=== PATIENT | female | born 1945 | race Caucasian/White ===

== ENCOUNTER 2017-06-04 11:23 | Emergency (ER) | payer MEDICARE ==
--- NOTE | 2017-06-04 11:55 | ER Document Report ---
ED Medical Screen (RME) - General Mode of Arrival: Wheelchair Information source: Patient TRAVEL OUTSIDE OF THE [place] IN LAST 30 DAYS: No - HPI Patient complains to provider of: L foot pain Onset: Other - Pt. with several day h/o L foot pain -- denies h/o trauma. Also on home 02 but ran out of 02 in tank yesterday and has some wheezing. Pt. continues to smoke. - General Chief Complaint: Foot Pain Stated Complaint: LEFT FOOT PAIN Time Seen by Provider: 06/04/17 11:52 - Related Data Allergies/Adverse Reactions: ibuprofen [From Motrin] Allergy (Intermediate, Verified 11/07/16 12:05) norepinephrine bitartrate [From Levophed Bitartrate] Adverse Reaction ( Intermediate, Verified 11/07/16 12:05) Bradycardia Past Medical History - Social History Frequency of alcohol use: None Drug Abuse: None - Past Medical History Cardiac Medical History: Reports: Hx Congestive Heart Failure, Hx Coronary Artery Disease, Hx DVT, Hx Hypertension Denies: Hx Heart Murmur Pulmonary Medical History: Reports: Hx Asthma, Hx COPD Denies: Hx Respiratory Failure, Hx Sleep Apnea, Hx Tuberculosis Endocrine Medical History: Reports: Hx Diabetes Mellitus Type 2 Renal/ Medical History: Reports: Hx Renal Insufficiency. Denies: Hx Peritoneal Dialysis GI Medical History: Reports: Hx Diverticulitis, Hx Gastroesophageal Reflux Disease, Hx Hiatal Hernia, Hx Ulcer Musculoskeltal Medical History: Reports Hx Arthritis Psychiatric Medical History: Denies: Hx Depression Traumatic Medical History: Reports: Hx Fractures - several broken ribs Past Surgical History: Reports: Hx Appendectomy, Hx Cholecystectomy, Hx Herniorrhaphy, Hx Hysterectomy, Hx Orthopedic Surgery - rotator cuff - Immunizations Immunizations up to date: Yes Hx Diphtheria, Pertussis, Tetanus Vaccination: No Doctor's Discharge - Discharge Clinical Impression: Plantar fasciitis of left foot Condition: Stable Disposition: HOME, SELF-CARE Instructions: Plantar Fasciitis or Heel Spur ([facility]), Ice & Elevation ([facility]), Warm Packs ([facility]) Additional Instructions: Rest, Ice, Compression, Elevation Tylenol/ibuprofen as needed Light stretches daily-- as shown Strength exercises as able Moist heat and massage may help Epsom salt soaks may help F/u with your PCP in 2-3 days for a recheck Consider consult(s) with Orthopedics/podiatry for ongoing/worsening symptoms Return to the ED with any worsening pain, swelling, numbness/tingling, muscle weakness, development of fever, redness, red tracking/streaks, abscess, purulent discharge, or any other worsening/concerning symptoms otherwise. Forms: Elevated Blood Pressure, Smoking Cessation Education Referrals: [facility] ([facility]) [Provider Group] - Follow up in 1 week
--- NOTE | 2017-06-04 12:16 | RADIOLOGY REPORT (SQ) ---
EXAM DESCRIPTION: FOOT LEFT COMPLETE COMPLETED DATE/TIME: 06/04/2017 12:07 pm REASON FOR STUDY: L foot pain COMPARISON: None. NUMBER OF VIEWS: Three views. TECHNIQUE: AP, lateral and oblique without weight bearing radiographic images acquired of the left f oot. LIMITATIONS: None. FINDINGS: MINERALIZATION: Normal. BONES: No acute fracture or dislocation. No worrisome bone lesions. No significant osteophytes. JOINTS: No erosions. No clovis-articular osteopenia. No chondrocalcinosis. SOFT TISSUES: No swelling. No calcifications. OTHER: No other significant finding. IMPRESSION: NEGATIVE STUDY OF THE LEFT FOOT. NO EXPLANATION FOR PAIN. TECHNICAL DOCUMENTATION: JOB ID: [id number] [employer]- All Rights Reserved
[2017-06-04] MEDS ORDERED: METHYLPREDNISOLONE INJ 125 MG/2 ML SDV IM ONE (12:22)
--- NOTE | 2017-06-04 12:34 | ER Document Report ---
HPI - HPI Pain Level: 5 Notes: Patient is a 71-year-old female presents the ED complaining of left foot pain 6 months with an increased pain the last couple days. Patient states that she has pain with ambulation and with her first morning steps. Patient states the pain is sharp and achy. The pain does not radiate. Patient states she still is move her foot around in her toes without any difficulties. She still has sensation in her toes without any numbness/tingling. She has not noticed any redness, abscess, discharge. Patient has a history of COPD, CHF, hypertension, diabetes, and GERD. She has chronic issues with wheezing and shortness of breath. She denies any acute respiratory changes or distress. Patient states that she is not here for her breathing, only her foot. Denies any fever, headache, URI, sore throat, chest pain, palpitations, abdominal pain, nausea/ vomiting/diarrhea, dysuria, muscle paralysis/weakness, or rash. Patient does smoke but does not do any other illicit drugs. Patient is allergic to NSAIDs as that causes a rash. No other recent illness, travel, sick contacts. - ROS Notes: REVIEW OF SYSTEMS: CONSTITUTIONAL : Denies fever, chills, or sweats. Denies recent illness. EENT: Denies eye, ear, throat, or mouth pain or symptoms. Denies nasal or sinus congestion or discharge. Denies throat, tongue, or mouth swelling or difficulty swallowing. CARDIOVASCULAR: Denies chest pain. Denies palpitations or racing or irregular heart beat. Denies ankle edema. RESPIRATORY: See HPI. Chronic without acute changes per patient. GASTROINTESTINAL: Denies abdominal pain or distention. Denies nausea, vomiting , or diarrhea. Denies blood in vomitus, stools, or per rectum. Denies black, tarry stools. Denies constipation. GENITOURINARY: Denies difficulty urinating, painful urination, burning, frequency, blood in urine, or discharge. MUSCULOSKELETAL: see hpi SKIN: Denies rash, lesions or sores. NEUROLOGICAL: Denies confusion or altered mental status. Denies passing out or loss of consciousness. Denies dizziness or lightheadedness. Denies headache. Denies weakness or paralysis or loss of use of either side. Denies problems with gait or speech. Denies sensory loss, numbness, or tingling. ALL OTHER SYSTEMS REVIEWED AND NEGATIVE. Dictation was performed using [employer] voice recognition software - CARDIOVASCULAR Cardiovascular: DENIES: Chest pain - REPRODUCTIVE Reproductive: DENIES: : - DERM Skin Color: [place] Past Medical History - General Information source: Patient - Social History Smoking Status: Current Every Day Smoker Chew tobacco use (# tins/day): No Frequency of alcohol use: None Drug Abuse: None Family History: Hypertension Patient has suicidal ideation: No Patient has homicidal ideation: No - Past Medical History Cardiac Medical History: Reports: Hx Congestive Heart Failure, Hx Coronary Artery Disease, Hx DVT, Hx Hypertension Denies: Hx Heart Murmur Pulmonary Medical History: Reports: Hx Asthma, Hx COPD Denies: Hx Respiratory Failure, Hx Sleep Apnea, Hx Tuberculosis Endocrine Medical History: Reports: Hx Diabetes Mellitus Type 2 Renal/ Medical History: Reports: Hx Renal Insufficiency. Denies: Hx Peritoneal Dialysis GI Medical History: Reports: Hx Diverticulitis, Hx Gastroesophageal Reflux Disease, Hx Hiatal Hernia, Hx Ulcer Musculoskeltal Medical History: Reports Hx Arthritis Psychiatric Medical History: Denies: Hx Depression Traumatic Medical History: Reports: Hx Fractures - several broken ribs Past Surgical History: Reports: Hx Appendectomy, Hx Cholecystectomy, Hx Herniorrhaphy, Hx Hysterectomy, Hx Orthopedic Surgery - rotator cuff - Immunizations Immunizations up to date: Yes Hx Diphtheria, Pertussis, Tetanus Vaccination: No Hx Pneumococcal Vaccination: 08/30/14 Vertical Provider Document - CONSTITUTIONAL Agree With Documented VS: Yes Notes: PHYSICAL EXAMINATION: GENERAL: Well-appearing, well-nourished and in no acute distress. obese and O2 via NC LUNGS: Prolonged expiration, decreased air movement, mild expiratory wheezes, no crackles. HEART: Regular rate and rhythm without murmurs, rubs, gallops. Musculoskeletal: Lt foot: FROM to passive/active. Strength 5+/5. + tenderness to plantar fascia without any erythema, swelling, abscess, streaks, or prox lymphadenopathy. Pulses 2+. Sensation intact. Extremities: No cyanosis, clubbing, or edema b/l. Peripheral pulses 2+. Capillary refill less than 3 seconds. NEUROLOGICAL: Normal sensory, motor exams PSYCH: Normal mood, normal affect. SKIN: Warm, Dry, normal turgor, no rashes or lesions noted. - INFECTION CONTROL TRAVEL OUTSIDE OF THE [place] IN LAST 30 DAYS: No - RESPIRATORY O2 Sat by Pulse Oximetry: 94 Course - Re-evaluation Re-evalutation: 06/04/17 13:10 Patient is an afebrile, well-hydrated, 31-year-old female presents the ED with left foot pain, suspect plantar fasciitis based on H&P today. Vitals are stable. PE otherwise unremarkable. X-ray unremarkable for any acute pathology. Solu-Medrol 125 mg given IM today. Patient is advised that while on steroids she needs to monitor sugars very closely. Sugars have been averaging between 136-140. conservative measures for symptoms otherwise as reviewed in discharge. Stretches as reviewed with patient. Recheck with her PCM this week. Call orthopedic for an appointment/consult for possible further evaluation and consideration of an injection into the foot. Return to the ED with any worsening/concerning symptoms as reviewed in discharge. Patient is in agreement. - Vital Signs Vital signs: Temp Pulse Resp BP Pulse Ox 98.1 F 74 20 146/71 H 94 06/04/17 11:35 06/04/17 11:35 06/04/17 12:12 06/04/17 11:35 06/04/17 11:35 Discharge - Discharge Clinical Impression: Plantar fasciitis of left foot Condition: Stable Disposition: HOME, SELF-CARE Instructions: Ice & Elevation ([facility]), Plantar Fasciitis or Heel Spur ([facility]), Warm Packs ([facility]) Additional Instructions: Rest, Ice, Compression, Elevation Tylenol/ibuprofen as needed Light stretches daily-- as shown Strength exercises as able Moist heat and massage may help Epsom salt soaks may help F/u with your PCP in 2-3 days for a recheck Consider consult(s) with Orthopedics/podiatry for ongoing/worsening symptoms Return to the ED with any worsening pain, swelling, numbness/tingling, muscle weakness, development of fever, redness, red tracking/streaks, abscess, purulent discharge, or any other worsening/concerning symptoms otherwise. Forms: Elevated Blood Pressure, Smoking Cessation Education Referrals: [facility] ([facility]) [Provider Group] - Follow up in 1 week
[2017-06-04 13:02] VITALS: BP 141/70
== END 2017-06-04 13:02 | disposition home or self-care (01) ==
LOC: ER 11:23
DX: M72.2 Plantar fascial fibromatosis (principal); M79.672 Pain in left foot; J44.9 Chronic obstructive pulmonary disease, unspecified; I50.9 Heart failure, unspecified; I11.0 Hypertensive heart disease with heart failure; E11.9 Type 2 diabetes mellitus without complications; K21.9 Gastro-esophageal reflux disease without esophagitis; F17.200 Nicotine dependence, unspecified, uncomplicated; Z86.718 Personal history of other venous thrombosis and embolism; Z90.49 Acquired absence of other specified parts of digestive tract; Z90.710 Acquired absence of both cervix and uterus
CPT/HCPCS: 99283; 96372; 73630; J2930

== ENCOUNTER → 2017-08-31 | Outpatient (CLI) | payer MEDICARE ==
--- NOTE | 2017-08-31 16:49 | WOMENS IMAGING REPORT ---
EXAM DESCRIPTION: BILAT SCREENING MAMMO W/CAD COMPLETED DATE/TIME: 08/31/2017 11:01 am REASON FOR STUDY: ROUTINE SCREENING; Z12.31 Z12.31 ENCNTR SCREEN MAMMOGRAM FOR MALIGNANT NEOPLASM O F SERINA COMPARISON: 2015 TECHNIQUE: Standard craniocaudal and mediolateral oblique views of each breast recorded using digita l acquisition. LIMITATIONS: None. FINDINGS: No masses, calcifications or architectural distortion. No areas of suspicion. Read with the assistance of CAD. .[facility] - R2 Cenova Version 1.3 .[facility] - R2 Cenova Version 1.3 .[facility] - R2 Cenova Version 2.4 .[facility] [place] - R2 Cenova Version 2.4 .[facility] - R2 [employer] Version 9.2 IMPRESSION: NORMAL MAMMOGRAM. BIRADS 1. BREAST DENSITY: b. There are scattered areas of fibroglandular density. BIRAD: 1 NEGATIVE RECOMMENDATION: ROUTINE SCREENING COMMENT: The patient has been notified of the results by letter per SA requirements. Additional no tification policies are in place for contacting patient with suspicious or incomplete findings. Quality ID #[id number]: The [employer] recommends an annual screening mammogram for women aged 40 years or over. This facility utilizes a reminder system to ensure that all patients receive reminder letters, and/or direct phone calls for appointments. This includes reminders for routine scr eening mammograms, diagnostic mammograms, or other Breast Imaging Interventions when appropriate. Th is patient will be placed in the appropriate reminder system. The [employer] (ACR) has developed recommendations for screening MRI of the breast s in certain patient populations, to be used in conjunction with mammography. Breast MRI surveillanc e may be appropriate for women with more than 20% lifetime risk of developing breast cancer as deter mined by genetic testing, significant family history of the disease, or history of mantle radiation f or Hodgkins Disease. ACR Practice Guidelines 2008. TECHNICAL DOCUMENTATION: FINDING NUMBER: (1) ASSESSMENT: (1) JOB ID: [id number] [employer]- All Rights Reserved
== END ==
LOC: WI 10:50
PROVIDERS: ATTEND Family Medicine
DX: Z12.31 Encounter for screening mammogram for malignant neoplasm of breast (principal)
CPT/HCPCS: 77067; G0202

== ENCOUNTER 2017-09-14 08:28 | Day surgery (SDC) | payer MEDICARE ==
[~2017-09-14 08:28] MED LIST: BUPIVACAINE HCL 0.75% INJ/PF (7.5 MG/1 ML) 10 ML SDV OS PRN; KETOROLAC TROMETHAMINE 0.45% 4 DROP/0.4 ML DROPERETTE OS PRN; LIDOCAINE 4% INJ/PF (40 MG/ML) 5 ML AMPUL OS PRN
[2017-09-14] MEDS: TETRACAINE HCL 0.5% OPH SOLN 0.6 ML DROPERETTE OS PRN ×2 (09:18→09:45)
[2017-09-14] MEDS: TROPICAMIDE 1% OPH SOLN 3 ML OS PRN ×3 (09:19→09:44)
[2017-09-14] MEDS: CYCLOPENTOLATE 0.2%/PHENYLEPHRINE 1% OPH SOLN 2 ML OS PRN ×3 (09:19→09:45)
[2017-09-14] MEDS: BESIFLOXACIN HCL 0.6% OPH SUSP 5 ML BOTTLE OS PRN ×4 (09:20→10:27)
[2017-09-14] MEDS ORDERED: ALBUTEROL SULFATE 0.083% NEB 2.5 MG/3 ML AMPUL NEB ONE (09:30)
[2017-09-14] MEDS ORDERED: FENTANYL CITRATE INJ/PF 100 MCG/2 ML AMPUL ONE (09:39)
[2017-09-14] MEDS ORDERED: MIDAZOLAM 2 MG/2 ML INJ ONE (09:39)
[2017-09-14] MEDS: CHONDR SU A NA/HYALUR INTRAOC KIT (SURGICARE) ONE ×2 (10:15)
[2017-09-14] MEDS: EPINEPHRINE INJ/PF 1 MG/1 ML AMPULE ONE ×2 (10:15)
--- NOTE | 2017-09-14 10:47 | [facility] DISCHARGE SUMMARY E ---
[facility] Discharge Summary NAME: GAVI PEDRO AGE: 71Y ADMITTED: 09/14/2017 DISCHARGED: 09/14/2017 HOSPITAL COURSE: The patient is a 71-year-old lady who underwent uneventful cataract extraction with intraocular lens implant, left eye, on 09/14/2017. She will be discharged to home. She is instructed to resume preoperative medications, to take Tylenol as needed for discomfort, keep her eye shielded, to use Besivance, Durezol, and Ilevro at 3 p.m. and 8 p.m., and to follow up in my office in 1 day. DICTATING PHYSICIAN: FORD GARCIA M.D. [id number] PHY#: [id number] ID: [id number] JOB#: [id number] ACCT: [id number] cc:FORD GARCIA M.D. >
--- NOTE | 2017-09-14 10:48 | [facility] OPERATIVE REPORT E ---
[facility] Operative Report NAME: GAVI PEDRO AGE: 71Y DATE OF SURGERY: 09/14/2017 ROOM: PREOPERATIVE DIAGNOSIS: Cataract, left eye. POSTOPERATIVE DIAGNOSIS: Cataract, left eye. OPERATION: Phacoemulsification with posterior chamber intraocular lens, left eye. SURGEON: FORD GARCIA M.D. ANESTHESIA: Topical with MAC. INDICATIONS FOR SURGERY: Difficulty reading words on TV and glare at night. Best corrected visual acuity 20/50. DESCRIPTION OF PROCEDURE: The patient was brought to the Operating Room and placed on the operative table. Following tetracaine drops, topical anesthesia was administered. This consisted of instrument wipe pledgets soaked in a solution of 4% Xylocaine mixed with 0.75% Marcaine in a 1:2 ratio. A 2 x 1 cm pledget was placed in the superior fornix. A 1 x 1 cm pledget was placed in the inferior fornix. The eye was patched shut for 5 minutes. The patch was removed. The eye was sterilely prepped and draped in the usual manner. Lid speculum was placed in the eye. The pledgets were removed. 4-0 black silk sutures were placed around the superior and the inferior rectus muscles to be used as traction. A conjunctival peritomy was made at the 10 o'clock position. Hemostasis was obtained with bipolar cautery. A posterior limbal groove was created using a crescent knife and dissected anteriorly towards the cornea. A sharp point blade was used to create a paracentesis site at the 2 o'clock position. A 2.4 mm keratome was used to enter the anterior chamber through the groove. Viscoelastic was injected into the anterior chamber. An anterior capsulotomy was performed using Utrata forceps in a capsulorrhexis fashion. Hydrodissection and hydrodelineation were performed. Phacoemulsification was performed in dkjlou-uqz-zepqvju technique. A total of 5.83 CDE phaco time was used. Following this, the I/A unit was used to remove residual cortex. Viscoelastic was injected into the capsular bag. Intraocular lens model [id number], 22.0 diopters, serial number [id number] was placed in the capsular bag. The I/A unit was used to remove residual viscoelastic. The wound was seen to be watertight under high and low pressure, and no sutures were placed. The intraocular lens was well centered. The pressure was adjusted in the eye to normal pressure. The 4-0 black silk sutures and lid speculum were removed. The eye was shielded after Besivance drops were placed. The patient tolerated the procedure well and was sent to the Recovery Room in good condition. DICTATING PHYSICIAN: FORD GARCIA M.D. [id number] PHY#: [id number] ID: [id number] JOB#: [id number] ACCT: [id number] cc:FORD GARCIA M.D. >
== END 2017-09-14 11:15 | disposition home or self-care (01) ==
LOC: SC 08:28
PROVIDERS: ATTEND Ophthalmology
PROC: 08RK3JZ Replacement of Left Lens with Synthetic Substitute, Percutaneous Approach (ICD-10-PCS; principal; 2017-09-14 10:00)
DX: H25.813 Combined forms of age-related cataract, bilateral (principal); H53.453 Other localized visual field defect, bilateral; H04.123 Dry eye syndrome of bilateral lacrimal glands; M19.90 Unspecified osteoarthritis, unspecified site; E11.9 Type 2 diabetes mellitus without complications; E78.00 Pure hypercholesterolemia, unspecified; G47.30 Sleep apnea, unspecified; F17.210 Nicotine dependence, cigarettes, uncomplicated; J44.9 Chronic obstructive pulmonary disease, unspecified; Z79.82 Long term (current) use of aspirin; Z79.899 Other long term (current) drug therapy; Z79.84 Long term (current) use of oral hypoglycemic drugs; Z79.51 Long term (current) use of inhaled steroids; Z99.81 Dependence on supplemental oxygen; Z86.73 Personal history of transient ischemic attack (TIA), and cerebral infarction without residual deficits
CPT/HCPCS: 66984; 82962; V2632; J2250; J3490 ×3; A9270 ×2; J0171; J3010; 142

== ENCOUNTER 2017-10-12 09:12 | Day surgery (SDC) | payer MEDICARE ==
[~2017-10-12 09:12] MED LIST changes: +BUPIVACAINE HCL 0.75% INJ/PF (7.5 MG/1 ML) 10 ML SDV OD PRN; -BUPIVACAINE HCL 0.75% INJ/PF (7.5 MG/1 ML) 10 ML SDV OS PRN; +CHONDR SU A NA/HYALUR INTRAOC KIT (SURGICARE) ONE; +EPINEPHRINE INJ/PF 1 MG/1 ML AMPULE ONE; +KETOROLAC TROMETHAMINE 0.45% 4 DROP/0.4 ML DROPERETTE OD PRN; -KETOROLAC TROMETHAMINE 0.45% 4 DROP/0.4 ML DROPERETTE OS PRN; +LIDOCAINE 4% INJ/PF (40 MG/ML) 5 ML AMPUL OD PRN; -LIDOCAINE 4% INJ/PF (40 MG/ML) 5 ML AMPUL OS PRN; +MIDAZOLAM 2 MG/2 ML INJ ONE
[2017-10-12] MEDS: BESIFLOXACIN HCL 0.6% OPH SUSP 5 ML BOTTLE OD PRN ×3 (09:39→10:33)
[2017-10-12] MEDS: CYCLOPENTOLATE 0.2%/PHENYLEPHRINE 1% OPH SOLN 2 ML OD PRN ×3 (09:39→09:59)
[2017-10-12] MEDS: TETRACAINE HCL 0.5% OPH SOLN 0.6 ML DROPERETTE OD PRN ×2 (09:39→09:59)
[2017-10-12] MEDS: TROPICAMIDE 1% OPH SOLN 3 ML OD PRN ×3 (09:39→09:59)
[2017-10-12] MEDS ORDERED: ALBUTEROL SULFATE 0.083% NEB 2.5 MG/3 ML AMPUL NEB ONE (09:40)
--- NOTE | 2017-10-12 10:43 | [facility] OPERATIVE REPORT E ---
[facility] Operative Report NAME: GAVI PEDRO AGE: 71Y DATE OF SURGERY: 10/12/2017 ROOM: PREOPERATIVE DIAGNOSIS: Cataract, right eye. POSTOPERATIVE DIAGNOSIS: Cataract, right eye. PROCEDURE PERFORMED: Phacoemulsification with posterior chamber intraocular lens, right eye. SURGEON: Adrienne Garcia MD ANESTHESIA: Topical with MAC. INDICATIONS FOR SURGERY: Difficulty with driving at night and words on TV. Best corrected visual acuity 20/50. PROCEDURE: The patient was brought to the operating room and placed on the operative table. Following tetracaine drops, topical anesthesia was administered. This consisted of instrument wipe pledgets soaked in a solution of 4% Xylocaine mixed with 0.75% Marcaine in a 1:2 ratio. A 2 x 1 cm pledget was placed in the superior fornix. A 1 x 1 cm pledget was placed in the inferior fornix. The eye was patched shut for 5 minutes. The patch was removed. The eye was sterilely prepped and draped in the usual manner. Lid speculum was placed in the eye. The pledgets were removed. 4-0 black silk sutures were placed around the superior and the inferior rectus muscles to be used as traction. A conjunctival peritomy was made at the 10 o'clock position. Hemostasis was obtained with bipolar cautery. A posterior limbal groove was created using a crescent knife and dissected anteriorly towards the cornea. A sharp point blade was used to create a paracentesis site at the 2 o'clock position. A 2.4 mm keratome was used to enter the anterior chamber through the groove. Viscoelastic was injected into the anterior chamber. An anterior capsulotomy was performed using Utrata forceps in a capsulorrhexis fashion. Hydrodissection and hydrodelineation were performed. Phacoemulsification was performed in catfyr-igy-rajlmfp technique. A total of 42 seconds phaco time was used. Following this, the I/A unit was used to remove residual cortex. Viscoelastic was injected into the capsular bag. Intraocular lens model [id number], 22.0 diopters, serial number [id number] was placed in the capsular bag. The I/A unit was used to remove residual viscoelastic. The wound was seen to be watertight under high and low pressure, and no sutures were placed. The intraocular lens was well centered. The pressure was adjusted in the eye to normal pressure. The 4-0 black silk sutures and lid speculum were removed. The eye was shielded after Besivance drops were placed. The patient tolerated the procedure well and was sent to the recovery room in good condition. DICTATING PHYSICIAN: ADRIENNE GARCIA M.D. [id number] PHY#: [id number] ID: [id number] JOB#: [id number] ACCT: [id number] cc:ADRIENNE GARCIA M.D. >
--- NOTE | 2017-10-12 10:48 | [facility] DISCHARGE SUMMARY E ---
[facility] Discharge Summary NAME: GAVI PEDRO AGE: 71Y ADMITTED: 10/12/2017 DISCHARGED: 10/12/2017 PREOPERATIVE DIAGNOSIS: Cataract, right eye. POSTOPERATIVE DIAGNOSIS: Cataract, right eye. HOSPITAL COURSE: The patient is a 71-year-old lady who underwent uneventful cataract extraction with intraocular lens implant, right eye, on 10/12/2017. She will be discharged to home. She was instructed to resume preoperative medications, take Tylenol as needed for discomfort, to keep her eye shielded, to use Besivance, Durezol, and Ilevro at 3 p.m. and 8 p.m., and to followup in my office in 1 day. DICTATING PHYSICIAN: FORD GARCIA M.D. [id number] PHY#: [id number] ID: [id number] JOB#: [id number] ACCT: [id number] cc:FORD GARCIA M.D. >
== END 2017-10-12 11:13 | disposition home or self-care (01) ==
LOC: SC 09:12
PROVIDERS: ATTEND Ophthalmology
PROC: 08RJ3JZ Replacement of Right Lens with Synthetic Substitute, Percutaneous Approach (ICD-10-PCS; principal; 2017-10-12 10:30)
DX: H25.811 Combined forms of age-related cataract, right eye (principal); Z96.1 Presence of intraocular lens; J44.9 Chronic obstructive pulmonary disease, unspecified; I10 Essential (primary) hypertension; M19.90 Unspecified osteoarthritis, unspecified site; E11.9 Type 2 diabetes mellitus without complications; D64.9 Anemia, unspecified; Z79.51 Long term (current) use of inhaled steroids; Z79.4 Long term (current) use of insulin; Z79.82 Long term (current) use of aspirin; Z99.81 Dependence on supplemental oxygen
CPT/HCPCS: 66984; 82962; V2632; J2250; J3490 ×3; A9270 ×2; J0171; 142

== ENCOUNTER 2018-02-20 20:24 | Inpatient (IN) | payer MEDICARE ==
[2018-02-20] MEDS ORDERED: NORMAL SALINE 1000 ML 1,000 ML IV ONE (21:03)
[2018-02-20] MEDS ORDERED: ALBUTEROL SULFATE 0.083% NEB 2.5 MG/3 ML AMPUL NEB ONE (21:03)
--- NOTE | 2018-02-20 21:05 | ER Document Report ---
ED Fever - General Stated Complaint: DIFFICULTY BREATHING Time Seen by Provider: 02/20/18 20:59 Notes: Patient is a 72-year-old female with a past medical history of COPD with chronic 3 L by nasal cannula oxygen dependence at baseline who presents with several hours of worsening shortness of breath. Patient states that her symptoms started relatively abruptly 2-3 hours ago and have been worsening since that time. She describes a sensation of tightness with her breathing but denies any chest pain or discomfort. Nothing worsens her symptoms. She states this feels very similar to prior COPD exacerbations that she has had in the past. She has not seen her primary doctor regarding today's concerns, EMS was contacted and transported her to the hospital. She notes that her symptoms have improved after receiving multiple [id number] nebulizers and steroids in route to the hospital. She has required hospitalization for her COPD in the past but never intubation or ICU admission. She notes compliance with all medications. TRAVEL OUTSIDE OF THE [place] IN LAST 30 DAYS: No - Related Data Allergies/Adverse Reactions: ibuprofen [From Motrin] Allergy (Intermediate, Verified 10/12/17 10:13) RASH/UTICARTIA Past Medical History - General Information source: Patient - Social History Smoking Status: Former Smoker Frequency of alcohol use: None Drug Abuse: None Lives with: Spouse/Significant other Family History: Hypertension - Past Medical History Cardiac Medical History: Reports: Hx Congestive Heart Failure, Hx Coronary Artery Disease, Hx DVT, Hx Hypertension - SOMETIMES Denies: Hx Heart Attack, Hx Heart Murmur Pulmonary Medical History: Reports: Hx Asthma - LITTLE, Hx COPD Denies: Hx Respiratory Failure, Hx Sleep Apnea, Hx Tuberculosis Neurological Medical History: Denies: Hx Cerebrovascular Accident, Hx Seizures Endocrine Medical History: Reports: Hx Diabetes Mellitus Type 2 Renal/ Medical History: Reports: Hx Renal Insufficiency. Denies: Hx Peritoneal Dialysis GI Medical History: Reports: Hx Diverticulitis, Hx Gastroesophageal Reflux Disease. Denies: Hx Hepatitis, Hx Hiatal Hernia, Hx Pancreatitis, Hx Ulcer - ? Musculoskeltal Medical History: Reports Hx Arthritis Psychiatric Medical History: Denies: Hx Depression Traumatic Medical History: Reports: Hx Fractures - several broken ribs Infectious Medical History: Denies: Hx Hepatitis Past Surgical History: Reports: Hx Appendectomy, Hx Cholecystectomy, Hx Herniorrhaphy, Hx Hysterectomy, Hx Orthopedic Surgery - rotator cuff. Denies: Hx Mastectomy, Hx Open Heart Surgery, Hx Pacemaker - Immunizations Immunizations up to date: Yes Hx Diphtheria, Pertussis, Tetanus Vaccination: No Hx Pneumococcal Vaccination: 08/30/14 Review of Systems - Review of Systems Notes: Constitutional: Negative for fever. HENT: Negative for sore throat. Eyes: Negative for visual changes. Cardiovascular: Negative for chest pain. Respiratory: Positive for shortness of breath. Gastrointestinal: Negative for abdominal pain, vomiting or diarrhea. Genitourinary: Negative for dysuria. Musculoskeletal: Negative for back pain. Skin: Negative for rash. Neurological: Negative for headaches, weakness or numbness. 10 point ROS negative except as marked above and in HPI. Physical Exam - Vital signs Vitals: Resp Pulse Ox 12 89 L 02/20/18 20:56 02/20/18 20:56 Interpretation: Hypoxic Notes: PHYSICAL EXAMINATION: GENERAL: Appears moderately uncomfortable but no acute distress HEAD: Atraumatic, normocephalic. EYES: Pupils equal round and reactive to light, extraocular movements intact, sclera anicteric, conjunctiva are normal. ENT: nares patent, oropharynx clear without exudates. Moderately dry mucous membranes. NECK: Normal range of motion, supple without lymphadenopathy LUNGS: Breath sounds diminished at the right base. Scant expiratory wheezing all lung blackmon. Mild tachypnea HEART: Regular tachycardia without murmurs ABDOMEN: Soft, nontender, normoactive bowel sounds. No guarding, no rebound. No masses appreciated. EXTREMITIES: Normal range of motion, no pitting or edema. No cyanosis. NEUROLOGICAL: No focal neurological deficits. Moves all extremities spontaneously and on command. PSYCH: Normal mood, normal affect. SKIN: Warm, Dry, normal turgor, no rashes or lesions noted. Course - Re-evaluation Re-evalutation: 02/20/18 21:04 Patient presents with mild wheezing, tachypnea, borderline hypoxemia on her baseline 3 L by nasal cannula. Overall mildly ill in appearance, slightly diminished at the right base worrisome for possible pneumonia. Will obtain chest x-ray, labs, provide nebs, patient has received Solu-Medrol prior to coming to the hospital by EMS as well as for nebulizers. 02/20/18 22:23 Labs show mild leukocytosis of 13.1. Otherwise unremarkable. Chest x-ray shows no acute infiltrate the patient continues to be diminished at the right base and despite not having any active wheezing at this time continues to be tachypneic and saturating 88% on 4 L by nasal cannula. I do therefore clinically suspect that she has an acute pneumonia will start her on IV levofloxacin. Given her ongoing elevated work of breathing I do not believe she is appropriate for discharge at this time point. The patient and her are in agreement. I discussed this case with Dr. Bartlett and he has accepted the patient for admission - Vital Signs Vital signs: Temp Pulse Resp BP Pulse Ox 21 H 171/88 H 93 02/21/18 02:01 02/21/18 02:01 02/21/18 02:01 - Laboratory Result Diagrams: 02/20/18 19:44 02/20/18 19:44 Laboratory results interpreted by me: 02/20/18 02/20/18 19:44 19:44 WBC 13.1 H Hgb 11.8 L Hct 35.8 L Absolute Neutrophils 8.8 H Carbon Dioxide 33 H BUN 24 H Est GFR (Non-Af Amer) 50 L - Diagnostic Test Radiology reviewed: Image reviewed, Reports reviewed Radiology results interpreted by me: 02/20/18 22:24 Chest x-ray: No acute infiltrate - EKG Interpretation by Me Additional EKG results interpreted by me: 02/21/18 03:27 Sinus rhythm. Rate 83. Left bundle branch block. QTC 513 Discharge - Discharge Clinical Impression: COPD exacerbation Pneumonia Qualifiers: Pneumonia type: due to unspecified organism Laterality: unspecified laterality Lung location: unspecified part of lung Qualified Code(s): J18.9 - Pneumonia, unspecified organism Condition: Fair Disposition: ADMITTED OBSERVATION Admitting Provider: Gema Bartlett Unit Admitted: Telemetry
[2018-02-20 21:14] LABS: ABSOLUTE EOSINOPHILS # (AUTO) 0.2 10^3/uL (0.0-0.6); ABSOLUTE LYMPHOCYTES (AUTO) 3.1 10^3/uL (0.5-4.7); ABSOLUTE MONOCYTES (AUTO) 0.9 10^3/uL (0.1-1.4); ABSOLUTE NEUT (AUTO) 8.8 10^3/uL (1.7-8.2); BASOPHILS % (AUTO) 0.3 % (0-2); EOSINOPHILS % (AUTO) 1.9 % (0-6); HEMATOCRIT 35.8 % (36.0-47.0); HEMOGLOBIN 11.8 g/dL (12.0-15.5); LYMPHOCYTES % (AUTO) 23.9 % (13-45); MEAN CORPUSCULAR HEMOGLOBIN 30.3 pg (27.0-33.4); MEAN CORPUSCULAR VOLUME 92 fl (80-97); PLATELET COUNT 229 10^3/uL (150-450); RED BLOOD COUNT 3.91 10^6/uL (3.72-5.28); SEGMENTED NEUTROPHILS % (AUTO) 66.9 % (42-78); TOTAL CELLS COUNTED % (AUTO) 100 %; WHITE BLOOD COUNT 13.1 10^3/uL (4.0-10.5)
[2018-02-20 21:22] LABS: ANION GAP 6 (5-19); BLOOD UREA NITROGEN 24 mg/dL (7-20); CALCIUM 9.1 mg/dL (8.4-10.2); CARBON DIOXIDE 33 mmol/L (22-30); CHLORIDE 101 mmol/L (98-107); GLUCOSE 98 mg/dL (75-110); POTASSIUM 4.5 mmol/L (3.6-5.0); SODIUM 140.2 mmol/L (137-145)
--- NOTE | 2018-02-20 21:46 | RADIOLOGY REPORT (SQ) ---
EXAM DESCRIPTION: CHEST SINGLE VIEW COMPLETED DATE/TIME: 02/20/2018 9:32 pm REASON FOR STUDY: STROKE ALERT COMPARISON: 11/07/2016. EXAM PARAMETERS: NUMBER OF VIEWS: One view. TECHNIQUE: Single frontal radiographic view of the chest acquired. RADIATION DOSE: NA LIMITATIONS: None. FINDINGS: LUNGS AND PLEURA: No opacities, masses or pneumothorax. No pleural effusion. MEDIASTINUM AND HILAR STRUCTURES: No masses. Contour normal. HEART AND VASCULAR STRUCTURES: Heart upper limits of normal in size. Normal vasculature. BONES: No acute findings. Old rib fractures. HARDWARE: None in the chest. OTHER: No other significant finding. IMPRESSION: NO ACUTE RADIOGRAPHIC FINDING IN THE CHEST. TECHNICAL DOCUMENTATION: JOB ID: [id number] [employer]- All Rights Reserved Reading location - IP/workstation name: [email or web address]
[2018-02-20] MEDS ORDERED: LEVOFLOXACIN 750 MG/D5W RTU 750 MG/150 ML RTUPB IV ONE (22:16)
[2018-02-20] MEDS ORDERED: LACTULOSE SYRUP 20 GM/30 ML UDCUP PO ONE (22:20)
[2018-02-20] MEDS ORDERED: HYDRALAZINE HCL INJ/PF 20 MG/1 ML SDV IV PRN (22:20)
[2018-02-20] MEDS ORDERED: GUAIFENESIN SYRP 200 MG/10 ML UDC PO PRN (22:21)
[2018-02-20] MEDS ORDERED: IPRATROPIUM/ALBUTEROL 0.5-2.5 MG/3 ML AMPUL NEB PRN (22:21)
[2018-02-20] MEDS ORDERED: DEXTROSE 50%-WATER 25 GM/50 ML DISP.SYRIN IV PRN ×2 (22:24)
[2018-02-20] MEDS ORDERED: GLUCAGON,HUMAN RECOMB 1 MG INJ IM PRN (22:24)
[2018-02-20] MEDS ORDERED: DEXTROSE 40% GEL 15 GM TUBE PO PRN ×2 (22:24)
[2018-02-20] MEDS ORDERED: CHLORPHENIRAMINE MALEATE 4 MG TABLET PO SCH (22:30)
[2018-02-20] MEDS ORDERED: FLUTICASONE NASAL SPRAY 50 MCG/SPRY 120 SPRAY/16 GM NASL ONE (22:45)
--- NOTE | 2018-02-20 23:58 | EKG REPORT ---
SEVERITY:- ABNORMAL ECG - SINUS RHYTHM LEFT BUNDLE BRANCH BLOCK : Confirmed by: Paras Alvarado MD 20-Feb-2018 23:58:21
[2018-02-21] MEDS: ACETAMINOPHEN 325 MG TABLET PO PRN (02:30)
[2018-02-21] MEDS ORDERED: CHLORPHENIRAMINE MALEATE 4 MG TABLET ONE (03:28)
[2018-02-21] MEDS: INSULIN LISPRO 100 UNIT/ML 3 ML VIAL SUBCUT PRN ×2 (03:39→08:13)
[2018-02-21] MEDS ORDERED: LACTULOSE SYRUP 20 GM/30 ML UDCUP ONE (03:39)
[2018-02-21] MEDS ORDERED: LEVOFLOXACIN 750 MG/D5W RTU 750 MG/150 ML RTUPB IV ONE (04:00)
[2018-02-21] MEDS: IPRATROPIUM/ALBUTEROL 0.5-2.5 MG/3 ML AMPUL NEB SCH ×4 (04:22→19:58)
[2018-02-21 04:48] LABS: ABSOLUTE LYMPHOCYTES (AUTO) 0.7 10^3/uL (0.5-4.7); ABSOLUTE MONOCYTES (AUTO) 0.1 10^3/uL (0.1-1.4); ABSOLUTE NEUT (AUTO) 9.9 10^3/uL (1.7-8.2); BASOPHILS % (AUTO) 0.1 % (0-2); HEMATOCRIT 33.7 % (36.0-47.0); HEMOGLOBIN 11.3 g/dL (12.0-15.5); LYMPHOCYTES % (AUTO) 6.9 % (13-45); MEAN CORPUSCULAR HEMOGLOBIN 30.4 pg (27.0-33.4); MEAN CORPUSCULAR HGB CONC 33.4 g/dL (32.0-36.0); MEAN CORPUSCULAR VOLUME 91 fl (80-97); MONOCYTES % (AUTO) 0.7 % (3-13); PLATELET COUNT 203 10^3/uL (150-450); RED CELL DISTRIBUTION WIDTH 13.8 % (11.5-14.0); SEGMENTED NEUTROPHILS % (AUTO) 92.3 % (42-78); TOTAL CELLS COUNTED % (AUTO) 100 %; WHITE BLOOD COUNT 10.7 10^3/uL (4.0-10.5)
[2018-02-21] MEDS ORDERED: FLUTICASONE NASAL SPRAY 50 MCG/SPRY 120 SPRAY/16 GM ONE (04:52)
[2018-02-21 05:07] LABS: ANION GAP 13 (5-19); BLOOD UREA NITROGEN 22 mg/dL (7-20); CALCIUM 9.4 mg/dL (8.4-10.2); CARBON DIOXIDE 26 mmol/L (22-30); CHLORIDE 100 mmol/L (98-107); GLUCOSE 239 mg/dL (75-110); POTASSIUM 4.8 mmol/L (3.6-5.0); SODIUM 138.5 mmol/L (137-145)
[2018-02-21] MEDS ORDERED: HEPARIN SOD (PORCINE) 5,000 UNIT/ML 1 ML SYRINGE SUBCUT SCH (06:00)
--- NOTE | 2018-02-21 06:45 | PDOC H&P ---
History of Present Illness Admission Date/PCP: 02/20/18 22:34 KYLE NIETO MD Patient complains of: Shortness of breath History of Present Illness: GAVI PEDRO is a 72 year old female with a past medical history of home oxygen dependent COPD, allergic sinusitis, GERD, osteoarthritis and sleep apnea. Patient presents with approximately a 5 day complaint of rhinorrhea, postnasal drip with abrupt worsening approximately 5 hours prior to presentation. She admits minimal productive cough of yellow sputum, no chest pain or palpitations. In the emergency room she is found to have an unremarkable workup with exception to oxygen saturations of 80% on 2 L. She receives Solu- Medrol and multiple nebulizer treatments with partial improvement and referred to the hospitalist for admission. Patient admits noncompliance with CPAP. Denies recent change in medications. Past Medical History Cardiac Medical History: Reports: Congestive Heart Failure, Coronary Artery Disease, DVT, Hypertension - SOMETIMES Denies: Myocardial Infarction, Heart Murmur Pulmonary Medical History: Reports: Asthma - LITTLE, Chronic Obstructive Pulmonary Disease (COPD) Denies: Respiratory Failure, Sleep Apnea, Tuberculosis Neurological Medical History: Denies: Seizures Endocrine Medical History: Reports: Diabetes Mellitus Type 2 GI Medical History: Reports: Diverticulitis, Gastroesophageal Reflux Disease Denies: Hepatitis, Hiatal Hernia Musculoskeltal Medical History: Reports: Arthritis Psychiatric Medical History: Denies: Depression Hematology: Reports: Anemia - TAKE IRON SOMETIMES Denies: Hemophilia, Sickle Cell Disease Past Surgical History Past Surgical History: Reports: Appendectomy, Cholecystectomy, Herniorrhaphy, Hysterectomy, Orthopedic Surgery - rotator cuff Denies: Amputation, Mastectomy, Pacemaker Social History Information Source: Patient, [facility] Records Lives with: Spouse/Significant other Smoking Status: Former Smoker Frequency of Alcohol Use: None Hx Recreational Drug Use: No Drugs: None Hx Prescription Drug Abuse: No - Advance Directive Resuscitation Status: Full Code Family History Family History: Hypertension Parental Family History Reviewed: Yes Children Family History Reviewed: Yes Sibling(s) Family History Reviewed.: Yes Medication/Allergy Home Medications: Metformin HCl [Glucophage 500 mg Tablet] 500 mg PO PCSUPPER 07/09/13 Fluticasone/Salmeterol [Advair 250-50 Diskus 14 Dose/Diskus] 1 inh IH Q12H #1 inhaler 11/15/ Tiotropium [place] [Spiriva Handihaler 18 mcg/dose (30 Dose)] 1 cap IH DAILY # 30 cap.w.dev 11/15/15 Gabapentin [Neurontin 300 mg Capsule] 300 mg PO DAILY 03/28/16 Potassium Chloride 10 meq PO DAILY 10/03/16 Sucralfate 1 gm PO QID 10/03/16 Aspirin [Aspirin EC] 81 mg PO DAILY 11/07/16 Lisinopril 5 mg PO DAILY 11/07/16 Albuterol Sulfate [Proair HFA] 1 - 2 puff IH Q4 PRN 09/10/17 Besifloxacin HCl [Besivance Drops] 1 drop OP .3PM AND 8PM TODAY 09/10/17 Difluprednate [Durezol] 1 drop OP .3PM AND 8PM TODAY 09/10/17 Hydrocodone/Acetaminophen [Hydrocodon-Acetaminophen 5-325] 1 each PO ASDIR PRN 09/10/17 Leg Cramps 3 tab PO QHS 09/10/17 Nepafenac [Ilevro] 1 drop OP .3PM AND 8PM TODAY 09/10/17 Allergies/Adverse Reactions: ibuprofen [From Motrin] Allergy (Intermediate, Verified 10/12/17 10:13) RASH/UTICARTIA Review of Systems Constitutional: ABSENT: chills, fever(s), headache(s), weight gain, weight loss Eyes: ABSENT: visual disturbances Ears: ABSENT: hearing changes Cardiovascular: ABSENT: chest pain, dyspnea on exertion, edema, orthropnea, palpitations Respiratory: ABSENT: cough, hemoptysis Gastrointestinal: ABSENT: abdominal pain, constipation, diarrhea, hematemesis, hematochezia, nausea, vomiting Genitourinary: ABSENT: dysuria, hematuria Musculoskeletal: ABSENT: joint swelling Integumentary: ABSENT: rash, wounds Neurological: ABSENT: abnormal gait, abnormal speech, confusion, dizziness, focal weakness, syncope Psychiatric: ABSENT: anxiety, depression, homidical ideation, suicidal ideation Endocrine: ABSENT: cold intolerance, heat intolerance, polydipsia, polyuria Hematologic/Lymphatic: ABSENT: easy bleeding, easy bruising Physical Exam Vital Signs: Temp Pulse Resp BP Pulse Ox 16 151/73 H 98 02/21/18 06:01 02/21/18 06:01 02/21/18 06:01 Intake & Output 03/31/18 04/01/18 04/02/18 11:59 11:59 11:59 Weight 83.915 kg General appearance: PRESENT: cooperative, mild distress, obese Head exam: PRESENT: atraumatic, normocephalic Eye exam: PRESENT: conjunctiva pink, EOMI, PERRLA. ABSENT: scleral icterus Ear exam: PRESENT: normal external ear exam Mouth exam: PRESENT: moist, tongue midline Neck exam: ABSENT: carotid bruit, JVD, lymphadenopathy, thyromegaly Respiratory exam: PRESENT: accessory muscle use, clear to auscultation chago, crackles, prolonged expiratory phas, rales, retraction, tachypnea. ABSENT: rhonchi, wheezes Cardiovascular exam: PRESENT: RRR. ABSENT: diastolic murmur, rubs, systolic murmur Pulses: PRESENT: normal dorsalis pedis pul Vascular exam: PRESENT: normal capillary refill GI/Abdominal exam: PRESENT: normal bowel sounds, soft. ABSENT: distended, guarding, mass, organolmegaly, rebound, tenderness Rectal exam: PRESENT: deferred Extremities exam: PRESENT: full ROM. ABSENT: calf tenderness, clubbing, pedal edema Neurological exam: PRESENT: alert, awake, oriented to person, oriented to place , oriented to time, oriented to situation, CN II-XII grossly intact. ABSENT: motor sensory deficit Psychiatric exam: PRESENT: appropriate affect, normal mood. ABSENT: homicidal ideation, suicidal ideation Skin exam: PRESENT: dry, intact, warm. ABSENT: cyanosis, rash Results Laboratory Results: 02/21/18 04:35 02/21/18 04:35 02/21/18 02/21/18 04:35 04:35 WBC 10.7 H RBC 3.70 L Hgb 11.3 L Hct 33.7 L MCV 91 MCH 30.4 MCHC 33.4 RDW 13.8 Plt Count 203 Seg Neutrophils % 92.3 H Lymphocytes % 6.9 L Monocytes % 0.7 L Eosinophils % 0.0 Basophils % 0.1 Absolute Neutrophils 9.9 H Absolute Lymphocytes 0.7 Absolute Monocytes 0.1 Absolute Eosinophils 0.0 Absolute Basophils 0.0 Sodium 138.5 Potassium 4.8 Chloride 100 Carbon Dioxide 26 Anion Gap 13 BUN 22 H Creatinine 0.90 Est GFR ( Amer) > 60 Est GFR (Non-Af Amer) > 60 Glucose 239 H Calcium 9.4 Impressions: Chest X-Ray 02/20/18 21:03 IMPRESSION: NO ACUTE RADIOGRAPHIC FINDING IN THE CHEST. Assessment & Plan - Diagnosis (1) COPD exacerbation Is this a current diagnosis for this admission?: Yes Plan: Telemetry bed, supplemental oxygen, flutter valve, incentive spirometry, albuterol and Atrovent. (2) Acute exacerbation of chronic bronchitis Is this a current diagnosis for this admission?: Yes Plan: Empiric antibiotics (3) Allergic sinusitis Is this a current diagnosis for this admission?: Yes Plan: Chlorpheniramine, Flonase (4) JENNIE (obstructive sleep apnea) Is this a current diagnosis for this admission?: Yes Plan: BiPAP - Time Time Spent: 30 to 50 Minutes - Inpatient Certification Medical Necessity: Significant Comorbidiites Make Outpatient Treatment Too Risky , Need Close Monitoring Due to Risk of Patient Decompensation
[2018-02-21] MEDS: HEPARIN SOD (PORCINE) 5,000 UNIT/ML 1 ML SYRINGE SUBCUT SCH ×3 (08:14→21:14)
[2018-02-21] MEDS: CHLORPHENIRAMINE MALEATE 4 MG TABLET PO SCH ×2 (10:47→17:51)
[2018-02-21] MEDS: TIOTROPIUM BROMIDE DPI 5 CAP/KIT (18 MCG/CAP) IH SCH (10:47)
[2018-02-21] MEDS: ASPIRIN 81 MG TABLET, ENT COATED PO SCH (10:48)
[2018-02-21] MEDS: GABAPENTIN 300 MG CAPSULE PO SCH (10:48)
[2018-02-21] MEDS: LISINOPRIL 5 MG TABLET PO SCH (10:48)
[2018-02-21] MEDS: FLUTICASONE NASAL SPRAY 50 MCG/SPRY 120 SPRAY/16 GM NASL SCH ×2 (10:51→21:14)
--- NOTE | 2018-02-21 11:25 | Physician Advisory Note ---
Physician Advisor ProgressNote .: Pursuant to the [facility], I have reviewed the medical record for this patient. Physician Advisor Statement: Please consider documenting, if you agree: 1. "Acute on Chronic Hypoxemic Respiratory Failure, evidenced by O2 sat as low a 88% on 4L (baseline need is 3L), with distress, accessory muscle use, & retractions" 2. ? "Possible RLL pneumonia, clinical dx so far, evidenced by SOB, cough w/ sputum, rales, tachypnea, worsened hypoxemia, tachycardia, WBC 13.1, decreased BS Rt base in ED (which can be evidence of consolidation) - suspect CXR negative initially due to intravascular volume depletion (or ...)" (BUN>>Cr, ...) - Any chills/fever? pleuritic CP? 3. Medical necessity: "Pt continues to have recurrent tachypnea as high as 32 today, needing Bipap even when not sleeping (10:24 AM), ..." - please document all reasons pt continues to need hospitalization, & appropriate to change to Inpatient status. THanks! CK Addendum: Needs temps monitoring documented by nursing.
[2018-02-21] MEDS: HYDROCODONE/ACETAMINOPHEN 5-325 MG TABLET PO PRN ×2 (14:11→23:12)
--- NOTE | 2018-02-21 14:25 | PDOC PROGRESS REPORT ---
Subjective Progress Note for:: 02/21/18 Subjective:: The patient is a 72-year-old female with a past medical history of home oxygen dependent COPD, allergic sinusitis, GERD, osteoarthritis, and obstructive sleep apnea who was admitted on 02/20/18 for acute on chronic respiratory failure with hypoxia secondary to a COPD exacerbation and possible right lower lobe pneumonia. The patient is seen on morning rounds while still in the emergency department. She is currently lying in bed on BiPAP and noted to have a resting respiratory rate of 18-24. She does speak in full sentences. She confirms a continued sensation of dyspnea while at rest, wheezing, productive cough. She is fully conversational without pauses for breaths. She states that she is feeling slightly better as from when she arrived to the emergency department. Her primary complaint at this time is her chronic pain and the discomfort of the BiPAP mask. She has no new questions or concerns. Reason For Visit: COPD EXACERBATION,ACUTE ON CHRONIC BRONCHITIS Physical Exam Vital Signs: Temp Pulse Resp BP Pulse Ox 97.8 F 80 21 H 170/80 H 95 02/21/18 12:47 02/21/18 12:47 02/21/18 12:47 02/21/18 12:47 02/21/18 12:47 Intake & Output 02/20/18 02/21/18 02/22/18 06:59 06:59 06:59 Weight 83.915 kg 78.9 kg General appearance: PRESENT: no acute distress, disheveled, obese, well- developed, well-nourished Head exam: PRESENT: atraumatic, normocephalic Eye exam: PRESENT: conjunctiva pink, EOMI, PERRLA. ABSENT: scleral icterus Ear exam: PRESENT: normal external ear exam Mouth exam: PRESENT: moist, tongue midline Neck exam: ABSENT: carotid bruit, JVD, lymphadenopathy, thyromegaly Respiratory exam: PRESENT: decreased breath sounds - Bibasilar, R>L, prolonged expiratory phas, rhonchi, symmetrical, tachypnea - 16 at rest, mid 20s-30s with activity, other - BiPAP. ABSENT: rales Cardiovascular exam: PRESENT: RRR, +S1, +S2. ABSENT: diastolic murmur, rubs, systolic murmur, tachycardia Pulses: PRESENT: normal dorsalis pedis pul Vascular exam: PRESENT: normal capillary refill GI/Abdominal exam: PRESENT: normal bowel sounds, soft. ABSENT: distended, guarding, mass, organolmegaly, rebound, tenderness Rectal exam: PRESENT: deferred Extremities exam: PRESENT: full ROM. ABSENT: calf tenderness, clubbing, pedal edema Neurological exam: PRESENT: alert, awake, oriented to person, oriented to place , oriented to time, oriented to situation, CN II-XII grossly intact. ABSENT: motor sensory deficit Psychiatric exam: PRESENT: anxious, appropriate affect, normal mood. ABSENT: homicidal ideation, suicidal ideation Skin exam: PRESENT: dry, intact, warm. ABSENT: cyanosis, rash Results Laboratory Results: 02/21/18 04:35 02/21/18 04:35 02/21/18 02/21/18 04:35 04:35 WBC 10.7 H RBC 3.70 L Hgb 11.3 L Hct 33.7 L MCV 91 MCH 30.4 MCHC 33.4 RDW 13.8 Plt Count 203 Seg Neutrophils % 92.3 H Lymphocytes % 6.9 L Monocytes % 0.7 L Eosinophils % 0.0 Basophils % 0.1 Absolute Neutrophils 9.9 H Absolute Lymphocytes 0.7 Absolute Monocytes 0.1 Absolute Eosinophils 0.0 Absolute Basophils 0.0 Sodium 138.5 Potassium 4.8 Chloride 100 Carbon Dioxide 26 Anion Gap 13 BUN 22 H Creatinine 0.90 Est GFR ( Amer) > 60 Est GFR (Non-Af Amer) > 60 Glucose 239 H Calcium 9.4 Impressions: Chest X-Ray 02/20/18 21:03 IMPRESSION: NO ACUTE RADIOGRAPHIC FINDING IN THE CHEST. Assessment & Plan - Diagnosis (1) Acute and chronic respiratory failure with hypoxia Is this a current diagnosis for this admission?: Yes Plan: The patient was admitted with acute on chronic respiratory failure with hypoxia evidenced by apnea with a rate in the mid to high 20s, oxygen saturations of 88 % on 4 L/min with a baseline oxygen requirement of 3, acute distress with accessory muscle use and retractions. The patient is admitted to the medical floor on continuous cardiac telemetry. She is provided supplemental oxygen as needed to maintain oxygen saturations greater than 88% BiPAP is ordered for support. Will obtain ABG while on BiPAP. Scheduled and as needed nebulizer treatments are available. (2) COPD exacerbation Is this a current diagnosis for this admission?: Yes Plan: The patient on medication, Spiriva, is continued. Scheduled and as needed nebulizer treatments are provided Supplemental oxygen and BiPAP for respiratory support to maintain oxygen saturations greater than 88%. We will evaluate ABG. We will place patient on prednisone 60 mg p.o. daily Mucinex twice daily Incentive spirometry and flutter valve to bedside. Remaining plan as above. (3) Right lower lobe pneumonia Is this a current diagnosis for this admission?: Yes Plan: Clinical diagnosis of right lower lobe pneumonia as evidenced by shortness of breath, cough with sputum, rales, tachypnea, worsening hypoxia, tachycardia, WBCs of 13.1, and decreased breath sounds to the right base. Chest x-ray in the ED as read by the radiologist shows no acute cardiopulmonary findings. However, when personally reviewed I do question whether or not there may be a right basilar consolidation. The patient is also noted to have decreased breath sounds in this same field. As her pending. The patient is empirically placed on IV Levaquin. Remaining plan as above. (4) Allergic sinusitis Is this a current diagnosis for this admission?: Yes Plan: Flonase and Chlorpheniramine. (5) Diabetes mellitus type 2 in obese Is this a current diagnosis for this admission?: Yes Plan: Holding metformin while inpatient. Consistent carb diet with Accu-Cheks before meals and at bedtime. Humalog for sliding scale coverage. (6) JENNIE (obstructive sleep apnea) Is this a current diagnosis for this admission?: Yes Plan: BiPAP nightly and as needed. - Time Time Spent with patient: 25-34 minutes Medications reviewed and adjusted accordingly: Yes - Inpatient Certification Based on my medical assessment, after consideration of the patient's comorbidities, presenting symptoms, or acuity I expect that the services needed warrant INPATIENT care.: Yes I certify that my determination is in accordance with my understanding of Medicare's requirements for reasonable and necessary INPATIENT services [42 CFR 412.3e].: Yes Medical Necessity: Need Close Monitoring Due to Risk of Patient Decompensation, Need For Continuous Telemetry Monitoring, Need for Nebulizer Therapy and Monitoring of Response
[2018-02-21 16:27] LABS: ARTERIAL BLOOD FIO2 3L; ARTERIAL BLOOD HCO3 27.7 mmol/L (20-26); ARTERIAL BLOOD O2 SATURATION 95.8 % (94-98); ARTERIAL BLOOD PCO2 43.1 mmHg (35-45); ARTERIAL BLOOD PH 7.43 (7.35-7.45); ARTERIAL BLOOD PO2 77.9 mmHg (80-100)
[2018-02-21] MEDS: GUAIFENESIN 600 MG TABLET.SA PO SCH (21:14)
[2018-02-22] MEDS: IPRATROPIUM/ALBUTEROL 0.5-2.5 MG/3 ML AMPUL NEB SCH ×4 (01:43→19:54)
[2018-02-22] MEDS: CHLORPHENIRAMINE MALEATE 4 MG TABLET PO SCH ×3 (02:09→17:00)
[2018-02-22] MEDS: HEPARIN SOD (PORCINE) 5,000 UNIT/ML 1 ML SYRINGE SUBCUT SCH ×3 (05:14→21:25)
[2018-02-22 05:42] LABS: HEMATOCRIT 31.5 % (36.0-47.0); HEMOGLOBIN 10.3 g/dL (12.0-15.5); MEAN CORPUSCULAR HEMOGLOBIN 30.1 pg (27.0-33.4); MEAN CORPUSCULAR HGB CONC 32.7 g/dL (32.0-36.0); MEAN CORPUSCULAR VOLUME 92 fl (80-97); PLATELET COUNT 185 10^3/uL (150-450); RED BLOOD COUNT 3.43 10^6/uL (3.72-5.28); RED CELL DISTRIBUTION WIDTH 13.9 % (11.5-14.0); WHITE BLOOD COUNT 13.9 10^3/uL (4.0-10.5)
[2018-02-22 05:58] LABS: ANION GAP 6 (5-19); BLOOD UREA NITROGEN 27 mg/dL (7-20); CALCIUM 9.3 mg/dL (8.4-10.2); CARBON DIOXIDE 30 mmol/L (22-30); CHLORIDE 101 mmol/L (98-107); GLUCOSE 109 mg/dL (75-110); POTASSIUM 4.4 mmol/L (3.6-5.0); SODIUM 136.6 mmol/L (137-145)
[2018-02-22] MEDS: LEVOFLOXACIN 750 MG/D5W RTU 750 MG/150 ML RTUPB IV SCH (08:51)
[2018-02-22] MEDS: LISINOPRIL 5 MG TABLET PO SCH (10:00)
[2018-02-22] MEDS: FLUTICASONE NASAL SPRAY 50 MCG/SPRY 120 SPRAY/16 GM NASL SCH ×2 (10:00→21:25)
[2018-02-22] MEDS: GABAPENTIN 300 MG CAPSULE PO SCH (10:01)
[2018-02-22] MEDS: GUAIFENESIN 600 MG TABLET.SA PO SCH ×2 (10:01→21:26)
[2018-02-22] MEDS: ASPIRIN 81 MG TABLET, ENT COATED PO SCH (10:01)
[2018-02-22] MEDS: PREDNISONE 20 MG TABLET PO SCH (10:01)
[2018-02-22] MEDS: TIOTROPIUM BROMIDE DPI 5 CAP/KIT (18 MCG/CAP) IH SCH (11:38)
[2018-02-22] MEDS: HYDROCODONE/ACETAMINOPHEN 5-325 MG TABLET PO PRN ×2 (12:01→21:25)
[2018-02-22] MEDS ORDERED: RANITIDINE HCL SYRUP 150 MG/10 ML UDCUP PO ONE (14:00)
[2018-02-22] MEDS: RANITIDINE HCL SYRUP 150 MG/10 ML UDCUP PO SCH ×2 (16:58→21:26)
[2018-02-22] MEDS: INSULIN LISPRO 100 UNIT/ML 3 ML VIAL SUBCUT PRN (17:01)
--- NOTE | 2018-02-22 18:13 | PDOC PROGRESS REPORT ---
Subjective Progress Note for:: 02/22/18 Subjective:: GAVI PEDRO is a 72 year old female with a PMH of home oxygen dependent COPD, allergic sinusitis, GERD, osteoarthritis, and obstructive sleep apnea who was admitted on 02/20/2018 for acute on, chronic respiratory failure with hypoxia secondary to COPD exacerbation and possible left lower lobe pneumonia. Patient is seen this morning on rounds. She is resting in bed on supplemental oxygen 2 L/min. The patient is able speak in full sentences, she is fully conversational without pauses for breath. She states she does not feel short of breath, denies chest pain, endorses productive cough and wheezing. Reason For Visit: COPD EXACERBATION,RIGHT LOWER LOBE PNEUMONIA Physical Exam Vital Signs: Temp Pulse Resp BP Pulse Ox 98.4 F 76 22 H 124/49 L 94 02/22/18 15:04 02/22/18 15:04 02/22/18 15:04 02/22/18 15:04 02/22/18 15:37 Intake & Output 02/21/18 02/22/18 02/23/18 06:59 06:59 06:59 Intake Total 720 Output Total 500 Balance 220 Weight 80.3 kg General appearance: PRESENT: no acute distress Eye exam: PRESENT: PERRLA Mouth exam: PRESENT: moist Neck exam: PRESENT: full ROM Respiratory exam: PRESENT: symmetrical, wheezes - Right lower lobe Cardiovascular exam: PRESENT: +S1, +S2 Pulses: PRESENT: normal radial pulses, normal dorsalis pedis pul GI/Abdominal exam: PRESENT: normal bowel sounds, soft. ABSENT: tenderness Rectal exam: PRESENT: deferred Extremities exam: PRESENT: full ROM Musculoskeletal exam: PRESENT: ambulatory, full ROM Neurological exam: PRESENT: alert, awake, oriented to person, oriented to place , oriented to time, oriented to situation Psychiatric exam: PRESENT: appropriate affect Skin exam: PRESENT: normal color Results Laboratory Results: 02/22/18 04:47 02/22/18 04:47 02/22/18 02/22/18 04:47 04:47 WBC 13.9 H RBC 3.43 L Hgb 10.3 L Hct 31.5 L MCV 92 MCH 30.1 MCHC 32.7 RDW 13.9 Plt Count 185 Sodium 136.6 L Potassium 4.4 Chloride 101 Carbon Dioxide 30 Anion Gap 6 BUN 27 H Creatinine 1.01 Est GFR ( Amer) > 60 Est GFR (Non-Af Amer) 54 L Glucose 109 Calcium 9.3 Impressions: Chest X-Ray 02/20/18 21:03 IMPRESSION: NO ACUTE RADIOGRAPHIC FINDING IN THE CHEST. Status: Imported from PACS Assessment & Plan - Diagnosis (1) Acute and chronic respiratory failure with hypoxia Is this a current diagnosis for this admission?: Yes Plan: Acute on chronic respiratory failure with hypoxia evidenced by apnea with rate in the mid to high 20s, oxygen saturations 88% on 4 L/min which is above baseline oxygen requirement of 3 L/min. Acute distress with accessory muscle use and retractions. Admit to medical floor on continuous cardiac telemetry. Supplemental oxygen as needed to maintain SPO2 greater than 88% BiPAP as needed. ABG otherwise unremarkable -no need to repeat unless respiratory status changes. Scheduled and as needed nebulizer treatments (2) COPD exacerbation Is this a current diagnosis for this admission?: Yes Plan: Continue Spiriva Scheduled and as needed nebulizer treatments Supplemental oxygen and BiPAP for respiratory support to maintain SPO2 > 88% Continue prednisone 60 mg p.o. daily, if wheezing improves consider tapering steroids tomorrow. Mucinex twice daily Incentive spirometry and flutter valve at bedside Remaining plan as above (3) Right lower lobe pneumonia Is this a current diagnosis for this admission?: Yes Plan: Clinical diagnosis right upper lobe pneumonia as evidenced by shortness of breath, cough with sputum, rales, tachypnea, worsening hypoxia, tachycardia, WBC 13.1, and decreased breath sounds to the right base. CXR in the ED was read by radiology showing no acute cardiopulmonary findings. However, based on patient's symptoms is questionable whether or not there may be a right basilar consolidation. Patient is also noted to have decreased breath sounds in that same field. Empirically placed on IV Levaquin. (4) Allergic sinusitis Is this a current diagnosis for this admission?: Yes Plan: Flonase and chlorpheniramine (5) Diabetes mellitus type 2 in obese Is this a current diagnosis for this admission?: Yes Plan: Hold metformin. Consistent carb diet with Accu-Cheks before meals at bedtime Humalog for sliding scale coverage (6) JENNIE (obstructive sleep apnea) Is this a current diagnosis for this admission?: Yes Plan: CPAP nightly as needed - Time Time Spent with patient: 15-24 minutes Anticipated discharge: Home Within: within 48 hours - Inpatient Certification Based on my medical assessment, after consideration of the patient's comorbidities, presenting symptoms, or acuity I expect that the services needed warrant INPATIENT care.: Yes I certify that my determination is in accordance with my understanding of Medicare's requirements for reasonable and necessary INPATIENT services [42 CFR 412.3e].: Yes Medical Necessity: Need for IV Antibiotics, Risk of Complication if Not Cared For in Hospital - Plan Summary Plan Summary: The plan is to discharge the patient home within 48 hours
[2018-02-22] MEDS: ACETAMINOPHEN 325 MG TABLET PO PRN (20:24)
[2018-02-23] MEDS: CHLORPHENIRAMINE MALEATE 4 MG TABLET PO SCH ×2 (01:33→10:24)
[2018-02-23] MEDS: IPRATROPIUM/ALBUTEROL 0.5-2.5 MG/3 ML AMPUL NEB SCH ×2 (02:02→08:20)
[2018-02-23] MEDS: HEPARIN SOD (PORCINE) 5,000 UNIT/ML 1 ML SYRINGE SUBCUT SCH (06:28)
[2018-02-23 08:50] LABS: HEMATOCRIT 35.7 % (36.0-47.0); HEMOGLOBIN 11.7 g/dL (12.0-15.5); MEAN CORPUSCULAR HEMOGLOBIN 29.9 pg (27.0-33.4); MEAN CORPUSCULAR HGB CONC 32.8 g/dL (32.0-36.0); MEAN CORPUSCULAR VOLUME 91 fl (80-97); PLATELET COUNT 250 10^3/uL (150-450); RED BLOOD COUNT 3.92 10^6/uL (3.72-5.28); WHITE BLOOD COUNT 15.5 10^3/uL (4.0-10.5)
[2018-02-23 09:02] LABS: ANION GAP 8 (5-19); BLOOD UREA NITROGEN 34 mg/dL (7-20); CALCIUM 9.9 mg/dL (8.4-10.2); CARBON DIOXIDE 30 mmol/L (22-30); CHLORIDE 99 mmol/L (98-107); GLUCOSE 99 mg/dL (75-110); POTASSIUM 4.5 mmol/L (3.6-5.0); SODIUM 136.5 mmol/L (137-145)
[2018-02-23] MEDS: GUAIFENESIN 600 MG TABLET.SA PO SCH (10:22)
[2018-02-23] MEDS: LISINOPRIL 5 MG TABLET PO SCH (10:22)
[2018-02-23] MEDS: ASPIRIN 81 MG TABLET, ENT COATED PO SCH (10:23)
[2018-02-23] MEDS: PREDNISONE 20 MG TABLET PO SCH (10:23)
[2018-02-23] MEDS: GABAPENTIN 300 MG CAPSULE PO SCH (10:23)
[2018-02-23] MEDS: RANITIDINE HCL SYRUP 150 MG/10 ML UDCUP PO SCH ×2 (10:24→10:31)
[2018-02-23] MEDS: FLUTICASONE NASAL SPRAY 50 MCG/SPRY 120 SPRAY/16 GM NASL SCH (10:24)
[2018-02-23] MEDS: TIOTROPIUM BROMIDE DPI 5 CAP/KIT (18 MCG/CAP) IH SCH (10:24)
[2018-02-23] MEDS: LEVOFLOXACIN 750 MG/D5W RTU 750 MG/150 ML RTUPB IV SCH (10:30)
[2018-02-23 13:00] VITALS: BP 170/80
[2018-02-24] MEDS ORDERED: LEVOFLOXACIN 750 MG TABLET PO SCH (08:00)
[2018-02-24] MEDS ORDERED: CETIRIZINE 10 MG TABLET PO SCH (10:00)
--- NOTE | 2018-03-21 17:07 | PDOC DISCHARGE SUMMARY ---
General - Admit/Disc Date/PCP Admission Date/Primary Care Provider: 02/21/18 14:19 KYLE NIETO MD Discharge Date: 02/23/18 - Discharge Diagnosis (1) Acute and chronic respiratory failure with hypoxia Is this a current diagnosis for this admission?: Yes Summary: Acute on chronic respiratory failure with hypoxia evidenced by apnea with rate in the mid to high 20s, oxygen saturations 88% on 4 L/min which is above baseline oxygen requirement of 3 L/min. Acute distress with accessory muscle use and retractions. Admit to medical floor on continuous cardiac telemetry. Supplemental oxygen as needed to maintain SPO2 greater than 88% BiPAP as needed. ABG otherwise unremarkable Scheduled and as needed nebulizer treatments (2) COPD exacerbation Is this a current diagnosis for this admission?: Yes Summary: Continue Spiriva post discharge Scheduled and as needed nebulizer treatments post discharge Supplemental oxygen and BiPAP for respiratory support to maintain SPO2 > 88% prednisone tapering post discharge Mucinex twice daily post discharge x 1 week Incentive spirometry and flutter valve Remaining plan as above (3) Right lower lobe pneumonia Is this a current diagnosis for this admission?: Yes Summary: Clinical diagnosis right upper lobe pneumonia as evidenced by shortness of breath, cough with sputum, rales, tachypnea, worsening hypoxia, tachycardia, WBC 13.1, and decreased breath sounds to the right base. CXR in the ED was read by radiology showing no acute cardiopulmonary findings. However, based on patient's symptoms is questionable whether or not there may be a right basilar consolidation. Patient is also noted to have decreased breath sounds in that same field. Started on IV Levaquin and continued post discharge (4) Allergic sinusitis Is this a current diagnosis for this admission?: Yes Summary: Flonase and chlorpheniramine (5) Diabetes mellitus type 2 in obese Is this a current diagnosis for this admission?: Yes Summary: Resume metformin post-discharge Consistent carb diet with Accu-Cheks before meals at bedtime while inpatient Humalog for sliding scale coverage while inpatient (6) JENNIE (obstructive sleep apnea) Is this a current diagnosis for this admission?: Yes Summary: Encourage the patient to use CPAP at night - Additional Information Resuscitation Status: Full Code Discharge Diet: As Tolerated Discharge Activity: Activity As Tolerated, Balance Activity w/Rest, Energy Conservation, Slowly Increase Activity Home Medications: Aspirin [Aspirin EC] 81 mg PO DAILY 03/04/18 Cetirizine HCl [Zyrtec 10 mg Tablet] 1 tab PO DAILYP PRN 03/04/18 Fluticasone/Salmeterol [Advair 250-50 Diskus 28 dose] 1 inh IH DAILY 03/04/18 Gabapentin [Neurontin 400 mg Capsule] 400 mg PO Q12 03/04/18 Hydrocodone/Acetaminophen [Tolar 5-325 Tablet] 1 each PO BIDP PRN 03/04/18 Lisinopril [Prinivil 5 mg Tablet] 5 mg PO DAILY 03/04/18 Metformin HCl [Glucophage 500 mg Tablet] 500 mg PO BIDBS 03/04/18 Omeprazole 40 mg PO Q6AM 03/04/18 Sucralfate [Carafate 1 gm Tablet] 1 gm PO ACHS 03/04/18 Tiotropium [place] [Spiriva Handihaler 18 mcg/dose (30 Dose)] 1 cap IH DAILY Aspirin [Ecotrin 81 mg EC Tablet] 81 mg PO DAILY tabec 03/09/18 Carvedilol [Coreg 3.125 mg Tablet] 3.125 mg PO Q12 30 Days #60 tablet 03/09/18 Cefuroxime Axetil [Ceftin 500 mg Tablet] 500 mg PO Q12H #6 tablet 03/09/18 Doxycycline Hyclate [Vibramycin Inj 100 mg Vial] 100 mg IV Q12 3 Days #6 vial Gabapentin [Neurontin 400 mg Capsule] 400 mg PO Q12 capsule 03/09/18 Hydrocodone/Acetaminophen [Tolar 5-325 mg Tablet] 1 tab PO Q12HP PRN tablet Lisinopril [Prinivil 5 mg Tablet] 5 mg PO DAILY tablet 03/09/18 Prednisone 20 mg PO DAILY #16 tablet 03/09/18 History of Present Illness History of Present Illness: GAVI PEDRO is a 72 year old female with a past medical history of home oxygen dependent COPD, allergic sinusitis, GERD, osteoarthritis and sleep apnea. Patient presents with approximately a 5 day complaint of rhinorrhea, postnasal drip with abrupt worsening approximately 5 hours prior to presentation. She admits minimal productive cough of yellow sputum, no chest pain or palpitations. In the emergency room she is found to have an unremarkable workup with exception to oxygen saturations of 80% on 2 L. She receives Solu- Medrol and multiple nebulizer treatments with partial improvement and referred to the hospitalist for admission. Patient admits noncompliance with CPAP. Denies recent change in medications. Hospital Course Hospital Course: see above Physical Exam Vital Signs: Temp Pulse Resp BP Pulse Ox 98.1 F 64 18 170/80 H 98 02/23/18 12:56 02/23/18 12:56 02/23/18 12:56 02/23/18 12:56 02/23/18 12:56 Results Laboratory Results: 02/23/18 08:27 02/23/18 08:27 Impressions: Chest X-Ray 02/20/18 21:03 IMPRESSION: NO ACUTE RADIOGRAPHIC FINDING IN THE CHEST. Qualifiers - * PATIENT BEING DISCHARGED WITH ANY OF THE FOLLOWING DIAGNOSIS: No
== END 2018-02-23 13:23 | disposition home or self-care (01) | DRG 189 ==
LOC: ER 20:24 → EH 22:34 → 4W 02-21 11:41 → OBSVTOIN 02-21 14:19
PROVIDERS: ADMIT Internal Medicine; ATTEND Internal Medicine
PROC: 5A09457 Assistance with Respiratory Ventilation, 24-96 Consecutive Hours, Continuous Positive Airway Pressure (ICD-10-PCS; principal; 2018-02-21)
DX: J96.21 Acute and chronic respiratory failure with hypoxia (principal); J18.9 Pneumonia, unspecified organism; J44.1 Chronic obstructive pulmonary disease with (acute) exacerbation; J44.0 Chronic obstructive pulmonary disease with (acute) lower respiratory infection; J20.9 Acute bronchitis, unspecified; Z99.81 Dependence on supplemental oxygen; K21.9 Gastro-esophageal reflux disease without esophagitis; J30.9 Allergic rhinitis, unspecified; M19.90 Unspecified osteoarthritis, unspecified site; I25.10 Atherosclerotic heart disease of native coronary artery without angina pectoris; I11.0 Hypertensive heart disease with heart failure; E11.9 Type 2 diabetes mellitus without complications; G47.33 Obstructive sleep apnea (adult) (pediatric); I50.9 Heart failure, unspecified; E66.9 Obesity, unspecified; Z86.718 Personal history of other venous thrombosis and embolism; Z90.49 Acquired absence of other specified parts of digestive tract; Z90.710 Acquired absence of both cervix and uterus; Z87.891 Personal history of nicotine dependence; Z79.82 Long term (current) use of aspirin; Z79.899 Other long term (current) drug therapy; Z79.84 Long term (current) use of oral hypoglycemic drugs; Z91.19 Patient's noncompliance with other medical treatment and regimen
CPT/HCPCS: 36415; 36600; 71045; 80048; 82803; 82962; 83735; 84100; 85025; 85027; 87040; 93005; 93010; 94640; 94660; 94667; 94668; 96361; 96365; 96372; 96375; 99285; G0378; J0360; J1644; J1815; J1956; J3490; J7030; J7512; J7620

== ENCOUNTER 2018-03-03 23:11 | Inpatient (IN) | payer MEDICARE ==
[2018-03-03 23:51] LABS: ABSOLUTE BASOPHILS # (AUTO) 0.1 10^3/uL (0.0-0.2); ABSOLUTE EOSINOPHILS # (AUTO) 0.2 10^3/uL (0.0-0.6); ABSOLUTE LYMPHOCYTES (AUTO) 3.3 10^3/uL (0.5-4.7); ABSOLUTE MONOCYTES (AUTO) 1.3 10^3/uL (0.1-1.4); BASOPHILS % (AUTO) 0.3 % (0-2); EOSINOPHILS % (AUTO) 0.9 % (0-6); HEMOGLOBIN 11.6 g/dL (12.0-15.5); LYMPHOCYTES % (AUTO) 16.8 % (13-45); MEAN CORPUSCULAR HEMOGLOBIN 30.1 pg (27.0-33.4); MEAN CORPUSCULAR HGB CONC 33.1 g/dL (32.0-36.0); MEAN CORPUSCULAR VOLUME 91 fl (80-97); MONOCYTES % (AUTO) 6.7 % (3-13); PLATELET COUNT 224 10^3/uL (150-450); RED BLOOD COUNT 3.85 10^6/uL (3.72-5.28); RED CELL DISTRIBUTION WIDTH 14.2 % (11.5-14.0); SEGMENTED NEUTROPHILS % (AUTO) 75.3 % (42-78); TOTAL CELLS COUNTED % (AUTO) 100 %; WHITE BLOOD COUNT 19.9 10^3/uL (4.0-10.5)
[2018-03-03 23:58] LABS: ALANINE AMINOTRANSFERASE 29 U/L (9-52); ALBUMIN 3.6 g/dL (3.5-5.0); ALKALINE PHOSPHATASE 117 U/L (38-126); ANION GAP 10 (5-19); ASPARTATE AMINO TRANSFERASE 20 U/L (14-36); BILIRUBIN,DIRECT 0.1 mg/dL (0.0-0.4); BILIRUBIN,TOTAL 0.2 mg/dL (0.2-1.3); BLOOD UREA NITROGEN 29 mg/dL (7-20); CALCIUM 10.2 mg/dL (8.4-10.2); CARBON DIOXIDE 27 mmol/L (22-30); CHLORIDE 104 mmol/L (98-107); CREATINE KINASE 40 U/L (30-135); GLUCOSE 143 mg/dL (75-110); POTASSIUM 4.7 mmol/L (3.6-5.0); TOTAL PROTEIN 6.2 g/dL (6.3-8.2)
[2018-03-04 00:08] LABS: CREATINE KINASE MB 1.43 ng/mL (<4.55)
[2018-03-04 00:09] LABS: TROPONIN I < 0.012 ng/mL
--- NOTE | 2018-03-04 00:12 | ER Document Report ---
ED General - General Mode of Arrival: Medic Information source: Patient TRAVEL OUTSIDE OF THE [place] IN LAST 30 DAYS: No <QUINTEN COON - Last Filed: 03/04/18 02:37> <JORDY DIAMOND - Last Filed: 03/04/18 06:57> - General Chief Complaint: Breathing Difficulty Stated Complaint: DIFFICULTY BREATHING Time Seen by Provider: 03/03/18 23:34 Notes: Patient is a 72 year old female with a history of Diabetes, HTN, CHF and COPD presents to the emergency department via EMS complaining of chest pain and shortness of breath onset approximately 2 hours ago with associated symptoms of vomiting x1 and diaphoresis. Patient describes her chest pain as a chest pressure further stating her trouble breathing is exacerbated by chest pain. At bedside patient states she is feeling better after receiving a breathing treatment from EMS. Patient states she is normally on 3 L of nasal cannula at home. (QUINTEN COON ) - Related Data Allergies/Adverse Reactions: ibuprofen [From Motrin] Allergy (Intermediate, Verified 10/12/17 10:13) RASH/UTICARTIA Past Medical History - General Information source: Patient - Social History Smoking Status: Current Every Day Smoker Cigarette use (# per day): Yes Chew tobacco use (# tins/day): No Smoking Education Provided: No Frequency of alcohol use: None Family History: Hypertension Patient has suicidal ideation: No Patient has homicidal ideation: No - Past Medical History Cardiac Medical History: Reports: Hx Congestive Heart Failure, Hx Coronary Artery Disease, Hx DVT, Hx Hypertension Pulmonary Medical History: Reports: Hx Asthma, Hx COPD Endocrine Medical History: Reports: Hx Diabetes Mellitus Type 2 Renal/ Medical History: Reports: Hx Renal Insufficiency GI Medical History: Reports: Hx Diverticulitis, Hx Gastroesophageal Reflux Disease Musculoskeltal Medical History: Reports Hx Arthritis Traumatic Medical History: Reports: Hx Fractures - several broken ribs Past Surgical History: Reports: Hx Appendectomy, Hx Cholecystectomy, Hx Herniorrhaphy, Hx Hysterectomy, Hx Orthopedic Surgery - rotator cuff - Immunizations Immunizations up to date: Yes Hx Diphtheria, Pertussis, Tetanus Vaccination: No Hx Pneumococcal Vaccination: 08/30/14 <QUINTEN COON - Last Filed: 03/04/18 02:37> Review of Systems - Review of Systems Constitutional: See HPI, Diaphoresis EENT: No symptoms reported Cardiovascular: No symptoms reported Respiratory: See HPI Gastrointestinal: See HPI, Vomiting Genitourinary: No symptoms reported Female Genitourinary: No symptoms reported Musculoskeletal: No symptoms reported Skin: No symptoms reported Hematologic/Lymphatic: No symptoms reported Neurological/Psychological: No symptoms reported -: Yes All other systems reviewed and negative <QUINTEN COON - Last Filed: 03/04/18 02:37> Physical Exam <JAYMIELAURELLEONIE - Last Filed: 03/04/18 02:37> <JORYD DIAMOND - Last Filed: 03/04/18 06:57> - Vital signs Vitals: Pulse Pulse Ox 85 98 03/03/18 23:17 03/03/18 23:17 - Notes Notes: GENERAL: Alert, interacts well. No acute distress. Appears mildly short of breath. HEAD: Normocephalic, atraumatic. EYES: Pupils equal, round, and reactive to light. Extraocular movements intact. ENT: Oral mucosa moist, tongue midline. NECK: Full range of motion. Supple. Trachea midline. LUNGS: Rales at base bilaterally. Trace expiratory wheezes. Appears mildly short of breath. HEART: Regular rate and rhythm. No murmurs, gallops, or rubs. ABDOMEN: Soft, non-tender. Non-distended. Bowel sounds present in all 4 quadrants. EXTREMITIES: Moves all 4 extremities spontaneously. Trace pitting edema bilaterally. No radial and dorsalis pedis pulses 2/4 bilaterally. No cyanosis. NEUROLOGICAL: Alert and oriented x3. Normal speech. PSYCH: Normal affect, normal mood. SKIN: Warm, dry. No rashes or lesions noted. (JAYMIELAURELLEONIE) Course - Laboratory Result Diagrams: 03/03/18 23:25 03/03/18 23:25 <JAYMIE,LAURELLEONIE - Last Filed: 03/04/18 02:37> - Laboratory Result Diagrams: 03/03/18 23:25 03/03/18 23:25 <JORDY DIAMOND - Last Filed: 03/04/18 06:57> - Re-evaluation Re-evalutation: 03/04/18 02:34 Shortness of breath resolved with breathing treatments, CBC shows increasing leukocytosis of 19.9, anemia with hemoglobin of 11.6, CMP shows acute renal failure with a BUN of 29 creatinine 1.42, the BUN is close to baseline creatinine is elevated, cardiac enzymes negative, proBNP mildly elevated 533, chest x-ray shows new left basilar infiltrate. EKG is nonischemic. I am concerned by the patient's chest pain associated with diaphoresis nausea and shortness of breath, this is also possibly caused by the new pneumonia on chest x-ray. Discussed patient with Dr. Bartlett who will admit patient for pneumonia as well as chest pain rule out. (JORDY DIAMOND) - Vital Signs Vital signs: Temp Pulse Resp BP Pulse Ox 98.6 F 73 20 135/66 H 97 03/04/18 04:19 03/04/18 04:19 03/04/18 04:19 03/04/18 04:19 03/04/18 04:19 - Laboratory Laboratory results interpreted by me: 03/03/18 03/03/18 23:25 23:25 WBC 19.9 H Hgb 11.6 L Hct 35.0 L RDW 14.2 H Absolute Neutrophils 15.0 H BUN 29 H Creatinine 1.42 H Est GFR ( Amer) 44 L Est GFR (Non-Af Amer) 36 L Glucose 143 H Total Protein 6.2 L - EKG Interpretation by Me Additional EKG results interpreted by me: 03/04/18 02:35 EKG shows sinus rhythm at a rate of 86, left bundle branch block, no ST segment elevations or depressions, T-wave inversions consistent with left bundle branch block, no significant change from prior EKG per my interpretation. (JORDY DIAMOND ) Discharge <QUINTEN COON - Last Filed: 03/04/18 02:37> - Discharge Admitting Provider: Gema Bartlett Unit Admitted: Telemetry <JORDY DIAMOND - Last Filed: 03/04/18 06:57> - Discharge Clinical Impression: Chest pain, rule out acute myocardial infarction Left lower lobe pneumonia Qualifiers: Pneumonia type: due to unspecified organism Qualified Code(s): J18.1 - Lobar pneumonia, unspecified organism Condition: Fair Disposition: ADMITTED INPATIENT Scribe Attestation: 03/04/18 06:57 I personally performed the services described in the documentation, reviewed and edited the documentation which was dictated to the scribe in my presence, and it accurately records my words and actions. (JORDY DIAMOND) Scribe Documentation - Scribe Written by Jeanie:: Jeanie Burr, 03/04/2018 00:25 acting as scribe for :: Roseanne <QUINTEN COON - Last Filed: 03/04/18 02:37>
[2018-03-04 00:18] LABS: NT PRO BNP 533 pg/mL (5-900)
[2018-03-04] MEDS ORDERED: FUROSEMIDE INJ/PF 20 MG/2 ML SDV IV ONE (00:26)
[2018-03-04] MEDS ORDERED: ALBUTEROL SULFATE 0.083% NEB 2.5 MG/3 ML AMPUL NEB ONE (00:26)
--- NOTE | 2018-03-04 02:01 | RADIOLOGY REPORT (SQ) ---
EXAM DESCRIPTION: CHEST SINGLE VIEW CLINICAL HISTORY: 72 years Female, DIFFICULTY BREATHING COMPARISON: February 20, 2018 NUMBER OF VIEWS/TECHNIQUE: 1/AP LIMITATIONS: None. FINDINGS: Small left basilar pneumonia or atelectasis new compared with prior exam from February 20, 2018. Prominent interstitium. Normal cardiac silhouette. Intact bony thorax. IMPRESSION: New small left basilar pneumonia-atelectasis.
[2018-03-04] MEDS ORDERED: HYDRALAZINE HCL INJ/PF 20 MG/1 ML SDV IV PRN (02:33)
[2018-03-04] MEDS ORDERED: ASPIRIN 325 MG TABLET PO ONE (02:34)
[2018-03-04] MEDS ORDERED: VANCOMYCIN HCL 1,000 MG in DEXTROSE 5%-WATER 250 ML IV ONE (02:35)
[2018-03-04] MEDS ORDERED: IPRATROPIUM/ALBUTEROL 0.5-2.5 MG/3 ML AMPUL NEB PRN (02:35)
[2018-03-04] MEDS ORDERED: CEFEPIME 2 GM/D5W RTU 50 ML IV SCH (02:45)
[2018-03-04] MEDS ORDERED: VANCOMYCIN HCL 0 MG in DEXTROSE 5%-WATER 250 ML IV NR (02:45)
[2018-03-04] MEDS ORDERED: CHLORPHENIRAMINE MALEATE 4 MG TABLET PO ONE (03:00)
[2018-03-04] MEDS ORDERED: LACTULOSE SYRUP 20 GM/30 ML UDCUP PO ONE (03:00)
[2018-03-04] MEDS: NORMAL SALINE 1000 ML 1,000 ML IV SCH ×2 (03:20→21:26)
[2018-03-04] MEDS ORDERED: CEFEPIME 2 GM/D5W RTU 2 GM/50 ML RTUPB IV ONE (03:30)
--- NOTE | 2018-03-04 04:45 | PDOC H&P ---
History of Present Illness Admission Date/PCP: 03/04/18 02:48 KYLE NIETO MD Patient complains of: Shortness of breath, cough and sharp chest pain History of Present Illness: GAVI PEDRO is a 72 year old female with a past medical history of left bundle branch block, home oxygen dependent COPD, allergic sinusitis, GERD, osteoarthritis, diabetes and obstructive sleep apnea with noncompliance. Patient was discharged from acute care hospitalization 9 days ago recovering from COPD exacerbation with pneumonia until 24 hours ago noting a return of shortness of breath, productive cough and left-sided pleuritic chest pain. In the emergency room she is found to have a new left-sided infiltrate, leukocytosis of 20,000 and acute renal failure. She receives treatment with albuterol and Atrovent and referred to the hospitalist for admission. Past Medical History Cardiac Medical History: Reports: Congestive Heart Failure, Coronary Artery Disease, DVT, Hypertension Denies: Myocardial Infarction, Heart Murmur Pulmonary Medical History: Reports: Asthma, Chronic Obstructive Pulmonary Disease (COPD) Denies: Respiratory Failure, Sleep Apnea, Tuberculosis Neurological Medical History: Denies: Seizures Endocrine Medical History: Reports: Diabetes Mellitus Type 2 GI Medical History: Reports: Diverticulitis, Gastroesophageal Reflux Disease Denies: Hepatitis, Hiatal Hernia Musculoskeltal Medical History: Reports: Arthritis Psychiatric Medical History: Denies: Depression Hematology: Reports: Anemia - TAKE IRON SOMETIMES Denies: Hemophilia, Sickle Cell Disease Past Surgical History Past Surgical History: Reports: Appendectomy, Cholecystectomy, Herniorrhaphy, Hysterectomy, Orthopedic Surgery - rotator cuff Denies: Amputation, Mastectomy, Pacemaker Social History Information Source: Patient Lives with: Alone Smoking Status: Current Every Day Smoker Frequency of Alcohol Use: None Hx Recreational Drug Use: No Drugs: None Hx Prescription Drug Abuse: No - Advance Directive Resuscitation Status: Full Code Family History Family History: Hypertension Parental Family History Reviewed: Yes Children Family History Reviewed: Yes Sibling(s) Family History Reviewed.: Yes Medication/Allergy Home Medications: Tiotropium Snook [Spiriva Handihaler 18 mcg/dose (30 Dose)] 1 cap IH DAILY # 30 cap.w.dev 11/15/15 Aspirin [Aspirin EC] 81 mg PO DAILY 11/07/16 Lisinopril 5 mg PO DAILY 11/07/16 Hydrocodone/Acetaminophen [Hydrocodone-Acetamin 5-325 mg] 1 each PO Q12HP PRN Gabapentin [Neurontin 400 mg Capsule] 400 mg PO Q12 02/21/18 Metformin HCl [Glucophage 500 mg Tablet] 500 mg PO Q12 02/21/18 Allergies/Adverse Reactions: ibuprofen [From Motrin] Allergy (Intermediate, Verified 10/12/17 10:13) RASH/UTICARTIA Review of Systems Constitutional: PRESENT: as per HPI, chills, fatigue, fever(s), weakness. ABSENT: headache(s), night sweats Eyes: ABSENT: visual disturbances Ears: ABSENT: hearing changes Nose, Mouth, and Throat: ABSENT: as per HPI, headache(s), mouth pain, sore throat, vertigo Cardiovascular: ABSENT: chest pain, dyspnea on exertion, edema, orthropnea, palpitations Respiratory: PRESENT: as per HPI, cough, dyspnea, sputum, other - Sharp left- sided chest pain reproduced with deep breathing and cough. ABSENT: hemoptysis Gastrointestinal: ABSENT: abdominal pain, constipation, diarrhea, hematemesis, hematochezia, nausea, vomiting Genitourinary: ABSENT: dysuria, hematuria Musculoskeletal: ABSENT: joint swelling Integumentary: ABSENT: rash, wounds Neurological: ABSENT: abnormal gait, abnormal speech, confusion, dizziness, focal weakness, syncope Psychiatric: ABSENT: anxiety, depression, homidical ideation, suicidal ideation Hematologic/Lymphatic: ABSENT: easy bleeding, easy bruising Physical Exam Vital Signs: Temp Pulse Resp BP Pulse Ox 85 20 128/67 H 94 03/03/18 23:17 03/04/18 03:01 03/04/18 03:00 03/04/18 03:01 General appearance: PRESENT: cooperative, mild distress, obese Head exam: PRESENT: atraumatic, normocephalic Eye exam: PRESENT: conjunctiva pink, EOMI, PERRLA. ABSENT: scleral icterus Ear exam: PRESENT: normal external ear exam Mouth exam: PRESENT: moist, tongue midline Neck exam: ABSENT: carotid bruit, JVD, lymphadenopathy, thyromegaly Respiratory exam: PRESENT: accessory muscle use, crackles, decreased breath sounds, prolonged expiratory phas, rales, retraction, rhonchi, tachypnea, other - Reproducible sharp left-sided chest pain with cough and deep breathing. ABSENT: chest wall tenderness Cardiovascular exam: PRESENT: RRR. ABSENT: diastolic murmur, rubs, systolic murmur Pulses: PRESENT: normal dorsalis pedis pul Vascular exam: PRESENT: normal capillary refill GI/Abdominal exam: PRESENT: normal bowel sounds, soft. ABSENT: distended, guarding, mass, organolmegaly, rebound, tenderness Rectal exam: PRESENT: deferred Extremities exam: PRESENT: full ROM. ABSENT: calf tenderness, clubbing, pedal edema Neurological exam: PRESENT: alert, awake, oriented to person, oriented to place , oriented to time, oriented to situation, CN II-XII grossly intact. ABSENT: motor sensory deficit Psychiatric exam: PRESENT: appropriate affect, normal mood. ABSENT: homicidal ideation, suicidal ideation Skin exam: PRESENT: dry, intact, warm. ABSENT: cyanosis, rash Results Impressions: Chest X-Ray 03/03/18 23:17 IMPRESSION: New small left basilar pneumonia-atelectasis. Assessment & Plan - Diagnosis (1) Pleuritic chest pain Is this a current diagnosis for this admission?: Yes Plan: Most likely secondary to pneumonia with atelectasis though given her risk factors for coronary artery disease will repeat cardiac enzymes in 6 hours, symptomatic management incentive spirometry and flutter valve. (2) Left lower lobe pneumonia Qualifiers: Pneumonia type: due to unspecified organism Qualified Code(s): J18.1 - Lobar pneumonia, unspecified organism Is this a current diagnosis for this admission?: Yes Plan: Pneumonia care set, vancomycin and cefepime ordered, incentive spirometry, albuterol and Atrovent follow-up CBC and blood culture (3) CKD (chronic kidney disease) stage 3, GFR 30-59 ml/min Is this a current diagnosis for this admission?: Yes Plan: Avoid nephrotoxic meds and doses pharmacy to dose vancomycin. Follow-up chemistry (4) COPD exacerbation Is this a current diagnosis for this admission?: Yes Plan: Flutter valve, albuterol and Atrovent, avoidance of tobacco (5) JENNIE (obstructive sleep apnea) Is this a current diagnosis for this admission?: Yes Plan: Noncompliance, education (6) Tobacco abuse Is this a current diagnosis for this admission?: Yes Plan: Tobacco Dependence patient received tobacco cessation counseling and offered nicotine replacement options - Time Time Spent: 50 to 70 Minutes - Inpatient Certification Medical Necessity: Need Close Monitoring Due to Risk of Patient Decompensation
[2018-03-04] MEDS ORDERED: CHLORPHENIRAMINE MALEATE 4 MG TABLET ONE (05:09)
[2018-03-04] MEDS ORDERED: VANCOMYCIN HCL INJ 1000 MG VIAL ONE (05:10)
[2018-03-04] MEDS ORDERED: CEFEPIME INJ 2 GM VIAL ONE (05:10)
[2018-03-04 05:31] LABS: CREATINE KINASE MB 1.54 ng/mL (<4.55)
[2018-03-04 05:34] LABS: TROPONIN I < 0.012 ng/mL
[2018-03-04] MEDS ORDERED: HEPARIN SOD (PORCINE) 5,000 UNIT/ML 1 ML SYRINGE SUBCUT SCH (06:00)
[2018-03-04] MEDS: HEPARIN SOD (PORCINE) 5,000 UNIT/ML 1 ML SYRINGE SUBCUT SCH ×3 (06:06→21:27)
[2018-03-04] MEDS ORDERED: VANCOMYCIN HCL 1,000 MG in NORMAL SALINE 250 ML IV ONE (06:45)
[2018-03-04 06:46] LABS: APPEARANCE,URINE SLIGHTLY-CLOUDY; BILIRUBIN,URINE NEGATIVE (NEGATIVE); COLOR,URINE YELLOW; GLUCOSE, URINE 50 mg/dL (NEGATIVE); KETONES,URINE NEGATIVE (NEGATIVE); LEUKOCYTE ESTERASE,URINE NEGATIVE (NEGATIVE); NITRITE,URINE NEGATIVE (NEGATIVE); PROTEIN,URINE NEGATIVE (NEGATIVE); URINE SPECIFIC GRAVITY 1.012; UROBILINOGEN,URINE NEGATIVE mg/dL (<2.0)
--- NOTE | 2018-03-04 07:49 | EKG REPORT ---
SEVERITY:- ABNORMAL ECG - SINUS RHYTHM LEFT BUNDLE BRANCH BLOCK : Confirmed by: Paras Alvarado MD 04-Mar-2018 07:48:33
[2018-03-04] MEDS: IPRATROPIUM/ALBUTEROL 0.5-2.5 MG/3 ML AMPUL NEB SCH ×3 (08:21→20:24)
[2018-03-04] MEDS: ASPIRIN 81 MG TABLET, ENT COATED PO SCH (09:34)
[2018-03-04] MEDS: FLUTICASONE NASAL SPRAY 50 MCG/SPRY 120 SPRAY/16 GM NASL SCH ×2 (09:35→21:26)
[2018-03-04] MEDS: GABAPENTIN 400 MG CAPSULE PO SCH ×2 (09:35→21:26)
[2018-03-04] MEDS: LISINOPRIL 5 MG TABLET PO SCH (09:35)
[2018-03-04] MEDS: GUAIFENESIN 600 MG TABLET.SA PO SCH ×2 (09:35→21:26)
[2018-03-04] MEDS ORDERED: LORAZEPAM 0.5 MG TABLET PO ONE (11:00)
[2018-03-04] MEDS ORDERED: HYDROCODONE/ACETAMINOPHEN 5-325 MG TABLET PO PRN (12:21)
[2018-03-04] MEDS ORDERED: DEXTROSE 50%-WATER 25 GM/50 ML DISP.SYRIN IV PRN ×2 (12:23)
[2018-03-04] MEDS ORDERED: GLUCAGON,HUMAN RECOMB 1 MG INJ IM PRN (12:23)
[2018-03-04] MEDS ORDERED: DEXTROSE 40% GEL 15 GM TUBE PO PRN ×2 (12:23)
--- NOTE | 2018-03-04 13:34 | EKG REPORT ---
SEVERITY:- ABNORMAL ECG - SINUS RHYTHM LEFT BUNDLE BRANCH BLOCK : Confirmed by: Paras Alvarado MD 04-Mar-2018 13:34:00
[2018-03-04] MEDS ORDERED: CARVEDILOL 3.125 MG TABLET PO ONE (14:00)
--- NOTE | 2018-03-04 17:04 | PDOC PROGRESS REPORT ---
Subjective Progress Note for:: 03/04/18 Subjective:: The patient is a 72-year-old female with a past medical history of left bundle branch block, home oxygen dependent COPD, allergic sinusitis, GERD, osteoarthritis, diabetes and obstructive sleep apnea with noncompliance who was admitted on 03/04/18 with dyspnea and evidence of a new left-sided pneumonia by CXR. The patient was seen on morning rounds. She was found sitting up to the edge of the bed or using her incentive spirometry. She is currently on supplemental oxygen at her baseline oxygen requirement. The patient did experience some chest pain this morning shortly after receiving a DuoNeb treatment for shortness of breath. During the same timeframe, nursing noted a 6 beat run of V. tach at that spontaneously resolved. At present, the patient is pain-free and denies dyspnea. She denies fever, chills, orthopnea, abdominal pain, nausea vomiting and diarrhea. She does endorse intermittent dyspnea on exertion, productive cough, and chest pain following nebulizer treatments. She has no other questions or concerns at this time. Reason For Visit: CHEST PAIN COPD EXACERBATION JENNIE PNEUMONIA Physical Exam Vital Signs: Temp Pulse Resp BP Pulse Ox 98.3 F 96 18 137/70 H 97 03/04/18 15:09 03/04/18 15:09 03/04/18 15:09 03/04/18 15:09 03/04/18 15:09 Intake & Output 03/03/18 03/04/18 03/05/18 06:59 06:59 06:59 Intake Total 400 563 Output Total 450 Balance 400 113 Weight 71.6 kg General appearance: PRESENT: no acute distress, cooperative, well-developed, well-nourished, other - Overweight Head exam: PRESENT: atraumatic, normocephalic Eye exam: PRESENT: conjunctiva pink, EOMI, PERRLA. ABSENT: scleral icterus Ear exam: PRESENT: normal external ear exam Mouth exam: PRESENT: moist, tongue midline Neck exam: ABSENT: carotid bruit, JVD, lymphadenopathy, thyromegaly Respiratory exam: PRESENT: rhonchi, symmetrical, unlabored, wheezes, other - Supplemental oxygen. ABSENT: rales Cardiovascular exam: PRESENT: RRR, +S1, +S2. ABSENT: diastolic murmur, rubs, systolic murmur, tachycardia Pulses: PRESENT: normal dorsalis pedis pul Vascular exam: PRESENT: normal capillary refill GI/Abdominal exam: PRESENT: normal bowel sounds, soft. ABSENT: distended, guarding, mass, organolmegaly, rebound, tenderness Rectal exam: PRESENT: deferred Extremities exam: PRESENT: full ROM. ABSENT: calf tenderness, clubbing, pedal edema Neurological exam: PRESENT: alert, awake, oriented to person, oriented to place , oriented to time, oriented to situation, CN II-XII grossly intact. ABSENT: motor sensory deficit Psychiatric exam: PRESENT: appropriate affect, normal mood. ABSENT: homicidal ideation, suicidal ideation Skin exam: PRESENT: dry, intact, warm. ABSENT: cyanosis, rash Results Laboratory Results: 03/04/18 03/04/18 06:05 12:19 Magnesium 1.9 Urine Color YELLOW Urine Appearance SLIGHTLY-CLOUDY Urine pH 5.0 Ur Specific [place] 1.012 Urine Protein NEGATIVE Urine Glucose (UA) 50 H Urine Ketones NEGATIVE Urine Blood NEGATIVE Urine Nitrite NEGATIVE Ur Leukocyte Esterase NEGATIVE Urine WBC (Auto) 0 Urine RBC (Auto) 0 03/04/18 03/04/18 03/04/18 04:54 04:54 12:19 Creatine Kinase 37 CK-MB (CK-2) 1.54 Troponin I < 0.012 < 0.012 Impressions: Chest X-Ray 03/03/18 23:17 IMPRESSION: New small left basilar pneumonia-atelectasis. Assessment & Plan - Diagnosis (1) Left lower lobe pneumonia Qualifiers: Pneumonia type: due to unspecified organism Qualified Code(s): J18.1 - Lobar pneumonia, unspecified organism Is this a current diagnosis for this admission?: Yes Plan: The patient was admitted with dyspnea while at rest. She was found to be tachycardia, tachycardic, maintained oxygen saturations on her baseline oxygen requirement. Chest x-ray revealed a left lower lobe pneumonia. Cultures are pending. The patient is admitted to the medical floor on continuous cardiac telemetry. Supplemental oxygen as required to maintain oxygen saturations greater than 88%. She is receiving IV vancomycin and cefepime for coverage of healthcare acquired pneumonia as she was recently in our facility. Duo neb treatments are available as needed. Incentive spirometry to bedside. (2) Chest pain Is this a current diagnosis for this admission?: Yes Plan: Chest pain may be pleuritic in nature given she is currently admitted with a left lower lobe pneumonia and COPD exacerbation. However, the patient does have multiple risk factors including obesity, diabetes , hypertension, hyperlipidemia, JENNIE, poor medication compliance, previous [place], and a left bundle branch block. Serial troponins are negative. Cardiology has been consulted; appreciate their evaluations and recommendations. (3) Pleuritic chest pain Is this a current diagnosis for this admission?: Yes Plan: Symptomatic management. Incentive spirometry and flutter valve to bedside. We will further evaluate chest pain as above. (4) CKD (chronic kidney disease) stage 3, GFR 30-59 ml/min Is this a current diagnosis for this admission?: Yes Plan: We will avoid nephrotoxic medications. Pharmacy to dose vancomycin. We will monitor with daily chemistries. (5) COPD exacerbation Is this a current diagnosis for this admission?: Yes Plan: Supplemental oxygen as required to maintain oxygen saturations greater than 88% Incentive spirometry and flutter valve to bedside. Duo nebs as needed. We will hold on steroid therapy for now. (6) JENNIE (obstructive sleep apnea) Is this a current diagnosis for this admission?: Yes Plan: CPAP to bedside; encourage use. (7) Tobacco abuse Is this a current diagnosis for this admission?: Yes Plan: Smoking cessation is encouraged; nicotine or placement therapy is offered. (8) Nonsustained ventricular tachycardia Is this a current diagnosis for this admission?: Yes Plan: The patient experienced chest pain following a DuoNeb treatment that was associated with a nonsustained run of V. tach for approximately 8 beats. The patient is placed on carvedilol 3.125 mg p.o. twice daily. Cardiology has been consulted; appreciate their evaluation recommendations. - Time Time Spent with patient: 25-34 minutes Medications reviewed and adjusted accordingly: Yes
[2018-03-04] MEDS: SUCRALFATE 1 GM TABLET PO SCH ×2 (17:20→21:26)
[2018-03-04] MEDS: HYDROCODONE/ACETAMINOPHEN 5-325 MG TABLET PO PRN (21:25)
[2018-03-04] MEDS: CARVEDILOL 3.125 MG TABLET PO SCH (21:26)
[2018-03-04] MEDS: INSULIN LISPRO 100 UNIT/ML 3 ML VIAL SUBCUT PRN (21:27)
[2018-03-04] MEDS ORDERED: GABAPENTIN 400 MG CAPSULE PO SCH (22:00)
[2018-03-05] MEDS ORDERED: CALCIUM CARBONATE 500 MG TAB.CHEW PO PRN (01:49)
[2018-03-05] MEDS: IPRATROPIUM/ALBUTEROL 0.5-2.5 MG/3 ML AMPUL NEB SCH ×4 (02:30→20:15)
[2018-03-05] MEDS: CEFEPIME 1 GM/D5W RTU 1 GM/50 ML RTUPB IV SCH (05:07)
[2018-03-05] MEDS: LANSOPRAZOLE 30 MG TAB.RAP.DR PO SCH (05:07)
[2018-03-05] MEDS: HEPARIN SOD (PORCINE) 5,000 UNIT/ML 1 ML SYRINGE SUBCUT SCH ×3 (05:08→22:07)
[2018-03-05 07:20] LABS: HEMATOCRIT 32.6 % (36.0-47.0); HEMOGLOBIN 10.4 g/dL (12.0-15.5); MEAN CORPUSCULAR HEMOGLOBIN 29.7 pg (27.0-33.4); MEAN CORPUSCULAR VOLUME 93 fl (80-97); PLATELET COUNT 185 10^3/uL (150-450); RED BLOOD COUNT 3.52 10^6/uL (3.72-5.28); WHITE BLOOD COUNT 16.8 10^3/uL (4.0-10.5)
[2018-03-05 07:29] LABS: ANION GAP 7 (5-19); BLOOD UREA NITROGEN 27 mg/dL (7-20); CALCIUM 8.9 mg/dL (8.4-10.2); CARBON DIOXIDE 27 mmol/L (22-30); CHLORIDE 107 mmol/L (98-107); GLUCOSE 145 mg/dL (75-110); POTASSIUM 4.2 mmol/L (3.6-5.0); SODIUM 140.9 mmol/L (137-145)
[2018-03-05] MEDS ORDERED: VANCOMYCIN HCL 750 MG in DEXTROSE 5%-WATER 250 ML IV SCH (08:00)
[2018-03-05] MEDS: FLUTICASONE/SALMETEROL DISKUS 250-50 MCG/DOSE IH SCH (09:45)
[2018-03-05] MEDS: FLUTICASONE NASAL SPRAY 50 MCG/SPRY 120 SPRAY/16 GM NASL SCH ×2 (09:45→22:08)
[2018-03-05] MEDS: LISINOPRIL 5 MG TABLET PO SCH (09:46)
[2018-03-05] MEDS: ASPIRIN 81 MG TABLET, ENT COATED PO SCH (09:46)
[2018-03-05] MEDS: SUCRALFATE 1 GM TABLET PO SCH ×4 (09:47→22:08)
[2018-03-05] MEDS: GABAPENTIN 400 MG CAPSULE PO SCH ×2 (09:47→22:07)
[2018-03-05] MEDS: CARVEDILOL 3.125 MG TABLET PO SCH ×2 (09:47→22:07)
[2018-03-05] MEDS: GUAIFENESIN 600 MG TABLET.SA PO SCH ×2 (09:47→22:07)
[2018-03-05] MEDS ORDERED: LISINOPRIL 5 MG TABLET PO SCH (10:00)
[2018-03-05] MEDS ORDERED: TIOTROPIUM BROMIDE DPI 5 CAP/KIT (18 MCG/CAP) IH SCH (10:00)
[2018-03-05] MEDS ORDERED: ASPIRIN 81 MG TABLET, ENT COATED PO SCH (10:00)
--- NOTE | 2018-03-05 14:04 | PDOC PROGRESS REPORT ---
Subjective Progress Note for:: 03/05/18 Subjective:: The patient is a 72-year-old female with a past medical history of left bundle branch block, home oxygen dependent COPD, allergic sinusitis, GERD, osteoarthritis, diabetes and obstructive sleep apnea with noncompliance who was admitted on 03/04/18 with dyspnea and evidence of a new left-sided pneumonia by CXR. The patient was seen on morning rounds. She was found ambulating in her room without difficulty. She is currently on supplemental oxygen at her baseline oxygen requirement. She states she is feeling better; she is now only having intermittent dyspnea. She denies fever, chills, chest pain, palpitations, orthopnea, abdominal pain, nausea, vomiting, and diarrhea. She has no new questions or concerns today. Reason For Visit: CHEST PAIN COPD EXACERBATION JENNIE PNEUMONIA Physical Exam Vital Signs: Temp Pulse Resp BP Pulse Ox 97.6 F 65 18 139/60 H 97 03/05/18 11:29 03/05/18 11:29 03/05/18 11:29 03/05/18 11:29 03/05/18 11:29 Intake & Output 03/04/18 03/05/18 03/06/18 06:59 06:59 06:59 Intake Total 400 3588 Output Total 450 Balance 400 3138 Weight 71.6 kg 72.2 kg General appearance: PRESENT: no acute distress, cooperative - Pleasant, well- developed, well-nourished, other - Overweight Head exam: PRESENT: atraumatic, normocephalic Eye exam: PRESENT: conjunctiva pink, EOMI, PERRLA. ABSENT: scleral icterus Ear exam: PRESENT: normal external ear exam Mouth exam: PRESENT: moist, tongue midline Neck exam: ABSENT: carotid bruit, JVD, lymphadenopathy, thyromegaly Respiratory exam: PRESENT: rhonchi, symmetrical, unlabored. ABSENT: rales, wheezes Cardiovascular exam: PRESENT: RRR, +S1, +S2. ABSENT: diastolic murmur, rubs, systolic murmur, tachycardia Pulses: PRESENT: normal dorsalis pedis pul Vascular exam: PRESENT: normal capillary refill GI/Abdominal exam: PRESENT: normal bowel sounds, soft. ABSENT: distended, guarding, mass, organolmegaly, rebound, tenderness Rectal exam: PRESENT: deferred Extremities exam: PRESENT: full ROM. ABSENT: calf tenderness, clubbing, pedal edema Neurological exam: PRESENT: alert, awake, oriented to person, oriented to place , oriented to time, oriented to situation, CN II-XII grossly intact. ABSENT: motor sensory deficit Psychiatric exam: PRESENT: appropriate affect, normal mood. ABSENT: homicidal ideation, suicidal ideation Skin exam: PRESENT: dry, intact, warm. ABSENT: cyanosis, rash Results Laboratory Results: 03/05/18 06:55 03/05/18 06:55 03/05/18 03/05/18 06:55 06:55 WBC 16.8 H RBC 3.52 L Hgb 10.4 L Hct 32.6 L MCV 93 MCH 29.7 MCHC 32.0 RDW 14.0 Plt Count 185 Sodium 140.9 Potassium 4.2 Chloride 107 Carbon Dioxide 27 Anion Gap 7 BUN 27 H Creatinine 0.98 Est GFR ( Amer) > 60 Est GFR (Non-Af Amer) 56 L Glucose 145 H Calcium 8.9 03/04/18 03/04/18 03/04/18 04:54 04:54 12:19 Creatine Kinase 37 CK-MB (CK-2) 1.54 Troponin I < 0.012 < 0.012 Impressions: Chest X-Ray 03/03/18 23:17 IMPRESSION: New small left basilar pneumonia-atelectasis. Assessment & Plan - Diagnosis (1) Left lower lobe pneumonia Qualifiers: Pneumonia type: due to unspecified organism Qualified Code(s): J18.1 - Lobar pneumonia, unspecified organism Is this a current diagnosis for this admission?: Yes Plan: Improved. Leukocytosis is trending down, patient is afebrile, tachycardia has resolved, she is now ambulatory without dyspnea. Chest x-ray revealed a left lower lobe pneumonia. Cultures have no growth to date. The patient is admitted to the medical floor on continuous cardiac telemetry. Supplemental oxygen as required to maintain oxygen saturations greater than 88%. She is receiving IV vancomycin and cefepime for coverage of healthcare acquired pneumonia as she was recently in our facility. Duo neb treatments are available as needed. Incentive spirometry to bedside. (2) Chest pain Is this a current diagnosis for this admission?: Yes Plan: No further episodes. Chest pain may be pleuritic in nature as she is currently admitted with a left lower lobe pneumonia and COPD exacerbation. However, the patient does have multiple risk factors including obesity, diabetes , hypertension, hyperlipidemia, JENNIE, poor medication compliance, previous [place], and a left bundle branch block. Serial troponins are negative. Cardiology has been consulted; appreciate their evaluations and recommendations. (3) Pleuritic chest pain Is this a current diagnosis for this admission?: Yes Plan: Symptomatic management. Incentive spirometry and flutter valve to bedside. We will further evaluate chest pain as above. (4) CKD (chronic kidney disease) stage 3, GFR 30-59 ml/min Is this a current diagnosis for this admission?: Yes Plan: We will avoid nephrotoxic medications. Pharmacy to dose vancomycin. We will monitor with daily chemistries. (5) COPD exacerbation Is this a current diagnosis for this admission?: Yes Plan: Supplemental oxygen as required to maintain oxygen saturations greater than 88% Incentive spirometry and flutter valve to bedside. Duo nebs as needed. We will hold on steroid therapy for now. (6) JENNIE (obstructive sleep apnea) Is this a current diagnosis for this admission?: Yes Plan: CPAP to bedside; encourage use. (7) Tobacco abuse Is this a current diagnosis for this admission?: Yes Plan: Smoking cessation is encouraged; nicotine or placement therapy is offered. (8) Nonsustained ventricular tachycardia Is this a current diagnosis for this admission?: Yes Plan: No further episodes of chest pain or nonsustaining v. tach. The patient is placed on carvedilol 3.125 mg p.o. twice daily. Cardiology has been consulted; appreciate their evaluation recommendations. - Time Time Spent with patient: 25-34 minutes Medications reviewed and adjusted accordingly: Yes Anticipated discharge: Home Within: within 72 hours
--- NOTE | 2018-03-05 16:02 | PDOC CONSULTATION ---
Consultation Consult Date: 03/04/18 Attending physician:: JETT VILLAFUERTE Consult reason:: Shortness of breath History of Present Illness Admission Date/PCP: 03/04/18 02:48 KYLE NIETO MD Patient complains of: Shortness of breath History of Present Illness: GAVI PEDRO is a 72 year old female with a past medical history of left bundle branch block, home oxygen dependent COPD, allergic sinusitis, GERD, osteoarthritis, diabetes and obstructive sleep apnea with noncompliance who was admitted on 03/04/18 with dyspnea and evidence of a new left-sided pneumonia by CXR. The patient was seen on morning rounds. She was found sitting up to the edge of the bed or using her incentive spirometry. She is currently on supplemental oxygen at her baseline oxygen requirement. The patient did experience some chest pain this morning shortly after receiving a DuoNeb treatment for shortness of breath. During the same timeframe, nursing noted a 6 beat run of V. tach at that spontaneously resolved. At present, the patient is pain-free and denies dyspnea. She denies fever, chills, orthopnea, abdominal pain, nausea vomiting and diarrhea. She does endorse intermittent dyspnea on exertion, productive cough, and chest pain following nebulizer treatments. She has no other questions or concerns at this time. This history obtained by the hospitalist was reviewed. Patient on repeated questioning denied any syncope, near syncope. She does give history of congestive heart failure. Prior echocardiogram about 2 years ago had showed normal LVEF. Patient has baseline left bundle branch block pattern. Patient denied any sustained palpitations. Patient currently also being treated for COPD. Telemetry strips reviewed confirmed a short run of nonsustained wide- complex tachycardia. Past Medical History Cardiac Medical History: Reports: Congestive Heart Failure, Coronary Artery Disease, DVT, Hypertension Denies: Myocardial Infarction, Heart Murmur Pulmonary Medical History: Reports: Asthma, Chronic Obstructive Pulmonary Disease (COPD) Denies: Respiratory Failure, Sleep Apnea, Tuberculosis Neurological Medical History: Denies: Seizures Endocrine Medical History: Reports: Diabetes Mellitus Type 2 GI Medical History: Reports: Diverticulitis, Gastroesophageal Reflux Disease Denies: Hepatitis, Hiatal Hernia Musculoskeltal Medical History: Reports: Arthritis Psychiatric Medical History: Denies: Depression Hematology: Reports: Anemia - TAKE IRON SOMETIMES Denies: Hemophilia, Sickle Cell Disease Past Surgical History Past Surgical History: Reports: Appendectomy, Cholecystectomy, Herniorrhaphy, Hysterectomy, Orthopedic Surgery - rotator cuff Denies: Amputation, Mastectomy, Pacemaker Social History Information Source: Patient Lives with: Alone Smoking Status: Current Every Day Smoker Frequency of Alcohol Use: None Hx Recreational Drug Use: No Drugs: None Hx Prescription Drug Abuse: No - Advance Directive Resuscitation Status: Full Code Surrogate healthcare decision maker:: Patient's is the surrogate decision-maker Family History Family History: Hypertension Parental Family History Reviewed: Yes Children Family History Reviewed: Yes Sibling(s) Family History Reviewed.: Yes Medication/Allergy Home Medications: Aspirin [Aspirin EC] 81 mg PO DAILY 03/04/18 Cetirizine HCl [Zyrtec 10 mg Tablet] 1 tab PO DAILYP PRN 03/04/18 Fluticasone/Salmeterol [Advair 250-50 Diskus 28 dose] 1 inh IH DAILY 03/04/18 Gabapentin [Neurontin 400 mg Capsule] 400 mg PO Q12 03/04/18 Hydrocodone/Acetaminophen [[place] 5-325 Tablet] 1 each PO BIDP PRN 03/04/18 Lisinopril [Prinivil 5 mg Tablet] 5 mg PO DAILY 03/04/18 Metformin HCl [Glucophage 500 mg Tablet] 500 mg PO BIDBS 03/04/18 Omeprazole 40 mg PO Q6AM 03/04/18 Sucralfate [Carafate 1 gm Tablet] 1 gm PO ACHS 03/04/18 Tiotropium [place] [Spiriva Handihaler 18 mcg/dose (30 Dose)] 1 cap IH DAILY Allergies/Adverse Reactions: ibuprofen [From Motrin] Allergy (Intermediate, Verified 10/12/17 10:13) RASH/UTICARTIA Review of Systems Review of Systems: Please see history of present illness and past medical history as wall. Constitutional: No fever or chills reported. Head : No recent chronic headaches, recent head injury. Eyes: No recent eye pain, diplopia, redness, discharge, acute visual changes. Ears: No recent chronic ear pain, acute hearing loss, ear discharge. Oral cavity: No recent ulcerations, bleeding, oral cavity discomfort. Neck: No recent acute neck pain reported. Hematologic: No recent easy bruising or bleeding or hematologic malignancy reported. Lymphatic: No recent lymphatic malignancy, chronic lymphadenopathy reported yet Cardiovascular system review: See history of present illness. Gives history of congestive heart failure but no history of prior myocardial infarction. No sustained palpitations, syncope or near syncope. Respiratory system review: No recent chronic cough, hemoptysis, blood clots in the lungs reported. Shortness of breath on exertion Gastrointestinal system review: Negative for any recent acute or chronic abdominal pain, hematemesis, melena, recent change in bowel habits. Genitourinary system review: No recent acute or chronic hematuria, flank pain, UTI etc. reported. Skin system review: Negative for any recent abnormal bruising, no rash, no pruritus reported. Neurologic: No prior history of strokes, mini strokes, seizure disorder. Psychologic: No history of major psychosis or major depression reported. Musculoskeletal: Minor aches and pains reported. No acute joint swelling reported. Endocrine: No recent polyuria, polydipsia, recent heat or cold intolerance. Physical Exam Vital Signs: Temp Pulse Resp BP Pulse Ox 97.8 F 76 18 135/55 H 97 03/04/18 19:00 03/04/18 19:00 03/04/18 19:00 03/04/18 19:00 03/04/18 19:00 Intake & Output 03/03/18 03/04/18 03/05/18 06:59 06:59 06:59 Intake Total 400 2238 Output Total 450 Balance 400 1788 Weight 71.6 kg Exam: GENERAL: well-nourished and in no acute distress. Alert and oriented x3 HEAD: Atraumatic, normocephalic. EYES: Pupils equal round and reactive to light, extraocular movements intact, sclera anicteric, conjunctiva are normal. ENT: TMs normal, nares patent, oropharynx clear without exudates. Moist mucous membranes. No oral ulcerations or bleeding gums noted NECK: supple without lymphadenopathy. Trachea is central. No cervical or axillary lymphadenopathy noted. Carotids are 2+, JVD WNL LUNGS: Respiration seems nonlabored, no significant accessory muscle action noted. Bibasilar fine crackles and few coarse wheezes rales or rhonchi noted. No significant dullness noted on percussion. CHEST: Palpation of the chest wall shows no significant chest wall tenderness. No other significant abnormalities noted. 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 ABDOMEN: Soft, no significant tenderness appreciated, normoactive bowel sounds. No guarding, no rebound. No rigidity noted . No masses appreciated. EXTREMITIES: Pedal pulses are 1-2+, no calf tenderness noted. No clubbing or cyanosis. 1+ pedal edema noted NEUROLOGICAL: Focused neurological exam showed no significant neurologic deficit. Normal speech, no focal weakness appreciated. PSYCH: Normal mood, normal affect. Judgment and insight within normal limits. SKIN: No significant ecchymosis, skin is noted to be warm. MUSCULOSKELETAL EXAM: No significant acute joint swelling noted. Results Laboratory Results: 03/04/18 03/04/18 06:05 12:19 Magnesium 1.9 Urine Color YELLOW Urine Appearance SLIGHTLY-CLOUDY Urine pH 5.0 Ur Specific [place] 1.012 Urine Protein NEGATIVE Urine Glucose (UA) 50 H Urine Ketones NEGATIVE Urine Blood NEGATIVE Urine Nitrite NEGATIVE Ur Leukocyte Esterase NEGATIVE Urine WBC (Auto) 0 Urine RBC (Auto) 0 03/04/18 03/04/18 03/04/18 04:54 04:54 12:19 Creatine Kinase 37 CK-MB (CK-2) 1.54 Troponin I < 0.012 < 0.012 EKG Comments: Shows sinus rhythm with left bundle branch block pattern Impressions: Chest X-Ray 03/03/18 23:17 IMPRESSION: New small left basilar pneumonia-atelectasis. Assessment & Plan - Diagnosis (1) Nonsustained ventricular tachycardia Is this a current diagnosis for this admission?: Yes (2) Chest pain Qualifiers: Chest pain type: unspecified Qualified Code(s): R07.9 - Chest pain, unspecified Is this a current diagnosis for this admission?: Yes (3) Left lower lobe pneumonia Qualifiers: Pneumonia type: due to unspecified organism Qualified Code(s): J18.1 - Lobar pneumonia, unspecified organism Is this a current diagnosis for this admission?: Yes (4) Acute and chronic respiratory failure ([id number]) Qualifiers: Respiratory failure complication: unspecified whether with hypoxia or hypercapnia Qualified Code(s): J96.20 - Acute and chronic respiratory failure , unspecified whether with hypoxia or hypercapnia Is this a current diagnosis for this admission?: Yes (5) COPD exacerbation Is this a current diagnosis for this admission?: Yes - Notes Notes: Nonsustained ventricular tachycardia: For risk assessment will request a 2D echocardiogram. Will try maintain electrolytes within normal limits. Consider reducing beta-2 stimulants. Chest pain: Patient has underlying left bundle branch block pattern. Once patient respiratory status improves, will consider a stress testing. Left lower lobe pneumonia: Continue antibiotic therapy. Acute on chronic respiratory failure: Patient has significant underlying COPD. Continue proper management. May consider pulmonary evaluation. COPD exacerbation: Patient being well managed at this point. Obesity: Patient will benefit from weight loss. - Time Time Spent: 30 to 50 Minutes - CODE STATUS was discussed, patient remains full code. Multiple medical problems were addressed. More than 50% of the time spent coordinating care, discussing management plans with involved caregivers. Management plans discussed with involved personnels. Medical decision making was of moderate to high complexity, patient's has multiple comorbidities. Medications reviewed and adjusted accordingly: Yes
--- NOTE | 2018-03-05 16:04 | PDOC PROGRESS REPORT ---
Subjective Progress Note for:: 03/05/18 Subjective:: Patient seems to be doing better with gradual improvement. Pt is denying any chest arm or neck discomfort. Patient denying any PND, orthopnea. Patient denied any sustained palpitations, dizziness, syncope, near syncope. Patient denying any fever chills. Patient denying any other significant discomfort. Patient is maintaining sinus rhythm. No further episodes of nonsustained ventricular tachycardia noted. Cardiac enzymes came back negative 1 Review of systems: Rest review of systems negative. Medications: Medications have been reviewed. Reason For Visit: CHEST PAIN COPD EXACERBATION JENNIE PNEUMONIA Physical Exam Vital Signs: Temp Pulse Resp BP Pulse Ox 97.6 F 67 16 139/60 H 96 03/05/18 11:29 03/05/18 14:15 03/05/18 14:15 03/05/18 11:29 03/05/18 14:15 Intake & Output 03/04/18 03/05/18 03/06/18 06:59 06:59 06:59 Intake Total 400 3588 Output Total 450 Balance 400 3138 Weight 71.6 kg 72.2 kg Exam: GENERAL: well-nourished and in no acute distress. Alert and oriented x3 HEAD: Atraumatic, normocephalic. EYES: Pupils equal round and reactive to light, extraocular movements intact, sclera anicteric, conjunctiva are normal. ENT: TMs normal, nares patent, oropharynx clear without exudates. Moist mucous membranes. No oral ulcerations or bleeding gums noted NECK: supple without lymphadenopathy. Trachea is central. No cervical or axillary lymphadenopathy noted. Carotids are 2+, JVD WNL LUNGS: Respiration seems nonlabored, no significant accessory muscle action noted. Bibasilar fine crackles and scattered bilateral wheezes rales or rhonchi noted. No significant dullness noted on percussion. CHEST: Palpation of the chest wall shows no significant chest wall tenderness. No other significant abnormalities noted. 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 ABDOMEN: Soft, no significant tenderness appreciated, normoactive bowel sounds. No guarding, no rebound. No rigidity noted . No masses appreciated. EXTREMITIES: Pedal pulses are 1-2+, no calf tenderness noted. No clubbing or cyanosis. 1+ pedal edema noted NEUROLOGICAL: Focused neurological exam showed no significant neurologic deficit. Normal speech, no focal weakness appreciated. PSYCH: Normal mood, normal affect. Judgment and insight within normal limits. SKIN: No significant ecchymosis, skin is noted to be warm. MUSCULOSKELETAL EXAM: No significant acute joint swelling noted. Results Laboratory Results: 03/05/18 06:55 03/05/18 03/05/18 06:55 06:55 WBC 16.8 H RBC 3.52 L Hgb 10.4 L Hct 32.6 L MCV 93 MCH 29.7 MCHC 32.0 RDW 14.0 Plt Count 185 Sodium 140.9 Potassium 4.2 Chloride 107 Carbon Dioxide 27 Anion Gap 7 BUN 27 H Creatinine 0.98 Est GFR ( Amer) > 60 Est GFR (Non-Af Amer) 56 L Glucose 145 H Calcium 8.9 03/04/18 03/04/18 03/04/18 04:54 04:54 12:19 Creatine Kinase 37 CK-MB (CK-2) 1.54 Troponin I < 0.012 < 0.012 Impressions: Chest X-Ray 03/03/18 23:17 IMPRESSION: New small left basilar pneumonia-atelectasis. Assessment & Plan - Diagnosis (1) Nonsustained ventricular tachycardia Is this a current diagnosis for this admission?: Yes (2) Chest pain Qualifiers: Chest pain type: unspecified Qualified Code(s): R07.9 - Chest pain, unspecified Is this a current diagnosis for this admission?: Yes (3) Left lower lobe pneumonia Qualifiers: Pneumonia type: due to unspecified organism Qualified Code(s): J18.1 - Lobar pneumonia, unspecified organism Is this a current diagnosis for this admission?: Yes (4) Acute and chronic respiratory failure ([id number]) Qualifiers: Respiratory failure complication: unspecified whether with hypoxia or hypercapnia Qualified Code(s): J96.20 - Acute and chronic respiratory failure , unspecified whether with hypoxia or hypercapnia Is this a current diagnosis for this admission?: Yes (5) COPD exacerbation Is this a current diagnosis for this admission?: Yes - Notes Notes: 2D echo still pending. Will schedule nuclear stress test once respiratory status has improved. No recurrence of nonsustained ventricular tachycardia. Nonsustained ventricular tachycardia: For risk assessment will request a 2D echocardiogram. Will try maintain electrolytes within normal limits. Consider reducing beta-2 stimulants. Chest pain: Patient has underlying left bundle branch block pattern. Once patient respiratory status improves, will consider a stress testing. Left lower lobe pneumonia: Continue antibiotic therapy. Acute on chronic respiratory failure: Patient has significant underlying COPD. Continue proper management. May consider pulmonary evaluation. COPD exacerbation: Patient being well managed at this point. Obesity: Patient will benefit from weight loss. - Time Time with patient: Greater than 35 minutes - CODE STATUS was discussed, patient remains full code. Multiple medical problems were addressed. More than 50% of the time spent coordinating care, discussing management plans with involved caregivers. Management plans discussed with involved personnels. Medical decision making was of moderate to high complexity, patient's has multiple comorbidities. Medications reviewed and adjusted accordingly: Yes
[2018-03-05] MEDS: VANCOMYCIN HCL 750 MG in DEXTROSE 5%-WATER 250 ML IV SCH (22:08)
[2018-03-05] MEDS: INSULIN LISPRO 100 UNIT/ML 3 ML VIAL SUBCUT PRN (22:10)
[2018-03-06] MEDS: IPRATROPIUM/ALBUTEROL 0.5-2.5 MG/3 ML AMPUL NEB SCH ×4 (02:01→20:17)
[2018-03-06 05:55] LABS: HEMATOCRIT 33.6 % (36.0-47.0); HEMOGLOBIN 10.8 g/dL (12.0-15.5); MEAN CORPUSCULAR HEMOGLOBIN 29.8 pg (27.0-33.4); MEAN CORPUSCULAR HGB CONC 32.3 g/dL (32.0-36.0); MEAN CORPUSCULAR VOLUME 92 fl (80-97); PLATELET COUNT 179 10^3/uL (150-450); RED BLOOD COUNT 3.63 10^6/uL (3.72-5.28); RED CELL DISTRIBUTION WIDTH 14.1 % (11.5-14.0); WHITE BLOOD COUNT 14.2 10^3/uL (4.0-10.5)
[2018-03-06 06:37] LABS: ANION GAP 5 (5-19); BLOOD UREA NITROGEN 32 mg/dL (7-20); CALCIUM 9.2 mg/dL (8.4-10.2); CARBON DIOXIDE 30 mmol/L (22-30); CHLORIDE 101 mmol/L (98-107); GLUCOSE 145 mg/dL (75-110); POTASSIUM 4.2 mmol/L (3.6-5.0); SODIUM 136.3 mmol/L (137-145)
[2018-03-06] MEDS: LANSOPRAZOLE 30 MG TAB.RAP.DR PO SCH (06:53)
[2018-03-06] MEDS: CEFEPIME 1 GM/D5W RTU 1 GM/50 ML RTUPB IV SCH (06:53)
[2018-03-06] MEDS: HEPARIN SOD (PORCINE) 5,000 UNIT/ML 1 ML SYRINGE SUBCUT SCH ×3 (06:55→21:07)
[2018-03-06] MEDS: SUCRALFATE 1 GM TABLET PO SCH ×4 (08:12→21:07)
[2018-03-06] MEDS: GABAPENTIN 400 MG CAPSULE PO SCH ×2 (10:53→21:07)
[2018-03-06] MEDS: CARVEDILOL 3.125 MG TABLET PO SCH ×2 (10:53→21:07)
[2018-03-06] MEDS: VANCOMYCIN HCL 750 MG in DEXTROSE 5%-WATER 250 ML IV SCH ×2 (10:54→21:07)
[2018-03-06] MEDS: LISINOPRIL 5 MG TABLET PO SCH (10:54)
[2018-03-06] MEDS: GUAIFENESIN 600 MG TABLET.SA PO SCH ×2 (10:54→21:07)
[2018-03-06] MEDS: FLUTICASONE/SALMETEROL DISKUS 250-50 MCG/DOSE IH SCH (10:54)
[2018-03-06] MEDS: ASPIRIN 81 MG TABLET, ENT COATED PO SCH (10:54)
[2018-03-06] MEDS: FLUTICASONE NASAL SPRAY 50 MCG/SPRY 120 SPRAY/16 GM NASL SCH ×2 (10:54→21:07)
[2018-03-06] MEDS: HYDROCODONE/ACETAMINOPHEN 5-325 MG TABLET PO PRN ×2 (10:59→22:34)
--- NOTE | 2018-03-06 11:13 | PDOC PROGRESS REPORT ---
Subjective Progress Note for:: 03/06/18 Subjective:: Patient started on carvedilol. 2D echocardiogram pending. No further runs of V. tach. Patient seems to be doing better with gradual improvement. Pt is denying any chest arm or neck discomfort. Patient denying any PND, orthopnea. Patient denied any sustained palpitations, dizziness, syncope, near syncope. Patient denying any fever chills. Patient denying any other significant discomfort. Patient is maintaining sinus rhythm. No further episodes of nonsustained ventricular tachycardia noted. Cardiac enzymes came back negative. Review of systems: Rest review of systems negative. Medications: Medications have been reviewed. Reason For Visit: CHEST PAIN COPD EXACERBATION JENNIE PNEUMONIA Physical Exam Vital Signs: Temp Pulse Resp BP Pulse Ox 98.5 F 71 18 137/69 H 87 L 03/06/18 07:42 03/06/18 08:00 03/06/18 08:00 03/06/18 07:42 03/06/18 08:00 Intake & Output 03/05/18 03/06/18 03/07/18 06:59 06:59 06:59 Intake Total 3588 1510 Output Total 450 1200 Balance 3138 310 Weight 72.2 kg Exam: GENERAL: well-nourished and in no acute distress. Alert and oriented x3 HEAD: Atraumatic, normocephalic. EYES: Pupils equal round and reactive to light, extraocular movements intact, sclera anicteric, conjunctiva are normal. ENT: TMs normal, nares patent, oropharynx clear without exudates. Moist mucous membranes. No oral ulcerations or bleeding gums noted NECK: supple without lymphadenopathy. Trachea is central. No cervical or axillary lymphadenopathy noted. Carotids are 2+, JVD WNL LUNGS: Respiration seems nonlabored, no significant accessory muscle action noted. Breath sounds clear to auscultation bilaterally and equal noted. Few scattered wheezes rales or rhonchi noted. No significant dullness noted on percussion. CHEST: Palpation of the chest wall shows no significant chest wall tenderness. No other significant abnormalities noted. 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 ABDOMEN: Soft, no significant tenderness appreciated, normoactive bowel sounds. No guarding, no rebound. No rigidity noted . No masses appreciated. EXTREMITIES: Pedal pulses are 1-2+, no calf tenderness noted. No clubbing or cyanosis. negative pedal edema noted NEUROLOGICAL: Focused neurological exam showed no significant neurologic deficit. Normal speech, no focal weakness appreciated. PSYCH: Normal mood, normal affect. Judgment and insight within normal limits. SKIN: No significant ecchymosis, skin is noted to be warm. MUSCULOSKELETAL EXAM: No significant acute joint swelling noted. Results Laboratory Results: 03/06/18 05:33 03/06/18 05:33 03/06/18 03/06/18 05:33 05:33 WBC 14.2 H RBC 3.63 L Hgb 10.8 L Hct 33.6 L MCV 92 MCH 29.8 MCHC 32.3 RDW 14.1 H Plt Count 179 Sodium 136.3 L Potassium 4.2 Chloride 101 Carbon Dioxide 30 Anion Gap 5 BUN 32 H Creatinine 1.02 Est GFR ( Amer) > 60 Est GFR (Non-Af Amer) 53 L Glucose 145 H Calcium 9.2 03/04/18 03/04/18 03/04/18 04:54 04:54 12:19 Creatine Kinase 37 CK-MB (CK-2) 1.54 Troponin I < 0.012 < 0.012 EKG Comments: Telemetry strip shows sinus rhythm. No sustained tachycardia or bradycardia noted. Impressions: Chest X-Ray 03/03/18 23:17 IMPRESSION: New small left basilar pneumonia-atelectasis. Assessment & Plan - Diagnosis (1) Nonsustained ventricular tachycardia Is this a current diagnosis for this admission?: Yes (2) Chest pain Qualifiers: Chest pain type: unspecified Qualified Code(s): R07.9 - Chest pain, unspecified Is this a current diagnosis for this admission?: Yes (3) Left lower lobe pneumonia Qualifiers: Pneumonia type: due to unspecified organism Qualified Code(s): J18.1 - Lobar pneumonia, unspecified organism Is this a current diagnosis for this admission?: Yes (4) Acute and chronic respiratory failure ([id number]) Qualifiers: Respiratory failure complication: unspecified whether with hypoxia or hypercapnia Qualified Code(s): J96.20 - Acute and chronic respiratory failure , unspecified whether with hypoxia or hypercapnia Is this a current diagnosis for this admission?: Yes (5) COPD exacerbation Is this a current diagnosis for this admission?: Yes - Notes Notes: 2D echocardiogram pending. Patient tolerating low-dose beta-elise. Will consider stress testing prior to discharge once respiratory status and pneumonia has improved. Discussed with hospitalist. Nonsustained ventricular tachycardia: For risk assessment will request a 2D echocardiogram. This was requested and is pending. Will try maintain electrolytes within normal limits. Consider reducing beta-2 stimulants. Patient started on beta-elise with which I agree. Chest pain: Patient has underlying left bundle branch block pattern. Once patient respiratory status improves, will consider a stress testing. Left lower lobe pneumonia: Continue antibiotic therapy. Acute on chronic respiratory failure: Patient has significant underlying COPD. Continue proper management. May consider pulmonary evaluation. COPD exacerbation: Patient being well managed at this point. Obesity: Patient will benefit from weight loss. - Time Time with patient: 15-25 minutes - More than 50% of the time spent coordinating care, discussing management plans with involved caregivers. Management plans discussed with involved personnels. Medical decision making was of moderate to high complexity, patient's has multiple comorbidities. Medications reviewed and adjusted accordingly: Yes
[2018-03-06] MEDS ORDERED: NORMAL SALINE 1000 ML 1,000 ML IV PRN (13:11)
--- NOTE | 2018-03-06 13:12 | PDOC PROGRESS REPORT ---
Subjective Progress Note for:: 03/06/18 Subjective:: The patient is a 72-year-old female with a past medical history of left bundle branch block, home oxygen dependent COPD, allergic sinusitis, GERD, osteoarthritis, diabetes and obstructive sleep apnea with noncompliance who was admitted on 03/04/18 with dyspnea and evidence of a new left-sided pneumonia by CXR. The patient was seen on morning rounds. She was found resting in bed comfortably on supplemental oxygen at 3 lpm (baseline O2 requirement is 3 lpm). She is currently on supplemental oxygen at her baseline oxygen requirement. She states she is feeling better; she is now only having intermittent dyspnea. She does report a cough, although it has been nonproductive. She states that she is feeling tired today but otherwise has no new complaints. She denies fever, chills, chest pain, palpitations, orthopnea, abdominal pain, nausea, vomiting, and diarrhea. Reason For Visit: CHEST PAIN COPD EXACERBATION JENNIE PNEUMONIA Physical Exam Vital Signs: Temp Pulse Resp BP Pulse Ox 97.9 F 64 18 92/56 L 93 03/06/18 11:20 03/06/18 11:20 03/06/18 11:20 03/06/18 11:20 03/06/18 11:20 Intake & Output 03/05/18 03/06/18 03/07/18 06:59 06:59 06:59 Intake Total 3588 1510 Output Total 450 1200 Balance 3138 310 Weight 72.2 kg General appearance: PRESENT: no acute distress, well-developed, well-nourished, other - Overweight Head exam: PRESENT: atraumatic, normocephalic Eye exam: PRESENT: conjunctiva pink, EOMI, PERRLA. ABSENT: scleral icterus Ear exam: PRESENT: normal external ear exam Mouth exam: PRESENT: moist, tongue midline Neck exam: ABSENT: carotid bruit, JVD, lymphadenopathy, thyromegaly Respiratory exam: PRESENT: rhonchi, symmetrical, unlabored, other - Supplemental oxygen at 3 L/min. ABSENT: rales, wheezes Cardiovascular exam: PRESENT: RRR, +S1, +S2. ABSENT: diastolic murmur, rubs, systolic murmur Pulses: PRESENT: normal dorsalis pedis pul Vascular exam: PRESENT: normal capillary refill GI/Abdominal exam: PRESENT: normal bowel sounds, soft. ABSENT: distended, guarding, mass, organolmegaly, rebound, tenderness Rectal exam: PRESENT: deferred Extremities exam: PRESENT: full ROM. ABSENT: calf tenderness, clubbing, pedal edema Neurological exam: PRESENT: alert, awake, oriented to person, oriented to place , oriented to time, oriented to situation, CN II-XII grossly intact. ABSENT: motor sensory deficit Psychiatric exam: PRESENT: appropriate affect, normal mood. ABSENT: homicidal ideation, suicidal ideation Skin exam: PRESENT: dry, intact, warm. ABSENT: cyanosis, rash Results Laboratory Results: 03/06/18 05:33 03/06/18 05:33 03/06/18 03/06/18 05:33 05:33 WBC 14.2 H RBC 3.63 L Hgb 10.8 L Hct 33.6 L MCV 92 MCH 29.8 MCHC 32.3 RDW 14.1 H Plt Count 179 Sodium 136.3 L Potassium 4.2 Chloride 101 Carbon Dioxide 30 Anion Gap 5 BUN 32 H Creatinine 1.02 Est GFR ( Amer) > 60 Est GFR (Non-Af Amer) 53 L Glucose 145 H Calcium 9.2 03/04/18 03/04/18 03/04/18 04:54 04:54 12:19 Creatine Kinase 37 CK-MB (CK-2) 1.54 Troponin I < 0.012 < 0.012 Impressions: Chest X-Ray 03/03/18 23:17 IMPRESSION: New small left basilar pneumonia-atelectasis. Assessment & Plan - Diagnosis (1) Left lower lobe pneumonia Qualifiers: Pneumonia type: due to unspecified organism Qualified Code(s): J18.1 - Lobar pneumonia, unspecified organism Is this a current diagnosis for this admission?: Yes Plan: Improved. Leukocytosis is trending down, patient is afebrile, tachycardia has resolved, she is now ambulatory without dyspnea. Chest x-ray revealed a left lower lobe pneumonia. Cultures have no growth to date. The patient is admitted to the medical floor on continuous cardiac telemetry. Supplemental oxygen as required to maintain oxygen saturations greater than 88%. She is receiving IV vancomycin and cefepime for coverage of healthcare acquired pneumonia as she was recently in our facility. Duo neb treatments are available as needed. Incentive spirometry to bedside. (2) Chest pain Qualifiers: Chest pain type: unspecified Qualified Code(s): R07.9 - Chest pain, unspecified Is this a current diagnosis for this admission?: Yes Plan: No further episodes. Chest pain may be pleuritic in nature as she is currently admitted with a left lower lobe pneumonia and COPD exacerbation. However, the patient does have multiple risk factors including obesity, diabetes , hypertension, hyperlipidemia, JENNIE, poor medication compliance, previous GA, and a left bundle branch block. Serial troponins are negative. Echocardiogram is pending. Planning nuclear stress testing once pneumonia improves; anticipating for Wednesday. Cardiology has been consulted; appreciate their evaluations and recommendations. (3) Pleuritic chest pain Is this a current diagnosis for this admission?: Yes Plan: Symptomatic management. Incentive spirometry and flutter valve to bedside. We will further evaluate chest pain as above. (4) CKD (chronic kidney disease) stage 3, GFR 30-59 ml/min Is this a current diagnosis for this admission?: Yes Plan: We will avoid nephrotoxic medications. Pharmacy to dose vancomycin. We will monitor with daily chemistries. (5) COPD exacerbation Is this a current diagnosis for this admission?: Yes Plan: Supplemental oxygen as required to maintain oxygen saturations greater than 88% Incentive spirometry and flutter valve to bedside. Duo nebs as needed. We will hold on steroid therapy for now. (6) JENNIE (obstructive sleep apnea) Is this a current diagnosis for this admission?: Yes Plan: CPAP to bedside; encourage use. (7) Tobacco abuse Is this a current diagnosis for this admission?: Yes Plan: Smoking cessation is encouraged; nicotine or placement therapy is offered. (8) Nonsustained ventricular tachycardia Is this a current diagnosis for this admission?: Yes Plan: No further episodes of chest pain or nonsustaining v. tach. Continue carvedilol 3.125 mg p.o. twice daily. Cardiology has been consulted; appreciate their evaluation recommendations. Echocardiogram has been ordered. - Time Time Spent with patient: 15-24 minutes Anticipated discharge: Home
[2018-03-07] MEDS: IPRATROPIUM/ALBUTEROL 0.5-2.5 MG/3 ML AMPUL NEB SCH ×4 (02:14→20:03)
[2018-03-07] MEDS: HEPARIN SOD (PORCINE) 5,000 UNIT/ML 1 ML SYRINGE SUBCUT SCH ×3 (05:26→21:26)
[2018-03-07] MEDS: LANSOPRAZOLE 30 MG TAB.RAP.DR PO SCH (05:26)
[2018-03-07] MEDS: CEFEPIME 1 GM/D5W RTU 1 GM/50 ML RTUPB IV SCH (05:26)
[2018-03-07 05:52] LABS: ABSOLUTE BASOPHILS # (AUTO) 0.1 10^3/uL (0.0-0.2); ABSOLUTE EOSINOPHILS # (AUTO) 0.2 10^3/uL (0.0-0.6); ABSOLUTE LYMPHOCYTES (AUTO) 3.2 10^3/uL (0.5-4.7); ABSOLUTE MONOCYTES (AUTO) 0.8 10^3/uL (0.1-1.4); ABSOLUTE NEUT (AUTO) 9.3 10^3/uL (1.7-8.2); BASOPHILS % (AUTO) 0.7 % (0-2); EOSINOPHILS % (AUTO) 1.8 % (0-6); HEMATOCRIT 32.3 % (36.0-47.0); HEMOGLOBIN 10.5 g/dL (12.0-15.5); LYMPHOCYTES % (AUTO) 23.6 % (13-45); MEAN CORPUSCULAR HGB CONC 32.6 g/dL (32.0-36.0); MEAN CORPUSCULAR VOLUME 92 fl (80-97); MONOCYTES % (AUTO) 5.8 % (3-13); PLATELET COUNT 190 10^3/uL (150-450); RED BLOOD COUNT 3.52 10^6/uL (3.72-5.28); RED CELL DISTRIBUTION WIDTH 14.5 % (11.5-14.0); SEGMENTED NEUTROPHILS % (AUTO) 68.1 % (42-78); TOTAL CELLS COUNTED % (AUTO) 100 %; WHITE BLOOD COUNT 13.6 10^3/uL (4.0-10.5)
[2018-03-07 06:39] LABS: ANION GAP 5 (5-19); BLOOD UREA NITROGEN 47 mg/dL (7-20); CALCIUM 8.9 mg/dL (8.4-10.2); CARBON DIOXIDE 31 mmol/L (22-30); CHLORIDE 100 mmol/L (98-107); GLUCOSE 131 mg/dL (75-110); POTASSIUM 4.5 mmol/L (3.6-5.0); SODIUM 135.7 mmol/L (137-145)
--- NOTE | 2018-03-07 08:17 | EKG REPORT ---
SEVERITY:- ABNORMAL ECG - SINUS RHYTHM LEFT BUNDLE BRANCH BLOCK : Confirmed by: Francisca Marin 07-Mar-2018 08:16:21
[2018-03-07] MEDS ORDERED: NORMAL SALINE 1000 ML 1,000 ML IV PRN ×2 (08:40→10:28)
[2018-03-07] MEDS: SUCRALFATE 1 GM TABLET PO SCH ×4 (09:16→21:25)
[2018-03-07] MEDS: GABAPENTIN 400 MG CAPSULE PO SCH ×2 (09:16→21:25)
[2018-03-07] MEDS: GUAIFENESIN 600 MG TABLET.SA PO SCH ×2 (09:17→21:25)
[2018-03-07] MEDS: LISINOPRIL 5 MG TABLET PO SCH (09:17)
[2018-03-07] MEDS: CARVEDILOL 3.125 MG TABLET PO SCH ×2 (09:17→20:54)
[2018-03-07] MEDS: FLUTICASONE NASAL SPRAY 50 MCG/SPRY 120 SPRAY/16 GM NASL SCH ×2 (09:17→21:25)
[2018-03-07] MEDS: ASPIRIN 81 MG TABLET, ENT COATED PO SCH (09:17)
[2018-03-07] MEDS: FLUTICASONE/SALMETEROL DISKUS 250-50 MCG/DOSE IH SCH (09:17)
[2018-03-07 10:39] LABS: VANCOMYCIN,TROUGH 13.8 ug/mL (5.0-20.0)
--- NOTE | 2018-03-07 15:53 | Progress Note ---
Provider Note Provider Note: ID Consult Note Asked by Pharmacy to review patient's chart. Ms. Man is a 72 yo woman with pmh including COPD with chronic hypoxic respiratory failure on home oxygen, JENNIE , GERD, and DM. According to the chart, she was recently discharged from a hospitalization at another hospital 9 days ago for COPD exacerbation and pneumonia. Her SOB returned, along with productive cough and L sided pleuritic CP, prompting her presentation to the ED on 03/04/18. She has had no fever. She is on 3-3.5 L O2. Her WBC count on admission was 19.9k. Her CXR was read as showing "new small left basilar pneumonia-atelectasis." Her creatinine was 1.4 on admission. She was treated empirically with vancomycin and cefepime. This was modified to vancomycin and linezolid after about 2-3 days when her creatinine increased to 1.3 after initially decreasing more from admission. Impression/Recommendations Healthcare associated pneumonia - Unfortunately, de-escalation is hampered somewhat by lack of respiratory culture. The patient's radiographic abnormalities were mild, she has shown some improvement, and her BCx are negative. Continuing cefepime is reasonable. Doxycycline may be used in place of linezolid. Doxycycline has anti-MRSA activity and may also potentially have some anti-inflammatory properties that could be clinically useful in a patient who also has COPD. - To help clarify whether MRSA activity is needed at all in the patient's regimen, please send nasal swab MRSA PCR if it can be performed in hospital. A negative MRSA PCR nasal screen has good negative predictive value (97-99%) for MRSA pneumonia and would provide evidence against the need for MRSA coverage. - Suggest treating for 7 days in total. Tiburcio Carl MD, [facility] Infectious Diseases pager [phone]
--- NOTE | 2018-03-07 16:24 | PDOC PROGRESS REPORT ---
Subjective Progress Note for:: 03/07/18 Subjective:: The patient is a 72-year-old female with a past medical history of left bundle branch block, home oxygen dependent COPD, allergic sinusitis, GERD, osteoarthritis, diabetes and obstructive sleep apnea with noncompliance who was admitted on 03/04/18 with dyspnea and evidence of a new left-sided pneumonia by CXR. The patient was seen on morning rounds. She is currently on supplemental oxygen at her baseline oxygen requirement. She admits to refusing BiPAP overnight. She states she is feeling better; she is now only having intermittent dyspnea with activity. She does report a cough, although it continues to be nonproductive and she has been unable to provide a sputum sample. She denies fever, chills, chest pain, palpitations, orthopnea, abdominal pain, nausea, vomiting, and diarrhea. She has no new questions or concerns. Reason For Visit: CHEST PAIN COPD EXACERBATION JENINE PNEUMONIA Physical Exam Vital Signs: Temp Pulse Resp BP Pulse Ox 98.1 F 69 15 105/61 94 03/07/18 11:20 03/07/18 14:17 03/07/18 14:17 03/07/18 11:20 03/07/18 15:37 Intake & Output 03/06/18 03/07/18 03/08/18 06:59 06:59 06:59 Intake Total 1510 1510 Output Total 1200 2200 Balance 310 -690 Weight 86.1 kg General appearance: PRESENT: no acute distress, obese, well-developed, well- nourished Head exam: PRESENT: atraumatic, normocephalic Eye exam: PRESENT: conjunctiva pink, EOMI, PERRLA. ABSENT: scleral icterus Ear exam: PRESENT: normal external ear exam Mouth exam: PRESENT: moist, tongue midline Neck exam: ABSENT: carotid bruit, JVD, lymphadenopathy, thyromegaly Respiratory exam: PRESENT: rhonchi, symmetrical, unlabored. ABSENT: rales, wheezes Cardiovascular exam: PRESENT: RRR, +S1, +S2. ABSENT: diastolic murmur, rubs, systolic murmur Pulses: PRESENT: normal dorsalis pedis pul Vascular exam: PRESENT: normal capillary refill GI/Abdominal exam: PRESENT: normal bowel sounds, soft. ABSENT: distended, guarding, mass, organolmegaly, rebound, tenderness Rectal exam: PRESENT: deferred Extremities exam: PRESENT: full ROM. ABSENT: calf tenderness, clubbing, pedal edema Neurological exam: PRESENT: alert, awake, oriented to person, oriented to place , oriented to time, oriented to situation, CN II-XII grossly intact. ABSENT: motor sensory deficit Psychiatric exam: PRESENT: appropriate affect, normal mood. ABSENT: homicidal ideation, suicidal ideation Skin exam: PRESENT: dry, intact, warm. ABSENT: cyanosis, rash Results Laboratory Results: 03/07/18 05:01 03/07/18 05:01 03/07/18 03/07/18 05:01 05:01 WBC 13.6 H RBC 3.52 L Hgb 10.5 L Hct 32.3 L MCV 92 MCH 30.0 MCHC 32.6 RDW 14.5 H Plt Count 190 Seg Neutrophils % 68.1 Lymphocytes % 23.6 Monocytes % 5.8 Eosinophils % 1.8 Basophils % 0.7 Absolute Neutrophils 9.3 H Absolute Lymphocytes 3.2 Absolute Monocytes 0.8 Absolute Eosinophils 0.2 Absolute Basophils 0.1 Sodium 135.7 L Potassium 4.5 Chloride 100 Carbon Dioxide 31 H Anion Gap 5 BUN 47 H Creatinine 1.29 H Est GFR ( Amer) 49 L Est GFR (Non-Af Amer) 41 L Glucose 131 H Calcium 8.9 03/04/18 03/04/18 03/04/18 04:54 04:54 12:19 Creatine Kinase 37 CK-MB (CK-2) 1.54 Troponin I < 0.012 < 0.012 NT-Pro-B Natriuret Pep 03/07/18 05:01 Creatine Kinase CK-MB (CK-2) Troponin I NT-Pro-B Natriuret Pep 750 Impressions: Chest X-Ray 03/03/18 23:17 IMPRESSION: New small left basilar pneumonia-atelectasis. Assessment & Plan - Diagnosis (1) Left lower lobe pneumonia Qualifiers: Pneumonia type: due to unspecified organism Qualified Code(s): J18.1 - Lobar pneumonia, unspecified organism Is this a current diagnosis for this admission?: Yes Plan: Improved. Leukocytosis is trending down, patient is afebrile, tachycardia has resolved, she is now ambulatory with only occasional minimal dyspnea. She is on her baseline O2 requirement. Chest x-ray revealed a left lower lobe pneumonia. Cultures have no growth to date. The patient is admitted to the medical floor on continuous cardiac telemetry. Supplemental oxygen as required to maintain oxygen saturations greater than 88%. CPAP qHS Duo neb treatments are available as needed. Incentive spirometry to bedside. Infectious Disease was consulted. Have requested a MRSA screening. They also recommend antibiotic changes which were implemented: Continue Cefipime Discontinue Vancomycin/Zyvox; start Doxycycline for anti-MRSA activity and potential anti-inflammatory properties which may benefit her underlying COPD. Recommend a total of 7 days; pt is currently Day #3. (2) Chest pain Qualifiers: Chest pain type: unspecified Qualified Code(s): R07.9 - Chest pain, unspecified Is this a current diagnosis for this admission?: Yes Plan: No further episodes. Chest pain may be pleuritic in nature as she is currently admitted with a left lower lobe pneumonia and COPD exacerbation. However, the patient does have multiple risk factors including obesity, diabetes , hypertension, hyperlipidemia, JENNIE, poor medication compliance, previous AR, and a left bundle branch block. Serial troponins are negative. Echocardiogram has been completed; report not yet available. Planning nuclear stress testing tomorrow; npo after midnight. Cardiology has been consulted; appreciate their evaluations and recommendations. (3) Pleuritic chest pain Is this a current diagnosis for this admission?: Yes Plan: Symptomatic management. Incentive spirometry and flutter valve to bedside. We will further evaluate chest pain as above. (4) CKD (chronic kidney disease) stage 3, GFR 30-59 ml/min Is this a current diagnosis for this admission?: Yes Plan: We will avoid nephrotoxic medications. We will monitor with daily chemistries. (5) COPD exacerbation Is this a current diagnosis for this admission?: Yes Plan: Supplemental oxygen as required to maintain oxygen saturations greater than 88% Incentive spirometry and flutter valve to bedside. Duo nebs as needed. We will hold on steroid therapy for now. (6) JENNIE (obstructive sleep apnea) Is this a current diagnosis for this admission?: Yes Plan: CPAP to bedside. Patient is currently refusing; encourage use. (7) Tobacco abuse Is this a current diagnosis for this admission?: Yes Plan: Smoking cessation is encouraged; nicotine or placement therapy is offered. (8) Nonsustained ventricular tachycardia Is this a current diagnosis for this admission?: Yes Plan: No further episodes of chest pain or nonsustaining v. tach. Continue carvedilol 3.125 mg p.o. twice daily. Cardiology has been consulted; appreciate their evaluation recommendations. - Time Time Spent with patient: 25-34 minutes Medications reviewed and adjusted accordingly: Yes Anticipated discharge: Home Within: within 48 hours
[2018-03-07] MEDS: HYDROCODONE/ACETAMINOPHEN 5-325 MG TABLET PO PRN (21:21)
[2018-03-07] MEDS: DOXYCYCLINE HYCLATE 100 MG in NORMAL SALINE 250 ML IV SCH (21:25)
[2018-03-07] MEDS ORDERED: DOXYCYCLINE HYCLATE 100 MG in DEXTROSE 5%-WATER 250 ML IV SCH (22:00)
[2018-03-07] MEDS ORDERED: LINEZOLID 300 ML IV SCH (22:00)
[2018-03-08] MEDS: IPRATROPIUM/ALBUTEROL 0.5-2.5 MG/3 ML AMPUL NEB SCH ×4 (01:56→20:25)
[2018-03-08] MEDS: ACETAMINOPHEN 325 MG TABLET PO PRN (03:33)
[2018-03-08] MEDS: LANSOPRAZOLE 30 MG TAB.RAP.DR PO SCH (05:04)
[2018-03-08] MEDS: HEPARIN SOD (PORCINE) 5,000 UNIT/ML 1 ML SYRINGE SUBCUT SCH ×3 (05:35→21:09)
[2018-03-08] MEDS: CEFEPIME 1 GM/D5W RTU 1 GM/50 ML RTUPB IV SCH (05:35)
[2018-03-08 06:35] LABS: HEMATOCRIT 32.6 % (36.0-47.0); HEMOGLOBIN 10.6 g/dL (12.0-15.5); MEAN CORPUSCULAR HEMOGLOBIN 29.6 pg (27.0-33.4); MEAN CORPUSCULAR HGB CONC 32.6 g/dL (32.0-36.0); MEAN CORPUSCULAR VOLUME 91 fl (80-97); PLATELET COUNT 199 10^3/uL (150-450); RED BLOOD COUNT 3.59 10^6/uL (3.72-5.28); RED CELL DISTRIBUTION WIDTH 13.9 % (11.5-14.0); WHITE BLOOD COUNT 13.6 10^3/uL (4.0-10.5)
[2018-03-08 06:51] LABS: ANION GAP 8 (5-19); BLOOD UREA NITROGEN 48 mg/dL (7-20); CALCIUM 9.1 mg/dL (8.4-10.2); CARBON DIOXIDE 30 mmol/L (22-30); CHLORIDE 101 mmol/L (98-107); GLUCOSE 113 mg/dL (75-110); POTASSIUM 4.6 mmol/L (3.6-5.0); SODIUM 138.9 mmol/L (137-145)
--- NOTE | 2018-03-08 09:52 | XCELERA REPORT ---
[address] [address] Transthoracic Echocardiogram Report Name: GAVI PEDRO Age: 72 yrs Gender: Female : 1945 Patient Status: Inpatient Patient Location: [address] [place] [address] Study Date: 03/07/2018 08:37 AM Height: 62 in Weight: 157 lb BSA: 1.7 m2 Procedure: A complete two-dimensional transthoracic echocardiogram was performed (2D, M-mode, spectral and color flow Doppler). The study was technically difficult with many images being suboptimal in quality. Reason For Study: Dyspnea Ordering Physician: FRANCISCA SOMERS Performed By: Erin Hogan Interpretation Summary The study was technically difficult with many images being suboptimal in quality. The left ventricular ejection fraction is normal. There is mild concentric left ventricular hypertrophy. The left ventricle is grossly normal size. Doppler measurements suggest pseudonormalized left ventricular relaxation, which is associated with grade II/IV or mild to moderate diastolic dysfunction Wall motion cannot be accurately commented on, but no definite regional wall motion abnormalities noted. The right ventricle is mild to moderately dilated. The right ventricle appears to be hypertrophied The right ventricular systolic function is normal. There is a trace amount of mitral regurgitation There is no mitral valve stenosis. No aortic regurgitation is present. There is no aortic valve stenosis No tricuspid regurgitation. There is no tricuspid stenosis. There is no pericardial effusion. Doppler Measurements & Calculations MV E max xavier: MV dec slope: Ao V2 max: LV V1 max P.0 cm/sec 180.8 cm/sec 6.0 mmHg MV A max xavier: 198.9 cm/sec2 Ao max PG: LV V1 max: 136.1 cm/sec MV dec time: 13.1 mmHg 122.6 cm/sec MV E/A: 0.56 0.38 sec PA V2 max: 180.1 cm/sec PA max P.0 mmHg Left Ventricle The left ventricle is grossly normal size. There is mild concentric left ventricular hypertrophy. The left ventricular ejection fraction is normal. Doppler measurements suggest pseudonormalized left ventricular relaxation, which is associated with grade II/IV or mild to moderate diastolic dysfunction. Wall motion cannot be accurately commented on, but no definite regional wall motion abnormalities noted. Right Ventricle The right ventricle is mild to moderately dilated. The right ventricle appears to be hypertrophied. The right ventricular systolic function is normal. Atria Borderline right atrial enlargement. Borderline left atrial enlargement. Interarterial septum not well visualized and not well dopplered. Cannot comment on ASD/PFO presence. Mitral Valve There is mild mitral leaflet calcification. There is moderate mitral annular calcification. There is no mitral valve stenosis. There is a trace amount of mitral regurgitation. Aortic Valve The aortic valve is not well visualized secondary to technical limitations. There is no aortic valve stenosis. No aortic regurgitation is present. Tricuspid Valve The tricuspid valve is not well visualized secondary to technical limitations. There is no tricuspid stenosis. No tricuspid regurgitation. Pulmonic Valve The pulmonic valve is not well visualized. Great Vessels The aortic root is not well visualized. The inferior vena cava appeared normal and decreased > 50% with respiration (RAP 5-10 mmHg). Effusions There is no pericardial effusion. : FRANCISCA SOMERS > Francisca Somers
[2018-03-08] MEDS: GABAPENTIN 400 MG CAPSULE PO SCH ×2 (10:42→21:09)
[2018-03-08] MEDS: FLUTICASONE/SALMETEROL DISKUS 250-50 MCG/DOSE IH SCH (10:42)
[2018-03-08] MEDS: CARVEDILOL 3.125 MG TABLET PO SCH ×2 (10:42→21:09)
[2018-03-08] MEDS: FLUTICASONE NASAL SPRAY 50 MCG/SPRY 120 SPRAY/16 GM NASL SCH ×2 (10:42→21:09)
[2018-03-08] MEDS: ASPIRIN 81 MG TABLET, ENT COATED PO SCH (10:42)
[2018-03-08] MEDS: GUAIFENESIN 600 MG TABLET.SA PO SCH ×2 (10:42→21:07)
[2018-03-08] MEDS: LISINOPRIL 5 MG TABLET PO SCH (10:42)
[2018-03-08] MEDS: DOXYCYCLINE HYCLATE 100 MG in NORMAL SALINE 250 ML IV SCH ×2 (10:42→21:09)
[2018-03-08] MEDS: SUCRALFATE 1 GM TABLET PO SCH ×4 (10:42→21:09)
--- NOTE | 2018-03-08 12:58 | DRAGON STRESS TEST REPORT ---
INTRAVENOUS LEXISCAN CARDIOLITE STRESS TEST USING SINGLE PHOTON EMMISION COMPUTERIZED TOMOGRAPHIC. DATE OF PROCEDURE: March 08, 2018, INDICATION : Chest pain CARDIAC RISK FACTORS: Diabetes, hypertension RESTING EKG: Sinus rhythm with left bundle branch block pattern STRESS EKG: No significant ST segment changes noted with LexiScan bolus REASON FOR TERMINATION: Protocol. PROCEDURE REPORT: Baseline heart rate 68 beats per minute with blood pressure of 142/45. Patient had no significant complaints. Patient was bolused with Lexiscan 0.4 mg intravenously followed by saline bolus. Heart rate at 2 minutes post bolus 93 with a blood pressure of 136/65. 3 minutes post bolus heart rate 78 with blood pressure of 116/64. No significant EKG changes were noted. Patient had no significant complaints during the procedure or postprocedure. Patient injected with Aminophyllin 75 mg at 3 minutes or later after Lexiscan bolus. CONCLUSIONS: Normal EKG and hemodynamic response to IV LexiScan. NUCLEAR DATA: At rest the patient was given 13.63 millicuries of technetium 99 sestamibi injected intravenously. As per protocol rest gated SPECT images were obtained. On day of stress test, the patient was given intravenous LexiScan at a dose of 0.4 mg in 5 mL intravenously, followed by flush with normal saline. Subsequently the stress dose of 39.2 millicuries of technetium 99 sestamibi was injected intravenously. As per protocol stress gated images were obtained. NUCLEAR INTERPRETATION: Both raw and processed data were used for interpretation. Visual, qualitative, computer-generated quantitative data was used. There was good myocardial uptake of technetium compound. Motion artifact and soft tissue attenuations were noted. Significant breast attenuation artifact was noted. Increased visceral uptake was noted. No definitive areas of transient perfusion defect noted, No definitive areas of fixed perfusion defect or scars noted. EKG gated imaging showed LV EF at 45 %, rest and stress gated EF similar visually. T. I D. ratio was 1.25. Lung heart ratio noted to be within normal limits 0.32. No significant extracardiac and abnormal radiotracer activities were noted. RV free wall uptake was noted to be WNL. IMPRESSION: Also refer to comments under nuclear interpretation. Also test results needs to be interpreted in the context of pretest probability. 1. No definitive areas of transient perfusion defect noted. 2. There is no definitive scintigraphic evidence of myocardial infarction/scar. 3. EKG gated imaging shows left ventricular ejection fraction of approx. 45 %. 4. Clinical correlation requested as occasionally single vessel disease or balanced ischemia could be missed. In approximately 10% of the cases Lexiscan may not cause adequate vasodilatory stress. RECOMMENDATIONS: Aggressive risk factor modification and medical management. Further evaluation may be needed if continued symptoms or other high risk indicators are noted on clinical evaluation. Close cardiology follow-up is also recommended. Clinical correlation with echocardiogram derived ejection fraction. Inability to exercise by itself can lead to increased cardiovascular event risks. Consider cardiology consultation and or follow-up if clinically indicated. I am available for cardiology evaluation and consultation if requested by the dramatic teacher, unless patient already has a investigation clerk. MARYAM
[2018-03-08] MEDS: METHYLPREDNISOLONE INJ 40 MG/1 ML SDV IV SCH ×3 (13:36→23:07)
[2018-03-08] MEDS ORDERED: AMINOPHYLLINE INJ/PF 250 MG/10 ML SDV IV ONE (13:41)
[2018-03-08] MEDS ORDERED: REGADENOSON INJ 0.4 MG/5 ML DISP.SYRIN IV ONE (13:41)
--- NOTE | 2018-03-08 16:44 | RADIOLOGY REPORT (SQ) ---
EXAM DESCRIPTION: PICC INSERTION; FLUORO/CV PLACEMENT; U/S GUIDE FOR VASCULAR ACCESS COMPLETED DATE/TIME: 03/08/2018 4:34 pm REASON FOR STUDY: poor IV access; IV ACCESS COMPARISON: AP chest 03/03/2018 FLUOROSCOPY TIME: 9 seconds 1 digital fluoroscopic image and 1 ultrasound images saved to PACS. TECHNIQUE: Fluoroscopic and ultrasound guided PICC placement. LIMITATIONS: None. PROCEDURE: After written consent and assessment were obtained, the patient was brought into the fluo roscopy room and place supine on the table. Ultrasound was used on the patient's left arm for PICC a ccess. The left arm was prepped and draped in a sterile fashion along with the ultrasound probe. The entry site was anesthetized with 1% lidocaine. A 21 gauge 7 cm needle was advanced through the skin a nd into the basilic vein under live ultrasound guidance. An ultrasound image was saved to PACS confi rming access site. A .018 guide wire was then inserted through the needle and into the venous system . The needle was the removed and an 11 blade scalpel was used to make a 1cm skin incision. A 5 fr pe el-away sheath was advanced over the wire and into the venous system. A measurement was then made usi ng the existing wire and live fluoroscopic guidance. The wire was then removed and the trimmed. The P ICC was advanced through the peel-away sheath and into the venous system. The peel-away sheath was re moved and the catheter was adhered to the patients arm with a stat lock. The catheter was then aspira negro and flushed and a sterile bandage was placed over the access site. A fluoroscopic spot image was saved to PACS confirming the catheter tip within the superior vena cava. IMPRESSION: SUCCESSFUL PLACEMENT OF A 5 FR DUAL LUMEN 42 CM PICC IN THE LEFT BASILIC VEIN. COMMENT: Patient medication list reviewed: Yes- Quality ID# 130:Eligible professional attests to doc umenting in the medical record they obtained, updated, or reviewed the patient's current medications. . Quality ID 145: Final reports for procedures using fluoroscopy that document radiation exposure suzanne ari, or exposure time and number of fluorographic images (if radiation exposure indices are not avail able) Quality ID #76: The patient was prepped and draped using maximum sterile barrier technique including cap, mask, sterile gown, sterile gloves, a large sterile sheet, hand hygiene, and 2% Chlorhexidine fo r cutaneous antisepsis. When ultrasound is used, sterile ultrasound techniques are followed requiring sterile gel and sterile probes. TECHNICAL DOCUMENTATION: JOB ID: [id number] [employer]- All Rights Reserved Reading location - IP/workstation name: [facility]
[2018-03-08] MEDS ORDERED: NORMAL SALINE 10 ML SDV (AFTER EACH USE) IV PRN (16:51)
--- NOTE | 2018-03-08 17:04 | PDOC PROGRESS REPORT ---
Subjective Progress Note for:: 03/08/18 Subjective:: GAIV PEDRO is a 72 year old female with a PMH of L BBB, home oxygen dependent COPD, allergic sinusitis, GERD, osteoarthritis, diabetes, and obstructive sleep apnea with noncompliance who was admitted on 03/04/2018 with dyspnea and evidence of new left-sided pneumonia by CXR. The patient was seen this morning on rounds prior. She is resting in bed currently on supplemental oxygen at her baseline O2 requirement. Upon assessment, the patient had just completed a DuoNeb treatment, and stating that she continues to feel short of breath. Wheezing was noted in all lung blackmon. The patient denies chest pain, palpitations, fever, or chills. She is currently awaiting her cardiac stress test. Reason For Visit: CHEST PAIN COPD EXACERBATION JENNIE PNEUMONIA Physical Exam Vital Signs: Temp Pulse Resp BP Pulse Ox 98.4 F 77 17 142/64 H 97 03/08/18 15:23 03/08/18 15:23 03/08/18 15:23 03/08/18 15:23 03/08/18 15:23 Intake & Output 03/07/18 03/08/18 03/09/18 06:59 06:59 06:59 Intake Total 1510 2458 Output Total 2200 2000 Balance -690 458 Weight 86.1 kg 87.7 kg General appearance: PRESENT: no acute distress, obese Eye exam: PRESENT: conjunctiva pink, PERRLA Mouth exam: PRESENT: moist Neck exam: PRESENT: full ROM Respiratory exam: PRESENT: symmetrical, unlabored, wheezes Cardiovascular exam: PRESENT: +S1, +S2 Pulses: PRESENT: normal radial pulses, +1 pedal pulses bilateral GI/Abdominal exam: PRESENT: normal bowel sounds, soft. ABSENT: tenderness Rectal exam: PRESENT: deferred Extremities exam: PRESENT: full ROM Musculoskeletal exam: PRESENT: ambulatory, full ROM Neurological exam: PRESENT: alert, awake, oriented to person, oriented to place , oriented to time, oriented to situation, normal gait Psychiatric exam: PRESENT: appropriate affect Results Laboratory Results: 03/08/18 05:30 03/08/18 05:30 03/08/18 03/08/18 05:30 05:30 WBC 13.6 H RBC 3.59 L Hgb 10.6 L Hct 32.6 L MCV 91 MCH 29.6 MCHC 32.6 RDW 13.9 Plt Count 199 Sodium 138.9 Potassium 4.6 Chloride 101 Carbon Dioxide 30 Anion Gap 8 BUN 48 H Creatinine 1.15 Est GFR ( Amer) 56 L Est GFR (Non-Af Amer) 46 L Glucose 113 H Calcium 9.1 03/04/18 03/04/18 03/04/18 04:54 04:54 12:19 Creatine Kinase 37 CK-MB (CK-2) 1.54 Troponin I < 0.012 < 0.012 NT-Pro-B Natriuret Pep 03/07/18 05:01 Creatine Kinase CK-MB (CK-2) Troponin I NT-Pro-B Natriuret Pep 750 Impressions: Chest X-Ray 03/03/18 23:17 IMPRESSION: New small left basilar pneumonia-atelectasis. Status: Imported from PACS Assessment & Plan - Diagnosis (1) Left lower lobe pneumonia Qualifiers: Pneumonia type: due to unspecified organism Qualified Code(s): J18.1 - Lobar pneumonia, unspecified organism Is this a current diagnosis for this admission?: Yes Plan: Improved. Leukocytosis is trending down, patient remains afebrile, tachycardia has resolved, she is now ambulatory with only occasional minimal dyspnea. She is on her baseline O2 requirements. Chest x-ray revealed a left lower lobe pneumonia. Cultures have no growth to date. Admit to medical floor on continuous cardiac telemetry. Supplemental oxygen as required to maintain SPO2 > 88% CPAP nightly Duo neb treatments as needed Incentive spirometry at bedside Previous hospital was consulted ID, requested MRSA screening. Preliminary results negative. Continue cefepime No need for vancomycin or Zyvox, start doxycycline for antivirus activity and potential anti-inflammatory properties which may benefit underlying COPD. Recommend total of 7 days, patient is currently on day #4 (2) Chest pain Qualifiers: Chest pain type: unspecified Qualified Code(s): R07.9 - Chest pain, unspecified Is this a current diagnosis for this admission?: Yes Plan: Resolved. No further episodes. Chest pain likely to be pleuritic in nature she is currently admitted with left lower lobe pneumonia and COPD exacerbation. However the patient does have multiple risk factors including obesity, diabetes , HTN, HLD, JENNIE, medication compliance, previous MT, and left bundle branch block. Serial troponins are negative, no longer trending. Echocardiogram has been completed, shows grade 2 diastolic dysfunction, RVH, trace MR. Nuclear stress test completed this morning, report pending. Cardiology has been consulted, appreciate their recommendations. (3) COPD exacerbation Is this a current diagnosis for this admission?: Yes Plan: Supplemental oxygen as required to maintain SPO2>88% Incentive spirometry and flutter valve at bedside Duo nebs as needed Wheezing auscultated in all lung blackmon this morning, initiated IV Solu-Medrol 60 mg every 6 hours. (4) CKD (chronic kidney disease) stage 3, GFR 30-59 ml/min Is this a current diagnosis for this admission?: Yes Plan: Avoid nephrotoxic medications. Monitor daily chemistries (5) JENNIE (obstructive sleep apnea) Is this a current diagnosis for this admission?: Yes Plan: CPAP at bedside. Patient has been refusing, encourage use. (6) Tobacco abuse Is this a current diagnosis for this admission?: Yes Plan: Smoking cessation is encouraged. Nicotine replacement therapy is offered. (7) Nonsustained ventricular tachycardia Is this a current diagnosis for this admission?: Yes Plan: No further episodes of chest pain or nonsustained V. Tach Continue carvedilol 3.125 mg p.o. twice daily Cardiology has been consulted, appreciate their recommendations - Time Time Spent with patient: 15-24 minutes Medications reviewed and adjusted accordingly: Yes Anticipated discharge: Home Within: within 72 hours - Inpatient Certification Based on my medical assessment, after consideration of the patient's comorbidities, presenting symptoms, or acuity I expect that the services needed warrant INPATIENT care.: Yes I certify that my determination is in accordance with my understanding of Medicare's requirements for reasonable and necessary INPATIENT services [42 CFR 412.3e].: Yes Medical Necessity: Risk of Complication if Not Cared For in Hospital - Plan Summary Plan Summary: Plan for cardiac stress test today. Need to optimize respiratory status prior to discharge home.
[2018-03-08] MEDS: NORMAL SALINE 10 ML SDV (SCHEDULED) IV SCH (21:09)
[2018-03-08] MEDS: HYDROCODONE/ACETAMINOPHEN 5-325 MG TABLET PO PRN (21:09)
[2018-03-08] MEDS: INSULIN LISPRO 100 UNIT/ML 3 ML VIAL SUBCUT PRN (23:07)
[2018-03-09] MEDS: IPRATROPIUM/ALBUTEROL 0.5-2.5 MG/3 ML AMPUL NEB SCH ×3 (02:10→13:46)
[2018-03-09] MEDS: HEPARIN SOD (PORCINE) 5,000 UNIT/ML 1 ML SYRINGE SUBCUT SCH (05:05)
[2018-03-09] MEDS: LANSOPRAZOLE 30 MG TAB.RAP.DR PO SCH (05:44)
[2018-03-09] MEDS: METHYLPREDNISOLONE INJ 40 MG/1 ML SDV IV SCH (05:44)
[2018-03-09] MEDS: CEFEPIME 1 GM/D5W RTU 1 GM/50 ML RTUPB IV SCH (05:44)
[2018-03-09] MEDS: INSULIN LISPRO 100 UNIT/ML 3 ML VIAL SUBCUT PRN (07:51)
[2018-03-09] MEDS: SUCRALFATE 1 GM TABLET PO SCH (07:51)
[2018-03-09] MEDS: ACETAMINOPHEN 325 MG TABLET PO PRN (07:51)
[2018-03-09] MEDS: DOXYCYCLINE HYCLATE 100 MG in NORMAL SALINE 250 ML IV SCH (09:25)
[2018-03-09] MEDS: FLUTICASONE/SALMETEROL DISKUS 250-50 MCG/DOSE IH SCH (09:29)
[2018-03-09] MEDS: LISINOPRIL 5 MG TABLET PO SCH (09:29)
[2018-03-09] MEDS: CARVEDILOL 3.125 MG TABLET PO SCH (09:29)
[2018-03-09] MEDS: GABAPENTIN 400 MG CAPSULE PO SCH (09:29)
[2018-03-09] MEDS: FLUTICASONE NASAL SPRAY 50 MCG/SPRY 120 SPRAY/16 GM NASL SCH (09:29)
[2018-03-09] MEDS: ASPIRIN 81 MG TABLET, ENT COATED PO SCH (09:29)
[2018-03-09] MEDS: GUAIFENESIN 600 MG TABLET.SA PO SCH (09:29)
[2018-03-09] MEDS: NORMAL SALINE 10 ML SDV (SCHEDULED) IV SCH (09:30)
[2018-03-09 13:37] VITALS: BP 144/53
--- NOTE | 2018-03-09 20:36 | PDOC PROGRESS REPORT ---
Subjective Progress Note for:: 03/08/18 Subjective:: Telemetry strips were reviewed. No further runs of V. tach noted. It was only noted once. Today patient underwent nuclear stress test without any complications. Patient seems to be doing better with gradual improvement. Pt is denying any chest arm or neck discomfort. Patient denying any PND, orthopnea. Patient denied any sustained palpitations, dizziness, syncope, near syncope. Patient denying any fever chills. Patient denying any other significant discomfort. Patient is maintaining sinus rhythm. No further episodes of nonsustained ventricular tachycardia noted. Cardiac enzymes came back negative. Review of systems: Rest review of systems negative. Medications: Medications have been reviewed. Reason For Visit: CHEST PAIN COPD EXACERBATION JENNIE PNEUMONIA Physical Exam Vital Signs: Temp Pulse Resp BP Pulse Ox 98.4 F 77 17 142/64 H 97 03/08/18 15:23 03/08/18 15:23 03/08/18 15:23 03/08/18 15:23 03/08/18 15:23 Intake & Output 03/07/18 03/08/18 03/09/18 06:59 06:59 06:59 Intake Total 1510 2458 1189 Output Total 2200 2000 Balance -706 989 7481 Weight 86.1 kg 87.7 kg Exam: GENERAL: well-nourished and in no acute distress. Alert and oriented x3 HEAD: Atraumatic, normocephalic. EYES: Pupils equal round and reactive to light, extraocular movements intact, sclera anicteric, conjunctiva are normal. ENT: TMs normal, nares patent, oropharynx clear without exudates. Moist mucous membranes. No oral ulcerations or bleeding gums noted NECK: supple without lymphadenopathy. Trachea is central. No cervical or axillary lymphadenopathy noted. Carotids are 2+, JVD WNL LUNGS: Respiration seems nonlabored, no significant accessory muscle action noted. Few bibasilar fine crackles and coarse wheezes rales or rhonchi noted. No significant dullness noted on percussion. CHEST: Palpation of the chest wall shows no significant chest wall tenderness. No other significant abnormalities noted. 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 ABDOMEN: Soft, no significant tenderness appreciated, normoactive bowel sounds. No guarding, no rebound. No rigidity noted . No masses appreciated. EXTREMITIES: Pedal pulses are 1-2+, no calf tenderness noted. No clubbing or cyanosis. Trace to 1+ pedal edema noted NEUROLOGICAL: Focused neurological exam showed no significant neurologic deficit. Normal speech, no focal weakness appreciated. PSYCH: Normal mood, normal affect. Judgment and insight within normal limits. SKIN: No significant ecchymosis, skin is noted to be warm. MUSCULOSKELETAL EXAM: No significant acute joint swelling noted. Results Laboratory Results: 03/08/18 05:30 03/08/18 05:30 03/08/18 03/08/18 05:30 05:30 WBC 13.6 H RBC 3.59 L Hgb 10.6 L Hct 32.6 L MCV 91 MCH 29.6 MCHC 32.6 RDW 13.9 Plt Count 199 Sodium 138.9 Potassium 4.6 Chloride 101 Carbon Dioxide 30 Anion Gap 8 BUN 48 H Creatinine 1.15 Est GFR ( Amer) 56 L Est GFR (Non-Af Amer) 46 L Glucose 113 H Calcium 9.1 03/04/18 03/04/18 03/04/18 04:54 04:54 12:19 Creatine Kinase 37 CK-MB (CK-2) 1.54 Troponin I < 0.012 < 0.012 NT-Pro-B Natriuret Pep 03/07/18 05:01 Creatine Kinase CK-MB (CK-2) Troponin I NT-Pro-B Natriuret Pep 750 EKG Comments: Telemetry shows sinus rhythm with left bundle branch block pattern. No significant cardiac dysrhythmia noted. Impressions: Chest X-Ray 03/03/18 23:17 IMPRESSION: New small left basilar pneumonia-atelectasis. Guidance Fluoroscopy 03/08/18 00:00 IMPRESSION: SUCCESSFUL PLACEMENT OF A 5 FR DUAL LUMEN 42 CM PICC IN THE LEFT BASILIC VEIN. Interventional Vascular Procedure 03/08/18 00:00 IMPRESSION: SUCCESSFUL PLACEMENT OF A 5 FR DUAL LUMEN 42 CM PICC IN THE LEFT BASILIC VEIN. PICC Line Insertion 03/08/18 00:00 IMPRESSION: SUCCESSFUL PLACEMENT OF A 5 FR DUAL LUMEN 42 CM PICC IN THE LEFT BASILIC VEIN. Assessment & Plan - Diagnosis (1) Nonsustained ventricular tachycardia Is this a current diagnosis for this admission?: Yes (2) Chest pain Qualifiers: Chest pain type: unspecified Qualified Code(s): R07.9 - Chest pain, unspecified Is this a current diagnosis for this admission?: Yes (3) Left lower lobe pneumonia Qualifiers: Pneumonia type: due to unspecified organism Qualified Code(s): J18.1 - Lobar pneumonia, unspecified organism Is this a current diagnosis for this admission?: Yes (4) Acute and chronic respiratory failure ([id number]) Qualifiers: Respiratory failure complication: unspecified whether with hypoxia or hypercapnia Qualified Code(s): J96.20 - Acute and chronic respiratory failure , unspecified whether with hypoxia or hypercapnia Is this a current diagnosis for this admission?: Yes (5) COPD exacerbation Is this a current diagnosis for this admission?: Yes - Notes Notes: 2D echo results reviewed. Patient tolerating low-dose beta-elise. Nuclear stress test performed and the results were reviewed. Nonsustained ventricular tachycardia: 2D echo shows normal LVEF and nuclear stress test negative for ischemia, therefore overall low risk for any dangerous ventricular arrhythmia recurrence. Will try maintain electrolytes within normal limits. Consider reducing beta-2 stimulants. Patient started on beta- elise with which I agree. Chest pain: Patient has underlying left bundle branch block pattern. Nuclear stress test suggest that cardiac etiology being unlikely. Left lower lobe pneumonia: Continue antibiotic therapy. Acute on chronic respiratory failure: Patient has significant underlying COPD. Continue proper management. May consider pulmonary evaluation. COPD exacerbation: Patient being well managed at this point. Obesity: Patient will benefit from weight loss. - Time Time with patient: Greater than 35 minutes - Patient was seen multiple times. Total time exceeds 40 minutes. In the morning nuclear stress test procedure, risks benefits, alternatives were discussed. Patient seen during the stress test. Patient also seen after stress test when results were discussed with the patient in detail. Patient's questions were answered. Nuclear stress test results were discussed with the patient. Patient was informed that no definitive evidence of pharmacologic stress-induced ischemia noted. No definite fixed defects were noted. Patient informed that occasionally significant single vessel disease or balanced ischemia could be missed. However based on the current study results, would recommend aggressive risk factor modification and medical therapy. It may also be worthwhile to consider evaluation or empiric management of other causes of chest pain. Should no other cause be found and if persistent in having chest pain, then cardiac catheterization should be considered. Right now, recommendations are for aggressive risk factor modification and medical management. CODE STATUS was discussed, patient remains full code. Surrogate decision-maker unchanged. Multiple medical problems were addressed. More than 50% of the time spent coordinating care, discussing management plans with involved caregivers. Management plans discussed with involved personnels. Medical decision making was of moderate to high complexity, patient's has multiple comorbidities. Medications reviewed and adjusted accordingly: Yes
--- NOTE | 2018-03-09 20:39 | PDOC PROGRESS REPORT ---
Subjective Progress Note for:: 03/09/18 Subjective:: Patient seen on morning rounds. Telemetry strips were reviewed. No further runs of V. tach noted. It was only noted once. Nuclear stress test results and 2D echocardiogram results were again reviewed with the patient. No medication changes are performed. Patient seems to be doing better with gradual improvement. Pt is denying any chest arm or neck discomfort. Patient denying any PND, orthopnea. Patient denied any sustained palpitations, dizziness, syncope, near syncope. Patient denying any fever chills. Patient denying any other significant discomfort. Patient is maintaining sinus rhythm. No further episodes of nonsustained ventricular tachycardia noted. Review of systems: Rest review of systems negative. Medications: Medications have been reviewed. Reason For Visit: CHEST PAIN COPD EXACERBATION JENNIE PNEUMONIA Physical Exam Vital Signs: Temp Pulse Resp BP Pulse Ox 98.0 F 76 20 144/53 H 95 03/09/18 13:22 03/09/18 13:22 03/09/18 13:22 03/09/18 13:22 03/09/18 13:22 Intake & Output 03/08/18 03/09/18 03/10/18 06:59 06:59 06:59 Intake Total 2458 1988 Output Total 1999 Balance 458 1988 Weight 87.7 kg Exam: GENERAL: well-nourished and in no acute distress. Alert and oriented x3 HEAD: Atraumatic, normocephalic. EYES: Pupils equal round and reactive to light, extraocular movements intact, sclera anicteric, conjunctiva are normal. ENT: TMs normal, nares patent, oropharynx clear without exudates. Moist mucous membranes. No oral ulcerations or bleeding gums noted NECK: supple without lymphadenopathy. Trachea is central. No cervical or axillary lymphadenopathy noted. Carotids are 2+, JVD WNL LUNGS: Respiration seems nonlabored, no significant accessory muscle action noted. Few scattered wheezes rales or rhonchi noted. No significant dullness noted on percussion. CHEST: Palpation of the chest wall shows no significant chest wall tenderness. No other significant abnormalities noted. 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 ABDOMEN: Soft, no significant tenderness appreciated, normoactive bowel sounds. No guarding, no rebound. No rigidity noted . No masses appreciated. EXTREMITIES: Pedal pulses are 1-2+, no calf tenderness noted. No clubbing or cyanosis. Trace to 1+ pedal edema noted NEUROLOGICAL: Focused neurological exam showed no significant neurologic deficit. Normal speech, no focal weakness appreciated. PSYCH: Normal mood, normal affect. Judgment and insight within normal limits. SKIN: No significant ecchymosis, skin is noted to be warm. MUSCULOSKELETAL EXAM: No significant acute joint swelling noted. Results Laboratory Results: 03/08/18 05:30 03/08/18 05:30 03/07/18 16:11 Nasophary (Mrsa Only) MRSA Surveillance Culture - Final NO MRSA RECOVERED 03/04/18 04:50 Blood Blood Culture - Final NO GROWTH IN 5 DAYS 03/04/18 04:54 Blood Blood Culture - Final NO GROWTH IN 5 DAYS 03/04/18 03/04/18 03/04/18 04:54 04:54 12:19 Creatine Kinase 37 CK-MB (CK-2) 1.54 Troponin I < 0.012 < 0.012 NT-Pro-B Natriuret Pep 03/07/18 05:01 Creatine Kinase CK-MB (CK-2) Troponin I NT-Pro-B Natriuret Pep 750 EKG Comments: Telemetry strip shows sinus rhythm with left bundle branch block pattern. Impressions: Chest X-Ray 03/03/18 23:17 IMPRESSION: New small left basilar pneumonia-atelectasis. Guidance Fluoroscopy 03/08/18 00:00 IMPRESSION: SUCCESSFUL PLACEMENT OF A 5 FR DUAL LUMEN 42 CM PICC IN THE LEFT BASILIC VEIN. Interventional Vascular Procedure 03/08/18 00:00 IMPRESSION: SUCCESSFUL PLACEMENT OF A 5 FR DUAL LUMEN 42 CM PICC IN THE LEFT BASILIC VEIN. PICC Line Insertion 03/08/18 00:00 IMPRESSION: SUCCESSFUL PLACEMENT OF A 5 FR DUAL LUMEN 42 CM PICC IN THE LEFT BASILIC VEIN. Assessment & Plan - Diagnosis (1) Nonsustained ventricular tachycardia Is this a current diagnosis for this admission?: Yes (2) Chest pain Qualifiers: Chest pain type: unspecified Qualified Code(s): R07.9 - Chest pain, unspecified Is this a current diagnosis for this admission?: Yes (3) Left lower lobe pneumonia Qualifiers: Pneumonia type: due to unspecified organism Qualified Code(s): J18.1 - Lobar pneumonia, unspecified organism Is this a current diagnosis for this admission?: Yes (4) Acute and chronic respiratory failure ([id number]) Qualifiers: Respiratory failure complication: unspecified whether with hypoxia or hypercapnia Qualified Code(s): J96.20 - Acute and chronic respiratory failure , unspecified whether with hypoxia or hypercapnia Is this a current diagnosis for this admission?: Yes (5) COPD exacerbation Is this a current diagnosis for this admission?: Yes - Notes Notes: Nonsustained ventricular tachycardia: Low likelihood of recurrence of any dangerous ventricular dysrhythmia because of normal stress test and 2D echocardiogram showing normal LVEF. Continue with beta-elise therapy. Chest pain: Resolved. Patient has underlying left bundle branch block pattern. Nuclear stress test negative for ischemia. Left lower lobe pneumonia: Continue antibiotic therapy. Seems improved. Acute on chronic respiratory failure: Patient has significant underlying COPD. Continue proper management. May consider pulmonary evaluation. COPD exacerbation: Patient being well managed at this point. Obesity: Patient will benefit from weight loss. Will sign off from cardiac standpoint. Please reconsult if needed. - Time Time with patient: 15-25 minutes - More than 50% of the time spent coordinating care, discussing management plans with involved caregivers. Management plans discussed with involved personnels. Medical decision making was of moderate to high complexity, patient's has multiple comorbidities. Medications reviewed and adjusted accordingly: Yes
== END 2018-03-09 14:30 | disposition home or self-care (01) | DRG 193 ==
LOC: ER 23:11 → EH 03-04 02:48 → 4W 03-04 04:15
PROVIDERS: ADMIT Internal Medicine; ATTEND Internal Medicine
PROC: 02HV33Z Insertion of Infusion Device into Superior Vena Cava, Percutaneous Approach (ICD-10-PCS; principal; 2018-03-08)
PROC: B518ZZA Fluoroscopy of Superior Vena Cava, Guidance (ICD-10-PCS; 2018-03-08)
PROC: B548ZZA Ultrasonography of Superior Vena Cava, Guidance (ICD-10-PCS; 2018-03-08)
DX: J18.1 Lobar pneumonia, unspecified organism (principal); J96.20 Acute and chronic respiratory failure, unspecified whether with hypoxia or hypercapnia; N17.9 Acute kidney failure, unspecified; I13.0 Hypertensive heart and chronic kidney disease with heart failure and stage 1 through stage 4 chronic kidney disease, or unspecified chronic kidney disease; J44.1 Chronic obstructive pulmonary disease with (acute) exacerbation; E11.22 Type 2 diabetes mellitus with diabetic chronic kidney disease; N18.3 Chronic kidney disease, stage 3 (moderate); I25.10 Atherosclerotic heart disease of native coronary artery without angina pectoris; M19.90 Unspecified osteoarthritis, unspecified site; D64.9 Anemia, unspecified; I44.7 Left bundle-branch block, unspecified; R00.0 Tachycardia, unspecified; G47.33 Obstructive sleep apnea (adult) (pediatric); R07.9 Chest pain, unspecified; F17.210 Nicotine dependence, cigarettes, uncomplicated; Z99.81 Dependence on supplemental oxygen; Z86.718 Personal history of other venous thrombosis and embolism
CPT/HCPCS: 36415; 36569; 71045; 76937; 77001; 78452; 80048; 80053; 80202; 81001; 82550; 82553; 82962; 83735; 83880; 84484; 85025; 85027; 87040; 93005; 93010; 93017; 93306; 94660; 94799; 99285; A9500; J0280; J0360; J0692; J1642; J1644; J1815; J1940; J2785; J2920; J3370; J3490; J7030; J7050; J7060; J7620; Q9969

== ENCOUNTER 2018-03-23 22:08 | Inpatient (IN) | payer MEDICARE ==
--- NOTE | 2018-03-23 22:51 | RADIOLOGY REPORT (SQ) ---
EXAM DESCRIPTION: CHEST SINGLE VIEW COMPLETED DATE/TIME: 03/23/2018 10:33 pm REASON FOR STUDY: difficulty breathing COMPARISON: 03/03/2018 EXAM PARAMETERS: NUMBER OF VIEWS: One view. TECHNIQUE: Single frontal radiographic view of the chest acquired. RADIATION DOSE: NA LIMITATIONS: None. FINDINGS: LUNGS AND PLEURA: No consolidation, masses or pneumothorax. No pleural effusion. MEDIASTINUM AND HILAR STRUCTURES: Stable. HEART AND VASCULAR STRUCTURES: Heart normal in size. Normal vasculature. BONES: No acute findings. HARDWARE: None in the chest. OTHER: No other significant finding. IMPRESSION: NO ACUTE RADIOGRAPHIC FINDING IN THE CHEST. TECHNICAL DOCUMENTATION: JOB ID: [id number] [employer]- All Rights Reserved Reading location - IP/workstation name: [employer]
[2018-03-23 22:55] LABS: ABSOLUTE BASOPHILS # (AUTO) 0.1 10^3/uL (0.0-0.2); ABSOLUTE EOSINOPHILS # (AUTO) 0.2 10^3/uL (0.0-0.6); ABSOLUTE LYMPHOCYTES (AUTO) 2.3 10^3/uL (0.5-4.7); ABSOLUTE MONOCYTES (AUTO) 0.7 10^3/uL (0.1-1.4); ABSOLUTE NEUT (AUTO) 8.7 10^3/uL (1.7-8.2); BASOPHILS % (AUTO) 0.5 % (0-2); EOSINOPHILS % (AUTO) 1.4 % (0-6); HEMATOCRIT 33.3 % (36.0-47.0); HEMOGLOBIN 10.8 g/dL (12.0-15.5); LYMPHOCYTES % (AUTO) 19.1 % (13-45); MEAN CORPUSCULAR HEMOGLOBIN 29.8 pg (27.0-33.4); MEAN CORPUSCULAR HGB CONC 32.4 g/dL (32.0-36.0); MEAN CORPUSCULAR VOLUME 92 fl (80-97); MONOCYTES % (AUTO) 5.9 % (3-13); PLATELET COUNT 214 10^3/uL (150-450); RED BLOOD COUNT 3.62 10^6/uL (3.72-5.28); RED CELL DISTRIBUTION WIDTH 13.9 % (11.5-14.0); SEGMENTED NEUTROPHILS % (AUTO) 73.1 % (42-78); TOTAL CELLS COUNTED % (AUTO) 100 %; WHITE BLOOD COUNT 11.9 10^3/uL (4.0-10.5)
--- NOTE | 2018-03-23 23:05 | ER Document Report ---
ED General - General Chief Complaint: Shortness Of Breath Stated Complaint: DIFFICULTY BREATHING Time Seen by Provider: 03/23/18 23:04 Notes: 72-year-old female patient history of diabetes, hypertension, CHF, COPD. Wears oxygen. Recent hospitalization. States that her breathing was getting worse. Called EMS. Easily wears CPAP at night. Received Ancef and Solu-Medrol. Patient feeling a lot better at this time but still a little short of breath. Denies any chest pain at this time. Denies any pain in legs. Denies any reviewed previous blood clots. Denies any fever, chills, sweats or other issues at this time. Does continue to smoke. TRAVEL OUTSIDE OF THE [place] IN LAST 30 DAYS: No - HPI Onset: Yesterday Onset/Duration: Gradual, Worse Quality of pain: No pain - Related Data Allergies/Adverse Reactions: ibuprofen [From Motrin] Allergy (Intermediate, Verified 10/12/17 10:13) RASH/UTICARTIA Past Medical History - General Information source: Patient - Social History Smoking Status: Current Every Day Smoker Cigarette use (# per day): Yes Chew tobacco use (# tins/day): No Frequency of alcohol use: None Drug Abuse: None Lives with: Alone Family History: Hypertension Patient has suicidal ideation: No Patient has homicidal ideation: No - Past Medical History Cardiac Medical History: Reports: Hx Congestive Heart Failure, Hx Coronary Artery Disease, Hx DVT, Hx Hypertension Denies: Hx Heart Attack, Hx Heart Murmur Pulmonary Medical History: Reports: Hx Asthma, Hx COPD Denies: Hx Respiratory Failure, Hx Sleep Apnea, Hx Tuberculosis Neurological Medical History: Denies: Hx Cerebrovascular Accident, Hx Seizures Endocrine Medical History: Reports: Hx Diabetes Mellitus Type 2 Renal/ Medical History: Reports: Hx Renal Insufficiency. Denies: Hx Peritoneal Dialysis GI Medical History: Reports: Hx Diverticulitis, Hx Gastroesophageal Reflux Disease. Denies: Hx Hepatitis, Hx Hiatal Hernia, Hx Pancreatitis, Hx Ulcer - ? Musculoskeltal Medical History: Reports Hx Arthritis Psychiatric Medical History: Denies: Hx Depression Traumatic Medical History: Reports: Hx Fractures - several broken ribs Infectious Medical History: Denies: Hx Hepatitis Past Surgical History: Reports: Hx Appendectomy, Hx Cholecystectomy, Hx Herniorrhaphy, Hx Hysterectomy, Hx Orthopedic Surgery - rotator cuff. Denies: Hx Mastectomy, Hx Open Heart Surgery, Hx Pacemaker - Immunizations Immunizations up to date: Yes Hx Diphtheria, Pertussis, Tetanus Vaccination: No Hx Pneumococcal Vaccination: 08/30/14 Review of Systems - Review of Systems Constitutional: No symptoms reported EENT: No symptoms reported Cardiovascular: Dyspnea. denies: Chest pain, Palpitations, Heart racing Respiratory: Cough, Short of breath, Wheezing Gastrointestinal: No symptoms reported Genitourinary: No symptoms reported Female Genitourinary: No symptoms reported Musculoskeletal: No symptoms reported Skin: No symptoms reported Hematologic/Lymphatic: No symptoms reported Neurological/Psychological: No symptoms reported Physical Exam - Vital signs Vitals: Temp Pulse Resp BP Pulse Ox 97.5 F 70 23 H 126/86 H 94 03/23/18 22:09 03/23/18 22:09 03/23/18 22:09 03/23/18 22:09 03/23/18 22:09 Interpretation: Normal - General General appearance: Appears well, Alert - HEENT Head: Normocephalic, Atraumatic Eyes: Normal Pupils: PERRL - Respiratory Respiratory status: No respiratory distress Chest status: Nontender Breath sounds: Normal Chest palpation: Normal - Cardiovascular Rhythm: Regular Heart sounds: Normal auscultation Murmur: No - Abdominal Inspection: Normal Distension: No distension Bowel sounds: Normal Tenderness: Nontender Organomegaly: No organomegaly - Back Back: Normal, Nontender - Extremities General upper extremity: Normal inspection, Nontender, Normal color, Normal ROM , Normal temperature General lower extremity: Normal inspection, Nontender, Normal color, Normal ROM , Normal temperature, Normal weight bearing. No: Mateus's sign - Neurological Neuro grossly intact: Yes Cognition: Normal Orientation: AAOx4 Eve Coma Scale Eye Opening: Spontaneous Eve Coma Scale Verbal: Oriented Eve Coma Scale Motor: Obeys Commands Eve Coma Scale Total: 15 Speech: Normal Motor strength normal: LUE, RUE, LLE, RLE Sensory: Normal - Psychological Associated symptoms: Normal affect, Normal mood - Skin Skin Temperature: Warm Skin Moisture: Dry Skin Color: Normal Course - Re-evaluation Re-evalutation: 03/24/18 00:37 Patient's oxygen level is 92% on 3 L of oxygen. Patient wears 3 L of oxygen at home. No significant wheezing. Will give a second breathing treatment. Patient artery had Solu-Medrol. Will treat as a COPD exacerbation. Appears to have slightly elevated BNP but definitely not worse BNP has recorded. Chest x- ray does not show significant signs of failure. 03/24/18 00:51 She feeling a little bit better. When asked whether or not she feels good enough to go home she denies that. She states that she feels like she needs to be admitted to the hospital. Definitely is requiring oxygen. Did treat with some Lasix, breathing treatments, Solu-Medrol. Will consult with hospitalist for possible admit at this time. - Vital Signs Vital signs: Temp Pulse Resp BP Pulse Ox 97.5 F 70 26 H 143/76 H 92 03/23/18 22:09 03/23/18 22:09 03/24/18 00:31 03/24/18 00:31 03/24/18 00:31 - Laboratory Result Diagrams: 03/23/18 22:10 03/23/18 22:10 Laboratory results interpreted by me: 03/23/18 03/23/18 03/23/18 22:10 22:10 22:10 WBC 11.9 H RBC 3.62 L Hgb 10.8 L Hct 33.3 L Absolute Neutrophils 8.7 H Carbon Dioxide 32 H BUN 22 H Est GFR ( Amer) 58 L Est GFR (Non-Af Amer) 48 L Glucose 133 H NT-Pro-B Natriuret Pep 992 H - EKG Interpretation by Me Rate: Normal Cougar/QRS: Left axis deviation, LBBB When compared to previous EKG there are: No significant change Discharge - Discharge Clinical Impression: COPD exacerbation Congestive heart failure Qualifiers: Heart failure type: unspecified Heart failure chronicity: chronic Qualified Code(s): I50.9 - Heart failure, unspecified Disposition: ADMITTED INPATIENT Admitting Provider: Hospitalist - [facility] Unit Admitted: Telemetry Referrals: KYLE NIETO MD [Primary Care Provider] - Follow up as needed
[2018-03-23 23:11] LABS: ALANINE AMINOTRANSFERASE 17 U/L (9-52); ALBUMIN 3.5 g/dL (3.5-5.0); ALKALINE PHOSPHATASE 105 U/L (38-126); ANION GAP 9 (5-19); ASPARTATE AMINO TRANSFERASE 18 U/L (14-36); BILIRUBIN,DIRECT 0.3 mg/dL (0.0-0.4); BILIRUBIN,TOTAL 0.3 mg/dL (0.2-1.3); BLOOD UREA NITROGEN 22 mg/dL (7-20); CARBON DIOXIDE 32 mmol/L (22-30); CHLORIDE 103 mmol/L (98-107); CREATINE KINASE 35 U/L (30-135); GLUCOSE 133 mg/dL (75-110); SODIUM 143.6 mmol/L (137-145); TOTAL PROTEIN 6.3 g/dL (6.3-8.2)
[2018-03-23] MEDS ORDERED: IPRATROPIUM/ALBUTEROL 0.5-2.5 MG/3 ML AMPUL NEB ONE (23:11)
[2018-03-23 23:22] LABS: POTASSIUM 4.4 mmol/L (3.6-5.0)
[2018-03-23 23:38] LABS: CREATINE KINASE MB 0.72 ng/mL (<4.55); NT PRO BNP 992 pg/mL (5-900)
[2018-03-23 23:39] LABS: TROPONIN I < 0.012 ng/mL
[2018-03-23] MEDS ORDERED: CEFTRIAXONE INJ 1000 MG VIAL IV ONE (23:46)
[2018-03-23] MEDS ORDERED: FUROSEMIDE INJ/PF 40 MG/4 ML SDV IV ONE (23:46)
[2018-03-24] MEDS ORDERED: AZITHROMYCIN INJ 500 MG VIAL IV ONE (01:08)
[2018-03-24] MEDS ORDERED: ACETAMINOPHEN 325 MG TABLET PO PRN (01:22)
[2018-03-24] MEDS ORDERED: ONDANSETRON HCL INJ/PF 4 MG/2 ML SDV IV PRN (01:22)
[2018-03-24] MEDS ORDERED: BUDESONIDE/FORMOTEROL 160-4.5 MCG 60 PUFF/6 GM MDI IH ONE (02:34)
--- NOTE | 2018-03-24 02:34 | PDOC H&P ---
History of Present Illness Admission Date/PCP: 03/24/18 01:19 KYLE NIETO MD History of Present Illness: GAVI PEDRO is a 72 year old female patient with multiple comorbidities including JENNIE, DM, HTN, CHF, HLD, COPD and end-stage lung disease requiring oxygen / brought by EMS for shortness of breath. By the time EMS arrived to her home patient desaturates in the lower 80s while she was on oxygen. She was given a dose of steroid and breathing treatment en route to hospital. Of note patient is a frequent flyer for the same problem. Her labs are unremarkable except mild elevation of BNP and a chest x-ray reported no acute findings. Despite having end-stage renal disease patient is active heavy smoker. Patient denied any chest pain, fever palpitation or diaphoresis. No nausea, vomiting, abdominal pain or change in bowel habit. No urinary complaints. Past Medical History Cardiac Medical History: Reports: Congestive Heart Failure, Coronary Artery Disease, DVT, Hypertension Denies: Myocardial Infarction, Heart Murmur Pulmonary Medical History: Reports: Asthma, Chronic Obstructive Pulmonary Disease (COPD) Denies: Respiratory Failure, Sleep Apnea, Tuberculosis Neurological Medical History: Denies: Seizures Endocrine Medical History: Reports: Diabetes Mellitus Type 2 GI Medical History: Reports: Diverticulitis, Gastroesophageal Reflux Disease Denies: Hepatitis, Hiatal Hernia Musculoskeltal Medical History: Reports: Arthritis Psychiatric Medical History: Denies: Depression Hematology: Reports: Anemia - TAKE IRON SOMETIMES Denies: Hemophilia, Sickle Cell Disease Past Surgical History Past Surgical History: Reports: Appendectomy, Cholecystectomy, Herniorrhaphy, Hysterectomy, Orthopedic Surgery - rotator cuff Denies: Amputation, Mastectomy, Pacemaker Social History Lives with: Alone Smoking Status: Current Every Day Smoker Frequency of Alcohol Use: None Hx Recreational Drug Use: No Drugs: None Hx Prescription Drug Abuse: No Family History Family History: Hypertension Parental Family History Reviewed: Yes Children Family History Reviewed: Yes Sibling(s) Family History Reviewed.: Yes Medication/Allergy Home Medications: Aspirin [Aspirin EC] 81 mg PO DAILY 03/04/18 Cetirizine HCl [Zyrtec 10 mg Tablet] 1 tab PO DAILYP PRN 03/04/18 Fluticasone/Salmeterol [Advair 250-50 Diskus 28 dose] 1 inh IH DAILY 03/04/18 Gabapentin [Neurontin 400 mg Capsule] 400 mg PO Q12 03/04/18 Hydrocodone/Acetaminophen [[place] 5-325 Tablet] 1 each PO BIDP PRN 03/04/18 Lisinopril [Prinivil 5 mg Tablet] 5 mg PO DAILY 03/04/18 Metformin HCl [Glucophage 500 mg Tablet] 500 mg PO BIDBS 03/04/18 Omeprazole 40 mg PO Q6AM 03/04/18 Sucralfate [Carafate 1 gm Tablet] 1 gm PO ACHS 03/04/18 Tiotropium [place] [Spiriva Handihaler 18 mcg/dose (30 Dose)] 1 cap IH DAILY Aspirin [Ecotrin 81 mg EC Tablet] 81 mg PO DAILY tabec 03/09/18 Carvedilol [Coreg 3.125 mg Tablet] 3.125 mg PO Q12 30 Days #60 tablet 03/09/18 Cefuroxime Axetil [Ceftin 500 mg Tablet] 500 mg PO Q12H #6 tablet 03/09/18 Doxycycline Hyclate [Vibramycin Inj 100 mg Vial] 100 mg IV Q12 3 Days #6 vial Gabapentin [Neurontin 400 mg Capsule] 400 mg PO Q12 capsule 03/09/18 Hydrocodone/Acetaminophen [[place] 5-325 mg Tablet] 1 tab PO Q12HP PRN tablet Lisinopril [Prinivil 5 mg Tablet] 5 mg PO DAILY tablet 03/09/18 Prednisone 20 mg PO DAILY #16 tablet 03/09/18 Allergies/Adverse Reactions: ibuprofen [From Motrin] Allergy (Intermediate, Verified 10/12/17 10:13) RASH/UTICARTIA Review of Systems Constitutional: PRESENT: as per HPI Nose, Mouth, and Throat: PRESENT: as per HPI Cardiovascular: PRESENT: as per HPI Respiratory: PRESENT: as per HPI Neurological: PRESENT: as per HPI Physical Exam Vital Signs: Temp Pulse Resp BP Pulse Ox 97.5 F 70 20 149/83 H 92 03/23/18 22:09 03/23/18 22:09 03/24/18 02:01 03/24/18 02:01 03/24/18 02:01 General appearance: PRESENT: mild distress Head exam: PRESENT: atraumatic, normocephalic Respiratory exam: PRESENT: wheezes Cardiovascular exam: PRESENT: RRR. ABSENT: diastolic murmur, rubs, systolic murmur GI/Abdominal exam: PRESENT: other - Moderately obese abdomen Neurological exam: PRESENT: alert, awake, oriented to time, oriented to situation Results Impressions: Chest X-Ray 03/23/18 22:22 IMPRESSION: NO ACUTE RADIOGRAPHIC FINDING IN THE CHEST. Assessment & Plan - Diagnosis (1) Acute exacerbation of chronic obstructive pulmonary disease (COPD) Is this a current diagnosis for this admission?: Yes Plan: Patient has been started per protocol with Solu-Medrol, DuoNeb, Zithromax and Symbicort. (2) CAD (coronary artery disease) Qualifiers: Coronary Disease-Associated Artery/Lesion type: [place] artery [place] vs. transplanted heart: [place] heart Associated angina: without angina Qualified Code(s): I25.10 - Atherosclerotic heart disease of [place] coronary artery without angina pectoris Is this a current diagnosis for this admission?: Yes Plan: Stable continue home medication (3) Diabetes mellitus type 2 in obese Is this a current diagnosis for this admission?: Yes Plan: Patient put on sliding scale and will continue her home medications. (4) Tobacco abuse Is this a current diagnosis for this admission?: Yes Plan: Patient has been encouraged to quit smoking. - Time Time Spent: 30 to 50 Minutes - Inpatient Certification Medical Necessity: Need for IV Antibiotics
[2018-03-24 02:42] LABS: ANION GAP 11 (5-19); BLOOD UREA NITROGEN 21 mg/dL (7-20); CALCIUM 8.9 mg/dL (8.4-10.2); CARBON DIOXIDE 32 mmol/L (22-30); CHLORIDE 101 mmol/L (98-107); GLUCOSE 270 mg/dL (75-110); POTASSIUM 4.9 mmol/L (3.6-5.0); SODIUM 143.5 mmol/L (137-145)
[2018-03-24] MEDS: IPRATROPIUM/ALBUTEROL 0.5-2.5 MG/3 ML AMPUL NEB SCH ×5 (03:21→20:31)
[2018-03-24 04:03] LABS: APPEARANCE,URINE SLIGHTLY-CLOUDY; BILIRUBIN,URINE NEGATIVE (NEGATIVE); COLOR,URINE YELLOW; GLUCOSE, URINE 50 mg/dL (NEGATIVE); KETONES,URINE NEGATIVE (NEGATIVE); LEUKOCYTE ESTERASE,URINE NEGATIVE (NEGATIVE); NITRITE,URINE NEGATIVE (NEGATIVE); PROTEIN,URINE NEGATIVE (NEGATIVE); URINE SPECIFIC GRAVITY 1.012; UROBILINOGEN,URINE NEGATIVE mg/dL (<2.0)
[2018-03-24] MEDS: LANSOPRAZOLE 30 MG TAB.RAP.DR PO SCH (05:40)
[2018-03-24] MEDS: METHYLPREDNISOLONE INJ 40 MG/1 ML SDV IV SCH ×3 (05:40→21:36)
[2018-03-24] MEDS: FUROSEMIDE 40 MG TABLET PO SCH (09:43)
[2018-03-24] MEDS: ENOXAPARIN SODIUM INJ 40 MG/0.4 ML DISP.SYRIN SUBCUT SCH (09:45)
--- NOTE | 2018-03-24 17:07 | Progress Note ---
Provider Note Provider Note: Agree with turkey roll maker plan of care. GAVI PEDRO is a 72-year-old female well-known to the hospitalist service. She presents to [facility] with complaints of shortness of breath. Of note, she was recently discharged from [facility] for COPD exacerbation and pneumonia in January 2018. 1. ACUTE ON CHRONIC COPD: Solumedrol, Duonebs, Zithromax, and symbicort 2. CAD: Resume home dose Coreg and lisinopril. Aspirin and statin therapy. 3. DM: Accu-Cheks before meals at bedtime, Humalog sliding scale insulin 4. TOBACCO ABUSE: Patient has been encouraged to quit smoking. Extensive conversation with her today about the dangers of continuing to smoke and its contribution to the progression of her COPD.
[2018-03-24] MEDS ORDERED: LISINOPRIL 5 MG TABLET PO ONE (17:30)
[2018-03-24] MEDS: CARVEDILOL 3.125 MG TABLET PO SCH (21:36)
[2018-03-24] MEDS ORDERED: AZITHROMYCIN 500 MG in DEXTROSE 5%-WATER 250 ML IV SCH (22:00)
--- NOTE | 2018-03-24 23:28 | EKG REPORT ---
SEVERITY:- ABNORMAL ECG - SINUS RHYTHM LEFT BUNDLE BRANCH BLOCK : Confirmed by: Francisca Marin 24-Mar-2018 23:27:46
[2018-03-25] MEDS: IPRATROPIUM/ALBUTEROL 0.5-2.5 MG/3 ML AMPUL NEB SCH ×5 (00:21→16:37)
[2018-03-25] MEDS ORDERED: HYDROCODONE/ACETAMINOPHEN 5-325 MG TABLET PO PRN (01:02)
[2018-03-25 05:44] LABS: HEMATOCRIT 31.9 % (36.0-47.0); HEMOGLOBIN 10.7 g/dL (12.0-15.5); MEAN CORPUSCULAR HEMOGLOBIN 30.1 pg (27.0-33.4); MEAN CORPUSCULAR HGB CONC 33.4 g/dL (32.0-36.0); MEAN CORPUSCULAR VOLUME 90 fl (80-97); PLATELET COUNT 207 10^3/uL (150-450); RED BLOOD COUNT 3.54 10^6/uL (3.72-5.28); RED CELL DISTRIBUTION WIDTH 13.7 % (11.5-14.0); WHITE BLOOD COUNT 17.8 10^3/uL (4.0-10.5)
[2018-03-25 06:00] LABS: ANION GAP 12 (5-19); BLOOD UREA NITROGEN 38 mg/dL (7-20); CALCIUM 9.6 mg/dL (8.4-10.2); CARBON DIOXIDE 33 mmol/L (22-30); CHLORIDE 95 mmol/L (98-107); GLUCOSE 196 mg/dL (75-110); PHOSPHORUS 4.1 mg/dL (2.5-4.5); POTASSIUM 4.8 mmol/L (3.6-5.0); SODIUM 139.5 mmol/L (137-145)
[2018-03-25] MEDS: LANSOPRAZOLE 30 MG TAB.RAP.DR PO SCH (06:17)
[2018-03-25] MEDS: METHYLPREDNISOLONE INJ 40 MG/1 ML SDV IV SCH ×2 (06:17→15:50)
[2018-03-25 06:22] LABS: ABSOLUTE LYMPHOCYTES# (MANUAL) 1.4 10^3/uL (0.5-4.7); ABSOLUTE MONOCYTES # (MANUAL) 0.7 10^3/uL (0.1-1.4); ABSOLUTE NEUTROPHILS# (MANUAL) 15.7 10^3/uL (1.7-8.2); BASOPHILS % (MANUAL) 0 % (0-2); EOSINOPHILS % (MANUAL) 0 % (0-6); LYMPHOCYTES % (MANUAL) 8 % (13-45); MONOCYTES % (MANUAL) 4 % (3-13); SEGMENTED NEUTROPHILS % (MAN) 88 % (42-78); TOTAL CELLS COUNTED 100
[2018-03-25 06:24] LABS: PLATELET COMMENT ADEQUATE; RBC MORPHOLOGY COMMENT NORMO-CYTIC/CHROMIC
[2018-03-25] MEDS ORDERED: DEXTROSE 50%-WATER SYRINGE 12.5 GM/25 ML DOSE IV PRN (07:40)
[2018-03-25] MEDS ORDERED: DEXTROSE 50%-WATER SYRINGE 25 GM/50 ML DOSE IV PRN (07:40)
[2018-03-25] MEDS ORDERED: DEXTROSE 40% GEL 15 GM TUBE X 2 PO PRN (07:40)
[2018-03-25] MEDS ORDERED: DEXTROSE 40% GEL 15 GM TUBE PO PRN (07:40)
[2018-03-25] MEDS ORDERED: INSULIN LISPRO 100 UNIT/ML 3 ML VIAL SUBCUT PRN (07:40)
[2018-03-25] MEDS ORDERED: GLUCAGON,HUMAN RECOMB 1 MG INJ IM PRN (07:40)
[2018-03-25] MEDS ORDERED: METFORMIN HCL 500 MG TABLET PO SCH (10:00)
[2018-03-25] MEDS ORDERED: LISINOPRIL 5 MG TABLET PO SCH (10:00)
[2018-03-25] MEDS: CARVEDILOL 3.125 MG TABLET PO SCH (10:33)
[2018-03-25] MEDS: FUROSEMIDE 40 MG TABLET PO SCH (10:33)
[2018-03-25] MEDS: ENOXAPARIN SODIUM INJ 40 MG/0.4 ML DISP.SYRIN SUBCUT SCH (10:33)
[2018-03-25 15:11] VITALS: BP 124/55
== END 2018-03-25 17:20 | disposition home or self-care (01) | DRG 192 ==
LOC: ER 22:08 → EH 03-24 01:19 → 3S 03-24 10:37
PROVIDERS: ADMIT Internal Medicine; ATTEND Internal Medicine
PROC: 5A09457 Assistance with Respiratory Ventilation, 24-96 Consecutive Hours, Continuous Positive Airway Pressure (ICD-10-PCS; principal; 2018-03-23)
PROC: 3E0F73Z Introduction of Anti-inflammatory into Respiratory Tract, Via Natural or Artificial Opening (ICD-10-PCS; 2018-03-24)
DX: J44.1 Chronic obstructive pulmonary disease with (acute) exacerbation (principal); G47.33 Obstructive sleep apnea (adult) (pediatric); E11.9 Type 2 diabetes mellitus without complications; I11.0 Hypertensive heart disease with heart failure; I50.9 Heart failure, unspecified; E78.00 Pure hypercholesterolemia, unspecified; I25.10 Atherosclerotic heart disease of native coronary artery without angina pectoris; M19.90 Unspecified osteoarthritis, unspecified site; D64.9 Anemia, unspecified; F17.210 Nicotine dependence, cigarettes, uncomplicated; I44.7 Left bundle-branch block, unspecified; E66.9 Obesity, unspecified; Z68.33 Body mass index [BMI] 33.0-33.9, adult; Z99.81 Dependence on supplemental oxygen; Z86.718 Personal history of other venous thrombosis and embolism; Z90.49 Acquired absence of other specified parts of digestive tract; Z90.710 Acquired absence of both cervix and uterus; Z79.899 Other long term (current) drug therapy; Z79.82 Long term (current) use of aspirin; Z79.52 Long term (current) use of systemic steroids; Z82.49 Family history of ischemic heart disease and other diseases of the circulatory system
CPT/HCPCS: 36415; 71045; 80048; 80053; 81001; 82550; 82553; 82962; 83735; 83880; 84100; 84484; 85025; 87040; 93005; 93010; 94640; 94660; 99285; J0456; J1650; J1815; J1940; J2920; J7060; J7620

== ENCOUNTER 2018-03-28 00:09 | Emergency (ER) | payer MEDICARE ==
[2018-03-28 01:00] LABS: ANION GAP 11 (5-19); BLOOD UREA NITROGEN 44 mg/dL (7-20); CALCIUM 8.9 mg/dL (8.4-10.2); CARBON DIOXIDE 30 mmol/L (22-30); CHLORIDE 101 mmol/L (98-107); GLUCOSE 135 mg/dL (75-110); POTASSIUM 4.1 mmol/L (3.6-5.0)
[2018-03-28 01:02] LABS: HEMATOCRIT 34.3 % (36.0-47.0); HEMOGLOBIN 11.2 g/dL (12.0-15.5); MEAN CORPUSCULAR HEMOGLOBIN 29.9 pg (27.0-33.4); MEAN CORPUSCULAR HGB CONC 32.5 g/dL (32.0-36.0); MEAN CORPUSCULAR VOLUME 92 fl (80-97); PLATELET COUNT 220 10^3/uL (150-450); RED BLOOD COUNT 3.73 10^6/uL (3.72-5.28); RED CELL DISTRIBUTION WIDTH 14.1 % (11.5-14.0)
[2018-03-28] MEDS ORDERED: IPRATROPIUM/ALBUTEROL 0.5-2.5 MG/3 ML AMPUL NEB ONE (01:09)
--- NOTE | 2018-03-28 01:16 | ER Document Report ---
ED General - General Chief Complaint: Breathing Difficulty Stated Complaint: DIFFICULTY BREATHING Time Seen by Provider: 03/28/18 00:16 Notes: Patient is a 72-year-old female with a past medical history of COPD with ongoing tobacco abuse, hypertension, morbid obesity, hyperlipidemia, who presents with several hours of progressively worsening shortness of breath and cough. Patient reports that she was discharged from the hospital approximately 48 hours ago but has not filled the steroid prescription that was given to her. She does continue to smoke. She states that she has tried nebulizers at home with minimal improvement of her shortness of breath. Exertion and smoking worsening shortness of breath. She states this feels similar to prior COPD exacerbations that she has had in the past. She has a 3 L of nasal cannula dependence at baseline. She has not followed up with her primary care doctor since being discharged from the hospital. She denies any associated chest pain , fever, abdominal pain, vomiting or diarrhea. TRAVEL OUTSIDE OF THE [place] IN LAST 30 DAYS: No - Related Data Allergies/Adverse Reactions: ibuprofen [From Motrin] Allergy (Intermediate, Verified 10/12/17 10:13) RASH/UTICARTIA Past Medical History - General Information source: Patient - Social History Smoking Status: Current Every Day Smoker Frequency of alcohol use: None Drug Abuse: None Lives with: Family Family History: Reviewed & Not Pertinent, Hypertension - Past Medical History Cardiac Medical History: Reports: Hx Congestive Heart Failure, Hx Coronary Artery Disease, Hx DVT, Hx Hypertension Denies: Hx Heart Attack, Hx Heart Murmur Pulmonary Medical History: Reports: Hx Asthma, Hx COPD Denies: Hx Respiratory Failure, Hx Sleep Apnea, Hx Tuberculosis Neurological Medical History: Denies: Hx Cerebrovascular Accident, Hx Seizures Endocrine Medical History: Reports: Hx Diabetes Mellitus Type 2 Renal/ Medical History: Reports: Hx Renal Insufficiency. Denies: Hx Peritoneal Dialysis GI Medical History: Reports: Hx Diverticulitis, Hx Gastroesophageal Reflux Disease. Denies: Hx Hepatitis, Hx Hiatal Hernia, Hx Pancreatitis, Hx Ulcer - ? Musculoskeltal Medical History: Reports Hx Arthritis Psychiatric Medical History: Denies: Hx Depression Traumatic Medical History: Reports: Hx Fractures - several broken ribs Infectious Medical History: Denies: Hx Hepatitis Past Surgical History: Reports: Hx Appendectomy, Hx Cholecystectomy, Hx Herniorrhaphy, Hx Hysterectomy, Hx Orthopedic Surgery - rotator cuff. Denies: Hx Mastectomy, Hx Open Heart Surgery, Hx Pacemaker - Immunizations Immunizations up to date: Yes Hx Diphtheria, Pertussis, Tetanus Vaccination: No Hx Pneumococcal Vaccination: 08/30/14 Review of Systems - Review of Systems Notes: Constitutional: Negative for fever. HENT: Negative for sore throat. Eyes: Negative for visual changes. Cardiovascular: Negative for chest pain. Respiratory: Positive for shortness of breath. Gastrointestinal: Negative for abdominal pain, vomiting or diarrhea. Genitourinary: Negative for dysuria. Musculoskeletal: Negative for back pain. Skin: Negative for rash. Neurological: Negative for headaches, weakness or numbness. 10 point ROS negative except as marked above and in HPI. Physical Exam - Vital signs Interpretation: Normal Notes: PHYSICAL EXAMINATION: GENERAL: Appears older than stated age, mildly tachypneic but in no respiratory distress. HEAD: Atraumatic, normocephalic. EYES: Pupils equal round and reactive to light, extraocular movements intact, sclera anicteric, conjunctiva are normal. ENT: nares patent, oropharynx clear without exudates. Moist mucous membranes. NECK: Normal range of motion, supple without lymphadenopathy LUNGS: Diminished air movement throughout although breath sounds are present in all lung blackmon. Faint end expiratory wheezing throughout. HEART: Regular rate and rhythm without murmurs ABDOMEN: Soft, nontender, normoactive bowel sounds. No guarding, no rebound. No masses appreciated. EXTREMITIES: Normal range of motion, no pitting or edema. No cyanosis. NEUROLOGICAL: No focal neurological deficits. Moves all extremities spontaneously and on command. PSYCH: Normal mood, normal affect. SKIN: Warm, Dry, normal turgor, no rashes or lesions noted. Course - Re-evaluation Re-evalutation: 03/28/18 01:10 Patient presents with a mild exacerbation of their baseline COPD patient was just discharged from the hospital 2 days ago but has not filled the prescription for steroids that were provided to her. She does continue to smoke. Mild wheezing at time of presentation but vitals do not show significant hypoxemia or tachypnea. No retractions. Patient did clinically improve after receiving nebulizers here in the emergency department. Chest x- ray without evidence of an acute pneumonia. Laboratories do not show acute kidney injury or significant leukocytosis. Patient able to ambulate without any respiratory distress. Based on patient's overall reassuring assessment, I believe they are stable for outpatient management with steroids. Patient has nebulizers at home. I do not suspect an acute alternative pathology at this time based on history and exam including acute pulmonary embolus, ACS, pneumothorax, or aortic dissection. At this time will discharge with return precautions and follow-up recommendations. Verbal discharge instructions given a the bedside and opportunity for questions given. Medication warnings reviewed. Patient is in agreement with this plan and has verbalized understanding of return precautions and the need for primary care follow-up in the next 24-72 hours. - Laboratory Result Diagrams: 03/28/18 00:25 03/28/18 00:25 Laboratory results interpreted by me: 03/28/18 00:25 BUN 44 H Est GFR ( Amer) 56 L Est GFR (Non-Af Amer) 46 L Glucose 135 H - Diagnostic Test Radiology reviewed: Image reviewed, Reports reviewed Radiology results interpreted by me: 03/28/18 01:21 Chest x-ray: No acute infiltrate, COPD - EKG Interpretation by Me Additional EKG results interpreted by me: 03/28/18 01:21 Sinus rhythm. Rate 72. Left bundle branch block present. Discharge - Discharge Clinical Impression: Tobacco abuse, Obesity (BMI 30-39.9), COPD exacerbation Condition: Stable Disposition: HOME, SELF-CARE Additional Instructions: You were seen for a COPD exacerbation. Your symptoms improved with treatment here in the emergency department. However, it is very important that you return to the emergency department immediately if you began to have worsening difficulty breathing that does not respond to your normal home nebulizers. You are also being sent home on a five-day course of steroids that you should start taking tomorrow. Please also follow closely with your primary care physician. You should return to emergency department if you develop fever greater than 101, persistent cough, persistent vomiting, pass out, or any other symptoms that are concerning to you. Prescriptions: Prednisone [Deltasone 20 mg Tablet] 3 tab PO DAILY 5 Days tablet Referrals: KYLE NIETO MD [Primary Care Provider] - Follow up in 3-5 days
[2018-03-28 01:39] LABS: ABSOLUTE LYMPHOCYTES# (MANUAL) 4.4 10^3/uL (0.5-4.7); ABSOLUTE MONOCYTES # (MANUAL) 0.9 10^3/uL (0.1-1.4); ABSOLUTE NEUTROPHILS# (MANUAL) 11.6 10^3/uL (1.7-8.2); BASOPHILS % (MANUAL) 0 % (0-2); EOSINOPHILS % (MANUAL) 1 % (0-6); LYMPHOCYTES % (MANUAL) 26 % (13-45); MONOCYTES % (MANUAL) 5 % (3-13); SEGMENTED NEUTROPHILS % (MAN) 68 % (42-78); TOTAL CELLS COUNTED 100
[2018-03-28 01:41] LABS: ANISOCYTOSIS SLIGHT; PLATELET COMMENT ADEQUATE
[2018-03-28] MEDS ORDERED: PREDNISONE 20 MG TABLET PO ONE (02:39)
--- NOTE | 2018-03-28 02:44 | RADIOLOGY REPORT (SQ) ---
EXAM DESCRIPTION: CHEST SINGLE VIEW CLINICAL HISTORY: sob COMPARISON: None. FINDINGS: Single frontal view of the chest. The cardiomediastinal silhouette has normal size and contour. No consolidation, pneumothorax, or pleural effusion. No displaced rib fractures identified. Upper abdominal soft tissues are unremarkable. Leads overlie the chest. IMPRESSION: 1. No acute pulmonary process identified.
[2018-03-28 04:07] VITALS: BP 123/69
--- NOTE | 2018-03-28 07:34 | EKG REPORT ---
SEVERITY:- ABNORMAL ECG - SINUS RHYTHM LEFT BUNDLE BRANCH BLOCK : Confirmed by: Paras Alvarado MD 28-Mar-2018 07:33:51
== END 2018-03-28 04:08 | disposition home or self-care (01) ==
LOC: ER 00:09
DX: J44.1 Chronic obstructive pulmonary disease with (acute) exacerbation (principal); T38.0X6A Underdosing of glucocorticoids and synthetic analogues, initial encounter; Z91.128 Patient's intentional underdosing of medication regimen for other reason; Z91.14 Patient's other noncompliance with medication regimen; Z99.81 Dependence on supplemental oxygen; E66.9 Obesity, unspecified; F17.200 Nicotine dependence, unspecified, uncomplicated; R06.02 Shortness of breath; I44.7 Left bundle-branch block, unspecified; R05 Cough; I10 Essential (primary) hypertension; I25.10 Atherosclerotic heart disease of native coronary artery without angina pectoris; E11.9 Type 2 diabetes mellitus without complications; Z88.6 Allergy status to analgesic agent
CPT/HCPCS: 93005; 94640; 99285; 36415; 85025; 80048; 84484; 71045; 93010; A9270 ×2; J7512; J7620

== ENCOUNTER 2018-05-06 05:20 | Inpatient (IN) | payer MEDICARE ==
[2018-05-06] MEDS ORDERED: IPRATROPIUM/ALBUTEROL 0.5-2.5 MG/3 ML AMPUL NEB ONE (05:36)
[2018-05-06] MEDS ORDERED: METHYLPREDNISOLONE INJ 125 MG/2 ML SDV IV ONE (05:36)
--- NOTE | 2018-05-06 05:38 | ER Document Report ---
Doctor's Note Notes: 05/06/18 05:37 I performed a quick triage evaluation the patient. Patient is a 72-year-old female with history of COPD and CHF who presents with difficulty breathing is been worsening over the last 8-10 hours. Some associated chest pressure. No vomiting. No fevers. She did use her breathing treatments at home but they have not been helping. Patient therefore is arrived to the ER. On exam she is tachypneic. She does have some accessory muscle use. She has rales in the bases as well as some wheezing in upper portions of her lungs. She does still smoke. I have ordered BiPAP. I have ordered Solu-Medrol as well as a breathing treatment. I have ordered blood work as well as chest x-ray. Dictation of this chart was performed using voice recognition software; therefore, there may be some unintended grammatical errors.
--- NOTE | 2018-05-06 06:03 | ER Document Report ---
ED Respiratory Problem - General Chief Complaint: Breathing Difficulty Stated Complaint: CHEST PAIN Time Seen by Provider: 05/06/18 05:34 Notes: 72-year-old female patient emergency department chief complaint of shortness of breath difficulty breathing. Long-standing history of COPD. Respiratory failure. Cannot seem to get the air moving today. No fever. No chills. No sweats no other major, complaints at this time TRAVEL OUTSIDE OF THE [place] IN LAST 30 DAYS: No - HPI Patient complains to provider of: COPD, Hurts to breath, Short of breath Onset: Yesterday Duration: Continuous - Related Data Allergies/Adverse Reactions: ibuprofen [From Motrin] Allergy (Intermediate, Verified 10/12/17 10:13) RASH/UTICARTIA Past Medical History - General Information source: Patient, [facility] Records - Social History Smoking Status: Former Smoker Frequency of alcohol use: None Drug Abuse: None Lives with: Family Family History: Reviewed & Not Pertinent, Hypertension - Past Medical History Cardiac Medical History: Reports: Hx Congestive Heart Failure, Hx Coronary Artery Disease, Hx DVT, Hx Hypertension Denies: Hx Heart Attack, Hx Heart Murmur Pulmonary Medical History: Reports: Hx Asthma, Hx COPD Denies: Hx Respiratory Failure, Hx Sleep Apnea, Hx Tuberculosis Neurological Medical History: Denies: Hx Cerebrovascular Accident, Hx Seizures Endocrine Medical History: Reports: Hx Diabetes Mellitus Type 2 Renal/ Medical History: Reports: Hx Renal Insufficiency. Denies: Hx Peritoneal Dialysis GI Medical History: Reports: Hx Diverticulitis, Hx Gastroesophageal Reflux Disease. Denies: Hx Hepatitis, Hx Hiatal Hernia, Hx Pancreatitis, Hx Ulcer - ? Musculoskeltal Medical History: Reports Hx Arthritis Psychiatric Medical History: Denies: Hx Depression Traumatic Medical History: Reports: Hx Fractures - several broken ribs Infectious Medical History: Denies: Hx Hepatitis Past Surgical History: Reports: Hx Appendectomy, Hx Cholecystectomy, Hx Herniorrhaphy, Hx Hysterectomy, Hx Orthopedic Surgery - rotator cuff. Denies: Hx Mastectomy, Hx Open Heart Surgery, Hx Pacemaker - Immunizations Immunizations up to date: Yes Hx Diphtheria, Pertussis, Tetanus Vaccination: No Hx Pneumococcal Vaccination: 08/30/14 Review of Systems - Review of Systems Constitutional: denies: Fever, Malaise, Weakness EENT: denies: Eye pain, Nose pain, Mouth pain Cardiovascular: Orthopnea, Dyspnea, Edema. denies: Chest pain, Palpitations, Heart racing Respiratory: Cough, Hurts to breathe, Short of breath, Wheezing Gastrointestinal: denies: Abdominal pain, Diarrhea, Nausea, Vomiting Genitourinary: denies: Burning, Frequency, Flank pain, Urgency Musculoskeletal: denies: Back pain, Muscle pain, Leg swelling Skin: denies: Dryness, Lesions, Lumps, Rash Hematologic/Lymphatic: denies: Anemia, Blood clots, Easy bleeding, Easy bruising Neurological/Psychological: denies: Confusion, Weakness, Numbness Physical Exam - Vital signs Vitals: Temp Pulse Resp BP Pulse Ox 98.4 F 76 29 H 191/78 H 93 05/06/18 05:27 05/06/18 05:27 05/06/18 05:27 05/06/18 05:27 05/06/18 05:27 Interpretation: Normal - General General appearance: Appears well, Alert - HEENT Head: Normocephalic, Atraumatic Eyes: Normal Pupils: PERRL - Respiratory Respiratory status: Tachypnea Chest status: Nontender Breath sounds: Nonproductive cough, Wheezing Chest palpation: Normal - Cardiovascular Rhythm: Regular Heart sounds: Normal auscultation Murmur: No - Abdominal Inspection: Normal Distension: No distension Bowel sounds: Normal Tenderness: Nontender Organomegaly: No organomegaly - Back Back: Normal, Nontender - Extremities General upper extremity: Normal inspection, Nontender, Normal color, Normal ROM , Normal temperature General lower extremity: Normal inspection, Nontender, Normal color, Normal ROM , Normal temperature, Normal weight bearing. No: Mateus's sign - Neurological Neuro grossly intact: Yes Cognition: Normal Orientation: AAOx4 Eve Coma Scale Eye Opening: Spontaneous Eve Coma Scale Verbal: Oriented Leslie Coma Scale Motor: Obeys Commands Eve Coma Scale Total: 15 Speech: Normal Motor strength normal: LUE, RUE, LLE, RLE Sensory: Normal - Psychological Associated symptoms: Normal affect, Normal mood - Skin Skin Temperature: Warm Skin Moisture: Dry Skin Color: Normal Course - Re-evaluation Re-evalutation: 05/06/18 07:38 72-year-old with chronic COPD. Here with masturbation of COPD. Tachypneic. Feeling better at this time on BiPAP. Steroids antibiotics ordered. Breathing treatments ordered. At this time patient will likely need to be admitted for further treatment. 05/06/18 07:38 05/06/18 07:41 Laboratory 05/06/18 05/06/18 05/06/18 06:47 06:47 06:47 WBC 11.3 H RBC 3.72 Hgb 11.3 L Hct 34.1 L MCV 92 MCH 30.3 MCHC 33.1 RDW 14.4 H Plt Count 224 Seg Neutrophils % 68.1 Lymphocytes % 22.9 Monocytes % 6.5 Eosinophils % 1.0 Basophils % 1.5 Absolute Neutrophils 7.7 Absolute Lymphocytes 2.6 Absolute Monocytes 0.7 Absolute Eosinophils 0.1 Absolute Basophils 0.2 VBG pH VBG pCO2 VBG HCO3 VBG Base Excess Sodium 142.3 Potassium 4.4 Chloride 106 Carbon Dioxide 24 Anion Gap 12 BUN 19 Creatinine 0.96 Est GFR ( Amer) > 60 Est GFR (Non-Af Amer) 57 L Glucose 123 H Calcium 9.4 Total Bilirubin 0.3 Direct Bilirubin 0.3 Neonat Total Bilirubin Not Reportable Neonat Direct Bilirubin Not Reportable Neonat Indirect Bili Not Reportable AST 15 ALT 20 Alkaline Phosphatase 76 Troponin I < 0.012 NT-Pro-B Natriuret Pep 783 Total Protein 6.6 Albumin 3.7 05/06/18 06:47 WBC RBC Hgb Hct MCV MCH MCHC RDW Plt Count Seg Neutrophils % Lymphocytes % Monocytes % Eosinophils % Basophils % Absolute Neutrophils Absolute Lymphocytes Absolute Monocytes Absolute Eosinophils Absolute Basophils VBG pH 7.35 VBG pCO2 51.6 VBG HCO3 27.7 VBG Base Excess 1.3 Sodium Potassium Chloride Carbon Dioxide Anion Gap BUN Creatinine Est GFR ( Amer) Est GFR (Non-Af Amer) Glucose Calcium Total Bilirubin Direct Bilirubin Neonat Total Bilirubin Neonat Direct Bilirubin Neonat Indirect Bili AST ALT Alkaline Phosphatase Troponin I NT-Pro-B Natriuret Pep Total Protein Albumin Chest X-Ray 05/06/18 05:35 IMPRESSION: 1. Streaky bibasilar opacities may be related to subsegmental atelectasis however developing pneumonic process could produce a similar appearance. Continued radiographic follow-up to resolution recommended. - Vital Signs Vital signs: Temp Pulse Resp BP Pulse Ox 98.4 F 76 16 149/71 H 95 05/06/18 05:27 05/06/18 05:27 05/06/18 07:01 05/06/18 07:01 06/15/18 07:01 - Laboratory Result Diagrams: 05/06/18 06:47 05/06/18 06:47 Laboratory results interpreted by me: 05/06/18 05/06/18 06:47 06:47 WBC 11.3 H Hgb 11.3 L Hct 34.1 L RDW 14.4 H Est GFR (Non-Af Amer) 57 L Glucose 123 H - EKG Interpretation by Me EKG shows normal: Intervals, QRS Complexes, ST-T Waves [place]/QRS: LBBB When compared to previous EKG there are: No significant change Discharge - Discharge Clinical Impression: COPD exacerbation Disposition: ADMITTED INPATIENT Admitting Provider: Hospitalist - [facility] Unit Admitted: Telemetry Referrals: KYLE NIETO MD [Primary Care Provider] - Follow up as needed
--- NOTE | 2018-05-06 06:49 | RADIOLOGY REPORT (SQ) ---
EXAM DESCRIPTION: XR CHEST 1 VIEW COMPLETED DATE/TME: 05/06/2018 05:35 CLINICAL HISTORY: dyspnea COMPARISON: 03/28/2018 FINDINGS: Single frontal view of the chest. The cardiomediastinal silhouette has normal size and contour. No pneumothorax or pleural effusion. Streaky bibasilar opacities. No acute osseous abnormalities. Remote right rib fracture. Leads overlie the chest. Upper abdominal soft tissues are unremarkable. IMPRESSION: 1. Streaky bibasilar opacities may be related to subsegmental atelectasis however developing pneumonic process could produce a similar appearance. Continued radiographic follow-up to resolution recommended.
[2018-05-06 07:09] LABS: VENOUS BLOOD BASE EXCESS 1.3 mmol/L; VENOUS BLOOD HCO3 27.7 mmol/L (20-32); VENOUS BLOOD PCO2 51.6 mmHg (35-63); VENOUS BLOOD PH 7.35 (7.30-7.42)
[2018-05-06 07:11] LABS: ABSOLUTE BASOPHILS # (AUTO) 0.2 10^3/uL (0.0-0.2); ABSOLUTE EOSINOPHILS # (AUTO) 0.1 10^3/uL (0.0-0.6); ABSOLUTE LYMPHOCYTES (AUTO) 2.6 10^3/uL (0.5-4.7); ABSOLUTE MONOCYTES (AUTO) 0.7 10^3/uL (0.1-1.4); ABSOLUTE NEUT (AUTO) 7.7 10^3/uL (1.7-8.2); BASOPHILS % (AUTO) 1.5 % (0-2); HEMATOCRIT 34.1 % (36.0-47.0); HEMOGLOBIN 11.3 g/dL (12.0-15.5); LYMPHOCYTES % (AUTO) 22.9 % (13-45); MEAN CORPUSCULAR HEMOGLOBIN 30.3 pg (27.0-33.4); MEAN CORPUSCULAR HGB CONC 33.1 g/dL (32.0-36.0); MEAN CORPUSCULAR VOLUME 92 fl (80-97); MONOCYTES % (AUTO) 6.5 % (3-13); PLATELET COUNT 224 10^3/uL (150-450); RED BLOOD COUNT 3.72 10^6/uL (3.72-5.28); RED CELL DISTRIBUTION WIDTH 14.4 % (11.5-14.0); SEGMENTED NEUTROPHILS % (AUTO) 68.1 % (42-78); TOTAL CELLS COUNTED % (AUTO) 100 %; WHITE BLOOD COUNT 11.3 10^3/uL (4.0-10.5)
[2018-05-06 07:21] LABS: ALANINE AMINOTRANSFERASE 20 U/L (9-52); ALBUMIN 3.7 g/dL (3.5-5.0); ALKALINE PHOSPHATASE 76 U/L (38-126); ANION GAP 12 (5-19); ASPARTATE AMINO TRANSFERASE 15 U/L (14-36); BILIRUBIN,DIRECT 0.3 mg/dL (0.0-0.4); BILIRUBIN,TOTAL 0.3 mg/dL (0.2-1.3); BLOOD UREA NITROGEN 19 mg/dL (7-20); CALCIUM 9.4 mg/dL (8.4-10.2); CARBON DIOXIDE 24 mmol/L (22-30); CHLORIDE 106 mmol/L (98-107); GLUCOSE 123 mg/dL (75-110); POTASSIUM 4.4 mmol/L (3.6-5.0); SODIUM 142.3 mmol/L (137-145); TOTAL PROTEIN 6.6 g/dL (6.3-8.2)
[2018-05-06 07:32] LABS: NT PRO BNP 783 pg/mL (5-900)
[2018-05-06 07:33] LABS: TROPONIN I < 0.012 ng/mL
[2018-05-06] MEDS ORDERED: AZITHROMYCIN INJ 500 MG VIAL IV ONE (07:37)
[2018-05-06] MEDS ORDERED: ASPIRIN 81 MG TABLET, CHEWABLE PO ONE (08:48)
[2018-05-06] MEDS ORDERED: ONDANSETRON 4 MG TAB.RAPDIS PO ONE (08:59)
[2018-05-06] MEDS ORDERED: ALBUTEROL SULFATE 0.083% NEB 2.5 MG/3 ML AMPUL NEB PRN (09:11)
[2018-05-06] MEDS: ENOXAPARIN SODIUM INJ 40 MG/0.4 ML DISP.SYRIN SUBCUT SCH (10:56)
[2018-05-06] MEDS ORDERED: DEXTROSE 40% GEL 15 GM TUBE PO PRN ×4 (11:04→11:32)
[2018-05-06] MEDS ORDERED: DEXTROSE 50%-WATER 25 GM/50 ML DISP.SYRIN IV PRN ×4 (11:04→11:32)
[2018-05-06] MEDS ORDERED: GLUCAGON,HUMAN RECOMB 1 MG INJ IM PRN ×2 (11:04→11:32)
[2018-05-06] MEDS ORDERED: INSULIN LISPRO 100 UNIT/ML 3 ML VIAL SUBCUT PRN (11:32)
[2018-05-06] MEDS ORDERED: SUCRALFATE 1 GM TABLET PO ONE (12:00)
[2018-05-06] MEDS ORDERED: CARVEDILOL 3.125 MG TABLET PO ONE (12:00)
[2018-05-06] MEDS ORDERED: GABAPENTIN 400 MG CAPSULE PO ONE (12:00)
[2018-05-06] MEDS ORDERED: LISINOPRIL 5 MG TABLET PO ONE (12:00)
[2018-05-06] MEDS ORDERED: LANSOPRAZOLE 30 MG TAB.RAP.DR PO ONE (12:00)
[2018-05-06] MEDS: IPRATROPIUM/ALBUTEROL 0.5-2.5 MG/3 ML AMPUL NEB SCH ×3 (12:10→20:23)
[2018-05-06] MEDS: INSULIN LISPRO 100 UNIT/ML 3 ML VIAL SUBCUT PRN (13:17)
[2018-05-06] MEDS: METHYLPREDNISOLONE INJ 40 MG/1 ML SDV IV SCH ×2 (13:28→21:08)
--- NOTE | 2018-05-06 13:47 | EKG REPORT ---
SEVERITY:- ABNORMAL ECG - SINUS RHYTHM VENTRICULAR PREMATURE COMPLEX LEFT BUNDLE BRANCH BLOCK : Confirmed by: Paras Alvarado MD 06-May-2018 13:46:48
--- NOTE | 2018-05-06 13:47 | EKG REPORT ---
SEVERITY:- ABNORMAL ECG - SINUS RHYTHM LEFT BUNDLE BRANCH BLOCK : Confirmed by: Paras Alvarado MD 06-May-2018 13:46:57
--- NOTE | 2018-05-06 14:11 | PDOC H&P ---
History of Present Illness Admission Date/PCP: 05/06/18 08:22 KYLE NIETO MD Patient complains of: Shortness of breath History of Present Illness: GAVI PEDRO is a 72 year old female with past medical history of COPD, end-stage on 3 L nasal cannula oxygen at home Diabetes not insulin-dependent Hypertension Diastolic CHF Obstructive sleep apnea on CPAP at home Hyperlipidemia Nicotine dependence half pack a day smoker. Old left bundle branch block The patient presented to the hospital on May 06 with shortness of breath that has been progressively worsening. She was using her nebulizer at home with no relief. In the emergency room she was tachypneic with increased work of breathing and wheezing and was placed on BiPAP. She was also ordered steroids and nebs. She requests to be a full code. Past Medical History Cardiac Medical History: Reports: Congestive Heart Failure, Coronary Artery Disease, DVT, Hypertension Pulmonary Medical History: Reports: Chronic Obstructive Pulmonary Disease (COPD) Endocrine Medical History: Reports: Diabetes Mellitus Type 2 GI Medical History: Reports: Diverticulitis, Gastroesophageal Reflux Disease Musculoskeltal Medical History: Reports: Arthritis Hematology: Reports: Anemia - TAKE IRON SOMETIMES Past Surgical History Past Surgical History: Reports: Appendectomy, Cholecystectomy, Herniorrhaphy, Hysterectomy, Orthopedic Surgery - rotator cuff Social History Information Source: Patient Lives with: Family Smoking Status: Current Every Day Smoker Cigarettes Packs Per Day: 0.5 Number of Years Smokin Frequency of Alcohol Use: None Hx Recreational Drug Use: No Drugs: None Hx Prescription Drug Abuse: No - Advance Directive Resuscitation Status: Full Code Family History Family History: Hypertension Parental Family History Reviewed: Yes Children Family History Reviewed: Yes Sibling(s) Family History Reviewed.: Yes Medication/Allergy Home Medications: Carvedilol [Coreg 3.125 mg Tablet] 3.125 mg PO Q12 05/06/18 Furosemide [Lasix 20 mg Tablet] 20 mg PO DAILY 05/06/18 Gabapentin [Neurontin 400 mg Capsule] 400 mg PO Q12 05/06/18 Lisinopril [Zestril] 5 mg PO DAILY 05/06/18 Metformin HCl [Glucophage 500 mg Tablet] 500 mg PO BID 05/06/18 Omeprazole 40 mg PO DAILY 05/06/18 Sucralfate [Carafate 1 gm Tablet] 1 gm PO QID 05/06/18 Allergies/Adverse Reactions: ibuprofen [From Motrin] Allergy (Intermediate, Verified 10/12/17 10:13) RASH/UTICARTIA Review of Systems Constitutional: ABSENT: fever(s) Eyes: ABSENT: visual disturbances Ears: ABSENT: hearing changes Nose, Mouth, and Throat: ABSENT: sore throat Cardiovascular: PRESENT: dyspnea on exertion. ABSENT: chest pain, edema Respiratory: PRESENT: cough, dyspnea. ABSENT: hemoptysis Gastrointestinal: ABSENT: abdominal pain, vomiting Genitourinary: ABSENT: dysuria Musculoskeletal: ABSENT: deformity Integumentary: ABSENT: pruritus Neurological: ABSENT: focal weakness Psychiatric: ABSENT: hallucinations Endocrine: ABSENT: heat intolerance Hematologic/Lymphatic: ABSENT: easy bleeding Allergic/Immunologic: ABSENT: seasonal rhinorrhea Physical Exam Vital Signs: Temp Pulse Resp BP Pulse Ox 97.9 F 69 20 143/54 H 92 05/06/18 11:53 05/06/18 12:10 05/06/18 12:10 05/06/18 11:53 05/06/18 12:10 Intake & Output 05/05/18 05/06/18 05/07/18 06:59 06:59 06:59 Output Total 350 Balance -350 Weight 86.8 kg General appearance: PRESENT: no acute distress, obese Eye exam: PRESENT: PERRLA. ABSENT: scleral icterus Ear exam: PRESENT: normal external ear exam Mouth exam: PRESENT: moist Neck exam: ABSENT: tracheal deviation Respiratory exam: PRESENT: rhonchi, symmetrical, unlabored Cardiovascular exam: PRESENT: RRR GI/Abdominal exam: PRESENT: normal bowel sounds, soft. ABSENT: tenderness Rectal exam: PRESENT: deferred Gentrourinary exam: ABSENT: indwelling catheter Extremities exam: PRESENT: pedal edema Neurological exam: PRESENT: alert, awake, oriented to person, oriented to place , oriented to time, oriented to situation Psychiatric exam: PRESENT: appropriate affect Skin exam: ABSENT: petechiae Results Laboratory Results: 05/06/18 09:20 Phosphorus 4.0 Magnesium 2.0 05/06/18 09:20 NT-Pro-B Natriuret Pep 872 Impressions: Chest X-Ray 05/06/18 05:35 IMPRESSION: 1. Streaky bibasilar opacities may be related to subsegmental atelectasis however developing pneumonic process could produce a similar appearance. Continued radiographic follow-up to resolution recommended. Assessment & Plan - Diagnosis (1) Acute and chronic respiratory failure with hypoxia Is this a current diagnosis for this admission?: Yes Plan: Due to COPD exacerbation. (2) COPD exacerbation Is this a current diagnosis for this admission?: Yes Plan: Continue BiPAP as needed. Supplemental oxygen, nebs, steroids, Mucinex. Check sputum culture. Continue antibiotics. (3) Diabetic neuropathy Is this a current diagnosis for this admission?: Yes Plan: Continue gabapentin (4) DVT prophylaxis Is this a current diagnosis for this admission?: Yes Plan: Subcutaneous Lovenox (5) GERD (gastroesophageal reflux disease) Qualifiers: Esophagitis presence: without esophagitis Qualified Code(s): K21.9 - Gastro -esophageal reflux disease without esophagitis Is this a current diagnosis for this admission?: Yes Plan: Proton pump inhibitor (6) Non-insulin dependent type 2 diabetes mellitus Is this a current diagnosis for this admission?: Yes (7) Diastolic CHF Qualifiers: Qualified Code(s): I50.32 - Chronic diastolic (congestive) heart failure Is this a current diagnosis for this admission?: Yes Plan: Stable not in exacerbation. Continue outpatient medications including Lasix. (8) HTN (hypertension) Qualifiers: Hypertension type: essential hypertension Qualified Code(s): I10 - Essential (primary) hypertension Is this a current diagnosis for this admission?: Yes Plan: On Coreg and lisinopril. (9) JENNIE (obstructive sleep apnea) Is this a current diagnosis for this admission?: Yes Plan: CPAP at night. (10) Tobacco abuse Is this a current diagnosis for this admission?: Yes Plan: Nicotine patch. - Time Time Spent: Greater than 70 Minutes
[2018-05-06 14:34] LABS: CREATINE KINASE MB 0.95 ng/mL (<4.55)
[2018-05-06 14:36] LABS: TROPONIN I < 0.012 ng/mL
[2018-05-06] MEDS: NICOTINE 14 MG/24 HR PATCH.TD24 TD SCH (16:47)
[2018-05-06] MEDS: GUAIFENESIN 600 MG TABLET.SA PO SCH (16:48)
[2018-05-06] MEDS: SUCRALFATE 1 GM TABLET PO SCH ×2 (16:49→21:09)
[2018-05-06] MEDS ORDERED: ACETAMINOPHEN 325 MG TABLET PO ONE (18:00)
[2018-05-06] MEDS: CARVEDILOL 3.125 MG TABLET PO SCH (21:09)
[2018-05-06] MEDS: GABAPENTIN 400 MG CAPSULE PO SCH (21:09)
[2018-05-07] MEDS: HYDROCODONE/ACETAMINOPHEN 5-325 MG TABLET PO PRN ×2 (02:09→10:32)
[2018-05-07 05:16] LABS: HEMATOCRIT 32.9 % (36.0-47.0); HEMOGLOBIN 10.8 g/dL (12.0-15.5); MEAN CORPUSCULAR HEMOGLOBIN 30.5 pg (27.0-33.4); MEAN CORPUSCULAR HGB CONC 32.8 g/dL (32.0-36.0); MEAN CORPUSCULAR VOLUME 93 fl (80-97); PLATELET COUNT 213 10^3/uL (150-450); RED BLOOD COUNT 3.54 10^6/uL (3.72-5.28); RED CELL DISTRIBUTION WIDTH 14.2 % (11.5-14.0); WHITE BLOOD COUNT 11.7 10^3/uL (4.0-10.5)
[2018-05-07 05:38] LABS: ALANINE AMINOTRANSFERASE 17 U/L (9-52); ALBUMIN 3.5 g/dL (3.5-5.0); ALKALINE PHOSPHATASE 98 U/L (38-126); ANION GAP 14 (5-19); ASPARTATE AMINO TRANSFERASE 15 U/L (14-36); BILIRUBIN,DIRECT 0.2 mg/dL (0.0-0.4); BILIRUBIN,TOTAL 0.2 mg/dL (0.2-1.3); BLOOD UREA NITROGEN 26 mg/dL (7-20); CALCIUM 9.6 mg/dL (8.4-10.2); CARBON DIOXIDE 25 mmol/L (22-30); CHLORIDE 102 mmol/L (98-107); GLUCOSE 253 mg/dL (75-110); SODIUM 140.7 mmol/L (137-145); TOTAL PROTEIN 6.3 g/dL (6.3-8.2)
[2018-05-07 05:50] LABS: POTASSIUM 5.6 mmol/L (3.6-5.0)
[2018-05-07] MEDS: METHYLPREDNISOLONE INJ 40 MG/1 ML SDV IV SCH ×3 (06:02→21:44)
[2018-05-07] MEDS: LANSOPRAZOLE 30 MG TAB.RAP.DR PO SCH (06:06)
[2018-05-07] MEDS: SUCRALFATE 1 GM TABLET PO SCH ×4 (08:20→21:39)
[2018-05-07] MEDS: ACETAMINOPHEN 325 MG TABLET PO PRN ×3 (08:20→21:45)
[2018-05-07] MEDS ORDERED: LISINOPRIL 5 MG TABLET PO SCH (10:00)
--- NOTE | 2018-05-07 10:23 | RADIOLOGY REPORT (SQ) ---
EXAM DESCRIPTION: CHEST 2 VIEWS COMPLETED DATE/TIME: 05/07/2018 9:48 am REASON FOR STUDY: Dyspnea cough COMPARISON: Chest film 11/07/2016, 03/28/2018, 05/06/2018 EXAM PARAMETERS: NUMBER OF VIEWS: two views TECHNIQUE: Digital Frontal and Lateral radiographic views of the chest acquired. RADIATION DOSE: NA LIMITATIONS: none FINDINGS: LUNGS AND PLEURA: No opacities, masses or pneumothorax. No pleural effusion. MEDIASTINUM AND HILAR STRUCTURES: No masses or contour abnormalities. HEART AND VASCULAR STRUCTURES: Mild cardiomegaly BONES: Osteoporotic with old healed right lateral and left lateral rib fractures HARDWARE: None in the chest. OTHER: No other significant finding. IMPRESSION: No acute findings TECHNICAL DOCUMENTATION: JOB ID: [id number] [employer]- All Rights Reserved Reading location - IP/workstation name: [email or web address]
[2018-05-07] MEDS: FUROSEMIDE 20 MG TABLET PO SCH (10:30)
[2018-05-07] MEDS: GUAIFENESIN 600 MG TABLET.SA PO SCH ×2 (10:31→16:40)
[2018-05-07] MEDS: GABAPENTIN 400 MG CAPSULE PO SCH ×2 (10:31→21:38)
[2018-05-07] MEDS: DOXYCYCLINE HYCLATE 100 MG TABLET PO SCH ×2 (10:31→21:39)
[2018-05-07] MEDS: ENOXAPARIN SODIUM INJ 40 MG/0.4 ML DISP.SYRIN SUBCUT SCH (10:32)
[2018-05-07] MEDS: CARVEDILOL 3.125 MG TABLET PO SCH ×2 (10:32→21:43)
[2018-05-07] MEDS: INSULIN LISPRO 100 UNIT/ML 3 ML VIAL SUBCUT PRN ×2 (11:42→16:39)
[2018-05-07] MEDS: IPRATROPIUM/ALBUTEROL 0.5-2.5 MG/3 ML AMPUL NEB SCH ×3 (12:32→19:48)
--- NOTE | 2018-05-07 13:07 | PDOC PROGRESS REPORT ---
Subjective Progress Note for:: 05/07/18 Subjective:: 72 year old female with past medical history of COPD, end-stage on 3 L nasal cannula oxygen at home Diabetes not insulin-dependent Hypertension Diastolic CHF Obstructive sleep apnea on CPAP at home Hyperlipidemia Nicotine dependence half pack a day smoker. Old left bundle branch block She presented to the hospital on May 06 with acute hypoxic respiratory failure due to COPD exacerbation. The patient is being treated with steroids neb treatments and supplemental oxygen and is doing much better. Reason For Visit: ACUTE HYPOXIC RESPIRATORY FAILURE, COPD EXACERBATI Physical Exam Vital Signs: Temp Pulse Resp BP Pulse Ox 97.7 F 58 L 20 146/59 H 94 05/07/18 11:53 05/07/18 11:53 05/07/18 11:53 05/07/18 11:53 05/07/18 11:53 Intake & Output 05/06/18 05/07/18 05/08/18 06:59 06:59 06:59 Intake Total 417 Output Total 950 Balance -533 Weight 86.8 kg General appearance: PRESENT: no acute distress, obese Head exam: PRESENT: normocephalic Eye exam: ABSENT: scleral icterus Ear exam: PRESENT: normal external ear exam Mouth exam: PRESENT: moist Respiratory exam: PRESENT: rhonchi, symmetrical, unlabored. ABSENT: crackles, wheezes Cardiovascular exam: PRESENT: RRR GI/Abdominal exam: PRESENT: normal bowel sounds, soft. ABSENT: tenderness Rectal exam: PRESENT: deferred Extremities exam: ABSENT: calf tenderness Neurological exam: PRESENT: alert, awake, oriented to person, oriented to place , oriented to time, oriented to situation Psychiatric exam: PRESENT: appropriate affect Skin exam: ABSENT: petechiae Results Laboratory Results: 05/07/18 04:14 05/07/18 04:14 05/07/18 05/07/18 04:14 04:14 WBC 11.7 H RBC 3.54 L Hgb 10.8 L Hct 32.9 L MCV 93 MCH 30.5 MCHC 32.8 RDW 14.2 H Plt Count 213 Sodium 140.7 Potassium 5.6 H D Chloride 102 Carbon Dioxide 25 Anion Gap 14 BUN 26 H Creatinine 1.08 Est GFR ( Amer) > 60 Est GFR (Non-Af Amer) 50 L Glucose 253 H Calcium 9.6 Total Bilirubin 0.2 AST 15 ALT 17 Alkaline Phosphatase 98 Total Protein 6.3 Albumin 3.5 06/15/18 06/15/18 09:20 13:35 CK-MB (CK-2) 0.95 Troponin I < 0.012 NT-Pro-B Natriuret Pep 872 Impressions: Chest X-Ray 05/07/18 00:00 IMPRESSION: No acute findings Assessment & Plan - Diagnosis (1) Acute and chronic respiratory failure with hypoxia Is this a current diagnosis for this admission?: Yes Plan: Due to COPD exacerbation. (2) COPD exacerbation Is this a current diagnosis for this admission?: Yes Plan: Continue BiPAP as needed. Supplemental oxygen, nebs, steroids, Mucinex. Check sputum culture. Continue antibiotics. (3) Diabetic neuropathy Qualifiers: Diabetes mellitus type: type 2 Is this a current diagnosis for this admission?: Yes Plan: Continue gabapentin (4) DVT prophylaxis Is this a current diagnosis for this admission?: Yes Plan: Subcutaneous Lovenox (5) GERD (gastroesophageal reflux disease) Qualifiers: Esophagitis presence: without esophagitis Qualified Code(s): K21.9 - Gastro -esophageal reflux disease without esophagitis Is this a current diagnosis for this admission?: Yes Plan: Proton pump inhibitor (6) Non-insulin dependent type 2 diabetes mellitus Is this a current diagnosis for this admission?: Yes Plan: Insulin sliding scale. Diabetic diet. (7) Diastolic CHF Qualifiers: Qualified Code(s): I50.32 - Chronic diastolic (congestive) heart failure Is this a current diagnosis for this admission?: Yes Plan: Stable not in exacerbation. Continue outpatient medications including Lasix. (8) HTN (hypertension) Qualifiers: Hypertension type: essential hypertension Qualified Code(s): I10 - Essential (primary) hypertension Is this a current diagnosis for this admission?: Yes Plan: On Coreg. Lisinopril on hold due to mild hyperkalemia. (9) JENNIE (obstructive sleep apnea) Is this a current diagnosis for this admission?: Yes Plan: CPAP at night. (10) Tobacco abuse Is this a current diagnosis for this admission?: Yes Plan: Nicotine patch. - Time Time Spent with patient: 25-34 minutes
[2018-05-07] MEDS: NICOTINE 14 MG/24 HR PATCH.TD24 TD SCH (14:28)
[2018-05-07] MEDS: LACTOBACILLUS ACIDOPHILUS 250 MG TAB PO SCH (16:39)
[2018-05-08 05:18] LABS: ANION GAP 11 (5-19); BLOOD UREA NITROGEN 34 mg/dL (7-20); CALCIUM 10.1 mg/dL (8.4-10.2); CARBON DIOXIDE 31 mmol/L (22-30); CHLORIDE 96 mmol/L (98-107); GLUCOSE 227 mg/dL (75-110); POTASSIUM 5.4 mmol/L (3.6-5.0); SODIUM 138.3 mmol/L (137-145)
[2018-05-08] MEDS: METHYLPREDNISOLONE INJ 40 MG/1 ML SDV IV SCH ×2 (05:20→14:23)
[2018-05-08] MEDS: LANSOPRAZOLE 30 MG TAB.RAP.DR PO SCH (05:32)
[2018-05-08] MEDS: IPRATROPIUM/ALBUTEROL 0.5-2.5 MG/3 ML AMPUL NEB SCH ×4 (08:04→20:33)
[2018-05-08] MEDS: GABAPENTIN 400 MG CAPSULE PO SCH ×2 (09:42→21:28)
[2018-05-08] MEDS: SUCRALFATE 1 GM TABLET PO SCH ×4 (09:42→21:28)
[2018-05-08] MEDS: ENOXAPARIN SODIUM INJ 40 MG/0.4 ML DISP.SYRIN SUBCUT SCH (09:42)
[2018-05-08] MEDS: FUROSEMIDE 20 MG TABLET PO SCH (09:43)
[2018-05-08] MEDS: CARVEDILOL 3.125 MG TABLET PO SCH ×2 (09:43→21:28)
[2018-05-08] MEDS: GUAIFENESIN 600 MG TABLET.SA PO SCH ×2 (09:43→17:33)
[2018-05-08] MEDS: DOXYCYCLINE HYCLATE 100 MG TABLET PO SCH ×2 (09:43→21:28)
[2018-05-08] MEDS: LACTOBACILLUS ACIDOPHILUS 250 MG TAB PO SCH ×2 (09:43→17:33)
[2018-05-08] MEDS: INSULIN LISPRO 100 UNIT/ML 3 ML VIAL SUBCUT PRN (11:56)
[2018-05-08] MEDS: NICOTINE 14 MG/24 HR PATCH.TD24 TD SCH (14:23)
[2018-05-08] MEDS ORDERED: CALCIUM CARBONATE 500 MG TAB.CHEW PO ONE (14:30)
--- NOTE | 2018-05-08 15:57 | PDOC PROGRESS REPORT ---
Subjective Progress Note for:: 05/08/18 Subjective:: Doing better. At home O2 baseline requirement. Denies fevers, chills, CP, abdominal pain, NV. PO intake has been good and moving bowels. Has yet to ambulate except to the bathroom. Likely will discharge to home on 05/09. Reason For Visit: ACUTE HYPOXIC RESPIRATORY FAILURE, COPD EXACERBATI Physical Exam Vital Signs: Temp Pulse Resp BP Pulse Ox 97.4 F 63 20 178/60 H 94 05/08/18 11:48 05/08/18 14:00 05/08/18 11:48 05/08/18 11:48 05/08/18 11:48 Intake & Output 05/07/18 05/08/18 05/09/18 06:59 06:59 06:59 Intake Total 417 1500 Output Total 950 Balance -533 1500 Weight 86.8 kg 81.7 kg General appearance: PRESENT: no acute distress, obese, other - Chronically ill appearing . Head exam: PRESENT: normocephalic Teeth exam: PRESENT: poor dentation Respiratory exam: PRESENT: prolonged expiratory phas, unlabored, other - On Supplemental O2 Cardiovascular exam: PRESENT: +S1, +S2. ABSENT: tachycardia GI/Abdominal exam: PRESENT: normal bowel sounds, soft. ABSENT: tenderness Extremities exam: ABSENT: pedal edema Neurological exam: PRESENT: alert, awake, CN II-XII grossly intact Psychiatric exam: PRESENT: appropriate affect Results Laboratory Results: 05/07/18 04:14 05/08/18 04:00 05/08/18 04:00 Sodium 138.3 Potassium 5.4 H Chloride 96 L Carbon Dioxide 31 H Anion Gap 11 BUN 34 H Creatinine 0.99 Est GFR ( Amer) > 60 Est GFR (Non-Af Amer) 55 L Glucose 227 H Calcium 10.1 05/06/18 05/06/18 09:20 13:35 CK-MB (CK-2) 0.95 Troponin I < 0.012 NT-Pro-B Natriuret Pep 872 Impressions: Chest X-Ray 05/07/18 00:00 IMPRESSION: No acute findings Assessment & Plan - Diagnosis (1) Acute and chronic respiratory failure with hypoxia Is this a current diagnosis for this admission?: Yes Plan: Admitted for COPD exacerbation. Doing better and close to baseline. - Continue supplemental O2 (at baseline requirement), nebulizer treatment - Transition from IV steroids to PO Prednisone 40mg (3 additional days) (2) COPD exacerbation Is this a current diagnosis for this admission?: Yes Plan: Per above (3) Diabetic neuropathy Qualifiers: Diabetes mellitus type: type 2 Is this a current diagnosis for this admission?: Yes Plan: Stable, continue gabapentin (4) GERD (gastroesophageal reflux disease) Qualifiers: Esophagitis presence: without esophagitis Qualified Code(s): K21.9 - Gastro -esophageal reflux disease without esophagitis Is this a current diagnosis for this admission?: Yes Plan: Long standing GERD - Noted to have heart burn today after eating large meal and lying down flar - Continue PPI daily, added Tums as well. - Time Time Spent with patient: Less than 15 minutes Anticipated discharge: Home, Home with Homehealth Within: within 24 hours
[2018-05-08] MEDS: HYDROCODONE/ACETAMINOPHEN 5-325 MG TABLET PO PRN (21:28)
[2018-05-09] MEDS: HYDROCODONE/ACETAMINOPHEN 5-325 MG TABLET PO PRN ×2 (04:53→14:53)
[2018-05-09] MEDS: LANSOPRAZOLE 30 MG TAB.RAP.DR PO SCH (04:54)
[2018-05-09] MEDS: IPRATROPIUM/ALBUTEROL 0.5-2.5 MG/3 ML AMPUL NEB SCH ×4 (08:34→19:59)
[2018-05-09] MEDS: SUCRALFATE 1 GM TABLET PO SCH ×4 (08:45→21:25)
[2018-05-09] MEDS: GUAIFENESIN 600 MG TABLET.SA PO SCH ×2 (08:53→17:27)
[2018-05-09] MEDS: GABAPENTIN 400 MG CAPSULE PO SCH ×2 (08:53→21:25)
[2018-05-09] MEDS: DOXYCYCLINE HYCLATE 100 MG TABLET PO SCH ×2 (08:53→21:25)
[2018-05-09] MEDS: LACTOBACILLUS ACIDOPHILUS 250 MG TAB PO SCH ×2 (08:53→17:27)
[2018-05-09] MEDS: CARVEDILOL 3.125 MG TABLET PO SCH ×2 (08:54→21:25)
[2018-05-09] MEDS: PREDNISONE 20 MG TABLET PO SCH (08:54)
[2018-05-09] MEDS: FUROSEMIDE 20 MG TABLET PO SCH (08:55)
[2018-05-09] MEDS: ENOXAPARIN SODIUM INJ 40 MG/0.4 ML DISP.SYRIN SUBCUT SCH (08:55)
[2018-05-09] MEDS: NICOTINE 14 MG/24 HR PATCH.TD24 TD SCH (15:13)
--- NOTE | 2018-05-09 21:36 | PDOC PROGRESS REPORT ---
Subjective Progress Note for:: 05/09/18 Subjective:: 72-year-old who presented with acute respiratory failure with hypoxia, COPD exacerbation. States that he had a period of this morning where he felt short of breath. Currently is feeling well. On pulmonary exam he appears to be moving good air. Will continue to observe him 1 more day given his complaint of symptoms this morning and his frequent hospital admission history. Anticipate a possible discharge tomorrow. Reason For Visit: ACUTE HYPOXIC RESPIRATORY FAILURE, COPD EXACERBATI Physical Exam Vital Signs: Temp Pulse Resp BP Pulse Ox 98 F 63 20 146/72 H 94 05/09/18 16:41 05/09/18 16:41 05/09/18 16:41 05/09/18 16:41 05/09/18 16:41 Intake & Output 05/08/18 05/09/18 05/10/18 06:59 06:59 06:59 Intake Total 1500 1009 742 Balance 1500 1009 742 Weight 81.7 kg 88.1 kg General appearance: PRESENT: no acute distress, cooperative Head exam: PRESENT: atraumatic, normocephalic Eye exam: PRESENT: EOMI, PERRLA Mouth exam: PRESENT: moist, neck supple Throat exam: ABSENT: post pharyngeal erythema, tonsillar exudate Neck exam: PRESENT: full ROM. ABSENT: JVD Respiratory exam: ABSENT: accessory muscle use, rales, rhonchi, wheezes Cardiovascular exam: PRESENT: RRR, +S1, +S2 Pulses: PRESENT: normal radial pulses, normal dorsalis pedis pul GI/Abdominal exam: PRESENT: soft. ABSENT: mass, rigid Extremities exam: ABSENT: joint swelling, pedal edema Musculoskeletal exam: PRESENT: full ROM. ABSENT: ambulatory Neurological exam: PRESENT: alert, oriented to person, oriented to place, oriented to time, oriented to situation Psychiatric exam: ABSENT: agitated, anxious, manic Focused psych exam: ABSENT: delusional, paranoid Skin exam: PRESENT: normal color. ABSENT: mottled Results Laboratory Results: 05/07/18 04:14 05/08/18 04:00 05/07/18 16:07 Sputum Gram Stain - Final 05/07/18 16:07 Sputum Sputum Culture - Final NORMAL CHRIS 05/06/18 05/06/18 09:20 13:35 CK-MB (CK-2) 0.95 Troponin I < 0.012 NT-Pro-B Natriuret Pep 872 Impressions: Chest X-Ray 05/07/18 00:00 IMPRESSION: No acute findings Assessment & Plan - Diagnosis (1) Acute and chronic respiratory failure with hypoxia Is this a current diagnosis for this admission?: Yes Plan: Appears to be back to baseline and his O2 requirement. Continue current pulmonary medicines at present. Continue to monitor given his complaint of SOB this AM and frequent admissions. (2) COPD exacerbation Is this a current diagnosis for this admission?: Yes Plan: continue current pulmonary medications and support. (3) Morbid obesity Is this a current diagnosis for this admission?: Yes Plan: encouraged caloric reduction and weight loss (4) JENNIE (obstructive sleep apnea) Is this a current diagnosis for this admission?: Yes Plan: instructed him to continue his CPAP support at nights (5) Tobacco abuse Is this a current diagnosis for this admission?: Yes Plan: continue nicotine patch - Time Time Spent with patient: 15-24 minutes - Inpatient Certification I certify that my determination is in accordance with my understanding of Medicare's requirements for reasonable and necessary INPATIENT services [42 CFR 412.3e].: Yes Medical Necessity: Need Close Monitoring Due to Risk of Patient Decompensation
[2018-05-10] MEDS: HYDROCODONE/ACETAMINOPHEN 5-325 MG TABLET PO PRN ×2 (05:02→05:13)
[2018-05-10] MEDS: INSULIN LISPRO 100 UNIT/ML 3 ML VIAL SUBCUT PRN (05:02)
[2018-05-10] MEDS: LANSOPRAZOLE 30 MG TAB.RAP.DR PO SCH (05:12)
[2018-05-10 07:03] LABS: HEMATOCRIT 36.9 % (36.0-47.0); MEAN CORPUSCULAR HEMOGLOBIN 30.1 pg (27.0-33.4); MEAN CORPUSCULAR HGB CONC 32.6 g/dL (32.0-36.0); MEAN CORPUSCULAR VOLUME 92 fl (80-97); PLATELET COUNT 271 10^3/uL (150-450); RED BLOOD COUNT 3.99 10^6/uL (3.72-5.28); RED CELL DISTRIBUTION WIDTH 14.4 % (11.5-14.0); WHITE BLOOD COUNT 18.1 10^3/uL (4.0-10.5)
[2018-05-10 07:27] LABS: ALBUMIN 3.6 g/dL (3.5-5.0); ANION GAP 10 (5-19); BLOOD UREA NITROGEN 57 mg/dL (7-20); CALCIUM 9.5 mg/dL (8.4-10.2); CARBON DIOXIDE 29 mmol/L (22-30); CHLORIDE 98 mmol/L (98-107); GLUCOSE 124 mg/dL (75-110); PHOSPHORUS 4.9 mg/dL (2.5-4.5); POTASSIUM 4.6 mmol/L (3.6-5.0); SODIUM 136.8 mmol/L (137-145)
[2018-05-10] MEDS: SUCRALFATE 1 GM TABLET PO SCH ×3 (08:15→16:38)
[2018-05-10] MEDS: IPRATROPIUM/ALBUTEROL 0.5-2.5 MG/3 ML AMPUL NEB SCH ×3 (09:08→16:58)
[2018-05-10] MEDS: DOXYCYCLINE HYCLATE 100 MG TABLET PO SCH (09:51)
[2018-05-10] MEDS: CARVEDILOL 3.125 MG TABLET PO SCH (09:51)
[2018-05-10] MEDS: LACTOBACILLUS ACIDOPHILUS 250 MG TAB PO SCH (09:52)
[2018-05-10] MEDS: GUAIFENESIN 600 MG TABLET.SA PO SCH (09:52)
[2018-05-10] MEDS: FUROSEMIDE 20 MG TABLET PO SCH (09:52)
[2018-05-10] MEDS: GABAPENTIN 400 MG CAPSULE PO SCH (09:52)
[2018-05-10] MEDS: PREDNISONE 20 MG TABLET PO SCH (09:52)
[2018-05-10] MEDS: ENOXAPARIN SODIUM INJ 40 MG/0.4 ML DISP.SYRIN SUBCUT SCH (09:52)
--- NOTE | 2018-05-10 09:52 | RADIOLOGY REPORT (SQ) ---
EXAM DESCRIPTION: CHEST SINGLE VIEW COMPLETED DATE/TIME: 05/10/2018 9:38 am REASON FOR STUDY: cough, leukocytosis COMPARISON: Chest films 05/07/2018, 05/06/2018, 03/28/2018, 02/20/2018, 11/13/2015 EXAM PARAMETERS: NUMBER OF VIEWS: One view. TECHNIQUE: Single frontal radiographic view of the chest acquired. RADIATION DOSE: NA LIMITATIONS: None. FINDINGS: LUNGS AND PLEURA: Lungs are hyperlucent from obstructive disease. No focal infiltrates. No pleural effusion or pneumothorax. MEDIASTINUM AND HILAR STRUCTURES: No masses. Contour normal. HEART AND VASCULAR STRUCTURES: Stable mild cardiomegaly BONES: Osteoporotic with multiple old healed bilateral rib fractures HARDWARE: None in the chest. OTHER: No other significant finding. IMPRESSION: Obstructive lung disease. No acute findings TECHNICAL DOCUMENTATION: JOB ID: [id number] [employer]- All Rights Reserved Reading location - IP/workstation name: [email or web address]
[2018-05-10 11:08] LABS: APPEARANCE,URINE CLEAR; BILIRUBIN,URINE NEGATIVE (NEGATIVE); COLOR,URINE YELLOW; GLUCOSE, URINE NEGATIVE (NEGATIVE); KETONES,URINE NEGATIVE (NEGATIVE); LEUKOCYTE ESTERASE,URINE NEGATIVE (NEGATIVE); NITRITE,URINE NEGATIVE (NEGATIVE); PROTEIN,URINE NEGATIVE (NEGATIVE); URINE SPECIFIC GRAVITY 1.019; UROBILINOGEN,URINE NEGATIVE mg/dL (<2.0)
[2018-05-10 16:22] VITALS: BP 130/61
[2018-05-10] MEDS: NICOTINE 14 MG/24 HR PATCH.TD24 TD SCH (16:38)
--- NOTE | 2018-05-11 09:44 | PDOC DISCHARGE SUMMARY ---
General - Admit/Disc Date/PCP Admission Date/Primary Care Provider: 05/06/18 08:22 KYLE NIETO MD Discharge Date: 05/10/18 - Discharge Diagnosis (1) Acute and chronic respiratory failure with hypoxia Is this a current diagnosis for this admission?: Yes (2) COPD exacerbation Is this a current diagnosis for this admission?: Yes (3) Morbid obesity Is this a current diagnosis for this admission?: Yes (4) JENNIE (obstructive sleep apnea) Is this a current diagnosis for this admission?: Yes (5) Tobacco abuse Is this a current diagnosis for this admission?: Yes - Additional Information Resuscitation Status: Full Code Discharge Diet: As Tolerated Discharge Activity: Activity As Tolerated Prescriptions: Budesonide/Formoterol Fumarate [Symbicort 160-4.5 Mcg Inhaler] 10.2 gm IH BID 30 Days #1 hfa.aer.ad Doxycycline Monohydrate 100 mg PO BID 3 Days #6 tablet Ipratropium/Albuterol Sulfate [Duoneb 3 ml Ampul] 3 ml NEB [id number] 5 Days #30 vial.neb Lactobacillus Acidophilus [Bacid 250 mg Tablet] 500 mg PO BID 5 Days #10 tab Nicotine [Nicoderm 14 mg/24 Hr Transdermal Patch] 1 each TD DAILY@1500 14 Days # 14 patch.[email or web address] Prednisone 10 mg PO DAILY 10 Days #18 tablet Home Medications: Carvedilol [Coreg 3.125 mg Tablet] 3.125 mg PO Q12 05/06/18 Furosemide [Lasix 20 mg Tablet] 20 mg PO DAILY 05/06/18 Gabapentin [Neurontin 400 mg Capsule] 400 mg PO Q12 05/06/18 Metformin HCl [Glucophage 500 mg Tablet] 500 mg PO BID 05/06/18 Omeprazole 40 mg PO DAILY 05/06/18 Sucralfate [Carafate 1 gm Tablet] 1 gm PO QID 05/06/18 Budesonide/Formoterol Fumarate [Symbicort 160-4.5 Mcg Inhaler] 10.2 gm IH BID 30 Days #1 hfa.aer.ad 05/10/18 Doxycycline Monohydrate 100 mg PO BID 3 Days #6 tablet 05/10/18 Ipratropium/Albuterol Sulfate [Duoneb 3 ml Ampul] 3 ml NEB [id number] 5 Days #30 vial.neb 05/10/18 Lactobacillus Acidophilus [Bacid 250 mg Tablet] 500 mg PO BID 5 Days #10 tab Nicotine [Nicoderm 14 mg/24 Hr Transdermal Patch] 1 each TD DAILY@1500 14 Days # 14 patch.[email or web address] 05/10/18 Prednisone 10 mg PO DAILY 10 Days #18 tablet 05/10/18 History of Present Illness Patient complains of: shortness of breath History of Present Illness: GAVI PEDRO is a 72 year old female with past medical history of COPD, end-stage on 3 L nasal cannula oxygen at home Diabetes not insulin-dependent Hypertension Diastolic CHF Obstructive sleep apnea on CPAP at home Hyperlipidemia Nicotine dependence half pack a day smoker. Old left bundle branch block The patient presented to the hospital on May 06 with shortness of breath that has been progressively worsening. She was using her nebulizer at home with no relief. In the emergency room she was tachypneic with increased work of breathing and wheezing and was placed on BiPAP. She was also ordered steroids and nebs. Hospital Course Hospital Course: 72-year-old who presented with acute on chronic respiratory failure with hypoxia , COPD exacerbation. She was given IV steroids, agressive duoneb therapy, and supplemental O2. She was weaned to oral steroids and given a taper at discharge. Patient was de-escalated to her home level of O2 support before discharge. At the time of discharge she had stable vitals and clinically was signficantly better. Physical Exam Vital Signs: Temp Pulse Resp BP Pulse Ox 97.6 F 65 20 130/61 H 93 05/10/18 16:00 05/10/18 16:00 05/10/18 16:00 05/10/18 16:00 05/10/18 16:00 Intake & Output 05/09/18 05/10/18 05/11/18 06:59 06:59 06:59 Intake Total 1009 2217 Balance 1009 2217 Weight 88.1 kg 88.9 kg General appearance: PRESENT: no acute distress, cooperative Head exam: PRESENT: atraumatic, normocephalic Eye exam: PRESENT: EOMI, PERRLA Mouth exam: PRESENT: moist, neck supple Throat exam: ABSENT: tonsillar erythema, tonsillar exudate Neck exam: ABSENT: tenderness, thyromegaly Respiratory exam: PRESENT: wheezes - mild diffuse wheezing. ABSENT: rales, rhonchi Cardiovascular exam: PRESENT: RRR, +S1, +S2 Pulses: PRESENT: normal radial pulses Vascular exam: PRESENT: normal capillary refill. ABSENT: pallor GI/Abdominal exam: PRESENT: normal bowel sounds. ABSENT: distended Extremities exam: ABSENT: joint swelling, pedal edema Musculoskeletal exam: PRESENT: ambulatory, full ROM Neurological exam: PRESENT: alert, oriented to person, oriented to place, oriented to time, oriented to situation Psychiatric exam: ABSENT: agitated, anxious Focused psych exam: ABSENT: delusional, paranoid Skin exam: PRESENT: normal color. ABSENT: dry, pallor Results Laboratory Results: 05/10/18 06:27 05/10/18 06:27 05/10/18 05/10/18 05/10/18 06:27 06:27 10:25 WBC 18.1 H RBC 3.99 Hgb 12.0 Hct 36.9 MCV 92 MCH 30.1 MCHC 32.6 RDW 14.4 H Plt Count 271 Sodium 136.8 L Potassium 4.6 Chloride 98 Carbon Dioxide 29 Anion Gap 10 BUN 57 H Creatinine 1.24 Est GFR ( Amer) 51 L Est GFR (Non-Af Amer) 43 L Glucose 124 H Calcium 9.5 Phosphorus 4.9 H Albumin 3.6 Urine Color YELLOW Urine Appearance CLEAR Urine pH 5.0 Ur Specific Goldsmith 1.019 Urine Protein NEGATIVE Urine Glucose (UA) NEGATIVE Urine Ketones NEGATIVE Urine Blood NEGATIVE Urine Nitrite NEGATIVE Ur Leukocyte Esterase NEGATIVE Urine WBC (Auto) 1 05/06/18 05/06/18 09:20 13:35 CK-MB (CK-2) 0.95 Troponin I < 0.012 NT-Pro-B Natriuret Pep 872 Impressions: Chest X-Ray 05/10/18 00:00 IMPRESSION: Obstructive lung disease. No acute findings Qualifiers - * PATIENT BEING DISCHARGED WITH ANY OF THE FOLLOWING DIAGNOSIS: No VTE patient discharged on overlapping Therapy?: Yes Plan Discharge Plan: f/u with PCP in next 1 week resume diet at home condition: good disposition: home activity as tolerated Time Spent: Greater than 30 Minutes
== END 2018-05-10 17:03 | disposition home or self-care (01) | DRG 190 ==
LOC: ER 05:20 → EH 08:22 → 4W 09:32 → 5 11:41
PROVIDERS: ADMIT Internal Medicine; ATTEND Internal Medicine
PROC: 5A09357 Assistance with Respiratory Ventilation, Less than 24 Consecutive Hours, Continuous Positive Airway Pressure (ICD-10-PCS; principal; 2018-05-06)
PROC: 3E0F73Z Introduction of Anti-inflammatory into Respiratory Tract, Via Natural or Artificial Opening (ICD-10-PCS; 2018-05-06)
DX: J44.1 Chronic obstructive pulmonary disease with (acute) exacerbation (principal); J96.21 Acute and chronic respiratory failure with hypoxia; I50.32 Chronic diastolic (congestive) heart failure; E66.01 Morbid (severe) obesity due to excess calories; Z68.35 Body mass index [BMI] 35.0-35.9, adult; G47.33 Obstructive sleep apnea (adult) (pediatric); I11.0 Hypertensive heart disease with heart failure; I44.7 Left bundle-branch block, unspecified; I25.10 Atherosclerotic heart disease of native coronary artery without angina pectoris; K21.9 Gastro-esophageal reflux disease without esophagitis; M19.90 Unspecified osteoarthritis, unspecified site; D64.9 Anemia, unspecified; F17.210 Nicotine dependence, cigarettes, uncomplicated; E11.40 Type 2 diabetes mellitus with diabetic neuropathy, unspecified; E78.00 Pure hypercholesterolemia, unspecified; Z99.81 Dependence on supplemental oxygen; Z86.718 Personal history of other venous thrombosis and embolism; Z90.49 Acquired absence of other specified parts of digestive tract; Z90.710 Acquired absence of both cervix and uterus; Z79.899 Other long term (current) drug therapy; Z82.49 Family history of ischemic heart disease and other diseases of the circulatory system
CPT/HCPCS: 36415; 71045; 71046; 80048; 80053; 80069; 81001; 82553; 82803; 82962; 83735; 83880; 84100; 84484; 85025; 85027; 87040; 87070; 87205; 93005; 93010; 94640; 94660; 94667; 94799; 96374; 99285; J0456; J1650; J1815; J2920; J2930; J3490; J7512; J7620; S0119

== ENCOUNTER 2018-06-09 18:42 | Emergency (ER) | payer MEDICARE ==
[2018-06-09 18:48] VITALS: BP 149/79
[2018-06-09] MEDS ORDERED: FENTANYL CITRATE INJ/PF 100 MCG/2 ML AMPUL IV ONE (19:10)
--- NOTE | 2018-06-09 19:12 | ER Document Report ---
ED Medical Screen (RME) - General Chief Complaint: Abdominal Pain Stated Complaint: ABDOMINAL PAIN Time Seen by Provider: 06/09/18 19:06 Notes: RAPID MEDICAL EVALUATION DISCLOSURE I have seen this patient as part of a Rapid Medical Evaluation and, if applicable, placed any initially appropriate orders. The patient will be seen and fully evaluated, including a full history and physical exam, by a provider ( in Main ED or Fast Track) when a room becomes available. 72-year-old female here with complaints of nausea vomiting diarrhea "all over" abdominal pain ongoing for the past day. She has not tried anything for the symptoms other than Imodium with out much relief. She has no known sick contacts. She does not know of anything she may have eaten that may have made her sick. She does not have any fevers but does have some chills. Denies frequency hesitancy flank/back pain. She has had this once in the past but does not remember what caused it. EXAM Mild diffuse abdominal TTP No peritoneal signs TRAVEL OUTSIDE OF THE [place] IN LAST 30 DAYS: No - Related Data Allergies/Adverse Reactions: ibuprofen [From Motrin] Allergy (Intermediate, Verified 06/09/18 18:45) RASH/UTICARTIA Past Medical History - Past Medical History Cardiac Medical History: Reports: Hx Congestive Heart Failure, Hx Coronary Artery Disease, Hx DVT, Hx Hypertension Denies: Hx Heart Attack, Hx Heart Murmur Pulmonary Medical History: Reports: Hx Asthma, Hx COPD Denies: Hx Respiratory Failure, Hx Sleep Apnea, Hx Tuberculosis Neurological Medical History: Denies: Hx Cerebrovascular Accident, Hx Seizures Endocrine Medical History: Reports: Hx Diabetes Mellitus Type 2 Renal/ Medical History: Reports: Hx Renal Insufficiency. Denies: Hx Peritoneal Dialysis GI Medical History: Reports: Hx Diverticulitis, Hx Gastroesophageal Reflux Disease. Denies: Hx Hepatitis, Hx Hiatal Hernia, Hx Pancreatitis, Hx Ulcer - ? Musculoskeltal Medical History: Reports Hx Arthritis Psychiatric Medical History: Denies: Hx Depression Traumatic Medical History: Reports: Hx Fractures - several broken ribs Infectious Medical History: Denies: Hx Hepatitis Past Surgical History: Reports: Hx Appendectomy, Hx Cholecystectomy, Hx Herniorrhaphy, Hx Hysterectomy, Hx Orthopedic Surgery - rotator cuff. Denies: Hx Mastectomy, Hx Open Heart Surgery, Hx Pacemaker - Immunizations Immunizations up to date: Yes Hx Diphtheria, Pertussis, Tetanus Vaccination: No History of Influenza Vaccine for 08/2017 - 01/2018 Season: Yes Influenza Administration Date for 08/2017 - 01/2018 Season: 08/22/17 Physical Exam - Vital signs Vitals: Temp Pulse Resp BP Pulse Ox 98.5 F 84 22 H 149/79 H 92 06/09/18 18:47 06/09/18 18:47 06/09/18 18:47 06/09/18 18:47 06/09/18 18:47 Course - Vital Signs Vital signs: Temp Pulse Resp BP Pulse Ox 98.5 F 84 22 H 149/79 H 92 06/09/18 18:47 06/09/18 18:47 06/09/18 18:47 06/09/18 18:47 06/09/18 18:47 Doctor's Discharge - Discharge Referrals: KYLE NIETO MD [Primary Care Provider] - Follow up as needed
[2018-06-09 20:14] LABS: ABSOLUTE EOSINOPHILS # (AUTO) 0.1 10^3/uL (0.0-0.6); ABSOLUTE LYMPHOCYTES (AUTO) 2.3 10^3/uL (0.5-4.7); ABSOLUTE NEUT (AUTO) 12.1 10^3/uL (1.7-8.2); BASOPHILS % (AUTO) 0.1 % (0-2); HEMATOCRIT 34.5 % (36.0-47.0); HEMOGLOBIN 11.4 g/dL (12.0-15.5); LYMPHOCYTES % (AUTO) 14.9 % (13-45); MEAN CORPUSCULAR VOLUME 91 fl (80-97); MONOCYTES % (AUTO) 6.3 % (3-13); PLATELET COUNT 260 10^3/uL (150-450); RED BLOOD COUNT 3.79 10^6/uL (3.72-5.28); RED CELL DISTRIBUTION WIDTH 14.1 % (11.5-14.0); SEGMENTED NEUTROPHILS % (AUTO) 77.7 % (42-78); TOTAL CELLS COUNTED % (AUTO) 100 %; WHITE BLOOD COUNT 15.5 10^3/uL (4.0-10.5)
[2018-06-09 20:35] LABS: ALANINE AMINOTRANSFERASE 17 U/L (9-52); ALBUMIN 3.8 g/dL (3.5-5.0); ALKALINE PHOSPHATASE 77 U/L (38-126); ANION GAP 10 (5-19); ASPARTATE AMINO TRANSFERASE 21 U/L (14-36); BILIRUBIN,DIRECT 0.4 mg/dL (0.0-0.4); BILIRUBIN,TOTAL 0.4 mg/dL (0.2-1.3); BLOOD UREA NITROGEN 18 mg/dL (7-20); CALCIUM 9.3 mg/dL (8.4-10.2); CARBON DIOXIDE 26 mmol/L (22-30); CHLORIDE 105 mmol/L (98-107); GLUCOSE 93 mg/dL (75-110); LIPASE 146.9 U/L (23-300); POTASSIUM 4.3 mmol/L (3.6-5.0); SODIUM 141.3 mmol/L (137-145); TOTAL PROTEIN 6.8 g/dL (6.3-8.2)
[2018-06-09] MEDS ORDERED: NORMAL SALINE 500 ML IV ONE (21:46)
[2018-06-09] MEDS ORDERED: METOCLOPRAMIDE HCL INJ/PF 10 MG/2 ML SDV IV ONE (21:46)
--- NOTE | 2018-06-09 21:56 | ER Document Report ---
ED General - General Chief Complaint: Abdominal Pain Stated Complaint: ABDOMINAL PAIN Time Seen by Provider: 06/09/18 19:06 Mode of Arrival: Ambulatory Information source: Patient Notes: 72-year-old female who has recently been on antibiotics for pneumonia presents with complaints of 15-20 episodes of diarrhea today. Patient admits nausea denies any fevers or chills admits to generalized abdominal cramping. Patient had recently been admitted for CHF and pneumonia exacerbation TRAVEL OUTSIDE OF THE [place] IN LAST 30 DAYS: No - HPI Onset: This morning Onset/Duration: Sudden Quality of pain: Cramping Severity: Mild Pain Level: 1 Associated symptoms: Diarrhea, Nausea Exacerbated by: Denies Similar symptoms previously: No Recently seen / treated by doctor: Yes - Related Data Allergies/Adverse Reactions: ibuprofen [From Motrin] Allergy (Intermediate, Verified 06/09/18 18:45) RASH/UTICARTIA Past Medical History - Social History Smoking Status: Current Every Day Smoker Cigarette use (# per day): No Chew tobacco use (# tins/day): No Smoking Education Provided: No Frequency of alcohol use: None Drug Abuse: None Family History: Hypertension Patient has suicidal ideation: No Patient has homicidal ideation: No - Past Medical History Cardiac Medical History: Reports: Hx Congestive Heart Failure, Hx Coronary Artery Disease, Hx DVT, Hx Hypertension Denies: Hx Heart Attack, Hx Heart Murmur Pulmonary Medical History: Reports: Hx Asthma, Hx COPD Denies: Hx Respiratory Failure, Hx Sleep Apnea, Hx Tuberculosis Neurological Medical History: Denies: Hx Cerebrovascular Accident, Hx Seizures Endocrine Medical History: Reports: Hx Diabetes Mellitus Type 2 Renal/ Medical History: Reports: Hx Renal Insufficiency. Denies: Hx Peritoneal Dialysis GI Medical History: Reports: Hx Diverticulitis, Hx Gastroesophageal Reflux Disease. Denies: Hx Hepatitis, Hx Hiatal Hernia, Hx Pancreatitis, Hx Ulcer - ? Musculoskeletal Medical History: Reports Hx Arthritis Psychiatric Medical History: Denies: Hx Depression Traumatic Medical History: Reports: Hx Fractures - several broken ribs Infectious Medical History: Denies: Hx Hepatitis Past Surgical History: Reports: Hx Appendectomy, Hx Cholecystectomy, Hx Herniorrhaphy, Hx Hysterectomy, Hx Orthopedic Surgery - rotator cuff. Denies: Hx Mastectomy, Hx Open Heart Surgery, Hx Pacemaker - Immunizations Immunizations up to date: Yes Hx Diphtheria, Pertussis, Tetanus Vaccination: No Hx Pneumococcal Vaccination: 08/30/14 Review of Systems - Review of Systems Notes: REVIEW OF SYSTEMS: CONSTITUTIONAL : Denies fever, chills, or sweats. Denies recent illness. EENT: Denies eye, ear, throat, or mouth pain or symptoms. Denies nasal or sinus congestion or discharge. Denies throat, tongue, or mouth swelling or difficulty swallowing. CARDIOVASCULAR: Denies chest pain. Denies palpitations or racing or irregular heart beat. Denies ankle edema. RESPIRATORY: Denies cough, cold, or chest congestion. Denies shortness of breath, difficulty breathing, or wheezing. GASTROINTESTINAL: Admits to nausea diarrhea GENITOURINARY: Denies difficulty urinating, painful urination, burning, frequency, blood in urine, or discharge. FEMALE GENITOURINARY: Denies vaginal bleeding, heavy or abnormal periods, irregular periods. Denies vaginal discharge or odor. MUSCULOSKELETAL: Denies back or neck pain or stiffness. Denies joint pain or swelling. SKIN: Denies rash, lesions or sores. HEMATOLOGIC : Denies easy bruising or bleeding. LYMPHATIC: Denies swollen, enlarged glands. NEUROLOGICAL: Denies confusion or altered mental status. Denies passing out or loss of consciousness. Denies dizziness or lightheadedness. Denies headache. Denies weakness or paralysis or loss of use of either side. Denies problems with gait or speech. Denies sensory loss, numbness, or tingling. Denies seizures. PSYCHIATRIC: Denies anxiety or stress. Denies depression, suicidal ideation, or homicidal ideation. ALL OTHER SYSTEMS REVIEWED AND NEGATIVE. PHYSICAL EXAMINATION: GENERAL: Well-appearing, well-nourished and in no acute distress. HEAD: Atraumatic, normocephalic. EYES: Pupils equal round and reactive to light, extraocular movements intact, conjunctiva are normal. ENT: Nares patent, oropharynx clear without exudates. Moist mucous membranes. NECK: Normal range of motion, supple without lymphadenopathy LUNGS: Breath sounds clear to auscultation bilaterally and equal. No wheezes rales or rhonchi. HEART: Regular rate and rhythm without murmurs ABDOMEN: Soft, nontender, nondistended abdomen. No guarding, no rebound. No masses appreciated. Female : deferred Musculoskeletal: Normal range of motion, no pitting or edema. No cyanosis. NEUROLOGICAL: Cranial nerves grossly intact. Normal speech, normal gait. Normal sensory, motor exams PSYCH: Normal mood, normal affect. SKIN: Warm, Dry, normal turgor, no rashes or lesions noted. Dictation was performed using [employer] voice recognition software Physical Exam - Vital signs Vitals: Temp Pulse Resp BP Pulse Ox 98.5 F 84 22 H 149/79 H 92 06/09/18 18:47 06/09/18 18:47 06/09/18 18:47 06/09/18 18:47 06/09/18 18:47 Course - Re-evaluation Re-evalutation: 06/09/18 21:59 Patient is high suspicion for C. difficile 06/09/18 23:37 Patient who is here for diarrhea 20 today has been unable to give us a stool sample 06/10/18 00:38 Patient has still been unable to give us a stool sample, I will discharge her home with a container to bring back. Otherwise I will treat her as if it is C. difficile, CT was concerning for inflammatory process After performing a Medical Screening Examination, I estimate there is LOW risk for ACUTE APPENDICITIS, BOWEL OBSTRUCTION, ACUTE CHOLECYSTITIS, PERFORATED DIVERTICULITIS, INCARCERATED HERNIA, PANCREATITIS, PELVIC INFLAMMATORY DISEASE, PERFORATED ULCER, ECTOPIC , or TUBO-OVARIAN ABSCESS, thus I consider the discharge disposition reasonable. Also, there is no evidence or peritonitis , sepsis, or toxicity. I have reevaluated this patient multiple times and no significant life threatening changes are noted. The patient and I have discussed the diagnosis and risks, and we agree with discharging home with close follow-up with the understanding that symptoms and presentations can change. We also discussed returning to the Emergency Department immediately if new or worsening symptoms occur. We have discussed the symptoms which are most concerning (e.g., bloody stool, fever, changing or worsening pain, vomiting) that necessitate immediate return. - Vital Signs Vital signs: Temp Pulse Resp BP Pulse Ox 98.5 F 84 22 H 149/79 H 92 06/09/18 18:47 06/09/18 18:47 06/09/18 18:47 06/09/18 18:47 06/09/18 18:47 - Laboratory Result Diagrams: 06/09/18 20:01 06/09/18 20:01 Laboratory results interpreted by me: 06/09/18 06/09/18 20:01 20:01 WBC 15.5 H Hgb 11.4 L Hct 34.5 L RDW 14.1 H Absolute Neutrophils 12.1 H Est GFR (Non-Af Amer) 50 L Discharge - Discharge Clinical Impression: Colitis Condition: Stable Disposition: HOME, SELF-CARE Instructions: Abdominal Pain ([facility]), Colitis, Nonspecific ([facility]) Prescriptions: Ciprofloxacin HCl [Cipro 500 mg Tablet] 500 mg PO BID #20 tablet Metronidazole [Flagyl 500 mg Tablet] 500 mg PO Q8 #30 tablet Forms: Follow-Up Laboratory Testing Referrals: KYLE NIETO MD [Primary Care Provider] - Follow up as needed
[2018-06-09] MEDS ORDERED: ALBUTEROL SULFATE 0.083% NEB 2.5 MG/3 ML AMPUL NEB ONE (23:36)
--- NOTE | 2018-06-10 00:26 | RADIOLOGY REPORT (SQ) ---
EXAM DESCRIPTION: CT ABDOMEN PELVIS WITH IV CONTRAST COMPLETED DATE/TME: 06/09/2018 19:09 CLINICAL HISTORY: 72 years, Female, diffuse abd TTP; colitis divertic pancreatitis? COMPARISON: 06/06/2014 CT abdomen and pelvis. TECHNIQUE: CT of the abdomen and pelvis was performed following intravenous administration of contrast. No oral contrast was administered. Images stored on PACS. All CT scanners at this facility use dose modulation, iterative reconstruction, and/or weight based dosing when appropriate to reduce radiation dose to as low as reasonably achievable (ALARA). [facility]: Dose Right [facility]: CareDose [facility]: Dose Right [facility]: Teradose 4D [facility]: [place] LIMITATIONS: None. FINDINGS: Chest: Evaluation through the lung bases reveals no focal opacity, pleural effusion or pneumothorax. Heart size is within normal limits. No pericardial effusion. Nonspecific thickening of the gastric body versus incomplete distention. Abdomen and pelvis: The liver, gallbladder, pancreas, spleen, bilateral kidneys and bilateral adrenal glands are within normal limits. Renal hilar calcification suggestive of atherosclerotic calcification on the LEFT. Few subcentimeter hypoattenuating lesion raising the question of cortical renal cysts on the LEFT too small to accurately characterize. The vessels reveal atherosclerotic calcification otherwise patent and normal in caliber. No abdominopelvic lymph nodes are noted to be pathologically enlarged by CT measurement criteria. The bowel is within normal limits without abnormal bowel wall thickness or bowel dilation. Severe sigmoid colon diverticular disease without findings to suggest diverticulitis. Trace stranding along the course of the LEFT paracolic gutter similar in comparison to the examination dated 06/06/2014 possibility of mild diverticulitis may be considered in the differential.. Thickening of the bladder may be secondary to incomplete distention versus infectious or inflammatory process. No free air. No free abdominopelvic fluid collections. The appendix is nonvisualized. The osseous structures are within normal limits. Ventral LEFT hemipelvic surgical clips present. IMPRESSION: 1. Severe sigmoid colon diverticular disease without diverticulitis, however trace stranding along the course of the descending colon, LEFT paracolic gutter raising the question of mild descending colon diverticulitis similar in comparison to CT dated 06/06/2014. 2. Nonspecific the clearing of the gastric body versus incomplete distention. 3. Thickening of the bladder may be secondary to incomplete distention versus infectious or inflammatory process. TECHNICAL DOCUMENTATION: Quality ID # [id number]: Final reports with documentation of one or more dose reduction techniques (e.g., Automated exposure control, adjustment of the mA and/or kV according to patient size, use of iterative reconstruction technique) 2010 [employer]- All Rights Reserved
== END 2018-06-10 01:19 | disposition home or self-care (01) ==
LOC: ER 18:42
DX: K52.9 Noninfective gastroenteritis and colitis, unspecified (principal); R11.0 Nausea; R10.84 Generalized abdominal pain; E11.9 Type 2 diabetes mellitus without complications; I25.10 Atherosclerotic heart disease of native coronary artery without angina pectoris; I10 Essential (primary) hypertension; J44.9 Chronic obstructive pulmonary disease, unspecified; F17.200 Nicotine dependence, unspecified, uncomplicated; Z87.01 Personal history of pneumonia (recurrent); Z88.6 Allergy status to analgesic agent; Z87.19 Personal history of other diseases of the digestive system; Z90.49 Acquired absence of other specified parts of digestive tract
CPT/HCPCS: 94640; 99284; 96361; 96374; 96375; 36415; 83690; 85025; 80053; 74177; J3010; J2765; J7040; A9270

== ENCOUNTER 2018-06-11 11:28 | Emergency (ER) | payer MEDICARE ==
[2018-06-11] MEDS ORDERED: IPRATROPIUM/ALBUTEROL 0.5-2.5 MG/3 ML AMPUL NEB ONE (12:06)
[2018-06-11] MEDS ORDERED: MORPHINE SULFATE 10 MG/ML INJ IV ONE ×3 (12:06→16:59)
[2018-06-11] MEDS ORDERED: ALBUTEROL SULFATE 0.083% NEB 2.5 MG/3 ML AMPUL NEB ONE (12:06)
--- NOTE | 2018-06-11 12:14 | ER Document Report ---
ED General - General Chief Complaint: Chest Pain Stated Complaint: CHEST PAIN Time Seen by Provider: 06/11/18 12:02 Mode of Arrival: Stretcher Information source: Patient TRAVEL OUTSIDE OF THE [place] IN LAST 30 DAYS: No - HPI Patient complains to provider of: Right-sided chest pain, right upper quadrant pain, productive cough nausea Onset: Yesterday Associated symptoms: Body/muscle aches, Chest pain, Productive cough, Nausea, Vomiting, Shortness of breath Notes: Patient is a 72-year-old female presenting to the emergency room complaining of right-sided chest pain/right upper quadrant pain, cough is productive of thick yellow phlegm, patient has a history of COPD and congestive heart failure, continues to smoke at least half pack a day - Related Data Allergies/Adverse Reactions: ibuprofen [From Motrin] Allergy (Intermediate, Verified 06/11/18 11:29) RASH/UTICARTIA Past Medical History - General Information source: Patient - Social History Smoking Status: Current Every Day Smoker Family History: Hypertension - Past Medical History Cardiac Medical History: Reports: Hx Congestive Heart Failure, Hx Coronary Artery Disease, Hx DVT, Hx Hypertension Denies: Hx Heart Attack, Hx Heart Murmur Pulmonary Medical History: Reports: Hx Asthma, Hx COPD Denies: Hx Respiratory Failure, Hx Sleep Apnea, Hx Tuberculosis Neurological Medical History: Denies: Hx Cerebrovascular Accident, Hx Seizures Endocrine Medical History: Reports: Hx Diabetes Mellitus Type 2 Renal/ Medical History: Reports: Hx Renal Insufficiency. Denies: Hx Peritoneal Dialysis GI Medical History: Reports: Hx Diverticulitis, Hx Gastroesophageal Reflux Disease. Denies: Hx Hepatitis, Hx Hiatal Hernia, Hx Pancreatitis, Hx Ulcer - ? Musculoskeletal Medical History: Reports Hx Arthritis Psychiatric Medical History: Denies: Hx Depression Traumatic Medical History: Reports: Hx Fractures - several broken ribs Infectious Medical History: Denies: Hx Hepatitis Past Surgical History: Reports: Hx Appendectomy, Hx Cholecystectomy, Hx Herniorrhaphy, Hx Hysterectomy, Hx Orthopedic Surgery - rotator cuff. Denies: Hx Mastectomy, Hx Open Heart Surgery, Hx Pacemaker - Immunizations Immunizations up to date: Yes Hx Diphtheria, Pertussis, Tetanus Vaccination: No Hx Pneumococcal Vaccination: 08/30/14 Review of Systems - Review of Systems Constitutional: No symptoms reported EENT: No symptoms reported Cardiovascular: See HPI Respiratory: See HPI Gastrointestinal: See HPI Genitourinary: No symptoms reported Female Genitourinary: No symptoms reported Musculoskeletal: No symptoms reported Skin: No symptoms reported Hematologic/Lymphatic: No symptoms reported Neurological/Psychological: No symptoms reported -: Yes All other systems reviewed and negative Physical Exam - Vital signs Vitals: Temp Pulse Resp BP Pulse Ox 98.8 F 85 26 H 109/54 L 78 L 06/11/18 11:55 06/11/18 11:55 06/11/18 11:55 06/11/18 11:55 06/11/18 11:55 Interpretation: Hypoxic, Tachypneic - General General appearance: Appears well, Alert - HEENT Head: Normocephalic, Atraumatic Eyes: Normal Pupils: PERRL - Respiratory Respiratory status: Tachypnea Chest status: Tender - Right lower ribs anteriorly Breath sounds: Rhonchi Chest palpation: Normal - Cardiovascular Rhythm: Regular Heart sounds: Normal auscultation Murmur: No - Abdominal Inspection: Normal Distension: No distension Bowel sounds: Normal Tenderness: Tender - Right upper quadrant Organomegaly: No organomegaly - Back Back: Normal, Nontender - Extremities General upper extremity: Normal inspection, Nontender, Normal color, Normal ROM , Normal temperature General lower extremity: Normal inspection, Nontender, Edema - Trace bilaterally , Normal color, Normal ROM, Normal temperature, Normal weight bearing. No: Mateus's sign - Neurological Neuro grossly intact: Yes Cognition: Normal Orientation: AAOx4 [place] Coma Scale Eye Opening: Spontaneous [place] Coma Scale Verbal: Oriented [place] Coma Scale Motor: Obeys Commands [place] Coma Scale Total: 15 Speech: Normal Motor strength normal: LUE, RUE, LLE, RLE Sensory: Normal - Psychological Associated symptoms: Normal affect, Normal mood - Skin Skin Temperature: Warm Skin Moisture: Dry Skin Color: Normal Course - Vital Signs Vital signs: Temp Pulse Resp BP Pulse Ox 98.8 F 85 21 H 124/57 L 91 L 06/11/18 11:55 06/11/18 11:55 06/11/18 17:02 06/11/18 17:02 06/11/18 17:02 - Laboratory Result Diagrams: 06/11/18 12:09 06/11/18 12:09 Laboratory results interpreted by me: 06/11/18 06/11/18 06/11/18 12:09 12:09 12:09 WBC 16.2 H Hgb 11.3 L Hct 34.6 L RDW 14.3 H Seg Neutrophils % 85.2 H Lymphocytes % 9.1 L Absolute Neutrophils 13.8 H Est GFR (Non-Af Amer) 54 L Glucose 148 H NT-Pro-B Natriuret Pep 1160 H Urine Protein Urine Glucose (UA) Ur Leukocyte Esterase 06/11/18 15:15 WBC Hgb Hct RDW Seg Neutrophils % Lymphocytes % Absolute Neutrophils Est GFR (Non-Af Amer) Glucose NT-Pro-B Natriuret Pep Urine Protein 30 H Urine Glucose (UA) 50 H Ur Leukocyte Esterase TRACE H Discharge - Discharge Clinical Impression: Abdominal pain Qualifiers: Abdominal location: generalized Qualified Code(s): R10.84 - Generalized abdominal pain Condition: Stable Disposition: HOME, SELF-CARE Instructions: Abdominal Pain ([facility]) Additional Instructions: Follow up with your primary care provider and a campus recruiting internship in one to 2 days. Return to the emergency room immediately if symptoms worsen or any additional concerns. Prescriptions: Metoclopramide HCl [Reglan 10 mg Tablet] 1 - 2 tab PO ASDIR PRN #25 tablet PRN Reason: Miconazole Nitrate [Monistat 3] 25 gm VG DAILY PRN #1 cream.appl PRN Reason: Referrals: KYLE NIETO MD [Primary Care Provider] - Follow up as needed
--- NOTE | 2018-06-11 12:42 | RADIOLOGY REPORT (SQ) ---
EXAM DESCRIPTION: CHEST SINGLE VIEW COMPLETED DATE/TIME: 06/11/2018 12:33 pm REASON FOR STUDY: sob COMPARISON: 05/10/2018 EXAM PARAMETERS: NUMBER OF VIEWS: One view. TECHNIQUE: Single frontal radiographic view of the chest acquired. RADIATION DOSE: NA LIMITATIONS: None. FINDINGS: LUNGS AND PLEURA: Stable COPD changes. No definite pleural effusion or airspace consolida tion. MEDIASTINUM AND HILAR STRUCTURES: No masses. Contour normal. HEART AND VASCULAR STRUCTURES: Heart normal in size. Normal vasculature. BONES: No acute findings. HARDWARE: None in the chest. OTHER: No other significant finding. IMPRESSION: Stable chronic changes. No acute findings. TECHNICAL DOCUMENTATION: JOB ID: [id number] [employer]- All Rights Reserved Reading location - IP/workstation name: [email or web address]
[2018-06-11 12:48] LABS: ABSOLUTE BASOPHILS # (AUTO) 0.1 10^3/uL (0.0-0.2); ABSOLUTE LYMPHOCYTES (AUTO) 1.5 10^3/uL (0.5-4.7); ABSOLUTE MONOCYTES (AUTO) 0.8 10^3/uL (0.1-1.4); ABSOLUTE NEUT (AUTO) 13.8 10^3/uL (1.7-8.2); BASOPHILS % (AUTO) 0.5 % (0-2); EOSINOPHILS % (AUTO) 0.1 % (0-6); HEMATOCRIT 34.6 % (36.0-47.0); HEMOGLOBIN 11.3 g/dL (12.0-15.5); LYMPHOCYTES % (AUTO) 9.1 % (13-45); MEAN CORPUSCULAR HGB CONC 32.8 g/dL (32.0-36.0); MEAN CORPUSCULAR VOLUME 91 fl (80-97); MONOCYTES % (AUTO) 5.1 % (3-13); PLATELET COUNT 227 10^3/uL (150-450); RED BLOOD COUNT 3.78 10^6/uL (3.72-5.28); RED CELL DISTRIBUTION WIDTH 14.3 % (11.5-14.0); SEGMENTED NEUTROPHILS % (AUTO) 85.2 % (42-78); TOTAL CELLS COUNTED % (AUTO) 100 %; WHITE BLOOD COUNT 16.2 10^3/uL (4.0-10.5)
[2018-06-11 13:00] LABS: ALANINE AMINOTRANSFERASE 20 U/L (9-52); ALBUMIN 3.7 g/dL (3.5-5.0); ALKALINE PHOSPHATASE 73 U/L (38-126); ANION GAP 14 (5-19); ASPARTATE AMINO TRANSFERASE 15 U/L (14-36); BILIRUBIN,DIRECT 0.3 mg/dL (0.0-0.4); BILIRUBIN,TOTAL 0.5 mg/dL (0.2-1.3); BLOOD UREA NITROGEN 12 mg/dL (7-20); CALCIUM 9.1 mg/dL (8.4-10.2); CARBON DIOXIDE 27 mmol/L (22-30); CHLORIDE 101 mmol/L (98-107); GLUCOSE 148 mg/dL (75-110); LIPASE 47.3 U/L (23-300); POTASSIUM 3.8 mmol/L (3.6-5.0); SODIUM 141.5 mmol/L (137-145); TOTAL PROTEIN 6.8 g/dL (6.3-8.2)
[2018-06-11 13:14] LABS: NT PRO BNP 1160 pg/mL (5-900)
[2018-06-11 13:15] LABS: TROPONIN I < 0.012 ng/mL
--- NOTE | 2018-06-11 14:54 | RADIOLOGY REPORT (SQ) ---
EXAM DESCRIPTION: U/S ABDOMEN LIMITED W/O DOP COMPLETED DATE/TIME: 06/11/2018 2:34 pm REASON FOR STUDY: ruq pain COMPARISON: None. TECHNIQUE: Dynamic and static grayscale images acquired of the abdomen and recorded on PACS. Additio gilles selected color Doppler and spectral images recorded. LIMITATIONS: None. FINDINGS: PANCREAS: Not well visualized secondary to patient body habitus and bowel gas LIVER: No masses. Echotexture normal. LIVER VASCULATURE: Normal directional flow of the main portal vein. GALLBLADDER: Gallstone(s). No pericholecystic fluid. No wall thickening. ULTRASOUND-DETECTED WILCOX'S SIGN: Negative. INTRAHEPATIC DUCTS AND COMMON DUCT: CBD and intrahepatic ducts normal caliber. No filling defects. AORTA: Distal aorta not visualized secondary to body habitus and bowel gas. RIGHT KIDNEY: Normal size. Normal echogenicity. No solid or suspicious masses. No hydronephrosis. No calcifications. PERITONEAL AND RIGHT PLEURAL SPACE: No ascites or effusions. OTHER: No other significant findings. IMPRESSION: 1. Cholelithiasis without evidence of cholecystitis 2. Nonvisualization of the pancreas and abdominal aorta secondary to body habitus and bowel gas. TECHNICAL DOCUMENTATION: JOB ID: [id number] [employer]- All Rights Reserved Reading location - IP/workstation name: [email or web address]
[2018-06-11] MEDS ORDERED: METOCLOPRAMIDE HCL INJ/PF 10 MG/2 ML SDV IV ONE ×2 (15:02→15:07)
[2018-06-11] MEDS ORDERED: METOCLOPRAMIDE HCL INJ/PF 10 MG/2 ML SDV ONE (15:04)
[2018-06-11 16:36] LABS: APPEARANCE,URINE CLEAR; BILIRUBIN,URINE NEGATIVE (NEGATIVE); COLOR,URINE YELLOW; GLUCOSE, URINE 50 mg/dL (NEGATIVE); KETONES,URINE NEGATIVE (NEGATIVE); LEUKOCYTE ESTERASE,URINE TRACE (NEGATIVE); NITRITE,URINE NEGATIVE (NEGATIVE); PROTEIN,URINE 30 mg/dL (NEGATIVE); URINE SPECIFIC GRAVITY 1.019; UROBILINOGEN,URINE NEGATIVE mg/dL (<2.0)
--- NOTE | 2018-06-11 18:08 | RADIOLOGY REPORT (SQ) ---
EXAM DESCRIPTION: CT ABD/PELVIS WITH IV ONLY COMPLETED DATE/TIME: 06/11/2018 5:41 pm REASON FOR STUDY: abd pain . Diffuse abdominal pain. COMPARISON: CT abdomen and pelvis 06/09/2018, 06/06/2014. TECHNIQUE: CT scan of the abdomen and pelvis performed using helical scanning technique with dynamic intravenous contrast injection. No oral contrast. Images reviewed with lung, soft tissue, and bone windows. Reconstructed coronal and sagittal MPR images reviewed. Delayed images for evaluation of the urinary system also acquired. All images stored on PACS. All CT scanners at this facility use dose modulation, iterative reconstruction, and/or weight based d osing when appropriate to reduce radiation dose to as low as reasonably achievable (ALARA). [facility]: Dose Right [facility]: CareDose [facility]: Dose Right [facility]: Teradose 4D [facility]: [employer] CONTRAST TYPE AND DOSE: contrast/concentration: Isovue 370.00 mg/ml; Total Contrast Delivered: 93.0 ml; Total Saline Delivered: 71.0 ml RENAL FUNCTION: Creatinine 1.01 RADIATION DOSE: CT Rad equipment meets quality standard of care and radiation dose reduction techniq ues were employed. CTDIvol: 17.0 - 20.4 mGy. DLP: 1672 mGy-cm.. LIMITATIONS: None. FINDINGS: LOWER CHEST: Mild atelectasis at the visualized lung bases. No pleural effusion. LIVER: Diffuse decreased attenuation, suggestive of fatty infiltration. Normal size. No masses. No dilated ducts. SPLEEN: Normal size. PANCREAS: No significant calcifications. No adjacent inflammation or peripancreatic fluid collections . Pancreatic duct not dilated. GALLBLADDER: The gallbladder is distended. No inflammatory changes or radiopaque stones are noted. ADRENAL GLANDS: No significant masses or asymmetry. RIGHT KIDNEY AND URETER: No solid masses. No significant calcifications. No hydronephrosis or hyd roureter. LEFT KIDNEY AND URETER: No solid masses. No significant calcifications. No hydronephrosis or hydr oureter. AORTA AND VESSELS: Atherosclerotic calcifications in the ectatic abdominal aorta and its branches. RETROPERITONEUM: No retroperitoneal hemorrhage or masses. BOWEL AND PERITONEAL CAVITY: The stomach is decompressed. No dilated small bowel loops to suggest ob struction. There is colonic diverticulosis with no CT evidence for acute diverticulitis. No free fl uid or free air. APPENDIX: Surgically absent. PELVIS: The urinary bladder is partially distended. The uterus is surgically absent. No free fluid. ABDOMINAL WALL: Small fat containing ventral hernia superior to the umbilicus. Postsurgical changes are seen within the left anterior abdominal wall. BONES: No significant or acute findings. IMPRESSION: 1. Colonic diverticulosis with no CT evidence for acute diverticulitis. 2. Distended gallbladder. 3. Fatty infiltration of the liver. TECHNICAL DOCUMENTATION: JOB ID: [id number] CT- Quality ID # [id number]: Final reports with documentation of one or more dose reduction techniques (e.g., Au tomated exposure control, adjustment of the mA and/or kV according to patient size, use of iterative reconstruction technique) 2010 [employer]- All Rights Reserved Reading location - IP/workstation name: [email or web address]
[2018-06-11 18:31] VITALS: BP 101/55
--- NOTE | 2018-06-11 21:56 | EKG REPORT ---
SEVERITY:- ABNORMAL ECG - SINUS RHYTHM LEFT BUNDLE BRANCH BLOCK : Confirmed by: Francisca Marin 11-Jun-2018 21:56:03
--- NOTE | 2018-06-12 22:56 | EKG REPORT ---
SEVERITY:- ABNORMAL ECG - SINUS RHYTHM LEFT BUNDLE BRANCH BLOCK : Confirmed by: Francisca Marin 12-Jun-2018 22:55:19
== END 2018-06-11 18:30 | disposition home or self-care (01) ==
LOC: ER 11:28
DX: R07.9 Chest pain, unspecified (principal); R10.11 Right upper quadrant pain; R10.84 Generalized abdominal pain; F17.200 Nicotine dependence, unspecified, uncomplicated; I50.9 Heart failure, unspecified; I25.10 Atherosclerotic heart disease of native coronary artery without angina pectoris; I11.0 Hypertensive heart disease with heart failure; E11.9 Type 2 diabetes mellitus without complications; Z86.718 Personal history of other venous thrombosis and embolism; Z90.49 Acquired absence of other specified parts of digestive tract; Z90.710 Acquired absence of both cervix and uterus
CPT/HCPCS: 93005; 96376; 94640 ×2; 99285; 96374; 96375; 36415; 87040; 87086; 83690; 85025; 87088; 80053; 81001; 84484; 87186; 83605; 83880; 71045; 76705; 74177; 93010; J2765; J2270; A9270 ×2; J7620

== ENCOUNTER 2018-06-24 20:07 | Emergency (ER) | payer MEDICARE ==
[2018-06-24] MEDS ORDERED: ASPIRIN 81 MG TABLET, CHEWABLE PO ONE (20:24)
--- NOTE | 2018-06-24 20:37 | ER Document Report ---
ED General - General Mode of Arrival: Ambulatory Information source: Patient TRAVEL OUTSIDE OF THE [place]. IN LAST 30 DAYS: No <QUINTEN COON - Last Filed: 06/24/18 22:32> <NATY CONN - Last Filed: 06/25/18 03:20> - General Chief Complaint: Chest Pain Stated Complaint: CHEST PAIN Time Seen by Provider: 06/24/18 20:24 Notes: Patient is a 72 year old female with COPD, CAD, HTN and CHF with a history of pneumonia presents to the emergency department complaining of right sided chest pain, right sided abdominal pain, left sided back pain, and a cough. Patient has been seen in this emergency department frequently for similar symptoms. Patient states she also has shortness of breath although this is baseline for her. Patient denies any fevers or trouble breathing. (QUINTEN COON) - Related Data Allergies/Adverse Reactions: ibuprofen [From Motrin] Allergy (Intermediate, Verified 06/11/18 11:29) RASH/UTICARTIA Past Medical History - General Information source: Patient - Social History Smoking Status: Current Every Day Smoker Cigarette use (# per day): Yes Chew tobacco use (# tins/day): No Smoking Education Provided: No Family History: Hypertension - Past Medical History Cardiac Medical History: Reports: Hx Congestive Heart Failure, Hx Coronary Artery Disease, Hx DVT, Hx Hypertension Pulmonary Medical History: Reports: Hx Asthma, Hx COPD Endocrine Medical History: Reports: Hx Diabetes Mellitus Type 2 Renal/ Medical History: Reports: Hx Renal Insufficiency GI Medical History: Reports: Hx Diverticulitis, Hx Gastroesophageal Reflux Disease Musculoskeletal Medical History: Reports Hx Arthritis Traumatic Medical History: Reports: Hx Fractures - several broken ribs Past Surgical History: Reports: Hx Appendectomy, Hx Cholecystectomy, Hx Herniorrhaphy, Hx Hysterectomy, Hx Orthopedic Surgery - rotator cuff - Immunizations Immunizations up to date: Yes Hx Diphtheria, Pertussis, Tetanus Vaccination: No Hx Pneumococcal Vaccination: 08/30/14 <QUINTEN COON - Last Filed: 06/24/18 22:32> Review of Systems - Review of Systems Constitutional: No symptoms reported. denies: Fever EENT: No symptoms reported Cardiovascular: See HPI, Chest pain Respiratory: Cough, Short of breath - chronic Gastrointestinal: See HPI, Abdominal pain Genitourinary: No symptoms reported Female Genitourinary: No symptoms reported Musculoskeletal: See HPI, Back pain Skin: No symptoms reported Hematologic/Lymphatic: No symptoms reported Neurological/Psychological: No symptoms reported -: Yes All other systems reviewed and negative <QUINTEN COON - Last Filed: 06/24/18 22:32> Physical Exam - Vital signs Interpretation: Normal - General General appearance: Appears well, Alert - HEENT Head: Normocephalic, Atraumatic Eyes: Normal Pupils: PERRL - Respiratory Respiratory status: No respiratory distress Chest status: Tender - Right-sided reproducible chest wall pain. No rashes Breath sounds: Normal Chest palpation: Normal - Cardiovascular Rhythm: Regular Heart sounds: Normal auscultation Murmur: No - Abdominal Inspection: Normal Distension: No distension Bowel sounds: Normal Tenderness: Nontender Organomegaly: No organomegaly - Genitourinary External exam: Other - Erythema consistent with candidal infection - Back Back: Normal, Nontender - Extremities General upper extremity: Normal inspection, Nontender, Normal color, Normal ROM , Normal temperature General lower extremity: Normal inspection, Nontender, Normal color, Normal ROM , Normal temperature, Normal weight bearing. No: Mateus's sign - Neurological Neuro grossly intact: Yes Cognition: Normal Orientation: AAOx4 [place] Coma Scale Eye Opening: Spontaneous [place] Coma Scale Verbal: Oriented [place] Coma Scale Motor: Obeys Commands [place] Coma Scale Total: 15 Speech: Normal Motor strength normal: LUE, RUE, LLE, RLE Sensory: Normal - Psychological Associated symptoms: Normal affect, Normal mood - Skin Skin Temperature: Warm Skin Moisture: Dry Skin Color: Normal <NATY CONN - Last Filed: 06/25/18 03:20> - Vital signs Vitals: Temp Pulse Resp BP Pulse Ox 98.3 F 70 24 H 166/80 H 86 L 06/24/18 20:13 06/24/18 20:13 06/24/18 20:13 06/24/18 20:13 06/24/18 20:13 Course - Laboratory Result Diagrams: 06/24/18 20:42 06/24/18 20:42 <QUINTEN COON - Last Filed: 06/24/18 22:32> - Laboratory Result Diagrams: 06/24/18 20:42 06/24/18 20:42 - Diagnostic Test Radiology reviewed: Reports reviewed <NATY CONN - Last Filed: 06/25/18 03:20> - Re-evaluation Re-evalutation: 06/25/18 03:19 Patient is a pleasant 72-year-old female who comes in complaining of right- sided chest pain that is worse with movement. Patient has been seen for this in the past. No acute findings on blood work including troponin negative 2. Chest x-ray is benign. CTA was done to make sure that the patient did not have any pulmonary embolus or underlying pneumonia. None was seen. Patient does have a right lung nodule. EKG showing an old left bundle branch block. I have discussed with the patient and her family member if she has mentioned these symptoms to her primary care doctor as it seems that she has inadequate pain control. Patient denies doing so. She will be discharged home with Lidoderm patches. Given her history of chronic respiratory insufficiency due to COPD, I do not think it would be a good idea to send this patient home on a medication and will make her drowsy and suppress her respiratory drive. Explained this at length to her. She is to follow-up with her doctor on Wednesday. Understands agrees with plan. Stable for discharge. Of note, she is on her home O2 requirement. (NATY CONN) - Vital Signs Vital signs: Temp Pulse Resp BP Pulse Ox 98.3 F 70 22 H 144/67 H 90 L 06/24/18 20:13 06/24/18 20:13 06/25/18 02:01 06/25/18 02:01 06/25/18 02:01 - Laboratory Laboratory results interpreted by me: 06/24/18 06/24/18 20:42 20:42 WBC 11.6 H RBC 3.68 L Hgb 11.0 L Hct 33.5 L RDW 14.4 H Est GFR (Non-Af Amer) 54 L Glucose 119 H Discharge <QUINTEN COON - Last Filed: 06/24/18 22:32> <NATY CONN - Last Filed: 06/25/18 03:20> - Discharge Clinical Impression: Chest wall pain Chronic obstructive pulmonary disease Qualifiers: COPD type: unspecified COPD Qualified Code(s): J44.9 - Chronic obstructive pulmonary disease, unspecified Condition: Stable Disposition: HOME, SELF-CARE Instructions: Chest Wall Pain ([facility]) Prescriptions: Lidocaine [Lidoderm 5% (700 mg) Transdermal Patch] 1 patch TP DAILY #14 adh..patch Referrals: KYLE NIETO MD [Primary Care Provider] - Follow up in 3-5 days Scribe Attestation: 06/25/18 03:20 I personally performed the services described in the documentation, reviewed and edited the documentation which was dictated to the scribe in my presence, and it accurately records my words and actions. (NATY CONN) Scribe Documentation - Scribe Written by Scribe:: Jeanie Burr, 06/24/2018 22:34 acting as scribe for :: Cintia <QUINTEN COON - Last Filed: 06/24/18 22:32>
[2018-06-24 21:05] LABS: ABSOLUTE BASOPHILS # (AUTO) 0.1 10^3/uL (0.0-0.2); ABSOLUTE EOSINOPHILS # (AUTO) 0.3 10^3/uL (0.0-0.6); ABSOLUTE LYMPHOCYTES (AUTO) 2.9 10^3/uL (0.5-4.7); ABSOLUTE MONOCYTES (AUTO) 0.7 10^3/uL (0.1-1.4); ABSOLUTE NEUT (AUTO) 7.7 10^3/uL (1.7-8.2); BASOPHILS % (AUTO) 0.6 % (0-2); EOSINOPHILS % (AUTO) 2.2 % (0-6); HEMATOCRIT 33.5 % (36.0-47.0); LYMPHOCYTES % (AUTO) 25.2 % (13-45); MEAN CORPUSCULAR HEMOGLOBIN 29.8 pg (27.0-33.4); MEAN CORPUSCULAR HGB CONC 32.7 g/dL (32.0-36.0); MEAN CORPUSCULAR VOLUME 91 fl (80-97); MONOCYTES % (AUTO) 5.7 % (3-13); PLATELET COUNT 266 10^3/uL (150-450); RED BLOOD COUNT 3.68 10^6/uL (3.72-5.28); RED CELL DISTRIBUTION WIDTH 14.4 % (11.5-14.0); SEGMENTED NEUTROPHILS % (AUTO) 66.3 % (42-78); TOTAL CELLS COUNTED % (AUTO) 100 %; WHITE BLOOD COUNT 11.6 10^3/uL (4.0-10.5)
[2018-06-24 21:22] LABS: ALANINE AMINOTRANSFERASE 17 U/L (9-52); ALBUMIN 3.7 g/dL (3.5-5.0); ALKALINE PHOSPHATASE 83 U/L (38-126); ANION GAP 10 (5-19); ASPARTATE AMINO TRANSFERASE 17 U/L (14-36); BILIRUBIN,DIRECT 0.2 mg/dL (0.0-0.4); BILIRUBIN,TOTAL 0.2 mg/dL (0.2-1.3); BLOOD UREA NITROGEN 14 mg/dL (7-20); CARBON DIOXIDE 30 mmol/L (22-30); CHLORIDE 100 mmol/L (98-107); CREATINE KINASE 51 U/L (30-135); GLUCOSE 119 mg/dL (75-110); POTASSIUM 4.2 mmol/L (3.6-5.0); SODIUM 140.2 mmol/L (137-145); TOTAL PROTEIN 6.6 g/dL (6.3-8.2)
[2018-06-24 21:34] LABS: CREATINE KINASE MB 0.86 ng/mL (<4.55)
[2018-06-24 21:38] LABS: TROPONIN I < 0.012 ng/mL
[2018-06-24] MEDS ORDERED: LIDOCAINE 5% (700 MG) TRANSDERMAL ADH..PATCH TP ONE (21:39)
--- NOTE | 2018-06-24 21:42 | RADIOLOGY REPORT (SQ) ---
EXAM DESCRIPTION: CHEST SINGLE VIEW COMPLETED DATE/TIME: 06/24/2018 9:19 pm REASON FOR STUDY: CP COMPARISON: 06/11/2018 EXAM PARAMETERS: NUMBER OF VIEWS: One view. TECHNIQUE: Single frontal radiographic view of the chest acquired. RADIATION DOSE: NA LIMITATIONS: None. FINDINGS: LUNGS AND PLEURA: No acute opacities, masses or pneumothorax. No pleural effusion. MEDIASTINUM AND HILAR STRUCTURES: Stable. HEART AND VASCULAR STRUCTURES: Stable. BONES: No acute findings. HARDWARE: None in the chest. OTHER: No other significant finding. IMPRESSION: NO ACUTE RADIOGRAPHIC FINDING IN THE CHEST. TECHNICAL DOCUMENTATION: JOB ID: [id number] [place]-72 2010 [employer]- All Rights Reserved Reading location - IP/workstation name: [facility] [email or web address]
[2018-06-24] MEDS ORDERED: IPRATROPIUM/ALBUTEROL 0.5-2.5 MG/3 ML AMPUL NEB ONE (22:21)
[2018-06-25] MEDS ORDERED: FLUCONAZOLE 100 MG TABLET PO ONE (00:21)
[2018-06-25] MEDS ORDERED: CYCLOBENZAPRINE HCL 10 MG TABLET PO ONE (00:21)
[2018-06-25] MEDS ORDERED: FENTANYL CITRATE INJ/PF 100 MCG/2 ML AMPUL IV ONE (01:47)
--- NOTE | 2018-06-25 02:39 | RADIOLOGY REPORT (SQ) ---
EXAM DESCRIPTION: CT CHEST ANGIOGRAPHY WITHOUT THEN WITH IV CONTRAST COMPLETED DATE/TME: 06/25/2018 01:48 CLINICAL HISTORY: 72 years Female, CHEST PAIN Comparison: August 31, 2014, images only. CR, same day Technique: IV contrast. Coronal and sagittal reformat. 3d reconstruction. This exam was performed according to our departmental dose-optimization program, which includes automated exposure control, adjustment of the mA and/or kV according to patient size and/or use of iterative reconstruction technique.[facility]: Dose Right [facility]: CareDose [facility]: Dose Right [facility]: Teradose 4D [facility]: [employer] LIMITATIONS: None Findings: 0.6 x 0.6 cm solid well-defined pulmonary nodule of the right upper lobe, image 29 of series 3 compared with prior exam from August 2014. Chronic, moderate mediastinal lymphadenopathy, atherosclerosis, mild right hilar lymphadenopathy, small right lower lobar atelectasis or scar. No pulmonary embolus. No right ventricular strain. Inferior neck, axillae, airway, heart, vasculature, upper abdomen, and musculoskeleton appear unremarkable. Impression: 1. New 0.6 cm right upper lobar pulmonary nodule since a prior exam from 2013. Else, stable moderate mediastinal lymphadenopathy compared with prior exam from August 2014. Differential etiologies include infectious, inflammatory, and neoplastic processes. 2. No pulmonary embolus.
[2018-06-25 02:44] VITALS: BP 144/67
--- NOTE | 2018-06-25 10:41 | EKG REPORT ---
SEVERITY:- ABNORMAL ECG - SINUS RHYTHM LEFT BUNDLE BRANCH BLOCK : Confirmed by: Francisca Marin 25-Jun-2018 10:41:09
== END 2018-06-25 02:56 | disposition home or self-care (01) ==
LOC: ER 20:07
DX: R07.89 Other chest pain (principal); J44.9 Chronic obstructive pulmonary disease, unspecified; I25.10 Atherosclerotic heart disease of native coronary artery without angina pectoris; I11.0 Hypertensive heart disease with heart failure; I50.9 Heart failure, unspecified; F17.210 Nicotine dependence, cigarettes, uncomplicated; Z88.6 Allergy status to analgesic agent; Z90.49 Acquired absence of other specified parts of digestive tract; Z90.710 Acquired absence of both cervix and uterus
CPT/HCPCS: 93005; 94640; 99285; 96374; 36415; 82553; 82550; 85025; 80053; 84484; 71045; 71275; 93010; A9270 ×4; J3010; J7620

== ENCOUNTER → 2018-07-04 | Outpatient (CLI) | payer MEDICARE ==
--- NOTE | 2018-07-04 16:04 | RADIOLOGY REPORT (SQ) ---
EXAM DESCRIPTION: CT CHEST WITHOUT COMPLETED DATE/TIME: 07/04/2018 1:04 pm REASON FOR STUDY: PULMONARY INFILTRATE (R91.8) R91.8 OTHER NONSPECIFIC ABNORMAL FINDING OF LUNG FIE LD COMPARISON: 06/25/2018 TECHNIQUE: CT scan performed of the chest without intravenous contrast. Images reviewed with lung, soft tissue and bone windows. Reconstructed coronal and sagittal MPR images reviewed. All images st ored on PACS. All CT scanners at this facility use dose modulation, iterative reconstruction, and/or weight based d osing when appropriate to reduce radiation dose to as low as reasonably achievable (ALARA). [facility]: Dose Right [facility]: CareDose [facility]: Dose Right [facility]: Teradose 4D [facility]: [employer] RADIATION DOSE: CT Rad equipment meets quality standard of care and radiation dose reduction techniq ues were employed. CTDIvol: 14.6 mGy. DLP: 553 mGy-cm. mGy. LIMITATIONS: No technical limitations. FINDINGS: LUNGS AND PLEURA: Stable 6 mm right upper lobe nodule. No evidence of pulmonary edema or pneumonia. No effusions. Stable areas of scarring in the lung bases. HILAR AND MEDIASTINAL STRUCTURES: Stable mediastinal nodes measuring up to 1.5 cm. HEART AND VASCULAR STRUCTURES: No aneurysm. No pericardial effusion. UPPER ABDOMEN: No significant findings. Limited exam. THYROID AND OTHER SOFT TISSUES: No masses. No adenopathy. BONES: No significant finding. HARDWARE: None in the chest. OTHER: No other significant findings. IMPRESSION: No significant change from 06/25/2018. TECHNICAL DOCUMENTATION: JOB ID: [id number] Quality ID # [id number]: Final reports with documentation of one or more dose reduction techniques (e.g., Au tomated exposure control, adjustment of the mA and/or kV according to patient size, use of iterative reconstruction technique) 2010 [employer]- All Rights Reserved Reading location - IP/workstation name: [email or web address]
== END ==
LOC: RAD 12:50
PROVIDERS: ATTEND Internal Medicine Critical Care Medicine
DX: R91.8 Other nonspecific abnormal finding of lung field (principal)
CPT/HCPCS: 71250

== ENCOUNTER 2018-07-08 21:59 | Observation (INO) | payer MEDICARE ==
[2018-07-08] MEDS ORDERED: IPRATROPIUM/ALBUTEROL 0.5-2.5 MG/3 ML AMPUL NEB ONE (22:40)
[2018-07-08] MEDS ORDERED: METHYLPREDNISOLONE INJ 125 MG/2 ML SDV IV ONE (22:40)
[2018-07-08] MEDS: ALBUTEROL SULFATE 0.083% NEB 2.5 MG/3 ML AMPUL NEB SCH (22:54)
[2018-07-08] MEDS ORDERED: ASPIRIN 81 MG TABLET, CHEWABLE PO ONE (23:30)
--- NOTE | 2018-07-08 23:38 | ER Document Report ---
ED Respiratory Problem - General Mode of Arrival: Ambulatory Information source: Patient TRAVEL OUTSIDE OF THE [place] IN LAST 30 DAYS: No <FOREST GIRARD - Last Filed: 07/08/18 23:50> <NATY CONN - Last Filed: 07/09/18 06:25> - General Chief Complaint: Chest Pain Stated Complaint: CHEST PAIN Time Seen by Provider: 07/08/18 23:20 Notes: Patient is a 72-year-old female that presents to the emergency today with complaints of chest pain with associated shortness of breath. Patient states that all of her symptoms began about 3 hours prior to arrival. Patient states that she tried breathing treatments at home which minimally relieved her symptoms. Patient is a one half pack per day smoker. (FOREST GIRARD) - Related Data Allergies/Adverse Reactions: ibuprofen [From Motrin] Allergy (Intermediate, Verified 06/11/18 11:29) RASH/UTICARTIA Past Medical History - General Information source: Patient - Social History Smoking Status: Current Every Day Smoker Cigarette use (# per day): Yes - 1/2 ppd Frequency of alcohol use: None Drug Abuse: None Lives with: Family Family History: Reviewed & Not Pertinent, Hypertension - Past Medical History Cardiac Medical History: Reports: Hx Congestive Heart Failure, Hx Coronary Artery Disease, Hx DVT, Hx Hypertension Pulmonary Medical History: Reports: Hx Asthma, Hx COPD Endocrine Medical History: Reports: Hx Diabetes Mellitus Type 2 Renal/ Medical History: Reports: Hx Renal Insufficiency GI Medical History: Reports: Hx Diverticulitis, Hx Gastroesophageal Reflux Disease Musculoskeletal Medical History: Reports Hx Arthritis Traumatic Medical History: Reports: Hx Fractures - several broken ribs Past Surgical History: Reports: Hx Appendectomy, Hx Cholecystectomy, Hx Herniorrhaphy, Hx Hysterectomy, Hx Orthopedic Surgery - rotator cuff - Immunizations Immunizations up to date: Yes Hx Diphtheria, Pertussis, Tetanus Vaccination: No Hx Pneumococcal Vaccination: 08/30/14 <FOREST GIRARD - Last Filed: 07/08/18 23:50> Review of Systems - Review of Systems Constitutional: No symptoms reported EENT: No symptoms reported Cardiovascular: See HPI, Chest pain Respiratory: See HPI, Short of breath Gastrointestinal: No symptoms reported Genitourinary: No symptoms reported Female Genitourinary: No symptoms reported Musculoskeletal: No symptoms reported Skin: No symptoms reported Hematologic/Lymphatic: No symptoms reported Neurological/Psychological: No symptoms reported -: Yes All other systems reviewed and negative <SHAJIFOREST - Last Filed: 07/08/18 23:50> Physical Exam <FOREST GIRARD - Last Filed: 07/08/18 23:50> <NATY CONN - Last Filed: 07/09/18 06:25> - Vital signs Vitals: Temp Pulse Resp BP Pulse Ox 98.3 F 75 26 H 146/74 H 88 L 07/08/18 22:39 07/08/18 22:39 07/08/18 22:39 07/08/18 22:39 07/08/18 22:39 - Notes Notes: Physical Exam: General: Alert. HEENT: Normocephalic. Atraumatic. PERRL. Extraocular movements intact. Oropharynx clear. Neck: Supple. Non-tender. Respiratory: No respiratory distress. Fine expiratory wheezing throughout bilaterally. Anterior chest wall tenderness with palpation. Cardiovascular: Regular rate and rhythm. Abdominal: Normal Inspection. Non-tender. No distension. Normal Bowel Sounds. Back: Non-tender. No deformity or step off. Extremities: Moves all four extremities. Upper extremities: Normal inspection. Normal ROM. Lower extremities: Normal inspection. No edema. Normal ROM. Neurological: Normal cognition. AAOx4. Normal speech. Psychological: Normal affect. Normal Mood. Skin: Warm. Dry. Normal color. (FOREST GIRARD) Course - Laboratory Result Diagrams: 07/08/18 23:10 07/08/18 23:10 <LITO GIRARDON - Last Filed: 07/08/18 23:50> - Laboratory Result Diagrams: 07/08/18 23:10 07/09/18 00:35 - Diagnostic Test Radiology reviewed: Reports reviewed - EKG Interpretation by Ar EKG shows normal: Sinus rhythm <NATY CONN - Last Filed: 07/09/18 06:25> - Re-evaluation Re-evalutation: 07/09/18 02:01 Still has CP. Trop neg. Slight elevaton of BUN/Cr 07/09/18 06:24 Patient is a 72-year-old female who is well-known to the hospital service who presents with chest pain which is typical for her, shortness of breath and wheezing. Troponin is negative 2. No acute findings on EKG. Chest pain is reproducible. Despite nebulizer treatments, magnesium, and Solu-Medrol, patient continues to have difficulty breathing. She is not at her baseline respiratory status and will be kept in the hospital for observation to ensure improvement. Agreeable to this plan. Stable time of admission. (NATY CONN) - Vital Signs Vital signs: Temp Pulse Resp BP Pulse Ox 98.3 F 75 16 131/87 H 93 07/08/18 22:39 07/08/18 22:39 07/09/18 04:01 07/09/18 04:01 07/09/18 04:01 - Laboratory Laboratory results interpreted by me: 07/08/18 07/09/18 07/09/18 23:10 00:35 05:11 WBC 10.7 H Hgb 11.9 L RDW 14.3 H BUN 25 H Creatinine 1.37 H Est GFR ( Amer) 46 L Est GFR (Non-Af Amer) 38 L Glucose 180 H Urine Glucose (UA) 150 H Critical Care Note - Critical Care Note Total time excluding time spent on procedures (mins): 35 - Evaluation and management of respiratory distress, multiple re-evaluations, coordination of admission, counseling of patient family <NATY CONN - Last Filed: 07/09/18 06:25> Discharge <FOREST GIRARD - Last Filed: 07/08/18 23:50> - Discharge Admitting Provider: [facility] Unit Admitted: Telemetry <NATY CONN - Last Filed: 07/09/18 06:25> - Discharge Clinical Impression: COPD exacerbation, Hypoxia ARF (acute renal failure) Qualifiers: Acute renal failure type: unspecified Qualified Code(s): N17.9 - Acute kidney failure, unspecified Condition: Stable Disposition: ADMITTED OBSERVATION Scribe Attestation: 07/09/18 06:24 I personally performed the services described in the documentation, reviewed and edited the documentation which was dictated to the scribe in my presence, and it accurately records my words and actions. (NATY CONN) Scribe Documentation - Scribe Written by Ziyade:: Jeanie Matute, 07/09/2018 0000 acting as scribe for :: Cintia <FOREST GIRARD - Last Filed: 07/08/18 23:50>
[2018-07-08 23:44] LABS: ABSOLUTE BASOPHILS # (AUTO) 0.2 10^3/uL (0.0-0.2); ABSOLUTE EOSINOPHILS # (AUTO) 0.3 10^3/uL (0.0-0.6); ABSOLUTE LYMPHOCYTES (AUTO) 2.2 10^3/uL (0.5-4.7); ABSOLUTE MONOCYTES (AUTO) 0.7 10^3/uL (0.1-1.4); ABSOLUTE NEUT (AUTO) 7.3 10^3/uL (1.7-8.2); BASOPHILS % (AUTO) 1.9 % (0-2); EOSINOPHILS % (AUTO) 2.6 % (0-6); HEMOGLOBIN 11.9 g/dL (12.0-15.5); LYMPHOCYTES % (AUTO) 20.9 % (13-45); MEAN CORPUSCULAR HEMOGLOBIN 29.9 pg (27.0-33.4); MEAN CORPUSCULAR VOLUME 91 fl (80-97); MONOCYTES % (AUTO) 6.4 % (3-13); PLATELET COUNT 219 10^3/uL (150-450); RED BLOOD COUNT 3.98 10^6/uL (3.72-5.28); RED CELL DISTRIBUTION WIDTH 14.3 % (11.5-14.0); SEGMENTED NEUTROPHILS % (AUTO) 68.2 % (42-78); TOTAL CELLS COUNTED % (AUTO) 100 %; WHITE BLOOD COUNT 10.7 10^3/uL (4.0-10.5)
[2018-07-08 23:53] LABS: PROTHROMBIN TIME 12.6 SEC (11.4-15.4)
[2018-07-09 00:04] LABS: CREATINE KINASE MB 0.58 ng/mL (<4.55)
[2018-07-09] MEDS: ALBUTEROL SULFATE 0.083% NEB 2.5 MG/3 ML AMPUL NEB SCH (00:15)
[2018-07-09] MEDS: MAGNESIUM SULFATE/D5W 1 GM/100 ML RTUPB IV SCH (00:16)
--- NOTE | 2018-07-09 00:29 | RADIOLOGY REPORT (SQ) ---
EXAM DESCRIPTION: XR CHEST 1 VIEW COMPLETED DATE/TME: 07/08/2018 22:40 CLINICAL HISTORY: 72 years Female, breathing difficulty COMPARISON: 8.3.18 NUMBER OF VIEWS/TECHNIQUE: 1/AP FINDINGS: Increased emphysematous lung volume, clear parenchyma, normal cardiac silhouette, and small chronic deformity of a posterior left mid thoracic rib and anterolateral right midthoracic ribs. IMPRESSION: No acute cardiopulmonary findings.
[2018-07-09 00:30] LABS: TROPONIN I < 0.012 ng/mL
[2018-07-09] MEDS ORDERED: FENTANYL CITRATE INJ/PF 100 MCG/2 ML AMPUL IV ONE (00:34)
[2018-07-09 01:08] LABS: ALANINE AMINOTRANSFERASE 17 U/L (9-52); ALBUMIN 3.8 g/dL (3.5-5.0); ALKALINE PHOSPHATASE 100 U/L (38-126); ANION GAP 12 (5-19); ASPARTATE AMINO TRANSFERASE 17 U/L (14-36); BILIRUBIN,DIRECT 0.3 mg/dL (0.0-0.4); BILIRUBIN,TOTAL 0.4 mg/dL (0.2-1.3); BLOOD UREA NITROGEN 25 mg/dL (7-20); CALCIUM 9.2 mg/dL (8.4-10.2); CARBON DIOXIDE 28 mmol/L (22-30); CHLORIDE 102 mmol/L (98-107); CREATINE KINASE 42 U/L (30-135); GLUCOSE 180 mg/dL (75-110); POTASSIUM 3.9 mmol/L (3.6-5.0); SODIUM 141.6 mmol/L (137-145); TOTAL PROTEIN 6.7 g/dL (6.3-8.2)
[2018-07-09] MEDS ORDERED: NORMAL SALINE 250 ML IV ONE (01:20)
[2018-07-09] MEDS ORDERED: IPRATROPIUM/ALBUTEROL 0.5-2.5 MG/3 ML AMPUL NEB ONE (01:46)
[2018-07-09] MEDS ORDERED: TRAMADOL HCL 50 MG TABLET PO ONE (02:01)
[2018-07-09 05:38] LABS: APPEARANCE,URINE CLEAR; BILIRUBIN,URINE NEGATIVE (NEGATIVE); COLOR,URINE YELLOW; GLUCOSE, URINE 150 mg/dL (NEGATIVE); KETONES,URINE NEGATIVE (NEGATIVE); LEUKOCYTE ESTERASE,URINE NEGATIVE (NEGATIVE); NITRITE,URINE NEGATIVE (NEGATIVE); PROTEIN,URINE NEGATIVE (NEGATIVE); URINE SPECIFIC GRAVITY 1.019; UROBILINOGEN,URINE NEGATIVE mg/dL (<2.0)
--- NOTE | 2018-07-09 07:12 | EKG REPORT ---
SEVERITY:- ABNORMAL ECG - SINUS RHYTHM LEFT BUNDLE BRANCH BLOCK : Confirmed by: Paras Alvarado MD 09-Jul-2018 07:11:44
[2018-07-09] MEDS ORDERED: DOCUSATE SODIUM 100 MG CAPSULE PO PRN (08:52)
[2018-07-09] MEDS ORDERED: IPRATROPIUM/ALBUTEROL 0.5-2.5 MG/3 ML AMPUL NEB PRN (08:52)
[2018-07-09] MEDS ORDERED: NORMAL SALINE 1000 ML 1,000 ML IV PRN (08:52)
[2018-07-09] MEDS ORDERED: ACETAMINOPHEN 325 MG TABLET PO PRN (08:52)
--- NOTE | 2018-07-09 09:11 | PDOC H&P ---
History of Present Illness Admission Date/PCP: 07/09/18 06:35 KYLE NIETO MD Patient complains of: chest pain History of Present Illness: GAVI PEDRO is a 72 year old female with a past medical history of diabetes, hypertension, and COPD, who presented to the ED complaining of left-sided chest pain radiating down to the left arm. Patient states pain as 7 out of 10, nothing makes it better or worse, but does admit that with movement she does feel some pain. Denies fever/chills, shortness of breath except for when coughing, abdominal pain, nausea/vomiting, dizziness, lightheadedness or headaches. Patient states she has a history of COPD and does use her inhalers and medications at home. Patient denies any new medications, recent trips or change in diet/lifestyle. States that she was sitting on a chair when she had this pain 1 hour prior to arriving to the ED. Past Medical History Cardiac Medical History: Reports: Congestive Heart Failure, Coronary Artery Disease, DVT, Hypertension Denies: Myocardial Infarction, Heart Murmur Pulmonary Medical History: Reports: Asthma, Chronic Obstructive Pulmonary Disease (COPD) Denies: Respiratory Failure, Sleep Apnea, Tuberculosis Neurological Medical History: Denies: Seizures Endocrine Medical History: Reports: Diabetes Mellitus Type 2 GI Medical History: Reports: Diverticulitis, Gastroesophageal Reflux Disease Denies: Hepatitis, Hiatal Hernia Musculoskeltal Medical History: Reports: Arthritis Psychiatric Medical History: Denies: Depression Hematology: Reports: Anemia - TAKE IRON SOMETIMES Denies: Hemophilia, Sickle Cell Disease Past Surgical History Past Surgical History: Reports: Appendectomy, Cholecystectomy, Herniorrhaphy, Hysterectomy, Orthopedic Surgery - rotator cuff Denies: Amputation, Mastectomy, Pacemaker Social History Lives with: Family Smoking Status: Current Every Day Smoker Frequency of Alcohol Use: None Hx Recreational Drug Use: No Drugs: None Hx Prescription Drug Abuse: No - Advance Directive Resuscitation Status: Full Code Family History Family History: Reviewed & Not Pertinent, Hypertension Parental Family History Reviewed: Yes Children Family History Reviewed: Unknown Sibling(s) Family History Reviewed.: Unknown Medication/Allergy Home Medications: Carvedilol [Coreg 3.125 mg Tablet] 3.125 mg PO Q12 05/06/18 Furosemide [Lasix 20 mg Tablet] 20 mg PO DAILY 05/06/18 Gabapentin [Neurontin 400 mg Capsule] 400 mg PO Q12 05/06/18 Metformin HCl [Glucophage 500 mg Tablet] 500 mg PO BID 05/06/18 Omeprazole 40 mg PO DAILY 05/06/18 Sucralfate [Carafate 1 gm Tablet] 1 gm PO QID 05/06/18 Budesonide/Formoterol Fumarate [Symbicort 160-4.5 Mcg Inhaler] 10.2 gm IH BID 30 Days #1 hfa.aer.ad 05/10/18 Doxycycline Monohydrate 100 mg PO BID 3 Days #6 tablet 05/10/18 Ipratropium/Albuterol Sulfate [Duoneb 3 ml Ampul] 3 ml NEB [id number] 5 Days #30 vial.neb 05/10/18 Lactobacillus Acidophilus [Bacid 250 mg Tablet] 500 mg PO BID 5 Days #10 tab Nicotine [Nicoderm 14 mg/24 Hr Transdermal Patch] 1 each TD DAILY@1500 14 Days # 14 patch.td24 05/10/18 Prednisone 10 mg PO DAILY 10 Days #18 tablet 05/10/18 Ciprofloxacin HCl [Cipro 500 mg Tablet] 500 mg PO BID #20 tablet 06/10/18 Metronidazole [Flagyl 500 mg Tablet] 500 mg PO Q8 #30 tablet 06/10/18 Metoclopramide HCl [Reglan 10 mg Tablet] 1 - 2 tab PO ASDIR PRN #25 tablet 06/11 Miconazole Nitrate [Monistat 3] 25 gm VG DAILY PRN #1 cream.appl 06/11/18 Lidocaine [Lidoderm 5% (700 mg) Transdermal Patch] 1 patch TP DAILY #14 adh..patch 06/25/18 Allergies/Adverse Reactions: ibuprofen [From Motrin] Allergy (Intermediate, Verified 06/11/18 11:29) RASH/UTICARTIA Review of Systems All systems: reviewed and no additional remarkable complaints except as stated Constitutional: ABSENT: chills, fever(s) Eyes: ABSENT: visual disturbances Ears: ABSENT: hearing changes Cardiovascular: PRESENT: chest pain. ABSENT: edema, orthropnea, palpitations Gastrointestinal: ABSENT: abdominal pain, nausea, vomiting Musculoskeletal: ABSENT: joint swelling, muscle weakness Neurological: ABSENT: abnormal speech, focal weakness, syncope Physical Exam Vital Signs: Temp Pulse Resp BP Pulse Ox 97.6 F 94 20 152/93 H 93 07/09/18 07:54 07/09/18 08:00 07/09/18 07:54 07/09/18 07:54 07/09/18 07:54 Intake & Output 07/08/18 07/09/18 07/10/18 06:59 06:59 06:59 Weight 184 lb 15.485 oz General appearance: PRESENT: no acute distress, obese Head exam: PRESENT: atraumatic, normocephalic Eye exam: PRESENT: EOMI, PERRLA. ABSENT: scleral icterus Ear exam: PRESENT: normal external ear exam Mouth exam: PRESENT: neck supple, tongue midline Neck exam: ABSENT: tracheal deviation Respiratory exam: PRESENT: decreased breath sounds - Decreased breath sounds at the bases with expiratory wheezing, symmetrical Cardiovascular exam: PRESENT: RRR, +S1, +S2, other - chest wall - left sided and epigastric region TTP Pulses: PRESENT: +1 pedal pulses bilateral GI/Abdominal exam: PRESENT: normal bowel sounds, soft. ABSENT: tenderness Extremities exam: ABSENT: pedal edema, tenderness, +1 edema, +2 edema Neurological exam: PRESENT: alert, awake, oriented to person, oriented to place , oriented to time, oriented to situation, CN II-XII grossly intact Skin exam: PRESENT: dry, warm Results Impressions: Chest X-Ray 07/08/18 22:40 IMPRESSION: No acute cardiopulmonary findings. Assessment & Plan - Diagnosis (1) Chest pain Qualifiers: Chest pain type: unspecified Qualified Code(s): R07.9 - Chest pain, unspecified Is this a current diagnosis for this admission?: Yes Plan: Less likely cardiac in origin. She did have tender to palpation of her chest on exam. Troponins 2 negative. No EKG changes noted. Could be also due to her COPD but she is not requiring more than her baseline is 3 L of oxygen at this time. Looking back at her chart she has been here multiple times for shortness of breath and chest pain. She has been worked up for chest pain in the past but acute findings for cardiac origin. Her EKG today did show LBBB which she has had in the past. In the past her chest pain has been related to bronchitis, pneumonia or COPD exacerbation. She is holding a conversation with me without any dyspnea or chest pain. During our interview she asked me if he can eat and states that her pain is better now. Will check TSH and repeat blood work with EKG. I think he will be here for one midnight and can be discharged in the morning if he remains stable with no acute symptoms. Monitor on telemetry for now. (2) COPD (chronic obstructive pulmonary disease) Qualifiers: Chronic bronchitis type: unspecified Is this a current diagnosis for this admission?: Yes Plan: Seems to be at baseline at 3 L of oxygen. We will continue all her home medications. (3) ANASTASIA (acute kidney injury) Is this a current diagnosis for this admission?: Yes Plan: Creatinine is slightly elevated at 1.3-likely from prerenal causes. We will give her some IV hydration's today and hopefully we will trend down tomorrow and we can discharge her. (4) Congestive heart failure Qualifiers: Heart failure type: unspecified Heart failure chronicity: chronic Qualified Code(s): I50.9 - Heart failure, unspecified Plan: She tells me that she has a history of CHF although she is not on any medication she tells me. I look back in her chart and in February of this year she had an echo done which showed normal EF. I am not sure if she has diastolic dysfunction but at this time we will monitor her for now. - Time Time Spent: 50 to 70 Minutes - Plan Summary Plan Summary: Placed in observation for 1 midnight, hopefully we can discharge her home tomorrow
[2018-07-09] MEDS: FAMOTIDINE 20 MG TABLET PO SCH ×2 (09:47→21:26)
[2018-07-09] MEDS ORDERED: HYDROCODONE/ACETAMINOPHEN 5-325 MG TABLET PO PRN (11:40)
[2018-07-09] MEDS ORDERED: ALBUTEROL SULFATE HFA (90 MCG/PUFF) 200 PUFF/8.5 GM MDI IH PRN (11:40)
[2018-07-09] MEDS: LISINOPRIL 5 MG TABLET PO SCH (12:31)
[2018-07-09] MEDS: GABAPENTIN 400 MG CAPSULE PO SCH ×2 (12:31→21:26)
[2018-07-09] MEDS: SUCRALFATE 1 GM TABLET PO SCH ×3 (12:34→21:26)
[2018-07-09] MEDS: LANSOPRAZOLE 30 MG TAB.RAP.DR PO SCH (12:34)
[2018-07-09] MEDS: FLUTICASONE/SALMETEROL DISKUS 250-50 MCG/DOSE IH SCH ×2 (14:32→21:26)
[2018-07-09] MEDS: TIOTROPIUM BROMIDE DPI 5 CAP/KIT (18 MCG/CAP) IH SCH (14:32)
[2018-07-09] MEDS: HEPARIN SOD (PORCINE) 5,000 UNIT/ML 1 ML SYRINGE SUBCUT SCH ×2 (14:48→21:26)
[2018-07-10] MEDS ORDERED: KETOROLAC TROMETHAMINE INJ/PF 30 MG/1 ML SDV INJ ONE (02:00)
[2018-07-10] MEDS: HEPARIN SOD (PORCINE) 5,000 UNIT/ML 1 ML SYRINGE SUBCUT SCH ×2 (05:09→14:31)
[2018-07-10 05:31] LABS: HEMATOCRIT 34.3 % (36.0-47.0); HEMOGLOBIN 11.2 g/dL (12.0-15.5); MEAN CORPUSCULAR HEMOGLOBIN 29.7 pg (27.0-33.4); MEAN CORPUSCULAR HGB CONC 32.7 g/dL (32.0-36.0); MEAN CORPUSCULAR VOLUME 91 fl (80-97); PLATELET COUNT 173 10^3/uL (150-450); RED BLOOD COUNT 3.78 10^6/uL (3.72-5.28); RED CELL DISTRIBUTION WIDTH 14.4 % (11.5-14.0); WHITE BLOOD COUNT 13.5 10^3/uL (4.0-10.5)
[2018-07-10 05:51] LABS: ANION GAP 11 (5-19); BLOOD UREA NITROGEN 30 mg/dL (7-20); CALCIUM 9.5 mg/dL (8.4-10.2); CARBON DIOXIDE 28 mmol/L (22-30); CHLORIDE 101 mmol/L (98-107); GLUCOSE 168 mg/dL (75-110); POTASSIUM 4.2 mmol/L (3.6-5.0); SODIUM 140.4 mmol/L (137-145)
[2018-07-10 06:03] LABS: ABSOLUTE LYMPHOCYTES# (MANUAL) 2.6 10^3/uL (0.5-4.7); ABSOLUTE MONOCYTES # (MANUAL) 0.3 10^3/uL (0.1-1.4); ABSOLUTE NEUTROPHILS# (MANUAL) 10.7 10^3/uL (1.7-8.2); BASOPHILS % (MANUAL) 0 % (0-2); EOSINOPHILS % (MANUAL) 0 % (0-6); LYMPHOCYTES % (MANUAL) 19 % (13-45); MONOCYTES % (MANUAL) 2 % (3-13); SEGMENTED NEUTROPHILS % (MAN) 79 % (42-78); TOTAL CELLS COUNTED 100
[2018-07-10 06:04] LABS: ANISOCYTOSIS 1+; OVALOCYTES 1+; PLATELET COMMENT ADEQUATE; POIKILOCYTOSIS 1+; POLYCHROMASIA 1+
[2018-07-10] MEDS: LANSOPRAZOLE 30 MG TAB.RAP.DR PO SCH (06:53)
--- NOTE | 2018-07-10 07:52 | EKG REPORT ---
SEVERITY:- ABNORMAL ECG - SINUS RHYTHM LEFT BUNDLE BRANCH BLOCK : Confirmed by: Paras Alvarado MD 10-Jul-2018 07:52:07
[2018-07-10] MEDS: SUCRALFATE 1 GM TABLET PO SCH ×2 (08:24→12:25)
[2018-07-10] MEDS: FLUTICASONE/SALMETEROL DISKUS 250-50 MCG/DOSE IH SCH (09:57)
[2018-07-10] MEDS: GABAPENTIN 400 MG CAPSULE PO SCH (09:58)
[2018-07-10] MEDS: FAMOTIDINE 20 MG TABLET PO SCH (09:58)
[2018-07-10] MEDS: LISINOPRIL 5 MG TABLET PO SCH (09:58)
[2018-07-10] MEDS: TIOTROPIUM BROMIDE DPI 5 CAP/KIT (18 MCG/CAP) IH SCH (09:59)
--- NOTE | 2018-07-10 11:22 | PDOC DISCHARGE SUMMARY ---
General - Admit/Disc Date/PCP Admission Date/Primary Care Provider: 07/09/18 06:35 KYLE NIETO MD Discharge Date: 07/10/18 - Seen on rounds this morning - Discharge Diagnosis (1) Chest pain Is this a current diagnosis for this admission?: Yes (2) COPD (chronic obstructive pulmonary disease) Is this a current diagnosis for this admission?: Yes (3) ANASTASIA (acute kidney injury) Is this a current diagnosis for this admission?: Yes - Additional Information Resuscitation Status: Full Code Discharge Activity: Activity As Tolerated Prescriptions: Azithromycin 250 mg PO DAILY 5 Days #6 tablet Home Medications: Albuterol Sulfate [Proair HFA Inhalation Aerosol 8.5 gm MDI] 1 puff IH Q6HP PRN 07/09/18 Fluticasone/Salmeterol [Advair 250-50 Diskus 14 Dose/Diskus] 1 puff IH Q12 07/09 Gabapentin [Neurontin 400 mg Capsule] 400 mg PO Q12 07/09/18 Hydrocodone/Acetaminophen [Hydrocodone-Acetamin 5-325 mg] 1 tab PO Q12HP PRN Ipratropium/Albuterol Sulfate [Iprat-Albut 0.5-3(2.5) mg/3 ml] 3 ml NEB Q4HP PRN 07/09/18 Lisinopril [Prinivil] 5 mg PO DAILY 07/09/18 Metformin HCl [Glucophage 500 mg Tablet] 500 mg PO BID 07/09/18 Omeprazole 40 mg PO DAILY 07/09/18 Sucralfate [Carafate 1 gm Tablet] 1 gm PO MEALSHS 07/09/18 Tiotropium [place] [Spiriva Handihaler 5 Cap/Kit (18 Mcg/Cap)] 1 puff IH DAILY 07/09/18 Azithromycin 250 mg PO DAILY 5 Days #6 tablet 07/10/18 Docusate Sodium [Colace 100 mg Capsule] 100 mg PO BIDP PRN capsule 07/10/18 Ipratropium/Albuterol Sulfate [Duoneb 3 ml Ampul] 3 ml NEB [id number] PRN vial.neb 07/10/18 History of Present Illness History of Present Illness: GAVI PEDRO is a 72 year old female with a past medical history of diabetes, hypertension, and COPD, who presented to the ED complaining of left-sided chest pain radiating down to the left arm. Patient states pain as 7 out of 10, nothing makes it better or worse, but does admit that with movement she does feel some pain. Denies fever/chills, shortness of breath except for when coughing, abdominal pain, nausea/vomiting, dizziness, lightheadedness or headaches. Patient states she has a history of COPD and does use her inhalers and medications at home. Patient denies any new medications, recent trips or change in diet/lifestyle. States that she was sitting on a chair when she had this pain 1 hour prior to arriving to the ED. Hospital Course Hospital Course: Troponin is negative 3. EKG no acute changes. Less likely cardiac in origin. Advised to follow-up with the primary care doctor. Likely chest pain secondary to COPD versus bronchitis. Strict return precautions given and counseled patient about chest pain. She has some elevated WBC and was coughing slightly. Given her history of COPD I will start her on azithromycin for 5 days for early phase of bronchitis. Advised her to continue all her home medications of COPD. She requested discharge and was happy to go home. Physical Exam Vital Signs: Temp Pulse Resp BP Pulse Ox 97.5 F 61 16 144/80 H 97 07/10/18 07:20 07/10/18 09:36 07/10/18 09:36 07/10/18 07:20 07/10/18 09:36 Intake & Output 07/09/18 07/10/18 07/11/18 06:59 06:59 06:59 Intake Total 2950 Balance 2950 Weight 190 lb 14.725 oz General appearance: PRESENT: no acute distress, obese, well-developed Head exam: PRESENT: atraumatic, normocephalic Eye exam: PRESENT: EOMI, PERRLA. ABSENT: scleral icterus Ear exam: PRESENT: normal external ear exam Mouth exam: PRESENT: neck supple, tongue midline Neck exam: ABSENT: tracheal deviation Respiratory exam: PRESENT: decreased breath sounds - Bilaterally mostly at the lower lung [place] with occasional expiratory wheezing-improved since yesterday, symmetrical Cardiovascular exam: PRESENT: +S1, +S2 Pulses: PRESENT: +2 pedal pulses bilateral GI/Abdominal exam: PRESENT: normal bowel sounds, soft. ABSENT: tenderness Extremities exam: ABSENT: joint swelling, pedal edema Neurological exam: PRESENT: alert, awake, oriented to person, oriented to place , oriented to time, CN II-XII grossly intact Skin exam: PRESENT: dry, warm Results Laboratory Results: 07/10/18 05:00 07/10/18 05:00 07/10/18 07/10/18 07/10/18 05:00 05:00 05:00 WBC 13.5 H RBC 3.78 Hgb 11.2 L Hct 34.3 L MCV 91 MCH 29.7 MCHC 32.7 RDW 14.4 H Plt Count 173 Seg Neutrophils % Not Reportable Lymphocytes % Not Reportable Monocytes % Not Reportable Eosinophils % Not Reportable Basophils % Not Reportable Absolute Neutrophils Not Reportable Absolute Lymphocytes Not Reportable Absolute Monocytes Not Reportable Absolute Eosinophils Not Reportable Absolute Basophils Not Reportable Sodium 140.4 Potassium 4.2 Chloride 101 Carbon Dioxide 28 Anion Gap 11 BUN 30 H Creatinine 1.13 Est GFR ( Amer) 57 L Est GFR (Non-Af Amer) 47 L Glucose 168 H Calcium 9.5 Magnesium 2.0 TSH 0.61 07/09/18 07/09/18 09:49 15:40 Troponin I < 0.012 < 0.012 Impressions: Chest X-Ray 07/08/18 22:40 IMPRESSION: No acute cardiopulmonary findings. Qualifiers - * PATIENT BEING DISCHARGED WITH ANY OF THE FOLLOWING DIAGNOSIS: No VTE patient discharged on overlapping Therapy?: No Plan Time Spent: Less than 30 Minutes
[2018-07-10 15:07] VITALS: BP 139/62
== END 2018-07-10 15:00 | disposition home or self-care (01) ==
LOC: ER 21:59 → EH 07-09 06:35 → 5 07-09 07:54
PROVIDERS: ADMIT Internal Medicine; ATTEND Internal Medicine
DX: R07.89 Other chest pain (principal); J42 Unspecified chronic bronchitis; N17.9 Acute kidney failure, unspecified; F17.210 Nicotine dependence, cigarettes, uncomplicated; E11.9 Type 2 diabetes mellitus without complications; I11.0 Hypertensive heart disease with heart failure; I25.10 Atherosclerotic heart disease of native coronary artery without angina pectoris; I50.9 Heart failure, unspecified; I44.7 Left bundle-branch block, unspecified; R09.02 Hypoxemia; Z86.718 Personal history of other venous thrombosis and embolism; Z79.899 Other long term (current) drug therapy; Z90.49 Acquired absence of other specified parts of digestive tract; Z87.81 Personal history of (healed) traumatic fracture; Z82.49 Family history of ischemic heart disease and other diseases of the circulatory system; Z79.84 Long term (current) use of oral hypoglycemic drugs
CPT/HCPCS: 93005 ×2; 94640 ×2; 99291; 96374; 96375; 36415 ×3; 82553; 82550; 83735; 84443; 85025 ×2; 85610; 80048; 80053; 81001; 84484 ×2; 83036; 83880; 71045; 93010 ×2; G0378 ×2; A9270 ×17; J3010; J3490 ×2; J2930; J1885; J3475; J7030; J7050; J7620

== ENCOUNTER 2018-08-25 19:47 | Inpatient (IN) | payer MEDICARE ==
[2018-08-25] MEDS ORDERED: ACETAMINOPHEN 325 MG TABLET PO ONE ×2 (20:08→20:14)
[2018-08-25] MEDS ORDERED: IPRATROPIUM/ALBUTEROL 0.5-2.5 MG/3 ML AMPUL NEB ONE (20:09)
[2018-08-25] MEDS ORDERED: METHYLPREDNISOLONE INJ 125 MG/2 ML SDV IV ONE (20:09)
--- NOTE | 2018-08-25 20:30 | ER Document Report ---
ED Respiratory Problem - General Stated Complaint: SHORTNESS OF BREATH Time Seen by Provider: 08/25/18 19:52 Notes: Patient is a 72-year-old female that comes to the emergency department for chief complaint of difficulty breathing, she also states that she has developed chills and sweats earlier today. Worsening difficulty breathing with coughing for the past 3 days. She denies chest pain, passing out, nausea or vomiting, abdominal pain. Patient comes by EMS, reportedly declined any treatments in route other than oxygen, she is on 3 L nasal cannula at home for COPD at all times. She states she had her influenza shot this morning. She states that she believes she has been admitted to the hospital recently within the past 2 months. She comes from home. Remaining medical history includes diabetes, hypertension. TRAVEL OUTSIDE OF THE [place] IN LAST 30 DAYS: No - Related Data Allergies/Adverse Reactions: ibuprofen [From Motrin] Allergy (Intermediate, Verified 06/11/18 11:29) RASH/UTICARTIA Past Medical History - General Information source: Patient - Social History Smoking Status: Former Smoker Frequency of alcohol use: None Drug Abuse: None Lives with: Family Family History: Reviewed & Not Pertinent, Hypertension - Past Medical History Cardiac Medical History: Reports: Hx Congestive Heart Failure, Hx Coronary Artery Disease, Hx DVT, Hx Hypertension Denies: Hx Heart Attack, Hx Heart Murmur Pulmonary Medical History: Reports: Hx Asthma, Hx COPD Denies: Hx Respiratory Failure, Hx Sleep Apnea, Hx Tuberculosis Neurological Medical History: Denies: Hx Cerebrovascular Accident, Hx Seizures Endocrine Medical History: Reports: Hx Diabetes Mellitus Type 2 Renal/ Medical History: Reports: Hx Renal Insufficiency. Denies: Hx Peritoneal Dialysis GI Medical History: Reports: Hx Diverticulitis, Hx Gastroesophageal Reflux Disease. Denies: Hx Hepatitis, Hx Hiatal Hernia, Hx Pancreatitis, Hx Ulcer - ? Musculoskeletal Medical History: Reports Hx Arthritis Psychiatric Medical History: Denies: Hx Depression Traumatic Medical History: Reports: Hx Fractures - several broken ribs Infectious Medical History: Denies: Hx Hepatitis Past Surgical History: Reports: Hx Appendectomy, Hx Cholecystectomy, Hx Herniorrhaphy, Hx Hysterectomy, Hx Orthopedic Surgery - rotator cuff. Denies: Hx Mastectomy, Hx Open Heart Surgery, Hx Pacemaker - Immunizations Immunizations up to date: Yes Hx Diphtheria, Pertussis, Tetanus Vaccination: No Hx Pneumococcal Vaccination: 08/30/14 Review of Systems - Review of Systems Constitutional: See HPI EENT: No symptoms reported Cardiovascular: No symptoms reported Respiratory: See HPI Gastrointestinal: No symptoms reported Genitourinary: No symptoms reported Female Genitourinary: No symptoms reported Musculoskeletal: No symptoms reported Skin: No symptoms reported Hematologic/Lymphatic: No symptoms reported Neurological/Psychological: No symptoms reported Physical Exam - Vital signs Vitals: Resp Pulse Ox 23 H 92 08/25/18 19:57 08/25/18 19:57 - Notes Notes: GENERAL: Patient appears to be in some distress, has tachypnea HEAD: Normocephalic, atraumatic. EYES: Pupils equal, round, and reactive to light. Extraocular movements intact. ENT: Oral mucosa moist, tongue midline. NECK: Full range of motion. Supple. Trachea midline. LUNGS: Decreased breath sounds throughout, mild expiratory wheezes, some scattered rhonchi and rales. Labored breathing with moderate respiratory distress. HEART: Regular rate and rhythm. No murmur ABDOMEN: Soft, non-tender. Non-distended. Bowel sounds present in all 4 quadrants. EXTREMITIES: Moves all 4 extremities spontaneously. No edema, normal radial and dorsalis pedis pulses bilaterally. No cyanosis. BACK: no cervical, thoracic, lumbar midline tenderness. No saddle anesthesia, normal distal neurovascular exam. NEUROLOGICAL: Alert and oriented x3. Normal speech. [cranial nerves II through XII grossly intact]. SKIN: Warm, dry, normal turgor. No rashes or lesions noted. Course - Re-evaluation Re-evalutation: Nurse reports to me initial temperature of 101.5 08/25/18 20:15 On my initial evaluation patient is tachypneic in the 30s, hypoxic at 88% on 3 L , in moderate respiratory distress. She has decreased breath sounds with a few scant wheezes, she also has rales and rhonchi throughout. She is febrile. Giving Tylenol, starting immediately on BiPAP, giving treatments, septic workup initiated, will closely reevaluate. 08/25/18 20:30 Patient is now on BiPAP, oxygen is 97%, respiratory rate less than 20, respiratory distress has resolved. Patient much improved, talkative. We will continue to monitor. 08/25/18 21:30 Cefepime has been initiated for suspected sepsis with pneumonia but no shock. Patient remains normotensive on reevaluation at this time. She remains well- appearing on reevaluation. Leukocytosis at 15,000 with elevation of neutrophils and 1 band, lactic acid is 3.3, chest x-ray results still pending. Because of patient's reported recent hospital admission she will be treated for hospital-acquired pneumonia with cefepime and vancomycin. Discussed with family at bedside. Discussed with patient. Will discuss with hospitalist for admission for respiratory distress, hypoxia, pneumonia, fever, sepsis. - Vital Signs Vital signs: Temp Pulse Resp BP Pulse Ox 97.4 F 84 28 H 119/66 90 L 08/26/18 03:29 08/26/18 03:29 08/26/18 03:29 08/26/18 03:29 08/26/18 03:29 - Laboratory Result Diagrams: 08/25/18 20:21 08/25/18 20:21 Laboratory results interpreted by me: 08/25/18 08/25/18 08/25/18 20:21 20:21 20:21 WBC 15.4 H RDW 14.4 H Seg Neuts % (Manual) 96 H Band Neutrophils % 1 L Lymphocytes % (Manual) 2 L Monocytes % (Manual) 1 L Abs Neuts (Manual) 14.9 H Abs Lymphs (Manual) 0.3 L BUN 21 H Est GFR (Non-Af Amer) 51 L Glucose 169 H Lactic Acid 3.3 H Critical Care Note - Critical Care Note Total time excluding time spent on procedures (mins): 35 - Respiratory distress , sepsis Comments: Please allow 35 minutes of critical care time for evaluation and management patient with acute respiratory distress, sepsis, interventions requiring multiple re-evaluations, BiPAP therapy, antibiotics, consultation and admission to the hospital. Discharge - Discharge Clinical Impression: Respiratory distress, Cough, Lactic acidosis, Hypoxia Fever Qualifiers: Fever type: unspecified Qualified Code(s): R50.9 - Fever, unspecified Leukocytosis Qualifiers: Leukocytosis type: unspecified Qualified Code(s): D72.829 - Elevated white blood cell count, unspecified Condition: Fair Disposition: ADMITTED INPATIENT Admitting Provider: Hospitalist Unit Admitted: [facility]
[2018-08-25 20:46] LABS: HEMATOCRIT 36.6 % (36.0-47.0); MEAN CORPUSCULAR HGB CONC 32.8 g/dL (32.0-36.0); MEAN CORPUSCULAR VOLUME 88 fl (80-97); PLATELET COUNT 183 10^3/uL (150-450); RED BLOOD COUNT 4.15 10^6/uL (3.72-5.28); RED CELL DISTRIBUTION WIDTH 14.4 % (11.5-14.0); WHITE BLOOD COUNT 15.4 10^3/uL (4.0-10.5)
[2018-08-25 21:00] LABS: ABSOLUTE LYMPHOCYTES# (MANUAL) 0.3 10^3/uL (0.5-4.7); ABSOLUTE MONOCYTES # (MANUAL) 0.2 10^3/uL (0.1-1.4); ABSOLUTE NEUTROPHILS# (MANUAL) 14.9 10^3/uL (1.7-8.2); BAND NEUTROPHILS % (MANUAL) 1 % (3-5); BASOPHILS % (MANUAL) 0 % (0-2); EOSINOPHILS % (MANUAL) 0 % (0-6); LYMPHOCYTES % (MANUAL) 2 % (13-45); MONOCYTES % (MANUAL) 1 % (3-13); SEGMENTED NEUTROPHILS % (MAN) 96 % (42-78); TOTAL CELLS COUNTED 100
[2018-08-25 21:02] LABS: ANISOCYTOSIS SLIGHT; PLATELET COMMENT ADEQUATE
[2018-08-25 21:03] LABS: ALANINE AMINOTRANSFERASE 16 U/L (9-52); ALBUMIN 3.6 g/dL (3.5-5.0); ALKALINE PHOSPHATASE 94 U/L (38-126); ANION GAP 9 (5-19); ASPARTATE AMINO TRANSFERASE 19 U/L (14-36); BILIRUBIN,DIRECT 0.3 mg/dL (0.0-0.4); BILIRUBIN,TOTAL 0.3 mg/dL (0.2-1.3); BLOOD UREA NITROGEN 21 mg/dL (7-20); CALCIUM 9.2 mg/dL (8.4-10.2); CARBON DIOXIDE 30 mmol/L (22-30); CHLORIDE 100 mmol/L (98-107); GLUCOSE 169 mg/dL (75-110); POTASSIUM 4.1 mmol/L (3.6-5.0); SODIUM 139.2 mmol/L (137-145); TOTAL PROTEIN 6.6 g/dL (6.3-8.2)
[2018-08-25] MEDS ORDERED: CEFEPIME 2 GM/D5W RTU 2 GM/50 ML RTUPB IV ONE ×2 (21:09→23:45)
[2018-08-25] MEDS ORDERED: VANCOMYCIN HCL INJ 1000 MG VIAL IV ONE (21:29)
[2018-08-25 21:30] LABS: INTERNATIONAL RATION (INR) 0.94; PROTHROMBIN TIME 13.1 SEC (11.4-15.4)
[2018-08-25 21:35] LABS: VENOUS BLOOD BASE EXCESS 1.3 mmol/L; VENOUS BLOOD HCO3 28.5 mmol/L (20-32); VENOUS BLOOD PCO2 56.8 mmHg (35-63); VENOUS BLOOD PH 7.32 (7.30-7.42)
--- NOTE | 2018-08-25 22:22 | RADIOLOGY REPORT (SQ) ---
EXAM DESCRIPTION: XR CHEST 1 VIEW COMPLETED DATE/TME: 08/25/2018 20:08 CLINICAL HISTORY: 72 years, Female, fever, hypoxia COMPARISON: None. NUMBER OF VIEWS: 1 TECHNIQUE: Single view, AP portable chest was obtained. LIMITATIONS: Patient rotation and the bilateral costophrenic angles are not included in the [id number] of the examination. FINDINGS: Unremarkable cardiac and mediastinal silhouette. Heart size is normal. Tortuous atherosclerotic thoracic aorta. Lungs are clear without focal opacity, pneumothorax or pleural effusions. Large lung volumes suggesting chronic obstructive pulmonary disease. Slight blunting of the RIGHT costophrenic angle may be secondary to overlying soft tissue and positioning, however the possibility of small pleural effusion cannot be excluded. The visualized bones reveal sequela of left-sided rib fractures otherwise within normal limits. IMPRESSION: 1. No acute cardiopulmonary abnormalities. 2. Slight blunting of the RIGHT costophrenic angle may be secondary to overlying soft tissue and positioning, however the possibility of small pleural effusion cannot be excluded. 2011 [employer]- All Rights Reserved
[2018-08-25] MEDS ORDERED: NORMAL SALINE 1000 ML 1,000 ML IV PRN (22:43)
[2018-08-25] MEDS ORDERED: DEXTROSE 40% GEL 15 GM TUBE PO PRN ×2 (22:49)
[2018-08-25] MEDS ORDERED: GLUCAGON,HUMAN RECOMB 1 MG INJ IM PRN (22:49)
[2018-08-25] MEDS ORDERED: DEXTROSE 50%-WATER 25 GM/50 ML DISP.SYRIN IV PRN ×2 (22:49)
[2018-08-25] MEDS ORDERED: DOCUSATE SODIUM 100 MG CAPSULE PO PRN (22:50)
--- NOTE | 2018-08-25 23:35 | PDOC H&P ---
History of Present Illness Admission Date/PCP: 08/25/18 22:43 KYLE NIETO MD Patient complains of: HAP History of Present Illness: GAVI PEDRO is a 72 year old female with chronic respiratory failure on 3 L oxygen at home, COPD. Patient tells me that her symptoms started about 3 days ago with shortness of breath that has been progressing over time, associated with cough with brownish sputum, chills, sweating, subjective fever. Patient has received a flu shot today and states she worsened. When EMS arrived she was saturating in the low 80s and her oxygen has been increased from 3 L to 6 L , on respiratory distress. Patient was initiated on BiPAP on her way to the hospital. In the emergency department patient tachypneic on the 30s, hypoxic at 88% on 3 L oxygen, temperature 101.3, respiratory rate 37. Chest x-ray one view negative. Currently patient on BiPAP saturating 97%. Lactic acid 3.3. VBG 7.32/56 Denies chest pain, complains of diffuse abdominal pain with 3-4 nonbloody bowel movements a day, denies dysuria, hematuria or frequency. Past Medical History Cardiac Medical History: Reports: Congestive Heart Failure, Coronary Artery Disease, DVT, Hypertension Denies: Myocardial Infarction, Heart Murmur Pulmonary Medical History: Reports: Asthma, Chronic Obstructive Pulmonary Disease (COPD) Denies: Respiratory Failure, Sleep Apnea, Tuberculosis Neurological Medical History: Denies: Seizures Endocrine Medical History: Reports: Diabetes Mellitus Type 2 GI Medical History: Reports: Diverticulitis, Gastroesophageal Reflux Disease Denies: Hepatitis, Hiatal Hernia Musculoskeltal Medical History: Reports: Arthritis Psychiatric Medical History: Denies: Depression Hematology: Reports: Anemia - TAKE IRON SOMETIMES Denies: Hemophilia, Sickle Cell Disease Past Surgical History Past Surgical History: Reports: Appendectomy, Cholecystectomy, Herniorrhaphy, Hysterectomy, Orthopedic Surgery - rotator cuff Denies: Amputation, Mastectomy, Pacemaker Social History Smoking Status: Current Every Day Smoker - Patient tells me that she smokes about 5 cigarettes/day Frequency of Alcohol Use: None Hx Recreational Drug Use: No Drugs: None Hx Prescription Drug Abuse: No Family History Family History: Reviewed & Not Pertinent, Hypertension Parental Family History Reviewed: Yes - As above Children Family History Reviewed: NA Sibling(s) Family History Reviewed.: NA Medication/Allergy Home Medications: Albuterol Sulfate [Proair HFA Inhalation Aerosol 8.5 gm MDI] 1 puff IH Q6HP PRN 07/09/18 Fluticasone/Salmeterol [Advair 250-50 Diskus 14 Dose/Diskus] 1 puff IH Q12 07/09 Gabapentin [Neurontin 400 mg Capsule] 400 mg PO Q12 07/09/18 Hydrocodone/Acetaminophen [Hydrocodone-Acetamin 5-325 mg] 1 tab PO Q12HP PRN Ipratropium/Albuterol Sulfate [Iprat-Albut 0.5-3(2.5) mg/3 ml] 3 ml NEB Q4HP PRN 07/09/18 Lisinopril [Prinivil] 5 mg PO DAILY 07/09/18 Metformin HCl [Glucophage 500 mg Tablet] 500 mg PO BID 07/09/18 Omeprazole 40 mg PO DAILY 07/09/18 Sucralfate [Carafate 1 gm Tablet] 1 gm PO MEALSHS 07/09/18 Tiotropium [place] [Spiriva Handihaler 5 Cap/Kit (18 Mcg/Cap)] 1 puff IH DAILY 07/09/18 Azithromycin 250 mg PO DAILY 5 Days #6 tablet 07/10/18 Docusate Sodium [Colace 100 mg Capsule] 100 mg PO BIDP PRN capsule 07/10/18 Ipratropium/Albuterol Sulfate [Duoneb 3 ml Ampul] 3 ml NEB RTQ6HP PRN vial.[facility] 07/10/18 Allergies/Adverse Reactions: ibuprofen [From Motrin] Allergy (Intermediate, Verified 06/11/18 11:29) RASH/UTICARTIA Review of Systems Review of Systems: As outlined in the HPI, others negative Physical Exam Vital Signs: Temp Pulse Resp BP Pulse Ox 101.9 F H 37 H 96 08/25/18 20:07 08/25/18 20:08 08/25/18 20:08 Additional comments: General appearance: Well-developed, obese, alert and cooperative, and appears to be in no acute distress. Wearing BiPAP Head: Normocephalic Eyes: PEERL, EOMI, vision is grossly intact. Ears: External auditory canal and tympanic membranes clear, hearing grossly intact. Nose: No nasal discharge. Throat: Oral cavity and pharynx normal. No inflammation, swelling, exudate or lesions. Neck: Neck supple, nontender without lymphadenopathy, masses or thyromegaly. Cardiac: Normal S1 and S2. No S3, S4 or murmurs. Rhythm is regular. There is no peripheral edema, cyanosis or pallor. Extremities are warm and well perfused. Capillary refill is less than 2 seconds. No carotid bruits. Lungs: bilateral rhonchi, minimal expiratory wheezing, bilateral diminished breath sounds. Not using accessory muscles. Abdomen: Positive bowel sounds. Soft. Nondistended, nontender. No guarding or rebound. No masses. No hepatosplenomegaly Extremities: No significant deformity or joint abnormality. No edema. Peripheral pulses intact. No varicosities. Neurological: Cranial nerves II through XII grossly intact. Strength and sensation symmetric and intact throughout. Reflexes 2+ throughout. Skin: Skin normal color, texture and turgor with no lesions or eruptions, warm and dry. Psychiatric: The mental examination revealed the patient was oriented to person , place, and time. The patient was able to demonstrate good judgment on recent , without hallucinations, abnormal affect or abnormal behaviors. Results Laboratory Results: 08/25/18 08/25/18 08/25/18 20:21 20:21 20:21 WBC 15.4 H RBC 4.15 Hgb 12.0 Hct 36.6 MCV 88 MCH 29.0 MCHC 32.8 RDW 14.4 H Plt Count 183 Total Counted 100 Seg Neuts % (Manual) 96 H Band Neutrophils % 1 L Lymphocytes % (Manual) 2 L Monocytes % (Manual) 1 L Eosinophils % (Manual) 0 Basophils % (Manual) 0 Abs Neuts (Manual) 14.9 H Abs Lymphs (Manual) 0.3 L Abs Monocytes (Manual) 0.2 Absolute Eos (Manual) 0.0 Abs Basophils (Manual) 0.0 Platelet Comment ADEQUATE Anisocytosis SLIGHT PT INR VBG pH VBG pCO2 VBG HCO3 VBG Base Excess Sodium 139.2 Potassium 4.1 Chloride 100 Carbon Dioxide 30 Anion Gap 9 BUN 21 H Creatinine 1.06 Est GFR ( Amer) > 60 Est GFR (Non-Af Amer) 51 L Glucose 169 H Lactic Acid 3.3 H Calcium 9.2 Total Bilirubin 0.3 Direct Bilirubin 0.3 AST 19 ALT 16 Alkaline Phosphatase 94 Troponin I Total Protein 6.6 Albumin 3.6 08/25/18 08/25/18 08/25/18 20:21 21:00 21:13 WBC RBC Hgb Hct MCV MCH MCHC RDW Plt Count Total Counted Seg Neuts % (Manual) Band Neutrophils % Lymphocytes % (Manual) Monocytes % (Manual) Eosinophils % (Manual) Basophils % (Manual) Abs Neuts (Manual) Abs Lymphs (Manual) Abs Monocytes (Manual) Absolute Eos (Manual) Abs Basophils (Manual) Platelet Comment Anisocytosis PT 13.1 INR 0.94 VBG pH 7.32 VBG pCO2 56.8 VBG HCO3 28.5 VBG Base Excess 1.3 Sodium Potassium Chloride Carbon Dioxide Anion Gap BUN Creatinine Est GFR ( Amer) Est GFR (Non-Af Amer) Glucose Lactic Acid Calcium Total Bilirubin Direct Bilirubin AST ALT Alkaline Phosphatase Troponin I 0.013 Total Protein Albumin Impressions: Chest X-Ray 08/25/18 20:08 IMPRESSION: 1. No acute cardiopulmonary abnormalities. 2. Slight blunting of the RIGHT costophrenic angle may be secondary to overlying soft tissue and positioning, however the possibility of small pleural effusion cannot be excluded. 2010 [employer]- All Rights Reserved Assessment & Plan - Diagnosis (1) Sepsis Qualifiers: Sepsis type: sepsis due to unspecified organism Qualified Code(s): A41.9 - Sepsis, unspecified organism Is this a current diagnosis for this admission?: Yes Plan: Patient is a criteria with fever 101.9, leukocytosis, tachypnea, possible focus of infection. No septic shock. (2) Healthcare-associated pneumonia Is this a current diagnosis for this admission?: Yes Plan: Patient comes with acute on chronic hypoxic respiratory failure, seen saturation 88% on 3 L nasal cannula which is her baseline, no saturating 97% on BiPAP. Patient was discharged from our facility on 07/10, will be treated with broad-spectrum antibiotics. IV cefepime and IV Levaquin. We will send influenza A and B. Incentive spirometry. Sputum culture. Respiratory therapy consult. Nebulizer treatments as needed. Do not feel the patient needs to be on steroids. (3) Lactic acidosis Is this a current diagnosis for this admission?: Yes Plan: Lactic acid 3.3, patient receiving IV fluids and antibiotics. Will reassess this value in the morning symptoms are improving. (4) Acute and chronic respiratory failure ([id number]) Qualifiers: Respiratory failure complication: unspecified whether with hypoxia or hypercapnia Qualified Code(s): J96.20 - Acute and chronic respiratory failure , unspecified whether with hypoxia or hypercapnia Is this a current diagnosis for this admission?: Yes Plan: Patient at home on 2 L oxygen via nasal cannula, currently on BiPAP as her oxygen saturation dropped to low 80s at home. Rest as per prior assessment. (5) COPD (chronic obstructive pulmonary disease) Qualifiers: Chronic bronchitis type: unspecified Is this a current diagnosis for this admission?: Yes Plan: Patient can have in addition to pneumonia a COPD exacerbation component. Unfortunately patient is still smoking. As per prior assessments. Continue with home bronchodilators. (6) CAD (coronary artery disease) Qualifiers: Coronary Disease-Associated Artery/Lesion type: [place] artery [place] vs. transplanted heart: [place] heart Associated angina: without angina Qualified Code(s): I25.10 - Atherosclerotic heart disease of [place] coronary artery without angina pectoris Is this a current diagnosis for this admission?: Yes Plan: Patient does not have any cardiac symptomatology. Continue with home medications (7) Chronic diastolic CHF (congestive heart failure) Is this a current diagnosis for this admission?: Yes Plan: Patient is currently receiving IV fluids, usually on Lasix 20 mg at home. No symptoms of CHF exacerbation, seems to be compensated (8) Tobacco dependence Is this a current diagnosis for this admission?: Yes Plan: Tells me she smokes about 5 cigarettes a day, will place nicotine patch 14 mg a day (9) Diabetes mellitus type 2 in obese Is this a current diagnosis for this admission?: Yes Plan: Metformin will be on hold. Accu-Cheks q. before meals and at bedtime, insulin regular sliding scale and hypoglycemia protocol. - Time Time Spent: 30 to 50 Minutes - Inpatient Certification Based on my medical assessment, after consideration of the patient's comorbidities, presenting symptoms, or acuity I expect that the services needed warrant INPATIENT care.: Yes I certify that my determination is in accordance with my understanding of Medicare's requirements for reasonable and necessary INPATIENT services [42 CFR 412.3e].: Yes Medical Necessity: Risk of Diagnosis Which Will Require Inpatient Eval/Care/ Monitoring
[2018-08-25] MEDS ORDERED: GABAPENTIN 400 MG CAPSULE PO ONE (23:45)
[2018-08-25] MEDS ORDERED: FLUTICASONE/SALMETEROL DISKUS 250-50 MCG/DOSE IH ONE (23:59)
[2018-08-25] MEDS ORDERED: LEVOFLOXACIN 750 MG/D5W RTU 750 MG/150 ML RTUPB IV ONE (23:59)
[2018-08-26 01:46] LABS: A TYPE INFLUENZA AG NEGATIVE (NEGATIVE); B INFLUENZA AG NEGATIVE (NEGATIVE)
[2018-08-26] MEDS: IPRATROPIUM/ALBUTEROL 0.5-2.5 MG/3 ML AMPUL NEB PRN ×2 (02:03→22:16)
[2018-08-26 02:15] LABS: APPEARANCE,URINE SLIGHTLY-CLOUDY; BILIRUBIN,URINE NEGATIVE (NEGATIVE); COLOR,URINE YELLOW; GLUCOSE, URINE 50 mg/dL (NEGATIVE); KETONES,URINE NEGATIVE (NEGATIVE); LEUKOCYTE ESTERASE,URINE NEGATIVE (NEGATIVE); NITRITE,URINE NEGATIVE (NEGATIVE); PROTEIN,URINE 30 mg/dL (NEGATIVE); URINE SPECIFIC GRAVITY 1.026; UROBILINOGEN,URINE NEGATIVE mg/dL (<2.0)
[2018-08-26] MEDS: HYDROCODONE/ACETAMINOPHEN 5-325 MG TABLET PO PRN ×2 (02:52→14:51)
[2018-08-26 06:12] LABS: HEMATOCRIT 33.5 % (36.0-47.0); HEMOGLOBIN 11.1 g/dL (12.0-15.5); MEAN CORPUSCULAR HEMOGLOBIN 29.4 pg (27.0-33.4); MEAN CORPUSCULAR HGB CONC 33.2 g/dL (32.0-36.0); MEAN CORPUSCULAR VOLUME 89 fl (80-97); PLATELET COUNT 159 10^3/uL (150-450); RED BLOOD COUNT 3.78 10^6/uL (3.72-5.28); RED CELL DISTRIBUTION WIDTH 14.4 % (11.5-14.0); WHITE BLOOD COUNT 10.3 10^3/uL (4.0-10.5)
[2018-08-26 06:23] LABS: ANION GAP 11 (5-19); BLOOD UREA NITROGEN 24 mg/dL (7-20); CALCIUM 8.8 mg/dL (8.4-10.2); CARBON DIOXIDE 27 mmol/L (22-30); CHLORIDE 100 mmol/L (98-107); GLUCOSE 205 mg/dL (75-110); POTASSIUM 4.3 mmol/L (3.6-5.0); SODIUM 137.7 mmol/L (137-145)
[2018-08-26 06:33] LABS: ABSOLUTE LYMPHOCYTES# (MANUAL) 0.1 10^3/uL (0.5-4.7); ABSOLUTE NEUTROPHILS# (MANUAL) 10.2 10^3/uL (1.7-8.2); BASOPHILS % (MANUAL) 0 % (0-2); EOSINOPHILS % (MANUAL) 0 % (0-6); LYMPHOCYTES % (MANUAL) 1 % (13-45); MONOCYTES % (MANUAL) 0 % (3-13); SEGMENTED NEUTROPHILS % (MAN) 99 % (42-78); TOTAL CELLS COUNTED 100; TOXIC GRANULATION SLIGHT
[2018-08-26 06:34] LABS: PLATELET COMMENT ADEQUATE; RBC MORPHOLOGY COMMENT NORMO-CYTIC/CHROMIC
[2018-08-26 06:39] LABS: ARTERIAL BLOOD BASE EXCESS 1.4 mmol/L; ARTERIAL BLOOD H2CO3 1.39 mmol/L (1.05-1.35); ARTERIAL BLOOD HCO3 26.9 mmol/L (20-24); ARTERIAL BLOOD O2 SATURATION 91.5 % (94-98); ARTERIAL BLOOD PCO2 46.2 mmHg (35-45); ARTERIAL BLOOD PH 7.38 (7.35-7.45); ARTERIAL BLOOD PO2 62.6 mmHg (80-100); ARTERIAL BLOOD TOTAL CO2 28.3 mmol/L (21-25)
[2018-08-26 06:40] LABS: ARTERIAL BLOOD FIO2 3L
[2018-08-26] MEDS: INSULIN REG, HUMAN 100 UNIT/ML 3 ML VIAL (PYX) SUBCUT PRN ×3 (07:54→16:27)
[2018-08-26] MEDS: NICOTINE 14 MG/24 HR PATCH.TD24 TD PRN (07:55)
[2018-08-26] MEDS: SUCRALFATE 1 GM TABLET PO SCH ×4 (07:56→21:36)
[2018-08-26] MEDS: CEFEPIME 2 GM/D5W RTU 2 GM/50 ML RTUPB IV SCH ×2 (09:17→21:33)
[2018-08-26] MEDS: LANSOPRAZOLE 30 MG TAB.RAP.DR PO SCH (09:17)
[2018-08-26] MEDS: GUAIFENESIN 600 MG TABLET.SA PO SCH ×2 (09:18→21:36)
[2018-08-26] MEDS: GABAPENTIN 400 MG CAPSULE PO SCH ×2 (09:18→21:36)
[2018-08-26] MEDS: LISINOPRIL 5 MG TABLET PO SCH (09:18)
[2018-08-26] MEDS: ENOXAPARIN SODIUM INJ 40 MG/0.4 ML DISP.SYRIN SUBCUT SCH (09:21)
--- NOTE | 2018-08-26 10:12 | EKG REPORT ---
SEVERITY:- ABNORMAL ECG - SINUS RHYTHM LEFT BUNDLE BRANCH BLOCK : Confirmed by: Francisca Marin 26-Aug-2018 10:11:20
[2018-08-26] MEDS: FLUTICASONE/SALMETEROL DISKUS 250-50 MCG/DOSE IH SCH ×2 (10:39→21:36)
[2018-08-26] MEDS: TIOTROPIUM BROMIDE DPI 5 CAP/KIT (18 MCG/CAP) IH SCH (10:39)
[2018-08-26] MEDS: ACETAMINOPHEN 325 MG TABLET PO PRN (12:58)
--- NOTE | 2018-08-26 14:17 | PDOC PROGRESS REPORT ---
Subjective Progress Note for:: 08/26/18 Subjective:: No adverse events overnight. She is back on her 3 L of oxygen per nasal cannula is usually on. She was able to come off BiPAP fairly quickly. She says her breathing feels a lot better. She has had intermittently productive cough but she did not have to cough at all while I was in the room. She is been afebrile. Reason For Visit: PNEUMONIA Physical Exam Vital Signs: Temp Pulse Resp BP Pulse Ox 98.0 F 76 20 137/89 H 93 08/26/18 11:51 08/26/18 11:51 08/26/18 11:51 08/26/18 11:51 08/26/18 11:51 Intake & Output 08/25/18 08/26/18 08/27/18 06:59 06:59 06:59 Intake Total 200 Balance 200 Weight 81.3 kg General appearance: PRESENT: no acute distress, cooperative, disheveled, obese Respiratory exam: PRESENT: decreased breath sounds, rhonchi, unlabored. ABSENT : accessory muscle use, chest wall tenderness, prolonged expiratory phas, rales , tachypnea, wheezes Cardiovascular exam: PRESENT: RRR, +S1, +S2 Pulses: PRESENT: normal radial pulses, normal dorsalis pedis pul Vascular exam: PRESENT: normal capillary refill GI/Abdominal exam: PRESENT: normal bowel sounds, soft. ABSENT: guarding, rebound, tenderness Extremities exam: PRESENT: full ROM. ABSENT: joint swelling, pedal edema Musculoskeletal exam: PRESENT: normal inspection. ABSENT: deformity Neurological exam: PRESENT: alert, awake, oriented to person, oriented to place , oriented to time Skin exam: PRESENT: dry, warm Results Laboratory Results: 08/26/18 05:11 08/26/18 05:11 08/26/18 08/26/18 08/26/18 00:19 02:00 05:11 WBC 10.3 RBC 3.78 Hgb 11.1 L Hct 33.5 L MCV 89 MCH 29.4 MCHC 33.2 RDW 14.4 H Plt Count 159 Seg Neutrophils % Not Reportable Lymphocytes % Not Reportable Monocytes % Not Reportable Eosinophils % Not Reportable Basophils % Not Reportable Absolute Neutrophils Not Reportable Absolute Lymphocytes Not Reportable Absolute Monocytes Not Reportable Absolute Eosinophils Not Reportable Absolute Basophils Not Reportable Carbonic Acid HCO3/H2CO3 Ratio ABG pH ABG pCO2 ABG pO2 ABG HCO3 ABG O2 Saturation ABG Base Excess FiO2 Sodium Potassium Chloride Carbon Dioxide Anion Gap BUN Creatinine Est GFR ( Amer) Est GFR (Non-Af Amer) Glucose Lactic Acid 1.8 Calcium Urine Color YELLOW Urine Appearance SLIGHTLY-CLOUDY Urine pH 5.0 Ur Specific [place] 1.026 Urine Protein 30 H Urine Glucose (UA) 50 H Urine Ketones NEGATIVE Urine Blood NEGATIVE Urine Nitrite NEGATIVE Ur Leukocyte Esterase NEGATIVE Urine WBC (Auto) 1 Urine RBC (Auto) 1 08/26/18 08/26/18 08/26/18 05:11 06:32 07:25 WBC RBC Hgb Hct MCV MCH MCHC RDW Plt Count Seg Neutrophils % Lymphocytes % Monocytes % Eosinophils % Basophils % Absolute Neutrophils Absolute Lymphocytes Absolute Monocytes Absolute Eosinophils Absolute Basophils Carbonic Acid 1.39 H HCO3/H2CO3 Ratio 19:1 ABG pH 7.38 ABG pCO2 46.2 H ABG pO2 62.6 L ABG HCO3 26.9 H ABG O2 Saturation 91.5 L ABG Base Excess 1.4 FiO2 3L Sodium 137.7 Potassium 4.3 Chloride 100 Carbon Dioxide 27 Anion Gap 11 BUN 24 H Creatinine 1.14 Est GFR ( Amer) 57 L Est GFR (Non-Af Amer) 47 L Glucose 205 H Lactic Acid 1.5 Calcium 8.8 Urine Color Urine Appearance Urine pH Ur Specific [place] Urine Protein Urine Glucose (UA) Urine Ketones Urine Blood Urine Nitrite Ur Leukocyte Esterase Urine WBC (Auto) Urine RBC (Auto) Impressions: Chest X-Ray 08/25/18 20:08 IMPRESSION: 1. No acute cardiopulmonary abnormalities. 2. Slight blunting of the RIGHT costophrenic angle may be secondary to overlying soft tissue and positioning, however the possibility of small pleural effusion cannot be excluded. 2010 [employer]- All Rights Reserved Assessment & Plan - Diagnosis (1) Acute and chronic respiratory failure with hypoxia Is this a current diagnosis for this admission?: Yes Plan: Resolved. Off BiPAP. Back on 3 L nasal cannula continuously which is chronic. (2) Healthcare-associated pneumonia Is this a current diagnosis for this admission?: Yes Plan: Continue empiric antibiotics. Cultures pending. - Time Time Spent with patient: 25-34 minutes
[2018-08-26] MEDS ORDERED: LEVOFLOXACIN 750 MG/D5W RTU 750 MG/150 ML RTUPB IV SCH (22:00)
[2018-08-27] MEDS ORDERED: VANCOMYCIN HCL INJ 1000 MG VIAL IV PRN (00:23)
[2018-08-27] MEDS ORDERED: VANCOMYCIN PHARMACY TO DOSE MC PRN (00:24)
[2018-08-27] MEDS ORDERED: VANCOMYCIN HCL 1,500 MG in DEXTROSE 5%-WATER 250 ML IV ONE (00:30)
[2018-08-27] MEDS ORDERED: VANCOMYCIN HCL INJ 500 MG VIAL ONE (00:51)
[2018-08-27] MEDS ORDERED: VANCOMYCIN HCL INJ 1000 MG VIAL ONE (00:51)
[2018-08-27] MEDS: HYDROCODONE/ACETAMINOPHEN 5-325 MG TABLET PO PRN ×2 (01:59→15:38)
[2018-08-27] MEDS: ACETAMINOPHEN 325 MG TABLET PO PRN (03:35)
[2018-08-27] MEDS: SUCRALFATE 1 GM TABLET PO SCH ×4 (08:14→21:28)
[2018-08-27] MEDS: CEFEPIME 2 GM/D5W RTU 2 GM/50 ML RTUPB IV SCH ×2 (09:00→21:27)
[2018-08-27] MEDS: FLUTICASONE/SALMETEROL DISKUS 250-50 MCG/DOSE IH SCH ×2 (09:03→21:29)
[2018-08-27] MEDS: GABAPENTIN 400 MG CAPSULE PO SCH ×2 (09:04→21:28)
[2018-08-27] MEDS: TIOTROPIUM BROMIDE DPI 5 CAP/KIT (18 MCG/CAP) IH SCH (09:04)
[2018-08-27] MEDS: GUAIFENESIN 600 MG TABLET.SA PO SCH ×2 (09:04→21:28)
[2018-08-27] MEDS: ENOXAPARIN SODIUM INJ 40 MG/0.4 ML DISP.SYRIN SUBCUT SCH (09:04)
[2018-08-27] MEDS: LISINOPRIL 5 MG TABLET PO SCH (09:05)
[2018-08-27] MEDS: LANSOPRAZOLE 30 MG TAB.RAP.DR PO SCH (09:05)
[2018-08-27] MEDS: NICOTINE 14 MG/24 HR PATCH.TD24 TD PRN (09:05)
[2018-08-27] MEDS: IPRATROPIUM/ALBUTEROL 0.5-2.5 MG/3 ML AMPUL NEB PRN (18:31)
[2018-08-27] MEDS: VANCOMYCIN HCL 1,250 MG in DEXTROSE 5%-WATER 250 ML IV SCH (21:26)
[2018-08-28] MEDS: LEVOFLOXACIN 750 MG/D5W RTU 750 MG/150 ML RTUPB IV SCH (00:18)
[2018-08-28] MEDS: ACETAMINOPHEN 325 MG TABLET PO PRN ×2 (00:53→13:50)
[2018-08-28] MEDS: HYDROCODONE/ACETAMINOPHEN 5-325 MG TABLET PO PRN ×2 (03:23→21:36)
[2018-08-28 06:36] LABS: HEMATOCRIT 31.9 % (36.0-47.0); HEMOGLOBIN 10.6 g/dL (12.0-15.5); MEAN CORPUSCULAR HEMOGLOBIN 29.6 pg (27.0-33.4); MEAN CORPUSCULAR HGB CONC 33.3 g/dL (32.0-36.0); MEAN CORPUSCULAR VOLUME 89 fl (80-97); PLATELET COUNT 159 10^3/uL (150-450); RED BLOOD COUNT 3.58 10^6/uL (3.72-5.28); WHITE BLOOD COUNT 10.1 10^3/uL (4.0-10.5)
[2018-08-28 06:56] LABS: ANION GAP 10 (5-19); BLOOD UREA NITROGEN 33 mg/dL (7-20); CALCIUM 8.9 mg/dL (8.4-10.2); CARBON DIOXIDE 24 mmol/L (22-30); CHLORIDE 104 mmol/L (98-107); GLUCOSE 92 mg/dL (75-110); POTASSIUM 4.5 mmol/L (3.6-5.0)
[2018-08-28 06:57] LABS: ABSOLUTE LYMPHOCYTES# (MANUAL) 2.1 10^3/uL (0.5-4.7); ABSOLUTE MONOCYTES # (MANUAL) 0.4 10^3/uL (0.1-1.4); ABSOLUTE NEUTROPHILS# (MANUAL) 7.6 10^3/uL (1.7-8.2); BAND NEUTROPHILS % (MANUAL) 2 % (3-5); BASOPHILS % (MANUAL) 0 % (0-2); EOSINOPHILS % (MANUAL) 0 % (0-6); LYMPHOCYTES % (MANUAL) 21 % (13-45); MONOCYTES % (MANUAL) 4 % (3-13); RBC MORPHOLOGY COMMENT NORMO-CYTIC/CHROMIC; SEGMENTED NEUTROPHILS % (MAN) 73 % (42-78); TOTAL CELLS COUNTED 100
[2018-08-28 06:58] LABS: PLATELET COMMENT ADEQUATE
[2018-08-28] MEDS: SUCRALFATE 1 GM TABLET PO SCH ×4 (07:40→21:38)
[2018-08-28] MEDS: GUAIFENESIN 600 MG TABLET.SA PO SCH ×2 (09:17→21:38)
[2018-08-28] MEDS: LANSOPRAZOLE 30 MG TAB.RAP.DR PO SCH (09:18)
[2018-08-28] MEDS: GABAPENTIN 400 MG CAPSULE PO SCH ×2 (09:18→21:42)
[2018-08-28] MEDS: LISINOPRIL 5 MG TABLET PO SCH (09:18)
[2018-08-28] MEDS: TIOTROPIUM BROMIDE DPI 5 CAP/KIT (18 MCG/CAP) IH SCH (09:19)
[2018-08-28] MEDS: FLUTICASONE/SALMETEROL DISKUS 250-50 MCG/DOSE IH SCH ×2 (09:19→21:35)
[2018-08-28] MEDS: ENOXAPARIN SODIUM INJ 40 MG/0.4 ML DISP.SYRIN SUBCUT SCH (09:19)
[2018-08-28] MEDS: CEFEPIME 2 GM/D5W RTU 2 GM/50 ML RTUPB IV SCH ×2 (09:49→21:42)
--- NOTE | 2018-08-28 15:38 | PDOC PROGRESS REPORT ---
Subjective Progress Note for:: 08/28/18 Subjective:: This patient was admitted with difficulty breathing or shortness of breath. She had been on BiPAP but it appears she has been off it with no difficulties. She has intermittent productive cough but no fever. She feels better today. She has been ambulatory Reason For Visit: PNEUMONIA Physical Exam Vital Signs: Temp Pulse Resp BP Pulse Ox 97.5 F 69 14 123/47 L 94 08/28/18 11:37 08/28/18 14:00 08/28/18 11:37 08/28/18 11:37 08/28/18 11:37 Intake & Output 08/27/18 08/28/18 08/29/18 06:59 06:59 06:59 Intake Total 790 2390 286 Balance 790 2390 286 Weight 84.4 kg 83.9 kg General appearance: PRESENT: no acute distress, well-developed, well-nourished Head exam: PRESENT: atraumatic, normocephalic Eye exam: PRESENT: conjunctiva pink, EOMI, PERRLA. ABSENT: scleral icterus Ear exam: PRESENT: normal external ear exam Mouth exam: PRESENT: moist, tongue midline Neck exam: ABSENT: carotid bruit, JVD, lymphadenopathy, thyromegaly Respiratory exam: PRESENT: crackles, symmetrical, unlabored. ABSENT: rales, rhonchi, wheezes Cardiovascular exam: PRESENT: RRR. ABSENT: diastolic murmur, rubs, systolic murmur Pulses: PRESENT: normal dorsalis pedis pul Vascular exam: PRESENT: normal capillary refill GI/Abdominal exam: PRESENT: normal bowel sounds, soft. ABSENT: distended, guarding, mass, organolmegaly, rebound, tenderness Rectal exam: PRESENT: deferred Extremities exam: PRESENT: full ROM. ABSENT: calf tenderness, clubbing, pedal edema Neurological exam: PRESENT: alert, awake, oriented to person, oriented to place , oriented to time, oriented to situation, CN II-XII grossly intact. ABSENT: motor sensory deficit Psychiatric exam: PRESENT: appropriate affect, normal mood. ABSENT: homicidal ideation, suicidal ideation Skin exam: PRESENT: dry, intact, warm. ABSENT: cyanosis, rash Results Laboratory Results: 08/28/18 06:23 08/28/18 06:23 08/28/18 08/28/18 06:23 06:23 WBC 10.1 RBC 3.58 L Hgb 10.6 L Hct 31.9 L MCV 89 MCH 29.6 MCHC 33.3 RDW 14.0 Plt Count 159 Seg Neutrophils % Not Reportable Lymphocytes % Not Reportable Monocytes % Not Reportable Eosinophils % Not Reportable Basophils % Not Reportable Absolute Neutrophils Not Reportable Absolute Lymphocytes Not Reportable Absolute Monocytes Not Reportable Absolute Eosinophils Not Reportable Absolute Basophils Not Reportable Sodium 138.0 Potassium 4.5 Chloride 104 Carbon Dioxide 24 Anion Gap 10 BUN 33 H Creatinine 1.19 Est GFR ( Amer) 54 L Est GFR (Non-Af Amer) 45 L Glucose 92 Calcium 8.9 08/26/18 02:00 Clean Catch Midstream Urine Culture - Final NO GROWTH 2 DAYS Impressions: Chest X-Ray 08/25/18 20:08 IMPRESSION: 1. No acute cardiopulmonary abnormalities. 2. Slight blunting of the RIGHT costophrenic angle may be secondary to overlying soft tissue and positioning, however the possibility of small pleural effusion cannot be excluded. 2011 [employer]- All Rights Reserved Assessment & Plan - Time Time Spent with patient: 15-24 minutes Medications reviewed and adjusted accordingly: Yes Anticipated discharge: Home Within: within 24 hours - Inpatient Certification Based on my medical assessment, after consideration of the patient's comorbidities, presenting symptoms, or acuity I expect that the services needed warrant INPATIENT care.: Yes Medical Necessity: Need Close Monitoring Due to Risk of Patient Decompensation, Need for IV Antibiotics - Plan Summary Plan Summary: Acute on chronic respiratory failure with hypoxia -tolerating nasal cannula oxygen. She does use home oxygen. 2. Healthcare associated pneumonia. She is currently on Levaquin. Cont Vanc till repeat BC available 3. Possible home in am if stable
--- NOTE | 2018-08-28 15:39 | PDOC PROGRESS REPORT ---
Subjective Progress Note for:: 08/27/18 Subjective:: This patient was admitted with difficulty breathing or shortness of breath. She had been on BiPAP but it appears she has been off it with no difficulties. She has intermittent productive cough but no fever. Reason For Visit: PNEUMONIA Physical Exam Vital Signs: Temp Pulse Resp BP Pulse Ox 97.6 F 58 L 22 H 148/75 H 96 08/27/18 11:33 08/27/18 14:00 08/27/18 11:33 08/27/18 11:33 08/27/18 11:33 Intake & Output 08/26/18 08/27/18 08/28/18 06:59 06:59 06:59 Intake Total 790 673 Balance 790 673 Weight 81.3 kg 84.4 kg General appearance: PRESENT: no acute distress, well-developed, well-nourished Head exam: PRESENT: atraumatic, normocephalic Eye exam: PRESENT: conjunctiva pink, EOMI, PERRLA. ABSENT: scleral icterus Ear exam: PRESENT: normal external ear exam Mouth exam: PRESENT: moist, tongue midline Neck exam: ABSENT: carotid bruit, JVD, lymphadenopathy, thyromegaly Respiratory exam: PRESENT: clear to auscultation chago. ABSENT: rales, rhonchi, wheezes Cardiovascular exam: PRESENT: RRR. ABSENT: diastolic murmur, rubs, systolic murmur Pulses: PRESENT: normal dorsalis pedis pul Vascular exam: PRESENT: normal capillary refill GI/Abdominal exam: PRESENT: normal bowel sounds, soft. ABSENT: distended, guarding, mass, organolmegaly, rebound, tenderness Rectal exam: PRESENT: deferred Extremities exam: PRESENT: full ROM. ABSENT: calf tenderness, clubbing, pedal edema Neurological exam: PRESENT: alert, awake, oriented to person, oriented to place , oriented to time, oriented to situation, CN II-XII grossly intact. ABSENT: motor sensory deficit Psychiatric exam: PRESENT: appropriate affect, normal mood. ABSENT: homicidal ideation, suicidal ideation Skin exam: PRESENT: dry, intact, warm. ABSENT: cyanosis, rash Results Laboratory Results: 08/26/18 05:11 08/26/18 05:11 Impressions: Chest X-Ray 08/25/18 20:08 IMPRESSION: 1. No acute cardiopulmonary abnormalities. 2. Slight blunting of the RIGHT costophrenic angle may be secondary to overlying soft tissue and positioning, however the possibility of small pleural effusion cannot be excluded. 2011 [employer]- All Rights Reserved Assessment & Plan - Time Time Spent with patient: 15-24 minutes Medications reviewed and adjusted accordingly: Yes Anticipated discharge: Home - Inpatient Certification Based on my medical assessment, after consideration of the patient's comorbidities, presenting symptoms, or acuity I expect that the services needed warrant INPATIENT care.: Yes Medical Necessity: Need Close Monitoring Due to Risk of Patient Decompensation, Need for IV Antibiotics - Plan Summary Plan Summary: Acute on chronic respiratory failure with hypoxia currently off BiPAP and tolerating nasal cannula oxygen. She does use home oxygen. 2. Healthcare associated pneumonia. She is currently on Levaquin. Patient was started on vancomycin in addition last night as 1 of her blood cultures came back positive for gram-positive cocci in clusters. We will repeat blood cultures and adjust antibiotics as needed
[2018-08-28] MEDS: IPRATROPIUM/ALBUTEROL 0.5-2.5 MG/3 ML AMPUL NEB PRN (20:20)
[2018-08-28] MEDS: INSULIN REG, HUMAN 100 UNIT/ML 3 ML VIAL (PYX) SUBCUT PRN (22:37)
[2018-08-28] MEDS: VANCOMYCIN HCL 1,250 MG in DEXTROSE 5%-WATER 250 ML IV SCH (22:44)
[2018-08-29] MEDS: ACETAMINOPHEN 325 MG TABLET PO PRN ×2 (00:32→08:28)
[2018-08-29] MEDS: LEVOFLOXACIN 750 MG/D5W RTU 750 MG/150 ML RTUPB IV SCH (00:55)
[2018-08-29] MEDS: SUCRALFATE 1 GM TABLET PO SCH ×4 (08:29→21:53)
[2018-08-29] MEDS: IPRATROPIUM/ALBUTEROL 0.5-2.5 MG/3 ML AMPUL NEB PRN (09:35)
[2018-08-29] MEDS: LANSOPRAZOLE 30 MG TAB.RAP.DR PO SCH (10:50)
[2018-08-29] MEDS: GUAIFENESIN 600 MG TABLET.SA PO SCH ×2 (10:50→21:53)
[2018-08-29] MEDS: LISINOPRIL 5 MG TABLET PO SCH (10:50)
[2018-08-29] MEDS: GABAPENTIN 400 MG CAPSULE PO SCH ×2 (10:50→21:53)
[2018-08-29] MEDS: FLUTICASONE/SALMETEROL DISKUS 250-50 MCG/DOSE IH SCH ×2 (10:51→21:53)
[2018-08-29] MEDS: TIOTROPIUM BROMIDE DPI 5 CAP/KIT (18 MCG/CAP) IH SCH (10:51)
[2018-08-29] MEDS: CEFEPIME 2 GM/D5W RTU 2 GM/50 ML RTUPB IV SCH ×2 (10:51→21:51)
[2018-08-29] MEDS: ENOXAPARIN SODIUM INJ 40 MG/0.4 ML DISP.SYRIN SUBCUT SCH (10:51)
--- NOTE | 2018-08-29 15:34 | PDOC PROGRESS REPORT ---
Subjective Progress Note for:: 08/29/18 Subjective:: This patient was admitted with difficulty breathing or shortness of breath. She had been on BiPAP but it appears she has been off it with no difficulties. She has intermittent productive cough but no fever. Patient gives vague symptoms of not feeling well today. There is no fever and her vital signs remained stable. She has been ambulating. She just says she does not feel well enough to go home today. Reason For Visit: PNEUMONIA Physical Exam Vital Signs: Temp Pulse Resp BP Pulse Ox 97.7 F 69 20 136/68 H 96 08/29/18 11:34 08/29/18 11:34 08/29/18 11:34 08/29/18 11:34 08/29/18 11:34 Intake & Output 08/28/18 08/29/18 08/30/18 06:59 06:59 06:59 Intake Total 2390 1754 524 Balance 2390 1754 524 Weight 83.9 kg 86.4 kg General appearance: PRESENT: no acute distress, well-developed, well-nourished Head exam: PRESENT: atraumatic, normocephalic Eye exam: PRESENT: conjunctiva pink, EOMI, PERRLA. ABSENT: scleral icterus Ear exam: PRESENT: normal external ear exam Mouth exam: PRESENT: moist, tongue midline Neck exam: ABSENT: carotid bruit, JVD, lymphadenopathy, thyromegaly Respiratory exam: PRESENT: decreased breath sounds, unlabored. ABSENT: rales, rhonchi, wheezes Cardiovascular exam: PRESENT: RRR. ABSENT: diastolic murmur, rubs, systolic murmur Pulses: PRESENT: normal dorsalis pedis pul Vascular exam: PRESENT: normal capillary refill GI/Abdominal exam: PRESENT: normal bowel sounds, soft. ABSENT: distended, guarding, mass, organolmegaly, rebound, tenderness Rectal exam: PRESENT: deferred Extremities exam: PRESENT: full ROM. ABSENT: calf tenderness, clubbing, pedal edema Neurological exam: PRESENT: alert, awake, oriented to person, oriented to place , oriented to time, oriented to situation, CN II-XII grossly intact. ABSENT: motor sensory deficit Psychiatric exam: PRESENT: appropriate affect, normal mood. ABSENT: homicidal ideation, suicidal ideation Skin exam: PRESENT: dry, intact, warm. ABSENT: cyanosis, rash Results Laboratory Results: 08/28/18 06:23 08/28/18 06:23 08/26/18 02:00 Clean Catch Midstream Urine Culture - Final NO GROWTH 2 DAYS Impressions: Chest X-Ray 08/25/18 20:08 IMPRESSION: 1. No acute cardiopulmonary abnormalities. 2. Slight blunting of the RIGHT costophrenic angle may be secondary to overlying soft tissue and positioning, however the possibility of small pleural effusion cannot be excluded. 2010 [employer]- All Rights Reserved Assessment & Plan - Time Time Spent with patient: 15-24 minutes Medications reviewed and adjusted accordingly: Yes Anticipated discharge: Home Within: within 24 hours - Inpatient Certification Based on my medical assessment, after consideration of the patient's comorbidities, presenting symptoms, or acuity I expect that the services needed warrant INPATIENT care.: Yes Medical Necessity: Need for Nebulizer Therapy and Monitoring of Response, Need for IV Antibiotics, Risk of Complication if Not Cared For in Hospital - Plan Summary Plan Summary: 1.Acute on chronic respiratory failure with hypoxia -tolerating nasal cannula oxygen. She uses 3L home oxygen. 2. Healthcare associated pneumonia. She is currently on Levaquin and Cefepime. BC yielding Staph hominis, a contaminant. Will dc Vanc 3. Possible home in am if stable. Patient was not feeling well and had vague complaints today so will monitor overnight.
[2018-08-29] MEDS ORDERED: LEVOFLOXACIN 750 MG TABLET PO SCH (22:00)
[2018-08-29] MEDS: HYDROCODONE/ACETAMINOPHEN 5-325 MG TABLET PO PRN (22:12)
[2018-08-30 06:29] LABS: ABSOLUTE EOSINOPHILS # (AUTO) 0.3 10^3/uL (0.0-0.6); ABSOLUTE LYMPHOCYTES (AUTO) 2.4 10^3/uL (0.5-4.7); ABSOLUTE MONOCYTES (AUTO) 0.7 10^3/uL (0.1-1.4); ABSOLUTE NEUT (AUTO) 6.9 10^3/uL (1.7-8.2); BASOPHILS % (AUTO) 0.2 % (0-2); EOSINOPHILS % (AUTO) 2.6 % (0-6); MEAN CORPUSCULAR HGB CONC 33.4 g/dL (32.0-36.0); MEAN CORPUSCULAR VOLUME 90 fl (80-97); MONOCYTES % (AUTO) 6.8 % (3-13); PLATELET COUNT 178 10^3/uL (150-450); RED BLOOD COUNT 3.68 10^6/uL (3.72-5.28); RED CELL DISTRIBUTION WIDTH 14.5 % (11.5-14.0); SEGMENTED NEUTROPHILS % (AUTO) 67.4 % (42-78); TOTAL CELLS COUNTED % (AUTO) 100 %; WHITE BLOOD COUNT 10.3 10^3/uL (4.0-10.5)
[2018-08-30 06:41] LABS: ANION GAP 5 (5-19); BLOOD UREA NITROGEN 35 mg/dL (7-20); CARBON DIOXIDE 30 mmol/L (22-30); CHLORIDE 101 mmol/L (98-107); GLUCOSE 112 mg/dL (75-110); POTASSIUM 4.7 mmol/L (3.6-5.0); SODIUM 136.1 mmol/L (137-145)
[2018-08-30] MEDS: IPRATROPIUM/ALBUTEROL 0.5-2.5 MG/3 ML AMPUL NEB PRN (08:18)
[2018-08-30] MEDS: CEFEPIME 2 GM/D5W RTU 2 GM/50 ML RTUPB IV SCH (10:00)
[2018-08-30] MEDS: GABAPENTIN 400 MG CAPSULE PO SCH (10:00)
[2018-08-30] MEDS: LANSOPRAZOLE 30 MG TAB.RAP.DR PO SCH (10:00)
[2018-08-30] MEDS: TIOTROPIUM BROMIDE DPI 5 CAP/KIT (18 MCG/CAP) IH SCH (10:00)
[2018-08-30] MEDS: FLUTICASONE/SALMETEROL DISKUS 250-50 MCG/DOSE IH SCH (10:00)
[2018-08-30] MEDS: GUAIFENESIN 600 MG TABLET.SA PO SCH (10:01)
[2018-08-30] MEDS: ENOXAPARIN SODIUM INJ 40 MG/0.4 ML DISP.SYRIN SUBCUT SCH (10:01)
[2018-08-30] MEDS: LISINOPRIL 5 MG TABLET PO SCH (10:01)
[2018-08-30] MEDS: SUCRALFATE 1 GM TABLET PO SCH ×2 (10:01→11:38)
--- NOTE | 2018-08-30 10:37 | PDOC DISCHARGE SUMMARY ---
General - Admit/Disc Date/PCP Admission Date/Primary Care Provider: 08/25/18 22:43 KYLE NIETO MD Discharge Date: 08/30/18 - Discharge Diagnosis (1) Healthcare-associated pneumonia Is this a current diagnosis for this admission?: Yes (2) Acute and chronic respiratory failure ([id number]) Is this a current diagnosis for this admission?: Yes (3) Sepsis Is this a current diagnosis for this admission?: Yes (4) Diabetes mellitus type 2 in obese Is this a current diagnosis for this admission?: Yes (5) Diastolic CHF Is this a current diagnosis for this admission?: Yes (6) Tobacco abuse Is this a current diagnosis for this admission?: Yes (7) COPD (chronic obstructive pulmonary disease) Is this a current diagnosis for this admission?: Yes - Additional Information Resuscitation Status: Full Code Discharge Diet: Diabetic Discharge Activity: Activity As Tolerated Prescriptions: Levofloxacin [Levaquin 750 mg Tablet] 750 mg PO QHS #5 tablet Home Medications: Albuterol Sulfate [Proair HFA Inhalation Aerosol 8.5 gm MDI] 1 puff IH Q6HP PRN 07/09/18 Fluticasone/Salmeterol [Advair 250-50 Diskus 14 Dose/Diskus] 1 puff IH Q12 07/09 Hydrocodone/Acetaminophen [Hydrocodone-Acetamin 5-325 mg] 1 tab PO Q12HP PRN Ipratropium/Albuterol Sulfate [Iprat-Albut 0.5-3(2.5) mg/3 ml] 3 ml NEB RTQ6HP PRN 07/09/18 Metformin HCl [Glucophage 500 mg Tablet] 500 mg PO BID 07/09/18 Omeprazole 40 mg PO DAILY 07/09/18 Sucralfate [Carafate 1 gm Tablet] 1 gm PO MEALSHS 07/09/18 Tiotropium [place] [Spiriva Handihaler 5 Cap/Kit (18 Mcg/Cap)] 1 puff IH DAILY 07/09/18 Aspirin [Aspirin EC] 81 mg PO DAILY 08/26/18 Gabapentin [Neurontin 300 mg Capsule] 300 mg PO TID 08/26/18 Guaifenesin [Mucinex Sr 600 mg Tablet.sa] 600 mg PO Q12 tablet.sa 08/30/18 Levofloxacin [Levaquin 750 mg Tablet] 750 mg PO QHS #5 tablet 08/30/18 Lisinopril [Prinivil 5 mg Tablet] 5 mg PO DAILY tablet 08/30/18 Nicotine [Nicoderm 14 mg/24 Hr Transdermal Patch] 1 each TD DAILYP PRN patch.td24 08/30/18 History of Present Illness History of Present Illness: GAVI PEDRO is a 72 year old female with chronic respiratory failure on 3 L oxygen at home, COPD. Patient tells me that her symptoms started about 3 days ago with shortness of breath that has been progressing over time, associated with cough with brownish sputum, chills, sweating, subjective fever. Patient has received a flu shot today and states she worsened. When EMS arrived she was saturating in the low 80s and her oxygen has been increased from 3 L to 6 L , on respiratory distress. Patient was initiated on BiPAP on her way to the hospital. In the emergency department patient tachypneic on the 30s, hypoxic at 88% on 3 L oxygen, temperature 101.3, respiratory rate 37. Chest x-ray one view negative. Currently patient on BiPAP saturating 97%. Lactic acid 3.3. VBG 7.32/56 Denies chest pain, complains of diffuse abdominal pain with 3-4 nonbloody bowel movements a day, denies dysuria, hematuria or frequency. Hospital Course Hospital Course: Patient was admitted with difficulty breathing and shortness of breath that was progressive prior to admission. She was found to be septic as well as with acute respiratory failure on initial arrival to the emergency room. She was initially on BiPAP but this was subsequently weaned off with improvement in her symptoms. Chest x-ray showed possible pleural effusion and patient was thought to have possible pneumonia. She was treated with intravenous antibiotics up to the day of discharge and she will be discharged on oral antibiotics to complete a course of 10 days. She had a blood culture positive for Staphylococcus however this was deemed a contaminant and no further interventions needed. Patient has gotten much better over her hospital stay and she is close to her baseline. She has been ambulating and she is back to her chronic oxygen requirement of 3 L. At this time it appears patient has benefited from a hospital stay and she is been discharged home in stable condition. Physical Exam Vital Signs: Temp Pulse Resp BP Pulse Ox 97.6 F 79 20 143/61 H 92 08/30/18 07:21 08/30/18 08:18 08/30/18 08:18 08/30/18 07:21 08/30/18 08:18 Intake & Output 08/29/18 08/30/18 08/31/18 06:59 06:59 06:59 Intake Total 1754 1024 Balance 1754 1024 Weight 86.4 kg 82.5 kg General appearance: PRESENT: no acute distress, well-developed, well-nourished Head exam: PRESENT: atraumatic, normocephalic Eye exam: PRESENT: conjunctiva pink, EOMI, PERRLA. ABSENT: scleral icterus Ear exam: PRESENT: normal external ear exam Mouth exam: PRESENT: moist, tongue midline Neck exam: ABSENT: carotid bruit, JVD, lymphadenopathy, thyromegaly Respiratory exam: PRESENT: decreased breath sounds, rhonchi. ABSENT: rales, wheezes Cardiovascular exam: PRESENT: RRR. ABSENT: diastolic murmur, rubs, systolic murmur Pulses: PRESENT: normal dorsalis pedis pul Vascular exam: PRESENT: normal capillary refill GI/Abdominal exam: PRESENT: normal bowel sounds, soft. ABSENT: distended, guarding, mass, organolmegaly, rebound, tenderness Rectal exam: PRESENT: deferred Extremities exam: PRESENT: full ROM. ABSENT: calf tenderness, clubbing, pedal edema Neurological exam: PRESENT: alert, awake, oriented to person, oriented to place , oriented to time, oriented to situation, CN II-XII grossly intact. ABSENT: motor sensory deficit Psychiatric exam: PRESENT: appropriate affect, normal mood. ABSENT: homicidal ideation, suicidal ideation Skin exam: PRESENT: dry, intact, warm. ABSENT: cyanosis, rash Results Laboratory Results: 08/30/18 06:10 08/30/18 06:10 08/30/18 08/30/18 06:10 06:10 WBC 10.3 RBC 3.68 L Hgb 11.0 L Hct 33.0 L MCV 90 MCH 30.0 MCHC 33.4 RDW 14.5 H Plt Count 178 Seg Neutrophils % 67.4 Lymphocytes % 23.0 Monocytes % 6.8 Eosinophils % 2.6 Basophils % 0.2 Absolute Neutrophils 6.9 Absolute Lymphocytes 2.4 Absolute Monocytes 0.7 Absolute Eosinophils 0.3 Absolute Basophils 0.0 Sodium 136.1 L Potassium 4.7 Chloride 101 Carbon Dioxide 30 Anion Gap 5 BUN 35 H Creatinine 0.93 Est GFR ( Amer) > 60 Est GFR (Non-Af Amer) 59 L Glucose 112 H Calcium 9.0 08/26/18 01:05 Sputum Gram Stain - Final 08/26/18 01:05 Sputum Sputum Culture - Final NORMAL CHRIS Impressions: Chest X-Ray 08/25/18 20:08 IMPRESSION: 1. No acute cardiopulmonary abnormalities. 2. Slight blunting of the RIGHT costophrenic angle may be secondary to overlying soft tissue and positioning, however the possibility of small pleural effusion cannot be excluded. 2010 [employer]- All Rights Reserved Qualifiers - * PATIENT BEING DISCHARGED WITH ANY OF THE FOLLOWING DIAGNOSIS: No Plan Time Spent: Greater than 30 Minutes
[2018-08-30 12:09] VITALS: BP 113/82
== END 2018-08-30 12:45 | disposition home or self-care (01) | DRG 871 ==
LOC: ER 19:47 → EH 22:43 → 3S 08-26 00:30
PROVIDERS: ADMIT Internal Medicine; ATTEND Internal Medicine
DX: A41.9 Sepsis, unspecified organism (principal); J96.21 Acute and chronic respiratory failure with hypoxia; J18.9 Pneumonia, unspecified organism; E87.2 Acidosis; I50.32 Chronic diastolic (congestive) heart failure; J44.1 Chronic obstructive pulmonary disease with (acute) exacerbation; I11.0 Hypertensive heart disease with heart failure; Z99.81 Dependence on supplemental oxygen; E11.8 Type 2 diabetes mellitus with unspecified complications; I25.10 Atherosclerotic heart disease of native coronary artery without angina pectoris; K21.9 Gastro-esophageal reflux disease without esophagitis; D64.9 Anemia, unspecified; F17.210 Nicotine dependence, cigarettes, uncomplicated; Z79.84 Long term (current) use of oral hypoglycemic drugs; Z79.51 Long term (current) use of inhaled steroids; Z79.899 Other long term (current) drug therapy
CPT/HCPCS: 36415; 71045; 80048; 80053; 81001; 82803; 82962; 83605; 84484; 85025; 85610; 87040; 87070; 87077; 87086; 87186; 87205; 87804; 93005; 93010; 94640; 94660; 94667; 94668; 94799; 96365; 96368; 96375; 99291; J0692; J1815; J1956; J2930; J3370; J3490; J7060; J7620

== ENCOUNTER 2018-09-14 09:04 | Day surgery (SDC) | payer MEDICARE ==
[~2018-09-14 09:04] MED LIST changes: -BUPIVACAINE HCL 0.75% INJ/PF (7.5 MG/1 ML) 10 ML SDV OD PRN; -CHONDR SU A NA/HYALUR INTRAOC KIT (SURGICARE) ONE; +EPINEPHRINE INJ 1 MG/10 ML DISP.SYRIN ONE; -EPINEPHRINE INJ/PF 1 MG/1 ML AMPULE ONE; +FLUMAZENIL INJ 0.5 MG/5 ML VIAL ONE; +GLUCAGON,HUMAN RECOMB 1 MG INJ ONE; -KETOROLAC TROMETHAMINE 0.45% 4 DROP/0.4 ML DROPERETTE OD PRN; -LIDOCAINE 4% INJ/PF (40 MG/ML) 5 ML AMPUL OD PRN; -MIDAZOLAM 2 MG/2 ML INJ ONE; +NALOXONE HCL INJ/PF 0.4 MG/1 ML SDV ONE; +ONDANSETRON HCL INJ/PF 4 MG/2 ML SDV ONE
[2018-09-14] MEDS: MIDAZOLAM 2 MG/2 ML INJ ONE ×2 (09:36→09:44)
[2018-09-14] MEDS: FENTANYL CITRATE INJ/PF 100 MCG/2 ML AMPUL ONE ×2 (09:38→09:40)
--- NOTE | 2018-09-14 09:49 | Operative Report ---
Operative Report DATE OF SURGERY: 09/14/18 Operative Report: The risks benefits and alternatives of the procedure explained to the patient in detail and informed consent is obtained.A GIF Olympus video scope was inserted into the patient's mouth and hypopharynx, the esophagus is identified intubated and insufflated, the scope was then advanced through the esophagus stomach and duodenum ,retroflexion maneuver is done the esophagus stomach and first and second portions of the duodenum examined PREOPERATIVE DIAGNOSIS: Epigastric pain POSTOPERATIVE DIAGNOSIS: Gastritis status post biopsy rule out Helicobacter pylori OPERATION: EGD with biopsy SURGEON: MARCIA GALVEZ ANESTHESIA: Moderate Sedation - 3 mg of Versed, 50 mcg of fentanyl. Conscious sedation monitoring time 30 minutes. TISSUE REMOVED OR ALTERED: As noted above. COMPLICATIONS: None. ESTIMATED BLOOD LOSS: None. INTRAOPERATIVE FINDINGS: As noted above. PROCEDURE: Patient tolerated the procedure well. No immediate postprocedure complications are noted. Patient is discharged in good condition. Discharge date 09/14/2018. Discharge diet: Regular. Discharge activity: Regular. 2-3-week follow-up to discuss findings. Patient is instructed call the office or proceed to the emergency room should there be any further proximal questions. Wait on the pathology.
[2018-09-14 10:48] VITALS: BP 104/70
[2018-09-14] MEDS ORDERED: IPRATROPIUM/ALBUTEROL 0.5-2.5 MG/3 ML AMPUL NEB ONE (11:30)
== END 2018-09-14 10:55 | disposition home or self-care (01) ==
LOC: END 09:04
PROVIDERS: ATTEND Internal Medicine Gastroenterology
DX: K29.50 Unspecified chronic gastritis without bleeding (principal); E78.5 Hyperlipidemia, unspecified; E11.9 Type 2 diabetes mellitus without complications; F17.210 Nicotine dependence, cigarettes, uncomplicated; I50.9 Heart failure, unspecified; J43.9 Emphysema, unspecified; K21.9 Gastro-esophageal reflux disease without esophagitis; Z79.82 Long term (current) use of aspirin; Z79.51 Long term (current) use of inhaled steroids; Z79.899 Other long term (current) drug therapy; Z79.84 Long term (current) use of oral hypoglycemic drugs; Z88.6 Allergy status to analgesic agent
CPT/HCPCS: 43239; 82962; 88305 ×2; J2250; J3010; J2405; J0171; J1610; J2310; J3490

== ENCOUNTER 2019-02-04 17:22 | Inpatient (IN) | payer MEDICARE ==
--- NOTE | 2019-02-04 17:57 | ER Document Report ---
ED Medical Screen (RME) - General Chief Complaint: Chest Pain Stated Complaint: CHEST PAIN Time Seen by Provider: 02/04/19 17:50 Primary Care Provider: KYLE NIETO MD [Primary Care Provider] - Follow up as needed Notes: 73-year-old female PMH COPD CHF here with complaints of shortness of breath cough productive yellow sputum and chest pain that has been ongoing for several days now. Today, the chest pain has worsened prompting her to come in for evaluation. The chest pain is worse with exertion but also with coughing. She feels more short of breath than usual (has baseline shortness of breath due to her COPD and uses 3 L of supplemental oxygen via nasal cannula all the time). The cough is a new cough and she does not usually have a baseline daily cough. Her last episode of pneumonia was about 1 year ago, she reports. EXAM Bibasilar rhonchi/rales RRR No significant lower extremity edema TRAVEL OUTSIDE OF THE [place] IN LAST 30 DAYS: No - Related Data Allergies/Adverse Reactions: ibuprofen [From Motrin] Allergy (Intermediate, Verified 02/04/19 17:23) RASH/UTICARTIA Past Medical History - Past Medical History Cardiac Medical History: Reports: Hx Congestive Heart Failure, Hx Coronary Artery Disease, Hx DVT, Hx Hypertension Denies: Hx Heart Attack, Hx Heart Murmur Pulmonary Medical History: Reports: Hx Asthma, Hx COPD, Hx Pneumonia Denies: Hx Bronchitis, Hx Respiratory Failure, Hx Sleep Apnea, Hx Tuberculosis Neurological Medical History: Denies: Hx Cerebrovascular Accident, Hx Seizures Endocrine Medical History: Reports: Hx Diabetes Mellitus Type 2 Renal/ Medical History: Reports: Hx Renal Insufficiency. Denies: Hx Peritoneal Dialysis GI Medical History: Reports: Hx Diverticulitis, Hx Gastroesophageal Reflux Disease. Denies: Hx Hepatitis, Hx Hiatal Hernia, Hx Pancreatitis, Hx Ulcer - ? Musculoskeltal Medical History: Reports Hx Arthritis Psychiatric Medical History: Denies: Hx Depression Traumatic Medical History: Reports: Hx Fractures - several broken ribs Infectious Medical History: Denies: Hx Hepatitis Past Surgical History: Reports: Hx Appendectomy, Hx Cholecystectomy, Hx Herniorrhaphy, Hx Hysterectomy, Hx Orthopedic Surgery - rotator cuff. Denies: Hx Mastectomy, Hx Open Heart Surgery, Hx Pacemaker - Immunizations Immunizations up to date: Yes Hx Diphtheria, Pertussis, Tetanus Vaccination: No History of Influenza Vaccine for 08/2017 - 01/2018 Season: Yes Influenza Administration Date for 08/2017 - 01/2018 Season: 08/22/18 Physical Exam - Vital signs Vitals: Temp Pulse Resp BP Pulse Ox 98.2 F 74 16 135/80 H 90 L 02/04/19 17:37 02/04/19 17:37 02/04/19 17:37 02/04/19 17:37 02/04/19 17:37 Course - Vital Signs Vital signs: Temp Pulse Resp BP Pulse Ox 98.2 F 74 16 135/80 H 90 L 02/04/19 17:37 02/04/19 17:37 02/04/19 17:37 02/04/19 17:37 02/04/19 17:37 Doctor's Discharge - Discharge Referrals: KYLE NIETO MD [Primary Care Provider] - Follow up as needed
[2019-02-04 18:29] LABS: ABSOLUTE BASOPHILS # (AUTO) 0.1 10^3/uL (0.0-0.2); ABSOLUTE EOSINOPHILS # (AUTO) 0.1 10^3/uL (0.0-0.6); ABSOLUTE MONOCYTES (AUTO) 0.6 10^3/uL (0.1-1.4); BASOPHILS % (AUTO) 0.9 % (0-2); EOSINOPHILS % (AUTO) 1.3 % (0-6); HEMATOCRIT 34.1 % (36.0-47.0); HEMOGLOBIN 11.2 g/dL (12.0-15.5); LYMPHOCYTES % (AUTO) 16.7 % (13-45); MEAN CORPUSCULAR HEMOGLOBIN 30.4 pg (27.0-33.4); MEAN CORPUSCULAR HGB CONC 32.9 g/dL (32.0-36.0); MEAN CORPUSCULAR VOLUME 92 fl (80-97); MONOCYTES % (AUTO) 5.4 % (3-13); PLATELET COUNT 196 10^3/uL (150-450); RED BLOOD COUNT 3.69 10^6/uL (3.72-5.28); RED CELL DISTRIBUTION WIDTH 14.4 % (11.5-14.0); SEGMENTED NEUTROPHILS % (AUTO) 75.7 % (42-78); TOTAL CELLS COUNTED % (AUTO) 100 %; WHITE BLOOD COUNT 11.9 10^3/uL (4.0-10.5)
[2019-02-04 18:42] LABS: ALANINE AMINOTRANSFERASE 6 U/L (9-52); ALBUMIN 4.2 g/dL (3.5-5.0); ALKALINE PHOSPHATASE 96 U/L (38-126); ANION GAP 11 (5-19); ASPARTATE AMINO TRANSFERASE 21 U/L (14-36); BILIRUBIN,DIRECT 0.4 mg/dL (0.0-0.4); BILIRUBIN,TOTAL 0.5 mg/dL (0.2-1.3); BLOOD UREA NITROGEN 20 mg/dL (7-20); CALCIUM 9.2 mg/dL (8.4-10.2); CARBON DIOXIDE 27 mmol/L (22-30); CHLORIDE 98 mmol/L (98-107); GLUCOSE 157 mg/dL (75-110); POTASSIUM 4.5 mmol/L (3.6-5.0); SODIUM 136.3 mmol/L (137-145); TOTAL PROTEIN 7.1 g/dL (6.3-8.2)
[2019-02-04 18:52] LABS: NT PRO BNP 1050 pg/mL (5-900)
[2019-02-04 18:53] LABS: TROPONIN I < 0.012 ng/mL
[2019-02-04] MEDS ORDERED: NORMAL SALINE 1000 ML 1,000 ML IV ONE (18:56)
--- NOTE | 2019-02-04 18:56 | RADIOLOGY REPORT (SQ) ---
EXAM DESCRIPTION: CHEST 2 VIEWS COMPLETED DATE/TIME: 02/04/2019 6:44 pm REASON FOR STUDY: SOB CP prod cough; eval pneumonia etc COMPARISON: 05/07/2018 EXAM PARAMETERS: NUMBER OF VIEWS: two views TECHNIQUE: Digital Frontal and Lateral radiographic views of the chest acquired. RADIATION DOSE: NA LIMITATIONS: none FINDINGS: LUNGS AND PLEURA: No opacities, masses or pneumothorax. No pleural effusion. MEDIASTINUM AND HILAR STRUCTURES: No masses or contour abnormalities. HEART AND VASCULAR STRUCTURES: Heart normal size. No evidence for failure. BONES: No acute findings. HARDWARE: None in the chest. OTHER: No other significant finding. IMPRESSION: NO ACUTE RADIOGRAPHIC FINDING IN THE CHEST. TECHNICAL DOCUMENTATION: JOB ID: [id number] [employer]- All Rights Reserved Reading location - IP/workstation name: [email or web address]
[2019-02-04] MEDS ORDERED: IPRATROPIUM/ALBUTEROL 0.5-2.5 MG/3 ML AMPUL NEB ONE (19:02)
[2019-02-04] MEDS ORDERED: METHYLPREDNISOLONE INJ 125 MG/2 ML SDV IV ONE (19:02)
[2019-02-04] MEDS ORDERED: CEFTRIAXONE 1 GM/D5W RTU 1 GM/50 ML RTUPB IV ONE (19:03)
[2019-02-04] MEDS ORDERED: AZITHROMYCIN INJ 500 MG VIAL IV ONE (19:03)
--- NOTE | 2019-02-04 19:04 | ER Document Report ---
ED General - General Chief Complaint: Chest Pain Stated Complaint: CHEST PAIN Time Seen by Provider: 02/04/19 17:50 Notes: Patient is a 73-year-old female with history of CHF and COPD that presents to the emergency department for chief complaint of productive cough, shortness of breath, difficulty breathing and chest pain. Patient states that her symptoms got much worse today, she is had some cough over the past day with subjective fevers and chills. She has had productive sputum. She is usually on 3 L nasal cannula at home, and has required increased oxygen at home. She states her breathing has been more labored as well. She started having chest pain today as well describes as worse with the cough, on the left side of her chest as well. She does have history of CAD and CHF, as well as hyperlipidemia. At this time she describes her pain as an aching in the chest, but is definitely worse with the cough. Describes as a 2 out of 10. Past Medical History: COPD, CHF, CAD, hypertension, hyperlipidemia, diabetes mellitus Past Surgical History: Appendectomy, cholecystectomy, hysterectomy Social History: Admits to smoking cigarettes daily, denies current alcohol or drug use. Family History: Reviewed and noncontributory for presenting illness Allergies: Reviewed, see documented allergy list. REVIEW OF SYSTEMS: Other than noted above, the 12 point review of systems was reviewed with the patient and were negative, all pertinent findings are included in the HPI. PHYSICAL EXAMINATION: Vital signs reviewed, nursing noted reviewed. GENERAL: Chronically ill-appearing female, obese, harsh productive cough on exam HEAD: Atraumatic, normocephalic. EYES: Eyes appear normal, extraocular movements intact, sclera anicteric, conjunctiva are normal. ENT: nares patent, oropharynx clear without exudates. Moist mucous membranes. NECK: Normal range of motion, supple without lymphadenopathy LUNGS: Diffuse inspiratory and expiratory wheezing noted throughout all lung blackmon, coarse lung sounds particularly on the right base with increased work of breathing HEART: Regular rate and rhythm without murmurs ABDOMEN: Soft, nontender, normoactive bowel sounds. No rebound, guarding, or rigidity. No masses appreciated. EXTREMITIES: Nontender, good range of motion, bilateral lower extremity edema, 1+ equal NEUROLOGICAL: No focal neurological deficits. Moves all extremities spontaneously Motor and sensory grossly intact on exam. PSYCH: Normal mood, normal affect. SKIN: Warm, Dry, normal turgor, no rashes or lesions noted on exposed skin TRAVEL OUTSIDE OF THE [place] IN LAST 30 DAYS: No - Related Data Allergies/Adverse Reactions: ibuprofen [From Motrin] Allergy (Intermediate, Verified 02/04/19 17:23) RASH/UTICARTIA Past Medical History - Social History Smoking Status: Current Every Day Smoker Family History: Reviewed & Not Pertinent, Hypertension Patient has suicidal ideation: No Patient has homicidal ideation: No - Past Medical History Cardiac Medical History: Reports: Hx Congestive Heart Failure, Hx Coronary Artery Disease, Hx DVT, Hx Hypertension Denies: Hx Heart Attack, Hx Heart Murmur Pulmonary Medical History: Reports: Hx Asthma, Hx COPD, Hx Pneumonia Denies: Hx Bronchitis, Hx Respiratory Failure, Hx Sleep Apnea, Hx Tu berculosis Neurological Medical History: Denies: Hx Cerebrovascular Accident, Hx Seizures Endocrine Medical History: Reports: Hx Diabetes Mellitus Type 2 Renal/ Medical History: Reports: Hx Renal Insufficiency. Denies: Hx Peritoneal Dialysis GI Medical History: Reports: Hx Diverticulitis, Hx Gastroesophageal Reflux Disease. Denies: Hx Hepatitis, Hx Hiatal Hernia, Hx Pancreatitis, Hx Ulcer - ? Musculoskeletal Medical History: Reports Hx Arthritis Psychiatric Medical History: Denies: Hx Depression Traumatic Medical History: Reports: Hx Fractures - several broken ribs Infectious Medical History: Denies: Hx Hepatitis Past Surgical History: Reports: Hx Appendectomy, Hx Cholecystectomy, Hx Herniorrhaphy, Hx Hysterectomy, Hx Orthopedic Surgery - rotator cuff. Denies: Hx Mastectomy, Hx Open Heart Surgery, Hx Pacemaker - Immunizations Immunizations up to date: Yes Hx Diphtheria, Pertussis, Tetanus Vaccination: No Hx Pneumococcal Vaccination: 08/30/14 Physical Exam - Vital signs Vitals: Temp Pulse Resp BP Pulse Ox 98.2 F 74 16 135/80 H 90 L 02/04/19 17:37 02/04/19 17:37 02/04/19 17:37 02/04/19 17:37 02/04/19 17:37 Course - Re-evaluation Re-evalutation: Patient seen and examined vital signs reviewed. Laboratory data and imaging were ordered as appropriate for the patient's presenting symptoms and complaint, with consideration of any critical or life threatening conditions that may be associated with their obtained history and exam as noted above. Patient was treated with DuoNeb breathing treatments, IV Solu-Medrol, started on IV antibiotics with Rocephin and azithromycin Results were reviewed when available and demonstrated chest x-ray that did not demonstrate a new infiltrate, however clinically the patient was having subjective fevers, productive sputum, and increased work of breathing, given underlying chronic lung disease, will treat the patient clinically as a developing pneumonia, she also had a leukocytosis on her blood work. She had a mild elevation in lactate of 2.2, however the patient at this time does not meet sepsis criteria, I did give her IV fluids, in addition to the medicines noted above, she was then placed on BiPAP, after breathing treatment she did have some increased work of breathing. Blood gas was ordered. The patient was re-evaluated and was improved and tolerating BiPAP Evaluation was most consistent with pneumonia, acute exacerbation of COPD, leukocytosis Results were discussed with the patient at this point after careful consideration I feel that that patient should be admitted to the hospital. This was discussed with the patient that it is in the best interest for their care to be admitted for further evaluation and management. Patient agreed with this plan of care. A call was placed to the admitted physician, Dr. Bartlett who graciously accepted the patient onto their service. *Note is created using voice recognition software and may contain spelling, syntax or grammatical errors. Laboratory 02/04/19 02/04/19 02/04/19 17:58 17:58 17:58 WBC 11.9 H RBC 3.69 L Hgb 11.2 L Hct 34.1 L MCV 92 MCH 30.4 MCHC 32.9 RDW 14.4 H Plt Count 196 Seg Neutrophils % 75.7 Lymphocytes % 16.7 Monocytes % 5.4 Eosinophils % 1.3 Basophils % 0.9 Absolute Neutrophils 9.0 H Absolute Lymphocytes 2.0 Absolute Monocytes 0.6 Absolute Eosinophils 0.1 Absolute Basophils 0.1 Sodium 136.3 L Potassium 4.5 Chloride 98 Carbon Dioxide 27 Anion Gap 11 BUN 20 Creatinine 0.94 Est GFR ( Amer) > 60 Est GFR (Non-Af Amer) 58 L Glucose 157 H Lactic Acid 2.2 H Calcium 9.2 Total Bilirubin 0.5 Direct Bilirubin 0.4 Neonat Total Bilirubin Not Reportable Neonat Direct Bilirubin Not Reportable Neonat Indirect Bili Not Reportable AST 21 ALT 6 L Alkaline Phosphatase 96 Troponin I NT-Pro-B Natriuret Pep Total Protein 7.1 Albumin 4.2 02/04/19 17:58 WBC RBC Hgb Hct MCV MCH MCHC RDW Plt Count Seg Neutrophils % Lymphocytes % Monocytes % Eosinophils % Basophils % Absolute Neutrophils Absolute Lymphocytes Absolute Monocytes Absolute Eosinophils Absolute Basophils Sodium Potassium Chloride Carbon Dioxide Anion Gap BUN Creatinine Est GFR ( Amer) Est GFR (Non-Af Amer) Glucose Lactic Acid Calcium Total Bilirubin Direct Bilirubin Neonat Total Bilirubin Neonat Direct Bilirubin Neonat Indirect Bili AST ALT Alkaline Phosphatase Troponin I < 0.012 NT-Pro-B Natriuret Pep 1050 H Total Protein Albumin Chest X-Ray 02/04/19 17:54 IMPRESSION: NO ACUTE RADIOGRAPHIC FINDING IN THE CHEST. - Vital Signs Vital signs: Temp Pulse Resp BP Pulse Ox 97.7 F 74 22 H 135/87 H 94 02/04/19 19:51 02/04/19 17:37 02/04/19 20:01 02/04/19 20:01 02/04/19 20:01 - Laboratory Result Diagrams: 02/04/19 17:58 02/04/19 17:58 Laboratory results interpreted by me: 02/04/19 02/04/19 02/04/19 17:58 17:58 17:58 WBC 11.9 H RBC 3.69 L Hgb 11.2 L Hct 34.1 L RDW 14.4 H Absolute Neutrophils 9.0 H Sodium 136.3 L Est GFR (Non-Af Amer) 58 L Glucose 157 H Lactic Acid 2.2 H ALT 6 L NT-Pro-B Natriuret Pep 02/04/19 17:58 WBC RBC Hgb Hct RDW Absolute Neutrophils Sodium Est GFR (Non-Af Amer) Glucose Lactic Acid ALT NT-Pro-B Natriuret Pep 1050 H Critical Care Note - Critical Care Note Total time excluding time spent on procedures (mins): 38 Comments: Critical care time 38 minutes exclusive from separate billable procedures for a patient requiring complex medical decision making, and high potential for clinical deterioration. In a patient requiring noninvasive positive pressure ventilation for acute exacerbation of her COPD. Time spent obtaining history from patient or surrogate, discussions with consultants, development of susana atment plan with patient or surrogate, evaluation of patient's response to treatment, examination of patient, ordering and performing treatments and interventions, ordering and review of laboratory studies, re-evaluation of patient's condition, ordering and review of radiographic studies and review of old charts Discharge - Discharge Clinical Impression: Acute exacerbation of chronic obstructive pulmonary disease (COPD) Pneumonia Qualifiers: Pneumonia type: due to unspecified organism Laterality: unspecified laterality Lung location: unspecified part of lung Qualified Code(s): J18.9 - Pneumonia, un specified organism Leukocytosis Qualifiers: Leukocytosis type: unspecified Qualified Code(s): D72.829 - Elevated white bloo d cell count, unspecified Condition: Stable Disposition: ADMITTED INPATIENT Admitting Provider: Hospitalist - Dr. Bartlett Unit Admitted: [facility]
[2019-02-04] MEDS ORDERED: GUAIFENESIN SYRP 200 MG/10 ML UDC PO PRN (20:04)
[2019-02-04] MEDS ORDERED: IPRATROPIUM/ALBUTEROL 0.5-2.5 MG/3 ML AMPUL NEB PRN (20:04)
[2019-02-04] MEDS ORDERED: NICOTINE 14 MG/24 HR PATCH.TD24 TD ONE (22:00)
--- NOTE | 2019-02-04 22:42 | EKG REPORT ---
SEVERITY:- ABNORMAL ECG - SINUS RHYTHM LEFT BUNDLE BRANCH BLOCK : Confirmed by: Paras Alvarado MD 04-Feb-2019 22:42:10
[2019-02-04] MEDS: ATORVASTATIN CALCIUM 10 MG TABLET PO SCH (23:49)
[2019-02-04] MEDS: FAMOTIDINE 20 MG TABLET PO SCH (23:49)
[2019-02-04] MEDS: HEPARIN SOD (PORCINE) 5,000 UNIT/ML 1 ML SYRINGE SUBCUT SCH (23:49)
[2019-02-04] MEDS: FLUTICASONE NASAL SPRAY 50 MCG/SPRY 120 SPRAY/16 GM NASL SCH (23:50)
[2019-02-05] MEDS: IPRATROPIUM/ALBUTEROL 0.5-2.5 MG/3 ML AMPUL NEB SCH ×4 (00:05→23:52)
[2019-02-05] MEDS: ACETAMINOPHEN 325 MG TABLET PO PRN (02:12)
--- NOTE | 2019-02-05 04:41 | PDOC H&P ---
History of Present Illness Admission Date/PCP: 02/04/19 20:28 KYLE NIETO MD Patient complains of: Shortness of breath History of Present Illness: GAVI PEDRO is a 73 year old female with a past medical history of a left bundle branch block, home oxygen dependent COPD, allergic sinusitis, chronic bronchitis, GERD, osteoarthritis obstructive sleep apnea and noncompliance. She presents with 3 days of productive cough shortness of breath and pleuritic chest pain with coughing. She admits rhinorrhea and sinus congestion and noncompliance with BiPAP and continuing to smoke. In the emergency room she is found to have tachypnea in the 30s oxygen saturation of 90% on 2 L nasal cannula with use of accessory muscles. Lactic acid is elevated and she is referred to the hospitalist for admission. Past Medical History Cardiac Medical History: Reports: Congestive Heart Failure, Coronary Artery Disease, DVT, Hypertension Denies: Myocardial Infarction, Heart Murmur Pulmonary Medical History: Reports: Asthma, Chronic Obstructive Pulmonary Disease (COPD), Pneumonia Denies: Bronchitis, Respiratory Failure, Sleep Apnea, Tuberculosis Neurological Medical History: Denies: Seizures Endocrine Medical History: Reports: Diabetes Mellitus Type 2 GI Medical History: Reports: Diverticulitis, Gastroesophageal Reflux Disease Denies: Hepatitis, Hiatal Hernia Musculoskeltal Medical History: Reports: Arthritis Psychiatric Medical History: Denies: Depression Hematology: Reports: Anemia - TAKE IRON SOMETIMES Denies: Hemophilia, Sickle Cell Disease Past Surgical History Past Surgical History: Reports: Appendectomy, Cholecystectomy, Herniorrhaphy, Hysterectomy, Orthopedic Surgery - rotator cuff Denies: Amputation, Mastectomy, Pacemaker Social History Information Source: Patient Smoking Status: Current Every Day Smoker Cigarettes Packs Per Day: 1 Frequency of Alcohol Use: None Hx Recreational Drug Use: No Drugs: None Hx Prescription Drug Abuse: No - Advance Directive Resuscitation Status: Full Code Family History Family History: COPD, Hypertension Parental Family History Reviewed: Yes Children Family History Reviewed: Yes Sibling(s) Family History Reviewed.: Yes Medication/Allergy Home Medications: Albuterol Sulfate [Proair HFA Inhalation Aerosol 8.5 gm MDI] 1 puff IH Q6HP PRN 07/09/18 Metformin HCl [Glucophage 500 mg Tablet] 500 mg PO BID 07/09/18 Aspirin [Aspirin EC] 81 mg PO DAILY 08/26/18 Gabapentin [Neurontin 300 mg Capsule] 400 mg PO BID 08/26/18 Lisinopril [Prinivil 5 mg Tablet] 5 mg PO DAILY tablet 08/30/18 Atorvastatin Calcium [Lipitor 10 mg Tablet] 10 mg PO QHS 02/04/19 Dexlansoprazole [Dexilant 60 mg Capsule] 60 mg PO DAILY 02/04/19 Fluticasone/Umeclidin/Vilanter [Trelegy 100-62.5-25 Mcg Ellipta 14 Dose/Dpi] 1 each IN DAILY 02/04/19 Hydrocodone/Acetaminophen [[place] 5-325 mg Tablet] 1 tab PO BID 02/04/19 Allergies/Adverse Reactions: ibuprofen [From Motrin] Allergy (Intermediate, Verified 02/04/19 17:23) RASH/UTICARTIA Review of Systems Constitutional: ABSENT: chills, fever(s), headache(s), weight gain, weight loss Eyes: ABSENT: visual disturbances Ears: ABSENT: hearing changes Cardiovascular: ABSENT: chest pain, dyspnea on exertion, edema, orthropnea, palpitations Respiratory: ABSENT: cough, hemoptysis Gastrointestinal: ABSENT: abdominal pain, constipation, diarrhea, hematemesis, hematochezia, nausea, vomiting Genitourinary: ABSENT: dysuria, hematuria Musculoskeletal: ABSENT: joint swelling Integumentary: ABSENT: rash, wounds Neurological: ABSENT: abnormal gait, abnormal speech, confusion, dizziness, focal weakness, syncope Psychiatric: ABSENT: anxiety, depression, homidical ideation, suicidal ideation Endocrine: ABSENT: cold intolerance, heat intolerance, polydipsia, polyuria Hematologic/Lymphatic: ABSENT: easy bleeding, easy bruising Physical Exam Vital Signs: Temp Pulse Resp BP Pulse Ox 98.2 F 78 20 139/57 H 92 02/05/19 00:00 02/05/19 00:00 02/05/19 00:00 02/05/19 00:00 02/05/19 00:00 Intake & Output 02/03/19 02/04/19 02/05/19 11:59 11:59 11:59 Intake Total 1050 Balance 1050 Weight 79.5 kg General appearance: PRESENT: cooperative, mild distress, obese, well-developed, well-nourished Head exam: PRESENT: atraumatic, normocephalic Eye exam: PRESENT: conjunctiva pink, EOMI, PERRLA. ABSENT: scleral icterus Ear exam: PRESENT: normal external ear exam Mouth exam: PRESENT: moist, tongue midline Neck exam: ABSENT: carotid bruit, JVD, lymphadenopathy, thyromegaly Respiratory exam: PRESENT: accessory muscle use, crackles, prolonged expiratory phas, symmetrical, tachypnea. ABSENT: rhonchi, stridor Cardiovascular exam: PRESENT: RRR. ABSENT: diastolic murmur, rubs, systolic murmur Pulses: PRESENT: normal dorsalis pedis pul Vascular exam: PRESENT: normal capillary refill GI/Abdominal exam: PRESENT: normal bowel sounds, soft. ABSENT: distended, guarding, mass, organolmegaly, rebound, tenderness Rectal exam: PRESENT: deferred Extremities exam: PRESENT: full ROM. ABSENT: calf tenderness, clubbing, pedal edema Neurological exam: PRESENT: alert, awake, oriented to person, oriented to place, oriented to time, oriented to situation, CN II-XII grossly intact. ABSENT: motor sensory deficit Psychiatric exam: PRESENT: appropriate affect, normal mood. ABSENT: homicidal ideation, suicidal ideation Skin exam: PRESENT: dry, intact, warm. ABSENT: cyanosis, rash Results Laboratory Results: 02/04/19 17:58 02/04/19 17:58 02/04/19 02/04/19 02/04/19 17:58 17:58 17:58 WBC 11.9 H RBC 3.69 L Hgb 11.2 L Hct 34.1 L MCV 92 MCH 30.4 MCHC 32.9 RDW 14.4 H Plt Count 196 Seg Neutrophils % 75.7 Lymphocytes % 16.7 Monocytes % 5.4 Eosinophils % 1.3 Basophils % 0.9 Absolute Neutrophils 9.0 H Absolute Lymphocytes 2.0 Absolute Monocytes 0.6 Absolute Eosinophils 0.1 Absolute Basophils 0.1 Sodium 136.3 L Potassium 4.5 Chloride 98 Carbon Dioxide 27 Anion Gap 11 BUN 20 Creatinine 0.94 Est GFR ( Amer) > 60 Est GFR (Non-Af Amer) 58 L Glucose 157 H Lactic Acid 2.2 H Calcium 9.2 Total Bilirubin 0.5 AST 21 ALT 6 L Alkaline Phosphatase 96 Total Protein 7.1 Albumin 4.2 02/04/19 22:25 WBC RBC Hgb Hct MCV MCH MCHC RDW Plt Count Seg Neutrophils % Lymphocytes % Monocytes % Eosinophils % Basophils % Absolute Neutrophils Absolute Lymphocytes Absolute Monocytes Absolute Eosinophils Absolute Basophils Sodium Potassium Chloride Carbon Dioxide Anion Gap BUN Creatinine Est GFR ( Amer) Est GFR (Non-Af Amer) Glucose Lactic Acid 3.2 H Calcium Total Bilirubin AST ALT Alkaline Phosphatase Total Protein Albumin 02/04/19 17:58 Troponin I < 0.012 NT-Pro-B Natriuret Pep 1050 H Impressions: Chest X-Ray 02/04/19 17:54 IMPRESSION: NO ACUTE RADIOGRAPHIC FINDING IN THE CHEST. Assessment & Plan - Diagnosis (1) Acute exacerbation of chronic bronchitis Is this a current diagnosis for this admission?: Yes Plan: Likely secondary to acute allergic sinusitis complicated by noncompliance with tobacco. Empiric antibiotic, prednisone, albuterol, Atrovent, Flonase. Aggressive pulmonary toilet. (2) Allergic sinusitis Is this a current diagnosis for this admission?: Yes Plan: Chlorpheniramine and Flonase (3) Tobacco dependence Is this a current diagnosis for this admission?: Yes Plan: Tobacco Dependence patient received tobacco cessation counseling and offered nicotine replacement options - Time Time Spent: 30 to 50 Minutes
[2019-02-05 05:19] LABS: ABSOLUTE LYMPHOCYTES (AUTO) 0.5 10^3/uL (0.5-4.7); ABSOLUTE MONOCYTES (AUTO) 0.1 10^3/uL (0.1-1.4); ABSOLUTE NEUT (AUTO) 9.2 10^3/uL (1.7-8.2); BASOPHILS % (AUTO) 0.2 % (0-2); HEMATOCRIT 31.1 % (36.0-47.0); HEMOGLOBIN 10.4 g/dL (12.0-15.5); LYMPHOCYTES % (AUTO) 5.2 % (13-45); MEAN CORPUSCULAR HEMOGLOBIN 30.6 pg (27.0-33.4); MEAN CORPUSCULAR HGB CONC 33.4 g/dL (32.0-36.0); MEAN CORPUSCULAR VOLUME 92 fl (80-97); MONOCYTES % (AUTO) 0.9 % (3-13); PLATELET COUNT 139 10^3/uL (150-450); RED CELL DISTRIBUTION WIDTH 14.1 % (11.5-14.0); SEGMENTED NEUTROPHILS % (AUTO) 93.7 % (42-78); TOTAL CELLS COUNTED % (AUTO) 100 %; WHITE BLOOD COUNT 9.8 10^3/uL (4.0-10.5)
[2019-02-05 05:41] LABS: ANION GAP 11 (5-19); BLOOD UREA NITROGEN 19 mg/dL (7-20); CALCIUM 8.8 mg/dL (8.4-10.2); CARBON DIOXIDE 24 mmol/L (22-30); CHLORIDE 103 mmol/L (98-107); GLUCOSE 188 mg/dL (75-110); POTASSIUM 4.8 mmol/L (3.6-5.0); SODIUM 137.6 mmol/L (137-145)
[2019-02-05] MEDS: PANTOPRAZOLE SODIUM 40 MG TABLET.DR PO SCH (07:08)
[2019-02-05] MEDS: HEPARIN SOD (PORCINE) 5,000 UNIT/ML 1 ML SYRINGE SUBCUT SCH ×4 (07:08→21:40)
[2019-02-05] MEDS: FLUTICASONE NASAL SPRAY 50 MCG/SPRY 120 SPRAY/16 GM NASL SCH ×2 (09:37→21:46)
[2019-02-05] MEDS: FAMOTIDINE 20 MG TABLET PO SCH ×2 (09:38→21:40)
[2019-02-05] MEDS: PREDNISONE 20 MG TABLET PO SCH ×2 (09:39→17:26)
[2019-02-05] MEDS: ASPIRIN 81 MG TABLET, ENT COATED PO SCH (09:39)
[2019-02-05] MEDS: HYDROCODONE/ACETAMINOPHEN 5-325 MG TABLET PO SCH ×2 (09:39→17:26)
[2019-02-05] MEDS: NICOTINE 14 MG/24 HR PATCH.TD24 TD SCH (09:39)
[2019-02-05] MEDS: LISINOPRIL 5 MG TABLET PO SCH (09:39)
[2019-02-05] MEDS: AZITHROMYCIN 500 MG in DEXTROSE 5%-WATER 250 ML IV SCH (09:40)
[2019-02-05] MEDS ORDERED: GABAPENTIN 300 MG CAPSULE PO SCH (10:00)
[2019-02-05] MEDS: GABAPENTIN 400 MG CAPSULE PO SCH ×2 (14:34→17:20)
[2019-02-05] MEDS ORDERED: GLUCAGON,HUMAN RECOMB 1 MG INJ IM PRN (16:38)
[2019-02-05] MEDS ORDERED: DEXTROSE 50%-WATER 25 GM/50 ML DISP.SYRIN IV PRN ×2 (16:38)
[2019-02-05] MEDS ORDERED: DEXTROSE 40% GEL 15 GM TUBE PO PRN ×2 (16:38)
--- NOTE | 2019-02-05 16:40 | PDOC PROGRESS REPORT ---
Subjective Progress Note for:: 02/05/19 Subjective:: GAVI PEDOR is a 73 year old female with a past medical history of a left bundle branch block, home oxygen dependent COPD, allergic sinusitis, chronic bronchitis, GERD, osteoarthritis obstructive sleep apnea and noncompliance who was admitted 02/04/19 for acute on chronic respiratory failure secondary to acute on chronic COPD exacerbation. The patient is seen on morning rounds. She is found resting in bed comfortably on supplemental oxygen by nasal cannula. She reports that she is improved today though continues to have shortness of breath, productive cough, and chest wall pain with deep inspiration and cough. She reports she has home O2, home BiPAP machine, home nebulizer machine, and has established care with Dr. Louis. She does admit to intermittent noncompliance with her BiPAP machine and continued tobacco use (>1/2 ppd). She denies fever, chills, typical chest pain, orthopnea, abdominal pain, nausea vomiting and diarrhea. She has no other questions or concerns today. No concerns per nursing. Reason For Visit: COPD EXACERBATION URI Physical Exam Vital Signs: Temp Pulse Resp BP Pulse Ox 97.7 F 57 L 15 142/62 H 96 02/05/19 11:37 02/05/19 11:37 02/05/19 11:37 02/05/19 11:37 02/05/19 11:37 Intake & Output 02/04/19 02/05/19 02/06/19 06:59 06:59 06:59 Intake Total 1511 250 Balance 1511 250 Weight 79.1 kg General appearance: PRESENT: no acute distress, cooperative, disheveled, well- developed, well-nourished Head exam: PRESENT: atraumatic, normocephalic Eye exam: PRESENT: conjunctiva pink, EOMI, PERRLA. ABSENT: scleral icterus Mouth exam: PRESENT: moist, tongue midline Teeth exam: PRESENT: poor dentation Neck exam: ABSENT: carotid bruit, JVD, lymphadenopathy, thyromegaly Respiratory exam: PRESENT: prolonged expiratory phas, rhonchi, symmetrical, unlabored, other - Supplemental oxygen via nasal cannula. ABSENT: rales, wh eezes Cardiovascular exam: PRESENT: RRR. ABSENT: diastolic murmur, rubs, systolic murmur Pulses: PRESENT: normal dorsalis pedis pul Vascular exam: PRESENT: normal capillary refill GI/Abdominal exam: PRESENT: normal bowel sounds, soft. ABSENT: distended, guarding, mass, organolmegaly, rebound, tenderness Rectal exam: PRESENT: deferred Extremities exam: PRESENT: full ROM. ABSENT: calf tenderness, clubbing, pedal edema Neurological exam: PRESENT: alert, awake, oriented to person, oriented to place, oriented to time, oriented to situation, CN II-XII grossly intact. ABSENT: motor sensory deficit Psychiatric exam: PRESENT: appropriate affect, normal mood. ABSENT: homicidal ideation, suicidal ideation Skin exam: PRESENT: dry, intact, warm. ABSENT: cyanosis, rash Results Laboratory Results: 02/05/19 04:18 02/05/19 04:18 02/04/19 02/04/19 02/04/19 17:58 17:58 17:58 WBC 11.9 H RBC 3.69 L Hgb 11.2 L Hct 34.1 L MCV 92 MCH 30.4 MCHC 32.9 RDW 14.4 H Plt Count 196 Seg Neutrophils % 75.7 Lymphocytes % 16.7 Monocytes % 5.4 Eosinophils % 1.3 Basophils % 0.9 Absolute Neutrophils 9.0 H Absolute Lymphocytes 2.0 Absolute Monocytes 0.6 Absolute Eosinophils 0.1 Absolute Basophils 0.1 Sodium 136.3 L Potassium 4.5 Chloride 98 Carbon Dioxide 27 Anion Gap 11 BUN 20 Creatinine 0.94 Est GFR ( Amer) > 60 Est GFR (Non-Af Amer) 58 L Glucose 157 H Lactic Acid 2.2 H Calcium 9.2 Total Bilirubin 0.5 AST 21 ALT 6 L Alkaline Phosphatase 96 Total Protein 7.1 Albumin 4.2 02/04/19 02/05/19 02/05/19 22:25 04:18 04:18 WBC 9.8 RBC 3.40 L Hgb 10.4 L Hct 31.1 L MCV 92 MCH 30.6 MCHC 33.4 RDW 14.1 H Plt Count 139 L Seg Neutrophils % 93.7 H Lymphocytes % 5.2 L Monocytes % 0.9 L Eosinophils % 0.0 Basophils % 0.2 Absolute Neutrophils 9.2 H Absolute Lymphocytes 0.5 Absolute Monocytes 0.1 Absolute Eosinophils 0.0 Absolute Basophils 0.0 Sodium 137.6 Potassium 4.8 Chloride 103 Carbon Dioxide 24 Anion Gap 11 BUN 19 Creatinine 0.93 Est GFR ( Amer) > 60 Est GFR (Non-Af Amer) 59 L Glucose 188 H Lactic Acid 3.2 H Calcium 8.8 Total Bilirubin AST ALT Alkaline Phosphatase Total Protein Albumin 02/05/19 11:33 WBC RBC Hgb Hct MCV MCH MCHC RDW Plt Count Seg Neutrophils % Lymphocytes % Monocytes % Eosinophils % Basophils % Absolute Neutrophils Absolute Lymphocytes Absolute Monocytes Absolute Eosinophils Absolute Basophils Sodium Potassium Chloride Carbon Dioxide Anion Gap BUN Creatinine Est GFR ( Amer) Est GFR (Non-Af Amer) Glucose Lactic Acid 1.6 Calcium Total Bilirubin AST ALT Alkaline Phosphatase Total Protein Albumin 02/04/19 17:58 Troponin I < 0.012 NT-Pro-B Natriuret Pep 1050 H Impressions: Chest X-Ray 02/04/19 17:54 IMPRESSION: NO ACUTE RADIOGRAPHIC FINDING IN THE CHEST. Assessment & Plan - Diagnosis (1) Acute and chronic respiratory failure with hypoxia Is this a current diagnosis for this admission?: Yes Plan: Patient with acute on chronic respiratory failure secondary to acute COPD exacerbation; evidenced by tachypnea (respiratory rate 30) and requirement of BiPAP in the emergency department to maintain oxygen saturations above 90%. The patient is admitted to the medical floor on continuous cardiac telemetry. She is provided supplemental oxygen and BiPAP as needed to maintain oxygen saturations >89%. She is provided scheduled and as needed nebulizer treatments. She is empirically been placed on IV azithromycin for treatment of her chronic bronchitis exacerbation. She received IV Solu-Medrol in the emergency department; will continue p.o. prednisone. Mucinex twice daily. Incentive spirometer and flutter valve to bedside. (2) COPD (chronic obstructive pulmonary disease) Qualifiers: COPD type: chronic bronchitis Chronic bronchitis type: unspecified Qualified Code(s): J42 - Unspecified chronic bronchitis Is this a current diagnosis for this admission?: Yes Plan: Management as above. (3) Allergic sinusitis Is this a current diagnosis for this admission?: Yes Plan: Patient is provided chlorpheniramine and Flonase. (4) Tobacco dependence Is this a current diagnosis for this admission?: Yes Plan: Smoking cessation is strongly encouraged; nicotine or placement therapies are provided. (5) CAD (coronary artery disease) Qualifiers: Coronary Disease-Associated Artery/Lesion type: [place] artery [place] vs. transplanted heart: [place] heart Associated angina: without angina Qualified Code(s): I25.10 - Atherosclerotic heart disease of [place] coronary artery without angina pectoris Is this a current diagnosis for this admission?: No Plan: The patient's home medication regiment of daily aspirin 81 mg, atorvastatin 10 mg nightly, and lisinopril 5 mg daily are continued. Cardiac diet. Telemetry monitoring. (6) Diabetes Qualifiers: Diabetes mellitus type: type 2 Diabetes mellitus correction insulin use: without fire extinguisher charger use Is this a current diagnosis for this admission?: Yes Plan: The patient is placed on a consistent carb diet. Metformin held while admitted. Accu-Cheks before meals and at bedtime with Humalog for sliding scale coverage. Hypoglycemia protocol in place - Time Time Spent with patient: 15-24 minutes Medications reviewed and adjusted accordingly: Yes Anticipated discharge: Home Within: within 48 hours - Inpatient Certification Based on my medical assessment, after consideration of the patient's comorbidities, presenting symptoms, or acuity I expect that the services needed warrant INPATIENT care.: Yes I certify that my determination is in accordance with my understanding of Medicare's requirements for reasonable and necessary INPATIENT services [42 CFR 412.3e].: Yes Medical Necessity: Need Close Monitoring Due to Risk of Patient Decompensation, Need for Neurological Checks
[2019-02-05] MEDS: ATORVASTATIN CALCIUM 10 MG TABLET PO SCH (21:40)
[2019-02-05] MEDS: GUAIFENESIN 600 MG TABLET.SA PO SCH (21:40)
[2019-02-05] MEDS: INSULIN LISPRO 100 UNIT/ML 3 ML VIAL SUBCUT SCH (21:46)
[2019-02-06] MEDS: ACETAMINOPHEN 325 MG TABLET PO PRN (01:55)
[2019-02-06 05:54] LABS: HEMATOCRIT 30.1 % (36.0-47.0); MEAN CORPUSCULAR HEMOGLOBIN 30.4 pg (27.0-33.4); MEAN CORPUSCULAR HGB CONC 33.4 g/dL (32.0-36.0); MEAN CORPUSCULAR VOLUME 91 fl (80-97); PLATELET COUNT 152 10^3/uL (150-450); RED CELL DISTRIBUTION WIDTH 14.2 % (11.5-14.0); WHITE BLOOD COUNT 12.1 10^3/uL (4.0-10.5)
[2019-02-06] MEDS: HEPARIN SOD (PORCINE) 5,000 UNIT/ML 1 ML SYRINGE SUBCUT SCH ×2 (06:07→13:15)
[2019-02-06] MEDS: PANTOPRAZOLE SODIUM 40 MG TABLET.DR PO SCH (06:08)
[2019-02-06 06:17] LABS: ANION GAP 6 (5-19); BLOOD UREA NITROGEN 24 mg/dL (7-20); CALCIUM 9.5 mg/dL (8.4-10.2); CARBON DIOXIDE 29 mmol/L (22-30); CHLORIDE 100 mmol/L (98-107); GLUCOSE 133 mg/dL (75-110); POTASSIUM 5.1 mmol/L (3.6-5.0); SODIUM 134.9 mmol/L (137-145)
[2019-02-06] MEDS: IPRATROPIUM/ALBUTEROL 0.5-2.5 MG/3 ML AMPUL NEB SCH (07:31)
[2019-02-06] MEDS: INSULIN LISPRO 100 UNIT/ML 3 ML VIAL SUBCUT SCH ×2 (08:55→13:13)
[2019-02-06] MEDS: HYDROCODONE/ACETAMINOPHEN 5-325 MG TABLET PO SCH (09:16)
[2019-02-06] MEDS: LISINOPRIL 5 MG TABLET PO SCH (09:16)
[2019-02-06] MEDS: GABAPENTIN 400 MG CAPSULE PO SCH (09:16)
[2019-02-06] MEDS: ASPIRIN 81 MG TABLET, ENT COATED PO SCH (09:16)
[2019-02-06] MEDS: PREDNISONE 20 MG TABLET PO SCH (09:16)
[2019-02-06] MEDS: AZITHROMYCIN 500 MG in DEXTROSE 5%-WATER 250 ML IV SCH (09:16)
[2019-02-06] MEDS: NICOTINE 14 MG/24 HR PATCH.TD24 TD SCH (09:16)
[2019-02-06] MEDS: FAMOTIDINE 20 MG TABLET PO SCH (09:16)
[2019-02-06] MEDS: GUAIFENESIN 600 MG TABLET.SA PO SCH (09:16)
[2019-02-06] MEDS: FLUTICASONE/UMECLIDIN/VILANTER 100-62.5-25 MCG/DOSE IH SCH ×2 (10:45→10:46)
[2019-02-06] MEDS: FLUTICASONE NASAL SPRAY 50 MCG/SPRY 120 SPRAY/16 GM NASL SCH (10:46)
[2019-02-06 12:35] VITALS: BP 147/55
--- NOTE | 2019-02-07 14:03 | PDOC DISCHARGE SUMMARY ---
General - Admit/Disc Date/PCP Admission Date/Primary Care Provider: 02/05/19 16:40 KYLE NIETO MD Discharge Date: 02/06/19 - Discharge Diagnosis (1) Acute and chronic respiratory failure with hypoxia Is this a current diagnosis for this admission?: Yes Summary: Acute exacerbation has resolved; now with clear lung sounds, maintaining saturations on her baseline oxygen requirement, and ambulatory without dyspnea. Secondary to acute COPD exacerbation; evidenced by tachypnea (respiratory rate 30) and requirement of BiPAP in the emergency department to maintain oxygen saturations above 90%. The patient was admitted to the medical floor on continuous cardiac telemetry. She wa provided supplemental oxygen and BiPAP as needed to maintain oxygen saturations >89%. Patient declined both BiPAP and CPAP use throughout her admission. She reports that she has CPAP at home, though admits to not using is consistently. She was provided scheduled and as needed nebulizer treatments. She was empirically placed on IV azithromycin for treatment of her chronic bronchitis exacerbation and transitioned to p.o. azithromycin at discharge to complete a full course of therapy. She received IV Solu-Medrol initially and transitioned to p.o. prednisone. Pulmonary toilet was encouraged with mucinex twice daily, Incentive spirometer and flutter valve. She was discharged to home in stable condition; at her baseline respiratory status (per patient) on her home oxygen requirement. She was provided a prescription for azithromycin and prednisone to complete course of therapy. She was strongly encouraged to STOP smoking and to use her CPAP equipment as instructed. She is advised to follow up with her primary care provider within 1 week. She is instructed to return to the emergency department as needed for concerning symptoms. (2) COPD (chronic obstructive pulmonary disease) Is this a current diagnosis for this admission?: Yes Summary: As above. (3) Allergic sinusitis Is this a current diagnosis for this admission?: Yes (4) Tobacco dependence Is this a current diagnosis for this admission?: Yes Summary: Smoking cessation was strongly encouraged. She is provided a prescription for Nicoderm patches. (5) CAD (coronary artery disease) Is this a current diagnosis for this admission?: No Summary: Continue home medication regiment of daily aspirin 81 mg, atorvastatin 10 mg nightly, and lisinopril 5 mg daily. She is advised to STOP smoking and to follow a cardiac diet. She was monitored on cardiac telemetry; no abnormal rhythms identified. Pt remained chest pain free. (6) Diabetes Is this a current diagnosis for this admission?: Yes Summary: Continue a consistent carb diet. Metformin held while in patient and patient was provided sliding scale insulin as needed. Resume outpatient medication regiment on discharge. - Additional Information Resuscitation Status: Full Code Prescriptions: Azithromycin [Zithromax 250 mg Tablet] 250 mg PO DAILY #4 tablet Guaifenesin [Mucinex Sr 600 mg Tablet.sa] 600 mg PO Q12 #14 tablet.sa Nicotine [Nicoderm 14 mg/24 Hr Transdermal Patch] 1 each TD DAILY #30 patch.td24 Prednisone [Deltasone 20 mg Tablet] 20 mg PO BID #8 tablet Home Medications: Metformin HCl [Glucophage 500 mg Tablet] 500 mg PO BID 07/09/18 Aspirin [Aspirin EC] 81 mg PO DAILY 08/26/18 Lisinopril [Prinivil 5 mg Tablet] 5 mg PO DAILY tablet 08/30/18 Atorvastatin Calcium [Lipitor 10 mg Tablet] 10 mg PO QHS 02/04/19 Fluticasone/Umeclidin/Vilanter [Trelegy 100-62.5-25 Mcg Ellipta 14 Dose/Dpi] 1 each IN DAILY 02/04/19 Hydrocodone/Acetaminophen [[place] 5-325 mg Tablet] 1 tab PO BID 02/04/19 Budesonide/Formoterol Fumarate [Symbicort HFA 160-4.5 mcg Inhaler 6 gm] 2 puff IH Q12 02/05/19 Gabapentin [Neurontin 400 mg Capsule] 400 mg PO Q12 02/05/19 Acetaminophen [Tylenol 325 mg Tablet] 650 mg PO Q6HP PRN tablet 02/06/19 Azithromycin [Zithromax 250 mg Tablet] 250 mg PO DAILY #4 tablet 02/06/19 Gabapentin [Neurontin 400 mg Capsule] 400 mg PO BID capsule 02/06/19 Guaifenesin [Mucinex Sr 600 mg Tablet.sa] 600 mg PO Q12 #14 tablet.sa 02/06/19 Nicotine [Nicoderm 14 mg/24 Hr Transdermal Patch] 1 each TD DAILY #30 patch.td24 02/06/19 Prednisone [Deltasone 20 mg Tablet] 20 mg PO BID #8 tablet 02/06/19 History of Present Illness History of Present Illness: Per H&P by Dr. Bartlett: GAVI PEDRO is a 73 year old female with a past medical history of a left bundle branch block, home oxygen dependent COPD, allergic sinusitis, chronic bronchitis, GERD, osteoarthritis obstructive sleep apnea and noncompliance. She presents with 3 days of productive cough shortness of breath and pleuritic chest pain with coughing. She admits rhinorrhea and sinus congestion and noncompliance with BiPAP and continuing to smoke. In the emergency room she is found to have tachypnea in the 30s oxygen saturation of 90% on 2 L nasal cannula with use of accessory muscles. Lactic acid is elevated and she is referred to the hospitalist for admission. Physical Exam Vital Signs: Temp Pulse Resp BP Pulse Ox 97.5 F 78 17 144/62 H 96 02/06/19 07:54 02/06/19 07:54 02/06/19 07:54 02/06/19 07:54 02/06/19 07:54 Intake & Output 02/05/19 02/06/19 02/07/19 06:59 06:59 06:59 Intake Total 1511 1661 250 Balance 1511 1661 250 Weight 79.1 kg 81.2 kg General appearance: PRESENT: no acute distress, well-developed, well-nourished Head exam: PRESENT: atraumatic, normocephalic Eye exam: PRESENT: conjunctiva pink, EOMI, PERRLA. ABSENT: scleral icterus Mouth exam: PRESENT: moist, tongue midline Teeth exam: PRESENT: poor dentation Neck exam: ABSENT: carotid bruit, JVD, lymphadenopathy, thyromegaly Respiratory exam: PRESENT: clear to auscultation chago, prolonged expiratory phas, symmetrical, unlabored, other - baseline O2 requirement. ABSENT: rales, rhonchi, wheezes Cardiovascular exam: PRESENT: RRR. ABSENT: diastolic murmur, rubs, systolic murmur Pulses: PRESENT: normal dorsalis pedis pul Vascular exam: PRESENT: normal capillary refill GI/Abdominal exam: PRESENT: normal bowel sounds, soft. ABSENT: distended, guarding, mass, organolmegaly, rebound, tenderness Rectal exam: PRESENT: deferred Extremities exam: PRESENT: full ROM. ABSENT: calf tenderness, clubbing, pedal edema Neurological exam: PRESENT: alert, awake, oriented to person, oriented to place, oriented to time, oriented to situation, CN II-XII grossly intact. ABSENT: motor sensory deficit Psychiatric exam: PRESENT: appropriate affect, normal mood. ABSENT: homicidal ideation, suicidal ideation Skin exam: PRESENT: dry, intact, warm. ABSENT: cyanosis, rash Results Laboratory Results: 02/06/19 05:06 02/06/19 05:06 02/05/19 02/06/19 02/06/19 11:33 05:06 05:06 WBC 12.1 H RBC 3.30 L Hgb 10.0 L Hct 30.1 L MCV 91 MCH 30.4 MCHC 33.4 RDW 14.2 H Plt Count 152 Sodium 134.9 L Potassium 5.1 H Chloride 100 Carbon Dioxide 29 Anion Gap 6 BUN 24 H Creatinine 1.04 Est GFR ( Amer) > 60 Est GFR (Non-Af Amer) 52 L Glucose 133 H Lactic Acid 1.6 Calcium 9.5 02/04/19 17:58 Troponin I < 0.012 NT-Pro-B Natriuret Pep 1050 H Impressions: Chest X-Ray 02/04/19 17:54 IMPRESSION: NO ACUTE RADIOGRAPHIC FINDING IN THE CHEST. Qualifiers - * PATIENT BEING DISCHARGED WITH ANY OF THE FOLLOWING DIAGNOSIS: No Plan Discharge Plan: The patient is discharged to home on p.o. azithromycin and prednisone. She is instructed to STOP smoking. Follow up with PCP within 1 week. Return to the Emergency department as needed. Time Spent: Less than 30 Minutes
== END 2019-02-06 14:21 | disposition home health service (06) | DRG 190 ==
LOC: ER 17:22 → EH 20:28 → 5 21:28 → OBSVTOIN 02-05 16:40
PROVIDERS: ADMIT Internal Medicine; ATTEND Internal Medicine
PROC: 3E0F3GC Introduction of Other Therapeutic Substance into Respiratory Tract, Percutaneous Approach (ICD-10-PCS; principal; 2019-02-05)
DX: J44.1 Chronic obstructive pulmonary disease with (acute) exacerbation (principal); J96.21 Acute and chronic respiratory failure with hypoxia; Z99.81 Dependence on supplemental oxygen; E11.9 Type 2 diabetes mellitus without complications; I44.7 Left bundle-branch block, unspecified; D64.9 Anemia, unspecified; E66.9 Obesity, unspecified; I25.10 Atherosclerotic heart disease of native coronary artery without angina pectoris; K21.9 Gastro-esophageal reflux disease without esophagitis; G47.33 Obstructive sleep apnea (adult) (pediatric); I10 Essential (primary) hypertension; J30.9 Allergic rhinitis, unspecified; M19.90 Unspecified osteoarthritis, unspecified site; F17.210 Nicotine dependence, cigarettes, uncomplicated; Z91.19 Patient's noncompliance with other medical treatment and regimen; Z79.84 Long term (current) use of oral hypoglycemic drugs; Z79.82 Long term (current) use of aspirin; Z79.51 Long term (current) use of inhaled steroids; Z79.52 Long term (current) use of systemic steroids; Z86.718 Personal history of other venous thrombosis and embolism; Z83.6 Family history of other diseases of the respiratory system; Z82.49 Family history of ischemic heart disease and other diseases of the circulatory system; Z71.6 Tobacco abuse counseling
CPT/HCPCS: 36415; 71046; 80048; 80053; 82962; 83605; 83880; 84484; 85025; 85027; 87040; 93005; 93010; 94640; 94667; 94668; 94799; 96365; 96367; 96375; 99291; G0378; J0456; J0696; J1644; J1815; J2930; J3490; J7030; J7060; J7512; J7620

== ENCOUNTER → 2019-02-27 | Outpatient (CLI) | payer MEDICARE ==
--- NOTE | 2019-02-27 14:51 | RADIOLOGY REPORT (SQ) ---
EXAM DESCRIPTION: CT CHEST WITHOUT COMPLETED DATE/TIME: 02/27/2019 2:23 pm REASON FOR STUDY: SOLITARY PULMONARY NODULE R91.1 SOLITARY PULMONARY NODULE COMPARISON: 07/04/2018 TECHNIQUE: CT scan performed of the chest without intravenous contrast. Images reviewed with lung, soft tissue and bone windows. Reconstructed coronal and sagittal MPR images reviewed. All images st ored on PACS. All CT scanners at this facility use dose modulation, iterative reconstruction, and/or weight based d osing when appropriate to reduce radiation dose to as low as reasonably achievable (ALARA). [facility]: Dose Right [facility]: CareDose [facility]: Dose Right [facility]: Teradose 4D [facility]: [employer] RADIATION DOSE: CT Rad equipment meets quality standard of care and radiation dose reduction techniq ues were employed. CTDIvol: 15.4 mGy. DLP: 574 mGy-cm. mGy. LIMITATIONS: No technical limitations. FINDINGS: LUNGS AND PLEURA: Stable 9 mm right upper lobe pulmonary nodule. Stable 3 mm subpleural n odule on the right on image 46. Stable 3 mm right lower lobe pulmonary nodule on image 59. Emphysem atous blebs on the left. No infiltrate or effusion. No new nodules or masses. HILAR AND MEDIASTINAL STRUCTURES: Mild stable mediastinal adenopathy. HEART AND VASCULAR STRUCTURES: No aneurysm. No pericardial effusion. Coronary atherosclerosis. UPPER ABDOMEN: No significant findings. Limited exam. THYROID AND OTHER SOFT TISSUES: No masses. No adenopathy. BONES: No significant finding. HARDWARE: None in the chest. OTHER: No other significant findings. IMPRESSION: Stable appearance of the chest. Pulmonary nodules as described. Mild emphysematous elkin nges. Coronary atherosclerosis. Mediastinal adenopathy. TECHNICAL DOCUMENTATION: JOB ID: [id number] Quality ID # [id number]: Final reports with documentation of one or more dose reduction techniques (e.g., Au tomated exposure control, adjustment of the mA and/or kV according to patient size, use of iterative reconstruction technique) 2010 [employer]- All Rights Reserved Reading location - IP/workstation name: [email or web address]
== END ==
LOC: RAD 13:50
PROVIDERS: ATTEND Internal Medicine Critical Care Medicine
DX: R91.1 Solitary pulmonary nodule (principal); I25.10 Atherosclerotic heart disease of native coronary artery without angina pectoris; R59.0 Localized enlarged lymph nodes
CPT/HCPCS: 71250

== ENCOUNTER 2019-04-25 20:27 | Emergency (ER) | payer MEDICARE ==
[2019-04-25] MEDS ORDERED: METHYLPREDNISOLONE INJ 125 MG/2 ML SDV IV ONE (21:50)
[2019-04-25] MEDS ORDERED: IPRATROPIUM/ALBUTEROL 0.5-2.5 MG/3 ML AMPUL NEB ONE (21:50)
[2019-04-25 22:04] LABS: ABSOLUTE BASOPHILS # (AUTO) 0.1 10^3/uL (0.0-0.2); ABSOLUTE EOSINOPHILS # (AUTO) 0.2 10^3/uL (0.0-0.6); ABSOLUTE LYMPHOCYTES (AUTO) 2.4 10^3/uL (0.5-4.7); ABSOLUTE MONOCYTES (AUTO) 0.7 10^3/uL (0.1-1.4); ABSOLUTE NEUT (AUTO) 8.1 10^3/uL (1.7-8.2); BASOPHILS % (AUTO) 0.8 % (0-2); EOSINOPHILS % (AUTO) 1.7 % (0-6); HEMATOCRIT 34.8 % (36.0-47.0); HEMOGLOBIN 11.3 g/dL (12.0-15.5); LYMPHOCYTES % (AUTO) 20.6 % (13-45); MEAN CORPUSCULAR HEMOGLOBIN 30.1 pg (27.0-33.4); MEAN CORPUSCULAR HGB CONC 32.4 g/dL (32.0-36.0); MEAN CORPUSCULAR VOLUME 93 fl (80-97); MONOCYTES % (AUTO) 6.3 % (3-13); PLATELET COUNT 195 10^3/uL (150-450); RED BLOOD COUNT 3.75 10^6/uL (3.72-5.28); RED CELL DISTRIBUTION WIDTH 14.4 % (11.5-14.0); SEGMENTED NEUTROPHILS % (AUTO) 70.6 % (42-78); TOTAL CELLS COUNTED % (AUTO) 100 %; WHITE BLOOD COUNT 11.4 10^3/uL (4.0-10.5)
[2019-04-25 22:07] LABS: ALANINE AMINOTRANSFERASE 16 U/L (9-52); ALBUMIN 3.9 g/dL (3.5-5.0); ALKALINE PHOSPHATASE 96 U/L (38-126); ANION GAP 6 (5-19); ASPARTATE AMINO TRANSFERASE 21 U/L (14-36); BILIRUBIN,DIRECT 0.3 mg/dL (0.0-0.4); BILIRUBIN,TOTAL 0.3 mg/dL (0.2-1.3); BLOOD UREA NITROGEN 22 mg/dL (7-20); CALCIUM 9.2 mg/dL (8.4-10.2); CARBON DIOXIDE 33 mmol/L (22-30); CHLORIDE 103 mmol/L (98-107); GLUCOSE 120 mg/dL (75-110); POTASSIUM 4.9 mmol/L (3.6-5.0); SODIUM 142.3 mmol/L (137-145)
[2019-04-25 22:19] LABS: NT PRO BNP 782 pg/mL (5-900); TROPONIN I < 0.012 ng/mL
--- NOTE | 2019-04-25 22:21 | RADIOLOGY REPORT (SQ) ---
EXAM DESCRIPTION: XR CHEST 1 VIEW COMPLETED DATE/TME: 04/25/2019 21:49 CLINICAL HISTORY: 73 years, Female, dyspnea COMPARISON: Prior study from 02/27/2019 NUMBER OF VIEWS: One TECHNIQUE: Single frontal view of the chest was obtained portably. LIMITATIONS: None. FINDINGS: Cardiac and mediastinal contours are normal in appearance. Lungs are clear. No pleural effusion or pneumothorax. IMPRESSION: No acute disease. copyright 2010 [employer]- All Rights Reserved
[2019-04-26 01:36] LABS: APPEARANCE,URINE SLIGHTLY-CLOUDY; BILIRUBIN,URINE NEGATIVE (NEGATIVE); COLOR,URINE YELLOW; GLUCOSE, URINE 50 mg/dL (NEGATIVE); KETONES,URINE NEGATIVE (NEGATIVE); LEUKOCYTE ESTERASE,URINE NEGATIVE (NEGATIVE); NITRITE,URINE NEGATIVE (NEGATIVE); PROTEIN,URINE NEGATIVE (NEGATIVE); URINE SPECIFIC GRAVITY 1.018; UROBILINOGEN,URINE NEGATIVE mg/dL (<2.0)
[2019-04-26 02:25] LABS: VENOUS BLOOD BASE EXCESS 4.6 mmol/L; VENOUS BLOOD HCO3 31.4 mmol/L (20-32); VENOUS BLOOD PCO2 57.6 mmHg (35-63); VENOUS BLOOD PH 7.36 (7.30-7.42)
--- NOTE | 2019-04-26 02:40 | ER Document Report ---
ED General - General Chief Complaint: Respiratory Distress Stated Complaint: CHEST PAIN Time Seen by Provider: 04/25/19 21:39 Primary Care Provider: WILMAR BENSON FNP-C [Primary Care Provider] - Follow up as needed TRAVEL OUTSIDE OF THE [place] IN LAST 30 DAYS: No - HPI Notes: Patient is a 73-year-old female with a history of oxygen dependent COPD, who presents to the emergency department for evaluation of difficulty breathing. She states it "hurts all over" and cannot identify any focal pain for me. She states that she had some chest pain with coughing, but denies any current chest pain or tightness. She states that she has had some cough, nonproductive. She denies any orthopnea. She does have some dyspnea with exertion. - Related Data Allergies/Adverse Reactions: ibuprofen [From Motrin] Allergy (Intermediate, Verified 04/25/19 20:58) RASH/UTICARTIA Past Medical History - General Information source: Patient - Social History Smoking Status: Never Smoker Family History: COPD, Hypertension Patient has suicidal ideation: No Patient has homicidal ideation: No - Past Medical History Cardiac Medical History: Reports: Hx Congestive Heart Failure, Hx Coronary Artery Disease, Hx DVT, Hx Hypertension Denies: Hx Heart Attack, Hx Heart Murmur Pulmonary Medical History: Reports: Hx Asthma, Hx COPD, Hx Pneumonia Denies: Hx Bronchitis, Hx Respiratory Failure, Hx Sleep Apnea, Hx Tuberculosis Neurological Medical History: Denies: Hx Cerebrovascular Accident, Hx Seizures Endocrine Medical History: Reports: Hx Diabetes Mellitus Type 2 Renal/ Medical History: Reports: Hx Renal Insufficiency. Denies: Hx Peritoneal Dialysis GI Medical History: Reports: Hx Diverticulitis, Hx Gastroesophageal Reflux Disease. Denies: Hx Hepatitis, Hx Hiatal Hernia, Hx Pancreatitis, Hx Ulcer - ? Musculoskeletal Medical History: Reports Hx Arthritis, Denies Hx Systemic Lupus Erythematosus Psychiatric Medical History: Denies: Hx Depression Traumatic Medical History: Reports: Hx Fractures - several broken ribs Infectious Medical History: Denies: Hx Hepatitis Past Surgical History: Reports: Hx Appendectomy, Hx Cholecystectomy, Hx Herniorrhaphy, Hx Hysterectomy, Hx Orthopedic Surgery - rotator cuff. Denies: Hx Mastectomy, Hx Open Heart Surgery, Hx Pacemaker - Immunizations Immunizations up to date: Yes Hx Diphtheria, Pertussis, Tetanus Vaccination: No Hx Pneumococcal Vaccination: 08/30/14 Review of Systems - Review of Systems Constitutional: See HPI EENT: No symptoms reported Cardiovascular: No symptoms reported Respiratory: See HPI Gastrointestinal: No symptoms reported Genitourinary: No symptoms reported Musculoskeletal: No symptoms reported Skin: No symptoms reported Neurological/Psychological: No symptoms reported Physical Exam - Vital signs Vitals: Temp Pulse Resp BP Pulse Ox 98.2 F 71 24 H 150/82 H 88 L 04/25/19 21:02 04/25/19 21:02 04/25/19 21:02 04/25/19 21:02 04/25/19 21:02 - Notes Notes: Vital signs reviewed, please refer to chart. Head is normocephalic, atraumatic. Pupils equal round, reactive to light. Neck is supple without meningismus. He art is regular rate and rhythm. Lungs reveal mildly diminished breath sounds with occasional expiratory wheezes. Abdomen is soft, nontender, normoactive bowel sounds throughout. Extremities without cyanosis, clubbing. Posterior calves are nontender. Peripheral pulses are equal. Skin is warm and dry. Patient is awake, alert, neurological exam is nonfocal. Course - Re-evaluation Re-evalutation: 04/26/19 02:37 Patient presents emergency department for evaluation. She was mildly hypoxic on her normal 3 L. Her oxygen was increased. She was administered Solu-Medrol, breathing treatment. Laboratory investigations and chest x-ray were obtained. Labs were largely unremarkable. During the course of her stay, patient stated she felt somewhat worse, she was placed on BiPAP. She tolerated this well and was sleeping. VBG was obtained and was completely normal. Patient was in the room, resting on her normal FiO2, without any apparent difficulties. I will then treat her with antibiotics and steroids. She is to follow-up with her primary care physician this week. She is to return to the emergency department with worsening or new concerning symptoms of any sort. - Vital Signs Vital signs: Temp Pulse Resp BP Pulse Ox 98.2 F 71 25 H 150/82 H 88 L 04/25/19 21:02 04/25/19 21:02 04/25/19 23:29 04/25/19 21:02 04/25/19 23:31 - Laboratory Result Diagrams: 04/25/19 21:30 04/25/19 21:30 Laboratory results interpreted by me: 04/25/19 04/25/19 04/26/19 21:30 21:30 01:20 WBC 11.4 H Hgb 11.3 L Hct 34.8 L RDW 14.4 H Carbon Dioxide 33 H BUN 22 H Est GFR (Non-Af Amer) 54 L Glucose 120 H Urine Glucose (UA) 50 H - Diagnostic Test Radiology reviewed: Reports reviewed Radiology results interpreted by me: 04/26/19 02:38 Chest X-Ray 04/25/19 21:49 IMPRESSION: No acute disease. copyright 2010 [employer]- All Rights Reserved - EKG Interpretation by Me Additional EKG results interpreted by me: 04/26/19 02:39 Sinus mechanism with a rate of 74 bpm. Left bundle branch block. No significant change from prior. Discharge - Discharge Clinical Impression: COPD exacerbation Condition: Stable Disposition: HOME, SELF-CARE Instructions: Chronic Obstructive Lung Disease ([facility]) Additional Instructions: Take medications as prescribed, starting tomorrow. Follow-up with your primary care physician this week. Return to the emergency department with worsening or new concerning symptoms. Referrals: WILMAR BENSON FNP-C [Primary Care Provider] - Follow up as needed
[2019-04-26 03:34] VITALS: BP 165/83
--- NOTE | 2019-04-26 07:33 | EKG REPORT ---
SEVERITY:- ABNORMAL ECG - SINUS RHYTHM LEFT BUNDLE BRANCH BLOCK : Confirmed by: Paras Alvarado MD 26-Apr-2019 07:32:53
== END 2019-04-26 03:35 | disposition home or self-care (01) ==
LOC: ER 20:27
DX: J44.1 Chronic obstructive pulmonary disease with (acute) exacerbation (principal); R07.9 Chest pain, unspecified; Z99.81 Dependence on supplemental oxygen; Z88.6 Allergy status to analgesic agent; E11.9 Type 2 diabetes mellitus without complications; I50.9 Heart failure, unspecified; I11.0 Hypertensive heart disease with heart failure; I25.10 Atherosclerotic heart disease of native coronary artery without angina pectoris; Z86.718 Personal history of other venous thrombosis and embolism; Z90.49 Acquired absence of other specified parts of digestive tract; Z90.710 Acquired absence of both cervix and uterus
CPT/HCPCS: 93005; 94640; 99285; 96374; 36415; 85025; 80053; 81001; 84484; 82803; 83880; 71045; 93010; 94660 ×2; J2930; A9270; J7620

== ENCOUNTER 2019-05-07 18:59 | Inpatient (IN) | payer MEDICARE ==
[2019-05-07] MEDS ORDERED: METHYLPREDNISOLONE INJ 125 MG/2 ML SDV IV ONE (19:19)
[2019-05-07] MEDS ORDERED: IPRATROPIUM/ALBUTEROL 0.5-2.5 MG/3 ML AMPUL NEB ONE (19:19)
[2019-05-07] MEDS ORDERED: RINGERS SOLUTION,LACTATED 1,000 ML IV ONE (19:20)
--- NOTE | 2019-05-07 19:21 | ER Document Report ---
ED General - General Chief Complaint: Shortness Of Breath Stated Complaint: DIFFICULTY BREATHING Time Seen by Provider: 05/07/19 19:18 Cannot obtain history due to: Unstable vital signs, Other - Respiratory distress Notes: Patient is a 73-year-old female with a past medical history of COPD who presents in respiratory distress. Initial history limited secondary to the patient's degree of distress. Apparently for the past several days the patient has had progressive worsening of her shortness of breath with associated cough and sputum production. Patient was apparently saturating the low 80s on her normal 3 L by nasal cannula when EMS arrived. Patient reports that she has had similar exacerbations in the past that have required BiPAP application and hospitalization. Has not seen her primary doctor regarding today's concerns. Regards symptoms as being very severe and persistent. States she feels like she cannot breathe at the time of my initial evaluation. History otherwise limited. TRAVEL OUTSIDE OF THE [place] IN LAST 30 DAYS: No - Related Data Allergies/Adverse Reactions: ibuprofen [From Motrin] Allergy (Intermediate, Verified 05/07/19 19:01) RASH/UTICARTIA Past Medical History - General Information source: Patient - Social History Smoking Status: Former Smoker Frequency of alcohol use: None Drug Abuse: None Lives with: Family Family History: COPD, Hypertension - Past Medical History Cardiac Medical History: Reports: Hx Congestive Heart Failure, Hx Coronary Artery Disease, Hx DVT, Hx Hypertension Denies: Hx Heart Attack, Hx Heart Murmur Pulmonary Medical History: Reports: Hx Asthma, Hx COPD, Hx Pneumonia Denies: Hx Bronchitis, Hx Respiratory Failure, Hx Sleep Apnea, Hx Tuberculosis Neurological Medical History: Denies: Hx Cerebrovascular Accident, Hx Seizures Endocrine Medical History: Reports: Hx Diabetes Mellitus Type 2 Renal/ Medical History: Reports: Hx Renal Insufficiency. Denies: Hx Peritoneal Dialysis GI Medical History: Reports: Hx Diverticulitis, Hx Gastroesophageal Reflux Disease. Denies: Hx Hepatitis, Hx Hiatal Hernia, Hx Pancreatitis, Hx Ulcer - ? Musculoskeletal Medical History: Reports Hx Arthritis, Denies Hx Systemic Lupus Erythematosus Psychiatric Medical History: Denies: Hx Depression Traumatic Medical History: Reports: Hx Fractures - several broken ribs Infectious Medical History: Denies: Hx Hepatitis Past Surgical History: Reports: Hx Appendectomy, Hx Cholecystectomy, Hx Herniorr haphy, Hx Hysterectomy, Hx Orthopedic Surgery - rotator cuff. Denies: Hx Mastectomy, Hx Open Heart Surgery, Hx Pacemaker - Immunizations Immunizations up to date: Yes Hx Diphtheria, Pertussis, Tetanus Vaccination: No Hx Pneumococcal Vaccination: 08/30/14 Review of Systems - Review of Systems Notes: Constitutional: Negative for fever. HENT: Negative for sore throat. Eyes: Negative for visual changes. Cardiovascular: Positive for chest discomfort Respiratory: Positive for shortness of breath and cough Gastrointestinal: Negative for abdominal pain, vomiting or diarrhea. Genitourinary: Negative for dysuria. Musculoskeletal: Negative for back pain. Skin: Negative for rash. Neurological: Negative for headaches, weakness or numbness. 10 point ROS negative except as marked above and in HPI. Physical Exam - Vital signs Vitals: Temp Pulse Resp BP Pulse Ox 99.0 F 92 16 140/72 H 82 L 05/07/19 19:06 05/07/19 19:06 05/07/19 19:06 05/07/19 19:06 05/07/19 19:06 Interpretation: Hypoxic, Tachypneic Notes: PHYSICAL EXAMINATION: GENERAL: Uncomfortable in appearance, moderate respiratory distress HEAD: Atraumatic, normocephalic. EYES: Pupils equal round and reactive to light, extraocular movements intact, sclera anicteric, conjunctiva are normal. ENT: nares patent, oropharynx clear without exudates. Moderately dry mucous membranes. NECK: Normal range of motion, supple without lymphadenopathy LUNGS: Diminished air movement in all lung blackmon, coarse expiratory wheezing throughout. Moderate respiratory distress. HEART: Regular rate and rhythm without murmurs ABDOMEN: Soft, nontender, normoactive bowel sounds. No guarding, no rebound. No masses appreciated. EXTREMITIES: Normal range of motion, no pitting or edema. No cyanosis. NEUROLOGICAL: No focal neurological deficits. Moves all extremities spontaneously and on command. PSYCH: Anxious but appropriate to situation SKIN: Warm, Dry, normal turgor, no rashes or lesions noted. Course - Re-evaluation Re-evalutation: 05/07/19 19:20 Patient presents in respiratory distress saturating 82% on 3 L by nasal cannula which is her normal home oxygen dependence. Patient is noted to be tachypneic, retracting, and in obvious distress at time of initial evaluation. She was placed on a nonrebreather initially and will be transitioned to BiPAP immediately. Upon examination shows diminished air movement in all lung blackmon, faint expiratory wheezing throughout. She has no stigmata of CHF. History of similar symptoms in the past with pneumonia and COPD exacerbations, clinical concern for the same today. She is however also complaining of chest pain and a cardiac work-up will likewise be obtained. Patient is in guarded condition, will be reassessed at regular intervals. 05/07/19 20:17 Patient's work of breathing has continued to improve significantly on BiPAP, chest x-ray is unremarkable. Labs overall unremarkable. Will continue to reassess. She will require hospitalization. Empiric antibiotic coverage has been initiated given her COPD exacerbation. 05/07/19 22:13 Patient is continue to improve on BiPAP. I discussed this case with Dr. Ruiz who is excepted the patient for admission. - Vital Signs Vital signs: Temp Pulse Resp BP Pulse Ox 99.0 F 70 27 H 116/79 97 05/07/19 19:06 05/08/19 02:00 05/08/19 00:23 05/07/19 20:45 05/08/19 00:23 - Laboratory Result Diagrams: 05/07/19 19:19 05/07/19 19:19 Laboratory results interpreted by me: 05/07/19 05/07/19 05/07/19 19:19 19:19 19:19 WBC 12.3 H RBC 3.60 L Hgb 10.9 L Hct 33.3 L Absolute Neutrophils 9.4 H Carbon Dioxide 31 H Est GFR (Non-Af Amer) 57 L Glucose 184 H Lactic Acid NT-Pro-B Natriuret Pep 3190 H Total Protein 5.9 L Albumin 3.3 L 05/07/19 19:19 WBC RBC Hgb Hct Absolute Neutrophils Carbon Dioxide Est GFR (Non-Af Amer) Glucose Lactic Acid 2.3 H NT-Pro-B Natriuret Pep Total Protein Albumin - Diagnostic Test Radiology reviewed: Image reviewed, Reports reviewed Radiology results interpreted by me: 05/07/19 22:13 Chest x-ray: No acute infiltrate or pneumothorax - EKG Interpretation by Me Additional EKG results interpreted by me: 05/07/19 22:13 Sinus rhythm, rate 87, left bundle branch block is present. QTC 491. No changes from previous EKG Critical Care Note - Critical Care Note Total time excluding time spent on procedures (mins): 38 Comments: Critical care time spent obtaining history from patient or surrogate, d iscussions with consultants, development of treatment plan with patient or surrogate, evaluation of patient's response to treatment, examination of patient, ordering and performing treatments and interventions, ordering and review of laboratory studies, re-evaluation of patient's condition, ordering and review of radiographic studies and review of old charts Discharge - Discharge Clinical Impression: Respiratory distress, Acute exacerbation of chronic obstructive pulmonary disease (COPD), Acute and chronic respiratory failure with hypoxia Condition: Fair Disposition: ADMITTED INPATIENT Admitting Provider: Sara (Hospitalist) Unit Admitted: Medical Floor
[2019-05-07 19:30] LABS: VENOUS BLOOD BASE EXCESS 2.9 mmol/L; VENOUS BLOOD HCO3 29.5 mmol/L (20-32); VENOUS BLOOD PCO2 55.4 mmHg (35-63); VENOUS BLOOD PH 7.34 (7.30-7.42)
[2019-05-07 19:37] LABS: ABSOLUTE EOSINOPHILS # (AUTO) 0.1 10^3/uL (0.0-0.6); ABSOLUTE LYMPHOCYTES (AUTO) 1.8 10^3/uL (0.5-4.7); ABSOLUTE MONOCYTES (AUTO) 0.9 10^3/uL (0.1-1.4); ABSOLUTE NEUT (AUTO) 9.4 10^3/uL (1.7-8.2); BASOPHILS % (AUTO) 0.2 % (0-2); HEMATOCRIT 33.3 % (36.0-47.0); HEMOGLOBIN 10.9 g/dL (12.0-15.5); MEAN CORPUSCULAR HEMOGLOBIN 30.1 pg (27.0-33.4); MEAN CORPUSCULAR HGB CONC 32.6 g/dL (32.0-36.0); MEAN CORPUSCULAR VOLUME 92 fl (80-97); MONOCYTES % (AUTO) 7.1 % (3-13); PLATELET COUNT 190 10^3/uL (150-450); RED CELL DISTRIBUTION WIDTH 13.9 % (11.5-14.0); SEGMENTED NEUTROPHILS % (AUTO) 76.7 % (42-78); TOTAL CELLS COUNTED % (AUTO) 100 %; WHITE BLOOD COUNT 12.3 10^3/uL (4.0-10.5)
[2019-05-07 19:47] LABS: ALANINE AMINOTRANSFERASE 21 U/L (9-52); ALBUMIN 3.3 g/dL (3.5-5.0); ALKALINE PHOSPHATASE 92 U/L (38-126); ANION GAP 7 (5-19); ASPARTATE AMINO TRANSFERASE 20 U/L (14-36); BILIRUBIN,DIRECT 0.3 mg/dL (0.0-0.4); BILIRUBIN,TOTAL 0.4 mg/dL (0.2-1.3); BLOOD UREA NITROGEN 15 mg/dL (7-20); CALCIUM 8.5 mg/dL (8.4-10.2); CARBON DIOXIDE 31 mmol/L (22-30); CHLORIDE 103 mmol/L (98-107); GLUCOSE 184 mg/dL (75-110); POTASSIUM 4.5 mmol/L (3.6-5.0); SODIUM 140.5 mmol/L (137-145); TOTAL PROTEIN 5.9 g/dL (6.3-8.2)
--- NOTE | 2019-05-07 19:58 | RADIOLOGY REPORT (SQ) ---
EXAM DESCRIPTION: CHEST SINGLE VIEW COMPLETED DATE/TIME: 05/07/2019 7:40 pm REASON FOR STUDY: sob COMPARISON: 04/25/2019 TECHNIQUE: Single frontal radiographic view of the chest acquired. NUMBER OF VIEWS: One view. LIMITATIONS: RPO positioning FINDINGS: LUNGS AND PLEURA: No pneumothorax. Minimal bibasilar subpleural scarring. No consolidati on or significant pleural effusion. MEDIASTINUM AND HILAR STRUCTURES: Stable. HEART AND VASCULAR STRUCTURES: Stable. BONES: No acute findings. HARDWARE: None in the chest. OTHER: No other significant finding. IMPRESSION: Minimal bibasilar subpleural scarring. No consolidation or significant pleural effusion . TECHNICAL DOCUMENTATION: JOB ID: [id number] [place]-72 2010 [employer]- All Rights Reserved Reading location - IP/workstation name: [email or web address]
[2019-05-07 19:59] LABS: TROPONIN I 0.017 ng/mL
[2019-05-07] MEDS ORDERED: ALBUTEROL SULFATE 0.083% NEB 2.5 MG/3 ML AMPUL NEB ONE (20:16)
[2019-05-07] MEDS ORDERED: CEFTRIAXONE INJ 1000 MG VIAL IV ONE (20:17)
[2019-05-07] MEDS ORDERED: AZITHROMYCIN INJ 500 MG VIAL IV ONE ×2 (20:17→23:00)
[2019-05-07] MEDS ORDERED: ACETAMINOPHEN 325 MG TABLET PO ONE (20:47)
--- NOTE | 2019-05-07 22:00 | EKG REPORT ---
SEVERITY:- ABNORMAL ECG - SINUS RHYTHM LEFT BUNDLE BRANCH BLOCK : Confirmed by: Paras Alvarado MD 07-May-2019 22:00:11
[2019-05-07] MEDS ORDERED: MAG HYDROX/AL HYDROX/SIMETH SUSP 30 ML UDCUP PO PRN (23:13)
[2019-05-07] MEDS ORDERED: ONDANSETRON HCL INJ/PF 4 MG/2 ML SDV IV PRN (23:13)
[2019-05-07] MEDS ORDERED: MAGNESIUM HYDROXIDE SUSP 30 ML UDCUP PO PRN (23:13)
[2019-05-07] MEDS ORDERED: NICOTINE 21 MG/24 HR PATCH.TD24 TD PRN (23:27)
[2019-05-07] MEDS ORDERED: HYDRALAZINE HCL INJ/PF 20 MG/1 ML SDV IV PRN (23:27)
[2019-05-07] MEDS ORDERED: ACETAMINOPHEN 325 MG TABLET PO PRN (23:27)
[2019-05-07] MEDS ORDERED: MORPHINE SULFATE 10 MG/ML INJ IV PRN (23:27)
[2019-05-07] MEDS ORDERED: LEVALBUTEROL HCL NEB 0.63 MG/3 ML AMPUL NEB PRN (23:27)
[2019-05-07] MEDS ORDERED: DEXTROSE 50%-WATER 25 GM/50 ML DISP.SYRIN IV PRN ×2 (23:28)
[2019-05-07] MEDS ORDERED: GLUCAGON,HUMAN RECOMB 1 MG INJ IM PRN (23:28)
[2019-05-07] MEDS ORDERED: DEXTROSE 40% GEL 15 GM TUBE PO PRN ×2 (23:28)
[2019-05-08] MEDS: LEVALBUTEROL HCL NEB 1.25 MG/3 ML AMPUL NEB SCH ×3 (00:23→16:29)
[2019-05-08] MEDS: IPRATROPIUM BROMIDE 0.02% NEB 0.5 MG/2.5 ML AMPUL NEB SCH ×3 (00:23→16:29)
[2019-05-08] MEDS: GABAPENTIN 400 MG CAPSULE PO SCH ×3 (00:29→21:14)
[2019-05-08] MEDS: GUAIFENESIN 600 MG TABLET.SA PO SCH ×3 (00:29→21:14)
[2019-05-08 01:59] LABS: CREATINE KINASE MB 1.8 ng/mL (<4.55); TROPONIN I 0.029 ng/mL
--- NOTE | 2019-05-08 02:39 | PDOC H&P ---
History of Present Illness Admission Date/PCP: 05/07/2019 22:23 STEVE SCANLON Patient complains of: Dyspnea History of Present Illness: GAVI PEDRO is a 73 year old female presented to the emergency room with a 3-day history of dyspnea. Patient admits progressively worsening dyspnea over the last 3 days with her dyspnea becoming suddenly severe in the afternoon of her day of admission. She was unable to alleviate her dyspnea by using her inhaler treatments and supplemental oxygen at home and thus she summoned the EMS. Her dyspnea was made worse by exertion was accompanied by a constant, moderately intense, pressure-like, midsternal chest pain without radiation beginning this evening prior to her admission. She additionally admits an associated orthopnea and a slightly worsened chronic cough productive of yellow-brown sputum over the last 2 to 3 days. During the of her acutely worse dyspnea this afternoon she admits associated severe diaphoresis, a moderately severe headache and severe cramping of her hands and feet. She admits prior similar episodes on numerous occasions related to her COPD, pneumonia and congestive heart failure. She has not identified any additional aggravating or ameliorating factors for her current dyspnea. In the emergency room she was noted to be in severe respiratory distress with increased work of breathing. She was immediately placed on BiPAP with significant improvement. She was given nebulizer breathing treatments and intravenous Solu-Medrol. She was additionally started on IV antibiotic therapy of Rocephin and azithromycin. A cardiac evaluation was initiated and her first troponin was normal and her EKG showed no evidence of myocardial ischemia or injury. She was subsequently admitted to the telemetry floor for further evaluation and treatment. Past Medical History Cardiac Medical History: Reports: Congestive Heart Failure, Coronary Artery Disease, DVT, Hypertension Denies: Atrial Fibrillation, Myocardial Infarction, Heart Murmur Pulmonary Medical History: Reports: Asthma, Chronic Obstructive Pulmonary Disease (COPD), Pneumonia, Respiratory Failure Denies: Bronchitis, Sleep Apnea, Tuberculosis EENT Medical History: Denies: Cataracts, Ears - Hearing aids Neurological Medical History: Denies: Hemorrhagic CVA, Ischemic CVA, Multiple Sclerosis, Seizures Endocrine Medical History: Reports: Diabetes Mellitus Type 2 Denies: Diabetes Mellitus Type 1, Hyperthyroidism, Hypothyroidism Renal/ Medical History: Denies: Chronic Kidney Disease, Nephrolithiasis Malignancy Medical History: Reports: None GI Medical History: Reports: Diverticulitis, Gastroesophageal Reflux Disease Denies: Cirrhosis, Crohn's Disease, Hepatitis, Hiatal Hernia, Ulcerative Colitis Musculoskeltal Medical History: Reports: Arthritis Denies: Gout Skin Medical History: Denies: Eczema, Psoriasis Psychiatric Medical History: Reports: Tobacco Dependency Denies: Alcohol Dependency, Depression, Substance Abuse Traumatic Medical History: Reports: None Hematology: Reports: Anemia Denies: Bleeding Tendencies Infectious Medical History: Reports: None Past Surgical History Past Surgical History: Reports: Appendectomy, Cholecystectomy, Herniorrhaphy, Hysterectomy, Orthopedic Surgery - rotator cuff surgery Social History Information Source: Patient Lives with: Spouse/Significant other Smoking Status: Current Every Day Smoker Frequency of Alcohol Use: None Hx Recreational Drug Use: No Drugs: None Hx Prescription Drug Abuse: No - Advance Directive Resuscitation Status: Full Code Surrogate healthcare decision maker:: Edwardo Jack Family History Family History: CAD, COPD, DM, Hypertension Parental Family History Reviewed: Yes Children Family History Reviewed: No Sibling(s) Family History Reviewed.: Yes Medication/Allergy Home Medications: Metformin HCl [Glucophage 500 mg Tablet] 500 mg PO BID 07/09/18 Aspirin [Aspirin EC] 81 mg PO DAILY 08/26/18 Lisinopril [Prinivil 5 mg Tablet] 5 mg PO DAILY tablet 08/30/18 Atorvastatin Calcium [Lipitor 10 mg Tablet] 10 mg PO QHS 02/04/19 Fluticasone/Umeclidin/Vilanter [Trelegy 100-62.5-25 Mcg Ellipta 14 Dose/Dpi] 1 each IN DAILY 02/04/19 Hydrocodone/Acetaminophen [[place] 5-325 mg Tablet] 1 tab PO BID 02/04/19 Budesonide/Formoterol Fumarate [Symbicort HFA 160-4.5 mcg Inhaler 6 gm] 2 puff IH Q12 02/05/19 Gabapentin [Neurontin 400 mg Capsule] 400 mg PO Q12 02/05/19 Acetaminophen [Tylenol 325 mg Tablet] 650 mg PO Q6HP PRN tablet 02/06/19 Azithromycin [Zithromax 250 mg Tablet] 250 mg PO DAILY #4 tablet 02/06/19 Gabapentin [Neurontin 400 mg Capsule] 400 mg PO BID capsule 02/06/19 Guaifenesin [Mucinex Sr 600 mg Tablet.sa] 600 mg PO Q12 #14 tablet.sa 02/06/19 Nicotine [Nicoderm 14 mg/24 Hr Transdermal Patch] 1 each TD DAILY #30 patch.td24 02/06/19 Prednisone [Deltasone 20 mg Tablet] 20 mg PO BID #8 tablet 02/06/19 Azithromycin [Zithromax 250 mg Tablet] 250 mg PO ASDIR PRN #6 tablet 04/26/19 Prednisone [Deltasone 20 mg Tablet] 3 tab PO DAILY 5 Days #15 tablet 04/26/19 Allergies/Adverse Reactions: ibuprofen [From Motrin] Allergy (Intermediate, Verified 05/07/19 19:01) RASH/UTICARTIA Review of Systems Constitutional: ABSENT: chills, fever(s) Eyes: ABSENT: visual disturbances, other - Eye pain Ears: ABSENT: hearing changes, other - Ear pain Nose, Mouth, and Throat: ABSENT: mouth pain, sore throat Cardiovascular: PRESENT: as per HPI, chest pain, dyspnea on exertion, orthropnea. ABSENT: edema, palpitations Respiratory: PRESENT: cough, dyspnea, sputum. ABSENT: hemoptysis Gastrointestinal: ABSENT: abdominal pain, constipation, diarrhea, nausea, vomiting Genitourinary: ABSENT: dysuria, hematuria Musculoskeletal: ABSENT: joint swelling, muscle weakness Integumentary: ABSENT: pruritus, rash Neurological: ABSENT: confusion, convulsions, focal weakness, memory loss, syncope Psychiatric: ABSENT: anxiety, depression Endocrine: ABSENT: cold intolerance, heat intolerance Hematologic/Lymphatic: ABSENT: easy bleeding, easy bruising Physical Exam Vital Signs: Temp Pulse Resp BP Pulse Ox 99.0 F 92 21 H 116/79 95 05/07/19 19:06 05/07/19 19:06 05/07/19 20:45 05/07/19 20:45 05/07/19 20:45 Intake & Output 05/05/19 05/06/19 05/07/19 23:59 23:59 23:59 Intake Total 1000 Balance 1000 General appearance: PRESENT: cooperative, mild distress - Mild respiratory distress, other - On BiPAP Head exam: PRESENT: atraumatic, normocephalic Eye exam: ABSENT: conjunctival injection, scleral icterus Ear exam: PRESENT: normal external ear exam. ABSENT: bleeding, drainage Mouth exam: PRESENT: dry mucosa, neck supple Neck exam: ABSENT: thyromegaly, tracheal deviation Respiratory exam: PRESENT: accessory muscle use - Continues mild use of accessory muscles despite BiPAP, decreased breath sounds - Moderately decreased breath sounds throughout all blackmon consistent with moderate to severe COPD, prolonged expiratory phas - Moderately prolonged expiratory phase, symmetrical, tachypnea, wheezes - Moderate expiratory wheezes, other - On BiPAP Cardiovascular exam: PRESENT: RRR, rubs. ABSENT: clicks, gallop Pulses: PRESENT: normal radial pulses, normal dorsalis pedis pul Vascular exam: PRESENT: normal capillary refill. ABSENT: pallor GI/Abdominal exam: PRESENT: normal bowel sounds, soft Rectal exam: PRESENT: deferred Extremities exam: ABSENT: joint swelling, pedal edema Musculoskeletal exam: PRESENT: full ROM, normal inspection Neurological exam: PRESENT: alert, oriented to person, oriented to place, oriented to time, oriented to situation, CN II-XII grossly intact. ABSENT: motor sensory deficit Psychiatric exam: PRESENT: appropriate affect, normal mood Skin exam: PRESENT: dry, intact, warm. ABSENT: jaundice, rash, urticaria Results Laboratory Results: 05/07/19 19:19 05/07/19 19:19 05/07/19 05/07/19 05/07/19 19:19 19:19 19:19 WBC 12.3 H RBC 3.60 L Hgb 10.9 L Hct 33.3 L MCV 92 MCH 30.1 MCHC 32.6 RDW 13.9 Plt Count 190 Seg Neutrophils % 76.7 Lymphocytes % 15.0 Monocytes % 7.1 Eosinophils % 1.0 Basophils % 0.2 Absolute Neutrophils 9.4 H Absolute Lymphocytes 1.8 Absolute Monocytes 0.9 Absolute Eosinophils 0.1 Absolute Basophils 0.0 VBG pH VBG pCO2 VBG HCO3 VBG Base Excess Sodium 140.5 Potassium 4.5 Chloride 103 Carbon Dioxide 31 H Anion Gap 7 BUN 15 Creatinine 0.96 Est GFR ( Amer) > 60 Est GFR (Non-Af Amer) 57 L Glucose 184 H Lactic Acid 2.3 H Calcium 8.5 Total Bilirubin 0.4 AST 20 ALT 21 Alkaline Phosphatase 92 Total Protein 5.9 L Albumin 3.3 L 05/07/19 19:19 WBC RBC Hgb Hct MCV MCH MCHC RDW Plt Count Seg Neutrophils % Lymphocytes % Monocytes % Eosinophils % Basophils % Absolute Neutrophils Absolute Lymphocytes Absolute Monocytes Absolute Eosinophils Absolute Basophils VBG pH 7.34 VBG pCO2 55.4 VBG HCO3 29.5 VBG Base Excess 2.9 Sodium Potassium Chloride Carbon Dioxide Anion Gap BUN Creatinine Est GFR ( Amer) Est GFR (Non-Af Amer) Glucose Lactic Acid Calcium Total Bilirubin AST ALT Alkaline Phosphatase Total Protein Albumin 05/07/19 19:19 Troponin I 0.017 NT-Pro-B Natriuret Pep 3190 H Impressions: Chest X-Ray 05/07/19 19:18 IMPRESSION: Minimal bibasilar subpleural scarring. No consolidation or significant pleural effusion. Assessment and Plan - Diagnosis (1) Acute exacerbation of chronic obstructive pulmonary disease (COPD) Is this a current diagnosis for this admission?: Yes Plan: Patient will be admitted to the medical telemetry floor and receive an aggressive pulmonary toilet utilizing nebulized Xopenex, Pulmicort and Atrovent. She will also receive IV Solu-Medrol and supplemental oxygen with noninvasive airway pressure support as required to maintain adequate O2 sat. Daily CBC, metabolic profiles and magnesium levels will be used to follow the course of the patient's disease and assess efficacy of therapy. Patient was started on antibiotic therapy in the emergency room by the emergency room physician due to her history of productive cough, she will be continued on oral antibiotic therapy for a short course of treatment. (2) Acute and chronic respiratory failure with hypoxia Is this a current diagnosis for this admission?: Yes Plan: Patient receive supplemental oxygen and noninvasive airway pressure support to maintain adequate O2 saturation. Further intervention will be undertaken if required. (3) Chest pain Qualifiers: Chest pain type: unspecified Qualified Code(s): R07.9 - Chest pain, unspecified Is this a current diagnosis for this admission?: Yes Plan: The patient will be on a telemetry monitored floor and will have serial cardiac enzymes and EKGs performed. Further evaluation and intervention will be based upon the results of her testing. She will use morphine sulfate 2 to 4 mg IV every 2 hours on a as needed basis via sliding scale for chest pain. (4) CAD (coronary artery disease) Qualifiers: Coronary Disease-Associated Artery/Lesion type: [place] artery [place] vs. transplanted heart: [place] heart Associated angina: with unspecified angina Qualified Code(s): I25.119 - Atherosclerotic heart disease of [place] coronary artery with unspecified angina pectoris Is this a current diagnosis for this admission?: Yes Plan: Patient will be continued on her usual cardiac medications. She will undergo evaluation for her chest pain as noted above. Medication changes will be made as appropriate. (5) Chronic diastolic CHF (congestive heart failure) Is this a current diagnosis for this admission?: Yes Plan: Patient will be continued on her current heart failure medications with adjustments as appropriate. Her BNP was noted to be greater than 3000 which is higher than her baseline. Her clinical progress be monitored closely. (6) HTN (hypertension) Qualifiers: Hypertension type: essential hypertension Qualified Code(s): I10 - Essential (primary) hypertension Is this a current diagnosis for this admission?: Yes Plan: Patient be maintained on her current antihypertensive medications with adjustments made as appropriate. Vital signs be followed closely throughout her hospital course. (7) Diabetes mellitus type 2 in obese Is this a current diagnosis for this admission?: Yes Plan: Patient be continued on her current diabetic regiment as well as a diabetic diet. Hemoglobin A1c will be obtained to evaluate the patient's current therapies efficacy. She will also placed on before meals and at bedtime Accu- Chek regiment with sliding scale coverage for hyperglycemia during her hospital course. (8) Tobacco abuse Is this a current diagnosis for this admission?: Yes Plan: Smoking cessation is advised and counseled briefly. A nicotine replacement patch is available for the patient's use. - Time Time Spent with patient: 25-34 minutes Smoking Cessation Education: 3 to 10 minutes Medications reviewed and adjusted accordingly: Yes Anticipated discharge: Home - Inpatient Certification Based on my medical assessment, after consideration of the patient's comorbidities, presenting symptoms, or acuity I expect that the services needed warrant INPATIENT care.: Yes I certify that my determination is in accordance with my understanding of Medicare's requirements for reasonable and necessary INPATIENT services [42 CFR 412.3e].: Yes Medical Necessity: Significant Comorbidiites Make Outpatient Treatment Too Risky, Need Close Monitoring Due to Risk of Patient Decompensation, Need For Continuous Telemetry Monitoring, Need for Nebulizer Therapy and Monitoring of Re sponse, Risk of Complication if Not Cared For in Hospital
--- NOTE | 2019-05-08 02:43 | ADVANCED CARE ---
- Diagnosis (1) Acute exacerbation of chronic obstructive pulmonary disease (COPD) Diagnosis Current: Yes (2) Acute and chronic respiratory failure with hypoxia Diagnosis Current: Yes (3) Chest pain Diagnosis Current: Yes (4) CAD (coronary artery disease) Diagnosis Current: Yes (5) Chronic diastolic CHF (congestive heart failure) Diagnosis Current: Yes (6) HTN (hypertension) Diagnosis Current: Yes (7) Diabetes mellitus type 2 in obese Diagnosis Current: Yes (8) Tobacco abuse Diagnosis Current: Yes Attendance: The patient and myself. Resuscitation Status: Full Code Discussion: Patient is indicated that she wishes to be a full code for any cardiac or respiratory arrest may occur during her hospital course. If need be she would prefer to be put on a ventilator and she understands that there is a risk that she may not be able to be taken off of the ventilator. She also wishes to name her son Edwardo Man as her designated surrogate medical decision maker. Care Planning Goals: 1. Patient will be a full code with endotracheal intubation if needed. 2. Edwind Crews will be the patient's designated surrogate medical decision- maker. Document(s) Completed: 1. Patient will be a full code with endotracheal intubation if needed. This is entered into the EMR and medical orders. 2. Edwind Crews will be the patient's designated surrogate medical decision- maker. This is been made part of the medical record. Time Spent: 16 minutes
[2019-05-08 03:08] LABS: ARTERIAL BLOOD BASE EXCESS 2.4 mmol/L; ARTERIAL BLOOD FIO2 50%; ARTERIAL BLOOD H2CO3 1.87 mmol/L (1.05-1.35); ARTERIAL BLOOD O2 SATURATION 97.8 % (94-98); ARTERIAL BLOOD PO2 117.3 mmHg (80-100); ARTERIAL BLOOD TOTAL CO2 31.9 mmol/L (21-25)
[2019-05-08] MEDS: HEPARIN SOD (PORCINE) 5,000 UNIT/ML 1 ML SYRINGE SUBCUT SCH ×3 (05:20→21:14)
[2019-05-08] MEDS: PANTOPRAZOLE SODIUM 40 MG TABLET.DR PO SCH ×2 (05:21→17:22)
--- NOTE | 2019-05-08 06:35 | EKG REPORT ---
SEVERITY:- ABNORMAL ECG - SINUS RHYTHM LEFT BUNDLE BRANCH BLOCK : Confirmed by: Paras Alvarado MD 08-May-2019 06:34:45
[2019-05-08] MEDS: BUDESONIDE NEB 0.5 MG/2 ML AMPUL NEB SCH ×2 (07:38→19:38)
[2019-05-08] MEDS: ACETYLCYSTEINE 20% SOLN 800 MG/4 ML VIAL.NEB NEB SCH ×2 (07:38→19:38)
[2019-05-08 07:48] LABS: ABSOLUTE LYMPHOCYTES (AUTO) 0.5 10^3/uL (0.5-4.7); ABSOLUTE MONOCYTES (AUTO) 0.1 10^3/uL (0.1-1.4); ABSOLUTE NEUT (AUTO) 7.3 10^3/uL (1.7-8.2); BASOPHILS % (AUTO) 0.2 % (0-2); HEMATOCRIT 30.7 % (36.0-47.0); HEMOGLOBIN 9.9 g/dL (12.0-15.5); MEAN CORPUSCULAR HEMOGLOBIN 30.3 pg (27.0-33.4); MEAN CORPUSCULAR HGB CONC 32.3 g/dL (32.0-36.0); MEAN CORPUSCULAR VOLUME 94 fl (80-97); MONOCYTES % (AUTO) 1.6 % (3-13); PLATELET COUNT 151 10^3/uL (150-450); RED BLOOD COUNT 3.28 10^6/uL (3.72-5.28); RED CELL DISTRIBUTION WIDTH 14.4 % (11.5-14.0); SEGMENTED NEUTROPHILS % (AUTO) 92.2 % (42-78); TOTAL CELLS COUNTED % (AUTO) 100 %; WHITE BLOOD COUNT 7.9 10^3/uL (4.0-10.5)
[2019-05-08 08:05] LABS: ANION GAP 6 (5-19); BLOOD UREA NITROGEN 17 mg/dL (7-20); CALCIUM 8.3 mg/dL (8.4-10.2); CARBON DIOXIDE 30 mmol/L (22-30); CHLORIDE 103 mmol/L (98-107); CHOLESTEROL 172.32 mg/dL (0-200); CREATINE KINASE 37 U/L (30-135); GLUCOSE 273 mg/dL (75-110); TRIGLYCERIDES 70 mg/dL (<150)
[2019-05-08 08:15] LABS: CREATINE KINASE MB 1.85 ng/mL (<4.55)
[2019-05-08 08:16] LABS: DIRECT LDL 107 mg/dL (<100)
[2019-05-08 08:18] LABS: TROPONIN I < 0.012 ng/mL
[2019-05-08 08:21] LABS: FREE T3 2.62 pg/mL (2.77-5.27); FREE T4 (FREE THYROXINE) 1.36 ng/dL (0.78-2.19)
[2019-05-08] MEDS: METFORMIN HCL 500 MG TABLET PO SCH ×2 (08:26→17:22)
[2019-05-08 08:35] LABS: THYROID STIMULATING HORMONE 0.25 uIU/mL (0.47-4.68)
[2019-05-08] MEDS: DOCUSATE SODIUM 100 MG CAPSULE PO SCH ×2 (09:13→17:24)
[2019-05-08] MEDS: LISINOPRIL 5 MG TABLET PO SCH (09:13)
[2019-05-08] MEDS: ASPIRIN 81 MG TABLET, ENT COATED PO SCH (09:13)
[2019-05-08] MEDS: INSULIN REG, HUMAN 100 UNIT/ML 3 ML VIAL (PYX) SUBCUT PRN ×2 (09:14→12:17)
[2019-05-08] MEDS: FLUTICASONE/UMECLIDIN/VILANTER 100-62.5-25 MCG/DOSE IH SCH (09:14)
[2019-05-08] MEDS: DOXYCYCLINE HYCLATE 100 MG TABLET PO SCH ×2 (09:17→17:24)
[2019-05-08 10:51] LABS: APPEARANCE,URINE CLEAR; BILIRUBIN,URINE NEGATIVE (NEGATIVE); COLOR,URINE YELLOW; GLUCOSE, URINE >=500 mg/dL (NEGATIVE); KETONES,URINE NEGATIVE (NEGATIVE); LEUKOCYTE ESTERASE,URINE NEGATIVE (NEGATIVE); NITRITE,URINE NEGATIVE (NEGATIVE); PROTEIN,URINE 30 mg/dL (NEGATIVE); URINE SPECIFIC GRAVITY 1.024; UROBILINOGEN,URINE NEGATIVE mg/dL (<2.0)
[2019-05-08] MEDS: MAGNESIUM SULFATE/D5W 1 GM/100 ML RTUPB IV SCH ×3 (11:40→15:23)
[2019-05-08] MEDS ORDERED: MORPHINE SULFATE 10 MG/ML INJ IV PRN ×4 (12:20→15:18)
[2019-05-08] MEDS ORDERED: ONDANSETRON HCL INJ/PF 4 MG/2 ML SDV IV PRN (12:30)
--- NOTE | 2019-05-08 15:36 | PDOC PROGRESS REPORT ---
Subjective Progress Note for:: 05/08/19 Subjective:: 73 y.o. F with a PMH CHF CAD, DVT, COPD (still smoking), asthma, diabetes type 2, arthritis. She presented to [facility] for shortness of breath. Of note, patient has multiple admissions to [facility] for similar presentation. She is very well-known to the hospitalist service. The patient is admitted for COPD exacerbation. Patient was seen this morning on rounds. She is resting comfortably in bed on BiPAP (settings IPAP 10 EPAP 5 FiO2 35% TV~400). The patient is alert and oriented, she is able to answer all questions appropriately and speak in full sentences without pause. LCTA. No evidence of central or peripheral cyanosis. The patient does not appear to be in any distress at this time. Instructed nursing staff to remove BiPAP and place patient on nasal cannula. Continue current regimen of steroids, nebulizers and antibiotics. Reason For Visit: ACUTE EXACERBATION OF COPD Physical Exam Vital Signs: Temp Pulse Resp BP Pulse Ox 97.3 F 76 25 H 132/72 H 100 05/08/19 08:22 05/08/19 08:22 05/08/19 08:22 05/08/19 08:22 05/08/19 08:22 Intake & Output 05/07/19 05/08/19 05/09/19 06:59 06:59 06:59 Intake Total 1480 100 Output Total 500 Balance 980 100 Weight 83 kg General appearance: PRESENT: no acute distress, obese Eye exam: PRESENT: conjunctiva pink, PERRLA Mouth exam: PRESENT: moist, tongue midline Teeth exam: PRESENT: poor dentation Neck exam: PRESENT: full ROM Respiratory exam: PRESENT: clear to auscultation chago, symmetrical, unlabored Cardiovascular exam: PRESENT: +S1, +S2 Pulses: PRESENT: normal radial pulses, normal dorsalis pedis pul Vascular exam: PRESENT: normal capillary refill GI/Abdominal exam: PRESENT: normal bowel sounds, soft. ABSENT: distended, tenderness Rectal exam: PRESENT: deferred Extremities exam: PRESENT: full ROM. ABSENT: pedal edema Musculoskeletal exam: PRESENT: ambulatory, full ROM Neurological exam: PRESENT: alert, awake, oriented to person, oriented to place, oriented to time, oriented to situation Psychiatric exam: PRESENT: appropriate affect Skin exam: PRESENT: dry, intact, normal color Results Laboratory Results: 05/08/19 07:36 05/08/19 07:36 05/07/19 05/07/19 05/07/19 19:19 19:19 19:19 WBC 12.3 H RBC 3.60 L Hgb 10.9 L Hct 33.3 L MCV 92 MCH 30.1 MCHC 32.6 RDW 13.9 Plt Count 190 Seg Neutrophils % 76.7 Lymphocytes % 15.0 Monocytes % 7.1 Eosinophils % 1.0 Basophils % 0.2 Absolute Neutrophils 9.4 H Absolute Lymphocytes 1.8 Absolute Monocytes 0.9 Absolute Eosinophils 0.1 Absolute Basophils 0.0 Carbonic Acid HCO3/H2CO3 Ratio ABG pH ABG pCO2 ABG pO2 ABG HCO3 ABG O2 Saturation ABG Base Excess VBG pH VBG pCO2 VBG HCO3 VBG Base Excess FiO2 Sodium 140.5 Potassium 4.5 Chloride 103 Carbon Dioxide 31 H Anion Gap 7 BUN 15 Creatinine 0.96 Est GFR ( Amer) > 60 Est GFR (Non-Af Amer) 57 L Glucose 184 H Lactic Acid 2.3 H Calcium 8.5 Magnesium Total Bilirubin 0.4 AST 20 ALT 21 Alkaline Phosphatase 92 Total Protein 5.9 L Albumin 3.3 L Triglycerides Cholesterol LDL Cholesterol Direct VLDL Cholesterol HDL Cholesterol TSH Free T4 Free T3 pg/mL Urine Color Urine Appearance Urine pH Ur Specific [place] Urine Protein Urine Glucose (UA) Urine Ketones Urine Blood Urine Nitrite Ur Leukocyte Esterase Urine WBC (Auto) Urine RBC (Auto) 05/07/19 05/08/19 05/08/19 19:19 02:32 07:36 WBC RBC Hgb Hct MCV MCH MCHC RDW Plt Count Seg Neutrophils % Lymphocytes % Monocytes % Eosinophils % Basophils % Absolute Neutrophils Absolute Lymphocytes Absolute Monocytes Absolute Eosinophils Absolute Basophils Carbonic Acid 1.87 H HCO3/H2CO3 Ratio 16:1 ABG pH 7.30 L ABG pCO2 62.0 H ABG pO2 117.3 H ABG HCO3 30.0 H ABG O2 Saturation 97.8 ABG Base Excess 2.4 VBG pH 7.34 VBG pCO2 55.4 VBG HCO3 29.5 VBG Base Excess 2.9 FiO2 50% Sodium 139.0 Potassium 5.0 Chloride 103 Carbon Dioxide 30 Anion Gap 6 BUN 17 Creatinine 0.94 Est GFR ( Amer) > 60 Est GFR (Non-Af Amer) 58 L Glucose 273 H Lactic Acid Calcium 8.3 L Magnesium 1.4 L Total Bilirubin AST ALT Alkaline Phosphatase Total Protein Albumin Triglycerides 70 Cholesterol 172.32 LDL Cholesterol Direct 107 H VLDL Cholesterol 14.0 HDL Cholesterol 60 TSH Free T4 Free T3 pg/mL Urine Color Urine Appearance Urine pH Ur Specific [place] Urine Protein Urine Glucose (UA) Urine Ketones Urine Blood Urine Nitrite Ur Leukocyte Esterase Urine WBC (Auto) Urine RBC (Auto) 05/08/19 05/08/19 05/08/19 07:36 07:36 09:15 WBC 7.9 RBC 3.28 L Hgb 9.9 L Hct 30.7 L MCV 94 MCH 30.3 MCHC 32.3 RDW 14.4 H Plt Count 151 Seg Neutrophils % 92.2 H Lymphocytes % 6.0 L Monocytes % 1.6 L Eosinophils % 0.0 Basophils % 0.2 Absolute Neutrophils 7.3 Absolute Lymphocytes 0.5 Absolute Monocytes 0.1 Absolute Eosinophils 0.0 Absolute Basophils 0.0 Carbonic Acid HCO3/H2CO3 Ratio ABG pH ABG pCO2 ABG pO2 ABG HCO3 ABG O2 Saturation ABG Base Excess VBG pH VBG pCO2 VBG HCO3 VBG Base Excess FiO2 Sodium Potassium Chloride Carbon Dioxide Anion Gap BUN Creatinine Est GFR ( Amer) Est GFR (Non-Af Amer) Glucose Lactic Acid Calcium Magnesium Total Bilirubin AST ALT Alkaline Phosphatase Total Protein Albumin Triglycerides Cholesterol LDL Cholesterol Direct VLDL Cholesterol HDL Cholesterol TSH 0.25 L Free T4 1.36 Free T3 pg/mL 2.62 L Urine Color YELLOW Urine Appearance CLEAR Urine pH 6.0 Ur Specific [place] 1.024 Urine Protein 30 H Urine Glucose (UA) >=500 H Urine Ketones NEGATIVE Urine Blood NEGATIVE Urine Nitrite NEGATIVE Ur Leukocyte Esterase NEGATIVE Urine WBC (Auto) 0 Urine RBC (Auto) 0 05/07/19 05/08/19 05/08/19 19:19 01:26 01:26 Creatine Kinase 46 CK-MB (CK-2) 1.80 Troponin I 0.017 0.029 NT-Pro-B Natriuret Pep 3190 H 05/08/19 05/08/19 07:36 07:36 Creatine Kinase 37 CK-MB (CK-2) 1.85 Troponin I < 0.012 NT-Pro-B Natriuret Pep Impressions: Chest X-Ray 05/07/19 19:18 IMPRESSION: Minimal bibasilar subpleural scarring. No consolidation or significant pleural effusion. Status: Imported from PACS Assessment and Plan - Diagnosis (1) Acute exacerbation of chronic obstructive pulmonary disease (COPD) Is this a current diagnosis for this admission?: Yes Plan: Unclear etiology Patient denies hx of seasonal allergies or recent ill contacts Possibly stemming from URI as patient endorses yellow/brown sputum Likely due to advancing lung disease and patient states she still smokes CXR benign but she endorses (+) productive cough with yellow/brown sputum, will treat empirically with doxycycline Sputum cultures ordered, have not been collected Supplemental oxygen via nasal cannula for SPO2>88% Scheduled and PRN nebulizer treatments Continue home dose Trelegy inhaler Scheduled IV Solu-Medrol Twice daily Mucinex (2) Acute and chronic respiratory failure with hypoxia Is this a current diagnosis for this admission?: Yes Plan: See plan as above (3) Chest pain Qualifiers: Chest pain type: unspecified Qualified Code(s): R07.9 - Chest pain, unspecified Is this a current diagnosis for this admission?: Yes Plan: Resolved Patient endorsed midsternal chest pressure, without radiation, beginning 24 hours prior to admission EKG shows LBBB, chronic Cardiac enzymes WNL, no longer trending CXR benign Chest pain likely related to persistent coughing. Does not appear to be cardiac in nature. Continue daily baby ASA Tylenol and Morphine for pain (4) CAD (coronary artery disease) Qualifiers: Coronary Disease-Associated Artery/Lesion type: [place] artery [place] vs. transplanted heart: [place] heart Associated angina: with unspecified angina Qualified Code(s): I25.119 - Atherosclerotic heart disease of [place] coronary artery with unspecified angina pectoris Is this a current diagnosis for this admission?: Yes Plan: [facility] CAD Continue aspirin and statin (5) Chronic diastolic CHF (congestive heart failure) Is this a current diagnosis for this admission?: Yes Plan: ECHO from is relatively normal Continue home dose CCB, aspirin and statin (6) Diabetes mellitus type 2 in obese Is this a current diagnosis for this admission?: Yes Plan: H diabetes type 2 Hemoglobin A1c 6.1% Accu-Cheks AC at bedtime Humalog sliding scale insulin Diabetic diet (7) HTN (hypertension) Qualifiers: Hypertension type: essential hypertension Qualified Code(s): I10 - Essential (primary) hypertension Is this a current diagnosis for this admission?: Yes Plan: [facility] HTN Blood pressure has been relatively well controlled since admission Continue home dose lisinopril Hydralazine IV as needed SBP>180 (8) Tobacco abuse Is this a current diagnosis for this admission?: Yes Plan: Patient counseled on the importance of smoking cessation The patient stated understanding, did not state that she wanted to quit Will offer nicotine patch - Time Time Spent with patient: 15-24 minutes Medications reviewed and adjusted accordingly: Yes Anticipated discharge: Home Within: within 48 hours, within 72 hours - Inpatient Certification Based on my medical assessment, after consideration of the patient's comorbidities, presenting symptoms, or acuity I expect that the services needed warrant INPATIENT care.: Yes I certify that my determination is in accordance with my understanding of Medicare's requirements for reasonable and necessary INPATIENT services [42 CFR 412.3e].: Yes Medical Necessity: Need For Continuous Telemetry Monitoring, Risk of Complication if Not Cared For in Hospital
[2019-05-08 15:38] LABS: CREATINE KINASE MB 2.02 ng/mL (<4.55)
[2019-05-08 15:41] LABS: TROPONIN I < 0.012 ng/mL
[2019-05-08] MEDS: ATORVASTATIN CALCIUM 10 MG TABLET PO SCH (21:14)
[2019-05-09] MEDS: IPRATROPIUM BROMIDE 0.02% NEB 0.5 MG/2.5 ML AMPUL NEB SCH ×2 (00:33→08:00)
[2019-05-09] MEDS: LEVALBUTEROL HCL NEB 1.25 MG/3 ML AMPUL NEB SCH ×2 (00:33→08:00)
[2019-05-09] MEDS: PANTOPRAZOLE SODIUM 40 MG TABLET.DR PO SCH ×2 (05:02→17:55)
[2019-05-09] MEDS: HEPARIN SOD (PORCINE) 5,000 UNIT/ML 1 ML SYRINGE SUBCUT SCH ×3 (05:03→21:39)
[2019-05-09] MEDS: ACETYLCYSTEINE 20% SOLN 800 MG/4 ML VIAL.NEB NEB SCH ×2 (08:03→19:52)
[2019-05-09] MEDS: BUDESONIDE NEB 0.5 MG/2 ML AMPUL NEB SCH ×2 (08:06→19:52)
[2019-05-09 10:22] LABS: ABSOLUTE MONOCYTES (AUTO) 0.3 10^3/uL (0.1-1.4); ABSOLUTE NEUT (AUTO) 14.2 10^3/uL (1.7-8.2); BASOPHILS % (AUTO) 0.1 % (0-2); EOSINOPHILS % (AUTO) 0.1 % (0-6); HEMOGLOBIN 10.8 g/dL (12.0-15.5); LYMPHOCYTES % (AUTO) 6.4 % (13-45); MEAN CORPUSCULAR HEMOGLOBIN 29.7 pg (27.0-33.4); MEAN CORPUSCULAR HGB CONC 31.7 g/dL (32.0-36.0); MEAN CORPUSCULAR VOLUME 94 fl (80-97); MONOCYTES % (AUTO) 2.2 % (3-13); PLATELET COUNT 173 10^3/uL (150-450); RED BLOOD COUNT 3.63 10^6/uL (3.72-5.28); RED CELL DISTRIBUTION WIDTH 14.1 % (11.5-14.0); SEGMENTED NEUTROPHILS % (AUTO) 91.2 % (42-78); TOTAL CELLS COUNTED % (AUTO) 100 %; WHITE BLOOD COUNT 15.5 10^3/uL (4.0-10.5)
[2019-05-09 10:47] LABS: ALANINE AMINOTRANSFERASE 23 U/L (9-52); ALBUMIN 3.7 g/dL (3.5-5.0); ALKALINE PHOSPHATASE 124 U/L (38-126); ANION GAP 6 (5-19); ASPARTATE AMINO TRANSFERASE 28 U/L (14-36); BILIRUBIN,DIRECT 0.3 mg/dL (0.0-0.4); BILIRUBIN,TOTAL 0.3 mg/dL (0.2-1.3); BLOOD UREA NITROGEN 29 mg/dL (7-20); CALCIUM 8.9 mg/dL (8.4-10.2); CARBON DIOXIDE 31 mmol/L (22-30); CHLORIDE 101 mmol/L (98-107); GLUCOSE 154 mg/dL (75-110); POTASSIUM 5.2 mmol/L (3.6-5.0); SODIUM 138.3 mmol/L (137-145); TOTAL PROTEIN 6.9 g/dL (6.3-8.2)
[2019-05-09] MEDS: METFORMIN HCL 500 MG TABLET PO SCH ×2 (12:23→17:54)
[2019-05-09] MEDS: FLUTICASONE/UMECLIDIN/VILANTER 100-62.5-25 MCG/DOSE IH SCH (13:13)
[2019-05-09] MEDS: GABAPENTIN 400 MG CAPSULE PO SCH ×2 (13:14→21:39)
[2019-05-09] MEDS: GUAIFENESIN 600 MG TABLET.SA PO SCH ×2 (13:14→21:39)
[2019-05-09] MEDS: LISINOPRIL 5 MG TABLET PO SCH (13:14)
[2019-05-09] MEDS: DOCUSATE SODIUM 100 MG CAPSULE PO SCH ×2 (13:14→17:54)
[2019-05-09] MEDS: DOXYCYCLINE HYCLATE 100 MG TABLET PO SCH (13:14)
[2019-05-09] MEDS: ASPIRIN 81 MG TABLET, ENT COATED PO SCH (13:14)
[2019-05-09] MEDS: IPRATROPIUM/ALBUTEROL 0.5-2.5 MG/3 ML AMPUL NEB SCH ×2 (15:14→19:52)
--- NOTE | 2019-05-09 16:19 | PDOC PROGRESS REPORT ---
Subjective Progress Note for:: 05/09/19 Subjective:: This is a 73-year-old female with a past medical history of COPD, CHF, CAD, history of DVT, asthma, and diabetes mellitus type 2 with shortness of breath. Patient was admitted for COPD exacerbation. Placed on BiPAP. No acute event overnight. This morning, patient is not in distress on encounter. She is saturating well on nasal cannula. She says that her shortn ess of breath has improved but she is not at her baseline yet. She says her cough is now unproductive. She is still on high high IV steroids with Solu- Medrol at 40 mg every 8. She does have wheezes on the bases. Reason For Visit: ACUTE EXACERBATION OF COPD Physical Exam Vital Signs: Temp Pulse Resp BP Pulse Ox 98.0 F 68 20 148/81 H 97 05/08/19 20:06 05/09/19 14:00 05/09/19 11:44 05/09/19 00:18 05/09/19 11:44 Intake & Output 05/08/19 05/09/19 05/10/19 06:59 06:59 06:59 Intake Total 1480 620 240 Output Total 500 Balance 980 620 240 Weight 182 lb 15.739 oz 186 lb 8.177 oz General appearance: PRESENT: no acute distress, well-developed, well-nourished Head exam: PRESENT: atraumatic, normocephalic Eye exam: PRESENT: conjunctiva pink, EOMI, PERRLA. ABSENT: scleral icterus Ear exam: PRESENT: normal external ear exam Mouth exam: PRESENT: moist, tongue midline Neck exam: ABSENT: carotid bruit, JVD, lymphadenopathy, thyromegaly Respiratory exam: PRESENT: wheezes. ABSENT: rales, rhonchi Cardiovascular exam: PRESENT: RRR. ABSENT: diastolic murmur, rubs, systolic murmur Pulses: PRESENT: normal dorsalis pedis pul GI/Abdominal exam: PRESENT: normal bowel sounds, soft. ABSENT: distended, guarding, mass, organolmegaly, rebound, tenderness Rectal exam: PRESENT: deferred Neurological exam: PRESENT: alert, awake, oriented to person, oriented to place, oriented to time, oriented to situation, CN II-XII grossly intact. ABSENT: motor sensory deficit Results Laboratory Results: 05/09/19 09:46 05/09/19 09:46 05/09/19 05/09/19 05/09/19 08:36 08:36 08:36 WBC Cancelled RBC Cancelled Hgb Cancelled Hct Cancelled MCV Cancelled MCH Cancelled MCHC Cancelled RDW Cancelled Plt Count Cancelled Seg Neutrophils % Cancelled Lymphocytes % Cancelled Monocytes % Cancelled Eosinophils % Cancelled Basophils % Cancelled Absolute Neutrophils Cancelled Absolute Lymphocytes Cancelled Absolute Monocytes Cancelled Absolute Eosinophils Cancelled Absolute Basophils Cancelled Sodium Cancelled Cancelled Potassium Cancelled Cancelled Chloride Cancelled Cancelled Carbon Dioxide Cancelled Cancelled Anion Gap Cancelled Cancelled BUN Cancelled Cancelled Creatinine Cancelled Cancelled Est GFR ( Amer) Cancelled Cancelled Est GFR (Non-Af Amer) Cancelled Cancelled Glucose Cancelled Cancelled Calcium Cancelled Cancelled Magnesium Cancelled Total Bilirubin Cancelled AST Cancelled ALT Cancelled Alkaline Phosphatase Cancelled Total Protein Cancelled Albumin Cancelled 05/09/19 05/09/19 09:46 09:46 WBC 15.5 H RBC 3.63 L Hgb 10.8 L Hct 34.0 L MCV 94 MCH 29.7 MCHC 31.7 L RDW 14.1 H Plt Count 173 Seg Neutrophils % 91.2 H Lymphocytes % 6.4 L Monocytes % 2.2 L Eosinophils % 0.1 Basophils % 0.1 Absolute Neutrophils 14.2 H Absolute Lymphocytes 1.0 Absolute Monocytes 0.3 Absolute Eosinophils 0.0 Absolute Basophils 0.0 Sodium 138.3 Potassium 5.2 H Chloride 101 Carbon Dioxide 31 H Anion Gap 6 BUN 29 H Creatinine 1.05 Est GFR ( Amer) > 60 Est GFR (Non-Af Amer) 51 L Glucose 154 H Calcium 8.9 Magnesium 2.1 Total Bilirubin 0.3 AST 28 ALT 23 Alkaline Phosphatase 124 Total Protein 6.9 Albumin 3.7 05/07/19 05/08/19 05/08/19 19:19 01:26 01:26 Creatine Kinase 46 CK-MB (CK-2) 1.80 Troponin I 0.017 0.029 NT-Pro-B Natriuret Pep 3190 H 05/08/19 05/08/19 05/08/19 07:36 07:36 14:16 Creatine Kinase 37 40 CK-MB (CK-2) 1.85 Troponin I < 0.012 NT-Pro-B Natriuret Pep 05/08/19 14:16 Creatine Kinase CK-MB (CK-2) 2.02 Troponin I < 0.012 NT-Pro-B Natriuret Pep Impressions: Chest X-Ray 05/07/19 19:18 IMPRESSION: Minimal bibasilar subpleural scarring. No consolidation or significant pleural effusion. Assessment and Plan - Diagnosis (1) Acute and chronic respiratory failure with hypoxia Is this a current diagnosis for this admission?: Yes Plan: Secondary to COPD exacerbation. Off BiPAP and is now saturating well on nasal cannula. (2) Acute exacerbation of chronic obstructive pulmonary disease (COPD) Is this a current diagnosis for this admission?: Yes Plan: Decrease IV steroids. Switch to Solu-Medrol 40 mg IV every 12. Switch doxycycline to azithromycin. (3) CAD (coronary artery disease) Qualifiers: Coronary Disease-Associated Artery/Lesion type: [place] artery [place] vs. transplanted heart: [place] heart Associated angina: with unspecified angina Qualified Code(s): I25.119 - Atherosclerotic heart disease of [place] coronary artery with unspecified angina pectoris Is this a current diagnosis for this admission?: Yes Plan: Stable. Continue aspirin and statin. (4) CKD (chronic kidney disease) stage 3, GFR 30-59 ml/min Is this a current diagnosis for this admission?: Yes Plan: Renal function at baseline. Avoid nephrotoxic agents. - Time Time Spent with patient: 15-24 minutes
[2019-05-09] MEDS: AZITHROMYCIN 250 MG TABLET PO SCH (17:54)
[2019-05-09] MEDS: ATORVASTATIN CALCIUM 10 MG TABLET PO SCH (21:40)
[2019-05-09] MEDS ORDERED: METHYLPREDNISOLONE INJ 40 MG/1 ML SDV IV SCH ×2 (22:00)
[2019-05-10] MEDS: IPRATROPIUM/ALBUTEROL 0.5-2.5 MG/3 ML AMPUL NEB SCH ×4 (02:30→19:39)
[2019-05-10 04:18] LABS: ABSOLUTE LYMPHOCYTES (AUTO) 1.1 10^3/uL (0.5-4.7); ABSOLUTE MONOCYTES (AUTO) 0.3 10^3/uL (0.1-1.4); ABSOLUTE NEUT (AUTO) 13.1 10^3/uL (1.7-8.2); BASOPHILS % (AUTO) 0.1 % (0-2); EOSINOPHILS % (AUTO) 0.1 % (0-6); HEMATOCRIT 29.9 % (36.0-47.0); HEMOGLOBIN 9.8 g/dL (12.0-15.5); LYMPHOCYTES % (AUTO) 7.7 % (13-45); MEAN CORPUSCULAR HEMOGLOBIN 30.2 pg (27.0-33.4); MEAN CORPUSCULAR HGB CONC 32.6 g/dL (32.0-36.0); MEAN CORPUSCULAR VOLUME 93 fl (80-97); MONOCYTES % (AUTO) 1.8 % (3-13); PLATELET COUNT 176 10^3/uL (150-450); RED BLOOD COUNT 3.23 10^6/uL (3.72-5.28); RED CELL DISTRIBUTION WIDTH 14.2 % (11.5-14.0); SEGMENTED NEUTROPHILS % (AUTO) 90.3 % (42-78); TOTAL CELLS COUNTED % (AUTO) 100 %; WHITE BLOOD COUNT 14.5 10^3/uL (4.0-10.5)
[2019-05-10 04:38] LABS: ANION GAP 8 (5-19); BLOOD UREA NITROGEN 40 mg/dL (7-20); CARBON DIOXIDE 27 mmol/L (22-30); CHLORIDE 103 mmol/L (98-107); GLUCOSE 199 mg/dL (75-110); POTASSIUM 5.5 mmol/L (3.6-5.0); SODIUM 137.6 mmol/L (137-145)
[2019-05-10] MEDS: PANTOPRAZOLE SODIUM 40 MG TABLET.DR PO SCH ×2 (06:02→19:00)
[2019-05-10] MEDS: HEPARIN SOD (PORCINE) 5,000 UNIT/ML 1 ML SYRINGE SUBCUT SCH ×3 (06:07→22:04)
[2019-05-10] MEDS: ACETYLCYSTEINE 20% SOLN 800 MG/4 ML VIAL.NEB NEB SCH ×2 (08:41→19:39)
[2019-05-10] MEDS: BUDESONIDE NEB 0.5 MG/2 ML AMPUL NEB SCH ×2 (08:41→19:39)
[2019-05-10] MEDS ORDERED: NORMAL SALINE 1000 ML 1,000 ML IV PRN (11:05)
[2019-05-10] MEDS: GABAPENTIN 400 MG CAPSULE PO SCH ×2 (12:25→22:04)
[2019-05-10] MEDS: LISINOPRIL 5 MG TABLET PO SCH (12:25)
[2019-05-10] MEDS: GUAIFENESIN 600 MG TABLET.SA PO SCH ×2 (12:25→22:04)
[2019-05-10] MEDS: SODIUM POLYSTYRENE SULFONATE 15 GM/60 ML PO ONE ×2 (12:26→19:00)
[2019-05-10] MEDS: ASPIRIN 81 MG TABLET, ENT COATED PO SCH (12:26)
[2019-05-10] MEDS: FLUTICASONE/UMECLIDIN/VILANTER 100-62.5-25 MCG/DOSE IH SCH (12:27)
[2019-05-10] MEDS: DOCUSATE SODIUM 100 MG CAPSULE PO SCH ×2 (12:27→18:59)
[2019-05-10] MEDS: METFORMIN HCL 500 MG TABLET PO SCH ×2 (12:27→18:59)
[2019-05-10] MEDS: PREDNISONE 20 MG TABLET PO SCH ×2 (12:31→19:00)
--- NOTE | 2019-05-10 14:34 | PDOC PROGRESS REPORT ---
Subjective Progress Note for:: 05/10/19 Subjective:: This is a 73-year-old female with a past medical history of COPD, CHF, CAD, history of DVT, asthma, and diabetes mellitus type 2 with shortness of breath. Patient was admitted for COPD exacerbation and was placed on BiPAP. 05/09: This morning, patient is not in distress on encounter. She is saturating well on nasal cannula. She says that her shortness of breath has improved but she is not at her baseline yet. She says her cough is now unproductive. She is still on high high IV steroids with Solu-Medrol at 40 mg every 8. She does have wheezes on the bases. 05/10: No acute event overnight. She says she continues to feel better and is getting close to her baseline. Wheezes continue to improve. Her potassium has significantly increased today and creatinine is also slightly elevated today. Reason For Visit: ACUTE EXACERBATION OF COPD Physical Exam Vital Signs: Temp Pulse Resp BP Pulse Ox 98.4 F 67 20 150/90 H 94 05/10/19 03:36 05/10/19 08:42 05/10/19 08:42 05/10/19 03:36 05/10/19 08:42 Intake & Output 05/09/19 05/10/19 05/11/19 06:59 06:59 06:59 Intake Total 620 920 Balance 620 920 Weight 186 lb 8.177 oz 186 lb 8.177 oz General appearance: PRESENT: no acute distress, well-developed, well-nourished Head exam: PRESENT: atraumatic, normocephalic Eye exam: PRESENT: conjunctiva pink, EOMI, PERRLA. ABSENT: scleral icterus Ear exam: PRESENT: normal external ear exam Neck exam: ABSENT: carotid bruit, JVD, lymphadenopathy, thyromegaly Respiratory exam: PRESENT: rhonchi, wheezes. ABSENT: rales Cardiovascular exam: PRESENT: RRR. ABSENT: diastolic murmur, rubs, systolic murmur Pulses: PRESENT: normal dorsalis pedis pul GI/Abdominal exam: PRESENT: normal bowel sounds, soft. ABSENT: distended, guarding, mass, organolmegaly, rebound, tenderness Rectal exam: PRESENT: deferred Neurological exam: PRESENT: alert, awake, oriented to person, oriented to place, oriented to time, oriented to situation, CN II-XII grossly intact. ABSENT: motor sensory deficit Results Laboratory Results: 05/10/19 03:57 05/10/19 03:57 05/10/19 05/10/19 03:57 03:57 WBC 14.5 H RBC 3.23 L Hgb 9.8 L Hct 29.9 L MCV 93 MCH 30.2 MCHC 32.6 RDW 14.2 H Plt Count 176 Seg Neutrophils % 90.3 H Lymphocytes % 7.7 L Monocytes % 1.8 L Eosinophils % 0.1 Basophils % 0.1 Absolute Neutrophils 13.1 H Absolute Lymphocytes 1.1 Absolute Monocytes 0.3 Absolute Eosinophils 0.0 Absolute Basophils 0.0 Sodium 137.6 Potassium 5.5 H Chloride 103 Carbon Dioxide 27 Anion Gap 8 BUN 40 H Creatinine 1.28 H Est GFR ( Amer) 49 L Est GFR (Non-Af Amer) 41 L Glucose 199 H Calcium 9.0 Magnesium 1.7 05/08/19 20:31 Sputum Gram Stain - Final 05/08/19 20:31 Sputum Sputum Culture - Final NORMAL CHRIS 05/07/19 05/08/19 05/08/19 19:19 01:26 01:26 Creatine Kinase 46 CK-MB (CK-2) 1.80 Troponin I 0.017 0.029 NT-Pro-B Natriuret Pep 3190 H 05/08/19 05/08/19 05/08/19 07:36 07:36 14:16 Creatine Kinase 37 40 CK-MB (CK-2) 1.85 Troponin I < 0.012 NT-Pro-B Natriuret Pep 05/08/19 14:16 Creatine Kinase CK-MB (CK-2) 2.02 Troponin I < 0.012 NT-Pro-B Natriuret Pep Impressions: Chest X-Ray 05/07/19 19:18 IMPRESSION: Minimal bibasilar subpleural scarring. No consolidation or significant pleural effusion. Assessment and Plan - Diagnosis (1) Acute and chronic respiratory failure with hypoxia Is this a current diagnosis for this admission?: Yes Plan: Improving. BiPAP at night. Currently saturating well on nasal cannula. (2) Acute exacerbation of chronic obstructive pulmonary disease (COPD) Is this a current diagnosis for this admission?: Yes Plan: 05/09: Decrease IV steroids. Switch to Solu-Medrol 40 mg IV every 12. Switch doxycycline to azithromycin. (3) Hyperkalemia Is this a current diagnosis for this admission?: Yes Plan: Likely related to developing ANASTASIA. Will give a dose of Kayexalate. (4) ANASTASIA (acute kidney injury) Is this a current diagnosis for this admission?: Yes Plan: Will start patient on normal saline. Repeat BMP tomorrow morning. (5) CAD (coronary artery disease) Qualifiers: Coronary Disease-Associated Artery/Lesion type: [place] artery [place] vs. transplanted heart: [place] heart Associated angina: with unspecified angina Qualified Code(s): I25.119 - Atherosclerotic heart disease of [place] coronary artery with unspecified angina pectoris Is this a current diagnosis for this admission?: Yes Plan: Stable. Continue aspirin and statin. (6) CKD (chronic kidney disease) stage 3, GFR 30-59 ml/min Is this a current diagnosis for this admission?: Yes Plan: Avoid nephrotoxic agents. (7) Hypomagnesemia Is this a current diagnosis for this admission?: Yes Plan: Resolved after IV replacement. (8) Chronic anemia Is this a current diagnosis for this admission?: Yes Plan: Hb stable. Likely fro chronic inflammation/CKD. - Time Time Spent with patient: 25-34 minutes
[2019-05-10] MEDS: AZITHROMYCIN 250 MG TABLET PO SCH (19:00)
[2019-05-10] MEDS: ATORVASTATIN CALCIUM 10 MG TABLET PO SCH (22:04)
[2019-05-10] MEDS: INSULIN REG, HUMAN 100 UNIT/ML 3 ML VIAL (PYX) SUBCUT PRN (22:05)
[2019-05-11 00:13] VITALS: BP 130/64
[2019-05-11] MEDS: IPRATROPIUM/ALBUTEROL 0.5-2.5 MG/3 ML AMPUL NEB SCH ×2 (01:58→07:52)
[2019-05-11 05:24] LABS: ANION GAP 8 (5-19); BLOOD UREA NITROGEN 38 mg/dL (7-20); CALCIUM 8.6 mg/dL (8.4-10.2); CARBON DIOXIDE 28 mmol/L (22-30); CHLORIDE 101 mmol/L (98-107); GLUCOSE 207 mg/dL (75-110); POTASSIUM 4.7 mmol/L (3.6-5.0); SODIUM 136.7 mmol/L (137-145)
[2019-05-11] MEDS: HEPARIN SOD (PORCINE) 5,000 UNIT/ML 1 ML SYRINGE SUBCUT SCH (05:42)
[2019-05-11] MEDS: PANTOPRAZOLE SODIUM 40 MG TABLET.DR PO SCH (06:41)
[2019-05-11] MEDS: ACETYLCYSTEINE 20% SOLN 800 MG/4 ML VIAL.NEB NEB SCH (07:52)
[2019-05-11] MEDS: BUDESONIDE NEB 0.5 MG/2 ML AMPUL NEB SCH (07:52)
[2019-05-11] MEDS: FLUTICASONE/UMECLIDIN/VILANTER 100-62.5-25 MCG/DOSE IH SCH (09:22)
[2019-05-11] MEDS: GABAPENTIN 400 MG CAPSULE PO SCH (09:24)
[2019-05-11] MEDS: METFORMIN HCL 500 MG TABLET PO SCH (09:24)
[2019-05-11] MEDS: DOCUSATE SODIUM 100 MG CAPSULE PO SCH (09:24)
[2019-05-11] MEDS: PREDNISONE 20 MG TABLET PO SCH (09:24)
[2019-05-11] MEDS: GUAIFENESIN 600 MG TABLET.SA PO SCH (09:25)
[2019-05-11] MEDS: ASPIRIN 81 MG TABLET, ENT COATED PO SCH (09:25)
[2019-05-11] MEDS: LISINOPRIL 5 MG TABLET PO SCH (09:25)
--- NOTE | 2019-05-12 18:18 | PDOC DISCHARGE SUMMARY ---
General - Admit/Disc Date/PCP Admission Date/Primary Care Provider: 05/07/19 22:26 STEVE SCANLON Discharge Date: 05/11/19 - Discharge Diagnosis (1) Acute and chronic respiratory failure with hypoxia Is this a current diagnosis for this admission?: Yes (2) Acute exacerbation of chronic obstructive pulmonary disease (COPD) Is this a current diagnosis for this admission?: Yes (3) Hyperkalemia Is this a current diagnosis for this admission?: Yes (4) ANASTASIA (acute kidney injury) Is this a current diagnosis for this admission?: Yes (5) CAD (coronary artery disease) Is this a current diagnosis for this admission?: Yes (6) CKD (chronic kidney disease) stage 3, GFR 30-59 ml/min Is this a current diagnosis for this admission?: Yes - Additional Information Resuscitation Status: Full Code Discharge Diet: Cardiac Discharge Activity: Balance Activity w/Rest Prescriptions: Fluticasone/Umeclidin/Vilanter [Trelegy 100-62.5-25 Mcg Ellipta 14 Dose/Dpi] 1 puff IH DAILY #1 inhaler Prednisone [Deltasone 20 mg Tablet] 20 mg PO BID 5 Days #10 tablet Home Medications: Albuterol Sulfate [Proair HFA Inhalation Aerosol 8.5 gm MDI] 2 puff IH Q4HP PRN 05/08/19 Aspirin [Adult Low Dose Aspirin EC] 81 mg PO DAILY 05/08/19 Atorvastatin Calcium [Lipitor 10 mg Tablet] 10 mg PO QHS 05/08/19 Gabapentin [Neurontin 400 mg Capsule] 400 mg PO Q12 05/08/19 Hydrocodone/Acetaminophen [[place] 5-325 mg Tablet] 1 tab PO Q12HP PRN 05/08/19 Lisinopril [Zestril] 5 mg PO DAILY 05/08/19 Metformin HCl [Glucophage 500 mg Tablet] 500 mg PO BID 05/08/19 Fluticasone/Umeclidin/Vilanter [Trelegy 100-62.5-25 Mcg Ellipta 14 Dose/Dpi] 1 puff IH DAILY #1 inhaler 05/11/19 Prednisone [Deltasone 20 mg Tablet] 20 mg PO BID 5 Days #10 tablet 05/11/19 History of Present Illness History of Present Illness: Admitting hospitalist's H&P: GAVI PEDRO is a 73 year old female presented to the emergency room with a 3-day history of dyspnea. Patient admits progressively worsening dyspnea over the last 3 days with her dyspnea becoming suddenly severe in the afternoon of her day of admission. She was unable to alleviate her dyspnea by using her inhaler treatments and supplemental oxygen at home and thus she summoned the EMS. Her dyspnea was made worse by exertion was accompanied by a constant, moderately intense, pressure-like, midsternal chest pain without radiation beginning this evening prior to her admission. She additionally admits an associated orthopnea and a slightly worsened chronic cough productive of yellow-brown sputum over the last 2 to 3 days. During the of her acutely worse dyspnea this afternoon she admits associated severe diaphoresis, a moderately severe headache and severe cramping of her hands and feet. She admits prior similar episodes on numerous occasions related to her COPD, pneumonia and congestive heart failure. She has not identified any additional aggravating or ameliorating factors for her cu rrent dyspnea. In the emergency room she was noted to be in severe respiratory distress with increased work of breathing. She was immediately placed on BiPAP with significant improvement. She was given nebulizer breathing treatments and intravenous Solu-Medrol. She was additionally started on IV antibiotic therapy of Rocephin and azithromycin. Hospital Course Hospital Course: This is a 73-year-old female with a past medical history of COPD, CHF, CAD, history of DVT, asthma, and diabetes mellitus type 2 with shortness of breath. Patient was admitted for COPD exacerbation and was placed on BiPAP. She was initially started on high IV dose of steroids, scheduled breathing treatments and antibiotics. Patient slowly but gradually improved. She did return to her baseline. She will be discharged on 5 more days of prednisone. Physical Exam Vital Signs: Temp Pulse Resp BP Pulse Ox 98.4 F 64 18 130/64 H 96 05/11/19 11:16 05/11/19 11:16 05/11/19 11:16 05/11/19 11:16 05/11/19 11:16 Intake & Output 05/11/19 05/12/19 05/13/19 06:59 06:59 06:59 Intake Total 1660 Balance 1660 Weight 186 lb 8.177 oz General appearance: PRESENT: no acute distress, well-developed, well-nourished Head exam: PRESENT: atraumatic, normocephalic Eye exam: PRESENT: conjunctiva pink, EOMI, PERRLA. ABSENT: scleral icterus Ear exam: PRESENT: normal external ear exam Mouth exam: PRESENT: moist, tongue midline Neck exam: ABSENT: carotid bruit, JVD, lymphadenopathy, thyromegaly Respiratory exam: PRESENT: clear to auscultation chago. ABSENT: rales, rhonchi, wheezes Cardiovascular exam: PRESENT: RRR. ABSENT: diastolic murmur, rubs, systolic murmur Pulses: PRESENT: normal dorsalis pedis pul GI/Abdominal exam: PRESENT: normal bowel sounds, soft. ABSENT: distended, guarding, mass, organolmegaly, rebound, tenderness Rectal exam: PRESENT: deferred Extremities exam: PRESENT: +1 edema Neurological exam: PRESENT: alert, awake, oriented to person, oriented to place, oriented to time, oriented to situation, CN II-XII grossly intact. ABSENT: motor sensory deficit Results Laboratory Results: 05/10/19 03:57 05/11/19 04:31 05/07/19 05/08/19 05/08/19 19:19 01:26 01:26 Creatine Kinase 46 CK-MB (CK-2) 1.80 Troponin I 0.017 0.029 NT-Pro-B Natriuret Pep 3190 H 05/08/19 05/08/19 05/08/19 07:36 07:36 14:16 Creatine Kinase 37 40 CK-MB (CK-2) 1.85 Troponin I < 0.012 NT-Pro-B Natriuret Pep 05/08/19 14:16 Creatine Kinase CK-MB (CK-2) 2.02 Troponin I < 0.012 NT-Pro-B Natriuret Pep Impressions: Chest X-Ray 05/07/19 19:18 IMPRESSION: Minimal bibasilar subpleural scarring. No consolidation or si gnificant pleural effusion. Qualifiers - * PATIENT BEING DISCHARGED WITH ANY OF THE FOLLOWING DIAGNOSIS: No Acute Heart Failure - Is this a Heart Failure Patient?: No
== END 2019-05-11 13:00 | disposition home or self-care (01) | DRG 189 ==
LOC: ER 18:59 → EH 22:26 → 5 05-08 00:17
PROVIDERS: ADMIT Emergency Medicine; ATTEND Emergency Medicine
PROC: 5A09457 Assistance with Respiratory Ventilation, 24-96 Consecutive Hours, Continuous Positive Airway Pressure (ICD-10-PCS; principal; 2019-05-07)
DX: J96.21 Acute and chronic respiratory failure with hypoxia (principal); J44.1 Chronic obstructive pulmonary disease with (acute) exacerbation; I50.32 Chronic diastolic (congestive) heart failure; N17.9 Acute kidney failure, unspecified; I13.0 Hypertensive heart and chronic kidney disease with heart failure and stage 1 through stage 4 chronic kidney disease, or unspecified chronic kidney disease; E87.5 Hyperkalemia; E83.42 Hypomagnesemia; N18.3 Chronic kidney disease, stage 3 (moderate); E11.22 Type 2 diabetes mellitus with diabetic chronic kidney disease; I25.10 Atherosclerotic heart disease of native coronary artery without angina pectoris; F17.210 Nicotine dependence, cigarettes, uncomplicated; Z86.718 Personal history of other venous thrombosis and embolism; Z79.84 Long term (current) use of oral hypoglycemic drugs; Z79.82 Long term (current) use of aspirin; Z79.891 Long term (current) use of opiate analgesic; Z79.51 Long term (current) use of inhaled steroids; Z79.899 Other long term (current) drug therapy
CPT/HCPCS: 36415; 36600; 71045; 80048; 80053; 80061; 81001; 82550; 82553; 82803; 82962; 83036; 83605; 83735; 83880; 84439; 84443; 84481; 84484; 85025; 87040; 87070; 87205; 93005; 93010; 94640; 94660; 96361; 96365; 96375; 99291; J0456; J0696; J1644; J1815; J2920; J2930; J3475; J3490; J7120; J7512; J7614; J7620

== ENCOUNTER 2019-05-27 18:58 | Inpatient (IN) | payer MEDICARE ==
--- NOTE | 2019-05-27 19:22 | EKG REPORT ---
SEVERITY:- ABNORMAL ECG - SINUS RHYTHM LEFT BUNDLE BRANCH BLOCK : Confirmed by: Francisca Marin 27-May-2019 19:22:11
[2019-05-27 19:29] LABS: ABSOLUTE EOSINOPHILS # (AUTO) 0.1 10^3/uL (0.0-0.6); ABSOLUTE LYMPHOCYTES (AUTO) 1.9 10^3/uL (0.5-4.7); ABSOLUTE MONOCYTES (AUTO) 0.6 10^3/uL (0.1-1.4); ABSOLUTE NEUT (AUTO) 5.5 10^3/uL (1.7-8.2); BASOPHILS % (AUTO) 0.4 % (0-2); EOSINOPHILS % (AUTO) 1.4 % (0-6); HEMATOCRIT 32.8 % (36.0-47.0); HEMOGLOBIN 11.1 g/dL (12.0-15.5); LYMPHOCYTES % (AUTO) 23.4 % (13-45); MEAN CORPUSCULAR HEMOGLOBIN 31.5 pg (27.0-33.4); MEAN CORPUSCULAR VOLUME 93 fl (80-97); MONOCYTES % (AUTO) 6.9 % (3-13); PLATELET COUNT 181 10^3/uL (150-450); RED BLOOD COUNT 3.54 10^6/uL (3.72-5.28); RED CELL DISTRIBUTION WIDTH 14.5 % (11.5-14.0); SEGMENTED NEUTROPHILS % (AUTO) 67.9 % (42-78); TOTAL CELLS COUNTED % (AUTO) 100 %; WHITE BLOOD COUNT 8.1 10^3/uL (4.0-10.5)
--- NOTE | 2019-05-27 19:40 | RADIOLOGY REPORT (SQ) ---
EXAM DESCRIPTION: CHEST SINGLE VIEW COMPLETED DATE/TIME: 05/27/2019 7:22 pm REASON FOR STUDY: Shortness of breath, Hypoxia, Productive Cough COMPARISON: 05/07/2019. EXAM PARAMETERS: NUMBER OF VIEWS: One view. TECHNIQUE: Single frontal radiographic view of the chest acquired. RADIATION DOSE: NA LIMITATIONS: None. FINDINGS: LUNGS AND PLEURA: Chronic bibasilar scarring. MEDIASTINUM AND HILAR STRUCTURES: No masses. Contour normal. HEART AND VASCULAR STRUCTURES: The heart is normal with aortic atherosclerosis. BONES: No acute findings. HARDWARE: None in the chest. OTHER: No other significant finding. IMPRESSION: NO ACUTE DISEASE. TECHNICAL DOCUMENTATION: JOB ID: [id number] [employer]- All Rights Reserved Reading location - IP/workstation name: [email or web address]
[2019-05-27 19:47] LABS: ALANINE AMINOTRANSFERASE 14 U/L (9-52); ALBUMIN 3.6 g/dL (3.5-5.0); ALKALINE PHOSPHATASE 127 U/L (38-126); ANION GAP 9 (5-19); ASPARTATE AMINO TRANSFERASE 21 U/L (14-36); BILIRUBIN,DIRECT 0.3 mg/dL (0.0-0.4); BILIRUBIN,TOTAL 0.3 mg/dL (0.2-1.3); BLOOD UREA NITROGEN 18 mg/dL (7-20); CARBON DIOXIDE 28 mmol/L (22-30); CHLORIDE 103 mmol/L (98-107); GLUCOSE 166 mg/dL (75-110); POTASSIUM 4.4 mmol/L (3.6-5.0); SODIUM 139.7 mmol/L (137-145); TOTAL PROTEIN 6.3 g/dL (6.3-8.2)
[2019-05-27] MEDS ORDERED: METHYLPREDNISOLONE INJ 125 MG/2 ML SDV IV ONE (20:10)
[2019-05-27] MEDS ORDERED: IPRATROPIUM/ALBUTEROL 0.5-2.5 MG/3 ML AMPUL NEB ONE (20:10)
[2019-05-27] MEDS ORDERED: LEVOFLOXACIN 750 MG/D5W RTU 750 MG/150 ML RTUPB IV ONE (20:11)
--- NOTE | 2019-05-27 20:12 | ER Document Report ---
ED Respiratory Problem - General Chief Complaint: Shortness Of Breath Stated Complaint: DIFFICULTY BREATHING Time Seen by Provider: 05/27/19 20:00 Mode of Arrival: Medic Information source: Patient, Relative TRAVEL OUTSIDE OF THE [place] IN LAST 30 DAYS: No - HPI Patient complains to provider of: Chest pain, COPD, Cough, Short of breath Onset: Just prior to arrival Duration: Continuous, Worse/persistent Quality of pain: No pain Severity: None Pain Level: Denies Context: Hx CHF, Hx COPD Short of Breath: Moderate Cough: Nonproductive Sputum amount: None At home treatment: Oxygen EMS treatments: Oxygen Associated symptoms: Congestion, Cough Similar symptoms previously: Yes - Related Data Allergies/Adverse Reactions: ibuprofen [From Motrin] Allergy (Intermediate, Verified 05/27/19 21:06) RASH/UTICARTIA Past Medical History - Social History Smoking Status: Unknown if Ever Smoked Family History: COPD, Hypertension Patient has suicidal ideation: No Patient has homicidal ideation: No - Past Medical History Cardiac Medical History: Reports: Hx Congestive Heart Failure, Hx Coronary Artery Disease, Hx DVT, Hx Hypertension Denies: Hx Atrial Fibrillation, Hx Heart Attack, Hx Heart Murmur Pulmonary Medical History: Reports: Hx Asthma, Hx COPD, Hx Pneumonia Denies: Hx Bronchitis, Hx Respiratory Failure, Hx Sleep Apnea, Hx Tuberculosis Neurological Medical History: Denies: Hx Cerebrovascular Accident, Hx Seizures Endocrine Medical History: Reports: Hx Diabetes Mellitus Type 2. Denies: Hx Diabetes Mellitus Type 1, Hx Hyperthyroidism, Hx Hypothyroidism Renal/ Medical History: Reports: Hx Renal Insufficiency. Denies: Hx Peritoneal Dialysis GI Medical History: Reports: Hx Diverticulitis, Hx Gastroesophageal Reflux Disease. Denies: Hx Cirrhosis, Hx Crohn's Disease, Hx Hepatitis, Hx Hiatal Hernia, Hx Pancreatitis, Hx Ulcer - ?, Hx Ulcerative Colitis Musculoskeletal Medical History: Reports Hx Arthritis, Denies Hx Gout, Denies Hx Systemic Lupus Erythematosus Skin Medical History: Denies Hx Eczema, Denies Hx Psoriasis Psychiatric Medical History: Denies: Hx Depression Traumatic Medical History: Reports: Hx Fractures - several broken ribs Infectious Medical History: Denies: Hx Hepatitis Past Surgical History: Reports: Hx Appendectomy, Hx Cholecystectomy, Hx Herniorrhaphy, Hx Hysterectomy, Hx Orthopedic Surgery - rotator cuff. Denies: Hx Mastectomy, Hx Open Heart Surgery, Hx Pacemaker - Immunizations Immunizations up to date: Yes Hx Diphtheria, Pertussis, Tetanus Vaccination: No Hx Pneumococcal Vaccination: 08/30/14 Review of Systems - Review of Systems Constitutional: No symptoms reported EENT: No symptoms reported Cardiovascular: No symptoms reported Respiratory: Cough, Short of breath Gastrointestinal: No symptoms reported Genitourinary: No symptoms reported Female Genitourinary: No symptoms reported Musculoskeletal: No symptoms reported Skin: No symptoms reported Hematologic/Lymphatic: No symptoms reported Neurological/Psychological: No symptoms reported -: Yes All other systems reviewed and negative Physical Exam - Vital signs Vitals: Temp Pulse Resp BP Pulse Ox 98.5 F 86 24 H 139/84 H 83 L 05/27/19 19:11 05/27/19 19:11 05/27/19 19:11 05/27/19 19:11 05/27/19 19:11 Interpretation: Normal - General General appearance: Appears well, Alert - HEENT Head: Normocephalic, Atraumatic Eyes: Normal Pupils: PERRL - Respiratory Respiratory status: No respiratory distress Chest status: Nontender Breath sounds: Nonproductive cough, Wheezing Chest palpation: Normal - Cardiovascular Rhythm: Regular Heart sounds: Normal auscultation Murmur: No - Abdominal Inspection: Normal Distension: No distension Bowel sounds: Normal Tenderness: Nontender Organomegaly: No organomegaly - Back Back: Normal, Nontender - Extremities General upper extremity: Normal inspection, Nontender, Normal color, Normal ROM, Normal temperature General lower extremity: Normal inspection, Nontender, Normal color, Normal ROM, Normal temperature, Normal weight bearing. No: Mateus's sign - Neurological Neuro grossly intact: Yes Cognition: Normal Orientation: AAOx4 Metter Coma Scale Eye Opening: Spontaneous Eve Coma Scale Verbal: Oriented Eve Coma Scale Motor: Obeys Commands Metter Coma Scale Total: 15 Speech: Normal Motor strength normal: LUE, RUE, LLE, RLE Sensory: Normal - Psychological Associated symptoms: Normal affect, Normal mood - Skin Skin Temperature: Warm Skin Moisture: Dry Skin Color: Normal Course - Vital Signs Vital signs: Temp Pulse Resp BP Pulse Ox 98.5 F 86 23 H 105/82 92 05/27/19 19:11 05/27/19 19:11 05/27/19 23:01 05/27/19 23:01 05/27/19 23:01 - Laboratory Result Diagrams: 05/27/19 19:05 05/27/19 19:05 Laboratory results interpreted by me: 05/27/19 05/27/19 05/27/19 19:05 19:05 19:05 RBC 3.54 L Hgb 11.1 L Hct 32.8 L RDW 14.5 H D-Dimer 0.77 H Est GFR (Non-Af Amer) 51 L Glucose 166 H Magnesium Alkaline Phosphatase 127 H NT-Pro-B Natriuret Pep Urine Protein Urine Glucose (UA) 05/27/19 05/27/19 05/27/19 19:05 19:05 23:20 RBC Hgb Hct RDW D-Dimer Est GFR (Non-Af Amer) Glucose Magnesium 1.2 L* Alkaline Phosphatase NT-Pro-B Natriuret Pep 1620 H Urine Protein 30 H Urine Glucose (UA) 50 H - Diagnostic Test Radiology reviewed: Reports reviewed - EKG Interpretation by Me EKG shows normal: Sinus rhythm Rate: Normal Rhythm: NSR [place]/QRS: LBBB When compared to previous EKG there are: No significant change Additional EKG results interpreted by me: 05/28/19 00:00 EKG is unchanged from the previous EKG on May 08, 2019. Old left bundle branch block. No STEMI. - Transfer of Care Notes: 05/27/19 23:55 Patient will be admitted by Dr. Bartlett for further evaluation and management. Discharge - Discharge Clinical Impression: COPD with acute exacerbation Congestive heart failure Qualifiers: Heart failure type: unspecified Heart failure chronicity: chronic Qualified Code(s): I50.9 - Heart failure, unspecified Condition: Stable Disposition: ADMITTED INPATIENT Admitting Provider: Dhruv (Hospitalist) Unit Admitted: Telemetry
[2019-05-27 20:43] LABS: LIPASE 133.8 U/L (23-300)
[2019-05-27 20:56] LABS: CREATINE KINASE MB 1.25 ng/mL (<4.55); NT PRO BNP 1620 pg/mL (5-900)
[2019-05-27 20:57] LABS: TROPONIN I < 0.012 ng/mL
--- NOTE | 2019-05-27 22:37 | RADIOLOGY REPORT (SQ) ---
EXAM DESCRIPTION: [facility]: CT CHEST ANGIOGRAPHY WITHOUT THEN WITH IV CONTRAST CLINICAL HISTORY: 73 years Female; Shortness of breath TECHNIQUE: CT angiogram of the chest using intravenous contrast.. MIP reconstructions were performed. All CT scans at this facility use dose modulation, iterative reconstruction, and/or weight based dosing when appropriate to reduce radiation dose to as low as reasonably achievable. COMPARISON: 02/27/2019 FINDINGS: Chest: No filling defects in the central pulmonary arteries. Scattered lucencies as on prior exam, typical for emphysema. 9 mm right upper lobe noncalcified nodule has not changed. No focal acute infiltrates. No pneumothorax or pleural effusion. Aorta: Moderate mixed density plaque. No aneurysm or dissection. Coronary artery calcifications are again noted. No pericardial effusion. Multiple borderline mediastinal lymph nodes are unchanged. IMPRESSION: 1. No CT evidence for pulmonary embolism. 2. No acute pulmonary findings. 3. Unchanged right upper lobe nodule 4. Emphysema and atherosclerosis as on prior exam
[2019-05-27] MEDS ORDERED: MAG HYDROX/AL HYDROX/SIMETH SUSP 30 ML UDCUP PO PRN (22:51)
[2019-05-27] MEDS ORDERED: IPRATROPIUM/ALBUTEROL 0.5-2.5 MG/3 ML AMPUL NEB PRN (22:55)
[2019-05-27] MEDS ORDERED: POTASSIUM CHLORIDE 10 MEQ CAPSULE.ER PO ONE (23:00)
[2019-05-27] MEDS ORDERED: NITROGLYCERIN 5 MG (0.2 MG/HR) PATCH.TD24 TD ONE (23:00)
[2019-05-27] MEDS ORDERED: FUROSEMIDE INJ/PF 20 MG/2 ML SDV IV ONE (23:00)
[2019-05-27] MEDS: IPRATROPIUM/ALBUTEROL 0.5-2.5 MG/3 ML AMPUL NEB SCH (23:37)
[2019-05-28 01:26] LABS: APPEARANCE,URINE CLEAR; BILIRUBIN,URINE NEGATIVE (NEGATIVE); COLOR,URINE YELLOW; GLUCOSE, URINE 50 mg/dL (NEGATIVE); KETONES,URINE NEGATIVE (NEGATIVE); PROTEIN,URINE 30 mg/dL (NEGATIVE); URINE SPECIFIC GRAVITY 1.039; UROBILINOGEN,URINE NEGATIVE mg/dL (<2.0)
[2019-05-28 01:27] LABS: LEUKOCYTE ESTERASE,URINE NEGATIVE (NEGATIVE); NITRITE,URINE NEGATIVE (NEGATIVE)
[2019-05-28] MEDS: HYDROCODONE/ACETAMINOPHEN 5-325 MG TABLET PO PRN ×2 (03:08→15:21)
[2019-05-28] MEDS: MAGNESIUM SULFATE 1 GM/D5W 100 ML IV SCH ×2 (03:08→04:33)
[2019-05-28 04:16] LABS: ABSOLUTE LYMPHOCYTES (AUTO) 0.4 10^3/uL (0.5-4.7); ABSOLUTE NEUT (AUTO) 5.6 10^3/uL (1.7-8.2); BASOPHILS % (AUTO) 0.3 % (0-2); EOSINOPHILS % (AUTO) 0.1 % (0-6); HEMATOCRIT 33.1 % (36.0-47.0); HEMOGLOBIN 10.7 g/dL (12.0-15.5); LYMPHOCYTES % (AUTO) 6.3 % (13-45); MEAN CORPUSCULAR HEMOGLOBIN 30.1 pg (27.0-33.4); MEAN CORPUSCULAR HGB CONC 32.3 g/dL (32.0-36.0); MEAN CORPUSCULAR VOLUME 93 fl (80-97); MONOCYTES % (AUTO) 0.6 % (3-13); PLATELET COUNT 158 10^3/uL (150-450); RED BLOOD COUNT 3.55 10^6/uL (3.72-5.28); RED CELL DISTRIBUTION WIDTH 14.4 % (11.5-14.0); SEGMENTED NEUTROPHILS % (AUTO) 92.7 % (42-78); TOTAL CELLS COUNTED % (AUTO) 100 %; WHITE BLOOD COUNT 6.1 10^3/uL (4.0-10.5)
[2019-05-28] MEDS ORDERED: NITROGLYCERIN 0.4 MG/TAB 25 TAB/BOTTLE SL ONE (04:19)
[2019-05-28] MEDS ORDERED: ASPIRIN 81 MG TABLET, CHEWABLE PO ONE (04:21)
[2019-05-28] MEDS: HEPARIN SOD (PORCINE) 5,000 UNIT/ML 1 ML SYRINGE SUBCUT SCH ×3 (05:43→21:46)
--- NOTE | 2019-05-28 05:49 | PDOC H&P ---
History of Present Illness Admission Date/PCP: 05/28/19 00:12 STEVE SCANLON Patient complains of: Shortness of breath History of Present Illness: GAVI PEDRO is a 73 year old female with a past medical history of left bundle branch block, home oxygen dependent COPD, allergic sinusitis, chronic bronchitis, GERD, obstructive sleep apnea and mild to moderate diastolic heart failure. She presents with 24 hours of shortness of breath and a nonproductive cough prompting evaluation in the emergency room where she is found to have a BNP of 1620. She is treated for bronchitis and referred to the hospitalist for admission. Patient denies medication changes but admits BiPAP noncompliance. She is pain-free. Past Medical History Cardiac Medical History: Reports: Congestive Heart Failure, Coronary Artery Disease, DVT, Hypertension Denies: Atrial Fibrillation, Myocardial Infarction, Heart Murmur Pulmonary Medical History: Reports: Asthma, Chronic Obstructive Pulmonary Disease (COPD), Pneumonia Denies: Bronchitis, Respiratory Failure, Sleep Apnea, Tuberculosis Neurological Medical History: Denies: Seizures Endocrine Medical History: Denies: Diabetes Mellitus Type 1, Hyperthyroidism, Hypothyroidism GI Medical History: Reports: Diverticulitis, Gastroesophageal Reflux Disease Denies: Cirrhosis, Crohn's Disease, Hepatitis, Hiatal Hernia, Ulcerative Colitis Musculoskeltal Medical History: Reports: Arthritis Denies: Gout Skin Medical History: Denies: Eczema, Psoriasis Psychiatric Medical History: Denies: Depression Hematology: Reports: Anemia Denies: Hemophilia, Sickle Cell Disease, Bleeding Tendencies Past Surgical History Past Surgical History: Reports: Appendectomy, Cholecystectomy, Herniorrhaphy, Hysterectomy, Orthopedic Surgery - rotator cuff Denies: Amputation, Mastectomy, Pacemaker Social History Information Source: Patient Smoking Status: Unknown if Ever Smoked Frequency of Alcohol Use: None Hx Recreational Drug Use: No Drugs: None Hx Prescription Drug Abuse: No - Advance Directive Resuscitation Status: Full Code Family History Family History: COPD, Hypertension Parental Family History Reviewed: Yes Children Family History Reviewed: Yes Sibling(s) Family History Reviewed.: Yes Medication/Allergy Home Medications: Albuterol Sulfate [Proair HFA Inhalation Aerosol 8.5 gm MDI] 2 puff IH Q4HP PRN 05/08/19 Aspirin [Adult Low Dose Aspirin EC] 81 mg PO DAILY 05/08/19 Atorvastatin Calcium [Lipitor 10 mg Tablet] 10 mg PO QHS 05/08/19 Gabapentin [Neurontin 400 mg Capsule] 400 mg PO Q12 05/08/19 Hydrocodone/Acetaminophen [[place] 5-325 mg Tablet] 1 tab PO Q12HP PRN 05/08/19 Lisinopril [Zestril] 5 mg PO DAILY 05/08/19 Metformin HCl [Glucophage 500 mg Tablet] 500 mg PO BID 05/08/19 Fluticasone/Umeclidin/Vilanter [Trelegy 100-62.5-25 Mcg Ellipta 14 Dose/Dpi] 1 puff IH DAILY #1 inhaler 05/11/19 Dexlansoprazole [Dexilant 60 mg Capsule] 60 mg PO DAILY 05/27/19 Fluticasone/Umeclidin/Vilanter [Trelegy 100-62.5-25 Mcg Ellipta 14 Dose/Dpi] 1 each IH DAILY 05/27/19 Allergies/Adverse Reactions: ibuprofen [From Motrin] Allergy (Intermediate, Verified 05/27/19 21:06) RASH/UTICARTIA Review of Systems Constitutional: ABSENT: chills, fever(s), headache(s), weight gain, weight loss Eyes: ABSENT: visual disturbances Ears: ABSENT: hearing changes Cardiovascular: ABSENT: chest pain, dyspnea on exertion, edema, orthropnea, pa lpitations Respiratory: ABSENT: cough, hemoptysis Gastrointestinal: ABSENT: abdominal pain, constipation, diarrhea, hematemesis, hematochezia, nausea, vomiting Genitourinary: ABSENT: dysuria, hematuria Musculoskeletal: ABSENT: joint swelling Integumentary: ABSENT: rash, wounds Neurological: ABSENT: abnormal gait, abnormal speech, confusion, dizziness, focal weakness, syncope Psychiatric: ABSENT: anxiety, depression, homidical ideation, suicidal ideation Endocrine: ABSENT: cold intolerance, heat intolerance, polydipsia, polyuria Hematologic/Lymphatic: ABSENT: easy bleeding, easy bruising Physical Exam Vital Signs: Temp Pulse Resp BP Pulse Ox 98.5 F 86 24 H 144/84 H 97 05/27/19 19:11 05/27/19 19:11 05/28/19 05:30 05/28/19 05:30 05/28/19 05:30 Intake & Output 05/26/19 05/27/19 05/28/19 11:59 11:59 11:59 Intake Total 250 Balance 250 Weight 78.018 kg General appearance: PRESENT: no acute distress, cooperative, obese, well-develop ed, well-nourished Head exam: PRESENT: atraumatic, normocephalic Eye exam: PRESENT: conjunctiva pink, EOMI, PERRLA. ABSENT: scleral icterus Ear exam: PRESENT: normal external ear exam Mouth exam: PRESENT: moist, tongue midline Neck exam: ABSENT: carotid bruit, JVD, lymphadenopathy, thyromegaly Respiratory exam: PRESENT: clear to auscultation [place]. ABSENT: rales, rhonchi, wheezes Cardiovascular exam: PRESENT: RRR. ABSENT: diastolic murmur, rubs, systolic murmur Pulses: PRESENT: normal dorsalis pedis pul Vascular exam: PRESENT: normal capillary refill GI/Abdominal exam: PRESENT: diminished bowel sounds, hypoactive bowel sounds, normal bowel sounds, soft. ABSENT: distended, guarding, mass, organolmegaly, rebound, tenderness Rectal exam: PRESENT: deferred Extremities exam: PRESENT: full ROM. ABSENT: calf tenderness, clubbing, pedal edema Neurological exam: PRESENT: alert, awake, oriented to person, oriented to place, oriented to time, oriented to situation, CN II-XII grossly intact. ABSENT: motor sensory deficit Psychiatric exam: PRESENT: appropriate affect, normal mood. ABSENT: homicidal ideation, suicidal ideation Skin exam: PRESENT: dry, intact, warm. ABSENT: cyanosis, rash Results Laboratory Results: 05/28/19 03:59 05/27/19 19:05 05/27/19 05/27/19 05/27/19 19:05 19:05 19:05 WBC 8.1 RBC 3.54 L Hgb 11.1 L Hct 32.8 L MCV 93 MCH 31.5 MCHC 34.0 RDW 14.5 H Plt Count 181 Seg Neutrophils % 67.9 Lymphocytes % 23.4 Monocytes % 6.9 Eosinophils % 1.4 Basophils % 0.4 Absolute Neutrophils 5.5 Absolute Lymphocytes 1.9 Absolute Monocytes 0.6 Absolute Eosinophils 0.1 Absolute Basophils 0.0 Sodium 139.7 Potassium 4.4 Chloride 103 Carbon Dioxide 28 Anion Gap 9 BUN 18 Creatinine 1.05 Est GFR ( Amer) > 60 Est GFR (Non-Af Amer) 51 L Glucose 166 H Calcium 9.0 Magnesium Total Bilirubin 0.3 AST 21 ALT 14 Alkaline Phosphatase 127 H Total Protein 6.3 Albumin 3.6 Lipase 133.8 Urine Color Urine Appearance Urine pH Ur Specific [place] Urine Protein Urine Glucose (UA) Urine Ketones Urine Blood Urine Nitrite Ur Leukocyte Esterase Urine WBC (Auto) Urine RBC (Auto) 05/27/19 05/27/19 05/28/19 19:05 23:20 03:59 WBC 6.1 RBC 3.55 L Hgb 10.7 L Hct 33.1 L MCV 93 MCH 30.1 MCHC 32.3 RDW 14.4 H Plt Count 158 Seg Neutrophils % 92.7 H Lymphocytes % 6.3 L Monocytes % 0.6 L Eosinophils % 0.1 Basophils % 0.3 Absolute Neutrophils 5.6 Absolute Lymphocytes 0.4 L Absolute Monocytes 0.0 L Absolute Eosinophils 0.0 Absolute Basophils 0.0 Sodium Potassium Chloride Carbon Dioxide Anion Gap BUN Creatinine Est GFR ( Amer) Est GFR (Non-Af Amer) Glucose Calcium Magnesium 1.2 L* Total Bilirubin AST ALT Alkaline Phosphatase Total Protein Albumin Lipase Urine Color YELLOW Urine Appearance CLEAR Urine pH 6.0 Ur Specific [place] 1.039 Urine Protein 30 H Urine Glucose (UA) 50 H Urine Ketones NEGATIVE Urine Blood NEGATIVE Urine Nitrite NEGATIVE Ur Leukocyte Esterase NEGATIVE Urine WBC (Auto) 0 Urine RBC (Auto) 1 05/27/19 05/27/19 05/28/19 19:05 19:05 03:59 Creatine Kinase 46 CK-MB (CK-2) 1.25 Troponin I < 0.012 < 0.012 NT-Pro-B Natriuret Pep 1620 H Impressions: Chest X-Ray 05/27/19 19:14 IMPRESSION: NO ACUTE DISEASE. Chest/Abdomen CTA 05/27/19 21:22 IMPRESSION: 1. No CT evidence for pulmonary embolism. 2. No acute pulmonary findings. 3. Unchanged right upper lobe nodule 4. Emphysema and atherosclerosis as on prior exam Assessment and Plan - Diagnosis (1) Diastolic CHF Qualifiers: Is this a current diagnosis for this admission?: Yes Plan: Optimize uncontrolled blood pressure and volume status. Education for BiPAP use. Follow-up chemistry in cardiac enzymes (2) Acute exacerbation of chronic obstructive pulmonary disease (COPD) Is this a current diagnosis for this admission?: Yes Plan: Outpatient regiment, supplemental oxygen and aggressive pulmonary toilet (3) JENNIE (obstructive sleep apnea) Is this a current diagnosis for this admission?: Yes Plan: BiPAP and education. - Time Time Spent with patient: 15-24 minutes - Inpatient Certification Medical Necessity: Need Close Monitoring Due to Risk of Patient Decompensation
--- NOTE | 2019-05-28 07:57 | RADIOLOGY REPORT (SQ) ---
EXAM DESCRIPTION: XR ABDOMEN 2 VIEWS SUPINE ERECT COMPLETED DATE/TME: 05/28/2019 05:42 CLINICAL HISTORY: 73 years Female, abd pain COMPARISON: None. NUMBER OF VIEWS/TECHNIQUE: 1 FINDINGS: Intestinal gas pattern is within normal limits. Paucity of bowel gas. Colonic stool retention. Urinary bladder, retained contrast. No suspicious calcification. Grossly intact skeletal structures. IMPRESSION: No acute findings.
[2019-05-28] MEDS: IPRATROPIUM/ALBUTEROL 0.5-2.5 MG/3 ML AMPUL NEB SCH ×3 (08:13→23:29)
--- NOTE | 2019-05-28 09:40 | EKG REPORT ---
SEVERITY:- ABNORMAL ECG - SINUS RHYTHM LEFT BUNDLE BRANCH BLOCK : Confirmed by: Francisca Marin 28-May-2019 09:40:26
[2019-05-28] MEDS: GABAPENTIN 400 MG CAPSULE PO SCH ×2 (10:16→21:45)
[2019-05-28] MEDS: ASPIRIN 81 MG TABLET, ENT COATED PO SCH (10:16)
[2019-05-28] MEDS: POTASSIUM CHLORIDE 10 MEQ CAPSULE.ER PO SCH ×2 (10:16→21:46)
[2019-05-28] MEDS: CARVEDILOL 6.25 MG TABLET PO SCH ×2 (10:16→21:45)
[2019-05-28] MEDS: PANTOPRAZOLE SODIUM 40 MG TABLET.DR PO SCH (10:17)
[2019-05-28] MEDS: LISINOPRIL 5 MG TABLET PO SCH (10:17)
[2019-05-28] MEDS: FUROSEMIDE INJ/PF 20 MG/2 ML SDV IV SCH ×2 (10:17→21:46)
[2019-05-28] MEDS: FLUTICASONE/UMECLIDIN/VILANTER 100-62.5-25 MCG/DOSE IH SCH (10:18)
--- NOTE | 2019-05-28 17:18 | Progress Note Acknowledgement ---
Progress Note Acknowledgement Progess Note Acknowledgement: I, the undersigned member of the medical staff with appropriate privileges and with supervisory authority over Linda Yun, a [facility] practice allied health professional, acknowledge that I have reviewed the progress notes entered on this patient, and in my professional judgment believe that the assessment made and/or any care evidenced was appropriate
[2019-05-28] MEDS ORDERED: DEXTROSE 40% GEL 15 GM TUBE PO PRN ×2 (17:26)
[2019-05-28] MEDS ORDERED: GLUCAGON,HUMAN RECOMB 1 MG INJ IM PRN (17:26)
[2019-05-28] MEDS ORDERED: DEXTROSE 50%-WATER 25 GM/50 ML DISP.SYRIN IV PRN ×2 (17:26)
--- NOTE | 2019-05-28 17:31 | PDOC PROGRESS REPORT ---
Subjective Progress Note for:: 05/28/19 Subjective:: GAVI PEDRO is a 73 year old female with a past medical history of left bundle branch block, home oxygen dependent COPD, allergic sinusitis, chronic bronchitis, GERD, obstructive sleep apnea and mild to moderate diastolic heart failure who was admitted 05/27/2019 for acute COPD exacerbation and CHF exacerbation. Patient was seen on morning rounds while still in the emergency department she was found sitting up to the edge of her bed eating her breakfast. She is noted to be breathing easily and speaking full sentences while on supplemental oxygen via nasal cannula. She does continue to endorse vague, generalized abdominal discomfort that she is unable to further localize or describe. She does deny nausea, vomiting, diarrhea and constipation. Otherwise she reports that she is feeling well and has no questions or concerns. She denies fever, chills, chest pain, palpitations, dyspnea, orthopnea, cough. She has no new questions or concerns. No concerns per nursing. Reason For Visit: HEART FAILURE COPD EXACERBATION Physical Exam Vital Signs: Temp Pulse Resp BP Pulse Ox 97.7 F 78 22 H 138/67 H 95 05/28/19 14:00 05/28/19 16:26 05/28/19 16:26 05/28/19 14:00 05/28/19 16:26 Intake & Output 05/27/19 05/28/19 05/29/19 06:59 06:59 06:59 Intake Total 250 100 Balance 250 100 Weight 78.018 kg 79.7 kg General appearance: PRESENT: no acute distress, cooperative, obese, well- developed, well-nourished Head exam: PRESENT: atraumatic, normocephalic Eye exam: PRESENT: conjunctiva pink, EOMI, PERRLA. ABSENT: scleral icterus Ear exam: PRESENT: normal external ear exam Mouth exam: PRESENT: moist, tongue midline Neck exam: ABSENT: carotid bruit, JVD, lymphadenopathy, thyromegaly Respiratory exam: PRESENT: clear to auscultation chago, decreased breath sounds - Bibasilar; secondary to body habitus and poor inspiratory effort, symmetrical, unlabored, other - Supplemental oxygen via nasal cannula. ABSENT: rales, rhonchi, wheezes Cardiovascular exam: PRESENT: RRR. ABSENT: diastolic murmur, rubs, systolic murmur Pulses: PRESENT: normal dorsalis pedis pul Vascular exam: PRESENT: normal capillary refill GI/Abdominal exam: PRESENT: normal bowel sounds, soft, tenderness - Generalized, nonspecific. ABSENT: distended, guarding, mass, organolmegaly, rebound Rectal exam: PRESENT: deferred Extremities exam: PRESENT: full ROM. ABSENT: calf tenderness, clubbing, pedal edema Neurological exam: PRESENT: alert, awake, oriented to person, oriented to place, oriented to time, oriented to situation, CN II-XII grossly intact. ABSENT: motor sensory deficit Psychiatric exam: PRESENT: appropriate affect, normal mood. ABSENT: homicidal ideation, suicidal ideation Skin exam: PRESENT: dry, intact, warm. ABSENT: cyanosis, rash Results Laboratory Results: 05/28/19 03:59 05/27/19 19:05 05/27/19 05/27/19 05/27/19 19:05 19:05 19:05 WBC 8.1 RBC 3.54 L Hgb 11.1 L Hct 32.8 L MCV 93 MCH 31.5 MCHC 34.0 RDW 14.5 H Plt Count 181 Seg Neutrophils % 67.9 Lymphocytes % 23.4 Monocytes % 6.9 Eosinophils % 1.4 Basophils % 0.4 Absolute Neutrophils 5.5 Absolute Lymphocytes 1.9 Absolute Monocytes 0.6 Absolute Eosinophils 0.1 Absolute Basophils 0.0 Sodium 139.7 Potassium 4.4 Chloride 103 Carbon Dioxide 28 Anion Gap 9 BUN 18 Creatinine 1.05 Est GFR ( Amer) > 60 Est GFR (Non-Af Amer) 51 L Glucose 166 H Calcium 9.0 Magnesium Total Bilirubin 0.3 AST 21 ALT 14 Alkaline Phosphatase 127 H Total Protein 6.3 Albumin 3.6 Lipase 133.8 Urine Color Urine Appearance Urine pH Ur Specific [place] Urine Protein Urine Glucose (UA) Urine Ketones Urine Blood Urine Nitrite Ur Leukocyte Esterase Urine WBC (Auto) Urine RBC (Auto) 05/27/19 05/27/19 05/28/19 19:05 23:20 03:59 WBC 6.1 RBC 3.55 L Hgb 10.7 L Hct 33.1 L MCV 93 MCH 30.1 MCHC 32.3 RDW 14.4 H Plt Count 158 Seg Neutrophils % 92.7 H Lymphocytes % 6.3 L Monocytes % 0.6 L Eosinophils % 0.1 Basophils % 0.3 Absolute Neutrophils 5.6 Absolute Lymphocytes 0.4 L Absolute Monocytes 0.0 L Absolute Eosinophils 0.0 Absolute Basophils 0.0 Sodium Potassium Chloride Carbon Dioxide Anion Gap BUN Creatinine Est GFR ( Amer) Est GFR (Non-Af Amer) Glucose Calcium Magnesium 1.2 L* Total Bilirubin AST ALT Alkaline Phosphatase Total Protein Albumin Lipase Urine Color YELLOW Urine Appearance CLEAR Urine pH 6.0 Ur Specific [place] 1.039 Urine Protein 30 H Urine Glucose (UA) 50 H Urine Ketones NEGATIVE Urine Blood NEGATIVE Urine Nitrite NEGATIVE Ur Leukocyte Esterase NEGATIVE Urine WBC (Auto) 0 Urine RBC (Auto) 1 05/28/19 03:59 WBC RBC Hgb Hct MCV MCH MCHC RDW Plt Count Seg Neutrophils % Lymphocytes % Monocytes % Eosinophils % Basophils % Absolute Neutrophils Absolute Lymphocytes Absolute Monocytes Absolute Eosinophils Absolute Basophils Sodium Potassium Chloride Carbon Dioxide Anion Gap BUN Creatinine Est GFR ( Amer) Est GFR (Non-Af Amer) Glucose Calcium Magnesium 1.6 Total Bilirubin AST ALT Alkaline Phosphatase Total Protein Albumin Lipase Urine Color Urine Appearance Urine pH Ur Specific [place] Urine Protein Urine Glucose (UA) Urine Ketones Urine Blood Urine Nitrite Ur Leukocyte Esterase Urine WBC (Auto) Urine RBC (Auto) 05/27/19 05/27/19 05/28/19 19:05 19:05 03:59 Creatine Kinase 46 CK-MB (CK-2) 1.25 Troponin I < 0.012 < 0.012 NT-Pro-B Natriuret Pep 1620 H Impressions: Chest X-Ray 05/27/19 19:14 IMPRESSION: NO ACUTE DISEASE. Chest/Abdomen CTA 05/27/19 21:22 IMPRESSION: 1. No CT evidence for pulmonary embolism. 2. No acute pulmonary findings. 3. Unchanged right upper lobe nodule 4. Emphysema and atherosclerosis as on prior exam Abdomen X-Ray 05/28/19 05:42 IMPRESSION: No acute findings. Assessment and Plan - Diagnosis (1) Congestive heart failure Qualifiers: Heart failure type: diastolic Heart failure chronicity: acute on chronic Qualified Code(s): I50.33 - Acute on chronic diastolic (congestive) heart failure Is this a current diagnosis for this admission?: Yes Plan: BNP is elevated to 1620 CXR negative for acute findings. CTA of the chest is negative for acute findings. Patient was placed on a nitroglycerin patch; have discontinued this. Patient received IV furosemide overnight; will transition to p.o. furosemide. Have resumed her home dose lisinopril, Carvedilol, aspirin and statin therapy. She is placed on a cardiac diet. Daily weights and strict I&O's (2) Acute exacerbation of chronic obstructive pulmonary disease (COPD) Is this a current diagnosis for this admission?: Yes Plan: Continue outpatient regiment of Trelegy and Flonase. Supplemental oxygen as needed. Scheduled and as needed nebulizer treatments. Received IV Solu-Medrol x1 by ED provider; no further wheezing or rhonchi noted. Will hold on any additional steroid therapy at this time. No indications for anabolic therapy at this time. (3) Abdominal pain Qualifiers: Abdominal location: generalized Qualified Code(s): R10.84 - Generalized abdominal pain Is this a current diagnosis for this admission?: Yes Plan: Patient reports vague, generalized abdominal discomfort; she is unable to localize or further describe her pain. She does deny nausea, vomiting, diarrhea and constipation. She is tolerating regular diet. KUB is benign. Supportive care. Analgesics as needed. 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 She is placed on sliding scale insulin. (5) JENNIE (obstructive sleep apnea) Is this a current diagnosis for this admission?: Yes Plan: BiPAP and education. - Time Time Spent with patient: 15-24 minutes Medications reviewed and adjusted accordingly: Yes Anticipated discharge: Home Within: within 24 hours
[2019-05-28] MEDS ORDERED: NITROGLYCERIN 5 MG (0.2 MG/HR) PATCH.TD24 TD SCH (18:00)
[2019-05-28] MEDS: ACETAMINOPHEN 325 MG TABLET PO PRN (19:16)
[2019-05-28] MEDS: ATORVASTATIN CALCIUM 10 MG TABLET PO SCH (21:45)
[2019-05-28] MEDS: INSULIN LISPRO 100 UNIT/ML 3 ML VIAL SUBCUT SCH (21:46)
[2019-05-29] MEDS: HYDROCODONE/ACETAMINOPHEN 5-325 MG TABLET PO PRN ×2 (05:07→21:43)
[2019-05-29] MEDS: HEPARIN SOD (PORCINE) 5,000 UNIT/ML 1 ML SYRINGE SUBCUT SCH ×3 (05:07→21:44)
[2019-05-29 05:08] LABS: HEMATOCRIT 30.1 % (36.0-47.0); HEMOGLOBIN 9.9 g/dL (12.0-15.5); MEAN CORPUSCULAR HEMOGLOBIN 30.6 pg (27.0-33.4); MEAN CORPUSCULAR HGB CONC 32.9 g/dL (32.0-36.0); MEAN CORPUSCULAR VOLUME 93 fl (80-97); PLATELET COUNT 153 10^3/uL (150-450); RED BLOOD COUNT 3.23 10^6/uL (3.72-5.28); RED CELL DISTRIBUTION WIDTH 14.7 % (11.5-14.0); WHITE BLOOD COUNT 10.4 10^3/uL (4.0-10.5)
[2019-05-29 05:33] LABS: ANION GAP 7 (5-19); BLOOD UREA NITROGEN 40 mg/dL (7-20); CALCIUM 8.6 mg/dL (8.4-10.2); CARBON DIOXIDE 31 mmol/L (22-30); CHLORIDE 99 mmol/L (98-107); GLUCOSE 189 mg/dL (75-110); POTASSIUM 5.1 mmol/L (3.6-5.0); SODIUM 136.6 mmol/L (137-145)
[2019-05-29] MEDS: INSULIN LISPRO 100 UNIT/ML 3 ML VIAL SUBCUT SCH ×4 (08:38→21:43)
[2019-05-29] MEDS: IPRATROPIUM/ALBUTEROL 0.5-2.5 MG/3 ML AMPUL NEB SCH ×2 (08:51→16:58)
[2019-05-29] MEDS: GABAPENTIN 400 MG CAPSULE PO SCH ×2 (10:17→21:43)
[2019-05-29] MEDS: LISINOPRIL 5 MG TABLET PO SCH (10:17)
[2019-05-29] MEDS: PANTOPRAZOLE SODIUM 40 MG TABLET.DR PO SCH (10:17)
[2019-05-29] MEDS: FLUTICASONE/UMECLIDIN/VILANTER 100-62.5-25 MCG/DOSE IH SCH (10:17)
[2019-05-29] MEDS: ASPIRIN 81 MG TABLET, ENT COATED PO SCH (10:17)
[2019-05-29] MEDS: CARVEDILOL 6.25 MG TABLET PO SCH ×2 (10:18→21:43)
[2019-05-29] MEDS: POTASSIUM CHLORIDE 10 MEQ CAPSULE.ER PO SCH ×2 (12:06→21:46)
[2019-05-29] MEDS: PIPERACILLIN SODIUM/TAZOBACTAM 3.375 GM in NORMAL SALINE 100 ML IV SCH ×2 (13:51→17:09)
--- NOTE | 2019-05-29 19:58 | PDOC PROGRESS REPORT ---
Subjective Progress Note for:: 05/29/19 Subjective:: GAVI PEDRO is a 73 year old female with a past medical history of left bundle branch block, home oxygen dependent COPD, allergic sinusitis, chronic bronchitis, GERD, obstructive sleep apnea and mild to moderate diastolic heart failure who was admitted 05/27/2019 for acute COPD exacerbation and CHF exacerbation. Patient was seen on morning rounds. She is found resting in bed comfortably on 3lpm via NC (baseline requirement). She is noted to be breathing easily and speaking full sentences. She does complain of slight dizziness on standing. Patient did work with physical therapy who have signed off; no PT needs at this time and no report of dizziness during activity. Patient report that she "just doesn't want to go home," but is unable to describe any other physical symptoms or indications for her to remain inpatient. However, she is noted to have 2 out of 4 blood culture bottles growing gram-positive cocci. She denies fever, chills, chest pain, palpitations, dyspnea, orthopnea, cough, abdominal pain, nausea vomiting and diarrhea.. She has no other questions or concerns. No concerns per nursing. Reason For Visit: HEART FAILURE COPD EXACERBATION Physical Exam Vital Signs: Temp Pulse Resp BP Pulse Ox 97.7 F 60 18 107/55 L 91 L 05/29/19 15:01 05/29/19 16:58 05/29/19 16:58 05/29/19 15:01 05/29/19 16:58 Intake & Output 05/28/19 05/29/19 05/30/19 06:59 06:59 06:59 Intake Total 250 820 680 Output Total 200 Balance 250 820 480 Weight 78.018 kg 79.7 kg General appearance: PRESENT: no acute distress, obese, well-developed, well- nourished Head exam: PRESENT: atraumatic, normocephalic Eye exam: PRESENT: conjunctiva pink, EOMI, PERRLA. ABSENT: scleral icterus Ear exam: PRESENT: normal external ear exam Mouth exam: PRESENT: moist, tongue midline Neck exam: ABSENT: carotid bruit, JVD, lymphadenopathy, thyromegaly Respiratory exam: PRESENT: clear to auscultation chago, decreased breath sounds - Bibasilar, prolonged expiratory phas, symmetrical, unlabored, other - Baseline supplemental oxygen requirement. ABSENT: rales, rhonchi, wheezes Cardiovascular exam: PRESENT: RRR. ABSENT: diastolic murmur, rubs, systolic murmur Pulses: PRESENT: normal dorsalis pedis pul Vascular exam: PRESENT: normal capillary refill GI/Abdominal exam: PRESENT: normal bowel sounds, soft. ABSENT: distended, guarding, mass, organolmegaly, rebound, tenderness Rectal exam: PRESENT: deferred Extremities exam: PRESENT: full ROM. ABSENT: calf tenderness, clubbing, pedal edema Neurological exam: PRESENT: alert, awake, oriented to person, oriented to place, oriented to time, oriented to situation, CN II-XII grossly intact. ABSENT: motor sensory deficit Psychiatric exam: PRESENT: anxious, appropriate affect. ABSENT: homicidal ideation, suicidal ideation Skin exam: PRESENT: dry, intact, warm. ABSENT: cyanosis, rash Results Laboratory Results: 05/29/19 04:05 05/29/19 04:05 05/29/19 05/29/19 04:05 04:05 WBC 10.4 RBC 3.23 L Hgb 9.9 L Hct 30.1 L MCV 93 MCH 30.6 MCHC 32.9 RDW 14.7 H Plt Count 153 Sodium 136.6 L Potassium 5.1 H Chloride 99 Carbon Dioxide 31 H Anion Gap 7 BUN 40 H Creatinine 1.35 H Est GFR ( Amer) 47 L Est GFR (Non-Af Amer) 38 L Glucose 189 H Calcium 8.6 05/27/19 05/27/19 05/28/19 19:05 19:05 03:59 Creatine Kinase 46 CK-MB (CK-2) 1.25 Troponin I < 0.012 < 0.012 NT-Pro-B Natriuret Pep 1620 H Impressions: Chest X-Ray 05/27/19 19:14 IMPRESSION: NO ACUTE DISEASE. Chest/Abdomen CTA 05/27/19 21:22 IMPRESSION: 1. No CT evidence for pulmonary embolism. 2. No acute pulmonary findings. 3. Unchanged right upper lobe nodule 4. Emphysema and atherosclerosis as on prior exam Abdomen X-Ray 05/28/19 05:42 IMPRESSION: No acute findings. Assessment and Plan - Diagnosis (1) Congestive heart failure Qualifiers: Heart failure type: diastolic Heart failure chronicity: acute on chronic Qualified Code(s): I50.33 - Acute on chronic diastolic (congestive) heart failure Is this a current diagnosis for this admission?: Yes Plan: BNP is elevated to 1620 CXR negative for acute findings. CTA of the chest is negative for acute findings. Patient initially received IV furosemide for diuresis. She is not on home furosemide. Lung sounds currently clear, no edema. Will hold on initiating p.o. furosemide at this time; continue to monitor. Continue her home dose lisinopril, Carvedilol, aspirin and statin therapy. She is placed on a cardiac diet. Daily weights and strict I&O's (2) Acute exacerbation of chronic obstructive pulmonary disease (COPD) Is this a current diagnosis for this admission?: Yes Plan: Continue outpatient regiment of Trelegy and Flonase. Supplemental oxygen as needed. Scheduled and as needed nebulizer treatments. Received IV Solu-Medrol x1 by ED provider; no further wheezing or rhonchi noted. Will hold on any additional steroid therapy at this time. No indications for anabolic therapy at this time. (3) Abdominal pain Qualifiers: Abdominal location: generalized Qualified Code(s): R10.84 - Generalized abdominal pain Is this a current diagnosis for this admission?: Yes Plan: Resolved per patient. Patient reports vague, generalized abdominal discomfort; she is unable to localize or further describe her pain. She does deny nausea, vomiting, diarrhea and constipation. She is tolerating regular diet. KUB is benign. As patient has positive blood cultures; did plan on CT imaging. However, patient refused and on exam she has a benign abdomen. Supportive care. Analgesics as needed. 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 She is placed on sliding scale insulin. (5) JENNIE (obstructive sleep apnea) Is this a current diagnosis for this admission?: Yes Plan: BiPAP and education. (6) Bacteremia Is this a current diagnosis for this admission?: Yes Plan: Blood cultures (05/27/2019) growing gram-positive cocci clusters in 2 of 4 bottles. Repeat blood cultures (05/29/2019) pending. Unclear etiology; patient has a normal urinalysis, negative chest x-ray, benign abdominal exam. Possibly contaminant however in 2 of 4 bottles. Therefore patient is placed on IV Zosyn pending identification and sensitivity; she has no MRSA history. - Time Time Spent with patient: 25-34 minutes Medications reviewed and adjusted accordingly: Yes Anticipated discharge: Home Within: within 48 hours - Plan Summary Plan Summary: Patient growing gram-positive cocci in clusters in 2 of 4 blood culture bottles. Will need to identify prior to discharge. Otherwise, the patient is medically stable for discharge to home.
[2019-05-29] MEDS: ATORVASTATIN CALCIUM 10 MG TABLET PO SCH (21:43)
[2019-05-30] MEDS: PIPERACILLIN SODIUM/TAZOBACTAM 3.375 GM in NORMAL SALINE 100 ML IV SCH ×5 (00:04→23:25)
[2019-05-30] MEDS: IPRATROPIUM/ALBUTEROL 0.5-2.5 MG/3 ML AMPUL NEB SCH ×3 (00:10→16:14)
[2019-05-30] MEDS: HEPARIN SOD (PORCINE) 5,000 UNIT/ML 1 ML SYRINGE SUBCUT SCH ×3 (05:04→23:26)
[2019-05-30] MEDS: INSULIN LISPRO 100 UNIT/ML 3 ML VIAL SUBCUT SCH ×4 (07:24→23:20)
[2019-05-30] MEDS: ASPIRIN 81 MG TABLET, ENT COATED PO SCH (10:41)
[2019-05-30] MEDS: GABAPENTIN 400 MG CAPSULE PO SCH ×2 (10:41→23:25)
[2019-05-30] MEDS: FLUTICASONE/UMECLIDIN/VILANTER 100-62.5-25 MCG/DOSE IH SCH (10:41)
[2019-05-30] MEDS: PANTOPRAZOLE SODIUM 40 MG TABLET.DR PO SCH (10:41)
[2019-05-30] MEDS: CARVEDILOL 6.25 MG TABLET PO SCH ×2 (10:41→23:25)
[2019-05-30] MEDS: LISINOPRIL 5 MG TABLET PO SCH (10:41)
[2019-05-30] MEDS: POTASSIUM CHLORIDE 10 MEQ CAPSULE.ER PO SCH ×2 (10:42→23:25)
--- NOTE | 2019-05-30 15:41 | PDOC PROGRESS REPORT ---
Subjective Progress Note for:: 05/30/19 Subjective:: Patient continues to report improvements. She denies recent fever. She is currently on 3 L of oxygen via nasal cannula. She is home dependent on oxygen at 3 L. She endorses compliance with BiPAP at home for sleep apnea, per her report that is inaccurate. She is approaching baseline. Reason For Visit: HEART FAILURE COPD EXACERBATION Physical Exam Vital Signs: Temp Pulse Resp BP Pulse Ox 98.1 F 62 18 129/74 H 91 L 05/30/19 11:08 05/30/19 11:08 05/30/19 08:00 05/30/19 11:08 05/30/19 11:08 Intake & Output 05/29/19 05/30/19 05/31/19 06:59 06:59 06:59 Intake Total 820 880 100 Output Total 200 Balance 820 680 100 Weight 79.7 kg 84.8 kg General appearance: PRESENT: no acute distress, morbidly obese, well-developed, well-nourished Head exam: PRESENT: atraumatic, normocephalic Eye exam: PRESENT: conjunctiva pink, EOMI, PERRLA. ABSENT: scleral icterus Ear exam: PRESENT: normal external ear exam Mouth exam: PRESENT: moist, tongue midline Respiratory exam: PRESENT: decreased breath sounds, prolonged expiratory phas, unlabored, wheezes - Very mild Cardiovascular exam: PRESENT: +S1, +S2 GI/Abdominal exam: PRESENT: normal bowel sounds, soft. ABSENT: distended, guarding, mass, organolmegaly, rebound, tenderness Rectal exam: PRESENT: deferred Extremities exam: PRESENT: +1 edema - biLateral lower extremities Musculoskeletal exam: PRESENT: full ROM Neurological exam: PRESENT: alert, awake, oriented to person, oriented to place, oriented to time, oriented to situation, CN II-XII grossly intact. ABSENT: motor sensory deficit Psychiatric exam: PRESENT: normal mood Focused psych exam: ABSENT: catatonic, delusional, euphoric, flight of ideas, internal stimuli, paranoid, pressured speech, psychomotor agitation, restlessness, other Skin exam: PRESENT: dry, intact, warm. ABSENT: cyanosis, rash Results Laboratory Results: 05/29/19 04:05 05/29/19 04:05 05/27/19 05/27/19 05/28/19 19:05 19:05 03:59 Creatine Kinase 46 CK-MB (CK-2) 1.25 Troponin I < 0.012 < 0.012 NT-Pro-B Natriuret Pep 1620 H Impressions: Chest X-Ray 05/27/19 19:14 IMPRESSION: NO ACUTE DISEASE. Chest/Abdomen CTA 05/27/19 21:22 IMPRESSION: 1. No CT evidence for pulmonary embolism. 2. No acute pulmonary findings. 3. Unchanged right upper lobe nodule 4. Emphysema and atherosclerosis as on prior exam Abdomen X-Ray 05/28/19 05:42 IMPRESSION: No acute findings. Assessment and Plan - Diagnosis (1) Hyperkalemia Is this a current diagnosis for this admission?: Yes Plan: Recheck in a.m. Consider Lasix or Kayexalate (2) Acute exacerbation of chronic obstructive pulmonary disease (COPD) Is this a current diagnosis for this admission?: Yes Plan: Continue with current recommendations. Improving. Given her poor respiratory status, we may need to give her oral antibiotics on discharge. Currently on IV Zosyn. Patient continues to smoke half pack per day. She plans to discuss quitting options with her primary care physician on discharge. (3) ANASTASIA (acute kidney injury) Is this a current diagnosis for this admission?: Yes Plan: Appears to be close to baseline. Recheck labs in the morning. (4) CKD (chronic kidney disease) stage 3, GFR 30-59 ml/min Is this a current diagnosis for this admission?: Yes Plan: Appears to be close to baseline. (5) Hypoxemia requiring supplemental oxygen Is this a current diagnosis for this admission?: Yes Plan: Utilizes home oxygen at 3 L via nasal cannula at home. - Time Time Spent with patient: 25-34 minutes Smoking Cessation Education: 3 to 10 minutes Medications reviewed and adjusted accordingly: Yes Anticipated discharge: Home Within: within 48 hours - Inpatient Certification Based on my medical assessment, after consideration of the patient's comorbidities, presenting symptoms, or acuity I expect that the services needed warrant INPATIENT care.: Yes I certify that my determination is in accordance with my understanding of Medicare's requirements for reasonable and necessary INPATIENT services [42 CFR 412.3e].: Yes - Plan Summary Plan Summary: Consider for discharge in the next 48 hours. May need to send the patient home on oral antibiotics given her poor respiratory status, even though this infection may be viral in nature.
[2019-05-30] MEDS: HYDROCODONE/ACETAMINOPHEN 5-325 MG TABLET PO PRN (20:29)
[2019-05-30] MEDS: ATORVASTATIN CALCIUM 10 MG TABLET PO SCH (23:25)
[2019-05-31] MEDS: IPRATROPIUM/ALBUTEROL 0.5-2.5 MG/3 ML AMPUL NEB SCH ×3 (00:02→15:38)
[2019-05-31] MEDS: HEPARIN SOD (PORCINE) 5,000 UNIT/ML 1 ML SYRINGE SUBCUT SCH ×3 (06:26→22:11)
[2019-05-31] MEDS: PIPERACILLIN SODIUM/TAZOBACTAM 3.375 GM in NORMAL SALINE 100 ML IV SCH ×3 (06:26→17:14)
[2019-05-31 07:16] LABS: HEMATOCRIT 32.4 % (36.0-47.0); HEMOGLOBIN 10.5 g/dL (12.0-15.5); MEAN CORPUSCULAR HEMOGLOBIN 30.6 pg (27.0-33.4); MEAN CORPUSCULAR HGB CONC 32.4 g/dL (32.0-36.0); MEAN CORPUSCULAR VOLUME 94 fl (80-97); PLATELET COUNT 163 10^3/uL (150-450); RED BLOOD COUNT 3.44 10^6/uL (3.72-5.28)
[2019-05-31 07:43] LABS: ALANINE AMINOTRANSFERASE 18 U/L (9-52); ALBUMIN 3.3 g/dL (3.5-5.0); ALKALINE PHOSPHATASE 89 U/L (38-126); ANION GAP 5 (5-19); ASPARTATE AMINO TRANSFERASE 19 U/L (14-36); BILIRUBIN,DIRECT 0.3 mg/dL (0.0-0.4); BILIRUBIN,TOTAL 0.3 mg/dL (0.2-1.3); BLOOD UREA NITROGEN 50 mg/dL (7-20); CALCIUM 8.6 mg/dL (8.4-10.2); CARBON DIOXIDE 30 mmol/L (22-30); CHLORIDE 105 mmol/L (98-107); GLUCOSE 120 mg/dL (75-110); POTASSIUM 5.6 mmol/L (3.6-5.0); SODIUM 139.5 mmol/L (137-145); TOTAL PROTEIN 5.8 g/dL (6.3-8.2)
[2019-05-31] MEDS: INSULIN LISPRO 100 UNIT/ML 3 ML VIAL SUBCUT SCH ×4 (07:58→22:11)
[2019-05-31] MEDS: ACETAMINOPHEN 325 MG TABLET PO PRN (08:31)
[2019-05-31] MEDS: HYDROCODONE/ACETAMINOPHEN 5-325 MG TABLET PO PRN (08:57)
[2019-05-31] MEDS: POTASSIUM CHLORIDE 10 MEQ CAPSULE.ER PO SCH (09:25)
[2019-05-31] MEDS: FLUTICASONE/UMECLIDIN/VILANTER 100-62.5-25 MCG/DOSE IH SCH (09:27)
[2019-05-31] MEDS: ASPIRIN 81 MG TABLET, ENT COATED PO SCH (09:27)
[2019-05-31] MEDS: LISINOPRIL 5 MG TABLET PO SCH (09:27)
[2019-05-31] MEDS: PANTOPRAZOLE SODIUM 40 MG TABLET.DR PO SCH (09:27)
[2019-05-31] MEDS: CARVEDILOL 6.25 MG TABLET PO SCH ×2 (09:28→22:17)
[2019-05-31] MEDS: GABAPENTIN 400 MG CAPSULE PO SCH ×2 (09:28→22:17)
[2019-05-31] MEDS ORDERED: NORMAL SALINE 1000 ML 1,000 ML IV ONE (15:53)
--- NOTE | 2019-05-31 16:02 | PDOC PROGRESS REPORT ---
Subjective Progress Note for:: 05/31/19 Subjective:: patient's potassium has moved up to 5.6, she is on lisinopril and potassium supplements. her renal function has declined. creatinine is trending up. her breathing is closer to baseline. clinically she seems to be improving. no fever or chills or acute sob. Reason For Visit: ANASTASIA ON CKD,HYPERKALEMIA Physical Exam Vital Signs: Temp Pulse Resp BP Pulse Ox 97.5 F 67 18 139/63 H 94 05/31/19 07:08 05/31/19 15:39 05/31/19 15:39 05/31/19 07:08 05/31/19 15:39 Intake & Output 05/30/19 05/31/19 06/01/19 06:59 06:59 06:59 Intake Total 880 1060 100 Output Total 200 Balance 680 1060 100 Weight 84.8 kg 82.8 kg General appearance: PRESENT: no acute distress, cooperative, morbidly obese Head exam: PRESENT: atraumatic, normocephalic Eye exam: PRESENT: conjunctiva pink, EOMI, PERRLA. ABSENT: scleral icterus Ear exam: PRESENT: normal external ear exam Mouth exam: PRESENT: moist, tongue midline Neck exam: ABSENT: carotid bruit, JVD, lymphadenopathy, thyromegaly Respiratory exam: PRESENT: decreased breath sounds, prolonged expiratory phas, unlabored Cardiovascular exam: PRESENT: RRR. ABSENT: diastolic murmur, rubs, systolic murmur GI/Abdominal exam: PRESENT: normal bowel sounds, soft. ABSENT: distended, guarding, mass, organolmegaly, rebound, tenderness Rectal exam: PRESENT: deferred Extremities exam: PRESENT: other - trace BLLE Musculoskeletal exam: PRESENT: normal inspection Neurological exam: PRESENT: alert, awake, oriented to person, oriented to place, oriented to time, oriented to situation, CN II-XII grossly intact. ABSENT: motor sensory deficit Psychiatric exam: PRESENT: appropriate affect, normal mood. ABSENT: homicidal ideation, suicidal ideation Skin exam: PRESENT: dry, intact, warm. ABSENT: cyanosis, rash Results Laboratory Results: 05/31/19 05:37 05/31/19 05:37 05/31/19 05/31/19 05:37 05:37 WBC 10.0 RBC 3.44 L Hgb 10.5 L Hct 32.4 L MCV 94 MCH 30.6 MCHC 32.4 RDW 15.0 H Plt Count 163 Sodium 139.5 Potassium 5.6 H Chloride 105 Carbon Dioxide 30 Anion Gap 5 BUN 50 H Creatinine 1.41 H Est GFR ( Amer) 44 L Est GFR (Non-Af Amer) 37 L Glucose 120 H Calcium 8.6 Magnesium 2.2 Total Bilirubin 0.3 AST 19 ALT 18 Alkaline Phosphatase 89 Total Protein 5.8 L Albumin 3.3 L 05/27/19 20:44 Blood Blood Culture - Final Staphylococcus Epidermidis 05/27/19 19:05 Blood Blood Culture - Final Staphylococcus Epidermidis 05/27/19 05/27/19 07 19:05 19:05 03:59 Creatine Kinase 46 CK-MB (CK-2) 1.25 Troponin I < 0.012 < 0.012 NT-Pro-B Natriuret Pep 1620 H Impressions: Chest X-Ray 05/27/19 19:14 IMPRESSION: NO ACUTE DISEASE. Chest/Abdomen CTA 05/27/19 21:22 IMPRESSION: 1. No CT evidence for pulmonary embolism. 2. No acute pulmonary findings. 3. Unchanged right upper lobe nodule 4. Emphysema and atherosclerosis as on prior exam Abdomen X-Ray 05/28/19 05:42 IMPRESSION: No acute findings. Assessment and Plan - Diagnosis (1) Hyperkalemia Is this a current diagnosis for this admission?: Yes Plan: Recheck in a.m. d/c K supplements and lower lisinopril from 5mg to 2.5mg. IVF should also dilute (2) Acute exacerbation of chronic obstructive pulmonary disease (COPD) Is this a current diagnosis for this admission?: Yes Plan: Continue with current recommendations. Improving. Given her poor respiratory status, we may need to give her oral antibiotics on discharge. Currently on IV Zosyn. Patient continues to smoke half pack per day. not wanting to start meds for quitting at this time. (3) ANASTASIA (acute kidney injury) Is this a current diagnosis for this admission?: Yes Plan: Appears to have worsened. cre trending up. start ivf ns @ 100/hr x 1 L. last echo on file showed normal EF in 2018 (4) CKD (chronic kidney disease) stage 3, GFR 30-59 ml/min Is this a current diagnosis for this admission?: Yes Plan: Appears baseline is in this range. (5) Hypoxemia requiring supplemental oxygen Is this a current diagnosis for this admission?: Yes Plan: Utilizes home oxygen at 3 L via nasal cannula at home. currently on o2 3L - Time Time Spent with patient: 15-24 minutes Smoking Cessation Education: 3 to 10 minutes Medications reviewed and adjusted accordingly: Yes Anticipated discharge: Home
[2019-05-31] MEDS: ATORVASTATIN CALCIUM 10 MG TABLET PO SCH (22:17)
[2019-05-31] MEDS: SODIUM POLYSTYRENE SULFONATE 15 GM/60 ML PO SCH (22:17)
[2019-06-01] MEDS: PIPERACILLIN SODIUM/TAZOBACTAM 3.375 GM in NORMAL SALINE 100 ML IV SCH ×4 (00:04→17:35)
[2019-06-01] MEDS: IPRATROPIUM/ALBUTEROL 0.5-2.5 MG/3 ML AMPUL NEB SCH ×3 (00:17→16:12)
[2019-06-01] MEDS: HEPARIN SOD (PORCINE) 5,000 UNIT/ML 1 ML SYRINGE SUBCUT SCH ×3 (05:35→22:12)
[2019-06-01 05:45] LABS: ABSOLUTE BASOPHILS # (AUTO) 0.1 10^3/uL (0.0-0.2); ABSOLUTE EOSINOPHILS # (AUTO) 0.1 10^3/uL (0.0-0.6); ABSOLUTE LYMPHOCYTES (AUTO) 2.1 10^3/uL (0.5-4.7); ABSOLUTE MONOCYTES (AUTO) 0.7 10^3/uL (0.1-1.4); ABSOLUTE NEUT (AUTO) 5.9 10^3/uL (1.7-8.2); BASOPHILS % (AUTO) 0.6 % (0-2); EOSINOPHILS % (AUTO) 1.6 % (0-6); HEMATOCRIT 29.2 % (36.0-47.0); HEMOGLOBIN 9.5 g/dL (12.0-15.5); LYMPHOCYTES % (AUTO) 23.8 % (13-45); MEAN CORPUSCULAR HEMOGLOBIN 30.8 pg (27.0-33.4); MEAN CORPUSCULAR HGB CONC 32.6 g/dL (32.0-36.0); MEAN CORPUSCULAR VOLUME 94 fl (80-97); MONOCYTES % (AUTO) 7.5 % (3-13); PLATELET COUNT 156 10^3/uL (150-450); RED BLOOD COUNT 3.09 10^6/uL (3.72-5.28); RED CELL DISTRIBUTION WIDTH 14.7 % (11.5-14.0); SEGMENTED NEUTROPHILS % (AUTO) 66.5 % (42-78); TOTAL CELLS COUNTED % (AUTO) 100 %; WHITE BLOOD COUNT 8.9 10^3/uL (4.0-10.5)
[2019-06-01 06:05] LABS: ALANINE AMINOTRANSFERASE 23 U/L (9-52); ALKALINE PHOSPHATASE 71 U/L (38-126); ANION GAP 6 (5-19); ASPARTATE AMINO TRANSFERASE 18 U/L (14-36); BILIRUBIN,DIRECT 0.2 mg/dL (0.0-0.4); BILIRUBIN,TOTAL 0.2 mg/dL (0.2-1.3); BLOOD UREA NITROGEN 36 mg/dL (7-20); CARBON DIOXIDE 29 mmol/L (22-30); CHLORIDE 104 mmol/L (98-107); GLUCOSE 106 mg/dL (75-110); POTASSIUM 4.9 mmol/L (3.6-5.0); SODIUM 139.1 mmol/L (137-145); TOTAL PROTEIN 4.9 g/dL (6.3-8.2)
[2019-06-01] MEDS: HYDROCODONE/ACETAMINOPHEN 5-325 MG TABLET PO PRN ×2 (06:24→18:32)
[2019-06-01] MEDS: INSULIN LISPRO 100 UNIT/ML 3 ML VIAL SUBCUT SCH ×4 (07:43→22:13)
[2019-06-01] MEDS: HYDRALAZINE HCL INJ/PF 20 MG/1 ML SDV IV PRN (07:50)
[2019-06-01] MEDS: CARVEDILOL 6.25 MG TABLET PO SCH ×2 (09:39→22:12)
[2019-06-01] MEDS: LISINOPRIL 5 MG TABLET PO SCH (09:42)
[2019-06-01] MEDS: FLUTICASONE/UMECLIDIN/VILANTER 100-62.5-25 MCG/DOSE IH SCH (09:43)
[2019-06-01] MEDS: GABAPENTIN 400 MG CAPSULE PO SCH ×2 (09:43→22:14)
[2019-06-01] MEDS: PANTOPRAZOLE SODIUM 40 MG TABLET.DR PO SCH (09:43)
[2019-06-01] MEDS: ASPIRIN 81 MG TABLET, ENT COATED PO SCH (09:43)
[2019-06-01] MEDS: SODIUM POLYSTYRENE SULFONATE 15 GM/60 ML PO SCH (09:43)
[2019-06-01] MEDS: ACETAMINOPHEN 325 MG TABLET PO PRN (20:22)
[2019-06-01] MEDS: ATORVASTATIN CALCIUM 10 MG TABLET PO SCH (22:14)
[2019-06-02] MEDS: PIPERACILLIN SODIUM/TAZOBACTAM 3.375 GM in NORMAL SALINE 100 ML IV SCH ×4 (00:07→17:10)
[2019-06-02] MEDS: IPRATROPIUM/ALBUTEROL 0.5-2.5 MG/3 ML AMPUL NEB SCH ×3 (00:09→15:47)
[2019-06-02] MEDS: HEPARIN SOD (PORCINE) 5,000 UNIT/ML 1 ML SYRINGE SUBCUT SCH ×3 (06:46→21:29)
[2019-06-02] MEDS: INSULIN LISPRO 100 UNIT/ML 3 ML VIAL SUBCUT SCH ×4 (07:54→21:31)
[2019-06-02] MEDS: ASPIRIN 81 MG TABLET, ENT COATED PO SCH (09:39)
[2019-06-02] MEDS: LISINOPRIL 5 MG TABLET PO SCH (09:39)
[2019-06-02] MEDS: FLUTICASONE/UMECLIDIN/VILANTER 100-62.5-25 MCG/DOSE IH SCH (09:39)
[2019-06-02] MEDS: CARVEDILOL 6.25 MG TABLET PO SCH ×2 (09:39→21:26)
[2019-06-02] MEDS: GABAPENTIN 400 MG CAPSULE PO SCH ×2 (09:39→21:26)
[2019-06-02] MEDS: PANTOPRAZOLE SODIUM 40 MG TABLET.DR PO SCH (09:39)
[2019-06-02] MEDS: HYDROCODONE/ACETAMINOPHEN 5-325 MG TABLET PO PRN (14:04)
[2019-06-02] MEDS: AMLODIPINE BESYLATE 5 MG TABLET PO SCH (17:10)
[2019-06-02] MEDS: ATORVASTATIN CALCIUM 10 MG TABLET PO SCH (21:26)
[2019-06-02] MEDS: ACETAMINOPHEN 325 MG TABLET PO PRN (21:29)
--- NOTE | 2019-06-02 21:48 | PDOC PROGRESS REPORT ---
Subjective Progress Note for:: 06/02/19 Subjective:: improving. eating okay. no fever/chills. close to baseline. labs look better. Reason For Visit: ANASTASIA ON CKD,HYPERKALEMIA Physical Exam Vital Signs: Temp Pulse Resp BP Pulse Ox 97.4 F 60 19 122/54 L 97 06/02/19 19:38 06/02/19 19:38 06/02/19 19:38 06/02/19 19:38 06/02/19 19:38 Intake & Output 06/01/19 06/02/19 06/03/19 06:59 06:59 06:59 Intake Total 1320 1860 1500 Output Total 650 850 Balance 1320 1210 650 Weight 83.2 kg 83.2 kg General appearance: PRESENT: no acute distress, obese, well-developed, well- nourished Head exam: PRESENT: atraumatic, normocephalic Eye exam: PRESENT: conjunctiva pink, EOMI, PERRLA. ABSENT: scleral icterus Ear exam: PRESENT: normal external ear exam Mouth exam: PRESENT: moist, tongue midline Neck exam: ABSENT: carotid bruit, JVD, lymphadenopathy, thyromegaly Respiratory exam: PRESENT: decreased breath sounds, prolonged expiratory phas, unlabored. ABSENT: rales, rhonchi, wheezes Cardiovascular exam: PRESENT: RRR, +S1, +S2. ABSENT: diastolic murmur, rubs, systolic murmur Pulses: PRESENT: normal dorsalis pedis pul Vascular exam: PRESENT: normal capillary refill GI/Abdominal exam: PRESENT: normal bowel sounds, soft. ABSENT: distended, guarding, mass, organolmegaly, rebound, tenderness Rectal exam: PRESENT: deferred Extremities exam: PRESENT: full ROM. ABSENT: calf tenderness, clubbing, pedal edema Neurological exam: PRESENT: alert, awake, oriented to person, oriented to place, oriented to time, oriented to situation, CN II-XII grossly intact. ABSENT: motor sensory deficit Psychiatric exam: PRESENT: appropriate affect, normal mood. ABSENT: homicidal ideation, suicidal ideation Skin exam: PRESENT: dry, intact, warm. ABSENT: cyanosis, rash Results Laboratory Results: 06/01/19 05:04 06/01/19 05:04 05/27/19 05/27/19 05/28/19 19:05 19:05 03:59 Creatine Kinase 46 CK-MB (CK-2) 1.25 Troponin I < 0.012 < 0.012 NT-Pro-B Natriuret Pep 1620 H Impressions: Chest X-Ray 05/27/19 19:14 IMPRESSION: NO ACUTE DISEASE. Chest/Abdomen CTA 05/27/19 21:22 IMPRESSION: 1. No CT evidence for pulmonary embolism. 2. No acute pulmonary findings. 3. Unchanged right upper lobe nodule 4. Emphysema and atherosclerosis as on prior exam Abdomen X-Ray 05/28/19 05:42 IMPRESSION: No acute findings. Assessment and Plan - Diagnosis (1) Hyperkalemia Is this a current diagnosis for this admission?: Yes Plan: improved with kayexelate and ivf. oral supp on hold. rafael lowered. (2) Acute exacerbation of chronic obstructive pulmonary disease (COPD) Is this a current diagnosis for this admission?: Yes Plan: Continue with current recommendations. Improving. Given her poor respiratory status, we may need to give her oral antibiotics on discharge. o2 dependent at home. 3L Patient continues to smoke half pack per day. not wanting to start meds for quitting at this time. (3) ANASTASIA (acute kidney injury) Is this a current diagnosis for this admission?: Yes Plan: improved with ivf. monitor. remains on fluid restrictions (4) CKD (chronic kidney disease) stage 3, GFR 30-59 ml/min Is this a current diagnosis for this admission?: Yes Plan: Appears baseline is in this range. (5) Hypoxemia requiring supplemental oxygen Is this a current diagnosis for this admission?: Yes Plan: Utilizes home oxygen at 3 L via nasal cannula at home. currently on o2 3L - Time Time Spent with patient: 15-24 minutes Smoking Cessation Education: 3 to 10 minutes Medications reviewed and adjusted accordingly: Yes Anticipated discharge: Home
--- NOTE | 2019-06-02 21:51 | PDOC PROGRESS REPORT ---
Subjective Progress Note for:: 06/01/19 Subjective:: potassium lower. breathing improved. she does not feel safe going home. has cpap at home. bowel movements are good. appetite is good. Reason For Visit: ANASTASIA ON CKD,HYPERKALEMIA Physical Exam Vital Signs: Temp Pulse Resp BP Pulse Ox 97.8 F 63 19 147/59 H 99 06/01/19 16:00 06/01/19 16:14 06/01/19 16:14 06/01/19 16:00 06/01/19 16:14 Intake & Output 05/31/19 06/01/19 06/02/19 06:59 06:59 06:59 Intake Total 1060 1320 340 Balance 1060 1320 340 Weight 82.8 kg 83.2 kg General appearance: PRESENT: no acute distress, obese Head exam: PRESENT: atraumatic, normocephalic Eye exam: PRESENT: conjunctiva pink, EOMI, PERRLA. ABSENT: scleral icterus Ear exam: PRESENT: normal external ear exam Mouth exam: PRESENT: moist, tongue midline Neck exam: ABSENT: carotid bruit, JVD, lymphadenopathy, thyromegaly Respiratory exam: PRESENT: crackles, decreased breath sounds, prolonged expiratory phas, unlabored. ABSENT: rales, rhonchi, wheezes Cardiovascular exam: PRESENT: RRR, +S1, +S2. ABSENT: diastolic murmur, rubs, systolic murmur Pulses: PRESENT: normal dorsalis pedis pul Vascular exam: PRESENT: normal capillary refill GI/Abdominal exam: PRESENT: normal bowel sounds, soft. ABSENT: distended, guarding, mass, organolmegaly, rebound, tenderness Rectal exam: PRESENT: deferred Extremities exam: PRESENT: full ROM. ABSENT: calf tenderness, clubbing, pedal edema Musculoskeletal exam: PRESENT: full ROM Neurological exam: PRESENT: alert, awake, oriented to person, oriented to place, oriented to time, oriented to situation, CN II-XII grossly intact. ABSENT: brendan r sensory deficit Psychiatric exam: PRESENT: appropriate affect, normal mood. ABSENT: homicidal ideation, suicidal ideation Skin exam: PRESENT: dry, intact, warm. ABSENT: cyanosis, rash Results Laboratory Results: 06/01/19 05:04 06/01/19 05:04 06/01/19 06/01/19 05:04 05:04 WBC 8.9 RBC 3.09 L Hgb 9.5 L Hct 29.2 L MCV 94 MCH 30.8 MCHC 32.6 RDW 14.7 H Plt Count 156 Seg Neutrophils % 66.5 Lymphocytes % 23.8 Monocytes % 7.5 Eosinophils % 1.6 Basophils % 0.6 Absolute Neutrophils 5.9 Absolute Lymphocytes 2.1 Absolute Monocytes 0.7 Absolute Eosinophils 0.1 Absolute Basophils 0.1 Sodium 139.1 Potassium 4.9 Chloride 104 Carbon Dioxide 29 Anion Gap 6 BUN 36 H Creatinine 1.05 Est GFR ( Amer) > 60 Est GFR (Non-Af Amer) 51 L Glucose 106 Calcium 8.0 L Magnesium 2.0 Total Bilirubin 0.2 AST 18 ALT 23 Alkaline Phosphatase 71 Total Protein 4.9 L Albumin 3.0 L 05/27/19 05/27/19 05/28/19 19:05 19:05 03:59 Creatine Kinase 46 CK-MB (CK-2) 1.25 Troponin I < 0.012 < 0.012 NT-Pro-B Natriuret Pep 1620 H Impressions: Chest X-Ray 05/27/19 19:14 IMPRESSION: NO ACUTE DISEASE. Chest/Abdomen CTA 05/27/19 21:22 IMPRESSION: 1. No CT evidence for pulmonary embolism. 2. No acute pulmonary findings. 3. Unchanged right upper lobe nodule 4. Emphysema and atherosclerosis as on prior exam Abdomen X-Ray 05/28/19 05:42 IMPRESSION: No acute findings. Assessment and Plan - Diagnosis (1) Hyperkalemia Is this a current diagnosis for this admission?: Yes Plan: improved with kayexelate and ivf. oral supp on hold. rafael lowered. (2) Acute exacerbation of chronic obstructive pulmonary disease (COPD) Is this a current diagnosis for this admission?: Yes Plan: Continue with current recommendations. Improving. Given her poor respiratory status, we may need to give her oral antibiotics on discharge. o2 dependent at home. 3L Patient continues to smoke half pack per day. not wanting to start meds for quitting at this time. (3) ANASTASIA (acute kidney injury) Is this a current diagnosis for this admission?: Yes Plan: improved with ivf. monitor. remains on fluid restrictions (4) CKD (chronic kidney disease) stage 3, GFR 30-59 ml/min Is this a current diagnosis for this admission?: Yes Plan: Appears baseline is in this range. (5) Hypoxemia requiring supplemental oxygen Is this a current diagnosis for this admission?: Yes Plan: Utilizes home oxygen at 3 L via nasal cannula at home. currently on o2 3L - Time Time Spent with patient: 15-24 minutes Smoking Cessation Education: 3 to 10 minutes Medications reviewed and adjusted accordingly: Yes Anticipated discharge: Home
[2019-06-03] MEDS: IPRATROPIUM/ALBUTEROL 0.5-2.5 MG/3 ML AMPUL NEB SCH ×3 (00:06→16:39)
[2019-06-03] MEDS: PIPERACILLIN SODIUM/TAZOBACTAM 3.375 GM in NORMAL SALINE 100 ML IV SCH ×2 (00:57→06:02)
[2019-06-03] MEDS: HYDROCODONE/ACETAMINOPHEN 5-325 MG TABLET PO PRN ×2 (01:05→16:49)
[2019-06-03 05:15] LABS: HEMATOCRIT 28.2 % (36.0-47.0); HEMOGLOBIN 9.3 g/dL (12.0-15.5); MEAN CORPUSCULAR HEMOGLOBIN 30.8 pg (27.0-33.4); MEAN CORPUSCULAR HGB CONC 32.8 g/dL (32.0-36.0); MEAN CORPUSCULAR VOLUME 94 fl (80-97); PLATELET COUNT 178 10^3/uL (150-450); RED CELL DISTRIBUTION WIDTH 14.8 % (11.5-14.0)
[2019-06-03 05:42] LABS: ANION GAP 7 (5-19); BLOOD UREA NITROGEN 30 mg/dL (7-20); CALCIUM 8.1 mg/dL (8.4-10.2); CARBON DIOXIDE 28 mmol/L (22-30); CHLORIDE 106 mmol/L (98-107); GLUCOSE 144 mg/dL (75-110); POTASSIUM 4.6 mmol/L (3.6-5.0); SODIUM 140.5 mmol/L (137-145)
[2019-06-03 05:45] LABS: ABSOLUTE LYMPHOCYTES# (MANUAL) 2.5 10^3/uL (0.5-4.7); ABSOLUTE MONOCYTES # (MANUAL) 0.6 10^3/uL (0.1-1.4); ANISOCYTOSIS SLIGHT; BASOPHILS % (MANUAL) 0 % (0-2); EOSINOPHILS % (MANUAL) 3 % (0-6); LYMPHOCYTES % (MANUAL) 31 % (13-45); MONOCYTES % (MANUAL) 7 % (3-13); PLATELET COMMENT ADEQUATE; SEGMENTED NEUTROPHILS % (MAN) 59 % (42-78); TOTAL CELLS COUNTED 100
[2019-06-03] MEDS: HEPARIN SOD (PORCINE) 5,000 UNIT/ML 1 ML SYRINGE SUBCUT SCH ×3 (06:02→21:22)
[2019-06-03] MEDS: INSULIN LISPRO 100 UNIT/ML 3 ML VIAL SUBCUT SCH ×4 (08:08→21:44)
[2019-06-03] MEDS: PANTOPRAZOLE SODIUM 40 MG TABLET.DR PO SCH (09:36)
[2019-06-03] MEDS: CARVEDILOL 6.25 MG TABLET PO SCH ×2 (09:36→21:23)
[2019-06-03] MEDS: ASPIRIN 81 MG TABLET, ENT COATED PO SCH (09:36)
[2019-06-03] MEDS: LISINOPRIL 5 MG TABLET PO SCH (09:36)
[2019-06-03] MEDS: GABAPENTIN 400 MG CAPSULE PO SCH ×2 (09:36→21:23)
[2019-06-03] MEDS: AMLODIPINE BESYLATE 5 MG TABLET PO SCH (09:36)
[2019-06-03] MEDS: FLUTICASONE/UMECLIDIN/VILANTER 100-62.5-25 MCG/DOSE IH SCH (11:12)
[2019-06-03] MEDS: ACETAMINOPHEN 325 MG TABLET PO PRN ×2 (12:23→21:43)
--- NOTE | 2019-06-03 13:31 | PDOC PROGRESS REPORT ---
Subjective Reason For Visit: ANASTASIA ON CKD,HYPERKALEMIA Physical Exam Vital Signs: Temp Pulse Resp BP Pulse Ox 97.8 F 61 15 137/48 H 95 06/03/19 08:00 06/03/19 08:39 06/03/19 08:39 06/03/19 08:00 06/03/19 08:39 Intake & Output 06/02/19 06/03/19 06/04/19 06:59 06:59 06:59 Intake Total 1860 1940 480 Output Total 650 1150 Balance 1210 790 480 Weight 83.2 kg 84.2 kg Results Laboratory Results: 06/03/19 04:09 06/03/19 04:09 06/03/19 06/03/19 04:09 04:09 WBC 8.0 RBC 3.00 L Hgb 9.3 L Hct 28.2 L MCV 94 MCH 30.8 MCHC 32.8 RDW 14.8 H Plt Count 178 Seg Neutrophils % Not Reportable Lymphocytes % Not Reportable Monocytes % Not Reportable Eosinophils % Not Reportable Basophils % Not Reportable Absolute Neutrophils Not Reportable Absolute Lymphocytes Not Reportable Absolute Monocytes Not Reportable Absolute Eosinophils Not Reportable Absolute Basophils Not Reportable Sodium 140.5 Potassium 4.6 Chloride 106 Carbon Dioxide 28 Anion Gap 7 BUN 30 H Creatinine 1.12 Est GFR ( Amer) 58 L Est GFR (Non-Af Amer) 48 L Glucose 144 H Calcium 8.1 L 05/29/19 08:47 Blood Blood Culture - Final NO GROWTH IN 5 DAYS 05/29/19 09:00 Blood Blood Culture - Final NO GROWTH IN 5 DAYS 05/27/19 05/27/19 05/28/19 19:05 19:05 03:59 Creatine Kinase 46 CK-MB (CK-2) 1.25 Troponin I < 0.012 < 0.012 NT-Pro-B Natriuret Pep 1620 H Impressions: Chest X-Ray 05/27/19 19:14 IMPRESSION: NO ACUTE DISEASE. Chest/Abdomen CTA 05/27/19 21:22 IMPRESSION: 1. No CT evidence for pulmonary embolism. 2. No acute pulmonary findings. 3. Unchanged right upper lobe nodule 4. Emphysema and atherosclerosis as on prior exam Abdomen X-Ray 05/28/19 05:42 IMPRESSION: No acute findings. Assessment and Plan - Diagnosis (1) Hyperkalemia Is this a current diagnosis for this admission?: Yes Plan: Resolved (2) Acute on chronic respiratory failure with hypoxemia Is this a current diagnosis for this admission?: Yes Plan: Continue supplemental oxygen and intermittent BiPAP. Patient reports this her shortness of breath is relatively improving. (3) COPD exacerbation Is this a current diagnosis for this admission?: Yes Plan: Continue supplemental oxygen and bronchodilator. (4) ANASTASIA on stage III CKD Is this a current diagnosis for this admission?: Yes Plan: Improving. His creatinine at admission was 3.08 today it is 1.1. (5) Acute on chronic diastolic (congestive) heart failure Is this a current diagnosis for this admission?: Yes Plan: Continue gentle diuresis. (6) Coronary artery disease Qualifiers: Coronary Disease-Associated Artery/Lesion type: [place] artery Is this a current diagnosis for this admission?: Yes Plan: No anginal symptoms (7) Hypothyroidism Qualifiers: Hypothyroidism type: acquired Qualified Code(s): E03.9 - Hypothyroidism, unspecified Is this a current diagnosis for this admission?: Yes Plan: Continue levothyroxine (8) Type 2 diabetes mellitus Is this a current diagnosis for this admission?: Yes Plan: Continue metformin
[2019-06-03] MEDS ORDERED: FUROSEMIDE INJ/PF 20 MG/2 ML SDV IV ONE (13:37)
[2019-06-03] MEDS ORDERED: METHYLPREDNISOLONE INJ 40 MG/1 ML SDV IV ONE (13:38)
[2019-06-03] MEDS: METHYLPREDNISOLONE INJ 40 MG/1 ML SDV IV SCH ×2 (14:02→21:23)
[2019-06-03] MEDS: TIOTROPIUM BROMIDE DPI 5 CAP/KIT (18 MCG/CAP) IH SCH (14:41)
[2019-06-03] MEDS: ATORVASTATIN CALCIUM 10 MG TABLET PO SCH (21:23)
[2019-06-04] MEDS: IPRATROPIUM/ALBUTEROL 0.5-2.5 MG/3 ML AMPUL NEB SCH ×3 (00:49→16:02)
[2019-06-04] MEDS: HYDRALAZINE HCL INJ/PF 20 MG/1 ML SDV IV PRN ×2 (04:05→12:05)
[2019-06-04] MEDS: HYDROCODONE/ACETAMINOPHEN 5-325 MG TABLET PO PRN ×2 (05:32→18:00)
[2019-06-04] MEDS: METHYLPREDNISOLONE INJ 40 MG/1 ML SDV IV SCH ×3 (05:33→22:25)
[2019-06-04] MEDS: HEPARIN SOD (PORCINE) 5,000 UNIT/ML 1 ML SYRINGE SUBCUT SCH ×3 (05:37→22:23)
[2019-06-04] MEDS: INSULIN LISPRO 100 UNIT/ML 3 ML VIAL SUBCUT SCH ×4 (07:48→22:23)
[2019-06-04] MEDS: LISINOPRIL 5 MG TABLET PO SCH (09:00)
[2019-06-04] MEDS: PANTOPRAZOLE SODIUM 40 MG TABLET.DR PO SCH (09:01)
[2019-06-04] MEDS: CARVEDILOL 6.25 MG TABLET PO SCH ×2 (09:01→22:25)
[2019-06-04] MEDS: GABAPENTIN 400 MG CAPSULE PO SCH ×2 (09:01→22:25)
[2019-06-04] MEDS: AMLODIPINE BESYLATE 5 MG TABLET PO SCH (09:01)
[2019-06-04] MEDS: TIOTROPIUM BROMIDE DPI 5 CAP/KIT (18 MCG/CAP) IH SCH (09:01)
[2019-06-04] MEDS: FLUTICASONE/UMECLIDIN/VILANTER 100-62.5-25 MCG/DOSE IH SCH (09:01)
[2019-06-04] MEDS: ASPIRIN 81 MG TABLET, ENT COATED PO SCH (09:01)
[2019-06-04] MEDS: FUROSEMIDE INJ/PF 20 MG/2 ML SDV IV SCH (09:12)
[2019-06-04 11:40] LABS: APPEARANCE,URINE CLEAR; BILIRUBIN,URINE NEGATIVE (NEGATIVE); COLOR,URINE STRAW; GLUCOSE, URINE NEGATIVE (NEGATIVE); KETONES,URINE NEGATIVE (NEGATIVE); LEUKOCYTE ESTERASE,URINE NEGATIVE (NEGATIVE); NITRITE,URINE NEGATIVE (NEGATIVE); PROTEIN,URINE NEGATIVE (NEGATIVE); URINE SPECIFIC GRAVITY 1.009; UROBILINOGEN,URINE NEGATIVE mg/dL (<2.0)
--- NOTE | 2019-06-04 13:02 | PDOC PROGRESS REPORT ---
Subjective Progress Note for:: 06/04/19 Subjective:: This is a 73 years old female patient with multiple comorbidities including diastolic congestive heart failure, stage III CKD, coronary artery disease, history of DVT, hypertension, hyperlipidemia, type 2 diabetes mellitus and hypothyroidism presents with chief complaint of shortness of breath. Patient has chronic respiratory failure due to O2 dependent COPD for which she has been on supplemental oxygen 14/06. Patient has also obstructive sleep apnea for which she uses CPAP at night. At admission patient found to have elevated creatinine of 3.08 and BNP of 1620. It has been managed with bronchodilator, supplemental oxygen and diuretics. This morning patient seen sitting up in bed. She is still in mild distress but she reports this some improvement in her breathing. 06/04/2019: Patient seen and examined while she is on full mask BiPAP. She is awake alert and oriented. Patient reported that she has progressive improvement in her breathing. Echo was done and the results pending. Her blood works are unremarkable and her creatinine has been improving it was 1.41 today it is 1.05. If she remains stable patient is potential discharge for tomorrow. Reason For Visit: ANASTASIA ON CKD,HYPERKALEMIA Physical Exam Vital Signs: Temp Pulse Resp BP Pulse Ox 97.6 F 61 24 H 183/69 H 99 06/04/19 07:00 06/04/19 07:00 06/04/19 07:00 06/04/19 07:00 06/04/19 07:00 Intake & Output 06/03/19 06/04/19 06/05/19 06:59 06:59 06:59 Intake Total 1940 1440 Output Total 1150 300 Balance 790 1140 Weight 84.2 kg 81.8 kg General appearance: PRESENT: no acute distress Head exam: PRESENT: atraumatic Eye exam: PRESENT: conjunctiva pink Neck exam: ABSENT: carotid bruit - She may, JVD, lymphadenopathy, thyromegaly Respiratory exam: PRESENT: decreased breath sounds. ABSENT: rales, rhonchi, wheezes Cardiovascular exam: PRESENT: RRR. ABSENT: diastolic murmur, rubs, systolic murmur GI/Abdominal exam: PRESENT: normal bowel sounds, soft. ABSENT: distended, guarding, mass, organolmegaly, rebound, tenderness Results Laboratory Results: 06/03/19 04:09 06/03/19 04:09 06/04/19 10:15 Urine Color STRAW Urine Appearance CLEAR Urine pH 7.0 Ur Specific [place] 1.009 Urine Protein NEGATIVE Urine Glucose (UA) NEGATIVE Urine Ketones NEGATIVE Urine Blood NEGATIVE Urine Nitrite NEGATIVE Ur Leukocyte Esterase NEGATIVE Urine WBC (Auto) 0 05/29/19 08:47 Blood Blood Culture - Final NO GROWTH IN 5 DAYS 05/29/19 09:00 Blood Blood Culture - Final NO GROWTH IN 5 DAYS 05/27/19 05/27/19 05/28/19 19:05 19:05 03:59 Creatine Kinase 46 CK-MB (CK-2) 1.25 Troponin I < 0.012 < 0.012 NT-Pro-B Natriuret Pep 1620 H Impressions: Chest X-Ray 05/27/19 19:14 IMPRESSION: NO ACUTE DISEASE. Chest/Abdomen CTA 05/27/19 21:22 IMPRESSION: 1. No CT evidence for pulmonary embolism. 2. No acute pulmonary findings. 3. Unchanged right upper lobe nodule 4. Emphysema and atherosclerosis as on prior exam Abdomen X-Ray 05/28/19 05:42 IMPRESSION: No acute findings. Assessment and Plan - Diagnosis (1) Hyperkalemia Is this a current diagnosis for this admission?: Yes Plan: Resolved (2) Acute on chronic respiratory failure with hypoxemia Is this a current diagnosis for this admission?: Yes Plan: Continue supplemental oxygen and intermittent BiPAP. Patient reports this her shortness of breath is relatively improving. (3) COPD exacerbation Is this a current diagnosis for this admission?: Yes Plan: Continue supplemental oxygen and bronchodilator. (4) ANASTASIA on stage III CKD Is this a current diagnosis for this admission?: Yes Plan: Improving. His creatinine at admission was 3.08 today it is 1.1. (5) Acute on chronic diastolic (congestive) heart failure Is this a current diagnosis for this admission?: Yes Plan: Continue gentle diuresis. (6) Coronary artery disease Qualifiers: Coronary Disease-Associated Artery/Lesion type: [place] artery Is this a current diagnosis for this admission?: Yes Plan: No anginal symptoms (7) Hypothyroidism Qualifiers: Hypothyroidism type: acquired Qualified Code(s): E03.9 - Hypothyroidism, unspecified Is this a current diagnosis for this admission?: Yes Plan: Continue levothyroxine (8) Type 2 diabetes mellitus Is this a current diagnosis for this admission?: Yes
[2019-06-04] MEDS: ACETAMINOPHEN 325 MG TABLET PO PRN ×2 (13:17→22:24)
[2019-06-04] MEDS: ATORVASTATIN CALCIUM 10 MG TABLET PO SCH (22:25)
[2019-06-05] MEDS: IPRATROPIUM/ALBUTEROL 0.5-2.5 MG/3 ML AMPUL NEB SCH ×2 (00:18→08:32)
[2019-06-05] MEDS: HEPARIN SOD (PORCINE) 5,000 UNIT/ML 1 ML SYRINGE SUBCUT SCH (06:39)
[2019-06-05] MEDS: METHYLPREDNISOLONE INJ 40 MG/1 ML SDV IV SCH (06:42)
[2019-06-05] MEDS: HYDROCODONE/ACETAMINOPHEN 5-325 MG TABLET PO PRN (07:47)
[2019-06-05] MEDS: INSULIN LISPRO 100 UNIT/ML 3 ML VIAL SUBCUT SCH (07:48)
--- NOTE | 2019-06-05 09:01 | PDOC DISCHARGE SUMMARY ---
General - Admit/Disc Date/PCP Admission Date/Primary Care Provider: 05/31/19 10:28 STEVE SCANLON Discharge Date: 06/05/19 - Discharge Diagnosis (1) Hyperkalemia Is this a current diagnosis for this admission?: Yes (2) Acute on chronic respiratory failure with hypoxemia Is this a current diagnosis for this admission?: Yes (3) COPD exacerbation Is this a current diagnosis for this admission?: Yes (4) ANASTASIA on stage III CKD Is this a current diagnosis for this admission?: Yes (5) Acute on chronic diastolic (congestive) heart failure Is this a current diagnosis for this admission?: Yes (6) Coronary artery disease Is this a current diagnosis for this admission?: Yes (7) Hypothyroidism Is this a current diagnosis for this admission?: Yes (8) Type 2 diabetes mellitus Is this a current diagnosis for this admission?: Yes - Additional Information Resuscitation Status: Full Code Discharge Diet: Cardiac, Diabetic Discharge Activity: Activity As Tolerated, Balance Activity w/Rest, Weigh Daily Home Medications: Albuterol Sulfate [Proair HFA Inhalation Aerosol 8.5 gm MDI] 2 puff IH Q4HP PRN 05/08/19 Aspirin [Adult Low Dose Aspirin EC] 81 mg PO DAILY 05/08/19 Atorvastatin Calcium [Lipitor 10 mg Tablet] 10 mg PO QHS 05/08/19 Gabapentin [Neurontin 400 mg Capsule] 400 mg PO Q12 05/08/19 Hydrocodone/Acetaminophen [Tatamy 5-325 mg Tablet] 1 tab PO Q12HP PRN 05/08/19 Lisinopril [Zestril] 5 mg PO DAILY 05/08/19 Metformin HCl [Glucophage 500 mg Tablet] 500 mg PO BID 05/08/19 Fluticasone/Umeclidin/Vilanter [Trelegy 100-62.5-25 Mcg Ellipta 14 Dose/Dpi] 1 puff IH DAILY #1 inhaler 05/11/19 Dexlansoprazole [Dexilant 60 mg Capsule] 60 mg PO DAILY 05/27/19 Fluticasone Propionate [Flonase Nasal [place] 50 Mcg/[place] 16 gm] 1 spray NASL DAILYP PRN 05/28/19 History of Present Illness History of Present Illness: GAVI PEDRO is a 73 year old female with a past medical history of left bundle branch block, home oxygen dependent COPD, allergic sinusitis, chronic bronchitis, GERD, obstructive sleep apnea and mild to moderate diastolic heart failure. She presents with 24 hours of shortness of breath and a nonproductive cough prompting evaluation in the emergency room where she is found to have a BNP of 1620. She is treated for bronchitis and referred to the hospitalist for admission. Patient denies medication changes but admits BiPAP noncompliance. She is pain-free. Hospital Course Hospital Course: This is a 73 years old female patient with multiple comorbidities including diastolic congestive heart failure, stage III CKD, coronary artery disease, history of DVT, hypertension, hyperlipidemia, type 2 diabetes mellitus and hypothyroidism presents with chief complaint of shortness of breath. Patient has chronic respiratory failure due to O2 dependent COPD for which she has been on supplemental oxygen 14/06. Patient has also obstructive sleep apnea for which she uses CPAP at night. At admission patient found to have elevated creatinine of 3.08 and BNP of 1620. It has been managed with bronchodilator, supplemental oxygen and diuretics. This morning patient seen sitting up in bed. She is still in mild distress but she reports this some improvement in her breathing. 06/04/2019: Patient seen and examined while she is on full mask BiPAP. She is awake alert and oriented. Patient reported that she has progressive improvement in her breathing. Echo was done and the results pending. Her blood works are unremarkable and her creatinine has been improving it was 1.41 today it is 1.05. If she remains stable patient is potential discharge for tomorrow. 06/05/2019: Patient seen resting in bed comfortably. She is awake alert oriented she is saturating 96% while she is on oxygen via nasal cannula. She does not have any new complaints. Her blood work which was done 2 days ago is stable her vital signs are also within normal limits. Patient is stable enough to go home today. I will send her with prednisone 40 mg p.o. daily for 5 days and Coreg 12.5 mg twice a day and continue the rest of her home medication. Physical Exam Vital Signs: Temp Pulse Resp BP Pulse Ox 97.5 F 60 15 122/53 L 93 06/05/19 03:52 06/05/19 08:33 06/05/19 08:33 06/05/19 03:52 06/05/19 08:33 Intake & Output 06/04/19 06/05/19 06/06/19 06:59 06:59 06:59 Intake Total 1440 1920 Output Total 300 2200 Balance 1140 -280 Weight 81.8 kg 84 kg General appearance: PRESENT: mild distress Head exam: PRESENT: atraumatic Eye exam: PRESENT: conjunctiva pink Neck exam: ABSENT: carotid bruit, JVD, lymphadenopathy, thyromegaly Respiratory exam: PRESENT: crackles, decreased breath sounds Cardiovascular exam: PRESENT: RRR. ABSENT: diastolic murmur, rubs, systolic murmur GI/Abdominal exam: PRESENT: normal bowel sounds, soft. ABSENT: distended, guarding, mass, organolmegaly, rebound, tenderness Neurological exam: PRESENT: alert, awake, oriented to person, oriented to place, oriented to time, oriented to situation Results Laboratory Results: 06/03/19 04:09 06/03/19 04:09 06/04/19 10:15 Urine Color STRAW Urine Appearance CLEAR Urine pH 7.0 Ur Specific [place] 1.009 Urine Protein NEGATIVE Urine Glucose (UA) NEGATIVE Urine Ketones NEGATIVE Urine Blood NEGATIVE Urine Nitrite NEGATIVE Ur Leukocyte Esterase NEGATIVE Urine WBC (Auto) 0 05/27/19 05/27/19 05/28/19 19:05 19:05 03:59 Creatine Kinase 46 CK-MB (CK-2) 1.25 Troponin I < 0.012 < 0.012 NT-Pro-B Natriuret Pep 1620 H Impressions: Chest X-Ray 05/27/19 19:14 IMPRESSION: NO ACUTE DISEASE. Chest/Abdomen CTA 05/27/19 21:22 IMPRESSION: 1. No CT evidence for pulmonary embolism. 2. No acute pulmonary findings. 3. Unchanged right upper lobe nodule 4. Emphysema and atherosclerosis as on prior exam Abdomen X-Ray 05/28/19 05:42 IMPRESSION: No acute findings. Qualifiers - * PATIENT BEING DISCHARGED WITH ANY OF THE FOLLOWING DIAGNOSIS: No Acute Heart Failure - Is this a Heart Failure Patient?: Yes Documentation of LVEF assessment?: Yes LVEF < 40%?: No- if no continue to question #3 3. Anticoagulant therapy for permanect/persistent/paraoxysmal Afib or Aflutter: N/A Follow-up Appointment scheduled within 7 days?: Yes
[2019-06-05] MEDS: PANTOPRAZOLE SODIUM 40 MG TABLET.DR PO SCH (09:14)
[2019-06-05] MEDS: CARVEDILOL 6.25 MG TABLET PO SCH (09:14)
[2019-06-05] MEDS: AMLODIPINE BESYLATE 5 MG TABLET PO SCH (09:14)
[2019-06-05] MEDS: GABAPENTIN 400 MG CAPSULE PO SCH (09:14)
[2019-06-05] MEDS: LISINOPRIL 5 MG TABLET PO SCH (09:14)
[2019-06-05] MEDS: FUROSEMIDE INJ/PF 20 MG/2 ML SDV IV SCH (09:15)
[2019-06-05] MEDS: ASPIRIN 81 MG TABLET, ENT COATED PO SCH (09:15)
[2019-06-05] MEDS: TIOTROPIUM BROMIDE DPI 5 CAP/KIT (18 MCG/CAP) IH SCH (09:15)
[2019-06-05] MEDS: FLUTICASONE/UMECLIDIN/VILANTER 100-62.5-25 MCG/DOSE IH SCH (09:15)
[2019-06-05 09:34] VITALS: BP 137/49
== END 2019-06-05 10:48 | disposition home or self-care (01) | DRG 291 ==
LOC: ER 18:58 → INTOOBSV 05-28 00:12 → EH 05-28 00:12 → 4N 05-28 12:36 → OBSVTOIN 05-31 10:28
PROVIDERS: ADMIT Internal Medicine; ATTEND Internal Medicine
DX: I13.0 Hypertensive heart and chronic kidney disease with heart failure and stage 1 through stage 4 chronic kidney disease, or unspecified chronic kidney disease (principal); I50.33 Acute on chronic diastolic (congestive) heart failure; J96.21 Acute and chronic respiratory failure with hypoxia; J44.1 Chronic obstructive pulmonary disease with (acute) exacerbation; R78.81 Bacteremia; N17.9 Acute kidney failure, unspecified; E87.5 Hyperkalemia; N18.3 Chronic kidney disease, stage 3 (moderate); E11.22 Type 2 diabetes mellitus with diabetic chronic kidney disease; E03.9 Hypothyroidism, unspecified; E11.65 Type 2 diabetes mellitus with hyperglycemia; I25.10 Atherosclerotic heart disease of native coronary artery without angina pectoris; I44.7 Left bundle-branch block, unspecified; K21.9 Gastro-esophageal reflux disease without esophagitis; G47.33 Obstructive sleep apnea (adult) (pediatric); Z99.81 Dependence on supplemental oxygen; Z86.718 Personal history of other venous thrombosis and embolism; Z79.82 Long term (current) use of aspirin; Z79.51 Long term (current) use of inhaled steroids; Z79.899 Other long term (current) drug therapy; Z79.84 Long term (current) use of oral hypoglycemic drugs
CPT/HCPCS: 36415; 71045; 71275; 74019; 80048; 80053; 81001; 82550; 82553; 82962; 83690; 83735; 83880; 84484; 85025; 85027; 85379; 87040; 87077; 87186; 93005; 93010; 93306; 94640; 94660; 94667; 94668; 94799; G0378; J0360; J1644; J1815; J1940; J1956; J2543; J2920; J2930; J3475; J3490; J7030; J7050; J7620

== ENCOUNTER 2019-06-13 17:37 | Inpatient (IN) | payer MEDICARE ==
--- NOTE | 2019-06-13 18:25 | ER Document Report ---
ED Medical Screen (RME) - General Chief Complaint: Breathing Difficulty Stated Complaint: DIFFICULTY BREATHING Time Seen by Provider: 06/13/19 18:17 Primary Care Provider: WILMAR BENSON FNP-C [Primary Care Provider] - Follow up as needed Mode of Arrival: Wheelchair Information source: Patient, Relative Notes: Patient is a 73-year-old female with COPD on 3 L of oxygen continuously who presents to the ER today for shortness of breath and chest pain that all started today. Patient also admits to abdominal pain and low back pain, she cannot really localize these things for me. TRAVEL OUTSIDE OF THE [place] IN LAST 30 DAYS: No - Related Data Allergies/Adverse Reactions: ibuprofen [From Motrin] Allergy (Intermediate, Verified 06/13/19 17:38) RASH/UTICARTIA Past Medical History - General Information source: Patient, Relative - Past Medical History Cardiac Medical History: Reports: Hx Congestive Heart Failure, Hx Coronary Artery Disease, Hx DVT, Hx Hypertension Denies: Hx Atrial Fibrillation, Hx Heart Attack, Hx Heart Murmur Pulmonary Medical History: Reports: Hx Asthma, Hx COPD, Hx Pneumonia Denies: Hx Bronchitis, Hx Respiratory Failure, Hx Sleep Apnea, Hx Tuberculosis Neurological Medical History: Denies: Hx Cerebrovascular Accident, Hx Seizures Endocrine Medical History: Reports: Hx Diabetes Mellitus Type 2. Denies: Hx Diabetes Mellitus Type 1, Hx Hyperthyroidism, Hx Hypothyroidism Renal/ Medical History: Reports: Hx Renal Insufficiency. Denies: Hx Peritoneal Dialysis GI Medical History: Reports: Hx Diverticulitis, Hx Gastroesophageal Reflux Disease. Denies: Hx Cirrhosis, Hx Crohn's Disease, Hx Hepatitis, Hx Hiatal Hernia, Hx Pancreatitis, Hx Ulcer - ?, Hx Ulcerative Colitis Musculoskeltal Medical History: Reports Hx Arthritis, Denies Hx Gout, Denies Hx Systemic Lupus Erythematosus Skin Medical History: Denies Hx Eczema, Denies Hx Psoriasis Psychiatric Medical History: Denies: Hx Depression Traumatic Medical History: Reports: Hx Fractures - several broken ribs Infectious Medical History: Denies: Hx Hepatitis Past Surgical History: Reports: Hx Appendectomy, Hx Cholecystectomy, Hx Herniorrhaphy, Hx Hysterectomy, Hx Orthopedic Surgery - rotator cuff. Denies: Hx Mastectomy, Hx Open Heart Surgery, Hx Pacemaker - Immunizations Immunizations up to date: Yes Hx Diphtheria, Pertussis, Tetanus Vaccination: No History of Influenza Vaccine for 08/2017 - 01/2018 Season: Yes Influenza Administration Date for 08/2017 - 01/2018 Season: 08/22/18 Review of Systems - Review of Systems Cardiovascular: See HPI Respiratory: See HPI Gastrointestinal: See HPI Physical Exam - Vital signs Vitals: Temp Pulse Resp BP Pulse Ox 97.8 F 72 20 133/55 H 89 L 06/13/19 18:02 06/13/19 18:02 06/13/19 18:02 06/13/19 18:02 06/13/19 18:02 - Notes Notes: PHYSICAL EXAMINATION: GENERAL: Chronically ill appearing on nasal cannula oxygen, mildly labored breathing, and mild acute distress. LUNGS: CTAB and equal. No wheezes rales or rhonchi. HEART: Regular rate and rhythm without murmurs ABDOMEN: Soft, no tenderness. No guarding, no rebound Course - Vital Signs Vital signs: Temp Pulse Resp BP Pulse Ox 97.8 F 72 20 133/55 H 89 L 06/13/19 18:02 06/13/19 18:02 06/13/19 18:02 06/13/19 18:02 06/13/19 18:02 Doctor's Discharge - Discharge Referrals: WILMAR BENSON FNP-C [Primary Care Provider] - Follow up as needed
--- NOTE | 2019-06-13 19:36 | RADIOLOGY REPORT (SQ) ---
EXAM DESCRIPTION: CHEST SINGLE VIEW COMPLETED DATE/TIME: 06/13/2019 7:08 pm REASON FOR STUDY: sob, cough COMPARISON: 05/27/2019 And 02/04/2019 TECHNIQUE: Single frontal radiographic view of the chest acquired. NUMBER OF VIEWS: One view. LIMITATIONS: None. FINDINGS: LUNGS AND PLEURA: No pneumothorax. No consolidation or pleural effusion. Similar right-si ded nodularity. MEDIASTINUM AND HILAR STRUCTURES: Stable. HEART AND VASCULAR STRUCTURES: Stable. BONES: No acute findings. HARDWARE: None in the chest. OTHER: No other significant finding. IMPRESSION: NO ACUTE FINDINGS. TECHNICAL DOCUMENTATION: JOB ID: [id number] [place]-72 2010 [employer]- All Rights Reserved Reading location - IP/workstation name: [email or web address]
[2019-06-13 20:44] LABS: ABSOLUTE BASOPHILS # (AUTO) 0.2 10^3/uL (0.0-0.2); ABSOLUTE EOSINOPHILS # (AUTO) 0.1 10^3/uL (0.0-0.6); ABSOLUTE LYMPHOCYTES (AUTO) 2.3 10^3/uL (0.5-4.7); ABSOLUTE MONOCYTES (AUTO) 1.2 10^3/uL (0.1-1.4); BASOPHILS % (AUTO) 1.3 % (0-2); EOSINOPHILS % (AUTO) 0.5 % (0-6); LYMPHOCYTES % (AUTO) 14.7 % (13-45); MEAN CORPUSCULAR HEMOGLOBIN 30.1 pg (27.0-33.4); MEAN CORPUSCULAR HGB CONC 32.2 g/dL (32.0-36.0); MEAN CORPUSCULAR VOLUME 93 fl (80-97); MONOCYTES % (AUTO) 7.4 % (3-13); PLATELET COUNT 201 10^3/uL (150-450); RED BLOOD COUNT 3.64 10^6/uL (3.72-5.28); RED CELL DISTRIBUTION WIDTH 14.7 % (11.5-14.0); SEGMENTED NEUTROPHILS % (AUTO) 76.1 % (42-78); TOTAL CELLS COUNTED % (AUTO) 100 %; WHITE BLOOD COUNT 15.8 10^3/uL (4.0-10.5)
[2019-06-13] MEDS ORDERED: IPRATROPIUM/ALBUTEROL 0.5-2.5 MG/3 ML AMPUL NEB ONE (20:44)
[2019-06-13] MEDS ORDERED: ALBUTEROL SULFATE 0.083% NEB 2.5 MG/3 ML AMPUL NEB ONE (20:44)
[2019-06-13] MEDS ORDERED: METHYLPREDNISOLONE INJ 125 MG/2 ML SDV IV ONE (20:44)
[2019-06-13] MEDS ORDERED: ACETAMINOPHEN 325 MG TABLET PO ONE (20:45)
--- NOTE | 2019-06-13 20:50 | ER Document Report ---
ED General - General Chief Complaint: Breathing Difficulty Stated Complaint: DIFFICULTY BREATHING Time Seen by Provider: 06/13/19 18:17 Primary Care Provider: WILMAR BENSON FNP-C [Primary Care Provider] - Follow up as needed Mode of Arrival: Wheelchair TRAVEL OUTSIDE OF THE [place] IN LAST 30 DAYS: No - HPI Notes: Patient is a 73-year-old female that presents to the emergency department for chief complaint of shortness of breath. Patient reports at about 3 PM today she started having a heaviness in her chest that she describes as somebody standing on top of her. It was across her entire chest. The sensation did not radiate and she denies any aggravating or relieving factors. She states at that time she had acute onset of increased shortness of breath as well. She does have a history of COPD and wears 3 L nasal cannula at all times. She states she used for home nebulizer since 3 PM with minimal improvement of her symptoms. She states that after an hour the chest pain resolved and has not reoccurred. She believes she had a normal stre ss test last year and denies any history of MO. She does states she has a history of congestive heart failure but is not on Lasix. She states she has felt like her feet were more swollen today than usual. Patient is also complaining of a pain in her suprapubic region that radiates into her low back. She states sometimes she gets this pain and nobody can tell her why. This is not a new pain for her and she has not taken any medication at home. She denies associated nausea/vomiting, diarrhea, dysuria and urinary frequency. Past Medical History: CHF, hypertension, obesity, COPD Past Surgical History: Reviewed in chart Social History: Reviewed in chart Family History: Reviewed and noncontributory for presenting illness Allergies: Reviewed, see documented allergy list. REVIEW OF SYSTEMS: CONSTITUTIONAL : No fever No chills No diaphoresis No recent illness EENT: No vision changes No congestion No sore throat CARDIOVASCULAR: chest pain No palpitations RESPIRATORY: shortness of breath No cough difficulty breathing GASTROINTESTINAL: abdominal pain No nausea No vomiting No diarrhea GENITOURINARY: No dysuria No hematuria No difficulty urinating MUSCULOSKELETAL: back pain No leg pain No arm pain SKIN: No rashes No lesions LYMPHATIC: No swollen, enlarged glands. NEUROLOGICAL: No lightheadedness No headache No weakness No paresthesias PSYCHIATRIC: No anxiety No depression PHYSICAL EXAMINATION: Vital signs reviewed, nursing noted reviewed. GENERAL: Well-appearing, obese and in no acute distress. HEAD: Atraumatic, normocephalic. EYES: Eyes appear normal, extraocular movements intact, sclera anicteric, conjunctiva are normal. ENT: nares patent, oropharynx clear without exudates. Moist mucous membranes. NECK: Normal range of motion, supple without lymphadenopathy LUNGS: Diminished to auscultation bilaterally with end expiratory wheezing. Breath sounds equal. Mild tachypnea without retractions HEART: Regular rate and rhythm without murmurs ABDOMEN: Soft, mild suprapubic tenderness, normoactive bowel sounds. No rebound, guarding, or rigidity. No masses appreciated. Back: No midline cervical, thoracic, or lumbar spinal tenderness, normal range of motion of the spine, no paraspinal muscle tenderness in the thoracic or lumbar region. No CVA tenderness bilaterally. EXTREMITIES: Nontender, good range of motion, 1+ pitting edema bilateral lower extremities and symmetric. NEUROLOGICAL: No focal neurological deficits. Moves all extremities spontaneously Motor and sensory grossly intact on exam. PSYCH: Normal mood, normal affect. SKIN: Warm, Dry, normal turgor, no rashes or lesions noted on exposed skin - Related Data Allergies/Adverse Reactions: ibuprofen [From Motrin] Allergy (Intermediate, Verified 06/13/19 17:38) RASH/UTICARTIA Past Medical History - General Information source: Patient, Relative - Social History Smoking Status: Former Smoker Chew tobacco use (# tins/day): No Frequency of alcohol use: None Drug Abuse: None Family History: COPD, Hypertension Patient has suicidal ideation: No Patient has homicidal ideation: No - Past Medical History Cardiac Medical History: Reports: Hx Congestive Heart Failure, Hx Coronary Artery Disease, Hx DVT, Hx Hypertension Denies: Hx Atrial Fibrillation, Hx Heart Attack, Hx Heart Murmur Pulmonary Medical History: Reports: Hx Asthma, Hx COPD, Hx Pneumonia Denies: Hx Bronchitis, Hx Respiratory Failure, Hx Sleep Apnea, Hx Tuberculosis Neurological Medical History: Denies: Hx Cerebrovascular Accident, Hx Seizures Endocrine Medical History: Reports: Hx Diabetes Mellitus Type 2. Denies: Hx Diabetes Mellitus Type 1, Hx Hyperthyroidism, Hx Hypothyroidism Renal/ Medical History: Reports: Hx Renal Insufficiency. Denies: Hx Peritoneal Dialysis GI Medical History: Reports: Hx Diverticulitis, Hx Gastroesophageal Reflux Disease. Denies: Hx Cirrhosis, Hx Crohn's Disease, Hx Hepatitis, Hx Hiatal Hernia, Hx Pancreatitis, Hx Ulcer - ?, Hx Ulcerative Colitis Musculoskeletal Medical History: Reports Hx Arthritis, Denies Hx Gout, Denies Hx Systemic Lupus Erythematosus Skin Medical History: Denies Hx Eczema, Denies Hx Psoriasis Psychiatric Medical History: Denies: Hx Depression Traumatic Medical History: Reports: Hx Fractures - several broken ribs Infectious Medical History: Denies: Hx Hepatitis Past Surgical History: Reports: Hx Appendectomy, Hx Cholecystectomy, Hx Herniorrhaphy, Hx Hysterectomy, Hx Orthopedic Surgery - rotator cuff. Denies: Hx Mastectomy, Hx Open Heart Surgery, Hx Pacemaker - Immunizations Immunizations up to date: Yes Hx Diphtheria, Pertussis, Tetanus Vaccination: No Hx Pneumococcal Vaccination: 08/30/14 Physical Exam - Vital signs Vitals: Temp Pulse Resp BP Pulse Ox 97.8 F 72 20 133/55 H 89 L 06/13/19 18:02 06/13/19 18:02 06/13/19 18:02 06/13/19 18:02 06/13/19 18:02 Course - Re-evaluation Re-evalutation: 06/13/19 20:49 Vitals reviewed. Nursing notes reviewed. Patient does have expiratory wheezing. Currently she is mildly tachypneic but is oxygenating at 97% on her home 3 L nasal cannula. Patient was given albuterol, DuoNeb, and Solu-Medrol for likely COPD exacerbation. Her chest x-ray shows no pneumothorax, pneumonia or pulmonary vascular congestion. 06/13/19 21:39 On reevaluation patient has not yet received any of her medications and clinically is unchanged. She is still oxygenating better than when she presented. This is likely because she is not up ambulating. Patients troponin is negative. The remainder of her blood work is unremarkable. She does have a heart score of 5 and will be admitted to the hospital for further cardiac and respiratory monitoring. Patient's care was discussed with Dr. Ruiz who has accepted admission. Chest X-Ray 06/13/19 18:25 IMPRESSION: NO ACUTE FINDINGS. Chest X-Ray 06/13/19 18:25 IMPRESSION: NO ACUTE FINDINGS. - Vital Signs Vital signs: Temp Pulse Resp BP Pulse Ox 97.8 F 72 26 H 133/85 H 94 06/13/19 18:02 06/13/19 18:02 06/13/19 20:01 06/13/19 20:01 06/13/19 20:01 - Laboratory Result Diagrams: 06/13/19 20:00 06/13/19 20:00 Laboratory results interpreted by me: 06/13/19 06/13/19 06/13/19 20:00 20:00 20:00 WBC 15.8 H RBC 3.64 L Hgb 11.0 L Hct 34.0 L RDW 14.7 H Absolute Neutrophils 12.0 H BUN 30 H Est GFR ( Amer) 55 L Est GFR (Non-Af Amer) 45 L Glucose 181 H Creatine Kinase 22 L NT-Pro-B Natriuret Pep 913 H Total Protein 5.8 L Albumin 3.2 L - EKG Interpretation by Me Additional EKG results interpreted by me: 06/13/19 20:48 Interpreted by myself 1757:Normal sinus rhythm, rate 69, left bundle branch block, no ectopy, no sig nificant change from 05/28/2019 Discharge - Discharge Clinical Impression: COPD exacerbation Chest pain Qualifiers: Chest pain type: unspecified Qualified Code(s): R07.9 - Chest pain, unspecified Condition: Stable Disposition: ADMITTED INPATIENT Admitting Provider: Sara (Hospitalist) Unit Admitted: Telemetry
[2019-06-13 21:04] LABS: ALANINE AMINOTRANSFERASE 18 U/L (9-52); ALBUMIN 3.2 g/dL (3.5-5.0); ALKALINE PHOSPHATASE 82 U/L (38-126); ANION GAP 9 (5-19); ASPARTATE AMINO TRANSFERASE 16 U/L (14-36); BILIRUBIN,DIRECT 0.2 mg/dL (0.0-0.4); BILIRUBIN,TOTAL 0.4 mg/dL (0.2-1.3); BLOOD UREA NITROGEN 30 mg/dL (7-20); CALCIUM 8.9 mg/dL (8.4-10.2); CARBON DIOXIDE 27 mmol/L (22-30); CHLORIDE 101 mmol/L (98-107); CREATINE KINASE 22 U/L (30-135); GLUCOSE 181 mg/dL (75-110); POTASSIUM 4.6 mmol/L (3.6-5.0); TOTAL PROTEIN 5.8 g/dL (6.3-8.2)
[2019-06-13 21:15] LABS: CREATINE KINASE MB 0.87 ng/mL (<4.55); NT PRO BNP 913 pg/mL (5-900)
[2019-06-13 21:16] LABS: TROPONIN I < 0.012 ng/mL
[2019-06-13] MEDS ORDERED: ASPIRIN 81 MG TABLET, CHEWABLE PO ONE (21:45)
[2019-06-13] MEDS ORDERED: ONDANSETRON HCL INJ/PF 4 MG/2 ML SDV IV PRN (22:38)
[2019-06-13] MEDS ORDERED: MAG HYDROX/AL HYDROX/SIMETH SUSP 30 ML UDCUP PO PRN (22:38)
[2019-06-13] MEDS ORDERED: MAGNESIUM HYDROXIDE SUSP 30 ML UDCUP PO PRN (22:38)
[2019-06-13] MEDS ORDERED: NITROGLYCERIN 0.4 MG/TAB 25 TAB/BOTTLE SL PRN (22:44)
[2019-06-13] MEDS ORDERED: INSULIN REG, HUMAN 100 UNIT/ML 3 ML VIAL (PYX) SUBCUT PRN (22:44)
[2019-06-13] MEDS ORDERED: DEXTROSE 50%-WATER 25 GM/50 ML DISP.SYRIN IV PRN ×2 (22:46)
[2019-06-13] MEDS ORDERED: DEXTROSE 40% GEL 15 GM TUBE PO PRN ×2 (22:46)
[2019-06-13] MEDS ORDERED: GLUCAGON,HUMAN RECOMB 1 MG INJ IM PRN (22:46)
--- NOTE | 2019-06-13 23:15 | EKG REPORT ---
SEVERITY:- ABNORMAL ECG - SINUS RHYTHM LEFT BUNDLE BRANCH BLOCK : Confirmed by: Francisca Marin 13-Jun-2019 23:14:29
[2019-06-13 23:33] LABS: FREE T4 (FREE THYROXINE) 1.22 ng/dL (0.78-2.19)
[2019-06-13 23:47] LABS: THYROID STIMULATING HORMONE 0.79 uIU/mL (0.47-4.68)
[2019-06-14] MEDS: MORPHINE SULFATE 10 MG/ML INJ IV PRN ×3 (00:11→22:00)
[2019-06-14] MEDS: LEVALBUTEROL HCL NEB 1.25 MG/3 ML AMPUL NEB SCH ×4 (00:35→23:38)
[2019-06-14] MEDS: IPRATROPIUM BROMIDE 0.02% NEB 0.5 MG/2.5 ML AMPUL NEB SCH ×4 (00:35→23:38)
[2019-06-14 02:02] LABS: APPEARANCE,URINE SLIGHTLY-CLOUDY; BILIRUBIN,URINE NEGATIVE (NEGATIVE); COLOR,URINE YELLOW; GLUCOSE, URINE 50 mg/dL (NEGATIVE); KETONES,URINE NEGATIVE (NEGATIVE); LEUKOCYTE ESTERASE,URINE NEGATIVE (NEGATIVE); NITRITE,URINE NEGATIVE (NEGATIVE); PROTEIN,URINE NEGATIVE (NEGATIVE); URINE SPECIFIC GRAVITY 1.017; UROBILINOGEN,URINE NEGATIVE mg/dL (<2.0)
[2019-06-14 02:40] LABS: HEMATOCRIT 33.4 % (36.0-47.0); HEMOGLOBIN 10.8 g/dL (12.0-15.5); MEAN CORPUSCULAR HEMOGLOBIN 30.1 pg (27.0-33.4); MEAN CORPUSCULAR HGB CONC 32.4 g/dL (32.0-36.0); MEAN CORPUSCULAR VOLUME 93 fl (80-97); PLATELET COUNT 172 10^3/uL (150-450); RED BLOOD COUNT 3.59 10^6/uL (3.72-5.28); RED CELL DISTRIBUTION WIDTH 14.8 % (11.5-14.0); WHITE BLOOD COUNT 15.1 10^3/uL (4.0-10.5)
[2019-06-14 02:56] LABS: ANION GAP 9 (5-19); BLOOD UREA NITROGEN 33 mg/dL (7-20); CALCIUM 8.8 mg/dL (8.4-10.2); CARBON DIOXIDE 28 mmol/L (22-30); CHLORIDE 102 mmol/L (98-107); CREATINE KINASE 22 U/L (30-135); GLUCOSE 263 mg/dL (75-110); POTASSIUM 5.1 mmol/L (3.6-5.0); TRIGLYCERIDES 125 mg/dL (<150)
[2019-06-14 03:07] LABS: DIRECT LDL 125 mg/dL (<100)
[2019-06-14 03:09] LABS: CREATINE KINASE MB 1.25 ng/mL (<4.55); NT PRO BNP 873 pg/mL (5-900)
[2019-06-14 03:17] LABS: TROPONIN I < 0.012 ng/mL
--- NOTE | 2019-06-14 03:28 | PDOC H&P ---
History of Present Illness Admission Date/PCP: 06/13/19 21:52 STEVE SCANLON Patient complains of: Dyspnea History of Present Illness: GAVI PEDRO is a 73 year old female who presents the emergency room with acute dyspnea. She admits developing acute shortness of breath in the mid afternoon today that has not improved. She used her usual nebulizer treatments and continuing using her home oxygen at 3 L/min per nasal cannula without significant improvement. She admits the associated symptoms of mild air hunger and wheezing. Her acute dyspnea was also associated with the acute onset of chest pain which she describes as a severe heaviness in the center of the chest without radiation, that lasted about 1 hour. 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 Her dyspnea has persisted since onset and resulted in her coming to the emergency room. She admits prior similar episodes on numerous occasions related to her COPD. She has not identified any aggravating or ameliorating factors for her acute dyspnea. In the emergency room she was found to have hypoxia with her O2 sat being 89% on 3 L/min of O2 via nasal cannula. Her initial cardiac enzymes and EKG were negative for acute myocardial ischemia or injury. Patient remains significantly dyspneic and was noted to have wheezing and poor air movement on exam thus resulting in her admission to the hospital for further evaluation and treatment. Past Medical History Cardiac Medical History: Reports: Congestive Heart Failure, Coronary Artery Disease, DVT, Hypertension Denies: Atrial Fibrillation, Myocardial Infarction, Heart Murmur Pulmonary Medical History: Reports: Asthma, Chronic Obstructive Pulmonary Disease (COPD), Pneumonia Denies: Bronchitis, Respiratory Failure, Sleep Apnea, Tuberculosis EENT Medical History: Denies: Cataracts, Ears - Hearing aids Neurological Medical History: Denies: Hemorrhagic CVA, Ischemic CVA, Multiple Sclerosis, Seizures Endocrine Medical History: Reports: Diabetes Mellitus Type 2 Denies: Diabetes Mellitus Type 1, Hyperthyroidism, Hypothyroidism Renal/ Medical History: Denies: Chronic Kidney Disease, Nephrolithiasis Malignancy Medical History: Reports: None GI Medical History: Reports: Diverticulitis, Gastroesophageal Reflux Disease Denies: Cirrhosis, Crohn's Disease, Hepatitis, Hiatal Hernia, Ulcerative Coli tis Musculoskeltal Medical History: Reports: Arthritis Denies: Gout Skin Medical History: Denies: Eczema, Psoriasis Psychiatric Medical History: Reports: Tobacco Dependency Denies: Alcohol Dependency, Depression, Substance Abuse Traumatic Medical History: Reports: None Hematology: Reports: Anemia Denies: Bleeding Tendencies Infectious Medical History: Reports: None Past Surgical History Past Surgical History: Reports: Appendectomy, Cholecystectomy, Herniorrhaphy, Hysterectomy, Orthopedic Surgery - rotator cuff Social History Information Source: Patient Lives with: Family Smoking Status: Former Smoker Frequency of Alcohol Use: None Hx Recreational Drug Use: No Drugs: None Hx Prescription Drug Abuse: No - Advance Directive Resuscitation Status: Full Code Surrogate healthcare decision maker:: David Pedro Family History Family History: CAD, COPD, DM, Hypertension, Malignancy Parental Family History Reviewed: Yes Children Family History Reviewed: No Sibling(s) Family History Reviewed.: Yes Medication/Allergy Home Medications: Albuterol Sulfate [Proair HFA Inhalation Aerosol 8.5 gm MDI] 2 puff IH Q4HP PRN 05/08/19 Aspirin [Adult Low Dose Aspirin EC] 81 mg PO DAILY 05/08/19 Atorvastatin Calcium [Lipitor 10 mg Tablet] 10 mg PO QHS 05/08/19 Gabapentin [Neurontin 400 mg Capsule] 400 mg PO Q12 05/08/19 Hydrocodone/Acetaminophen [[place] 5-325 mg Tablet] 1 tab PO Q12HP PRN 05/08/19 Lisinopril [Zestril] 5 mg PO DAILY 05/08/19 Metformin HCl [Glucophage 500 mg Tablet] 500 mg PO BID 05/08/19 Fluticasone/Umeclidin/Vilanter [Trelegy 100-62.5-25 Mcg Ellipta 14 Dose/Dpi] 1 puff IH DAILY #1 inhaler 05/11/19 Dexlansoprazole [Dexilant 60 mg Capsule] 60 mg PO DAILY 05/27/19 Fluticasone Propionate [Flonase Nasal [place] 50 Mcg/[place] 16 gm] 1 spray NASL DAILYP PRN 05/28/19 Carvedilol [Coreg 6.25 mg Tablet] 6.25 mg PO Q12 #60 tablet 06/05/19 Prednisone [Deltasone 20 mg Tablet] 40 mg PO DAILY 5 Days #10 tablet 06/05/19 Allergies/Adverse Reactions: ibuprofen [From Motrin] Allergy (Intermediate, Verified 06/13/19 17:38) RASH/UTICARTIA Review of Systems Constitutional: ABSENT: chills, fever(s) Eyes: ABSENT: visual disturbances, other - Eye pain Ears: ABSENT: hearing changes, other - Ear pain Nose, Mouth, and Throat: ABSENT: mouth pain, sore throat Cardiovascular: PRESENT: as per HPI, chest pain, edema - Bilateral feet. ABSENT: orthropnea, palpitations Respiratory: PRESENT: as per HPI, dyspnea, other - Wheezing and air hunger. ABSENT: cough Gastrointestinal: PRESENT: as per HPI, abdominal pain - Idiopathic suprapubic pain. ABSENT: constipation, diarrhea, nausea, vomiting Genitourinary: ABSENT: dysuria, hematuria Musculoskeletal: PRESENT: back pain - Low back pain radiating from suprapubic region. ABSENT: joint swelling, muscle weakness Integumentary: ABSENT: pruritus, rash Neurological: ABSENT: confusion, convulsions, focal weakness, memory loss, syncope Psychiatric: ABSENT: anxiety, depression Endocrine: ABSENT: cold intolerance, heat intolerance Hematologic/Lymphatic: ABSENT: easy bleeding, easy bruising Physical Exam Vital Signs: Temp Pulse Resp BP Pulse Ox 97.8 F 72 26 H 133/85 H 94 06/13/19 18:02 06/13/19 18:02 06/13/19 20:01 06/13/19 20:01 06/13/19 20:01 Intake & Output 06/11/19 06/12/19 06/13/19 23:59 23:59 23:59 Weight 79.379 kg General appearance: PRESENT: no acute distress, cooperative Head exam: PRESENT: atraumatic, normocephalic Eye exam: PRESENT: conjunctiva pink. ABSENT: conjunctival injection, scleral icterus Ear exam: PRESENT: normal external ear exam. ABSENT: bleeding, drainage Mouth exam: PRESENT: dry mucosa, neck supple Neck exam: ABSENT: thyromegaly, tracheal deviation Respiratory exam: PRESENT: decreased breath sounds - Moderately decreased breath sounds throughout all [place] consistent with moderate to severe COPD, prolonged expiratory phas - Moderately prolonged expiratory phase, symmetrical, wheezes - Expiratory wheezes present in all [place] Cardiovascular exam: PRESENT: RRR. ABSENT: clicks, gallop, rubs Pulses: PRESENT: normal radial pulses, normal dorsalis pedis pul Vascular exam: PRESENT: normal capillary refill. ABSENT: pallor GI/Abdominal exam: PRESENT: normal bowel sounds, soft Rectal exam: PRESENT: deferred Extremities exam: PRESENT: pedal edema - Mild bipedal edema. ABSENT: joint swelling Musculoskeletal exam: ABSENT: deformity, dislocation Neurological exam: PRESENT: alert, oriented to person, oriented to place, o riented to time, oriented to situation, CN II-XII grossly intact. ABSENT: motor sensory deficit Psychiatric exam: PRESENT: appropriate affect, normal mood Skin exam: PRESENT: dry, intact, warm. ABSENT: jaundice, rash, urticaria Results Laboratory Results: 06/13/19 20:00 06/13/19 20:00 06/13/19 06/13/19 20:00 20:00 WBC 15.8 H RBC 3.64 L Hgb 11.0 L Hct 34.0 L MCV 93 MCH 30.1 MCHC 32.2 RDW 14.7 H Plt Count 201 Seg Neutrophils % 76.1 Lymphocytes % 14.7 Monocytes % 7.4 Eosinophils % 0.5 Basophils % 1.3 Absolute Neutrophils 12.0 H Absolute Lymphocytes 2.3 Absolute Monocytes 1.2 Absolute Eosinophils 0.1 Absolute Basophils 0.2 Sodium 137.4 Potassium 4.6 Chloride 101 Carbon Dioxide 27 Anion Gap 9 BUN 30 H Creatinine 1.17 Est GFR ( Amer) 55 L Est GFR (Non-Af Amer) 45 L Glucose 181 H Calcium 8.9 Total Bilirubin 0.4 AST 16 ALT 18 Alkaline Phosphatase 82 Total Protein 5.8 L Albumin 3.2 L Lipase 121.2 06/13/19 06/13/19 20:00 20:00 Creatine Kinase 22 L CK-MB (CK-2) 0.87 Troponin I < 0.012 NT-Pro-B Natriuret Pep 913 H Impressions: Chest X-Ray 06/13/19 18:25 IMPRESSION: NO ACUTE FINDINGS. Assessment and Plan - Diagnosis (1) Acute exacerbation of chronic obstructive pulmonary disease (COPD) Is this a current diagnosis for this admission?: Yes Plan: Patient treated with an aggressive pulmonary toilet utilizing Xopenex, Atrovent and Pulmicort. She will also receive IV Solu-Medrol and supplemental oxygen as required. She will be monitored closely with oxygen saturations. (2) Acute and chronic respiratory failure with hypoxia Is this a current diagnosis for this admission?: Yes Plan: Patient received supplemental oxygen via nasal cannula as needed with the use of noninvasive airway pressure support devices as required to maintain adequate oxygenation. (3) CAD (coronary artery disease) Qualifiers: Coronary Disease-Associated Artery/Lesion type: [place] artery [place] vs. transplanted heart: [place] heart Associated angina: with unspecified angina Qualified Code(s): I25.119 - Atherosclerotic heart disease of [place] coronary artery with unspecified angina pectoris Is this a current diagnosis for this admission?: Yes Plan: Serial cardiac enzymes will be obtained to evaluate the patient's chest pain in light of her coronary artery disease. Patient will be continued on her usual coronary artery disease medications and she will be monitored by telemetry throughout her hospital course. (4) Chest pain Qualifiers: Chest pain type: unspecified Qualified Code(s): R07.9 - Chest pain, unspecified Is this a current diagnosis for this admission?: Yes Plan: Serial cardiac enzymes will be obtained to evaluate the patient's chest pain. She will be monitored with telemetry throughout her hospital course. (5) Chronic diastolic CHF (congestive heart failure) Is this a current diagnosis for this admission?: Yes Plan: Patient will be continued on her current CHF regimen. A thyroid profile and li pid profile as well as a BNP will be obtained. Daily monitoring the patient's CBC, metabolic profile and magnesium levels will also be part of her overall evaluation. (6) HTN (hypertension) Qualifiers: Hypertension type: essential hypertension Qualified Code(s): I10 - Essential (primary) hypertension Is this a current diagnosis for this admission?: Yes (7) Diabetes mellitus type 2 in obese Is this a current diagnosis for this admission?: Yes Plan: Patient will be continued on her usual diabetic regiment and diet. A hemoglobin A1c will be obtained to assess her current therapy. Before meals and at bedtime Accu-Cheks will be obtained with sliding scale insulin to treat hyperglycemia. Hypoglycemic regiment will be in place. - Time Time Spent with patient: 25-34 minutes Anticipated discharge: Home - Inpatient Certification Based on my medical assessment, after consideration of the patient's comorbidities, presenting symptoms, or acuity I expect that the services needed warrant INPATIENT care.: Yes I certify that my determination is in accordance with my understanding of Medicare's requirements for reasonable and necessary INPATIENT services [42 CFR 412.3e].: Yes Medical Necessity: Significant Comorbidiites Make Outpatient Treatment Too Risky, Need Close Monitoring Due to Risk of Patient Decompensation, Need For Continuous Telemetry Monitoring, Need for Nebulizer Therapy and Monitoring of Response, Risk of Complication if Not Cared For in Hospital
[2019-06-14] MEDS: PANTOPRAZOLE SODIUM 40 MG TABLET.DR PO SCH (06:35)
[2019-06-14] MEDS: HEPARIN SOD (PORCINE) 5,000 UNIT/ML 1 ML VIAL SUBCUT SCH ×3 (06:36→22:03)
[2019-06-14] MEDS: BUDESONIDE NEB 0.5 MG/2 ML AMPUL NEB SCH ×2 (08:20→20:28)
[2019-06-14] MEDS: DOCUSATE SODIUM 100 MG CAPSULE PO SCH ×2 (09:28→17:12)
[2019-06-14] MEDS: METHYLPREDNISOLONE INJ 40 MG/1 ML SDV IV SCH ×2 (09:28→22:00)
[2019-06-14 10:57] LABS: CREATINE KINASE MB 1.32 ng/mL (<4.55)
[2019-06-14 11:05] LABS: TROPONIN I < 0.012 ng/mL
[2019-06-14] MEDS ORDERED: GLUCAGON,HUMAN RECOMB 1 MG INJ IM PRN (13:53)
[2019-06-14] MEDS ORDERED: DEXTROSE 40% GEL 15 GM TUBE PO PRN ×2 (13:53)
[2019-06-14] MEDS ORDERED: DEXTROSE 50%-WATER 25 GM/50 ML DISP.SYRIN IV PRN ×2 (13:53)
--- NOTE | 2019-06-14 15:05 | PDOC PROGRESS REPORT ---
Subjective Progress Note for:: 06/14/19 Subjective:: GAVI PEDRO is a 73 year old female who presents the emergency room with acute dyspnea. She admits developing acute shortness of breath in the mid afternoon today that has not improved. She used her usual nebulizer treatments and continuing using her home oxygen at 3 L/min per nasal cannula without significant improvement. She admits the associated symptoms of mild air hunger and wheezing. Her acute dyspnea was also associated with the acute onset of chest pain which she describes as a severe heaviness in the center of the chest without radiation, that lasted about 1 hour. 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 Her dyspnea has persisted since onset and resulted in her coming to the emergency room. She admits prior similar episodes on numerous occasions related to her COPD. She has not identified any aggravating or ameliorating factors for her acute dyspnea. In the emergency room she was found to have hypoxia with her O2 sat being 89% on 3 L/min of O2 via nasal cannula. Her initial cardiac enzymes and EKG were negative for acute myocardial ischemia or injury. Patient remains significantly dyspneic and was noted to have wheezing and poor air movement on exam thus resulting in her admission to the hospital for further evaluation and treatment. 06/14/2019. Patient on BiPAP. Reporting mild improvement of her symptoms, in no apparent distress, denies any fever, chills, chest pain, nausea, vomiting, diarrhea, constipation or any urinary symptoms. Reason For Visit: ACUTE EXACERBATION OF COPD,CHEST PAIN Physical Exam Vital Signs: Temp Pulse Resp BP Pulse Ox 98.3 F 63 20 171/68 H 93 06/14/19 11:52 06/14/19 14:00 06/14/19 11:52 06/14/19 11:52 06/14/19 11:52 Intake & Output 06/13/19 06/14/19 06/15/19 06:59 06:59 06:59 Intake Total 360 Balance 360 Weight 79.379 kg General appearance: PRESENT: obese Head exam: PRESENT: atraumatic, normocephalic Respiratory exam: PRESENT: decreased breath sounds. ABSENT: rales, rhonchi, wheezes GI/Abdominal exam: PRESENT: normal bowel sounds, soft. ABSENT: distended, guarding, mass, organolmegaly, rebound, tenderness Extremities exam: PRESENT: full ROM. ABSENT: calf tenderness, clubbing, pedal edema Neurological exam: PRESENT: alert, awake, oriented to person, oriented to place, oriented to time, CN II-XII grossly intact. ABSENT: motor sensory deficit Results Laboratory Results: 06/14/19 02:30 06/14/19 02:30 06/13/19 06/13/19 06/13/19 20:00 20:00 20:00 WBC 15.8 H RBC 3.64 L Hgb 11.0 L Hct 34.0 L MCV 93 MCH 30.1 MCHC 32.2 RDW 14.7 H Plt Count 201 Seg Neutrophils % 76.1 Lymphocytes % 14.7 Monocytes % 7.4 Eosinophils % 0.5 Basophils % 1.3 Absolute Neutrophils 12.0 H Absolute Lymphocytes 2.3 Absolute Monocytes 1.2 Absolute Eosinophils 0.1 Absolute Basophils 0.2 Sodium 137.4 Potassium 4.6 Chloride 101 Carbon Dioxide 27 Anion Gap 9 BUN 30 H Creatinine 1.17 Est GFR ( Amer) 55 L Est GFR (Non-Af Amer) 45 L Glucose 181 H Calcium 8.9 Magnesium Total Bilirubin 0.4 AST 16 ALT 18 Alkaline Phosphatase 82 Total Protein 5.8 L Albumin 3.2 L Triglycerides Cholesterol LDL Cholesterol Direct VLDL Cholesterol HDL Cholesterol Lipase 121.2 TSH 0.79 Free T4 1.22 Free T3 pg/mL 3.00 Urine Color Urine Appearance Urine pH Ur Specific [place] Urine Protein Urine Glucose (UA) Urine Ketones Urine Blood Urine Nitrite Ur Leukocyte Esterase Urine WBC (Auto) 06/14/19 06/14/19 06/14/19 01:30 02:30 02:30 WBC 15.1 H RBC 3.59 L Hgb 10.8 L Hct 33.4 L MCV 93 MCH 30.1 MCHC 32.4 RDW 14.8 H Plt Count 172 Seg Neutrophils % Lymphocytes % Monocytes % Eosinophils % Basophils % Absolute Neutrophils Absolute Lymphocytes Absolute Monocytes Absolute Eosinophils Absolute Basophils Sodium 138.6 Potassium 5.1 H Chloride 102 Carbon Dioxide 28 Anion Gap 9 BUN 33 H Creatinine 1.17 Est GFR ( Amer) 55 L Est GFR (Non-Af Amer) 45 L Glucose 263 H Calcium 8.8 Magnesium 1.5 L Total Bilirubin AST ALT Alkaline Phosphatase Total Protein Albumin Triglycerides 125 Cholesterol 215.20 H LDL Cholesterol Direct 125 H VLDL Cholesterol 25.0 HDL Cholesterol 68 Lipase TSH Free T4 Free T3 pg/mL Urine Color YELLOW Urine Appearance SLIGHTLY-CLOUDY Urine pH 5.0 Ur Specific [place] 1.017 Urine Protein NEGATIVE Urine Glucose (UA) 50 H Urine Ketones NEGATIVE Urine Blood NEGATIVE Urine Nitrite NEGATIVE Ur Leukocyte Esterase NEGATIVE Urine WBC (Auto) 0 06/13/19 06/13/19 06/14/19 20:00 20:00 02:30 Creatine Kinase 22 L CK-MB (CK-2) 0.87 1.25 Troponin I < 0.012 < 0.012 NT-Pro-B Natriuret Pep 913 H 873 06/14/19 06/14/19 06/14/19 02:30 09:40 09:40 Creatine Kinase 22 L 20 L CK-MB (CK-2) 1.32 Troponin I < 0.012 NT-Pro-B Natriuret Pep Impressions: Chest X-Ray 06/13/19 18:25 IMPRESSION: NO ACUTE FINDINGS. Assessment and Plan - Diagnosis (1) Acute and chronic respiratory failure with hypoxia Is this a current diagnosis for this admission?: Yes Plan: Likely due to acute on chronic COPD/CHF exacerbation. Presented with FiO2 of 88% on room air. DuoNeb's, IV steroids, flutter valve, incentive spirometry, PRN BiPAP. LABA's/LAMA's (2) Acute exacerbation of chronic obstructive pulmonary disease (COPD) Is this a current diagnosis for this admission?: Yes Plan: Per #1. (3) CAD (coronary artery disease) Qualifiers: Coronary Disease-Associated Artery/Lesion type: [place] artery [place] vs. transplanted heart: [place] heart Associated angina: with unspecified angina Qualified Code(s): I25.119 - Atherosclerotic heart disease of [place] coronary [place] with unspecified angina pectoris Is this a current diagnosis for this admission?: Yes Plan: Cardiac enzyme WNL. Continue antiplatelets, statins, beta-blockers, DAYSI. Outpatient PCP follow-up (4) Chest pain Qualifiers: Chest pain type: unspecified Qualified Code(s): R07.9 - Chest pain, unspecified Is this a current diagnosis for this admission?: Yes Plan: Unlikely cardiac. Cardiac enzymes WNL. Admit to telemetry, continue CAD meds. (5) Chronic diastolic CHF (congestive heart failure) Is this a current diagnosis for this admission?: Yes Plan: Compensated. 06/04/2019. 2D echo showed fraction 55%. BNP 873. Cardiac diet, volume restriction, daily weights, diuretics, DAYSI, beta-blockers. Outpatient PCP follow-up. (6) Diabetes mellitus type 2 in obese Is this a current diagnosis for this admission?: Yes Plan: Controlled. A1c 6.0 Continue diabetic diet, sliding scale, pre-meal insulin, long-acting insulin, Accu-Chek, hypoglycemia protocol. Adjust dosage as needed. Restart home meds on discharge. (7) HTN (hypertension) Qualifiers: Hypertension type: essential hypertension Qualified Code(s): I10 - Essential (primary) hypertension Is this a current diagnosis for this admission?: Yes Plan: Restart home meds. Adjust meds as needed. (8) Obesity (BMI 30.0-34.9) Is this a current diagnosis for this admission?: Yes Plan: Diet and lifestyle modification recommended. (9) Hyperkalemia Is this a current diagnosis for this admission?: Yes Plan: No EKG changes. Admit to telemetry. Hyperkalemia protocol. Potassium level tomorrow. (10) Hyperlipidemia Is this a current diagnosis for this admission?: Yes Plan: Continue statins. Diet and lifestyle modification recommended.
[2019-06-14 15:45] LABS: CREATINE KINASE MB 1.49 ng/mL (<4.55)
[2019-06-14 15:52] LABS: TROPONIN I < 0.012 ng/mL
[2019-06-14] MEDS: INSULIN LISPRO 100 UNIT/ML 3 ML VIAL SUBCUT SCH ×2 (16:23→22:10)
[2019-06-14] MEDS: ACETAMINOPHEN 325 MG TABLET PO PRN (17:12)
[2019-06-14] MEDS: HYDRALAZINE HCL INJ/PF 20 MG/1 ML SDV IV PRN (20:52)
[2019-06-14] MEDS: ATORVASTATIN CALCIUM 10 MG TABLET PO SCH (22:01)
[2019-06-14] MEDS: CARVEDILOL 6.25 MG TABLET PO SCH (22:01)
[2019-06-14] MEDS: GABAPENTIN 400 MG CAPSULE PO SCH (22:01)
--- NOTE | 2019-06-14 23:46 | EKG REPORT ---
SEVERITY:- ABNORMAL ECG - SINUS RHYTHM LEFT BUNDLE BRANCH BLOCK : Confirmed by: Francisca Marin 14-Jun-2019 23:46:04
[2019-06-15] MEDS: HEPARIN SOD (PORCINE) 5,000 UNIT/ML 1 ML VIAL SUBCUT SCH ×3 (05:17→21:17)
[2019-06-15 05:42] LABS: HEMATOCRIT 30.7 % (36.0-47.0); HEMOGLOBIN 10.4 g/dL (12.0-15.5); MEAN CORPUSCULAR HGB CONC 33.8 g/dL (32.0-36.0); MEAN CORPUSCULAR VOLUME 92 fl (80-97); PLATELET COUNT 158 10^3/uL (150-450); RED BLOOD COUNT 3.34 10^6/uL (3.72-5.28); RED CELL DISTRIBUTION WIDTH 14.5 % (11.5-14.0); WHITE BLOOD COUNT 13.5 10^3/uL (4.0-10.5)
[2019-06-15 06:16] LABS: ALANINE AMINOTRANSFERASE 12 U/L (9-52); ALBUMIN 3.3 g/dL (3.5-5.0); ALKALINE PHOSPHATASE 93 U/L (38-126); ANION GAP 8 (5-19); ASPARTATE AMINO TRANSFERASE 16 U/L (14-36); BILIRUBIN,DIRECT 0.2 mg/dL (0.0-0.4); BILIRUBIN,TOTAL 0.2 mg/dL (0.2-1.3); BLOOD UREA NITROGEN 31 mg/dL (7-20); CALCIUM 8.9 mg/dL (8.4-10.2); CARBON DIOXIDE 27 mmol/L (22-30); CHLORIDE 101 mmol/L (98-107); GLUCOSE 212 mg/dL (75-110); POTASSIUM 5.3 mmol/L (3.6-5.0); TOTAL PROTEIN 5.9 g/dL (6.3-8.2)
[2019-06-15] MEDS: PANTOPRAZOLE SODIUM 40 MG TABLET.DR PO SCH (06:23)
[2019-06-15] MEDS: MORPHINE SULFATE 10 MG/ML INJ IV PRN ×2 (06:32→19:01)
[2019-06-15] MEDS: IPRATROPIUM BROMIDE 0.02% NEB 0.5 MG/2.5 ML AMPUL NEB SCH ×2 (07:56→16:04)
[2019-06-15] MEDS: BUDESONIDE NEB 0.5 MG/2 ML AMPUL NEB SCH ×2 (07:56→20:30)
[2019-06-15] MEDS: LEVALBUTEROL HCL NEB 1.25 MG/3 ML AMPUL NEB SCH ×2 (07:56→16:04)
[2019-06-15] MEDS: INSULIN LISPRO 100 UNIT/ML 3 ML VIAL SUBCUT SCH ×4 (08:22→21:48)
[2019-06-15] MEDS ORDERED: SODIUM POLYSTYRENE SULFONATE 15 GM/60 ML PO ONE (09:00)
[2019-06-15] MEDS: METHYLPREDNISOLONE INJ 40 MG/1 ML SDV IV SCH ×2 (09:42→21:15)
[2019-06-15] MEDS: GABAPENTIN 400 MG CAPSULE PO SCH ×2 (09:42→21:15)
[2019-06-15] MEDS: DOCUSATE SODIUM 100 MG CAPSULE PO SCH ×2 (09:43→18:10)
[2019-06-15] MEDS: ASPIRIN 81 MG TABLET, ENT COATED PO SCH (09:43)
[2019-06-15] MEDS: CARVEDILOL 6.25 MG TABLET PO SCH ×3 (09:43→21:16)
[2019-06-15] MEDS ORDERED: LISINOPRIL 5 MG TABLET PO SCH (10:00)
[2019-06-15] MEDS ORDERED: MORPHINE SULFATE 10 MG/ML INJ IV PRN ×2 (10:44→10:45)
[2019-06-15] MEDS: ONDANSETRON HCL INJ/PF 4 MG/2 ML SDV IV PRN (11:59)
[2019-06-15] MEDS ORDERED: HYDRALAZINE HCL 50 MG TABLET PO ONE (17:00)
[2019-06-15] MEDS ORDERED: FUROSEMIDE 20 MG TABLET PO ONE (17:00)
[2019-06-15] MEDS ORDERED: LISINOPRIL 5 MG TABLET PO ONE (18:45)
--- NOTE | 2019-06-15 18:51 | PDOC PROGRESS REPORT ---
Subjective Progress Note for:: 06/15/19 Subjective:: GAVI PEDRO is a 73 year old female who presents the emergency room with acute dyspnea. She admits developing acute shortness of breath in the mid afternoon today that has not improved. She used her usual nebulizer treatments and continuing using her home oxygen at 3 L/min per nasal cannula without significant improvement. She admits the associated symptoms of mild air hunger and wheezing. Her acute dyspnea was also associated with the acute onset of chest pain which she describes as a severe heaviness in the center of the chest without radiation, that lasted about 1 hour. 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 Her dyspnea has persisted since onset and resulted in her coming to the emergency room. She admits prior similar episodes on numerous occasions related to her COPD. She has not identified any aggravating or ameliorating factors for her acute dyspnea. In the emergency room she was found to have hypoxia with her O2 sat being 89% on 3 L/min of O2 via nasal cannula. Her initial cardiac enzymes and EKG were negative for acute myocardial ischemia or injury. Patient remains significantly dyspneic and was noted to have wheezing and poor air movement on exam thus resulting in her admission to the hospital for further evaluation and treatment. 06/14/2019. Patient on BiPAP. Reporting mild improvement of her symptoms, in no apparent distress, denies any fever, chills, chest pain, nausea, vomiting, diarrhea, constipation or any urinary symptoms. Reason For Visit: ACUTE EXACERBATION OF COPD,CHEST PAIN Physical Exam Vital Signs: Temp Pulse Resp BP Pulse Ox 98.1 F 76 18 181/61 H 95 06/15/19 16:27 06/15/19 18:15 06/15/19 16:27 06/15/19 18:15 06/15/19 16:27 Intake & Output 06/14/19 06/15/19 06/16/19 06:59 06:59 06:59 Intake Total 1480 720 Balance 1480 720 Weight 79.379 kg 79.3 kg Results Laboratory Results: 06/15/19 04:44 06/15/19 14:39 06/15/19 06/15/19 06/15/19 04:44 04:44 04:44 WBC 13.5 H RBC 3.34 L Hgb 10.4 L Hct 30.7 L MCV 92 MCH 31.0 MCHC 33.8 RDW 14.5 H Plt Count 158 Sodium 136.2 L Potassium 5.3 H Chloride 101 Carbon Dioxide 27 Anion Gap 8 BUN 31 H Creatinine 1.12 Est GFR ( Amer) 58 L Est GFR (Non-Af Amer) 48 L Glucose 212 H Calcium 8.9 Magnesium 1.8 Total Bilirubin 0.2 AST 16 ALT 12 Alkaline Phosphatase 93 Total Protein 5.9 L Albumin 3.3 L 06/15/19 14:39 WBC RBC Hgb Hct MCV MCH MCHC RDW Plt Count Sodium Potassium 5.0 Chloride Carbon Dioxide Anion Gap BUN Creatinine Est GFR ( Amer) Est GFR (Non-Af Amer) Glucose Calcium Magnesium Total Bilirubin AST ALT Alkaline Phosphatase Total Protein Albumin 06/13/19 06/13/19 06/14/19 20:00 20:00 02:30 Creatine Kinase 22 L CK-MB (CK-2) 0.87 1.25 Troponin I < 0.012 < 0.012 NT-Pro-B Natriuret Pep 913 H 873 06/14/19 06/14/19 06/14/19 02:30 09:40 09:40 Creatine Kinase 22 L 20 L CK-MB (CK-2) 1.32 Troponin I < 0.012 NT-Pro-B Natriuret Pep 06/14/19 06/14/19 14:35 14:35 Creatine Kinase < 20 L CK-MB (CK-2) 1.49 Troponin I < 0.012 NT-Pro-B Natriuret Pep Impressions: Chest X-Ray 06/13/19 18:25 IMPRESSION: NO ACUTE FINDINGS. Assessment and Plan - Diagnosis (1) Acute and chronic respiratory failure with hypoxia Is this a current diagnosis for this admission?: Yes (2) Acute exacerbation of chronic obstructive pulmonary disease (COPD) Is this a current diagnosis for this admission?: Yes (3) CAD (coronary artery disease) Qualifiers: Coronary Disease-Associated Artery/Lesion type: [place] artery [place] vs. transplanted heart: [place] heart Associated angina: with unspecified angina Qualified Code(s): I25.119 - Atherosclerotic heart disease of [place] coronary artery with unspecified angina pectoris Is this a current diagnosis for this admission?: Yes (4) Chest pain Qualifiers: Chest pain type: unspecified Qualified Code(s): R07.9 - Chest pain, unspecified Is this a current diagnosis for this admission?: Yes (5) Chronic diastolic CHF (congestive heart failure) Is this a current diagnosis for this admission?: Yes (6) Diabetes mellitus type 2 in obese Is this a current diagnosis for this admission?: Yes (7) HTN (hypertension) Qualifiers: Hypertension type: essential hypertension Qualified Code(s): I10 - Essential (primary) hypertension Is this a current diagnosis for this admission?: Yes (8) Obesity (BMI 30.0-34.9) Is this a current diagnosis for this admission?: Yes (9) Hyperkalemia Is this a current diagnosis for this admission?: Yes (10) Hyperlipidemia Is this a current diagnosis for this admission?: Yes
[2019-06-15] MEDS: HYDRALAZINE HCL INJ/PF 20 MG/1 ML SDV IV PRN (19:01)
[2019-06-15] MEDS: ATORVASTATIN CALCIUM 10 MG TABLET PO SCH (21:16)
[2019-06-16] MEDS: LEVALBUTEROL HCL NEB 1.25 MG/3 ML AMPUL NEB SCH ×4 (00:18→23:54)
[2019-06-16] MEDS: IPRATROPIUM BROMIDE 0.02% NEB 0.5 MG/2.5 ML AMPUL NEB SCH ×4 (00:18→23:54)
[2019-06-16] MEDS: MORPHINE SULFATE 10 MG/ML INJ IV PRN (00:19)
[2019-06-16] MEDS: PANTOPRAZOLE SODIUM 40 MG TABLET.DR PO SCH (05:14)
[2019-06-16] MEDS: HEPARIN SOD (PORCINE) 5,000 UNIT/ML 1 ML VIAL SUBCUT SCH ×3 (05:14→21:56)
[2019-06-16 05:59] LABS: HEMATOCRIT 29.2 % (36.0-47.0); HEMOGLOBIN 9.6 g/dL (12.0-15.5); MEAN CORPUSCULAR HEMOGLOBIN 30.6 pg (27.0-33.4); MEAN CORPUSCULAR VOLUME 93 fl (80-97); PLATELET COUNT 156 10^3/uL (150-450); RED BLOOD COUNT 3.15 10^6/uL (3.72-5.28); RED CELL DISTRIBUTION WIDTH 14.9 % (11.5-14.0)
[2019-06-16 06:20] LABS: ANION GAP 5 (5-19); BLOOD UREA NITROGEN 41 mg/dL (7-20); CALCIUM 8.8 mg/dL (8.4-10.2); CARBON DIOXIDE 31 mmol/L (22-30); CHLORIDE 101 mmol/L (98-107); GLUCOSE 195 mg/dL (75-110); POTASSIUM 5.4 mmol/L (3.6-5.0)
[2019-06-16] MEDS: BUDESONIDE NEB 0.5 MG/2 ML AMPUL NEB SCH ×2 (07:17→20:35)
[2019-06-16] MEDS: ACETAMINOPHEN 325 MG TABLET PO PRN ×2 (07:30→14:35)
[2019-06-16] MEDS: INSULIN LISPRO 100 UNIT/ML 3 ML VIAL SUBCUT SCH ×4 (07:31→21:56)
[2019-06-16] MEDS: HYDRALAZINE HCL INJ/PF 20 MG/1 ML SDV IV PRN ×2 (08:24→16:56)
[2019-06-16] MEDS ORDERED: SODIUM POLYSTYRENE SULFONATE 15 GM/60 ML PO ONE ×3 (09:12→13:00)
[2019-06-16] MEDS ORDERED: CARVEDILOL 6.25 MG TABLET PO SCH (10:00)
[2019-06-16] MEDS: LISINOPRIL 5 MG TABLET PO SCH (10:11)
[2019-06-16] MEDS: DOCUSATE SODIUM 100 MG CAPSULE PO SCH ×2 (10:11→17:00)
[2019-06-16] MEDS: CARVEDILOL 3.125 MG TABLET PO SCH ×2 (10:11→22:05)
[2019-06-16] MEDS: GABAPENTIN 400 MG CAPSULE PO SCH ×2 (10:11→22:04)
[2019-06-16] MEDS: ASPIRIN 81 MG TABLET, ENT COATED PO SCH (10:11)
--- NOTE | 2019-06-16 18:29 | PDOC PROGRESS REPORT ---
Subjective Progress Note for:: 06/16/19 Subjective:: GAVI PEDRO is a 73 year old female who presents the emergency room with acute dyspnea. She admits developing acute shortness of breath in the mid afternoon today that has not improved. She used her usual nebulizer treatments and continuing using her home oxygen at 3 L/min per nasal cannula without significant improvement. She admits the associated symptoms of mild air hunger and wheezing. Her acute dyspnea was also associated with the acute onset of chest pain which she describes as a severe heaviness in the center of the chest without radiation, that lasted about 1 hour. 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 Her dyspnea has persisted since onset and resulted in her coming to the emergency room. She admits prior similar episodes on numerous occasions related to her COPD. She has not identified any aggravating or ameliorating factors for her acute dyspnea. In the emergency room she was found to have hypoxia with her O2 sat being 89% on 3 L/min of O2 via nasal cannula. Her initial cardiac enzymes and EKG were negative for acute myocardial ischemia or injury. Patient remains significantly dyspneic and was noted to have wheezing and poor air movement on exam thus resulting in her admission to the hospital for further evaluation and treatment. 06/15/2019. Again patient was discharged but I got a call from the primary nurse that she was complaining of constipation, she received milk of magnesia which resolve her constipation however when she was using the restroom she started vomiting hence discharge was DC'd. Reason For Visit: ACUTE EXACERBATION OF COPD,CHEST PAIN Physical Exam Vital Signs: Temp Pulse Resp BP Pulse Ox 98.4 F 58 L 17 143/60 H 96 06/16/19 12:53 06/16/19 15:29 06/16/19 15:29 06/16/19 17:48 06/16/19 15:29 Intake & Output 06/15/19 06/16/19 06/17/19 06:59 06:59 06:59 Intake Total 1480 720 Balance 1480 720 Weight 79.3 kg 82.7 kg General appearance: PRESENT: no acute distress, obese, well-developed, well-nourished Head exam: PRESENT: atraumatic, normocephalic Eye exam: PRESENT: conjunctiva pink, EOMI, PERRLA. ABSENT: scleral icterus Ear exam: PRESENT: normal external ear exam Mouth exam: PRESENT: moist, tongue midline Neck exam: ABSENT: carotid bruit, JVD, lymphadenopathy, thyromegaly Respiratory exam: PRESENT: clear to auscultation ch[place]. ABSENT: rales, rhonchi, wheezes Cardiovascular exam: PRESENT: RRR. ABSENT: diastolic murmur, rubs, systolic murmur Pulses: PRESENT: normal [place] pedis pul Vascular exam: PRESENT: normal capillary refill GI/Abdominal exam: PRESENT: normal bowel sounds, soft. ABSENT: distended, guarding, mass, organolmegaly, rebound, tenderness Rectal exam: PRESENT: deferred Extremities exam: PRESENT: full ROM. ABSENT: calf tenderness, clubbing, pedal edema Neurological exam: PRESENT: alert, awake, oriented to person, oriented to place, oriented to time, oriented to situation, CN II-XII grossly intact. ABSENT: motor sensory deficit Psychiatric exam: PRESENT: appropriate affect, normal mood. ABSENT: homicidal ideation, suicidal ideation Skin exam: PRESENT: dry, intact, warm. ABSENT: cyanosis, rash Results Laboratory Results: 06/16/19 04:36 06/16/19 15:07 06/16/19 06/16/19 06/16/19 04:36 04:36 15:07 WBC 16.0 H RBC 3.15 L Hgb 9.6 L Hct 29.2 L MCV 93 MCH 30.6 MCHC 33.0 RDW 14.9 H Plt Count 156 Sodium 136.8 L Potassium 5.4 H 4.1 D Chloride 101 Carbon Dioxide 31 H Anion Gap 5 BUN 41 H Creatinine 1.22 Est GFR ( Amer) 52 L Est GFR (Non-Af Amer) 43 L Glucose 195 H Calcium 8.8 Magnesium 1.7 06/13/19 06/13/19 06/14/19 20:00 20:00 02:30 Creatine Kinase 22 L CK-MB (CK-2) 0.87 1.25 Troponin I < 0.012 < 0.012 NT-Pro-B Natriuret Pep 913 H 873 06/14/19 06/14/19 06/14/19 02:30 09:40 09:40 Creatine Kinase 22 L 20 L CK-MB (CK-2) 1.32 Troponin I < 0.012 NT-Pro-B Natriuret Pep 06/14/19 06/14/19 14:35 14:35 Creatine Kinase < 20 L CK-MB (CK-2) 1.49 Troponin I < 0.012 NT-Pro-B Natriuret Pep Impressions: Chest X-Ray 06/13/19 18:25 IMPRESSION: NO ACUTE FINDINGS. Assessment and Plan - Diagnosis (1) Acute and chronic respiratory failure with hypoxia Is this a current diagnosis for this admission?: Yes Plan: Improving. Likely due to acute on chronic COPD/CHF exacerbation. Presented with FiO2 of 88% on room air. On home O2 2 to 3 L and also uses CPAP nightly. DuoNeb's, IV steroids, flutter valve, incentive spirometry, PRN BiPAP. LABA's/LAMA's (2) Acute exacerbation of chronic obstructive pulmonary disease (COPD) Is this a current diagnosis for this admission?: Yes Plan: Per #1. (3) CAD (coronary artery disease) Qualifiers: Coronary Disease-Associated Artery/Lesion type: [place] artery [place] vs. transplanted heart: [place] heart Associated angina: with unspecified angina Qualified Code(s): I25.119 - Atherosclerotic heart disease of [place] coronary artery with unspecified angina pectoris Is this a current diagnosis for this admission?: Yes Plan: Cardiac enzyme WNL. Continue antiplatelets, statins, beta-blockers, DAYSI. Outpatient PCP follow-up (4) Chest pain Qualifiers: Chest pain type: unspecified Qualified Code(s): R07.9 - Chest pain, unspec ified Is this a current diagnosis for this admission?: Yes Plan: Resolved. Unlikely cardiac. Cardiac enzymes WNL. Admit to telemetry, continue CAD meds. (5) Chronic diastolic CHF (congestive heart failure) Is this a current diagnosis for this admission?: Yes Plan: Compensated. 06/04/2019. 2D echo showed fraction 55%. BNP 873. Cardiac diet, volume restriction, daily weights, diuretics, DAYSI, beta-blockers. Outpatient PCP follow-up. (6) Diabetes mellitus type 2 in obese Is this a current diagnosis for this admission?: Yes Plan: Controlled. A1c 6.0 Continue diabetic diet, sliding scale, pre-meal insulin, long-acting insulin, Accu-Chek, hypoglycemia protocol. Adjust dosage as needed. Restart home meds on discharge. (7) HTN (hypertension) Qualifiers: Hypertension type: essential hypertension Qualified Code(s): I10 - Essent ial (primary) hypertension Is this a current diagnosis for this admission?: Yes Plan: Restart home meds. Adjust meds as needed. (8) Obesity (BMI 30.0-34.9) Is this a current diagnosis for this admission?: Yes Plan: Diet and lifestyle modification recommended. (9) Hyperkalemia Is this a current diagnosis for this admission?: Yes Plan: Resolved. No EKG changes. Admit to telemetry. Hyperkalemia protocol. Potassium level tomorrow. (10) Hyperlipidemia Is this a current diagnosis for this admission?: Yes Plan: Continue statins. Diet and lifestyle modification recommended.
[2019-06-16] MEDS: ONDANSETRON HCL INJ/PF 4 MG/2 ML SDV IV PRN (20:04)
[2019-06-16] MEDS: LEVALBUTEROL HCL NEB 0.63 MG/3 ML AMPUL NEB PRN (20:35)
[2019-06-16] MEDS: ATORVASTATIN CALCIUM 10 MG TABLET PO SCH (22:05)
[2019-06-17] MEDS: MORPHINE SULFATE 10 MG/ML INJ IV PRN ×2 (02:58→22:01)
[2019-06-17 04:58] LABS: ABSOLUTE BASOPHILS # (AUTO) 0.1 10^3/uL (0.0-0.2); ABSOLUTE EOSINOPHILS # (AUTO) 0.1 10^3/uL (0.0-0.6); ABSOLUTE LYMPHOCYTES (AUTO) 3.7 10^3/uL (0.5-4.7); ABSOLUTE MONOCYTES (AUTO) 1.1 10^3/uL (0.1-1.4); ABSOLUTE NEUT (AUTO) 9.9 10^3/uL (1.7-8.2); BASOPHILS % (AUTO) 0.4 % (0-2); EOSINOPHILS % (AUTO) 0.4 % (0-6); HEMATOCRIT 29.7 % (36.0-47.0); HEMOGLOBIN 9.6 g/dL (12.0-15.5); LYMPHOCYTES % (AUTO) 25.3 % (13-45); MEAN CORPUSCULAR HEMOGLOBIN 30.4 pg (27.0-33.4); MEAN CORPUSCULAR HGB CONC 32.3 g/dL (32.0-36.0); MEAN CORPUSCULAR VOLUME 94 fl (80-97); MONOCYTES % (AUTO) 7.3 % (3-13); PLATELET COUNT 159 10^3/uL (150-450); RED BLOOD COUNT 3.15 10^6/uL (3.72-5.28); RED CELL DISTRIBUTION WIDTH 14.9 % (11.5-14.0); SEGMENTED NEUTROPHILS % (AUTO) 66.6 % (42-78); TOTAL CELLS COUNTED % (AUTO) 100 %; WHITE BLOOD COUNT 14.8 10^3/uL (4.0-10.5)
[2019-06-17 05:14] LABS: ANION GAP 8 (5-19); BLOOD UREA NITROGEN 47 mg/dL (7-20); CALCIUM 8.4 mg/dL (8.4-10.2); CARBON DIOXIDE 31 mmol/L (22-30); CHLORIDE 99 mmol/L (98-107); GLUCOSE 159 mg/dL (75-110)
[2019-06-17] MEDS: HEPARIN SOD (PORCINE) 5,000 UNIT/ML 1 ML VIAL SUBCUT SCH ×3 (06:50→22:01)
[2019-06-17] MEDS: PANTOPRAZOLE SODIUM 40 MG TABLET.DR PO SCH (06:57)
[2019-06-17] MEDS: INSULIN LISPRO 100 UNIT/ML 3 ML VIAL SUBCUT SCH ×4 (07:31→22:01)
[2019-06-17] MEDS: LEVALBUTEROL HCL NEB 1.25 MG/3 ML AMPUL NEB SCH ×2 (08:11→16:00)
[2019-06-17] MEDS: IPRATROPIUM BROMIDE 0.02% NEB 0.5 MG/2.5 ML AMPUL NEB SCH ×2 (08:11→16:00)
[2019-06-17] MEDS: BUDESONIDE NEB 0.5 MG/2 ML AMPUL NEB SCH ×2 (08:11→19:28)
[2019-06-17] MEDS: ASPIRIN 81 MG TABLET, ENT COATED PO SCH (09:43)
[2019-06-17] MEDS: CARVEDILOL 3.125 MG TABLET PO SCH ×2 (09:43→22:01)
[2019-06-17] MEDS: LISINOPRIL 5 MG TABLET PO SCH (09:43)
[2019-06-17] MEDS: DOCUSATE SODIUM 100 MG CAPSULE PO SCH ×2 (09:43→16:59)
[2019-06-17] MEDS: GABAPENTIN 400 MG CAPSULE PO SCH ×2 (09:43→22:01)
--- NOTE | 2019-06-17 09:48 | PDOC PROGRESS REPORT ---
Subjective Progress Note for:: 06/17/19 Subjective:: 73 year old female who presents the emergency room with acute dyspnea. She admits developing acute shortness of breath in the mid afternoon today that has not improved. She used her usual nebulizer treatments and continuing using her home oxygen at 3 L/min per nasal cannula without significant improvement. She admits the associated symptoms of mild air hunger and wheezing. Her acute dyspnea was also associated with the acute onset of chest pain which she desc ribes as a severe heaviness in the center of the chest without radiation, that lasted about 1 hour. 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 Her dyspnea has persisted since onset and resulted in her coming to the emergency room. She admits prior similar episodes on numerous occasions related to her COPD. She has not identified any aggravating or ameliorating factors for her acute dyspnea. In the emergency room she was found to have hypoxia with her O2 sat being 89% on 3 L/min of O2 via nasal cannula. Her initial cardiac enzymes and EKG were negative for acute myocardial ischemia or injury. Patient remains significantly dyspneic and was noted to have wheezing and poor air movement on exam thus resulting in her admission to the hospital for further evaluation and treatment. 06/15/2019. Again patient was discharged but I got a call from the primary nurse that she was complaining of constipation, she received milk of magnesia which resolve her constipation however when she was using the restroom she started vomiting hence discharge was DC'd. 06/[id number]-txqe-old female admitted with history of asthma she was discharged 2 days ago before leaving the hospital she started throwing up she was admitted back again. No acute events in the last 24 hours. Afebrile. Vital signs today temperature 97.9 with pulse rate of 58 and blood pressure of 122/70. Pulse ox is 96% on 2 L. WBC count is 14.8. Plan is to continue to closely monitor her for at least today and probably discharge home tomorrow. Reason For Visit: ACUTE EXACERBATION OF COPD,CHEST PAIN Physical Exam Vital Signs: Temp Pulse Resp BP Pulse Ox 98.3 F 76 19 131/47 H 96 06/17/19 08:10 06/17/19 08:10 06/17/19 08:10 06/17/19 08:10 06/17/19 08:10 Intake & Output 06/16/19 06/17/19 06/18/19 06:59 06:59 06:59 Intake Total 720 1660 Balance 720 1660 Weight 82.7 kg 81.3 kg General appearance: PRESENT: no acute distress, obese Head exam: PRESENT: atraumatic Eye exam: PRESENT: PERRLA Mouth exam: PRESENT: moist, tongue midline Teeth exam: PRESENT: poor dentation Neck exam: ABSENT: carotid bruit, JVD, lymphadenopathy, thyromegaly Respiratory exam: PRESENT: decreased breath sounds Cardiovascular exam: PRESENT: RRR. ABSENT: diastolic murmur, rubs, systolic murmur GI/Abdominal exam: PRESENT: normal bowel sounds, soft. ABSENT: distended, guarding, mass, organolmegaly, rebound, tenderness Rectal exam: PRESENT: deferred Neurological exam: PRESENT: alert, awake, oriented to person, oriented to place, oriented to time, oriented to situation, CN II-XII grossly intact. ABSENT: motor sensory deficit Psychiatric exam: PRESENT: appropriate affect, normal mood. ABSENT: homicidal ideation, suicidal ideation Results Laboratory Results: 06/17/19 03:56 06/17/19 03:56 06/16/19 06/17/19 06/17/19 15:07 03:56 03:56 WBC 14.8 H RBC 3.15 L Hgb 9.6 L Hct 29.7 L MCV 94 MCH 30.4 MCHC 32.3 RDW 14.9 H Plt Count 159 Seg Neutrophils % 66.6 Lymphocytes % 25.3 Monocytes % 7.3 Eosinophils % 0.4 Basophils % 0.4 Absolute Neutrophils 9.9 H Absolute Lymphocytes 3.7 Absolute Monocytes 1.1 Absolute Eosinophils 0.1 Absolute Basophils 0.1 Sodium 137.6 Potassium 4.1 D 4.0 Chloride 99 Carbon Dioxide 31 H Anion Gap 8 BUN 47 H Creatinine 1.25 Est GFR ( Amer) 51 L Est GFR (Non-Af Amer) 42 L Glucose 159 H Calcium 8.4 06/13/19 06/13/19 06/14/19 20:00 20:00 02:30 Creatine Kinase 22 L CK-MB (CK-2) 0.87 1.25 Troponin I < 0.012 < 0.012 NT-Pro-B Natriuret Pep 913 H 873 06/14/19 06/14/19 06/14/19 02:30 09:40 09:40 Creatine Kinase 22 L 20 L CK-MB (CK-2) 1.32 Troponin I < 0.012 NT-Pro-B Natriuret Pep 06/14/19 06/14/19 14:35 14:35 Creatine Kinase < 20 L CK-MB (CK-2) 1.49 Troponin I < 0.012 NT-Pro-B Natriuret Pep Impressions: Chest X-Ray 06/13/19 18:25 IMPRESSION: NO ACUTE FINDINGS. Assessment and Plan - Diagnosis (1) Acute and chronic respiratory failure with hypoxia Is this a current diagnosis for this admission?: Yes Plan: Improving. Likely due to acute on chronic COPD/CHF exacerbation. Presented with FiO2 of 88% on room air. On home O2 2 to 3 L and also uses CPAP nightly. DuoNeb's, IV steroids, flutter valve, incentive spirometry, PRN BiPAP. LABA's/LAMA's 06/17/2019-patient admitted with acute on chronic respiratory failure with hypoxia most likely secondary to underlying COPD/CHF exacerbation. Patient is presently on 2 L oxygen pulse ox is 96%. presently not on IV steroids. (2) Acute exacerbation of chronic obstructive pulmonary disease (COPD) Is this a current diagnosis for this admission?: Yes Plan: Per #1. 06/[id number]-[id number]-old female with history of COPD admitted with the asthma exacerbation plan is to continue scheduled and as needed nebulizations. (3) Obesity (BMI 30.0-34.9) Is this a current diagnosis for this admission?: Yes Plan: Diet and lifestyle modification recommended. (4) CAD (coronary artery disease) Qualifiers: Coronary Disease-Associated Artery/Lesion type: [place] artery [place] vs. transplanted heart: [place] heart Associated angina: with unspecified angina Qualified Code(s): I25.119 - Atherosclerotic heart disease of [place] coronary artery with unspecified angina pectoris Is this a current diagnosis for this admission?: Yes Plan: Cardiac enzyme WNL. Continue antiplatelets, statins, beta-blockers, DAYSI. Outpatient PCP follow-up 06/17/2019-patient has history of coronary artery disease no complaints of chest pain today. Plan is to continue the present management. (5) Acute on chronic diastolic (congestive) heart failure Is this a current diagnosis for this admission?: Yes Plan: Compensated. 06/04/2019. 2D echo showed fraction 55%. BNP 873. Cardiac diet, volume restriction, daily weights, diuretics, DAYSI, beta-blockers. Outpatient PCP follow-up. 06/17/2019-patient has history of diastolic heart failure not in fluid overload. Plan to continue diuretics, DAYSI inhibitors and beta-blockers. (6) HTN (hypertension) Qualifiers: Hypertension type: essential hypertension Qualified Code(s): I10 - Essential (primary) hypertension Is this a current diagnosis for this admission?: Yes Plan: Restart home meds. Adjust meds as needed. 12/18/2018-patient blood pressure today is 122/70. Stable. Is to continue lisinopril 10 mg p.o. daily. - Time Time Spent with patient: 25-34 minutes Medications reviewed and adjusted accordingly: Yes Anticipated discharge: Home
[2019-06-17] MEDS: LEVALBUTEROL HCL NEB 0.63 MG/3 ML AMPUL NEB PRN (19:28)
[2019-06-17] MEDS: ACETAMINOPHEN 325 MG TABLET PO PRN (20:01)
[2019-06-17] MEDS ORDERED: MORPHINE SULFATE 10 MG/ML INJ IV PRN ×2 (21:39)
[2019-06-17] MEDS: ATORVASTATIN CALCIUM 10 MG TABLET PO SCH (22:01)
[2019-06-18] MEDS: IPRATROPIUM BROMIDE 0.02% NEB 0.5 MG/2.5 ML AMPUL NEB SCH ×2 (00:11→08:09)
[2019-06-18] MEDS: LEVALBUTEROL HCL NEB 1.25 MG/3 ML AMPUL NEB SCH ×2 (00:11→08:09)
[2019-06-18] MEDS: MORPHINE SULFATE 10 MG/ML INJ IV PRN (03:27)
[2019-06-18 05:19] LABS: HEMATOCRIT 28.5 % (36.0-47.0); HEMOGLOBIN 9.3 g/dL (12.0-15.5); MEAN CORPUSCULAR HEMOGLOBIN 30.7 pg (27.0-33.4); MEAN CORPUSCULAR HGB CONC 32.6 g/dL (32.0-36.0); MEAN CORPUSCULAR VOLUME 94 fl (80-97); PLATELET COUNT 152 10^3/uL (150-450); RED BLOOD COUNT 3.03 10^6/uL (3.72-5.28); RED CELL DISTRIBUTION WIDTH 15.2 % (11.5-14.0); WHITE BLOOD COUNT 13.4 10^3/uL (4.0-10.5)
[2019-06-18 05:34] LABS: ABSOLUTE LYMPHOCYTES# (MANUAL) 3.2 10^3/uL (0.5-4.7); ABSOLUTE MONOCYTES # (MANUAL) 1.1 10^3/uL (0.1-1.4); BASOPHILS % (MANUAL) 0 % (0-2); EOSINOPHILS % (MANUAL) 0 % (0-6); LYMPHOCYTES % (MANUAL) 24 % (13-45); METAMYELOCYTES % (MANUAL) 1 % (0); MONOCYTES % (MANUAL) 8 % (3-13); PLATELET COMMENT ADEQUATE; SEGMENTED NEUTROPHILS % (MAN) 67 % (42-78); TOTAL CELLS COUNTED 100
[2019-06-18 05:35] LABS: ANISOCYTOSIS SLIGHT; STOMATOCYTES 1+
[2019-06-18 05:36] LABS: POIKILOCYTOSIS SLIGHT
[2019-06-18 05:37] LABS: ALANINE AMINOTRANSFERASE 19 U/L (9-52); ALBUMIN 2.8 g/dL (3.5-5.0); ALKALINE PHOSPHATASE 115 U/L (38-126); ANION GAP 5 (5-19); ASPARTATE AMINO TRANSFERASE 17 U/L (14-36); BILIRUBIN,DIRECT 0.2 mg/dL (0.0-0.4); BILIRUBIN,TOTAL 0.2 mg/dL (0.2-1.3); BLOOD UREA NITROGEN 43 mg/dL (7-20); CALCIUM 8.4 mg/dL (8.4-10.2); CARBON DIOXIDE 30 mmol/L (22-30); CHLORIDE 104 mmol/L (98-107); GLUCOSE 105 mg/dL (75-110); POTASSIUM 4.7 mmol/L (3.6-5.0); TOTAL PROTEIN 5.1 g/dL (6.3-8.2)
[2019-06-18] MEDS: HEPARIN SOD (PORCINE) 5,000 UNIT/ML 1 ML VIAL SUBCUT SCH ×2 (05:48→13:04)
[2019-06-18] MEDS: PANTOPRAZOLE SODIUM 40 MG TABLET.DR PO SCH (05:49)
[2019-06-18] MEDS: BUDESONIDE NEB 0.5 MG/2 ML AMPUL NEB SCH (08:09)
[2019-06-18] MEDS: INSULIN LISPRO 100 UNIT/ML 3 ML VIAL SUBCUT SCH ×2 (08:41→11:28)
[2019-06-18 09:17] VITALS: BP 145/55
[2019-06-18] MEDS: CARVEDILOL 3.125 MG TABLET PO SCH (09:33)
[2019-06-18] MEDS: DOCUSATE SODIUM 100 MG CAPSULE PO SCH (09:33)
[2019-06-18] MEDS: GABAPENTIN 400 MG CAPSULE PO SCH (09:33)
[2019-06-18] MEDS: ASPIRIN 81 MG TABLET, ENT COATED PO SCH (09:33)
[2019-06-18] MEDS: LISINOPRIL 5 MG TABLET PO SCH (09:33)
--- NOTE | 2019-06-18 09:42 | PDOC DISCHARGE SUMMARY ---
General - Admit/Disc Date/PCP Admission Date/Primary Care Provider: 06/13/19 21:52 STEVE SCANLON Discharge Date: 06/18/19 - Discharge Diagnosis (1) Acute and chronic respiratory failure with hypoxia Is this a current diagnosis for this admission?: Yes Summary: Improving. Likely due to acute on chronic COPD/CHF exacerbation. Presented with FiO2 of 88% on room air. On home O2 2 to 3 L and also uses CPAP nightly. DuoNeb's, IV steroids, flutter valve, incentive spirometry, PRN BiPAP. LABA's/LAMA's 06/17/2019-patient admitted with acute on chronic respiratory failure with hypoxia most likely secondary to underlying COPD/CHF exacerbation. Patient is presently on 2 L oxygen pulse ox is 96%. presently not on IV steroids. 06/18/[id number]-xbin-old female admitted with acute on chronic respiratory failure with hypoxia. Hypoxia resolved. Treated with IV steroids, flutter valve, incentive spirometry, long-acting beta agonists. Patient is doing well. No complaints of shortness of breath today comfortably in the bed. On examination chest bilateral entry was decreased no wheezing no crepitations. Pulse ox is 100% on 2 L today. (2) Acute exacerbation of chronic obstructive pulmonary disease (COPD) Is this a current diagnosis for this admission?: Yes Summary: Per #1. 06/[id number]-latj-old female with history of COPD admitted with the asthma exacerbation plan is to continue scheduled and as needed nebulizations. (3) Obesity (BMI 30.0-34.9) Is this a current diagnosis for this admission?: Yes Summary: Diet and lifestyle modification recommended. (4) CAD (coronary artery disease) Is this a current diagnosis for this admission?: Yes Summary: Cardiac enzyme WNL. Continue antiplatelets, statins, beta-blockers, DAYSI. Outpatient PCP follow-up 06/17/2019-patient has history of coronary artery disease no complaints of chest pain today. Plan is to continue the present management. 06/18/2019-patient has history of coronary artery disease no complaints of chest pain during this hospital stay. Patient is advised to continue her home medications. (5) Acute on chronic diastolic (congestive) heart failure Is this a current diagnosis for this admission?: Yes Summary: Compensated. 06/04/2019. 2D echo showed fraction 55%. BNP 873. Cardiac diet, volume restriction, daily weights, diuretics, DAYSI, beta-blockers. Outpatient PCP follow-up. (6) HTN (hypertension) Is this a current diagnosis for this admission?: Yes Summary: Restart home meds. Adjust meds as needed. 06/17/2019-patient blood pressure today is 122/70. Stable. Is to continue lisinopril 10 mg p.o. daily. 06/18/2019-patient blood pressure today is 45/55 patient is advised to continue lisinopril 10 mg p.o. daily at home. - Additional Information Resuscitation Status: Full Code Discharge Diet: As Tolerated Discharge Activity: Activity As Tolerated Prescriptions: Azithromycin [Zithromax 250 mg Tablet] 250 mg PO DAILY 4 Days #4 tablet Carvedilol [Coreg 3.125 mg Tablet] 3.125 mg PO Q12 30 Days #60 tablet Fluticasone/Umeclidin/Vilanter [Trelegy 100-62.5-25 Mcg Ellipta 14 Dose/Dpi] 1 each IH DAILY 30 Days #1 inhaler Furosemide [Lasix 20 mg Tablet] 20 mg PO QAM 30 Days #30 tablet Prednisone [Deltasone 20 mg Tablet] 40 mg PO DAILY 3 Days #3 tablet Home Medications: Albuterol Sulfate [Proair HFA Inhalation Aerosol 8.5 gm MDI] 2 puff IH Q4HP PRN 05/08/19 Aspirin [Adult Low Dose Aspirin EC] 81 mg PO DAILY 05/08/19 Atorvastatin Calcium [Lipitor 10 mg Tablet] 10 mg PO QHS 05/08/19 Gabapentin [Neurontin 400 mg Capsule] 400 mg PO Q12 05/08/19 Hydrocodone/Acetaminophen [[place] 5-325 mg Tablet] 1 tab PO Q12HP PRN 05/08/19 Lisinopril [Zestril] 5 mg PO DAILY 05/08/19 Metformin HCl [Glucophage 500 mg Tablet] 500 mg PO BID 05/08/19 Cetirizine HCl [Zyrtec 10 mg Tablet] 10 mg PO DAILY 06/14/19 Azithromycin [Zithromax 250 mg Tablet] 250 mg PO DAILY 4 Days #4 tablet 06/15/19 Carvedilol [Coreg 3.125 mg Tablet] 3.125 mg PO Q12 30 Days #60 tablet 06/15/19 Fluticasone/Umeclidin/Vilanter [Trelegy 100-62.5-25 Mcg Ellipta 14 Dose/Dpi] 1 each IH DAILY 30 Days #1 inhaler 06/15/19 Furosemide [Lasix 20 mg Tablet] 20 mg PO QAM 30 Days #30 tablet 06/15/19 Prednisone [Deltasone 20 mg Tablet] 40 mg PO DAILY 3 Days #3 tablet 06/15/19 History of Present Illness History of Present Illness: GAVI PEDRO is a 73 year old female 73 year old female who presents the emergency room with acute dyspnea. She admits developing acute shortness of breath in the mid afternoon today that has not improved. She used her usual nebulizer treatments and continuing using her home oxygen at 3 L/min per nasal cannula without significant improvement. She admits the associated symptoms of mild air hunger and wheezing. Her acute dyspnea was also associated with the acute onset of chest pain which she describes as a severe heaviness in the center of the chest without radiation, that lasted about 1 hour. 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 Her dyspnea has persisted since onset and resulted in her coming to the emergency room. She admits prior similar episodes on numerous occasions related to her COPD. She alfonso s not identified any aggravating or ameliorating factors for her acute dyspnea. In the emergency room she was found to have hypoxia with her O2 sat being 89% on 3 L/min of O2 via nasal cannula. Her initial cardiac enzymes and EKG were negative for acute myocardial ischemia or injury. Patient remains significantly dyspneic and was noted to have wheezing and poor air movement on exam thus resulting in her admission to the hospital for further evaluation and treatment. 06/15/2019. Again patient was discharged but I got a call from the primary nurse that she was complaining of constipation, she received milk of magnesia which resolve her constipation however when she was using the restroom she started vomiting hence discharge was DC'd. 06/[id number]-old female admitted with history of asthma she was discharged 2 days ago before leaving the hospital she started throwing up she was admitted back again. No acute events in the last 24 hours. Afebrile. Vital signs today temperature 97.9 with pulse rate of 58 and blood pressure of 122/70. Pulse ox is 96% on 2 L. WBC count is 14.8. Plan is to continue to closely monitor her for at least today and probably discharge home tomorrow. Hospital Course Hospital Course: 06/18/2019-patient was admitted with COPD exacerbation which was resolved. 2 days ago she was discharged prior to discharge she started having the nausea and vomiting's discharge was counseled and patient was readmitted again no complications during the hospital stay except for those episodes of nausea and vomitings. Patient does not have any nausea vomiting's anymore able to tolerate the food very well. Physical Exam Vital Signs: Temp Pulse Resp BP Pulse Ox 97.5 F 67 21 H 145/55 H 100 06/18/19 09:00 06/18/19 09:00 06/18/19 09:00 06/18/19 09:00 06/18/19 09:00 Intake & Output 06/17/19 06/18/19 06/19/19 06:59 06:59 06:59 Intake Total 1660 1380 Balance 1660 1380 Weight 81.3 kg 82.4 kg General appearance: PRESENT: no acute distress Head exam: PRESENT: atraumatic Eye exam: PRESENT: PERRLA Ear exam: PRESENT: normal external ear exam Mouth exam: PRESENT: moist, tongue midline Teeth exam: PRESENT: poor dentation Neck exam: ABSENT: carotid bruit, JVD, lymphadenopathy, thyromegaly Respiratory exam: PRESENT: decreased breath sounds Cardiovascular exam: PRESENT: RRR. ABSENT: diastolic murmur, rubs, systolic murmur GI/Abdominal exam: PRESENT: normal bowel sounds, soft. ABSENT: distended, guarding, mass, organolmegaly, rebound, tenderness Rectal exam: PRESENT: deferred Neurological exam: PRESENT: alert, awake, oriented to person, oriented to place, oriented to time, oriented to situation, CN II-XII grossly intact. ABSENT: motor sensory deficit Psychiatric exam: PRESENT: appropriate affect, normal mood. ABSENT: homicidal ideation, suicidal ideation Results Laboratory Results: 06/18/19 04:05 06/18/19 04:05 06/18/19 06/18/19 04:05 04:05 WBC 13.4 H RBC 3.03 L Hgb 9.3 L Hct 28.5 L MCV 94 MCH 30.7 MCHC 32.6 RDW 15.2 H Plt Count 152 Seg Neutrophils % Not Reportable Lymphocytes % Not Reportable Monocytes % Not Reportable Eosinophils % Not Reportable Basophils % Not Reportable Absolute Neutrophils Not Reportable Absolute Lymphocytes Not Reportable Absolute Monocytes Not Reportable Absolute Eosinophils Not Reportable Absolute Basophils Not Reportable Sodium 139.3 Potassium 4.7 Chloride 104 Carbon Dioxide 30 Anion Gap 5 BUN 43 H Creatinine 1.13 Est GFR ( Amer) 57 L Est GFR (Non-Af Amer) 47 L Glucose 105 Calcium 8.4 Magnesium 1.9 Total Bilirubin 0.2 AST 17 ALT 19 Alkaline Phosphatase 115 Total Protein 5.1 L Albumin 2.8 L 06/13/19 06/13/19 06/14/19 20:00 20:00 02:30 Creatine Kinase 22 L CK-MB (CK-2) 0.87 1.25 Troponin I < 0.012 < 0.012 NT-Pro-B Natriuret Pep 913 H 873 06/14/19 06/14/19 06/14/19 02:30 09:40 09:40 Creatine Kinase 22 L 20 L CK-MB (CK-2) 1.32 Troponin I < 0.012 NT-Pro-B Natriuret Pep 06/14/19 06/14/19 14:35 14:35 Creatine Kinase < 20 L CK-MB (CK-2) 1.49 Troponin I < 0.012 NT-Pro-B Natriuret Pep Impressions: Chest X-Ray 06/13/19 18:25 IMPRESSION: NO ACUTE FINDINGS. Qualifiers - * PATIENT BEING DISCHARGED WITH ANY OF THE FOLLOWING DIAGNOSIS: No VTE patient discharged on overlapping Therapy?: No Acute Heart Failure - Is this a Heart Failure Patient?: No Plan Time Spent: Greater than 30 Minutes
[2019-06-18] MEDS: ACETAMINOPHEN 325 MG TABLET PO PRN (10:17)
== END 2019-06-18 15:20 | disposition home or self-care (01) | DRG 189 ==
LOC: ER 17:37 → EH 21:52 → 4W 06-14 09:06 → 4N 06-14 15:20
PROVIDERS: ADMIT Emergency Medicine; ATTEND Emergency Medicine
DX: J96.21 Acute and chronic respiratory failure with hypoxia (principal); I50.23 Acute on chronic systolic (congestive) heart failure; J44.1 Chronic obstructive pulmonary disease with (acute) exacerbation; E66.9 Obesity, unspecified; I25.10 Atherosclerotic heart disease of native coronary artery without angina pectoris; I11.0 Hypertensive heart disease with heart failure; E11.9 Type 2 diabetes mellitus without complications; R07.9 Chest pain, unspecified; E87.5 Hyperkalemia; E78.5 Hyperlipidemia, unspecified; R11.10 Vomiting, unspecified; K59.00 Constipation, unspecified; Z79.82 Long term (current) use of aspirin; Z79.51 Long term (current) use of inhaled steroids; Z79.84 Long term (current) use of oral hypoglycemic drugs; Z79.899 Other long term (current) drug therapy; Z99.81 Dependence on supplemental oxygen; Z86.718 Personal history of other venous thrombosis and embolism; Z90.49 Acquired absence of other specified parts of digestive tract; Z87.891 Personal history of nicotine dependence; Z82.49 Family history of ischemic heart disease and other diseases of the circulatory system
CPT/HCPCS: 36415; 71045; 80048; 80053; 80061; 81001; 82550; 82553; 82962; 83036; 83690; 83735; 83880; 84132; 84439; 84443; 84481; 84484; 85025; 85027; 87040; 87070; 93005; 93010; 94640; 94660; 99285; J0360; J1644; J1815; J2270; J2405; J2920; J2930; J3490; J7614; J7620

== ENCOUNTER 2019-07-01 22:42 | Inpatient (IN) | payer MEDICARE ==
[2019-07-01] MEDS ORDERED: IPRATROPIUM/ALBUTEROL 0.5-2.5 MG/3 ML AMPUL NEB ONE (22:46)
[2019-07-01] MEDS ORDERED: MAGNESIUM SULFATE/D5W 1 GM/100 ML RTUPB IV ONE (22:47)
[2019-07-01] MEDS ORDERED: METHYLPREDNISOLONE INJ 125 MG/2 ML SDV IV ONE (22:47)
--- NOTE | 2019-07-01 22:57 | ER Document Report ---
ED General - General Chief Complaint: Breathing Difficulty Stated Complaint: DIFFICULTY BREATHING Time Seen by Provider: 07/01/19 22:46 Mode of Arrival: Wheelchair Information source: Patient, Relative, ON LICENSE OF [facility] Records Notes: 73-year-old female with COPD, congestive heart failure, hypertension presents via private vehicle from home with complaint of shortness of breath that started 2 hours prior to arrival while at rest. Patient reports an associated productive cough, chest tightness. Denies any fever, chills, nausea, vomiting, abdominal pain. Patient has tried her home breathing treatments without relief. She denies any inciting factors, tobacco use. Patient did have a recent admission for COPD exacerbation at [facility] in May 2019. Patient is on 3 L of continuous oxygen and reports that she has not had an increase in oxygen demand. TRAVEL OUTSIDE OF THE [place] IN LAST 30 DAYS: No - HPI Onset: Just prior to arrival Onset/Duration: Sudden Quality of pain: Other - Chest tightness Severity: Mild Associated symptoms: Chest pain, Productive cough, Shortness of breath. denies: Fever, Headache, Leg swelling, Nausea, Vomiting, Sweating Exacerbated by: Coughing Relieved by: Denies Similar symptoms previously: Yes Recently seen / treated by doctor: Yes - Related Data Allergies/Adverse Reactions: ibuprofen [From Motrin] Allergy (Intermediate, Verified 07/01/19 22:47) RASH/UTICARTIA Past Medical History - General Information source: Patient, Relative, ON LICENSE OF [facility] Records - Social History Smoking Status: Former Smoker Frequency of alcohol use: None Drug Abuse: None Lives with: Family Family History: CAD, COPD, DM, Hypertension, Malignancy Patient has suicidal ideation: No Patient has homicidal ideation: No - Past Medical History Cardiac Medical History: Reports: Hx Congestive Heart Failure, Hx Coronary Artery Disease, Hx DVT, Hx Hypertension Denies: Hx Atrial Fibrillation, Hx Heart Attack, Hx Heart Murmur Pulmonary Medical History: Reports: Hx Asthma, Hx COPD, Hx Pneumonia Denies: Hx Bronchitis, Hx Respiratory Failure, Hx Sleep Apnea, Hx Tuberculosis Neurological Medical History: Denies: Hx Cerebrovascular Accident, Hx Seizures Endocrine Medical History: Reports: Hx Diabetes Mellitus Type 2. Denies: Hx Diabetes Mellitus Type 1, Hx Hyperthyroidism, Hx Hypothyroidism Renal/ Medical History: Reports: Hx Renal Insufficiency. Denies: Hx Peritoneal Dialysis GI Medical History: Reports: Hx Diverticulitis, Hx Gastroesophageal Reflux Disease. Denies: Hx Cirrhosis, Hx Crohn's Disease, Hx Hepatitis, Hx Hiatal Hernia, Hx Pancreatitis, Hx Ulcer - ?, Hx Ulcerative Colitis Musculoskeletal Medical History: Reports Hx Arthritis, Denies Hx Gout, Denies Hx Systemic Lupus Erythematosus Skin Medical History: Denies Hx Eczema, Denies Hx Psoriasis Psychiatric Medical History: Denies: Hx Depression Traumatic Medical History: Reports: Hx Fractures - several broken ribs Infectious Medical History: Denies: Hx Hepatitis Past Surgical History: Reports: Hx Appendectomy, Hx Cholecystectomy, Hx Herniorrhaphy, Hx Hysterectomy, Hx Orthopedic Surgery - rotator cuff. Denies: Hx Mastectomy, Hx Open Heart Surgery, Hx Pacemaker - Immunizations Immunizations up to date: Yes Hx Diphtheria, Pertussis, Tetanus Vaccination: No Hx Pneumococcal Vaccination: 08/30/14 Review of Systems - Review of Systems Constitutional: Recent illness EENT: denies: Throat pain, Difficulty swallowing Cardiovascular: Chest pain, Palpitations. denies: Dizziness Respiratory: Cough, Short of breath, Wheezing Gastrointestinal: denies: Abdominal pain, Nausea, Vomiting Genitourinary: denies: Dysuria, Flank pain Female Genitourinary: No symptoms reported Musculoskeletal: No symptoms reported Skin: denies: Rash Hematologic/Lymphatic: No symptoms reported Neurological/Psychological: denies: Confusion, Weakness, Headaches -: Yes All other systems reviewed and negative Physical Exam - Vital signs Vitals: Pulse Ox 97 07/01/19 22:46 - Notes Notes: PHYSICAL EXAMINATION: GENERAL: Moderate respiratory distress HEAD: Atraumatic, normocephalic. EYES: Pupils equal round and reactive to light, extraocular movements intact, conjunctiva are normal. ENT: Nares patent, oropharynx clear without exudates. Moist mucous membranes. NECK: Normal range of motion, supple without lymphadenopathy LUNGS: Diminished breath sounds bilaterally. Accessory muscle use. Increased work of breathing. On nasal cannula. HEART: Regular rate and rhythm without murmurs ABDOMEN: Soft, nontender, nondistended abdomen. No guarding, no rebound. No masses appreciated. Female : deferred Musculoskeletal: Normal range of motion, no pitting or edema. No cyanosis. NEUROLOGICAL: Cranial nerves grossly intact. Normal speech, normal gait. Normal sensory, motor exams PSYCH: Normal mood, normal affect. SKIN: Warm, Dry, normal turgor, no rashes or lesions noted. Course - Re-evaluation Re-evalutation: Laboratory 07/01/19 07/01/19 07/01/19 23:02 23:35 23:35 WBC 8.8 RBC 3.09 L Hgb 9.5 L Hct 29.0 L MCV 94 MCH 30.9 MCHC 33.0 RDW 14.6 H Plt Count 165 Seg Neutrophils % 63.5 Lymphocytes % 26.1 Monocytes % 8.5 Eosinophils % 1.5 Basophils % 0.4 Absolute Neutrophils 5.6 Absolute Lymphocytes 2.3 Absolute Monocytes 0.7 Absolute Eosinophils 0.1 Absolute Basophils 0.0 Carbonic Acid 1.57 H HCO3/H2CO3 Ratio 20:1 ABG pH 7.41 ABG pCO2 52.2 H ABG pO2 124.1 H ABG HCO3 32.3 H ABG Total CO2 33.9 H ABG O2 Saturation 98.4 H ABG Base Excess 6.7 FiO2 2L Sodium 140.2 Potassium 4.5 Chloride 102 Carbon Dioxide 32 H Anion Gap 6 BUN 25 H Creatinine 1.29 H Est GFR ( Amer) 49 L Est GFR (Non-Af Amer) 41 L Glucose 136 H Calcium 8.6 Total Bilirubin 0.3 Direct Bilirubin 0.2 Neonat Total Bilirubin Not Reportable Neonat Direct Bilirubin Not Reportable Neonat Indirect Bili Not Reportable AST 21 ALT 12 Alkaline Phosphatase 110 Troponin I NT-Pro-B Natriuret Pep Total Protein 5.8 L Albumin 3.3 L 07/01/19 23:35 WBC RBC Hgb Hct MCV MCH MCHC RDW Plt Count Seg Neutrophils % Lymphocytes % Monocytes % Eosinophils % Basophils % Absolute Neutrophils Absolute Lymphocytes Absolute Monocytes Absolute Eosinophils Absolute Basophils Carbonic Acid HCO3/H2CO3 Ratio ABG pH ABG pCO2 ABG pO2 ABG HCO3 ABG Total CO2 ABG O2 Saturation ABG Base Excess FiO2 Sodium Potassium Chloride Carbon Dioxide Anion Gap BUN Creatinine Est GFR ( Amer) Est GFR (Non-Af Amer) Glucose Calcium Total Bilirubin Direct Bilirubin Neonat Total Bilirubin Neonat Direct Bilirubin Neonat Indirect Bili AST ALT Alkaline Phosphatase Troponin I < 0.012 NT-Pro-B Natriuret Pep 1160 H Total Protein Albumin Chest X-Ray 07/01/19 22:46 IMPRESSION: No definite pneumonia. Probable emphysema. Temp Pulse Resp BP Pulse Ox 27 H 99 07/01/19 23:25 07/01/19 23:25 07/01/19 23:01 73-year-old female with CHF and COPD presents with 3 hours of shortness of breath and productive cough. Patient was brought immediately from the waiting room and placed on athletic monitor and breathing treatments were initiated. She will receive IV Solu-Medrol, magnesium. Patient was placed on BiPAP. Will reevaluate after medication administration. 07/02/19 02:23 Patient reports great improvement of her shortness of breath after receiving breathing treatments and being placed on BiPAP. She is requesting a trial off BiPAP and we returned her to her nasal cannula at 3 L which is her normal O2 requirement. Patient has maintained an O2 saturation of 93% which went trending seems to be at her baseline. Patient will be ambulated on pulse ox and reevaluated. 07/02/19 02:32 Patient ambulated on pulse ox and had a desaturation down to 77%. Patient will be placed back on BiPAP and admitted by Dr. Ruiz. - Vital Signs Vital signs: Temp Pulse Resp BP Pulse Ox 97.7 F 17 168/76 H 94 07/02/19 03:01 07/02/19 03:01 07/02/19 03:01 07/02/19 03:01 - Laboratory Result Diagrams: 07/01/19 23:35 07/01/19 23:35 Laboratory results interpreted by me: 07/01/19 07/01/19 07/01/19 23:02 23:35 23:35 RBC 3.09 L Hgb 9.5 L Hct 29.0 L RDW 14.6 H Carbonic Acid 1.57 H ABG pCO2 52.2 H ABG pO2 124.1 H ABG HCO3 32.3 H ABG Total CO2 33.9 H ABG O2 Saturation 98.4 H Carbon Dioxide 32 H BUN 25 H Creatinine 1.29 H Est GFR ( Amer) 49 L Est GFR (Non-Af Amer) 41 L Glucose 136 H NT-Pro-B Natriuret Pep Total Protein 5.8 L Albumin 3.3 L 07/01/19 23:35 RBC Hgb Hct RDW Carbonic Acid ABG pCO2 ABG pO2 ABG HCO3 ABG Total CO2 ABG O2 Saturation Carbon Dioxide BUN Creatinine Est GFR ( Amer) Est GFR (Non-Af Amer) Glucose NT-Pro-B Natriuret Pep 1160 H Total Protein Albumin - Diagnostic Test Radiology reviewed: Image reviewed, Reports reviewed - EKG Interpretation by Me EKG shows normal: Sinus rhythm Rate: Tachycardia Rhythm: NSR [place]/QRS: LBBB When compared to previous EKG there are: No significant change Discharge - Discharge Clinical Impression: Renal insufficiency Chronic respiratory failure Qualifiers: Respiratory failure complication: hypoxia and hypercapnia Qualified Code(s): J96.11 - Chronic respiratory failure with hypoxia Chest pain Qualifiers: Chest pain type: unspecified Qualified Code(s): R07.9 - Chest pain, unspecified Anemia Qualifiers: Anemia type: unspecified type Qualified Code(s): D64.9 - Anemia, unspecified Condition: Fair Disposition: ADMITTED INPATIENT Admitting Provider: Sara (Hospitalist) Unit Admitted: Medical Floor
[2019-07-01 23:25] LABS: ARTERIAL BLOOD BASE EXCESS 6.7 mmol/L; ARTERIAL BLOOD H2CO3 1.57 mmol/L (1.05-1.35); ARTERIAL BLOOD HCO3 32.3 mmol/L (20-24); ARTERIAL BLOOD O2 SATURATION 98.4 % (94-98); ARTERIAL BLOOD PCO2 52.2 mmHg (35-45); ARTERIAL BLOOD PH 7.41 (7.35-7.45); ARTERIAL BLOOD PO2 124.1 mmHg (80-100); ARTERIAL BLOOD TOTAL CO2 33.9 mmol/L (21-25)
[2019-07-01 23:26] LABS: ARTERIAL BLOOD FIO2 2L
[2019-07-01 23:51] LABS: ABSOLUTE EOSINOPHILS # (AUTO) 0.1 10^3/uL (0.0-0.6); ABSOLUTE LYMPHOCYTES (AUTO) 2.3 10^3/uL (0.5-4.7); ABSOLUTE MONOCYTES (AUTO) 0.7 10^3/uL (0.1-1.4); ABSOLUTE NEUT (AUTO) 5.6 10^3/uL (1.7-8.2); BASOPHILS % (AUTO) 0.4 % (0-2); EOSINOPHILS % (AUTO) 1.5 % (0-6); HEMOGLOBIN 9.5 g/dL (12.0-15.5); LYMPHOCYTES % (AUTO) 26.1 % (13-45); MEAN CORPUSCULAR HEMOGLOBIN 30.9 pg (27.0-33.4); MEAN CORPUSCULAR VOLUME 94 fl (80-97); MONOCYTES % (AUTO) 8.5 % (3-13); PLATELET COUNT 165 10^3/uL (150-450); RED BLOOD COUNT 3.09 10^6/uL (3.72-5.28); RED CELL DISTRIBUTION WIDTH 14.6 % (11.5-14.0); SEGMENTED NEUTROPHILS % (AUTO) 63.5 % (42-78); TOTAL CELLS COUNTED % (AUTO) 100 %; WHITE BLOOD COUNT 8.8 10^3/uL (4.0-10.5)
--- NOTE | 2019-07-01 23:53 | RADIOLOGY REPORT (SQ) ---
CLINICAL HISTORY: sob COMPARISON: 06/13/2019. TECHNIQUE: XR CHEST 1 VIEW 07/01/2019 10:46 PM CDT FINDINGS: The heart is enlarged. Lungs are hyperinflated. There is no pleural effusion. There is no pneumothorax. Fracture of the left seventh rib is again noted. Right seventh rib fracture is also old. IMPRESSION: No definite pneumonia. Probable emphysema.
[2019-07-02 00:07] LABS: ALBUMIN 3.3 g/dL (3.5-5.0); ALKALINE PHOSPHATASE 110 U/L (38-126); ANION GAP 6 (5-19); ASPARTATE AMINO TRANSFERASE 21 U/L (14-36); BILIRUBIN,DIRECT 0.2 mg/dL (0.0-0.4); BILIRUBIN,TOTAL 0.3 mg/dL (0.2-1.3); BLOOD UREA NITROGEN 25 mg/dL (7-20); CALCIUM 8.6 mg/dL (8.4-10.2); CARBON DIOXIDE 32 mmol/L (22-30); CHLORIDE 102 mmol/L (98-107); GLUCOSE 136 mg/dL (75-110); POTASSIUM 4.5 mmol/L (3.6-5.0); TOTAL PROTEIN 5.8 g/dL (6.3-8.2)
[2019-07-02 00:19] LABS: NT PRO BNP 1160 pg/mL (5-900); TROPONIN I < 0.012 ng/mL
[2019-07-02] MEDS ORDERED: IPRATROPIUM/ALBUTEROL 0.5-2.5 MG/3 ML AMPUL NEB ONE (00:50)
[2019-07-02] MEDS ORDERED: MORPHINE SULFATE 10 MG/ML INJ IV ONE (00:50)
[2019-07-02] MEDS ORDERED: ONDANSETRON HCL INJ/PF 4 MG/2 ML SDV IV ONE (00:50)
[2019-07-02] MEDS ORDERED: DOXYCYCLINE HYCLATE 100 MG TABLET PO ONE (02:23)
[2019-07-02] MEDS ORDERED: MAGNESIUM HYDROXIDE SUSP 30 ML UDCUP PO PRN (03:21)
[2019-07-02] MEDS ORDERED: ONDANSETRON HCL INJ/PF 4 MG/2 ML SDV IV PRN (03:21)
[2019-07-02] MEDS ORDERED: MAG HYDROX/AL HYDROX/SIMETH SUSP 30 ML UDCUP PO PRN (03:21)
[2019-07-02] MEDS ORDERED: LEVALBUTEROL HCL NEB 0.63 MG/3 ML AMPUL NEB PRN (03:21)
[2019-07-02] MEDS ORDERED: ACETAMINOPHEN 325 MG TABLET PO PRN (03:27)
[2019-07-02] MEDS ORDERED: MORPHINE SULFATE 10 MG/ML INJ IV PRN ×3 (03:27→04:59)
[2019-07-02] MEDS ORDERED: GLUCAGON,HUMAN RECOMB 1 MG INJ IM PRN (03:28)
[2019-07-02] MEDS ORDERED: DEXTROSE 40% GEL 15 GM TUBE PO PRN ×2 (03:28)
[2019-07-02] MEDS ORDERED: DEXTROSE 50%-WATER 25 GM/50 ML DISP.SYRIN IV PRN ×2 (03:28)
[2019-07-02] MEDS ORDERED: HYDRALAZINE HCL INJ/PF 20 MG/1 ML SDV IV PRN (05:08)
[2019-07-02] MEDS ORDERED: TORSEMIDE 20 MG TABLET PO ONE (05:39)
--- NOTE | 2019-07-02 05:39 | PDOC H&P ---
History of Present Illness Admission Date/PCP: 07/02/19 02:43 STEVE SCANLON Patient complains of: Dyspnea History of Present Illness: GAVI PEDRO is a 73 year old female who presented to the emergency room with a 2- hour history of dyspnea. Patient admits to the abrupt onset of dyspnea approximately 2 hours prior to her arrival in the emergency room while she was resting in her recliner watching television. She explains that she suddenly felt severely short of breath, got up from the chair, used her home nebulizers along with her home oxygen and when this did not improve her breathing she decided to come to the emergency room. Her dyspnea was made worse by exertion. She admits that her dyspnea has been associated with her chronic productive cough and has been accompanied by wheezing, a sensation of tightness in her chest worse with inspiration and a sensation of tightness/swelling all over her body. She denies other accompanying or associated symptoms. She admits num erous prior similar episodes related to her COPD and congestive heart failure. He has not identified any additional aggravating or ameliorating factors for her dyspnea. In the emergency room she was found to have hypoxia with an O2 sat of 70% on her arrival. Her chest x-ray showed no acute pulmonary or cardiac process. Her laboratory values including an EKG and cardiac enzymes showed no evidence of acute disease and were within her usual baseline range of values. She was treated with BiPAP, nebulizer therapy and Solu-Medrol with an excellent response. She was however unable to return to her usual oxygen at 3 L/min via nasal cannula and sustain any mild exertion without significant desaturation. She was subsequently admitted to the hospital for further evaluation and treatment. Past Medical History Cardiac Medical History: Reports: Congestive Heart Failure, Coronary Artery Disease, DVT, Hypertension Denies: Atrial Fibrillation, Myocardial Infarction, Heart Murmur Pulmonary Medical History: Reports: Asthma, Chronic Obstructive Pulmonary Disease (COPD), Pneumonia Denies: Bronchitis, Respiratory Failure, Sleep Apnea, Tuberculosis EENT Medical History: Reports: Nose - Allergic rhinitis Denies: Cataracts, Ears - Hearing aids Neurological Medical History: Denies: Hemorrhagic CVA, Ischemic CVA, Multiple Sclerosis, Seizures Endocrine Medical History: Reports: Diabetes Mellitus Type 2 Denies: Diabetes Mellitus Type 1, Hyperthyroidism, Hypothyroidism Renal/ Medical History: Reports: Chronic Kidney Disease Denies: Nephrolithiasis Malignancy Medical History: Reports: None GI Medical History: Reports: Diverticulitis, Gastroesophageal Reflux Disease Denies: Cirrhosis, Crohn's Disease, Hepatitis, Hiatal Hernia, Ulcerative Colitis Musculoskeltal Medical History: Reports: Arthritis Denies: Gout Skin Medical History: Denies: Eczema, Psoriasis Psychiatric Medical History: Reports: Tobacco Dependency Denies: Alcohol Dependency, Depression, Substance Abuse Traumatic Medical History: Reports: None Hematology: Reports: Anemia Denies: Bleeding Tendencies Infectious Medical History: Reports: None Past Surgical History Past Surgical History: Reports: Appendectomy, Cholecystectomy, Herniorrhaphy, Hysterectomy, Orthopedic Surgery - rotator cuff Social History Information Source: Patient Lives with: Family Smoking Status: Former Smoker Frequency of Alcohol Use: None Hx Recreational Drug Use: No Drugs: None Hx Prescription Drug Abuse: No - Advance Directive Resuscitation Status: Full Code Surrogate healthcare decision maker:: Edwardo Pedro Family History Family History: CAD, COPD, DM, Hypertension, Malignancy Parental Family History Reviewed: Yes Children Family History Reviewed: No Sibling(s) Family History Reviewed.: Yes Medication/Allergy Home Medications: Albuterol Sulfate [Proair HFA Inhalation Aerosol 8.5 gm MDI] 2 puff IH Q4HP PRN 05/08/19 Aspirin [Adult Low Dose Aspirin EC] 81 mg PO DAILY 05/08/19 Atorvastatin Calcium [Lipitor 10 mg Tablet] 10 mg PO QHS 05/08/19 Gabapentin [Neurontin 400 mg Capsule] 400 mg PO Q12 05/08/19 Hydrocodone/Acetaminophen [Cherry 5-325 mg Tablet] 1 tab PO Q12HP PRN 05/08/19 Lisinopril [Zestril] 5 mg PO DAILY 05/08/19 Metformin HCl [Glucophage 500 mg Tablet] 500 mg PO BID 05/08/19 Cetirizine HCl [Zyrtec 10 mg Tablet] 10 mg PO DAILY 06/14/19 Azithromycin [Zithromax 250 mg Tablet] 250 mg PO DAILY 4 Days #4 tablet 06/15/19 Carvedilol [Coreg 3.125 mg Tablet] 3.125 mg PO Q12 30 Days #60 tablet 06/15/19 Fluticasone/Umeclidin/Vilanter [Trelegy 100-62.5-25 Mcg Ellipta 14 Dose/Dpi] 1 each IH DAILY 30 Days #1 inhaler 06/15/19 Furosemide [Lasix 20 mg Tablet] 20 mg PO QAM 30 Days #30 tablet 06/15/19 Prednisone [Deltasone 20 mg Tablet] 40 mg PO DAILY 3 Days #3 tablet 06/15/19 Allergies/Adverse Reactions: ibuprofen [From Motrin] Allergy (Intermediate, Verified 07/01/19 22:47) RASH/UTICARTIA Review of Systems Constitutional: ABSENT: chills, fever(s) Eyes: ABSENT: visual disturbances, other - Eye pain Ears: ABSENT: hearing changes, other - Ear pain Nose, Mouth, and Throat: ABSENT: mouth pain, sore throat Cardiovascular: PRESENT: as per HPI, chest pain - Tightness, dyspnea on exertion, edema - Bilateral lower extremities. ABSENT: orthropnea, palpitations Respiratory: PRESENT: as per HPI, cough, dyspnea, sputum. ABSENT: hemoptysis Gastrointestinal: ABSENT: abdominal pain, constipation, diarrhea, nausea, vomiting Genitourinary: ABSENT: dysuria, hematuria Musculoskeletal: ABSENT: back pain, joint swelling, muscle weakness Integumentary: ABSENT: pruritus, rash Neurological: ABSENT: confusion, convulsions, focal weakness, memory loss, syncope Psychiatric: ABSENT: anxiety, depression Endocrine: ABSENT: cold intolerance, heat intolerance Hematologic/Lymphatic: ABSENT: easy bleeding, easy bruising Allergic/Immunologic: ABSENT: seasonal rhinorrhea Physical Exam Vital Signs: Temp Pulse Resp BP Pulse Ox 20 206/75 H 97 07/02/19 02:36 07/02/19 02:36 07/02/19 02:36 Intake & Output 06/30/19 07/01/19 07/02/19 23:59 23:59 23:59 Intake Total 100 Balance 100 General appearance: PRESENT: no acute distress, cooperative, other Head exam: PRESENT: atraumatic, normocephalic Eye exam: PRESENT: conjunctiva pink. ABSENT: conjunctival injection, scleral icterus Ear exam: PRESENT: normal external ear exam. ABSENT: bleeding, drainage Mouth exam: PRESENT: dry mucosa, neck supple Neck exam: ABSENT: JVD, thyromegaly, tracheal deviation Respiratory exam: PRESENT: decreased breath sounds - Moderately decreased breath sounds throughout all [place], prolonged expiratory phas - Moderately prolonged expiratory phase in all [place], symmetrical, wheezes - Mild expiratory wheezes in all [place] Cardiovascular exam: PRESENT: RRR. ABSENT: clicks, gallop, rubs Pulses: PRESENT: normal radial pulses, normal dorsalis pedis pul Vascular exam: PRESENT: normal capillary refill. ABSENT: pallor GI/Abdominal exam: PRESENT: normal bowel sounds, soft Rectal exam: PRESENT: deferred Extremities exam: PRESENT: +1 edema - 1+ pretibial pitting edema bilaterally. ABSENT: joint swelling, pedal edema Musculoskeletal exam: PRESENT: full ROM, normal inspection. ABSENT: tenderness Neurological exam: PRESENT: alert, oriented to person, oriented to place, oriented to time, oriented to situation, CN II-XII grossly intact. ABSENT: motor sensory deficit Psychiatric exam: PRESENT: appropriate affect, normal mood Skin exam: PRESENT: dry, intact, warm. ABSENT: jaundice, rash, urticaria Results Laboratory Results: 07/01/19 23:35 07/01/19 23:35 07/01/19 07/01/19 07/01/19 23:02 23:35 23:35 WBC 8.8 RBC 3.09 L Hgb 9.5 L Hct 29.0 L MCV 94 MCH 30.9 MCHC 33.0 RDW 14.6 H Plt Count 165 Seg Neutrophils % 63.5 Lymphocytes % 26.1 Monocytes % 8.5 Eosinophils % 1.5 Basophils % 0.4 Absolute Neutrophils 5.6 Absolute Lymphocytes 2.3 Absolute Monocytes 0.7 Absolute Eosinophils 0.1 Absolute Basophils 0.0 Carbonic Acid 1.57 H HCO3/H2CO3 Ratio 20:1 ABG pH 7.41 ABG pCO2 52.2 H ABG pO2 124.1 H ABG HCO3 32.3 H ABG O2 Saturation 98.4 H ABG Base Excess 6.7 FiO2 2L Sodium 140.2 Potassium 4.5 Chloride 102 Carbon Dioxide 32 H Anion Gap 6 BUN 25 H Creatinine 1.29 H Est GFR ( Amer) 49 L Est GFR (Non-Af Amer) 41 L Glucose 136 H Calcium 8.6 Total Bilirubin 0.3 AST 21 Alkaline Phosphatase 110 Total Protein 5.8 L Albumin 3.3 L 07/01/19 23:35 Troponin I < 0.012 NT-Pro-B Natriuret Pep 1160 H Impressions: Chest X-Ray 07/01/19 22:46 IMPRESSION: No definite pneumonia. Probable emphysema. Assessment and Plan - Diagnosis (1) Acute exacerbation of chronic obstructive pulmonary disease (COPD) Is this a current diagnosis for this admission?: Yes Plan: Patient will be treated with aggressive pulmonary toilet utilizing Xopenex, Atrovent and Pulmicort administered via nebulizer therapy. She will additional ly get a short course of intravenous Solu-Medrol therapy and will receive supplemental oxygen via nasal cannula and/or positive pressure noninvasive airway devices such as BiPAP or CPAP. Her clinical course be followed closely. Daily CBCs, BMPs and magnesium levels will be followed. (2) Acute on chronic respiratory failure with hypoxemia Is this a current diagnosis for this admission?: Yes Plan: Patient be treated with supplemental oxygen via nasal cannula and or noninvasive positive pressure airway support devices such as BiPAP and CPAP. O2 sat will be monitored frequently and maintained in therapeutic range 88 to 92%. (3) Chest pain Qualifiers: Chest pain type: unspecified Qualified Code(s): R07.9 - Chest pain, unspecified Is this a current diagnosis for this admission?: Yes Plan: Serial cardiac enzymes and EKGs will be performed to evaluate the patient's chest chest tightness on inspiration. She will be on a telemetry bed. Patient will receive morphine sulfate 2 to 4 mg IV every 2 hours on a as needed basis for chest pain dosed per sliding scale. (4) GERD (gastroesophageal reflux disease) Qualifiers: Esophagitis presence: without esophagitis Qualified Code(s): K21.9 - Gastro-esophageal reflux disease without esophagitis Is this a current diagnosis for this admission?: Yes Plan: Will be continued on her usual medications and follow clinically for any significant changes in her status. (5) Chronic diastolic CHF (congestive heart failure) Is this a current diagnosis for this admission?: Yes Plan: Will be continued on her usual medications and followed clinically for any sign ificant changes in her status. (6) Diabetes mellitus type 2 in obese Is this a current diagnosis for this admission?: Yes Plan: Will be continued on her usual medications and follow clinically for any significant changes in her status. She will also be on a diabetic diet and will have before meals and at bedtime Accu-Cheks performed with sliding scale insulin administered for hyperglycemia and a hypoglycemic protocol in place. (7) Hypothyroidism Qualifiers: Hypothyroidism type: unspecified Qualified Code(s): E03.9 - Hypothyroidism, unspecified Is this a current diagnosis for this admission?: Yes Plan: Will be continued on her usual medications and follow clinically for any significant changes in her status. (8) Hyperlipidemia Qualifiers: Hyperlipidemia type: unspecified Qualified Code(s): E78.5 - Hyperlipidemia, unspecified Is this a current diagnosis for this admission?: Yes Plan: Will be continued on her usual medications and follow clinically for any signif icant changes in her status. (9) HTN (hypertension) Qualifiers: Hypertension type: essential hypertension Qualified Code(s): I10 - Essential (primary) hypertension Is this a current diagnosis for this admission?: Yes Plan: Will be continued on her usual medications and follow clinically for any significant changes in her status. Patient's vital signs be followed closely throughout her hospital course. - Time Time Spent with patient: 15-24 minutes Medications reviewed and adjusted accordingly: Yes Anticipated discharge: Home - Inpatient Certification Based on my medical assessment, after consideration of the patient's comorbidities, presenting symptoms, or acuity I expect that the services needed warrant INPATIENT care.: Yes I certify that my determination is in accordance with my understanding of Medicare's requirements for reasonable and necessary INPATIENT services [42 CFR 412.3e].: Yes Medical Necessity: Significant Comorbidiites Make Outpatient Treatment Too Risky, Need Close Monitoring Due to Risk of Patient Decompensation, Need For Continuous Telemetry Monitoring, Need for Nebulizer Therapy and Monitoring of Response, Risk of Complication if Not Cared For in Hospital
[2019-07-02] MEDS: PANTOPRAZOLE SODIUM 40 MG TABLET.DR PO SCH ×2 (05:55→17:25)
[2019-07-02] MEDS: HEPARIN SOD (PORCINE) 5,000 UNIT/ML 1 ML VIAL SUBCUT SCH ×3 (05:56→21:44)
[2019-07-02 06:38] LABS: CREATINE KINASE MB 1.04 ng/mL (<4.55)
[2019-07-02 06:49] LABS: TROPONIN I < 0.012 ng/mL
[2019-07-02] MEDS: LEVALBUTEROL HCL NEB 1.25 MG/3 ML AMPUL NEB SCH ×2 (08:09→16:13)
[2019-07-02] MEDS: IPRATROPIUM BROMIDE 0.02% NEB 0.5 MG/2.5 ML AMPUL NEB SCH ×2 (08:09→16:13)
[2019-07-02] MEDS: BUDESONIDE NEB 0.5 MG/2 ML AMPUL NEB SCH ×2 (08:09→20:09)
[2019-07-02] MEDS: METFORMIN HCL 500 MG TABLET PO SCH ×2 (08:27→17:25)
[2019-07-02] MEDS: INSULIN REG, HUMAN 100 UNIT/ML 3 ML VIAL (PYX) SUBCUT SCH ×4 (08:27→21:44)
--- NOTE | 2019-07-02 09:11 | EKG REPORT ---
SEVERITY:- ABNORMAL ECG - SINUS RHYTHM LEFT BUNDLE BRANCH BLOCK : Confirmed by: Paras Alvarado MD 02-Jul-2019 09:11:00
[2019-07-02] MEDS: CARVEDILOL 3.125 MG TABLET PO SCH ×2 (09:25→22:35)
[2019-07-02] MEDS: ASPIRIN 81 MG TABLET, ENT COATED PO SCH (09:25)
[2019-07-02] MEDS: DOCUSATE SODIUM 100 MG CAPSULE PO SCH ×2 (09:25→17:25)
[2019-07-02] MEDS: DOXYCYCLINE HYCLATE 100 MG TABLET PO SCH ×2 (09:25→17:25)
[2019-07-02] MEDS: GABAPENTIN 400 MG CAPSULE PO SCH ×2 (09:26→22:35)
[2019-07-02] MEDS: LISINOPRIL 5 MG TABLET PO SCH (09:26)
[2019-07-02] MEDS: METHYLPREDNISOLONE INJ 40 MG/1 ML SDV IV SCH ×2 (09:26→22:34)
[2019-07-02] MEDS: FUROSEMIDE 20 MG TABLET PO SCH (09:26)
[2019-07-02] MEDS: MORPHINE SULFATE 10 MG/ML INJ IV PRN ×3 (09:33→18:26)
[2019-07-02 12:20] LABS: CREATINE KINASE MB 1.68 ng/mL (<4.55)
[2019-07-02 12:24] LABS: TROPONIN I < 0.012 ng/mL
--- NOTE | 2019-07-02 14:26 | EKG REPORT ---
SEVERITY:- ABNORMAL ECG - SINUS RHYTHM LEFT BUNDLE BRANCH BLOCK : Confirmed by: Paras Alvarado MD 02-Jul-2019 14:26:09
--- NOTE | 2019-07-02 16:24 | Progress Note Acknowledgement ---
Progress Note Acknowledgement Progess Note Acknowledgement: I, the undersigned member of the medical staff with appropriate privileges and with supervisory authority over [ PAC ], a dependent practice allied health professional, acknowledge that I have reviewed the progress notes entered on this patient, and in my professional judgment believe that the assessment made and/or any care evidenced was appropriate
[2019-07-02 17:58] LABS: CREATINE KINASE MB 3.03 ng/mL (<4.55)
[2019-07-02 18:01] LABS: TROPONIN I < 0.012 ng/mL
[2019-07-03] MEDS: IPRATROPIUM BROMIDE 0.02% NEB 0.5 MG/2.5 ML AMPUL NEB SCH ×4 (00:47→23:45)
[2019-07-03] MEDS: LEVALBUTEROL HCL NEB 1.25 MG/3 ML AMPUL NEB SCH ×4 (00:47→23:45)
[2019-07-03 04:10] LABS: HEMATOCRIT 31.5 % (36.0-47.0); HEMOGLOBIN 10.5 g/dL (12.0-15.5); MEAN CORPUSCULAR HEMOGLOBIN 30.5 pg (27.0-33.4); MEAN CORPUSCULAR HGB CONC 33.2 g/dL (32.0-36.0); MEAN CORPUSCULAR VOLUME 92 fl (80-97); PLATELET COUNT 196 10^3/uL (150-450); RED BLOOD COUNT 3.43 10^6/uL (3.72-5.28); RED CELL DISTRIBUTION WIDTH 14.5 % (11.5-14.0); WHITE BLOOD COUNT 12.8 10^3/uL (4.0-10.5)
[2019-07-03 04:34] LABS: ANION GAP 11 (5-19); BLOOD UREA NITROGEN 42 mg/dL (7-20); CALCIUM 8.6 mg/dL (8.4-10.2); CARBON DIOXIDE 32 mmol/L (22-30); CHLORIDE 95 mmol/L (98-107); GLUCOSE 200 mg/dL (75-110)
[2019-07-03] MEDS: HEPARIN SOD (PORCINE) 5,000 UNIT/ML 1 ML VIAL SUBCUT SCH ×3 (05:04→21:34)
[2019-07-03] MEDS: PANTOPRAZOLE SODIUM 40 MG TABLET.DR PO SCH ×2 (05:48→16:29)
[2019-07-03] MEDS: INSULIN REG, HUMAN 100 UNIT/ML 3 ML VIAL (PYX) SUBCUT SCH ×4 (07:56→22:33)
[2019-07-03] MEDS: METFORMIN HCL 500 MG TABLET PO SCH ×2 (07:56→16:29)
[2019-07-03] MEDS: BUDESONIDE NEB 0.5 MG/2 ML AMPUL NEB SCH ×2 (08:02→19:52)
[2019-07-03] MEDS: DOXYCYCLINE HYCLATE 100 MG TABLET PO SCH ×2 (08:42→17:41)
[2019-07-03] MEDS: FUROSEMIDE 20 MG TABLET PO SCH (11:22)
[2019-07-03] MEDS: DOCUSATE SODIUM 100 MG CAPSULE PO SCH ×2 (11:22→17:40)
[2019-07-03] MEDS: METHYLPREDNISOLONE INJ 40 MG/1 ML SDV IV SCH (11:22)
[2019-07-03] MEDS: ASPIRIN 81 MG TABLET, ENT COATED PO SCH (11:23)
[2019-07-03] MEDS: LISINOPRIL 5 MG TABLET PO SCH (11:23)
[2019-07-03] MEDS: GABAPENTIN 400 MG CAPSULE PO SCH ×2 (11:23→21:33)
[2019-07-03] MEDS: MORPHINE SULFATE 10 MG/ML INJ IV PRN ×3 (11:39→23:32)
[2019-07-03] MEDS: CARVEDILOL 3.125 MG TABLET PO SCH ×2 (11:47→21:33)
[2019-07-03] MEDS ORDERED: ACETAMINOPHEN 325 MG TABLET PO PRN (14:37)
[2019-07-03] MEDS ORDERED: ONDANSETRON HCL INJ/PF 4 MG/2 ML SDV IV PRN (15:00)
--- NOTE | 2019-07-03 15:14 | PDOC PROGRESS REPORT ---
Subjective Progress Note for:: 07/03/19 Subjective:: 07/03/2019 patient was admitted to the hospital yesterday on 811 for COPD exacerbation patient is been admitted to the hospital frequently for the same complaint patient states her shortness of breath started about 2 hours prior to the ED. Patient states that she has had similar complaints. In the ED her sat was around 70% chest x-ray showed no acute pneumonia. Patient was admitted to the hospital for BiPAP pulmonary toiletry, and her home medicines. The plan is for 1 or 2 days of nebulizer treatments, starting her on p.o. antibiotics, BiPAP as needed and discharge when feeling better Reason For Visit: ACUTE RESPIRATORY FAILURE WITH HYPOXIA, ACUTE Physical Exam Vital Signs: Temp Pulse Resp BP Pulse Ox 97.5 F 69 16 134/67 H 94 07/03/19 11:00 07/03/19 11:00 07/03/19 11:00 07/03/19 11:00 07/03/19 11:00 Intake & Output 07/02/19 07/03/19 07/04/19 06:59 06:59 06:59 Intake Total 100 1371 Output Total 1750 Balance 100 -379 Weight 89.2 kg 89.3 kg General appearance: PRESENT: no acute distress, other - Patient is talking in full sentences with nasal cannula oxygen on this morning Head exam: PRESENT: atraumatic, normocephalic Respiratory exam: PRESENT: rhonchi - Scattered Cardiovascular exam: PRESENT: RRR. ABSENT: diastolic murmur, rubs, systolic murmur Neurological exam: PRESENT: alert, awake, oriented to person, oriented to place, oriented to time, oriented to situation, CN II-XII grossly intact. ABSENT: motor sensory deficit Psychiatric exam: PRESENT: appropriate affect, normal mood. ABSENT: homicidal ideation, suicidal ideation Results Laboratory Results: 07/03/19 03:12 07/03/19 03:12 07/02/19 07/03/19 07/03/19 17:15 03:12 03:12 WBC 12.8 H RBC 3.43 L Hgb 10.5 L Hct 31.5 L MCV 92 MCH 30.5 MCHC 33.2 RDW 14.5 H Plt Count 196 Sodium 138.3 Potassium 5.0 Chloride 95 L Carbon Dioxide 32 H Anion Gap 11 BUN 42 H Creatinine 1.67 H Est GFR ( Amer) 36 L Est GFR (Non-Af Amer) 30 L Glucose 200 H Lactic Acid 2.9 H Calcium 8.6 Magnesium 1.3 L 07/01/19 07/02/19 07/02/19 23:35 05:30 05:30 Creatine Kinase 28 L CK-MB (CK-2) 1.04 Troponin I < 0.012 < 0.012 NT-Pro-B Natriuret Pep 1160 H 07/02/19 07/02/19 07/02/19 11:40 11:40 17:15 Creatine Kinase 28 L 37 CK-MB (CK-2) 1.68 Troponin I < 0.012 NT-Pro-B Natriuret Pep 07/02/19 17:15 Creatine Kinase CK-MB (CK-2) 3.03 Troponin I < 0.012 NT-Pro-B Natriuret Pep Impressions: Chest X-Ray 07/01/19 22:46 IMPRESSION: No definite pneumonia. Probable emphysema. Assessment and Plan - Diagnosis (1) COPD exacerbation Is this a current diagnosis for this admission?: Yes Plan: Patient was placed on BiPAP, also doxycycline twice daily and use of the BiPAP primarily at night Chest x-ray shows no pneumonia (2) Chest tightness Is this a current diagnosis for this admission?: Yes Plan: Chest tightness is related to the OPD exacerbation patient has one troponin that was normal (3) Hypoxemia requiring supplemental oxygen Is this a current diagnosis for this admission?: Yes Plan: Oxygen saturations have been between 93 and 100% either on BiPAP or nasal cannula, 3 L. Patient is feeling much better just after the 24 hour admission (4) Hypertension Is this a current diagnosis for this admission?: Yes Plan: Patient's blood pressures have been running in the low of 129/[address] up to 206/75. Average appears to be about 160/60. Medications include lisinopril 5 mg daily, Coreg 3.125 mg twice daily (5) Diabetes Qualifiers: Diabetes mellitus type: type 2 Diabetes mellitus detention insulin use: without detention use Is this a current diagnosis for this admission?: Yes Plan: Patient's blood sugars have been running between 147 and 247 patient is on metformin 500 twice daily which she takes at home - Time Time Spent with patient: 25-34 minutes
[2019-07-04] MEDS: MORPHINE SULFATE 10 MG/ML INJ IV PRN ×2 (04:10→11:18)
[2019-07-04] MEDS: HEPARIN SOD (PORCINE) 5,000 UNIT/ML 1 ML VIAL SUBCUT SCH ×3 (05:00→22:32)
[2019-07-04] MEDS: PANTOPRAZOLE SODIUM 40 MG TABLET.DR PO SCH ×2 (05:01→17:58)
[2019-07-04 05:30] LABS: ANION GAP 5 (5-19); BLOOD UREA NITROGEN 63 mg/dL (7-20); CALCIUM 8.9 mg/dL (8.4-10.2); CARBON DIOXIDE 34 mmol/L (22-30); CHLORIDE 100 mmol/L (98-107); GLUCOSE 110 mg/dL (75-110); POTASSIUM 4.3 mmol/L (3.6-5.0)
[2019-07-04 05:33] LABS: HEMATOCRIT 31.8 % (36.0-47.0); HEMOGLOBIN 10.3 g/dL (12.0-15.5); MEAN CORPUSCULAR HEMOGLOBIN 29.8 pg (27.0-33.4); MEAN CORPUSCULAR HGB CONC 32.3 g/dL (32.0-36.0); MEAN CORPUSCULAR VOLUME 92 fl (80-97); PLATELET COUNT 216 10^3/uL (150-450); RED BLOOD COUNT 3.45 10^6/uL (3.72-5.28); RED CELL DISTRIBUTION WIDTH 14.5 % (11.5-14.0); WHITE BLOOD COUNT 14.8 10^3/uL (4.0-10.5)
[2019-07-04] MEDS ORDERED: MAGNESIUM SULFATE/D5W 1 GM/100 ML RTUPB IV ONE ×2 (06:30→07:00)
[2019-07-04] MEDS: LEVALBUTEROL HCL NEB 1.25 MG/3 ML AMPUL NEB SCH ×2 (08:05→15:39)
[2019-07-04] MEDS: IPRATROPIUM BROMIDE 0.02% NEB 0.5 MG/2.5 ML AMPUL NEB SCH ×2 (08:05→15:39)
[2019-07-04] MEDS: BUDESONIDE NEB 0.5 MG/2 ML AMPUL NEB SCH ×2 (08:05→19:58)
[2019-07-04] MEDS: METFORMIN HCL 500 MG TABLET PO SCH (08:20)
[2019-07-04] MEDS: INSULIN REG, HUMAN 100 UNIT/ML 3 ML VIAL (PYX) SUBCUT SCH ×4 (08:38→22:31)
[2019-07-04] MEDS: MAGNESIUM OXIDE 400 MG TABLET PO SCH ×2 (11:17→17:59)
[2019-07-04] MEDS: LISINOPRIL 5 MG TABLET PO SCH (11:17)
[2019-07-04] MEDS: ASPIRIN 81 MG TABLET, ENT COATED PO SCH (11:17)
[2019-07-04] MEDS: GABAPENTIN 400 MG CAPSULE PO SCH ×2 (11:17→22:31)
[2019-07-04] MEDS: CARVEDILOL 3.125 MG TABLET PO SCH ×2 (11:18→22:31)
[2019-07-04] MEDS: FUROSEMIDE 20 MG TABLET PO SCH (11:18)
[2019-07-04] MEDS: DOCUSATE SODIUM 100 MG CAPSULE PO SCH ×2 (11:18→17:59)
[2019-07-04] MEDS: DOXYCYCLINE HYCLATE 100 MG TABLET PO SCH ×2 (11:19→17:58)
[2019-07-04] MEDS: NORMAL SALINE 1000 ML 1,000 ML IV PRN (18:00)
[2019-07-04] MEDS: HYDROCODONE/ACETAMINOPHEN 5-325 MG TABLET PO PRN (18:16)
--- NOTE | 2019-07-04 19:42 | Progress Note Acknowledgement ---
Progress Note Acknowledgement Progess Note Acknowledgement: I, the undersigned member of the medical staff with appropriate privileges and with supervisory authority over Linda Yun, a [facility] practice allied health professional, acknowledge that I have reviewed the progress notes entered on this patient, and in my professional judgment believe that the assessment made and/or any care evidenced was appropriate
--- NOTE | 2019-07-04 19:55 | PDOC PROGRESS REPORT ---
Subjective Progress Note for:: 07/04/19 Subjective:: Patient is a 73-year-old female with past medical history of CHF, CAD, DVT, hypertension, asthma, COPD, chronic respiratory failure, DM 2, CKD, GERD, arthritis, tobacco dependency who was admitted 07/02/2019 for acute respiratory failure with hypoxia secondary to acute on COPD exacerbation. Patient was seen on afternoon rounds. She is found resting in bed comfortably on her baseline oxygen requirement by nasal cannula. She is actually requesting to be discharged home today. She denies active chest pain, dyspnea, orthopnea, cough, abdominal pain, nausea vomiting and diarrhea. She has no questions or concerns at this time. No concerns per nursing. Reason For Visit: ACUTE RESPIRATORY FAILURE WITH HYPOXIA, ACUTE Physical Exam Vital Signs: Temp Pulse Resp BP Pulse Ox 97.5 F 55 L 19 135/56 H 100 07/04/19 15:53 07/04/19 15:53 07/04/19 15:53 07/04/19 15:53 07/04/19 15:53 Intake & Output 07/03/19 07/04/19 07/05/19 06:59 06:59 06:59 Intake Total 1371 1136 240 Output Total 1750 Balance -379 1136 240 Weight 89.3 kg 91.1 kg General appearance: PRESENT: no acute distress, cooperative, obese, well-d eveloped, well-nourished Head exam: PRESENT: atraumatic, normocephalic Eye exam: PRESENT: conjunctiva pink, EOMI, PERRLA. ABSENT: scleral icterus Ear exam: PRESENT: normal external ear exam Mouth exam: PRESENT: moist, tongue midline Neck exam: ABSENT: carotid bruit, JVD, lymphadenopathy, thyromegaly Respiratory exam: PRESENT: decreased breath sounds, prolonged expiratory phas, rhonchi, symmetrical, unlabored, other - Supplemental oxygen via nasal cannula. ABSENT: rales, wheezes Cardiovascular exam: PRESENT: RRR, +S1, +S2 - Bibasilar. ABSENT: diastolic murmur, rubs, systolic murmur Pulses: PRESENT: normal dorsalis pedis pul Vascular exam: PRESENT: normal capillary refill GI/Abdominal exam: PRESENT: normal bowel sounds, soft. ABSENT: distended, guarding, mass, organolmegaly, rebound, tenderness Rectal exam: PRESENT: deferred Extremities exam: PRESENT: full ROM. ABSENT: calf tenderness, clubbing, pedal edema Musculoskeletal exam: PRESENT: ambulatory Neurological exam: PRESENT: alert, awake, oriented to person, oriented to place, oriented to time, oriented to situation, CN II-XII grossly intact. ABSENT: motor sensory deficit Psychiatric exam: PRESENT: appropriate affect, normal mood. ABSENT: homicidal i deation, suicidal ideation Skin exam: PRESENT: dry, intact, warm. ABSENT: cyanosis, rash Results Laboratory Results: 07/04/19 04:34 07/04/19 04:34 07/04/19 07/04/19 04:34 04:34 WBC 14.8 H RBC 3.45 L Hgb 10.3 L Hct 31.8 L MCV 92 MCH 29.8 MCHC 32.3 RDW 14.5 H Plt Count 216 Sodium 138.5 Potassium 4.3 Chloride 100 Carbon Dioxide 34 H Anion Gap 5 BUN 63 H Creatinine 1.53 H Est GFR ( Amer) 40 L Est GFR (Non-Af Amer) 33 L Glucose 110 Calcium 8.9 Magnesium 1.2 L* 07/01/19 07/02/19 07/02/19 23:35 05:30 05:30 Creatine Kinase 28 L CK-MB (CK-2) 1.04 Troponin I < 0.012 < 0.012 NT-Pro-B Natriuret Pep 1160 H 07/02/19 07/02/19 07/02/19 11:40 11:40 17:15 Creatine Kinase 28 L 37 CK-MB (CK-2) 1.68 Troponin I < 0.012 NT-Pro-B Natriuret Pep 07/02/19 17:15 Creatine Kinase CK-MB (CK-2) 3.03 Troponin I < 0.012 NT-Pro-B Natriuret Pep Impressions: Chest X-Ray 07/01/19 22:46 IMPRESSION: No definite pneumonia. Probable emphysema. Assessment and Plan - Diagnosis (1) Acute and chronic respiratory failure with hypoxia Is this a current diagnosis for this admission?: Yes Plan: Improved; now maintaining oxygen saturations on her baseline oxygen requirement. Patient presents to the emergency department for acute COPD exacerbation; found to have SPO2 in the mid 70s on her baseline oxygen requirement. She is been admitted to the medical floor and continuous cardiac telemetry. Continue supplemental oxygen and BiPAP as needed to maintain saturations. Continue scheduled and as needed nebulizer treatments. Mucinex twice daily. Pulmonary toilet with incentive spirometer and flutter valve. (2) Acute exacerbation of chronic obstructive pulmonary disease (COPD) Is this a current diagnosis for this admission?: Yes Plan: Supplemental oxygen and BiPAP as needed. Scheduled and as needed nebulizer treatments. Doxycycline for COPD exacerbation with increased sputum production. Mucinex twice daily. Singulair nightly Incentive spirometer and flutter valve to bedside. Palliative care consultation. (3) ANASTASIA (acute kidney injury) Is this a current diagnosis for this admission?: Yes Plan: Creatinine 1.53; up from 1.29 at admission and baseline of 1.17. BUN is also elevated to 63 today, up from 25. Likely secondary to p.o. furosemide for treatment of mild CHF exacerbation; will place on hold today. Gentle IV fluids overnight. Avoid nephrotoxic medications as able. Daily chemistries. (4) CAD (coronary artery disease) Qualifiers: Coronary Disease-Associated Artery/Lesion type: [place] artery [place] vs. transplanted heart: [place] heart Associated angina: with unspecified angina Qualified Code(s): I25.119 - Atherosclerotic heart disease of [place] coronary artery with unspecified angina pectoris Is this a current diagnosis for this admission?: Yes Plan: Without chest discomfort at this time. Negative troponin on admission. Continue daily aspirin and atorvastatin therapy. Continue home antihypertensive therapies. (5) CKD (chronic kidney disease) stage 3, GFR 30-59 ml/min Is this a current diagnosis for this admission?: Yes Plan: Avoid nephrotoxic medications as able. Daily chemistries. (6) Chronic diastolic CHF (congestive heart failure) Is this a current diagnosis for this admission?: Yes Plan: Continue daily aspirin and statin therapy. Continue low-dose carvedilol and lisinopril. Furosemide temporary on hold secondary to acute on chronic kidney injury Cardiac diet. Daily weights and strict I&O's. 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 Consistent carb/cardiac diet Accu-Cheks before meals and at bedtime with Humalog for sliding scale coverage. (8) Hypomagnesemia Is this a current diagnosis for this admission?: Yes Plan: Magnesium 1.2 today. Received IV and oral replacement. We will check repeat lab with a.m. lab work. (9) Tobacco dependence Is this a current diagnosis for this admission?: Yes Plan: Smoking cessation strongly encouraged. Nicotine replacement therapies offered. (10) HTN (hypertension) Qualifiers: Hypertension type: essential hypertension Qualified Code(s): I10 - Essential (primary) hypertension Is this a current diagnosis for this admission?: Yes Plan: Acceptable blood pressures on her home medication regiment. - Time Time Spent with patient: 15-24 minutes Medications reviewed and adjusted accordingly: Yes Anticipated discharge: Home Within: within 48 hours
[2019-07-04] MEDS: ATORVASTATIN CALCIUM 10 MG TABLET PO SCH (22:31)
[2019-07-05] MEDS: HYDROCODONE/ACETAMINOPHEN 5-325 MG TABLET PO PRN ×2 (00:13→15:28)
[2019-07-05] MEDS: LEVALBUTEROL HCL NEB 1.25 MG/3 ML AMPUL NEB SCH ×4 (00:34→20:01)
[2019-07-05] MEDS: IPRATROPIUM BROMIDE 0.02% NEB 0.5 MG/2.5 ML AMPUL NEB SCH ×4 (00:34→20:01)
[2019-07-05] MEDS: NORMAL SALINE 1000 ML 1,000 ML IV PRN ×2 (03:17→13:17)
[2019-07-05] MEDS: HEPARIN SOD (PORCINE) 5,000 UNIT/ML 1 ML VIAL SUBCUT SCH ×3 (05:13→21:28)
[2019-07-05] MEDS: PANTOPRAZOLE SODIUM 40 MG TABLET.DR PO SCH ×2 (05:13→17:34)
[2019-07-05 05:52] LABS: HEMATOCRIT 31.9 % (36.0-47.0); HEMOGLOBIN 10.5 g/dL (12.0-15.5); MEAN CORPUSCULAR HEMOGLOBIN 30.6 pg (27.0-33.4); MEAN CORPUSCULAR HGB CONC 32.8 g/dL (32.0-36.0); MEAN CORPUSCULAR VOLUME 93 fl (80-97); PLATELET COUNT 214 10^3/uL (150-450); RED BLOOD COUNT 3.42 10^6/uL (3.72-5.28); RED CELL DISTRIBUTION WIDTH 14.9 % (11.5-14.0); WHITE BLOOD COUNT 11.9 10^3/uL (4.0-10.5)
[2019-07-05 06:14] LABS: BLOOD UREA NITROGEN 59 mg/dL (7-20); GLUCOSE 111 mg/dL (75-110); POTASSIUM 4.9 mmol/L (3.6-5.0)
[2019-07-05 06:19] LABS: CARBON DIOXIDE 34 mmol/L (22-30); CHLORIDE 99 mmol/L (98-107)
[2019-07-05 06:22] LABS: ANION GAP 4 (5-19)
[2019-07-05] MEDS: BUDESONIDE NEB 0.5 MG/2 ML AMPUL NEB SCH ×2 (07:55→20:00)
[2019-07-05] MEDS: DOXYCYCLINE HYCLATE 100 MG TABLET PO SCH ×2 (08:27→17:34)
[2019-07-05] MEDS: INSULIN REG, HUMAN 100 UNIT/ML 3 ML VIAL (PYX) SUBCUT SCH ×4 (08:29→21:28)
[2019-07-05] MEDS: CARVEDILOL 3.125 MG TABLET PO SCH ×2 (10:57→21:23)
[2019-07-05] MEDS: LISINOPRIL 5 MG TABLET PO SCH (10:57)
[2019-07-05] MEDS: ASPIRIN 81 MG TABLET, ENT COATED PO SCH (10:57)
[2019-07-05] MEDS: DOCUSATE SODIUM 100 MG CAPSULE PO SCH ×2 (10:57→17:34)
[2019-07-05] MEDS: FUROSEMIDE 20 MG TABLET PO SCH (10:57)
[2019-07-05] MEDS: MAGNESIUM OXIDE 400 MG TABLET PO SCH ×2 (10:57→17:35)
[2019-07-05] MEDS: GABAPENTIN 400 MG CAPSULE PO SCH ×2 (10:58→21:23)
--- NOTE | 2019-07-05 17:46 | ADVANCED CARE ---
- Diagnosis (1) Acute and chronic respiratory failure with hypoxia Diagnosis Current: Yes (2) Acute exacerbation of chronic obstructive pulmonary disease (COPD) Diagnosis Current: Yes (3) ANASTASIA (acute kidney injury) Diagnosis Current: No (4) CAD (coronary artery disease) Diagnosis Current: Yes (5) CKD (chronic kidney disease) stage 3, GFR 30-59 ml/min Diagnosis Current: Yes (6) Chronic diastolic CHF (congestive heart failure) Diagnosis Current: Yes (7) Diabetes Diagnosis Current: Yes (8) Hypomagnesemia Diagnosis Current: No (9) Tobacco dependence Diagnosis Current: No (10) HTN (hypertension) Diagnosis Current: Yes Attendance: Patient, Janett Man. Resuscitation Status: Full Code Discussion: Discussed the patient's chronic, comorbidities, medical conditions and frequent readmissions to our facility related to COPD and CHF exacerbations resulting in acute on chronic respiratory failure with hypoxia. The patient is home O2 dependent at baseline and utilizes CPAP machine nightly. Discussed with patient the differences between palliative care and hospice services. The patient confirmed that she is a FULL CODE. She expresses that her goal is to discharge to home where she lives with her . She is not interested in home health services. She is initially interested in meeting with the palliative care team for information gathering, however, then declines to meet with them later in the day. Care Planning Goals: FULL CODE w/ aggressive interventions including intubation if clinically indicated. Time Spent: 16 min
--- NOTE | 2019-07-05 17:55 | PDOC PROGRESS REPORT ---
Subjective Progress Note for:: 07/05/19 Subjective:: Patient is a 73-year-old female with past medical history of CHF, CAD, DVT, hypertension, asthma, COPD, chronic respiratory failure, DM 2, CKD, GERD, arthritis, tobacco dependency who was admitted 07/02/2019 for acute respiratory failure with hypoxia secondary to acute on COPD exacerbation. Patient was seen on afternoon rounds. She is found resting in bed comfortably on her baseline oxygen requirement by nasal cannula. She reports that she is feeling fatigued today, but otherwise has no new complaints. She denies fever, chills, chest pain, dyspnea, orthopnea, cough, abdominal pain, nausea vomiting and diarrhea. She has no questions or concerns at this time. Hopeful to d/c home tomorrow. No concerns per nursing. Reason For Visit: ACUTE RESPIRATORY FAILURE WITH HYPOXIA, ACUTE Physical Exam Vital Signs: Temp Pulse Resp BP Pulse Ox 97.8 F 70 18 156/76 H 94 07/05/19 11:46 07/05/19 15:29 07/05/19 15:29 07/05/19 11:46 07/05/19 15:29 Intake & Output 07/04/19 07/05/19 07/06/19 06:59 06:59 06:59 Intake Total 1136 1602 1000 Balance 1136 1602 1000 Weight 91.1 kg 91 kg General appearance: PRESENT: no acute distress, cooperative, obese, well- developed, well-nourished Head exam: PRESENT: atraumatic, normocephalic Eye exam: PRESENT: conjunctiva pink, EOMI, PERRLA. ABSENT: scleral icterus Mouth exam: PRESENT: moist, tongue midline Teeth exam: PRESENT: poor dentation Neck exam: ABSENT: carotid bruit, JVD, lymphadenopathy, thyromegaly Respiratory exam: PRESENT: clear to auscultation chago, prolonged expiratory phas, symmetrical, unlabored, other - Baseline oxygen requirement. ABSENT: rales, rhonchi, wheezes Cardiovascular exam: PRESENT: RRR. ABSENT: diastolic murmur, rubs, systolic murmur Pulses: PRESENT: normal dorsalis pedis pul Vascular exam: PRESENT: normal capillary refill GI/Abdominal exam: PRESENT: normal bowel sounds, soft. ABSENT: distended, guarding, mass, organolmegaly, rebound, tenderness Rectal exam: PRESENT: deferred Extremities exam: PRESENT: full ROM. ABSENT: calf tenderness, clubbing, pedal edema Musculoskeletal exam: PRESENT: ambulatory Neurological exam: PRESENT: alert, awake, oriented to person, oriented to place, oriented to time, oriented to situation, CN II-XII grossly intact. ABSENT: motor sensory deficit Psychiatric exam: PRESENT: appropriate affect, normal mood. ABSENT: homicidal ideation, suicidal ideation Skin exam: PRESENT: dry, intact, warm. ABSENT: cyanosis, rash Results Laboratory Results: 07/05/19 05:06 07/05/19 05:06 07/05/19 07/05/19 05:06 05:06 WBC 11.9 H RBC 3.42 L Hgb 10.5 L Hct 31.9 L MCV 93 MCH 30.6 MCHC 32.8 RDW 14.9 H Plt Count 214 Sodium 137.4 Potassium 4.9 Chloride 99 Carbon Dioxide 34 H Anion Gap 4 L BUN 59 H Creatinine 1.47 H Est GFR ( Amer) 42 L Est GFR (Non-Af Amer) 35 L Glucose 111 H Calcium 9.0 Magnesium 1.6 07/01/19 07/02/19 07/02/19 23:35 05:30 05:30 Creatine Kinase 28 L CK-MB (CK-2) 1.04 Troponin I < 0.012 < 0.012 NT-Pro-B Natriuret Pep 1160 H 07/02/19 07/02/19 07/02/19 11:40 11:40 17:15 Creatine Kinase 28 L 37 CK-MB (CK-2) 1.68 Troponin I < 0.012 NT-Pro-B Natriuret Pep 07/02/19 17:15 Creatine Kinase CK-MB (CK-2) 3.03 Troponin I < 0.012 NT-Pro-B Natriuret Pep Impressions: Chest X-Ray 07/01/19 22:46 IMPRESSION: No definite pneumonia. Probable emphysema. Assessment and Plan - Diagnosis (1) Acute and chronic respiratory failure with hypoxia Is this a current diagnosis for this admission?: Yes Plan: Acute exacerbation has resolved; now maintaining oxygen saturations on her baseline oxygen requirement. Patient presented to the emergency department for acute COPD exacerbation; found to have SPO2 in the mid 70s on her baseline oxygen requirement. She has been admitted to the medical floor and continuous cardiac telemetry. Continue supplemental oxygen and BiPAP as needed to maintain saturations. Continue scheduled and as needed nebulizer treatments. Mucinex twice daily. Pulmonary toilet with incentive spirometer and flutter valve. (2) Acute exacerbation of chronic obstructive pulmonary disease (COPD) Is this a current diagnosis for this admission?: Yes Plan: Supplemental oxygen and BiPAP as needed. Scheduled and as needed nebulizer treatments. Doxycycline for COPD exacerbation with increased sputum production. Mucinex twice daily. Singulair nightly Incentive spirometer and flutter valve to bedside. (3) ANASTASIA (acute kidney injury) Is this a current diagnosis for this admission?: Yes Plan: Slight improvement with IV fluids. Creatinine 1.29-> 1.53-> 1.47; baseline of 1.17. Likely secondary to p.o. furosemide for treatment of mild CHF exacerbation; furosemide on hold Gentle IV fluids overnight. Avoid nephrotoxic medications as able. Daily chemistries. (4) CAD (coronary artery disease) Qualifiers: Coronary Disease-Associated Artery/Lesion type: [place] artery [place] vs. transplanted heart: [place] heart Associated angina: with unspecified angina Qualified Code(s): I25.119 - Atherosclerotic heart disease of [place] coronary artery with unspecified angina pectoris Is this a current diagnosis for this admission?: Yes Plan: Without chest discomfort at this time. Negative troponin on admission. Continue daily aspirin and atorvastatin therapy. Continue home antihypertensive therapies. (5) CKD (chronic kidney disease) stage 3, GFR 30-59 ml/min Is this a current diagnosis for this admission?: Yes Plan: Avoid nephrotoxic medications as able. Daily chemistries. (6) Chronic diastolic CHF (congestive heart failure) Is this a current diagnosis for this admission?: Yes Plan: Continue daily aspirin and statin therapy. Continue low-dose carvedilol and lisinopril. Furosemide temporary on hold secondary to acute on chronic kidney injury. Re ceiving IVF; monitor closely for overload. Cardiac diet. Daily weights and strict I&O's. (7) Diabetes Qualifiers: Diabetes mellitus type: type 2 Diabetes mellitus emt intermediate insulin use: without emt intermediate use Is this a current diagnosis for this admission?: Yes Plan: A1c (06/14/2019) 6.1% Metformin placed on hold while admitted. Consistent carb/cardiac diet Accu-Cheks before meals and at bedtime with Humalog for sliding scale coverage. (8) Hypomagnesemia Is this a current diagnosis for this admission?: Yes Plan: Replete (9) Tobacco dependence Is this a current diagnosis for this admission?: Yes Plan: Smoking cessation strongly encouraged. Nicotine replacement therapies offered. (10) HTN (hypertension) Qualifiers: Hypertension type: essential hypertension Qualified Code(s): I10 - Essential (primary) hypertension Is this a current diagnosis for this admission?: Yes Plan: Acceptable blood pressures on her home medication regiment. - Time Time Spent with patient: 15-24 minutes Medications reviewed and adjusted accordingly: Yes Anticipated discharge: Home Within: within 24 hours
[2019-07-05] MEDS: ATORVASTATIN CALCIUM 10 MG TABLET PO SCH (21:23)
[2019-07-06] MEDS: HYDROCODONE/ACETAMINOPHEN 5-325 MG TABLET PO PRN (03:28)
[2019-07-06 04:32] LABS: HEMATOCRIT 28.6 % (36.0-47.0); HEMOGLOBIN 9.3 g/dL (12.0-15.5); MEAN CORPUSCULAR HEMOGLOBIN 30.3 pg (27.0-33.4); MEAN CORPUSCULAR HGB CONC 32.7 g/dL (32.0-36.0); MEAN CORPUSCULAR VOLUME 93 fl (80-97); PLATELET COUNT 202 10^3/uL (150-450); RED BLOOD COUNT 3.08 10^6/uL (3.72-5.28); RED CELL DISTRIBUTION WIDTH 14.9 % (11.5-14.0); WHITE BLOOD COUNT 11.5 10^3/uL (4.0-10.5)
[2019-07-06 04:51] LABS: BLOOD UREA NITROGEN 43 mg/dL (7-20); CALCIUM 8.5 mg/dL (8.4-10.2); CHLORIDE 102 mmol/L (98-107); GLUCOSE 154 mg/dL (75-110); POTASSIUM 4.7 mmol/L (3.6-5.0)
[2019-07-06 04:57] LABS: CARBON DIOXIDE 33 mmol/L (22-30)
[2019-07-06] MEDS: PANTOPRAZOLE SODIUM 40 MG TABLET.DR PO SCH (05:03)
[2019-07-06] MEDS: HEPARIN SOD (PORCINE) 5,000 UNIT/ML 1 ML VIAL SUBCUT SCH (05:03)
[2019-07-06 05:04] LABS: ANION GAP 4 (5-19)
[2019-07-06] MEDS: LEVALBUTEROL HCL NEB 1.25 MG/3 ML AMPUL NEB SCH (08:32)
[2019-07-06] MEDS: IPRATROPIUM BROMIDE 0.02% NEB 0.5 MG/2.5 ML AMPUL NEB SCH (08:32)
[2019-07-06] MEDS: BUDESONIDE NEB 0.5 MG/2 ML AMPUL NEB SCH (08:32)
[2019-07-06] MEDS: INSULIN REG, HUMAN 100 UNIT/ML 3 ML VIAL (PYX) SUBCUT SCH ×2 (09:10→12:08)
[2019-07-06] MEDS: FUROSEMIDE 20 MG TABLET PO SCH (09:30)
[2019-07-06] MEDS: GABAPENTIN 400 MG CAPSULE PO SCH (09:30)
[2019-07-06] MEDS: MAGNESIUM OXIDE 400 MG TABLET PO SCH (09:30)
[2019-07-06] MEDS: DOCUSATE SODIUM 100 MG CAPSULE PO SCH (09:30)
[2019-07-06] MEDS: CARVEDILOL 3.125 MG TABLET PO SCH (09:31)
[2019-07-06] MEDS: LISINOPRIL 5 MG TABLET PO SCH (09:31)
[2019-07-06] MEDS: DOXYCYCLINE HYCLATE 100 MG TABLET PO SCH (09:31)
[2019-07-06] MEDS: ASPIRIN 81 MG TABLET, ENT COATED PO SCH (09:31)
[2019-07-06 15:12] VITALS: BP 132/58
--- NOTE | 2019-07-10 18:55 | PDOC DISCHARGE SUMMARY ---
General - Admit/Disc Date/PCP Admission Date/Primary Care Provider: 07/02/19 02:43 WILMAR BENSON, DEONTE-Shon Discharge Date: 07/06/19 - Discharge Diagnosis (1) Acute and chronic respiratory failure with hypoxia Is this a current diagnosis for this admission?: Yes Summary: Acute exacerbation has resolved; now maintaining oxygen saturations on her baseline oxygen requirement. Patient presented to the emergency department for acute COPD exacerbation; found to have SPO2 in the mid 70s on her baseline oxygen requirement. She was been admitted to the medical floor and continuous cardiac telemetry. She was provided supplemental oxygen and BiPAP as needed to maintain saturations scheduled and as needed nebulizer treatments, Mucinex twice daily, and pulmonary toilet with incentive spirometer and flutter valve. (2) Acute exacerbation of chronic obstructive pulmonary disease (COPD) Is this a current diagnosis for this admission?: Yes Summary: Acute exacerbation has resolved. She is empirically placed on doxycycline for COPD exacerbation with increased sputum production. She is discharged home with a prescription to complete full course of antibiotic therapy. She was further supported with scheduled and as needed nebulizer treatments, Mucinex twice daily, and nightly Singulair. She did not require steroid therapy. (3) ANASTASIA (acute kidney injury) Is this a current diagnosis for this admission?: Yes Summary: Resolved; likely secondary to furosemide use for treatment of mild CHF exacerbation. (4) CAD (coronary artery disease) Is this a current diagnosis for this admission?: Yes Summary: Without chest discomfort at this time. Negative troponin on admission. Continue outpatient aspirin, statin, and antihypertensive regiment. (5) CKD (chronic kidney disease) stage 3, GFR 30-59 ml/min Is this a current diagnosis for this admission?: Yes Summary: Stable; acute worsening of CKD has resolved. (6) Chronic diastolic CHF (congestive heart failure) Is this a current diagnosis for this admission?: Yes Summary: Acute exacerbation has resolved. The patient received a brief increased p.o. furosemide dosing. The patient's aspirin, statin, carvedilol, and lisinopril therapy were continued while admitted. She is instructed to resume her home dose furosemide on discharge. She is advised of the importance of a cardiac diet and instructed on daily weights; notify provider of weight gain of more than 2 pounds overnight. (7) Diabetes Is this a current diagnosis for this admission?: Yes Summary: A1c (06/14/2019) 6.1% Resume home dose metformin on discharge. (8) Hypomagnesemia Is this a current diagnosis for this admission?: Yes Summary: Replete (9) Tobacco dependence Is this a current diagnosis for this admission?: Yes Summary: Smoking cessation was strongly encouraged. (10) HTN (hypertension) Is this a current diagnosis for this admission?: Yes Summary: Acceptable blood pressures on her home medication regiment. - Additional Information Resuscitation Status: Full Code Discharge Diet: Cardiac, Diabetic Discharge Activity: Activity As Tolerated, Balance Activity w/Rest, Weigh Daily Prescriptions: Carvedilol [Coreg 3.125 mg Tablet] 3.125 mg PO Q12 #60 tablet Doxycycline Hyclate [Vibramycin 100 mg Tablet] 100 mg PO BIDPCBS #12 tablet Home Medications: Albuterol Sulfate [Proair HFA Inhalation Aerosol 8.5 gm MDI] 2 puff IH Q4HP PRN 05/08/19 Aspirin [Adult Low Dose Aspirin EC] 81 mg PO DAILY 05/08/19 Atorvastatin Calcium [Lipitor 10 mg Tablet] 10 mg PO QHS 05/08/19 Gabapentin [Neurontin 400 mg Capsule] 400 mg PO Q12 05/08/19 Hydrocodone/Acetaminophen [[place] 5-325 mg Tablet] 1 tab PO Q12HP PRN 05/08/19 Lisinopril [Zestril] 5 mg PO DAILY 05/08/19 Metformin HCl [Glucophage 500 mg Tablet] 500 mg PO BID 05/08/19 Cetirizine HCl [Zyrtec 10 mg Tablet] 10 mg PO DAILY 06/14/19 Fluticasone/Umeclidin/Vilanter [Trelegy 100-62.5-25 Mcg Ellipta 14 Dose/Dpi] 1 each IH DAILY 30 Days #1 inhaler 06/15/19 Furosemide [Lasix 20 mg Tablet] 20 mg PO QAM 30 Days #30 tablet 06/15/19 Acetaminophen [Tylenol 325 mg Tablet] 650 mg PO Q6HP PRN tablet 07/06/19 Aspirin [Ecotrin 81 mg EC Tablet] 81 mg PO DAILY tabec 07/06/19 Carvedilol [Coreg 3.125 mg Tablet] 3.125 mg PO Q12 #60 tablet 07/06/19 Doxycycline Hyclate [Vibramycin 100 mg Tablet] 100 mg PO BIDPCBS #12 tablet 07/06/19 Furosemide [Lasix 20 mg Tablet] 20 mg PO DAILY tablet 07/06/19 Gabapentin [Neurontin 400 mg Capsule] 400 mg PO Q12 capsule 07/06/19 Lisinopril [Prinivil 5 mg Tablet] 5 mg PO DAILY tablet 07/06/19 History of Present Illness History of Present Illness: Per H&P by Dr. Ruiz: GAVI PEDRO is a 73 year old female who presented to the emergency room with a 2-hour history of dyspnea. Patient admits to the abrupt onset of dyspnea approximately 2 hours prior to her arrival in the emergency room while she was resting in her recliner watching television. She explains that she suddenly felt severely short of breath, got up from the chair, used her home nebulizers along with her home oxygen and when this did not improve her breathing she decided to come to the emergency room. Her dyspnea was made worse by exertion. She admits that her dyspnea has been associated with her chronic productive cough and has been accompanied by wheezing, a sensation of tightness in her chest worse with inspiration and a sensation of tightness/swelling all over her body. She denies other accompanying or associated symptoms. She admits numerous prior similar episodes related to her COPD and congestive heart failure. He has not identified any additional aggravating or ameliorating fact ors for her dyspnea. In the emergency room she was found to have hypoxia with an O2 sat of 70% on her arrival. Her chest x-ray showed no acute pulmonary or cardiac process. Her laboratory values including an EKG and cardiac enzymes showed no evidence of acute disease and were within her usual baseline range of values. She was treated with BiPAP, nebulizer therapy and Solu-Medrol with an excellent response. She was however unable to return to her usual oxygen at 3 L/min via nasal cannula and sustain any mild exertion without significant desaturation. She was subsequently admitted to the hospital for further evaluation and treatment. Physical Exam Vital Signs: Temp Pulse Resp BP Pulse Ox 97.8 F 73 16 132/58 H 94 07/06/19 14:59 07/06/19 14:59 07/06/19 14:59 07/06/19 14:59 07/06/19 14:59 General appearance: PRESENT: no acute distress, cooperative, disheveled, obese, well-developed, well-nourished Head exam: PRESENT: atraumatic, normocephalic Eye exam: PRESENT: conjunctiva pink, EOMI, PERRLA. ABSENT: scleral icterus Ear exam: PRESENT: normal external ear exam Mouth exam: PRESENT: moist, tongue midline Teeth exam: PRESENT: poor dentation Neck exam: ABSENT: carotid bruit, JVD, lymphadenopathy, thyromegaly Respiratory exam: PRESENT: clear to auscultation chago, prolonged expiratory phas, symmetrical, unlabored, other - Baseline oxygen requirement. ABSENT: rales, rhonchi, wheezes Cardiovascular exam: PRESENT: RRR. ABSENT: diastolic murmur, rubs, systolic murmur Pulses: PRESENT: normal dorsalis pedis pul Vascular exam: PRESENT: normal capillary refill GI/Abdominal exam: PRESENT: normal bowel sounds, soft. ABSENT: distended, guarding, mass, organolmegaly, rebound, tenderness Rectal exam: PRESENT: deferred Extremities exam: PRESENT: full ROM. ABSENT: calf tenderness, clubbing, pedal edema Musculoskeletal exam: PRESENT: ambulatory Neurological exam: PRESENT: alert, awake, oriented to person, oriented to place, oriented to time, oriented to situation, CN II-XII grossly intact. ABSENT: motor sensory deficit Psychiatric exam: PRESENT: appropriate affect, normal mood. ABSENT: homicidal ideation, suicidal ideation Skin exam: PRESENT: dry, intact, warm. ABSENT: cyanosis, rash Results Laboratory Results: 07/06/19 04:01 07/06/19 04:01 07/01/19 07/02/19 07/02/19 23:35 05:30 05:30 Creatine Kinase 28 L CK-MB (CK-2) 1.04 Troponin I < 0.012 < 0.012 NT-Pro-B Natriuret Pep 1160 H 07/02/19 07/02/19 07/02/19 11:40 11:40 17:15 Creatine Kinase 28 L 37 CK-MB (CK-2) 1.68 Troponin I < 0.012 NT-Pro-B Natriuret Pep 07/02/19 17:15 Creatine Kinase CK-MB (CK-2) 3.03 Troponin I < 0.012 NT-Pro-B Natriuret Pep Impressions: Chest X-Ray 07/01/19 22:46 IMPRESSION: No definite pneumonia. Probable emphysema. Qualifiers - * PATIENT BEING DISCHARGED WITH ANY OF THE FOLLOWING DIAGNOSIS: No Acute Heart Failure - Is this a Heart Failure Patient?: No Plan Discharge Plan: The patient is discharged home with self-care. She declined home health and palliative care services. She is advised to take her medications as prescribed. She is instructed on the importance of a diabetic/low-salt diet. She is instructed to follow-up with her primary care provider within 1 week and to return to the emergency department as needed for concerning symptoms. Time Spent: Greater than 30 Minutes
== END 2019-07-06 15:45 | disposition home health service (06) | DRG 189 ==
LOC: ER 22:42 → EH 07-02 02:43 → 5 07-02 04:25
PROVIDERS: ADMIT Emergency Medicine; ATTEND Emergency Medicine
PROC: 5A09557 Assistance with Respiratory Ventilation, Greater than 96 Consecutive Hours, Continuous Positive Airway Pressure (ICD-10-PCS; principal; 2019-07-01)
DX: J96.21 Acute and chronic respiratory failure with hypoxia (principal); I50.33 Acute on chronic diastolic (congestive) heart failure; J44.1 Chronic obstructive pulmonary disease with (acute) exacerbation; N17.9 Acute kidney failure, unspecified; I13.0 Hypertensive heart and chronic kidney disease with heart failure and stage 1 through stage 4 chronic kidney disease, or unspecified chronic kidney disease; N18.3 Chronic kidney disease, stage 3 (moderate); E11.22 Type 2 diabetes mellitus with diabetic chronic kidney disease; E83.42 Hypomagnesemia; K21.9 Gastro-esophageal reflux disease without esophagitis; E66.9 Obesity, unspecified; E03.9 Hypothyroidism, unspecified; E78.5 Hyperlipidemia, unspecified; I25.119 Atherosclerotic heart disease of native coronary artery with unspecified angina pectoris; F17.210 Nicotine dependence, cigarettes, uncomplicated; D63.1 Anemia in chronic kidney disease; T50.1X5A Adverse effect of loop [high-ceiling] diuretics, initial encounter; Z99.81 Dependence on supplemental oxygen; Z88.8 Allergy status to other drugs, medicaments and biological substances; Z79.899 Other long term (current) drug therapy; Z79.82 Long term (current) use of aspirin; Z79.84 Long term (current) use of oral hypoglycemic drugs; Z86.718 Personal history of other venous thrombosis and embolism; Z82.49 Family history of ischemic heart disease and other diseases of the circulatory system; Z83.3 Family history of diabetes mellitus
CPT/HCPCS: 36415; 71045; 80048; 80053; 82550; 82553; 82803; 82962; 83605; 83735; 83880; 84484; 85025; 85027; 93005; 93010; 94640; 94660; 96365; 96375; 99285; J0360; J1815; J2270; J2405; J2920; J2930; J3475; J3490; J7030; J7620

== ENCOUNTER 2019-07-25 23:22 | Emergency (ER) | payer MEDICARE ==
--- NOTE | 2019-07-26 00:13 | ER Document Report ---
ED General - General Chief Complaint: Shortness Of Breath Stated Complaint: SHORTNESS OF BREATH/CHEST PAIN Time Seen by Provider: 07/25/19 23:55 Primary Care Provider: WILMAR BENSON FNP-C [Primary Care Provider] - Follow up as needed TRAVEL OUTSIDE OF THE [place] IN LAST 30 DAYS: No - HPI Notes: Patient complains of dizziness and weakness going on for past 1 week. She states it is become worse over the last couple of days. She states today she almost fell. No syncope. She denies any pain. She has felt short of breath. Symptoms are worse with exertion and better with rest. No known radiation of the symptoms. Symptoms have been moderate and intermittent. No recent fevers. No vomiting or nausea. She has had some diarrhea. - Related Data Allergies/Adverse Reactions: ibuprofen [From Motrin] Allergy (Intermediate, Verified 07/01/19 22:47) RASH/UTICARTIA Past Medical History - General Information source: Patient - Social History Smoking Status: Former Smoker Frequency of alcohol use: None Drug Abuse: None Family History: CAD, COPD, DM, Hypertension, Malignancy - Past Medical History Cardiac Medical History: Reports: Hx Congestive Heart Failure, Hx Coronary Artery Disease, Hx DVT, Hx Hypertension Denies: Hx Atrial Fibrillation, Hx Heart Attack, Hx Heart Murmur Pulmonary Medical History: Reports: Hx Asthma, Hx COPD, Hx Pneumonia Denies: Hx Bronchitis, Hx Respiratory Failure, Hx Sleep Apnea, Hx Tuberculosis Neurological Medical History: Denies: Hx Cerebrovascular Accident, Hx Seizures Endocrine Medical History: Reports: Hx Diabetes Mellitus Type 2. Denies: Hx Diabetes Mellitus Type 1, Hx Hyperthyroidism, Hx Hypothyroidism Renal/ Medical History: Reports: Hx Renal Insufficiency. Denies: Hx Peritoneal Dialysis GI Medical History: Reports: Hx Diverticulitis, Hx Gastroesophageal Reflux Disease. Denies: Hx Cirrhosis, Hx Crohn's Disease, Hx Hepatitis, Hx Hiatal Hernia, Hx Pancreatitis, Hx Ulcer - ?, Hx Ulcerative Colitis Musculoskeletal Medical History: Reports Hx Arthritis, Denies Hx Gout, Denies Hx Systemic Lupus Erythematosus Skin Medical History: Denies Hx Eczema, Denies Hx Psoriasis Psychiatric Medical History: Denies: Hx Depression Traumatic Medical History: Reports: Hx Fractures - several broken ribs Infectious Medical History: Denies: Hx Hepatitis Past Surgical History: Reports: Hx Appendectomy, Hx Cholecystectomy, Hx Herniorrhaphy, Hx Hysterectomy, Hx Orthopedic Surgery - rotator cuff. Denies: Hx Mastectomy, Hx Open Heart Surgery, Hx Pacemaker - Immunizations Immunizations up to date: Yes Hx Diphtheria, Pertussis, Tetanus Vaccination: No Hx Pneumococcal Vaccination: 08/30/14 Review of Systems - Review of Systems Constitutional: Malaise, Weakness Cardiovascular: denies: Chest pain, Palpitations Respiratory: Cough, Short of breath Gastrointestinal: Diarrhea. denies: Abdominal pain, Vomiting -: Yes All other systems reviewed and negative Physical Exam - Vital signs Vitals: Temp Pulse Resp BP Pulse Ox 97.5 F 69 24 H 132/57 H 91 L 07/25/19 23:28 07/25/19 23:28 07/25/19 23:28 07/25/19 23:28 07/25/19 23:28 Interpretation: Normal - General General appearance: Appears well, Alert - HEENT Head: Normocephalic, Atraumatic Eyes: Normal Pupils: PERRL - Respiratory Respiratory status: No respiratory distress Chest status: Nontender Breath sounds: Decreased air movement - Bilateral Chest palpation: Normal - Cardiovascular Rhythm: Regular Heart sounds: Normal auscultation Murmur: No - Abdominal Inspection: Normal Distension: No distension Bowel sounds: Normal Tenderness: Nontender Organomegaly: No organomegaly - Back Back: Normal, Nontender - Extremities General upper extremity: Normal inspection, Nontender, Normal color, Normal ROM, Normal temperature General lower extremity: Normal inspection, Nontender, Normal color, Normal ROM, Normal temperature, Normal weight bearing. No: Mateus's sign - Neurological Neuro grossly intact: Yes Cognition: Normal Orientation: AAOx4 [place] Coma Scale Eye Opening: Spontaneous [place] Coma Scale Verbal: Oriented [place] Coma Scale Motor: Obeys Commands [place] Coma Scale Total: 15 Speech: Normal Motor strength normal: LUE, RUE, LLE, RLE Sensory: Normal - Psychological Associated symptoms: Normal affect, Normal mood - Skin Skin Temperature: Warm Skin Moisture: Dry Skin Color: Normal Course - Re-evaluation Re-evalutation: 07/26/19 03:26 Patient rechecked just now. She is lying comfortably in the bed. She is completely recumbent and in no respiratory distress. Vital signs are unremarkable. She has no labored breathing. Patient's chest x-ray was also unremarkable. Laboratory shows a mild increase of the white count but no other significant abnormalities. It appears the patient may have an exacerbation of her COPD. Due to her diabetes I cannot use steroids. I will give her antibiotics and have her follow-up with her primary care physician - Vital Signs Vital signs: Temp Pulse Resp BP Pulse Ox 98.1 F 69 15 124/49 L 96 07/26/19 00:09 07/25/19 23:28 07/26/19 03:01 07/26/19 03:01 07/26/19 03:01 - Laboratory Result Diagrams: 07/26/19 02:18 07/26/19 02:18 Laboratory results interpreted by me: 07/26/19 07/26/19 07/26/19 02:18 02:18 03:00 WBC 11.0 H RBC 3.26 L Hgb 10.0 L Hct 30.4 L RDW 14.8 H BUN 29 H Creatinine 1.41 H Est GFR ( Amer) 44 L Est GFR (MDRD) Non-Af 37 L Calcium 8.0 L Total Protein 6.0 L Albumin 3.3 L Urine Urobilinogen 2.0 H Ur Leukocyte Esterase TRACE H - EKG Interpretation by Me EKG shows normal: Sinus rhythm Rate: Normal - 68 Rhythm: NSR Cropsey/QRS: LBBB Discharge - Discharge Clinical Impression: COPD exacerbation, COPD with exacerbation Condition: Stable Disposition: HOME, SELF-CARE Instructions: Chronic Obstructive Lung Disease ([facility]) Additional Instructions: Please call your primary physician first thing in the morning to schedule a recheck Prescriptions: Cefdinir 300 mg PO BID 7 Days #14 capsule Referrals: WILMAR BENSON FNP-C [Primary Care Provider] - Follow up as needed
--- NOTE | 2019-07-26 01:09 | RADIOLOGY REPORT (SQ) ---
CLINICAL HISTORY: difficulty breathing COMPARISON: None. TECHNIQUE: XR CHEST 1 VIEW 07/25/2019 11:50 PM CDT FINDINGS: The heart is mildly enlarged. Lungs are clear without consolidation, atelectasis, mass or edema. There is a trace right pleural effusion. There is no pneumothorax. There is an old left rib fracture. IMPRESSION: Probable emphysema. No significant change.
[2019-07-26 02:31] LABS: ABSOLUTE EOSINOPHILS # (AUTO) 0.1 10^3/uL (0.0-0.6); ABSOLUTE LYMPHOCYTES (AUTO) 2.8 10^3/uL (0.5-4.7); ABSOLUTE NEUT (AUTO) 7.1 10^3/uL (1.7-8.2); BASOPHILS % (AUTO) 0.2 % (0-2); EOSINOPHILS % (AUTO) 1.3 % (0-6); HEMATOCRIT 30.4 % (36.0-47.0); LYMPHOCYTES % (AUTO) 25.4 % (13-45); MEAN CORPUSCULAR HEMOGLOBIN 30.6 pg (27.0-33.4); MEAN CORPUSCULAR HGB CONC 32.8 g/dL (32.0-36.0); MEAN CORPUSCULAR VOLUME 93 fl (80-97); MONOCYTES % (AUTO) 9.2 % (3-13); PLATELET COUNT 192 10^3/uL (150-450); RED BLOOD COUNT 3.26 10^6/uL (3.72-5.28); RED CELL DISTRIBUTION WIDTH 14.8 % (11.5-14.0); SEGMENTED NEUTROPHILS % (AUTO) 63.9 % (42-78); TOTAL CELLS COUNTED % (AUTO) 100 %
[2019-07-26 02:45] LABS: ALBUMIN 3.3 g/dL (3.5-5.0); ALKALINE PHOSPHATASE 98 U/L (38-126); ANION GAP 7 (5-19); ASPARTATE AMINO TRANSFERASE 20 U/L (14-36); BILIRUBIN,DIRECT 0.2 mg/dL (0.0-0.4); BILIRUBIN,TOTAL 0.3 mg/dL (0.2-1.3); BLOOD UREA NITROGEN 29 mg/dL (7-20); CARBON DIOXIDE 30 mmol/L (22-30); CHLORIDE 102 mmol/L (98-107); GLUCOSE 97 mg/dL (75-110); POTASSIUM 4.8 mmol/L (3.6-5.0)
[2019-07-26 03:04] LABS: NT PRO BNP 620 pg/mL (5-900); TROPONIN I < 0.012 ng/mL
[2019-07-26 03:21] LABS: APPEARANCE,URINE SLIGHTLY-CLOUDY; BILIRUBIN,URINE NEGATIVE (NEGATIVE); COLOR,URINE YELLOW; GLUCOSE, URINE NEGATIVE (NEGATIVE); KETONES,URINE NEGATIVE (NEGATIVE); LEUKOCYTE ESTERASE,URINE TRACE (NEGATIVE); NITRITE,URINE NEGATIVE (NEGATIVE); PROTEIN,URINE NEGATIVE (NEGATIVE); URINE SPECIFIC GRAVITY 1.018
[2019-07-26] MEDS ORDERED: SULFAMETHOXAZOLE/TRIMETHOPRIM 800-160 MG TABLET PO ONE (03:28)
[2019-07-26 03:40] VITALS: BP 138/73
--- NOTE | 2019-07-27 14:18 | EKG REPORT ---
SEVERITY:- ABNORMAL ECG - SINUS RHYTHM LEFT BUNDLE BRANCH BLOCK : Confirmed by: Francisca Marin 27-Jul-2019 14:17:49
== END 2019-07-26 03:41 | disposition home or self-care (01) ==
LOC: ER 23:22
DX: J44.1 Chronic obstructive pulmonary disease with (acute) exacerbation (principal); R07.9 Chest pain, unspecified; R53.1 Weakness; I50.9 Heart failure, unspecified; I11.0 Hypertensive heart disease with heart failure; I25.10 Atherosclerotic heart disease of native coronary artery without angina pectoris; E11.9 Type 2 diabetes mellitus without complications; Z90.49 Acquired absence of other specified parts of digestive tract; Z86.718 Personal history of other venous thrombosis and embolism
CPT/HCPCS: 36415; 71045; 80053; 81001; 83880; 84484; 85025; 93005; 93010; 99285

== ENCOUNTER 2019-08-24 16:15 | Inpatient (IN) | payer MEDICARE ==
[2019-08-24] MEDS ORDERED: NITROGLYCERIN/D5W 50 MG/250 ML RTUINJ IV ONE (16:30)
--- NOTE | 2019-08-24 16:31 | ER Document Report ---
ED Medical Screen (RME) - General Chief Complaint: Shortness Of Breath Stated Complaint: DIFFICULTY BREATHING Time Seen by Provider: 08/24/19 16:16 Primary Care Provider: WILMAR BENSON FNP-C [Primary Care Provider] - Follow up as needed Mode of Arrival: Wheelchair Information source: Relative Notes: 73-year-old female presented to ED for severe respiratory distress. When her sats were done in the pit area her O2 sat was 51% temp was 99.1 pulse was 156 and blood pressure was 156/127. She was in severe distress at the time. She was taken back to room for started on oxygen put on the monitor and BiPAP has been ordered. I have contacted Dr. Cronin and she will go in and take the patient. TRAVEL OUTSIDE OF THE [place] IN LAST 30 DAYS: No - Related Data Allergies/Adverse Reactions: ibuprofen [From Motrin] Allergy (Intermediate, Verified 07/01/19 22:47) RASH/UTICARTIA Past Medical History - Past Medical History Cardiac Medical History: Reports: Hx Congestive Heart Failure, Hx Coronary Artery Disease, Hx DVT, Hx Hypertension Denies: Hx Atrial Fibrillation, Hx Heart Attack, Hx Heart Murmur Pulmonary Medical History: Reports: Hx Asthma, Hx COPD, Hx Pneumonia Denies: Hx Bronchitis, Hx Respiratory Failure, Hx Sleep Apnea, Hx Tuberculosis Neurological Medical History: Denies: Hx Cerebrovascular Accident, Hx Seizures, Hx Parkinson's Disease Endocrine Medical History: Reports: Hx Diabetes Mellitus Type 2. Denies: Hx Diabetes Mellitus Type 1, Hx Hyperthyroidism, Hx Hypothyroidism Renal/ Medical History: Reports: Hx Renal Insufficiency. Denies: Hx Peritoneal Dialysis GI Medical History: Reports: Hx Diverticulitis, Hx Gastroesophageal Reflux Disease. Denies: Hx Cirrhosis, Hx Crohn's Disease, Hx Hepatitis, Hx Hiatal Hernia, Hx Pancreatitis, Hx Ulcer - ?, Hx Ulcerative Colitis Musculoskeltal Medical History: Reports Hx Arthritis, Denies Hx Gout, Denies Hx Systemic Lupus Erythematosus Skin Medical History: Denies Hx Eczema, Denies Hx Psoriasis Psychiatric Medical History: Denies: Hx Depression Traumatic Medical History: Reports: Hx Fractures - several broken ribs Infectious Medical History: Denies: Hx Hepatitis Past Surgical History: Reports: Hx Appendectomy, Hx Cholecystectomy, Hx Herniorrhaphy, Hx Hysterectomy, Hx Orthopedic Surgery - rotator cuff. Denies: Hx Mastectomy, Hx Open Heart Surgery, Hx Pacemaker - Immunizations Immunizations up to date: Yes Hx Diphtheria, Pertussis, Tetanus Vaccination: No Doctor's Discharge - Discharge Referrals: WILMAR BENSON FNP-C [Primary Care Provider] - Follow up as needed
[2019-08-24] MEDS ORDERED: FUROSEMIDE INJ/PF 40 MG/4 ML SDV IV ONE (17:02)
[2019-08-24 17:13] LABS: HEMATOCRIT 35.6 % (36.0-47.0); HEMOGLOBIN 11.6 g/dL (12.0-15.5); MEAN CORPUSCULAR HGB CONC 32.5 g/dL (32.0-36.0); MEAN CORPUSCULAR VOLUME 96 fl (80-97); PLATELET COUNT 258 10^3/uL (150-450); RED BLOOD COUNT 3.73 10^6/uL (3.72-5.28); RED CELL DISTRIBUTION WIDTH 14.4 % (11.5-14.0); WHITE BLOOD COUNT 18.6 10^3/uL (4.0-10.5)
[2019-08-24 17:31] LABS: ALKALINE PHOSPHATASE 107 U/L (38-126); ANION GAP 9 (5-19); ASPARTATE AMINO TRANSFERASE 38 U/L (14-36); BILIRUBIN,DIRECT 0.2 mg/dL (0.0-0.4); BILIRUBIN,TOTAL 0.5 mg/dL (0.2-1.3); BLOOD UREA NITROGEN 15 mg/dL (7-20); CALCIUM 8.9 mg/dL (8.4-10.2); CARBON DIOXIDE 27 mmol/L (22-30); CHLORIDE 102 mmol/L (98-107); CREATINE KINASE 54 U/L (30-135); GLUCOSE 140 mg/dL (75-110); POTASSIUM 4.8 mmol/L (3.6-5.0); TOTAL PROTEIN 7.3 g/dL (6.3-8.2)
[2019-08-24 17:32] LABS: ABSOLUTE MONOCYTES # (MANUAL) 0.6 10^3/uL (0.1-1.4); BAND NEUTROPHILS % (MANUAL) 7 % (3-5); BASOPHILS % (MANUAL) 0 % (0-2); EOSINOPHILS % (MANUAL) 0 % (0-6); LYMPHOCYTES % (MANUAL) 11 % (13-45); METAMYELOCYTES % (MANUAL) 1 % (0); MONOCYTES % (MANUAL) 3 % (3-13); SEGMENTED NEUTROPHILS % (MAN) 78 % (42-78); TOTAL CELLS COUNTED 100
[2019-08-24 17:33] LABS: PLATELET CLUMPS PRESENT; PLATELET COMMENT ADEQUATE; POLYCHROMASIA SLIGHT
[2019-08-24 17:43] LABS: CREATINE KINASE MB 0.98 ng/mL (<4.55); NT PRO BNP 1930 pg/mL (5-900)
[2019-08-24 17:45] LABS: TROPONIN I < 0.012 ng/mL
[2019-08-24] MEDS ORDERED: ALBUTEROL SULFATE 0.083% NEB 2.5 MG/3 ML AMPUL NEB ONE (17:49)
[2019-08-24] MEDS ORDERED: ONDANSETRON HCL INJ/PF 4 MG/2 ML SDV IV PRN (18:34)
[2019-08-24] MEDS ORDERED: VANCOMYCIN HCL 0 MG in DEXTROSE 5%-WATER 250 ML IV NR (18:45)
--- NOTE | 2019-08-24 18:51 | Progress Note ---
Provider Note Provider Note: [employer] Specialist Note Pt is a 73 yo woman with CHF,COPD, HTN who presented to the ED c/o shortness of breath. She has been out of her lasix for three days. In the ED, she was found to be hypoxic and hypertensive. She was given lasix and started on a NTG infusion. She was placed on bipap. Shortly after the NTG was started, she became hypotensive. Vitals: reviewed Labs/Imaging studies: reviewed EKG: pending Assessment: Critically ill 73 yo woman with acute hypoxic respiratory failure, acute CHF, COPD, PNA. Plan: 1. Respiratory: acute hypoxic respiratory failure. Continue bipap. Check ABG 2. Pulmonary: HCAP. WBC is 18. Will start vanc and zosyn. Check cultures, check for influenza. COPD, duonebs. May need steroids 3. CV: acute CHF. Pt has been out of her lasix for three day. s/p lasix in the ED. On NTG drip, will titrate for BP. Will order echo. EKG pending. First set of troponis negative 4. Ethics: pt is DNR per the report of the ED physician. 5. Supportive care 6. Full H&P to follow.
--- NOTE | 2019-08-24 18:53 | RADIOLOGY REPORT (SQ) ---
EXAM DESCRIPTION: CHEST SINGLE VIEW COMPLETED DATE/TIME: 08/24/2019 5:28 pm REASON FOR STUDY: SOB COMPARISON: 07/26/2019 EXAM PARAMETERS: NUMBER OF VIEWS: One view. TECHNIQUE: Single frontal radiographic view of the chest acquired. RADIATION DOSE: NA LIMITATIONS: None. FINDINGS: LUNGS AND PLEURA: There is hyperexpansion of the lungs. There is no infiltrate, effusion, or mass. MEDIASTINUM AND HILAR STRUCTURES: No masses. Contour normal. HEART AND VASCULAR STRUCTURES: Heart normal in size. Normal vasculature. BONES: No acute findings. HARDWARE: None in the chest. OTHER: No other significant finding. IMPRESSION: Chronic lung changes with no acute cardiopulmonary findings. TECHNICAL DOCUMENTATION: JOB ID: [id number] [employer]- All Rights Reserved Reading location - IP/workstation name: [email or web address]
--- NOTE | 2019-08-24 19:05 | ER Document Report ---
ED General - General Chief Complaint: Shortness Of Breath Stated Complaint: DIFFICULTY BREATHING Time Seen by Provider: 08/24/19 16:16 Primary Care Provider: WILMAR BENSON FNP-C [Primary Care Provider] - Follow up as needed Mode of Arrival: Wheelchair Notes: 73-year-old female presents emergency department complaining of sudden onset of shortness of breath immediately prior to arrival. Patient has a history of COPD and CHF, has been out of her Lasix for 3 days. Went to see her primary care provider today and got her flu and pneumovax vaccines today. The shortness of breath started approximately an hour later. Denies any chest pain. TRAVEL OUTSIDE OF THE [place] IN LAST 30 DAYS: No - Related Data Allergies/Adverse Reactions: ibuprofen [From Motrin] Allergy (Intermediate, Verified 07/01/19 22:47) RASH/UTICARTIA Past Medical History - General Information source: Patient, Relative - Social History Smoking Status: Former Smoker Chew tobacco use (# tins/day): No Frequency of alcohol use: None Drug Abuse: None Family History: CAD, COPD, DM, Hypertension, Malignancy Patient has suicidal ideation: No Patient has homicidal ideation: No - Past Medical History Cardiac Medical History: Reports: Hx Congestive Heart Failure, Hx Coronary Artery Disease, Hx DVT, Hx Hypertension Denies: Hx Atrial Fibrillation, Hx Heart Attack, Hx Heart Murmur Pulmonary Medical History: Reports: Hx Asthma, Hx COPD, Hx Pneumonia Denies: Hx Bronchitis, Hx Respiratory Failure, Hx Sleep Apnea, Hx Tuberculosis Neurological Medical History: Denies: Hx Cerebrovascular Accident, Hx Seizures, Hx Parkinson's Disease Endocrine Medical History: Reports: Hx Diabetes Mellitus Type 2. Denies: Hx Diabetes Mellitus Type 1, Hx Hyperthyroidism, Hx Hypothyroidism Renal/ Medical History: Reports: Hx Renal Insufficiency. Denies: Hx Peritoneal Dialysis GI Medical History: Reports: Hx Diverticulitis, Hx Gastroesophageal Reflux Disease. Denies: Hx Cirrhosis, Hx Crohn's Disease, Hx Hepatitis, Hx Hiatal Hernia, Hx Pancreatitis, Hx Ulcer - ?, Hx Ulcerative Colitis Musculoskeletal Medical History: Reports Hx Arthritis, Denies Hx Gout, Denies Hx Systemic Lupus Erythematosus Skin Medical History: Denies Hx Eczema, Denies Hx Psoriasis Psychiatric Medical History: Denies: Hx Depression Traumatic Medical History: Reports: Hx Fractures - several broken ribs Infectious Medical History: Denies: Hx Hepatitis Past Surgical History: Reports: Hx Appendectomy, Hx Cholecystectomy, Hx Herniorrhaphy, Hx Hysterectomy, Hx Orthopedic Surgery - rotator cuff. Denies: Hx Mastectomy, Hx Open Heart Surgery, Hx Pacemaker - Immunizations Immunizations up to date: Yes Hx Diphtheria, Pertussis, Tetanus Vaccination: No Hx Pneumococcal Vaccination: 08/30/14 Review of Systems - Review of Systems Constitutional: No symptoms reported EENT: No symptoms reported Cardiovascular: See HPI Respiratory: See HPI -: Yes All other systems reviewed and negative Physical Exam - Vital signs Vitals: Resp BP Pulse Ox 26 H 172/113 H 96 08/24/19 16:29 08/24/19 16:29 08/24/19 16:29 Interpretation: Hypertensive, Tachycardic, Tachypneic - Notes Notes: GENERAL: Sitting straight up in bed, leaning slightly forward, appears acutely short of breath, can only speak 1-2 word sentences, can barely answer any questions. Using accessory muscles of respiration. HEAD: Normocephalic, atraumatic EYES: Pupils equal, round and reactive to light, extraocular movements intact. ENT: Oral mucosa moist, tongue midline. NECK: Full range of motion, supple, trachea midline. LUNGS: Poor air movement, minimal wheezes, market rhonchi and rales, acutely short of breath as noted above, tachypneic. HEART: Tachycardic rate and rhythm, no murmurs, gallops, rubs. ABDOMEN: Soft, nontender, nondistended, bowel sounds present in all 4 quadrants. EXTREMITIES: Moves all 4 extremities spontaneously, trace edema, radial and dorsalis pedis pulses 2/4 bilaterally. No cyanosis. NEUROLOGICAL: Alert, anxious, moves all 4 extremities equally. PSYCH: Anxious . SKIN: Warm, Dry, normal turgor, no rashes or lesions noted. Course - Re-evaluation Re-evalutation: 08/24/19 19:05 CBC shows leukocytosis at 18.6, anemia with hemoglobin 11.6, platelets normal, CMP unremarkable, proBNP elevated 1930, troponin negative, chest x-ray on my examination shows fluid overload. 08/24/19 19:05 On arrival patient was in acute respiratory distress, having a great deal of difficulty breathing and her presentation was consistent with flash pulmonary edema. Patient was immediately started on BiPAP 05/05, required 40% FiO2 to maintain saturations in the mid 90s, patient was started on nitroglycerin drip initially at 100 mics per minute, this was tolerated well for approximately 30 minutes and then it had to be decreased to 50 mics per minute as she became somewhat hypotensive. On recheck patient is doing much better, still has rales but has no wheezing, is now able to lay back in the bed at approximately 45 degree angle, can use 3-4 word sentences now. Discussed with hospitalist for admission and they agreed to accept the patient however after discussion with nursing terminal supervisor given the BiPAP and the nitro drip patient is required to go to the ICU instead. Discussed with Dr. Young who graciously accepts the patient to the ICU. - Vital Signs Vital signs: Temp Pulse Resp BP Pulse Ox 99.1 F 125 H 30 H 95/63 L 96 08/24/19 16:38 08/24/19 16:38 08/24/19 18:31 08/24/19 18:31 08/24/19 18:31 - Laboratory Result Diagrams: 08/24/19 16:54 08/24/19 16:54 Laboratory results interpreted by me: 08/24/19 08/24/19 08/24/19 16:54 16:54 16:54 WBC 18.6 H Hgb 11.6 L Hct 35.6 L RDW 14.4 H Band Neutrophils % 7 H Lymphocytes % (Manual) 11 L Metamyelocytes % 1 H Abs Neuts (Manual) 16.0 H Est GFR (MDRD) Non-Af 54 L Glucose 140 H AST 38 H NT-Pro-B Natriuret Pep 1930 H Critical Care Note - Critical Care Note Total time excluding time spent on procedures (mins): 60 Discharge - Discharge Clinical Impression: Flash pulmonary edema, Acute respiratory failure with hypoxia, Morbid obesity Condition: Serious Disposition: ADMITTED INPATIENT Admitting Provider: Assistant Infant Toddler Teacher Dr. Young. Unit Admitted: ICU Referrals: WILMAR BENSON FNP-C [Primary Care Provider] - Follow up as needed
[2019-08-24 21:04] LABS: ARTERIAL BLOOD BASE EXCESS 0.9 mmol/L; ARTERIAL BLOOD H2CO3 1.67 mmol/L (1.05-1.35); ARTERIAL BLOOD HCO3 27.7 mmol/L (20-24); ARTERIAL BLOOD O2 SATURATION 85.6 % (94-98); ARTERIAL BLOOD PCO2 55.6 mmHg (35-45); ARTERIAL BLOOD PH 7.32 (7.35-7.45); ARTERIAL BLOOD PO2 55.2 mmHg (80-100); ARTERIAL BLOOD TOTAL CO2 29.5 mmol/L (21-25)
[2019-08-24 21:06] LABS: ARTERIAL BLOOD FIO2 40%
--- NOTE | 2019-08-24 21:45 | EKG REPORT ---
SEVERITY:- ABNORMAL ECG - SINUS RHYTHM LEFT BUNDLE BRANCH BLOCK : Confirmed by: Victorina Romano MD 24-Aug-2019 21:44:57
[2019-08-24] MEDS ORDERED: VANCOMYCIN HCL 1,250 MG in DEXTROSE 5%-WATER 250 ML IV SCH (22:00)
[2019-08-24] MEDS: PIPERACILLIN SODIUM/TAZOBACTAM 3.375 GM in NORMAL SALINE 100 ML IV SCH (22:27)
[2019-08-25] MEDS: PIPERACILLIN SODIUM/TAZOBACTAM 3.375 GM in NORMAL SALINE 100 ML IV SCH ×2 (02:53→11:23)
[2019-08-25] MEDS: ACETAMINOPHEN 325 MG TABLET PO PRN ×3 (03:20→16:44)
[2019-08-25 07:43] LABS: HEMATOCRIT 29.2 % (36.0-47.0); HEMOGLOBIN 9.7 g/dL (12.0-15.5); MEAN CORPUSCULAR HEMOGLOBIN 31.3 pg (27.0-33.4); MEAN CORPUSCULAR HGB CONC 33.1 g/dL (32.0-36.0); MEAN CORPUSCULAR VOLUME 95 fl (80-97); PLATELET COUNT 176 10^3/uL (150-450); RED BLOOD COUNT 3.08 10^6/uL (3.72-5.28); RED CELL DISTRIBUTION WIDTH 14.4 % (11.5-14.0); WHITE BLOOD COUNT 10.7 10^3/uL (4.0-10.5)
[2019-08-25 08:00] LABS: ANION GAP 6 (5-19); BLOOD UREA NITROGEN 20 mg/dL (7-20); CALCIUM 8.4 mg/dL (8.4-10.2); CARBON DIOXIDE 30 mmol/L (22-30); CHLORIDE 102 mmol/L (98-107); GLUCOSE 84 mg/dL (75-110)
--- NOTE | 2019-08-25 09:00 | RADIOLOGY REPORT (SQ) ---
EXAM DESCRIPTION: CHEST SINGLE VIEW COMPLETED DATE/TIME: 08/25/2019 6:36 am REASON FOR STUDY: resp failure, CHF, PNA COMPARISON: 08/24/2019 EXAM PARAMETERS: NUMBER OF VIEWS: One view. TECHNIQUE: Single frontal radiographic view of the chest acquired. RADIATION DOSE: NA LIMITATIONS: None. FINDINGS: LUNGS AND PLEURA: Stable chronic changes without definite superimposed airspace disease, p leural effusion or pneumothorax. Emphysematous change. MEDIASTINUM AND HILAR STRUCTURES: No masses. Contour normal. HEART AND VASCULAR STRUCTURES: Enlarged cardiac silhouette, stable. Aortic atherosclerosis. BONES: No acute findings. HARDWARE: None in the chest. OTHER: No other significant finding. IMPRESSION: Emphysematous change without definite evidence of acute cardiopulmonary process. No fin dings to suggest CHF. TECHNICAL DOCUMENTATION: JOB ID: [id number] [employer]- All Rights Reserved Reading location - IP/workstation name: [email or web address]
--- NOTE | 2019-08-25 10:49 | CRITICAL CARE ADMISSION REPORT ---
HPI Date:: 08/25/19 Reason for ICU Reason:: acute hypoxic respiratory failure, acute CHF HPI: Pt is a 73 yo woman with CHF, COPD,CAD, HTN who presented to the ED yesterday c/o shortness of breath. She had been out of her lasix for three days. In the ED, she was found to be hypoxic and hypertensive. SHe was placed on bipap. She also go lasix and was started on NTG. Today, she is off bipap and her NTG is off. She states her breathing has improved, but she c/o mild chest pain. - Diagnosis/Plan (1) Acute respiratory failure with hypoxia Is this a current diagnosis for this admission?: Yes (2) Acute on chronic diastolic CHF (congestive heart failure) Is this a current diagnosis for this admission?: Yes (3) ANASTASIA (acute kidney injury) Is this a current diagnosis for this admission?: Yes (4) CAD (coronary artery disease) Qualifiers: Coronary Disease-Associated Artery/Lesion type: unspecified vessel or lesion type Is this a current diagnosis for this admission?: Yes (5) COPD (chronic obstructive pulmonary disease) Is this a current diagnosis for this admission?: Yes (6) Healthcare-associated pneumonia Is this a current diagnosis for this admission?: Yes Past Medical History Cardiac Medical History: Reports: Congestive Heart Failure, Coronary Artery D isease, DVT, Hypertension Denies: Atrial Fibrillation, Myocardial Infarction, Heart Murmur Pulmonary Medical History: Reports: Asthma, Chronic Obstructive Pulmonary Disease (COPD), Pneumonia Denies: Bronchitis, Respiratory Failure, Sleep Apnea, Tuberculosis Neurological Medical History: Denies: Seizures Endocrine Medical History: Reports: Diabetes Mellitus Type 2 Denies: Diabetes Mellitus Type 1, Hyperthyroidism, Hypothyroidism GI Medical History: Reports: Diverticulitis, Gastroesophageal Reflux Disease Denies: Cirrhosis, Crohn's Disease, Hepatitis, Hiatal Hernia, Ulcerative Colitis Musculoskeltal Medical History: Reports: Arthritis Denies: Gout Skin Medical History: Denies: Eczema, Psoriasis Psychiatric Medical History: Denies: Depression Hematology: Reports: Anemia Denies: Hemophilia, Sickle Cell Disease, Bleeding Tendencies Past Surgical History Past Surgical History: Reports: Appendectomy, Cholecystectomy, Herniorrhaphy, Hysterectomy, Orthopedic Surgery - rotator cuff Denies: Amputation, Mastectomy, Pacemaker Social/Family History - Social History Smoking Status: Former Smoker Frequency of Alcohol Use: None Hx Recreational Drug Use: No Drugs: None Hx Prescription Drug Abuse: No - Medication/Allergies Home Medications: Aspirin [Adult Low Dose Aspirin EC] 81 mg PO DAILY 05/08/19 Atorvastatin Calcium [Lipitor 10 mg Tablet] 10 mg PO QHS 05/08/19 Hydrocodone/Acetaminophen [[place] 5-325 mg Tablet] 1 tab PO Q12HP PRN 05/08/19 Fluticasone/Umeclidin/Vilanter [Trelegy 100-62.5-25 Mcg Ellipta 14 Dose/Dpi] 1 each IH DAILY 30 Days #1 inhaler 06/15/19 Carvedilol [Coreg 3.125 mg Tablet] 3.125 mg PO Q12 #60 tablet 07/06/19 Furosemide [Lasix 20 mg Tablet] 20 mg PO DAILY tablet 07/06/19 Lisinopril [Prinivil 5 mg Tablet] 5 mg PO DAILY tablet 07/06/19 Cefdinir 300 mg PO BID 7 Days #14 capsule 07/26/19 Allergies/Adverse Reactions: ibuprofen [From Motrin] Allergy (Intermediate, Verified 07/01/19 22:47) RASH/UTICARTIA Physical Exam Vital Signs: Temp Pulse Resp BP Pulse Ox 98.1 F 68 20 134/47 H 93 08/25/19 08:00 08/25/19 08:00 08/25/19 08:00 08/25/19 08:00 08/25/19 08:00 Intake & Output 08/24/19 08/25/19 08/26/19 06:59 06:59 06:59 Intake Total 120 Output Total 650 Balance -530 Weight 84.5 kg 85 kg Weight/Height Weight 85 kg Height 5 ft 2 in General appearance: PRESENT: no acute distress, well-developed, well-nourished Respiratory exam: PRESENT: clear to auscultation chago, unlabored Cardiovascular exam: PRESENT: RRR GI/Abdominal exam: PRESENT: soft Extremities exam: PRESENT: other - trace edema Laboratory/Radiographs Laboratory Results: 08/25/19 07:36 08/25/19 07:36 08/24/19 08/24/19 08/24/19 16:54 16:54 20:52 WBC 18.6 H RBC 3.73 Hgb 11.6 L Hct 35.6 L MCV 96 MCH 31.0 MCHC 32.5 RDW 14.4 H Plt Count 258 Seg Neutrophils % Not Reportable Carbonic Acid 1.67 H HCO3/H2CO3 Ratio 16:1 ABG pH 7.32 L ABG pCO2 55.6 H ABG pO2 55.2 L ABG HCO3 27.7 H ABG O2 Saturation 85.6 L ABG Base Excess 0.9 FiO2 40% Sodium 138.4 Potassium 4.8 Chloride 102 Carbon Dioxide 27 Anion Gap 9 BUN 15 Creatinine 1.01 Est GFR ( Amer) > 60 Glucose 140 H Calcium 8.9 Total Bilirubin 0.5 AST 38 H Alkaline Phosphatase 107 Total Protein 7.3 Albumin 4.0 08/25/19 08/25/19 07:36 07:36 WBC 10.7 H RBC 3.08 L Hgb 9.7 L Hct 29.2 L MCV 95 MCH 31.3 MCHC 33.1 RDW 14.4 H Plt Count 176 Seg Neutrophils % Carbonic Acid HCO3/H2CO3 Ratio ABG pH ABG pCO2 ABG pO2 ABG HCO3 ABG O2 Saturation ABG Base Excess FiO2 Sodium 138.0 Potassium 4.0 Chloride 102 Carbon Dioxide 30 Anion Gap 6 BUN 20 Creatinine 1.39 H Est GFR ( Amer) 45 L Glucose 84 Calcium 8.4 Total Bilirubin AST Alkaline Phosphatase Total Protein Albumin 08/24/19 08/24/19 08/24/19 16:54 16:54 19:12 Creatine Kinase 54 CK-MB (CK-2) 0.98 Troponin I < 0.012 0.121 NT-Pro-B Natriuret Pep 1930 H 08/25/19 08/25/19 00:58 07:36 Creatine Kinase CK-MB (CK-2) Troponin I 0.263 0.205 NT-Pro-B Natriuret Pep Impressions: Chest X-Ray 08/25/19 06:00 IMPRESSION: Emphysematous change without definite evidence of acute cardiopulmo nary process. No findings to suggest CHF. Critical Time -: The care of a critically ill patient is dynamic. This note represents a static moment in the admission process. orders and treatments may be given simulataneously and urgentl, and time is not brewery representative of the treatment process. This patient requires Critical Care secondary to life threating organ or limb dysfunction. Without the need for Critical Care services, the patient is at risk for increasid mortality and morbidity. Provider Note Provider Note: [id number] yo woman with acute hypoxic respiratory failure, acute CHF, COPD, PNA, elevated troponins. ANASTASIA Plan: 1. Respiratory: acute hypoxic respiratory failure,resolving. Pt is off bipap. Is on nasal cannula. 2. Pulmonary: HCAP. ABTX Day 2. On vanc and zosyn. COPD, duonebs. 3. CV: acute CHF. CAD. elevated troponins. Pt with some episodes of hypotension. Dr. Casillas consulted. Echo ordered. 4. Renal: ANASTASIA. Will d/c zosyn. WIll continue to monitor 5. ID: [email or web address] [email or web address] Day 2. WBC decreasing. Will d/c zosyn and start cefepime. Continue vanc. Cultures pending 6. Nutrition: cardiac diet 7. Endocrine: accuchecks, SSI 8. Prophylaxis: lovenox. 9. Disposition: stable for transfer out of the ICU
--- NOTE | 2019-08-25 13:32 | XCELERA REPORT ---
[address] [address] Transthoracic Echocardiogram Report Name: GAVI PEDRO Age: 73 yrs Gender: Female : 1945 Patient Status: Inpatient Patient Location: ICU^608^A Study Date: 08/25/2019 10:39 AM Height: 62 in Weight: 166 lb BSA: 1.8 m2 Procedure: A two-dimensional transthoracic echocardiogram with color flow and Doppler was performed. Study Quality: Fair. Reason For Study: CHF History: CHF. Ordering Physician: NATY RIGGS Performed By: Rachelle Coley Interpretation Summary CHF The left ventricle is normal in size. There is normal left ventricular wall thickness. LV EF is 65% Left ventricular systolic function is normal. Doppler measurements suggest impaired left ventricular relaxation, which is associated with grade I/IV or mild diastolic dysfunction The left ventricular wall motion is normal. There is no thrombus. No ASD VSD or PFO seen. The right ventricle is mildly dilated. The right ventricular systolic function is normal. The right atrium is borderline dilated. The left atrial size is normal. There is no evidence of mitral valve prolapse. There is no vegetation seen on the mitral valve. There is no mitral valve stenosis. There is a trace amount of mitral regurgitation The aortic valve is mildly calcified There is no aortic valvular vegetation. There is aortic sclerosis without aortic stenosis. There is no LVOT obstruction. No aortic regurgitation is present. There is no tricuspid stenosis. There is a mild to moderate amount of tricuspid regurgitation There is servere pulmonary hypertension by echo RVSP is 62 to 67 mm of Hg , with RA mean of 5 to 10. There is no pulmonic valvular stenosis. There is no pulmonic valvular regurgitation. The aortic root is normal size. The inferior vena cava appeared normal and decreased > 50% with respiration (RAP 5-10 mmHg) There is no pericardial effusion. MMode/2D Measurements & Calculations RVDd: 3.4 cm LVIDd: 3.8 cm FS: 35.0 % Ao root diam: 2.4 cm IVSd: 1.0 cm LVIDs: 2.5 cm EDV(Teich): 61.4 ml Ao root area: 4.4 cm2 LVPWd: 0.97 cm ESV(Teich): 21.4 ml LA dimension: 3.4 cm EF(Teich): 65.1 % Doppler Measurements & Calculations MV E max xavier: MV P1/2t max xavier: Ao V2 max: LV V1 max P.6 cm/sec 111.1 cm/sec 200.1 cm/sec 8.6 mmHg MV A max xavier: MV P1/2t: 85.3 msec Ao max PG: LV V1 max: 156.0 cm/sec MVA(P1/2t): 2.6 cm2 16.0 mmHg 146.4 cm/sec MV E/A: 0.72 MV dec slope: 381.2 cm/sec2 MV dec time: 0.30 sec PA V2 max: TR max xavier: MV P1/2t-pr_phl: 77.0 cm/sec 376.0 cm/sec 85.3 msec PA max P.4 mmHgTR max P.5 mmHg Left Ventricle The left ventricle is normal in size. There is normal left ventricular wall thickness. LV EF is 65%. Left ventricular systolic function is normal. Doppler measurements suggest impaired left ventricular relaxation, which is associated with grade I/IV or mild diastolic dysfunction. The left ventricular wall motion is normal. There is no thrombus. No ASD VSD or PFO seen. Right Ventricle The right ventricle is mildly dilated. The right ventricular systolic function is normal. Atria The right atrium is borderline dilated. The left atrial size is normal. Mitral Valve There is no evidence of mitral valve prolapse. There is no vegetation seen on the mitral valve. There is no mitral valve stenosis. There is a trace amount of mitral regurgitation. Aortic Valve The aortic valve is mildly calcified. There is no aortic valvular vegetation. There is aortic sclerosis without aortic stenosis. There is no LVOT obstruction. No aortic regurgitation is present. Tricuspid Valve There is no tricuspid stenosis. There is a mild to moderate amount of tricuspid regurgitation. There is servere pulmonary hypertension by echo. RVSP is 62 to 67 mm of Hg , with RA mean of 5 to 10. Pulmonic Valve There is no pulmonic valvular stenosis. There is no pulmonic valvular regurgitation. Great Vessels The aortic root is normal size. The inferior vena cava appeared normal and decreased > 50% with respiration (RAP 5-10 mmHg). Effusions There is no pericardial effusion. : NATY RIGGS Lakshmi
--- NOTE | 2019-08-25 13:38 | EKG REPORT ---
SEVERITY:- ABNORMAL ECG - SINUS RHYTHM LEFT BUNDLE BRANCH BLOCK : Confirmed by: Victorina Romano MD 25-Aug-2019 13:37:33
[2019-08-25] MEDS ORDERED: OXYCODONE-ACETAMINOPHEN 5-325 MG TABLET ONE (14:44)
[2019-08-25] MEDS: ENOXAPARIN SODIUM INJ 40 MG/0.4 ML DISP.SYRIN SUBCUT SCH (15:03)
[2019-08-25] MEDS: CEFEPIME 2 GM/D5W RTU 2 GM/50 ML RTUPB IV SCH ×2 (15:03→23:39)
[2019-08-25] MEDS: OXYCODONE-ACETAMINOPHEN 5-325 MG TABLET PO PRN ×2 (15:04→23:38)
[2019-08-25 15:18] LABS: APPEARANCE,URINE CLEAR; BILIRUBIN,URINE NEGATIVE (NEGATIVE); COLOR,URINE STRAW; GLUCOSE, URINE NEGATIVE (NEGATIVE); KETONES,URINE NEGATIVE (NEGATIVE); LEUKOCYTE ESTERASE,URINE NEGATIVE (NEGATIVE); NITRITE,URINE NEGATIVE (NEGATIVE); PROTEIN,URINE NEGATIVE (NEGATIVE); URINE SPECIFIC GRAVITY 1.012; UROBILINOGEN,URINE NEGATIVE mg/dL (<2.0)
--- NOTE | 2019-08-25 20:38 | PDOC CONSULTATION ---
Consultation-Blank Consultation: CARDIOLOGY CONSULTATION by Dr. Victorina Maradiaga on 08/25/2019. Patient seen at 8 AM on 08/25/2019. 60 minutes spent on this patient more than 50% of time spent in direct patient care. REASON FOR CONSULTATION: Patient admitted with shortness of breath, history of coronary artery disease, and chronic left bundle branch block pattern with atypical chest pressure and elevated troponin levels. CONSULT REQUESTING PHYSICIAN: Dr. Dayna Young, oxyacetylene burner. HISTORY PRESENT ILLNESS: The patient states she has been having shortness of breath with orthopnea but no PND since the last 3 to 4 days. She also has been having cough productive of yellowish sputum. There has been intermittent wheezing. She also claims to have chest pressure which is relieved with her sitting up and most likely this is secondary to GERD and not atypical angina presentation. She also states that she had not taken her Lasix for the last 3 to 4 days. She has been having some mild leg swelling which is improved. She came to the emergency room where she was hypoxic and in respiratory distress. She was treated with oxygen, BiPAP, inhalers and steroids and also placed on IV nitroglycerin. She is now having no chest pressure when she sits up. She denies any palpitations. There is no syncope. There is no symptoms suggestive of DVT. Note the patient's has history of chronic kidney disease which is slightly worse this admission. Past Medical History Cardiac Medical History: Reports: Congestive Heart Failure, Coronary Artery Disease, DVT, Hypertension Denies: Myocardial Infarction, Heart Murmur. As per patient she has had several cardiac catheterizations in the past with no significant CAD Pulmonary Medical History: Reports: Asthma, Chronic Obstructive Pulmonary Disease (COPD), also has obstructive sleep apnea, and uses CPAP at night. Neurological Medical History: Denies: Seizures. She has a remote history of TIA with no recurrence. There is no definite history of CVA Endocrine Medical History: Reports: Diabetes Mellitus Type 2 GI Medical History: Reports: Diverticulitis, Gastroesophageal Reflux Disease Denies: Hepatitis, Hiatal Hernia Musculoskeltal Medical History: Reports: Arthritis no history of rheumatoid arthritis or collagen vascular disease. GENITOURINARY: The patient has history of chronic kidney disease. No history of recurrent UTIs. Psychiatric Medical History: Denies: Depression Hematology: Reports: Anemia - TAKE IRON SOMETIMES Denies: Hemophilia, Sickle Cell Disease Past Surgical History Past Surgical History: Reports: Appendectomy, multiple cardiac catheterizations, without percutaneous intervention cholecystectomy, Herniorrhaphy, Hysterectomy, Orthopedic Surgery - rotator cuff Denies: Amputation, Mastectomy, Pacemaker. RESUSCITATION STATUS: The patient is a DNR. Her daughter is her is her surrogate healthcare decision maker. Social History Information Source: Patient Lives with: Alone Smoking Status: Current Every Day Smoker Frequency of Alcohol Use: None Hx Recreational Drug Use: No Drugs: None Hx Prescription Drug Abuse: No - Advance Directive Resuscitation Status: Full Code Surrogate healthcare decision maker:: Patient's is the surrogate decision-maker Family History Family History: Hypertension Parental Family History Reviewed: Yes Children Family History Reviewed: Yes Sibling(s) Family History Reviewed.: Yes Medication/Allergy Home Medications: Aspirin [Aspirin EC] 81 mg PO DAILY 03/04/18 Cetirizine HCl [Zyrtec 10 mg Tablet] 1 tab PO DAILYP PRN 03/04/18 Fluticasone/Salmeterol [Advair 250-50 Diskus 28 dose] 1 inh IH DAILY 03/04/18 Gabapentin [Neurontin 400 mg Capsule] 400 mg PO Q12 03/04/18 Hydrocodone/Acetaminophen [Center 5-325 Tablet] 1 each PO BIDP PRN 03/04/18 Lisinopril [Prinivil 5 mg Tablet] 5 mg PO DAILY 03/04/18 Metformin HCl [Glucophage 500 mg Tablet] 500 mg PO BIDBS 03/04/18 Omeprazole 40 mg PO Q6AM 03/04/18 Sucralfate [Carafate 1 gm Tablet] 1 gm PO ACHS 03/04/[address] [place] [Spiriva Handihaler 18 mcg/dose (30 Dose)] 1 cap IH DAILY 03/04/18 Allergies/Adverse Reactions: ibuprofen [From Motrin] Allergy (Intermediate, Verified 10/12/17 10:13) RASH/UTICARTIA Review of Systems Review of Systems: Constitutional: No fever or chills reported. Head : No recent chronic headaches, recent head injury. Eyes: No recent eye pain, diplopia, redness, discharge, acute visual changes. Ears: No recent chronic ear pain, acute hearing loss, ear discharge. Oral cavity: No recent ulcerations, bleeding, oral cavity discomfort. Neck: No recent acute neck pain reported. Hematologic: No recent easy bruising or bleeding or hematologic malignancy reported. Lymphatic: No recent lymphatic malignancy, chronic lymphadenopathy reported yet Cardiovascular system review: See history of present illness. Gives history of congestive heart failure but no history of prior myocardial infarction. No sustained palpitations, syncope or near syncope. Respiratory system review: No recent chronic cough, hemoptysis, blood clots in the lungs reported. Shortness of breath on exertion Gastrointestinal system review: Negative for any recent acute or chronic abdominal pain, hematemesis, melena, recent change in bowel habits. Genitourinary system review: No recent acute or chronic hematuria, flank pain, UTI etc. reported. Skin system review: Negative for any recent abnormal bruising, no rash, no pruritus reported. Neurologic: No prior history of strokes, mini strokes, seizure disorder. Psychologic: No history of major psychosis or major depression reported. Musculoskeletal: Minor aches and pains reported. No acute joint swelling reported. Endocrine: No recent polyuria, polydipsia, recent heat or cold intolerance. Current Medications Generic Name Dose Route Start Last Admin Trade Name Freq PRN Reason Stop Dose Admin Acetaminophen 650 mg 08/24/19 18:34 08/25/19 16:44 Tylenol 325 Mg Tablet PO 09/23/19 18:33 650 mg Q4HP PRN Administration FOR HEADACHE OR PAIN Albuterol/Ipratropium 3 ml 08/24/19 18:34 Duoneb 3 Ml Ampul NEB 09/23/19 18:33 RTQ4HP PRN SHORTNESS OF BREATH Enoxaparin Sodium 40 mg 08/25/19 10:00 08/25/19 15:03 Lovenox Inj 40 Mg/0.4 Ml Disp.Syrin SUBCUT 09/24/19 09:59 Not Given DAILY JUAN Vancomycin HCl 1,000 mg/ 250 mls @ 166.667 mls/hr 08/25/19 22:00 Dextrose IV 08/31/19 21:59 QHS JUAN Cefepime HCl 2 gm in 50 mls @ 100 mls/hr 08/25/19 12:00 08/25/19 15:03 Maxipime Rtu 2 Gm-D5w 50 Ml Premix Bag IV 09/01/19 11:59 100 mls/hr Q12@0000,1200 JUAN 100 mls/hr Administration Ondansetron HCl 4 mg 08/24/19 18:34 08/25/19 03:20 Zofran Inj/Pf 4 Mg/2 Ml Sdv IV 09/23/19 18:33 4 mg Q8HP PRN Administration FOR NAUSEA/VOMITING Oxycodone/Acetaminophen 1 tab 08/25/19 14:46 08/25/19 15:04 Percocet 5-325 Mg Tablet PO 09/01/19 14:45 1 tab Q4HP PRN Administration FOR PAIN Sodium Chloride 2.5 ml 08/24/19 22:00 08/25/19 15:03 Saline Flush 2.5 Ml Monoject Prefil Syrin IV 09/23/19 21:59 Not Given Q8 JUAN Discontinued Medications Generic Name Dose Route Start Last Admin Trade Name Freq PRN Reason Stop Dose Admin Albuterol 5 mg 08/24/19 17:49 08/24/19 19:01 Ventolin 0.083% Neb 2.5 Mg/3 Ml Ampul NEB 08/24/19 17:50 5 mg NOW ONE Administration Furosemide 40 mg 08/24/19 17:02 08/24/19 17:30 Lasix Inj/Pf 40 Mg/4 Ml Sdv IV 08/24/19 17:03 40 mg NOW ONE Administration Nitroglycerin/Dextrose Confirm 08/24/19 16:30 08/24/19 17:41 Ntg Rtu 50 Mg/D5w 250 Ml Iv Premix Bottle Administered 08/24/19 16:31 0 mcg/min Dose 0 mls/hr 50 mg in 250 mls @ ud Infusion IV .STK-MED ONE Piperacillin Sod/Tazobactam 100 mls @ 200 mls/hr 08/24/19 21:00 08/25/19 11:23 Sod 3.375 gm/ Sodium Chloride IV 08/31/19 20:59 Not Given Q6A JUAN Vancomycin HCl 1,250 mg/ 250 mls @ 166.667 mls/hr 08/24/19 22:00 08/24/19 22:27 Dextrose IV 08/31/19 21:59 166.67 mls/hr QHS JUAN 166.67 mls/hr Administration Oxycodone/Acetaminophen Confirm 08/25/19 14:44 08/25/19 15:04 Percocet 5-325 Mg Tablet Administered 08/25/19 14:45 Not Given Dose 1 tab .ROUTE .STK-MED ONE Labs- Entire Visit 08/24/19 08/24/19 08/24/19 16:54 16:54 16:54 WBC 18.6 H RBC 3.73 Hgb 11.6 L Hct 35.6 L MCV 96 MCH 31.0 MCHC 32.5 RDW 14.4 H Plt Count 258 Lymph % (Auto) Not Reportable Bertie % (Auto) Not Reportable Eos % (Auto) Not Reportable Baso % (Auto) Not Reportable Absolute Neuts (auto) Not Reportable Absolute Lymphs (auto) Not Reportable Absolute Monos (auto) Not Reportable Absolute Eos (auto) Not Reportable Absolute Basos (auto) Not Reportable Total Counted 100 Seg Neutrophils % Not Reportable Seg Neuts % (Manual) 78 Band Neutrophils % 7 H Lymphocytes % (Manual) 11 L Monocytes % (Manual) 3 Eosinophils % (Manual) 0 Basophils % (Manual) 0 Metamyelocytes % 1 H Abs Neuts (Manual) 16.0 H Abs Lymphs (Manual) 2.0 Abs Monocytes (Manual) 0.6 Absolute Eos (Manual) 0.0 Abs Basophils (Manual) 0.0 Clumped Platelets PRESENT Platelet Comment ADEQUATE Polychromasia SLIGHT Carbonic Acid HCO3/H2CO3 Ratio ABG pH ABG pCO2 ABG pO2 ABG HCO3 ABG Total CO2 ABG O2 Saturation ABG Base Excess FiO2 Sodium 138.4 Potassium 4.8 Chloride 102 Carbon Dioxide 27 Anion Gap 9 BUN 15 Creatinine 1.01 Est GFR ( Amer) > 60 Est GFR (MDRD) Non-Af 54 L Glucose 140 H Calcium 8.9 Total Bilirubin 0.5 Direct Bilirubin 0.2 Neonat Total Bilirubin Not Reportable Neonat Direct Bilirubin Not Reportable Neonat Indirect Bili Not Reportable AST 38 H ALT 16 Alkaline Phosphatase 107 Creatine Kinase 54 CK-MB (CK-2) 0.98 Troponin I < 0.012 NT-Pro-B Natriuret Pep 1930 H Total Protein 7.3 Albumin 4.0 Urine Color Urine Appearance Urine pH Ur Specific [place] Urine Protein Urine Glucose (UA) Urine Ketones Urine Blood Urine Nitrite Urine Bilirubin Urine Urobilinogen Ur Leukocyte Esterase Urine WBC (Auto) Squamous Epi Cells Auto Urine Mucus (Auto) Urine Ascorbic Acid 08/24/19 08/24/19 08/25/19 19:12 20:52 00:58 WBC RBC Hgb Hct MCV MCH MCHC RDW Plt Count Lymph % (Auto) Bertie % (Auto) Eos % (Auto) Baso % (Auto) Absolute Neuts (auto) Absolute Lymphs (auto) Absolute Monos (auto) Absolute Eos (auto) Absolute Basos (auto) Total Counted Seg Neutrophils % Seg Neuts % (Manual) Band Neutrophils % Lymphocytes % (Manual) Monocytes % (Manual) Eosinophils % (Manual) Basophils % (Manual) Metamyelocytes % Abs Neuts (Manual) Abs Lymphs (Manual) Abs Monocytes (Manual) Absolute Eos (Manual) Abs Basophils (Manual) Clumped Platelets Platelet Comment Polychromasia Carbonic Acid 1.67 H HCO3/H2CO3 Ratio 16:1 ABG pH 7.32 L ABG pCO2 55.6 H ABG pO2 55.2 L ABG HCO3 27.7 H ABG Total CO2 29.5 H ABG O2 Saturation 85.6 L ABG Base Excess 0.9 FiO2 40% Sodium Potassium Chloride Carbon Dioxide Anion Gap BUN Creatinine Est GFR ( Amer) Est GFR (MDRD) Non-Af Glucose Calcium Total Bilirubin Direct Bilirubin Neonat Total Bilirubin Neonat Direct Bilirubin Neonat Indirect Bili AST ALT Alkaline Phosphatase Creatine Kinase CK-MB (CK-2) Troponin I 0.121 0.263 NT-Pro-B Natriuret Pep Total Protein Albumin Urine Color Urine Appearance Urine pH Ur Specific [place] Urine Protein Urine Glucose (UA) Urine Ketones Urine Blood Urine Nitrite Urine Bilirubin Urine Urobilinogen Ur Leukocyte Esterase Urine WBC (Auto) Squamous Epi Cells Auto Urine Mucus (Auto) Urine Ascorbic Acid 08/25/19 08/25/19 08/25/19 07:36 07:36 07:36 WBC 10.7 H RBC 3.08 L Hgb 9.7 L Hct 29.2 L MCV 95 MCH 31.3 MCHC 33.1 RDW 14.4 H Plt Count 176 Lymph % (Auto) Bertie % (Auto) Eos % (Auto) Baso % (Auto) Absolute Neuts (auto) Absolute Lymphs (auto) Absolute Monos (auto) Absolute Eos (auto) Absolute Basos (auto) Total Counted Seg Neutrophils % Seg Neuts % (Manual) Band Neutrophils % Lymphocytes % (Manual) Monocytes % (Manual) Eosinophils % (Manual) Basophils % (Manual) Metamyelocytes % Abs Neuts (Manual) Abs Lymphs (Manual) Abs Monocytes (Manual) Absolute Eos (Manual) Abs Basophils (Manual) Clumped Platelets Platelet Comment Polychromasia Carbonic Acid HCO3/H2CO3 Ratio ABG pH ABG pCO2 ABG pO2 ABG HCO3 ABG Total CO2 ABG O2 Saturation ABG Base Excess FiO2 Sodium 138.0 Potassium 4.0 Chloride 102 Carbon Dioxide 30 Anion Gap 6 BUN 20 Creatinine 1.39 H Est GFR ( Amer) 45 L Est GFR (MDRD) Non-Af 37 L Glucose 84 Calcium 8.4 Total Bilirubin Direct Bilirubin Neonat Total Bilirubin Neonat Direct Bilirubin Neonat Indirect Bili AST ALT Alkaline Phosphatase Creatine Kinase CK-MB (CK-2) Troponin I 0.205 NT-Pro-B Natriuret Pep Total Protein Albumin Urine Color Urine Appearance Urine pH Ur Specific [place] Urine Protein Urine Glucose (UA) Urine Ketones Urine Blood Urine Nitrite Urine Bilirubin Urine Urobilinogen Ur Leukocyte Esterase Urine WBC (Auto) Squamous Epi Cells Auto Urine Mucus (Auto) Urine Ascorbic Acid 08/25/19 08/25/19 13:44 15:05 WBC RBC Hgb Hct MCV MCH MCHC RDW Plt Count Lymph % (Auto) Bertie % (Auto) Eos % (Auto) Baso % (Auto) Absolute Neuts (auto) Absolute Lymphs (auto) Absolute Monos (auto) Absolute Eos (auto) Absolute Basos (auto) Total Counted Seg Neutrophils % Seg Neuts % (Manual) Band Neutrophils % Lymphocytes % (Manual) Monocytes % (Manual) Eosinophils % (Manual) Basophils % (Manual) Metamyelocytes % Abs Neuts (Manual) Abs Lymphs (Manual) Abs Monocytes (Manual) Absolute Eos (Manual) Abs Basophils (Manual) Clumped Platelets Platelet Comment Polychromasia Carbonic Acid HCO3/H2CO3 Ratio ABG pH ABG pCO2 ABG pO2 ABG HCO3 ABG Total CO2 ABG O2 Saturation ABG Base Excess FiO2 Sodium Potassium Chloride Carbon Dioxide Anion Gap BUN Creatinine Est GFR ( Amer) Est GFR (MDRD) Non-Af Glucose Calcium Total Bilirubin Direct Bilirubin Neonat Total Bilirubin Neonat Direct Bilirubin Neonat Indirect Bili AST ALT Alkaline Phosphatase Creatine Kinase CK-MB (CK-2) Troponin I 0.098 NT-Pro-B Natriuret Pep Total Protein Albumin Urine Color STRAW Urine Appearance CLEAR Urine pH 6.0 Ur Specific [place] 1.012 Urine Protein NEGATIVE Urine Glucose (UA) NEGATIVE Urine Ketones NEGATIVE Urine Blood NEGATIVE Urine Nitrite NEGATIVE Urine Bilirubin NEGATIVE Urine Urobilinogen NEGATIVE Ur Leukocyte Esterase NEGATIVE Urine WBC (Auto) 1 Squamous Epi Cells Auto 1 Urine Mucus (Auto) RARE Urine Ascorbic Acid NEGATIVE PHYSICAL EXAMINATION: The patient is mildly obese. The patient no acute distress. Selected Entries 08/25/19 08:00 Temperature 98.1 F Temperature Oral Source Pulse Rate 68 Respiratory 20 Rate Blood Pressure 134/47 H [Right Upper Arm] Blood Pressure 76 Mean [Right Upper Arm] Blood Pressure Supine Position [Right Upper Arm] Blood Pressure 134 Systolic [Right Upper Arm] O2 Sat by Pulse 93 Oximetry Oxygen Delivery Nasal Cannula Method ( includes room air) Oxygen Flow 4 Rate HEAD: Atraumatic, normocephalic. EYES: Pupils equal round and reactive to light, extraocular movements intact, sclera anicteric, conjunctiva are normal. ENT: TMs normal, nares patent, oropharynx clear without exudates. Moist mucous membranes. No oral ulcerations or bleeding gums noted NECK: supple without lymphadenopathy. Trachea is central. No cervical or axillary lymphadenopathy noted. Carotids are 2+, JVD WNL LUNGS: Respiration seems nonlabored. There is diminished air entry and prolonged expiration. On percussion of there is hyperresonance. There is a few very rare scattered rhonchi. There is no wheezing. There is no wet or dry rales. There is no rales of CHF. CHEST: Palpation of the chest wall shows no significant chest wall tenderness. No other significant abnormalities noted. HEART: [place] [employer], No PSH, 1/6 DO[place] aortic area, 1/6 [place] systolic murmur mitral area, no rubs, no gallops. ABDOMEN: Soft, no significant tenderness appreciated, normoactive bowel sounds. No guarding, no rebound. No rigidity noted . No masses appreciated. EXTREMITIES: Pedal pulses are 1-2+, no calf tenderness noted. No clubbing or cyanosis. There is right, slightly greater than left and trace pedal edema pedal edema noted. There is no cyanosis or clubbing. There is no DVT or cellulitis. NEUROLOGICAL: Focused neurological exam showed no significant neurologic deficit. Normal speech, no focal weakness appreciated. PSYCH: Normal mood, normal affect. Judgment and insight within normal limits. SKIN: No significant ecchymosis, skin is noted to be warm. MUSCULOSKELETAL EXAM: No significant acute joint swelling noted. EKG: Sinus rhythm. Left bundle branch block pattern. There is no Sokolow criteria for acute ischemia or AL Chest X-Ray 08/24/19 16:23 IMPRESSION: Chronic lung changes with no acute cardiopulmonary findings. Chest X-Ray 08/25/19 06:00 IMPRESSION: Emphysematous change without definite evidence of acute cardiopulmonary process. No findings to suggest CHF. ECHO cardiogram: There is no LVH. Left ventricular ejection fraction is normal. There is LV diastolic dysfunction. There is mild to moderate tricuspid regurgitation with severe pulmonary hypertension right ventricle systolic pressure 62 to 67 mmHg. There is mild mitral regurgitation. There is no aortic stenosis or aortic regurgitation. Please refer to report. IMPRESSION/RECOMMENDATION: 1. Elevated troponin secondary to acute exacerbation of COPD/bronchitis, acute renal insufficiency, and hypoxemia. This is a type II myocardial infarction secondary to supply demand mismatch. No definite evidence of non-ST elevation AL. Note the troponin I is peaked and is now come down to indeterminate range. 2. Chest pressure relieved on sitting up represents patient's symptoms of GERD. No definite symptoms are typical or atypical anginal symptoms. 3. Acute on chronic respiratory failure: Improved on current treatment. 4. Acute exacerbation of COPD. Possible bronchitis infective. Continue antibiotics. 5. Acute on chronic renal insufficiency: Patient is present with a GFR 37 mL/min. [CKD stage III]. 6. Hypertension: Blood pressure well controlled. Continue current medications. 7. Severe pulmonary hypertension: Continue DAYSI inhibitors, increase as tolerated. Note in February 2019 the patient's echo LV ejection fraction was reported as 40% to 45%. In view of this patient was on Coreg. At present the patient's LV ejection fraction is normal. Hence would recommend change to calcium channel elise. We will start the patient on Cardizem 60 mg p.o. every 8 hours. And subsequently convert it to a long-acting Cardizem preparation. 8. Coronary artery disease: Most likely no significant severity of coronary artery disease. Continue nitrates. Continue aspirin. 9. History of asthma and COPD: Continue current respiratory treatments as mentioned earlier. 10. Obstructive sleep apnea: Continue CPAP at night. 11. GERD: Continue proton pump inhibitors. If symptoms symptoms persist consider adding sucralfate. 12. Chronic left bundle branch block pattern: There is no Sokolow criteria for acute AL or acute ischemia. Medications reviewed management plan discussed with the oxyacetylene burner. Medical decision making is of high complexity. 60 minutes spent on this patient more than 50% of time spent in direct patient care. Will follow.
[2019-08-25] MEDS: VANCOMYCIN HCL 1,000 MG in DEXTROSE 5%-WATER 250 ML IV SCH (21:12)
[2019-08-26] MEDS: ACETAMINOPHEN 325 MG TABLET PO PRN (00:27)
[2019-08-26] MEDS: DILTIAZEM HCL 60 MG TABLET PO SCH ×4 (05:38→22:57)
[2019-08-26 08:56] LABS: ABSOLUTE BASOPHILS # (AUTO) 0.1 10^3/uL (0.0-0.2); ABSOLUTE EOSINOPHILS # (AUTO) 0.3 10^3/uL (0.0-0.6); ABSOLUTE LYMPHOCYTES (AUTO) 2.2 10^3/uL (0.5-4.7); ABSOLUTE MONOCYTES (AUTO) 0.8 10^3/uL (0.1-1.4); ABSOLUTE NEUT (AUTO) 6.2 10^3/uL (1.7-8.2); BASOPHILS % (AUTO) 0.6 % (0-2); EOSINOPHILS % (AUTO) 2.7 % (0-6); HEMATOCRIT 31.2 % (36.0-47.0); HEMOGLOBIN 10.4 g/dL (12.0-15.5); LYMPHOCYTES % (AUTO) 23.4 % (13-45); MEAN CORPUSCULAR HEMOGLOBIN 31.3 pg (27.0-33.4); MEAN CORPUSCULAR HGB CONC 33.3 g/dL (32.0-36.0); MEAN CORPUSCULAR VOLUME 94 fl (80-97); MONOCYTES % (AUTO) 8.5 % (3-13); PLATELET COUNT 198 10^3/uL (150-450); RED BLOOD COUNT 3.32 10^6/uL (3.72-5.28); RED CELL DISTRIBUTION WIDTH 14.3 % (11.5-14.0); SEGMENTED NEUTROPHILS % (AUTO) 64.8 % (42-78); TOTAL CELLS COUNTED % (AUTO) 100 %; WHITE BLOOD COUNT 9.5 10^3/uL (4.0-10.5)
[2019-08-26 09:15] LABS: ANION GAP 7 (5-19); BLOOD UREA NITROGEN 22 mg/dL (7-20); CARBON DIOXIDE 31 mmol/L (22-30); CHLORIDE 101 mmol/L (98-107); GLUCOSE 109 mg/dL (75-110); POTASSIUM 4.2 mmol/L (3.6-5.0)
[2019-08-26] MEDS: LISINOPRIL 5 MG TABLET PO SCH (09:19)
[2019-08-26] MEDS: OXYCODONE-ACETAMINOPHEN 5-325 MG TABLET PO PRN ×2 (09:19→22:03)
[2019-08-26] MEDS: ENOXAPARIN SODIUM INJ 40 MG/0.4 ML DISP.SYRIN SUBCUT SCH (09:19)
[2019-08-26] MEDS: CEFEPIME 2 GM/D5W RTU 2 GM/50 ML RTUPB IV SCH ×2 (12:56→23:40)
--- NOTE | 2019-08-26 13:11 | PDOC PROGRESS REPORT ---
Subjective Progress Note for:: 08/26/19 Subjective:: The patient was downgraded from the ICU yesterday. She is resting comfortably. She is not short of breath while eating lunch. Reason For Visit: ACUTE HYPOXIC RESPIRATORY FAILURE,ACUTE DECOMPENSA Physical Exam Vital Signs: Temp Pulse Resp BP Pulse Ox 97.7 F 56 L 20 143/48 H 95 08/26/19 09:06 08/26/19 09:06 08/26/19 09:06 08/26/19 09:06 08/26/19 09:06 Intake & Output 08/25/19 08/26/19 08/27/19 06:59 06:59 06:59 Intake Total 120 910 Output Total 650 900 Balance -530 10 Weight 84.5 kg 84.4 kg General appearance: PRESENT: no acute distress, cooperative, well-developed Head exam: PRESENT: atraumatic, normocephalic Ear exam: PRESENT: normal external ear exam. ABSENT: bleeding, drainage Respiratory exam: PRESENT: decreased breath sounds - At both bases, unlabored. ABSENT: accessory muscle use, rales, rhonchi, wheezes Cardiovascular exam: PRESENT: RRR, +S1, +S2 GI/Abdominal exam: PRESENT: normal bowel sounds, soft. ABSENT: distended, tenderness Extremities exam: ABSENT: calf tenderness, pedal edema Musculoskeletal exam: PRESENT: normal inspection Neurological exam: PRESENT: alert, awake, oriented to person, oriented to place, oriented to time, oriented to situation, CN II-XII grossly intact Psychiatric exam: PRESENT: appropriate affect. ABSENT: agitated, anxious Skin exam: PRESENT: dry, normal color, warm. ABSENT: rash Results Laboratory Results: 08/26/19 08:47 08/26/19 08:47 08/25/19 08/26/19 08/26/19 15:05 08:47 08:47 WBC 9.5 RBC 3.32 L Hgb 10.4 L Hct 31.2 L MCV 94 MCH 31.3 MCHC 33.3 RDW 14.3 H Plt Count 198 Seg Neutrophils % 64.8 Sodium 138.9 Potassium 4.2 Chloride 101 Carbon Dioxide 31 H Anion Gap 7 BUN 22 H Creatinine 1.11 Est GFR ( Amer) 58 L Glucose 109 Calcium 9.0 Urine Color STRAW Urine Appearance CLEAR Urine pH 6.0 Ur Specific [place] 1.012 Urine Protein NEGATIVE Urine Glucose (UA) NEGATIVE Urine Ketones NEGATIVE Urine Blood NEGATIVE Urine Nitrite NEGATIVE Ur Leukocyte Esterase NEGATIVE Urine WBC (Auto) 1 08/24/19 08/24/19 08/24/19 16:54 16:54 19:12 Creatine Kinase 54 CK-MB (CK-2) 0.98 Troponin I < 0.012 0.121 NT-Pro-B Natriuret Pep 1930 H 08/25/19 08/25/19 08/25/19 00:58 07:36 13:44 Creatine Kinase CK-MB (CK-2) Troponin I 0.263 0.205 0.098 NT-Pro-B Natriuret Pep Impressions: Chest X-Ray 08/25/19 06:00 IMPRESSION: Emphysematous change without definite evidence of acute cardiopulmonary process. No findings to suggest CHF. Assessment and Plan - Diagnosis (1) Acute respiratory failure with hypoxia Is this a current diagnosis for this admission?: Yes (2) Healthcare-associated pneumonia Is this a current diagnosis for this admission?: Yes (3) COPD (chronic obstructive pulmonary disease) Is this a current diagnosis for this admission?: Yes (4) Acute on chronic diastolic (congestive) heart failure Is this a current diagnosis for this admission?: Yes (5) ANASTASIA (acute kidney injury) Is this a current diagnosis for this admission?: Yes (6) CAD (coronary artery disease) Qualifiers: Coronary Disease-Associated Artery/Lesion type: [place] artery Is this a current diagnosis for this admission?: Yes (7) Type 2 diabetes mellitus Qualifiers: Diabetes mellitus residential insulin use: without meterman use Is this a current diagnosis for this admission?: Yes - Plan Summary Summary: 08/26/2019- The patient downgraded from the ICU yesterday. Her acute on chronic respiratory failure is improving. She is currently on nasal cannula. Slightly higher liter flow than at home. She feels that she is approximately 50% back to baseline. We will continue antibiotics for the healthcare acquired pneumonia. Ongoing nebulizer treatments for COPD. We will initiate return to her Trelegy inhaler. Heart failure-Dr. Romano repeated an echocardiogram. Her ejection fraction is significantly increased from previously. He is going to stop the carvedilol and initiate diltiazem therapy. We will continue cardiac/diabetic diet, DVT prophylaxis with Lovenox and monitor Accu-Cheks for diabetes. - Time Time Spent with patient: 15-24 minutes Medications reviewed and adjusted accordingly: Yes
[2019-08-26] MEDS: CARBOXYMETHYLCELLULOSE SOD 0.5% 0.4 ML DROPERETTE OU PRN ×2 (17:36→23:47)
[2019-08-26] MEDS: VANCOMYCIN HCL 1,000 MG in DEXTROSE 5%-WATER 250 ML IV SCH (21:56)
[2019-08-26] MEDS: ATORVASTATIN CALCIUM 10 MG TABLET PO SCH (21:56)
[2019-08-27] MEDS: OXYCODONE-ACETAMINOPHEN 5-325 MG TABLET PO PRN ×4 (04:41→17:46)
[2019-08-27] MEDS: DILTIAZEM HCL 60 MG TABLET PO SCH (05:38)
[2019-08-27 09:06] LABS: ABSOLUTE BASOPHILS # (AUTO) 0.2 10^3/uL (0.0-0.2); ABSOLUTE EOSINOPHILS # (AUTO) 0.3 10^3/uL (0.0-0.6); ABSOLUTE LYMPHOCYTES (AUTO) 2.6 10^3/uL (0.5-4.7); ABSOLUTE MONOCYTES (AUTO) 0.8 10^3/uL (0.1-1.4); ABSOLUTE NEUT (AUTO) 6.3 10^3/uL (1.7-8.2); BASOPHILS % (AUTO) 1.7 % (0-2); EOSINOPHILS % (AUTO) 2.5 % (0-6); HEMATOCRIT 30.5 % (36.0-47.0); LYMPHOCYTES % (AUTO) 25.7 % (13-45); MEAN CORPUSCULAR HEMOGLOBIN 30.6 pg (27.0-33.4); MEAN CORPUSCULAR HGB CONC 32.9 g/dL (32.0-36.0); MEAN CORPUSCULAR VOLUME 93 fl (80-97); MONOCYTES % (AUTO) 7.8 % (3-13); RED BLOOD COUNT 3.28 10^6/uL (3.72-5.28); RED CELL DISTRIBUTION WIDTH 13.7 % (11.5-14.0); SEGMENTED NEUTROPHILS % (AUTO) 62.3 % (42-78); TOTAL CELLS COUNTED % (AUTO) 100 %; WHITE BLOOD COUNT 10.1 10^3/uL (4.0-10.5)
[2019-08-27] MEDS: IPRATROPIUM/ALBUTEROL 0.5-2.5 MG/3 ML AMPUL NEB PRN (09:09)
[2019-08-27 09:29] LABS: PLATELET COUNT 205 10^3/uL (150-450)
[2019-08-27 09:42] LABS: ANION GAP 9 (5-19); BLOOD UREA NITROGEN 19 mg/dL (7-20); CALCIUM 9.5 mg/dL (8.4-10.2); CARBON DIOXIDE 29 mmol/L (22-30); CHLORIDE 99 mmol/L (98-107); GLUCOSE 134 mg/dL (75-110); POTASSIUM 4.4 mmol/L (3.6-5.0)
[2019-08-27] MEDS: CARBOXYMETHYLCELLULOSE SOD 0.5% 0.4 ML DROPERETTE OU PRN ×2 (10:33→16:41)
[2019-08-27] MEDS: FLUTICASONE/UMECLIDIN/VILANTER 100-62.5-25 MCG/DOSE IH SCH (10:34)
[2019-08-27] MEDS: LISINOPRIL 5 MG TABLET PO SCH (10:35)
[2019-08-27] MEDS: ENOXAPARIN SODIUM INJ 40 MG/0.4 ML DISP.SYRIN SUBCUT SCH (10:35)
[2019-08-27] MEDS: ASPIRIN 81 MG TABLET, ENT COATED PO SCH (10:35)
[2019-08-27] MEDS: ACETAMINOPHEN 325 MG TABLET PO PRN (10:38)
--- NOTE | 2019-08-27 11:53 | PDOC PROGRESS REPORT ---
Subjective Progress Note for:: 08/27/19 Subjective:: The patient is resting comfortably. She reports that she feels "okay ". She is at 4 L nasal cannula now and we will try to taper to 3 L which is her baseline. I instructed the nurse to keep the oxygen saturation less than 95%. 90 to 94% is ideal. Reason For Visit: ACUTE HYPOXIC RESPIRATORY FAILURE,ACUTE DECOMPENSA Physical Exam Vital Signs: Temp Pulse Resp BP Pulse Ox 97.6 F 65 16 142/60 H 96 08/27/19 00:25 08/27/19 09:10 08/27/19 09:10 08/27/19 00:25 08/27/19 09:10 Intake & Output 08/26/19 08/27/19 08/28/19 06:59 06:59 06:59 Intake Total 910 1047 Output Total 900 200 Balance 10 847 Weight 84.4 kg 83.9 kg General appearance: PRESENT: no acute distress, cooperative, obese, well- developed Head exam: PRESENT: atraumatic, normocephalic Respiratory exam: PRESENT: clear to auscultation chago, symmetrical, unlabored. ABSENT: accessory muscle use, rales, rhonchi, tachypnea, wheezes Cardiovascular exam: PRESENT: RRR, +S1, +S2 GI/Abdominal exam: PRESENT: diminished bowel sounds - Likely due to body habitus, soft. ABSENT: distended - Protuberant, tenderness Musculoskeletal exam: PRESENT: ambulatory - Limited with COPD. Neurological exam: PRESENT: alert, awake, oriented to person, oriented to place, oriented to time, oriented to situation, CN II-XII grossly intact Psychiatric exam: PRESENT: appropriate affect, normal mood. ABSENT: agitated, anxious Focused psych exam: ABSENT: delusional, restlessness Results Laboratory Results: 08/27/19 08:42 08/27/19 08:42 08/26/19 08/27/19 08/27/19 08:47 08:42 08:42 WBC 10.1 RBC 3.28 L Hgb 10.0 L Hct 30.5 L MCV 93 MCH 30.6 MCHC 32.9 RDW 13.7 Plt Count 205 Seg Neutrophils % 62.3 Sodium 136.9 L Potassium 4.4 Chloride 99 Carbon Dioxide 29 Anion Gap 9 BUN 19 Creatinine 0.95 Est GFR ( Amer) > 60 Glucose 134 H Calcium 9.5 Magnesium 1.7 08/24/19 08/24/19 08/24/19 16:54 16:54 19:12 Creatine Kinase 54 CK-MB (CK-2) 0.98 Troponin I < 0.012 0.121 NT-Pro-B Natriuret Pep 1930 H 08/25/19 08/25/19 08/25/19 00:58 07:36 13:44 Creatine Kinase CK-MB (CK-2) Troponin I 0.263 0.205 0.098 NT-Pro-B Natriuret Pep Impressions: Chest X-Ray 08/25/19 06:00 IMPRESSION: Emphysematous change without definite evidence of acute cardiopulmonary process. No findings to suggest CHF. Assessment and Plan - Diagnosis (1) Acute respiratory failure with hypoxia Is this a current diagnosis for this admission?: Yes (2) Healthcare-associated pneumonia Is this a current diagnosis for this admission?: Yes (3) COPD (chronic obstructive pulmonary disease) Is this a current diagnosis for this admission?: Yes (4) Acute on chronic diastolic (congestive) heart failure Is this a current diagnosis for this admission?: Yes (5) ANASTASIA (acute kidney injury) Is this a current diagnosis for this admission?: Yes (6) CAD (coronary artery disease) Qualifiers: Coronary Disease-Associated Artery/Lesion type: [place] artery Is this a current diagnosis for this admission?: Yes (7) Type 2 diabetes mellitus Qualifiers: Diabetes mellitus intermediate manager insulin use: without intermediate manager use Is this a current diagnosis for this admission?: Yes - Plan Summary Summary: 08/26/2019- The patient downgraded from the ICU yesterday. Her acute on chronic respiratory failure is improving. She is currently on nasal cannula. Slightly higher liter flow than at home. She feels that she is approximately 50% back to baseline. We will continue antibiotics for the healthcare acquired pneumonia. Ongoing nebulizer treatments for COPD. We will initiate return to her Trelegy inhaler. Heart failure-Dr. Romano repeated an echocardiogram. Her ejection fraction is significantly increased from previously. He is going to stop the carvedilol and initiate diltiazem therapy. We will continue cardiac/diabetic diet, DVT prophylaxis with Lovenox and monitor Accu-Cheks for diabetes. 08/27/2019- Acute on chronic respiratory failure-the patient is down to 4 L nasal cannula. She is on 3 L at home. She states that she does get somewhat short of breath when walking to the bathroom. She will likely benefit from pulmonary rehab. She has been started on home home inhaler but still has nebulizer treatments available as needed. We will try to taper oxygen and keep her saturation between 90 and 94%. Pneumonia-continue antibiotic therapy. Heart failure-the patient is now on diltiazem extended release [address] Romano. Continue same regimen. She had a positive fluid balance yeste rday. Will monitor closely. Accu-Cheks are quite good. Continue current regimen for diabetes. I will have physical therapy see the patient. She would benefit from home health with physical therapy. I am also going to suggest pulmonary rehab. - Time Time Spent with patient: 15-24 minutes Medications reviewed and adjusted accordingly: Yes Anticipated discharge: Home with Homehealth Within: within 24 hours
[2019-08-27] MEDS: DILTIAZEM HCL 120 MG CAP.SR.24H PO SCH (12:32)
[2019-08-27] MEDS: CEFEPIME 2 GM/D5W RTU 2 GM/50 ML RTUPB IV SCH ×2 (12:33→23:15)
[2019-08-27] MEDS: VANCOMYCIN HCL 1,000 MG in DEXTROSE 5%-WATER 250 ML IV SCH (21:11)
[2019-08-27] MEDS: ATORVASTATIN CALCIUM 10 MG TABLET PO SCH (21:11)
--- NOTE | 2019-08-27 21:11 | Progress Note ---
Provider Note Provider Note: CARDIOLOGY PROGRESS NOTE by Dr. Victorina Maradiaga on 08/26/2019. SUBJECTIVE: The patient denies any chest pain or discomfort. There is no shortness of breath. There is no PND orthopnea. There is no leg edema. There is no TIA CVA symptoms. There is no arrhythmia seen on the monitor. Physical EXAMINATION: The patient is moderately obese. In no acute distress. Selected Entries 08/26/19 12:32 Temperature 98.3 F Temperature Oral Source Pulse Rate 52 L Respiratory 20 Rate Blood Pressure 116/59 L Blood Pressure 78 Mean BP Location Left Arm BP Position Supine O2 Sat by Pulse 99 Oximetry Oxygen Flow 4.00 Rate Oxygen Delivery Nasal Cannula Method HEAD: Atraumatic, normocephalic. EYES: Pupils equal round and reactive to light, extraocular movements intact, sclera anicteric, conjunctiva are normal. ENT: TMs normal, nares patent, oropharynx clear without exudates. Moist mucous membranes. No oral ulcerations or bleeding gums noted NECK: supple without lymphadenopathy. Trachea is central. No cervical or axillary lymphadenopathy noted. Carotids are 2+, JVD WNL LUNGS: Respiration seems nonlabored. There is diminished air entry and prolonged expiration. On percussion of there is hyperresonance. There is a few very rare scattered rhonchi. There is no wheezing. There is no wet or dry rales. There is no rales of CHF. CHEST: Palpation of the chest wall shows no significant chest wall tenderness. No other significant abnormalities noted. HEART: [place] [employer], No PSH, 1/6 [place]YLE aortic area, 1/6 [place] systolic murmur mitral area, no rubs, no gallops. ABDOMEN: Soft, no significant tenderness appreciated, normoactive bowel sounds. No guarding, no rebound. No rigidity noted . No masses appreciated. EXTREMITIES: Pedal pulses are 1-2+, no calf tenderness noted. No clubbing or cyanosis. There is right, slightly greater than left and trace pedal edema pedal edema noted. There is no cyanosis or clubbing. There is no DVT or cellulitis. NEUROLOGICAL: Focused neurological exam showed no significant neurologic deficit. Normal speech, no focal weakness appreciated. PSYCH: Normal mood, normal affect. Judgment and insight within normal limits. SKIN: No significant ecchymosis, skin is noted to be warm. MUSCULOSKELETAL EXAM: No significant acute joint swelling noted. Labs- All tests 24 hr 08/26/19 08/26/19 08/26/19 08:47 08:47 08:47 WBC 9.5 RBC 3.32 L Hgb 10.4 L Hct 31.2 L MCV 94 MCH 31.3 MCHC 33.3 RDW 14.3 H Plt Count 198 Lymph % (Auto) 23.4 [place] % (Auto) 8.5 Eos % (Auto) 2.7 Baso % (Auto) 0.6 Absolute Neuts (auto) 6.2 Absolute Lymphs (auto) 2.2 Absolute Monos (auto) 0.8 Absolute Eos (auto) 0.3 Absolute Basos (auto) 0.1 Seg Neutrophils % 64.8 Sodium 138.9 Potassium 4.2 Chloride 101 Carbon Dioxide 31 H Anion Gap 7 BUN 22 H Creatinine 1.11 Est GFR ( Amer) 58 L Est GFR (MDRD) Non-Af 48 L Glucose 109 Calcium 9.0 Magnesium 1.7 Chest X-Ray 08/24/19 16:23 IMPRESSION: Chronic lung changes with no acute cardiopulmonary findings. Chest X-Ray 08/25/19 06:00 IMPRESSION: Emphysematous change without definite evidence of acute cardiopulmonary process. No findings to suggest CHF. IMPRESSION/RECOMMENDATION: 1. Elevated troponin secondary to acute exacerbation of COPD/bronchitis, acute renal insufficiency, and hypoxemia. This is a type II myocardial infarction secondary to supply demand mismatch. No definite evidence of non-ST elevation [place]. Note the troponin I is peaked and is now come down to indeterminate range. 2. Chest pressure relieved on sitting up represents patient's symptoms of GERD. No definite symptoms are typical or atypical anginal symptoms. 3. Acute on chronic respiratory failure: Improved on current treatment. 4. Acute exacerbation of COPD. Possible bronchitis infective. Continue antibiotics. 5. Acute on chronic renal insufficiency: Patient is present with a GFR 37 mL/min. [CKD stage III]. 6. Hypertension: Blood pressure well controlled. Continue current medications. 7. Severe pulmonary hypertension: Continue DAYSI inhibitors, increase as tolerated. Note in February 2019 the patient's echo LV ejection fraction was reported as 40% to 45%. In view of this patient was on Coreg. At present the patient's LV ejection fraction is normal. Hence would recommend change to calcium channel elise. We will start the patient on Cardizem 60 mg p.o. every 8 hours. And subsequently convert it to a long-acting Cardizem preparation. Note the patient did not receive some of the doses of Cardizem due to low heart rate. This will decrease the Cardizem to 30 mg p.o. 3 times daily from tomorrow. 8. Coronary artery disease: Most likely no significant severity of coronary artery disease. Continue nitrates. Continue aspirin. 9. History of asthma and COPD: Continue current respiratory treatments as mentioned earlier. 10. Obstructive sleep apnea: Continue CPAP at night. 11. GERD: Continue proton pump inhibitors. If symptoms symptoms persist consider adding sucralfate. 12. Chronic left bundle branch block pattern: There is no Sokolow criteria for acute [place] or acute ischemia. MEDICATIONS reviewed. Medications adjusted. Management plan discussed with attending for provider on the case. Medical decision making is of high complexity. 40 minutes spent on this patient with more than 50% of time spent under patient care. Will follow.
--- NOTE | 2019-08-27 21:18 | Progress Note ---
Provider Note Provider Note: CARDIOLOGY PROGRESS NOTE by Dr. Victorina Romano on 08/27/2019. SUBJECTIVE: The patient states that shortness of breath is much improved. There is no chest pain or discomfort. There is no shortness of breath. She denies any PND orthopnea or leg edema. There is no TIA CVA symptoms. There is no arrhythmia seen on the monitor. Physical EXAMINATION: The patient is mild to moderately obese. She is well- groomed in no acute distress. Selected Entries 08/27/19 11:45 Temperature 97.5 F Temperature Oral Source Pulse Rate 58 L Respiratory 16 Rate Blood Pressure 150/59 H Blood Pressure 89 Mean BP Location Left Arm BP Position Sitting O2 Sat by Pulse 93 Oximetry Oxygen Flow 3.00 Rate Oxygen Delivery Nasal Cannula Method HEAD: Atraumatic, normocephalic. EYES: Pupils equal round and reactive to light, extraocular movements intact, sclera anicteric, conjunctiva are normal. ENT: TMs normal, nares patent, oropharynx clear without exudates. Moist mucous membranes. No oral ulcerations or bleeding gums noted NECK: supple without lymphadenopathy. Trachea is central. No cervical or axillary lymphadenopathy noted. Carotids are 2+, JVD WNL LUNGS: Respiration seems nonlabored. There is diminished air entry and prolonged expiration. On percussion of there is hyperresonance. There is a few very rare scattered rhonchi. There is no wheezing. There is no wet or dry rales. There is no rales of CHF. CHEST: Palpation of the chest wall shows no significant chest wall tenderness. No other significant abnormalities noted. HEART: [place] [employer], No PSH, 1/6 [place] aortic area, 1/6 [place] systolic murmur mitral area, no rubs, no gallops. ABDOMEN: Soft, no significant tenderness appreciated, normoactive bowel sounds. No guarding, no rebound. No rigidity noted . No masses appreciated. EXTREMITIES: Pedal pulses are 1-2+, no calf tenderness noted. No clubbing or cyanosis. There is right, slightly greater than left and trace pedal edema pedal edema noted. There is no cyanosis or clubbing. There is no DVT or cellulitis. NEUROLOGICAL: Focused neurological exam showed no significant neurologic deficit. Normal speech, no focal weakness appreciated. PSYCH: Normal mood, normal affect. Judgment and insight within normal limits. SKIN: No significant ecchymosis, skin is noted to be warm. MUSCULOSKELETAL EXAM: No significant acute joint swelling noted. Labs- All tests 24 hr 08/27/19 08/27/19 08/27/19 08:42 08:42 08:42 WBC 10.1 RBC 3.28 L Hgb 10.0 L Hct 30.5 L MCV 93 MCH 30.6 MCHC 32.9 RDW 13.7 Plt Count 205 Lymph % (Auto) 25.7 [place] % (Auto) 7.8 Eos % (Auto) 2.5 Baso % (Auto) 1.7 Absolute Neuts (auto) 6.3 Absolute Lymphs (auto) 2.6 Absolute Monos (auto) 0.8 Absolute Eos (auto) 0.3 Absolute Basos (auto) 0.2 Seg Neutrophils % 62.3 Sodium 136.9 L Potassium 4.4 Chloride 99 Carbon Dioxide 29 Anion Gap 9 BUN 19 Creatinine 0.95 Est GFR ( Amer) > 60 Est GFR (MDRD) Non-Af 58 L Glucose 134 H Calcium 9.5 Magnesium 1.6 Chest X-Ray 08/24/19 16:23 IMPRESSION: Chronic lung changes with no acute cardiopulmonary findings. Chest X-Ray 08/25/19 06:00 IMPRESSION: Emphysematous change without definite evidence of acute cardiopulmonary process. No findings to suggest CHF. IMPRESSION/RECOMMENDATION: 1. Elevated troponin secondary to acute exacerbation of COPD/bronchitis, acute renal insufficiency, and hypoxemia. This is a type II myocardial infarction secondary to supply demand mismatch. No definite evidence of non-ST elevation [place]. Note the troponin I is peaked and is now come down to indeterminate range. 2. Chest pressure relieved on sitting up represents patient's symptoms of GERD. No definite symptoms are typical or atypical anginal symptoms. 3. Acute on chronic respiratory failure: Improved on current treatment. 4. Acute exacerbation of COPD. Possible bronchitis infective. Continue antibiotics. 5. Acute on chronic renal insufficiency: Patient is present with a much improved GFR of 58 mL/min. Hence continue current medication regimen and avoid nephrotoxic drugs. 6. Hypertension: Blood pressure well controlled. Continue current medications. 7. Severe pulmonary hypertension: Continue DAYSI inhibitors, increase as tolerated. Note in February 2019 the patient's echo LV ejection fraction was reported as 40% to 45%. In view of this patient was on Coreg. At present the patient's LV ejection fraction is normal. 8. Coronary artery disease: Most likely no significant severity of coronary artery disease. Continue nitrates. Continue aspirin. 9. History of asthma and COPD: Continue current respiratory treatments as mentioned earlier. 10. Obstructive sleep apnea: Continue CPAP at night. 11. GERD: Continue proton pump inhibitors. If symptoms symptoms persist consider adding sucralfate. 12. Chronic left bundle branch block pattern: There is no Sokolow criteria for acute [place] or acute ischemia. Medications reviewed. Medication changes made. Medication treatment and management plan discussed with the attending provider on the case. Medical decision making is of high complexity. 40 minutes spent on this patient more than 50% of time spent in direct patient care. The patient's cardiac status is stable. Will sign off. And follow the patient as an outpatient. The patient is agreeable to follow-up with me. My cell phone number and my office number/contact numbers given to the patient.
[2019-08-28] MEDS: OXYCODONE-ACETAMINOPHEN 5-325 MG TABLET PO PRN ×3 (07:55→19:07)
[2019-08-28] MEDS: IPRATROPIUM/ALBUTEROL 0.5-2.5 MG/3 ML AMPUL NEB PRN (08:25)
[2019-08-28] MEDS: ENOXAPARIN SODIUM INJ 40 MG/0.4 ML DISP.SYRIN SUBCUT SCH (09:29)
[2019-08-28] MEDS: LISINOPRIL 5 MG TABLET PO SCH (09:29)
[2019-08-28] MEDS: ASPIRIN 81 MG TABLET, ENT COATED PO SCH (09:30)
[2019-08-28] MEDS: DILTIAZEM HCL 120 MG CAP.SR.24H PO SCH (09:31)
[2019-08-28] MEDS: FLUTICASONE/UMECLIDIN/VILANTER 100-62.5-25 MCG/DOSE IH SCH (09:40)
[2019-08-28 10:10] LABS: ABSOLUTE EOSINOPHILS # (AUTO) 0.2 10^3/uL (0.0-0.6); ABSOLUTE LYMPHOCYTES (AUTO) 2.3 10^3/uL (0.5-4.7); ABSOLUTE MONOCYTES (AUTO) 0.9 10^3/uL (0.1-1.4); ABSOLUTE NEUT (AUTO) 7.4 10^3/uL (1.7-8.2); BASOPHILS % (AUTO) 0.2 % (0-2); HEMOGLOBIN 10.3 g/dL (12.0-15.5); LYMPHOCYTES % (AUTO) 21.5 % (13-45); MEAN CORPUSCULAR HEMOGLOBIN 30.6 pg (27.0-33.4); MEAN CORPUSCULAR HGB CONC 33.3 g/dL (32.0-36.0); MEAN CORPUSCULAR VOLUME 92 fl (80-97); MONOCYTES % (AUTO) 8.3 % (3-13); PLATELET COUNT 223 10^3/uL (150-450); RED BLOOD COUNT 3.38 10^6/uL (3.72-5.28); RED CELL DISTRIBUTION WIDTH 14.2 % (11.5-14.0); TOTAL CELLS COUNTED % (AUTO) 100 %; WHITE BLOOD COUNT 10.8 10^3/uL (4.0-10.5)
[2019-08-28 10:50] LABS: ANION GAP 8 (5-19); BLOOD UREA NITROGEN 18 mg/dL (7-20); CALCIUM 9.7 mg/dL (8.4-10.2); CARBON DIOXIDE 30 mmol/L (22-30); CHLORIDE 97 mmol/L (98-107); GLUCOSE 113 mg/dL (75-110); POTASSIUM 4.9 mmol/L (3.6-5.0)
--- NOTE | 2019-08-28 13:04 | EKG REPORT ---
SEVERITY:- ABNORMAL ECG - SINUS OR ECTOPIC ATRIAL RHYTHM LEFT BUNDLE BRANCH BLOCK : Confirmed by: Paras Alvarado MD 28-Aug-2019 13:03:34
--- NOTE | 2019-08-28 13:10 | PDOC PROGRESS REPORT ---
Subjective Progress Note for:: 08/28/19 Subjective:: The patient is feeling close to baseline. She still has a congested cough. I suggested that she would be able to go home with home health for physical therapy. See discussion below. Reason For Visit: ACUTE HYPOXIC RESPIRATORY FAILURE,ACUTE DECOMPENSA Physical Exam Vital Signs: Temp Pulse Resp BP Pulse Ox 97.9 F 72 18 150/68 H 91 L 08/28/19 07:55 08/28/19 08:27 08/28/19 08:27 08/28/19 07:55 08/28/19 08:27 Intake & Output 08/27/19 08/28/19 08/29/19 06:59 06:59 06:59 Intake Total 1047 690 Output Total 200 Balance 847 690 Weight 83.9 kg 83.6 kg General appearance: PRESENT: no acute distress, cooperative, well-developed Respiratory exam: PRESENT: rhonchi - Rhonchorous cough, symmetrical, tachypnea - Mild tachypnea, unlabored. ABSENT: rales Cardiovascular exam: PRESENT: RRR, +S1, +S2 GI/Abdominal exam: PRESENT: normal bowel sounds, soft. ABSENT: distended, tenderness Neurological exam: PRESENT: alert, awake, oriented to person, oriented to place, oriented to time, oriented to situation, CN II-XII grossly intact Psychiatric exam: PRESENT: flat affect. ABSENT: agitated, anxious Results Laboratory Results: 08/28/19 08:55 08/28/19 08:55 08/28/19 08/28/19 08/28/19 08:55 08:55 08:55 WBC 10.8 H RBC 3.38 L Hgb 10.3 L Hct 31.0 L MCV 92 MCH 30.6 MCHC 33.3 RDW 14.2 H Plt Count 223 Seg Neutrophils % 68.0 Sodium 135.3 L Potassium 4.9 Chloride 97 L Carbon Dioxide 30 Anion Gap 8 BUN 18 Creatinine 0.84 Est GFR ( Amer) > 60 Glucose 113 H Calcium 9.7 Magnesium 1.5 L 08/24/19 19:12 Blood Blood Culture - Final Staphylococcus Epidermidis 08/24/19 08/24/19 08/24/19 16:54 16:54 19:12 Creatine Kinase 54 CK-MB (CK-2) 0.98 Troponin I < 0.012 0.121 NT-Pro-B Natriuret Pep 1930 H 08/25/19 08/25/19 08/25/19 00:58 07:36 13:44 Creatine Kinase CK-MB (CK-2) Troponin I 0.263 0.205 0.098 NT-Pro-B Natriuret Pep Impressions: Chest X-Ray 08/25/19 06:00 IMPRESSION: Emphysematous change without definite evidence of acute cardiopulmonary process. No findings to suggest CHF. Assessment and Plan - Diagnosis (1) Acute respiratory failure with hypoxia Is this a current diagnosis for this admission?: Yes (2) Healthcare-associated pneumonia Is this a current diagnosis for this admission?: Yes (3) COPD (chronic obstructive pulmonary disease) Is this a current diagnosis for this admission?: Yes (4) Acute on chronic diastolic (congestive) heart failure Is this a current diagnosis for this admission?: Yes (5) ANASTASIA (acute kidney injury) Is this a current diagnosis for this admission?: Yes (6) CAD (coronary artery disease) Qualifiers: Coronary Disease-Associated Artery/Lesion type: [place] artery Is this a current diagnosis for this admission?: Yes (7) Type 2 diabetes mellitus Qualifiers: Diabetes mellitus usp insulin use: without usp use Is this a current diagnosis for this admission?: Yes - Plan Summary Summary: 08/26/2019- The patient downgraded from the ICU yesterday. Her acute on chronic respiratory failure is improving. She is currently on nasal cannula. Slightly higher liter flow than at home. She feels that she is approximately 50% back to baseline. We will continue antibiotics for the healthcare acquired pneumonia. Ongoing nebulizer treatments for COPD. We will initiate return to her Trelegy inhaler. Heart failure-Dr. Romano repeated an echocardiogram. Her ejection fraction is significantly increased from previously. He is going to stop the carvedilol and initiate diltiazem therapy. We will continue cardiac/diabetic diet, DVT prophylaxis with Lovenox and monitor Accu-Cheks for diabetes. 08/27/2019- Acute on chronic respiratory failure-the patient is down to 4 L nasal cannula. She is on 3 L at home. She states that she does get somewhat short of breath when walking to the bathroom. She will likely benefit from pulmonary rehab. She has been started on home home inhaler but still has nebulizer treatments available as needed. We will try to taper oxygen and keep her saturation betw een 90 and 94%. Pneumonia-continue antibiotic therapy. Heart failure-the patient is now on diltiazem extended release [address] Romano. Continue same regimen. She had a positive fluid balance yesterday. Will monitor closely. Accu-Cheks are quite good. Continue current regimen for diabetes. I will have physical therapy see the patient. She would benefit from home health with physical therapy. I am also going to suggest pulmonary rehab. 08/28/2019- The patient is likely close to baseline with her COPD and acute on chronic respiratory failure. I have asked that pulmonary rehab be arranged. The patient already has nebulizers and CPAP at home. She has 4 more days of IV antibiotics for her pneumonia. Unfortunately she told me that she does not want any but in her house nor does her family. She refused home health services. Congestive heart failure-Dr. Romano is consulting. He has made changes in her medication regimen. I would discuss with cardiology coordination of post discharge medications and follow-up visits Diabetes-continue current regimen including Accu-Cheks and sliding scale Unfortunately the patient is refusing home health. This puts her at high risk for readmission. I did asked the referral be made to pulmonary rehab. It is unclear if the patient will in fact be compliant and follow-up. - Time Time Spent with patient: 15-24 minutes Medications reviewed and adjusted accordingly: Yes Anticipated discharge: Home
[2019-08-28] MEDS: CEFEPIME 2 GM/D5W RTU 2 GM/50 ML RTUPB IV SCH ×2 (13:44→23:11)
[2019-08-28] MEDS: ATORVASTATIN CALCIUM 10 MG TABLET PO SCH (21:35)
[2019-08-28] MEDS: VANCOMYCIN HCL 1,000 MG in DEXTROSE 5%-WATER 250 ML IV SCH (21:35)
[2019-08-28] MEDS ORDERED: PHARMACY COMMUNICATION ORDER MC ONE (21:45)
[2019-08-28 22:19] LABS: VANCOMYCIN,TROUGH 11.6 ug/mL (5.0-20.0)
[2019-08-29] MEDS: ASPIRIN 81 MG TABLET, ENT COATED PO SCH (09:22)
[2019-08-29] MEDS: LISINOPRIL 5 MG TABLET PO SCH (09:23)
[2019-08-29] MEDS: ENOXAPARIN SODIUM INJ 40 MG/0.4 ML DISP.SYRIN SUBCUT SCH (09:24)
[2019-08-29] MEDS: OXYCODONE-ACETAMINOPHEN 5-325 MG TABLET PO PRN ×2 (09:30→14:22)
[2019-08-29] MEDS ORDERED: MAGNESIUM OXIDE 400 MG TABLET PO SCH (10:00)
[2019-08-29] MEDS: DILTIAZEM HCL 120 MG CAP.SR.24H PO SCH (10:30)
[2019-08-29] MEDS: FLUTICASONE/UMECLIDIN/VILANTER 100-62.5-25 MCG/DOSE IH SCH (11:19)
[2019-08-29] MEDS: CEFEPIME 2 GM/D5W RTU 2 GM/50 ML RTUPB IV SCH (11:24)
[2019-08-29] MEDS: IPRATROPIUM/ALBUTEROL 0.5-2.5 MG/3 ML AMPUL NEB PRN (13:26)
[2019-08-29 16:54] VITALS: BP 132/77
--- NOTE | 2019-08-31 16:16 | PDOC DISCHARGE SUMMARY ---
Impression - Admit/DC Date/PCP Admission Date/Primary Care Provider: 08/24/19 19:16 STEVE SCANLON Discharge Date: 08/29/19 - Discharge Diagnosis (1) Acute and chronic respiratory failure with hypoxia Is this a current diagnosis for this admission?: Yes (2) Acute on chronic diastolic (congestive) heart failure Is this a current diagnosis for this admission?: Yes (3) ANASTASIA (acute kidney injury) Is this a current diagnosis for this admission?: Yes (4) CAD (coronary artery disease) Is this a current diagnosis for this admission?: Yes (5) COPD (chronic obstructive pulmonary disease) Is this a current diagnosis for this admission?: Yes (6) Healthcare-associated pneumonia Is this a current diagnosis for this admission?: Yes (7) Type 2 diabetes mellitus Is this a current diagnosis for this admission?: Yes - Additional Information Resuscitation Status: Do Not Resuscitate Discharge Diet: As Tolerated, Cardiac Discharge Activity: Activity As Tolerated, Balance Activity w/Rest, Slowly Increase Activity, Weigh Daily Referrals: WILMAR BENSON FNP-C [Primary Care Provider] - 09/07/19 4:00 pm Prescriptions: Diltiazem HCl [Cardizem Cd 120 mg Capsule] 120 mg PO DAILY #30 cap.sr.24h Magnesium Oxide [Mag-Ox 400 mg Tablet] 400 mg PO DAILY #30 tablet Lisinopril [Prinivil 5 mg Tablet] 2.5 mg PO DAILY #30 tablet Home Medications: Aspirin [Adult Low Dose Aspirin EC] 81 mg PO DAILY 05/08/19 Atorvastatin Calcium [Lipitor 10 mg Tablet] 10 mg PO QHS 05/08/19 Hydrocodone/Acetaminophen [[place] 5-325 mg Tablet] 1 tab PO Q12HP PRN 05/08/19 Fluticasone/Umeclidin/Vilanter [Trelegy 100-62.5-25 Mcg Ellipta 14 Dose/Dpi] 1 each IH DAILY 30 Days #1 inhaler 06/15/19 Furosemide [Lasix 20 mg Tablet] 20 mg PO DAILY tablet 07/06/19 Acetaminophen [Tylenol 325 mg Tablet] 650 mg PO Q4HP PRN tablet 08/29/19 Carboxymethylcellulose Sodium [Refresh Plus 0.5% Oph Soln 0.4 ml Droperette] 1 drop OU QIDP PRN droperette 08/29/19 Diltiazem HCl [Cardizem Cd 120 mg Capsule] 120 mg PO DAILY #30 cap.sr.24h 08/29/19 Lisinopril [Prinivil 5 mg Tablet] 2.5 mg PO DAILY #30 tablet 08/29/19 Magnesium Oxide [Mag-Ox 400 mg Tablet] 400 mg PO DAILY #30 tablet 08/29/19 History of Present Illiness History of Present Illness: Per H&P by Dr. Young: Pt is a 73 yo woman with CHF, COPD,CAD, HTN who presented to the ED yesterday c/o shortness of breath. She had been out of her lasix for three days. In the ED, she was found to be hypoxic and hypertensive. SHe was placed on bipap. She also go lasix and was started on NTG. Today, she is off bipap and her NTG is off. She states her breathing has improved, but she c/o mild chest pain. Hospital Course Hospital Course: 08/26/2019- The patient downgraded from the ICU yesterday. Her acute on chronic respiratory failure is improving. She is currently on nasal cannula. Slightly higher liter flow than at home. She feels that she is approximately 50% back to baseline. We will continue antibiotics for the healthcare acquired pneumonia. Ongoing nebulizer treatments for COPD. We will initiate return to her Trelegy inhaler. Heart failure-Dr. Romano repeated an echocardiogram. Her ejection fraction is significantly increased from previously. He is going to stop the carvedilol and initiate diltiazem therapy. We will continue cardiac/diabetic diet, DVT prophylaxis with Lovenox and monitor Accu-Cheks for diabetes. 08/27/2019- Acute on chronic respiratory failure-the patient is down to 4 L nasal cannula. She is on 3 L at home. She states that she does get somewhat short of breath when walking to the bathroom. She will likely benefit from pulmonary rehab. She has been started on home home inhaler but still has nebulizer treatments available as needed. We will try to taper oxygen and keep her saturation between 90 and 94%. Pneumonia-continue antibiotic therapy. Heart failure-the patient is now on diltiazem extended release [address] Romano. Continue same regimen. She had a positive fluid balance yesterday. Will monitor closely. Accu-Cheks are quite good. Continue current regimen for diabetes. I will have physical therapy see the patient. She would benefit from home health with physical therapy. I am also going to suggest pulmonary rehab. 08/28/2019- The patient is likely close to baseline with her COPD and acute on chronic respiratory failure. I have asked that pulmonary rehab be arranged. The patient already has nebulizers and CPAP at home. She has 4 more days of IV antibiotics for her pneumonia. Unfortunately she told me that she does not want any but in her house nor does her family. She refused home health services. Congestive heart failure-Dr. Romano is consulting. He has made changes in her medication regimen. I would discuss with cardiology coordination of post discharge medications and follow-up visits Diabetes-continue current regimen including Accu-Cheks and sliding scale Unfortunately the patient is refusing home health. This puts her at high risk for readmission. I did asked the referral be made to pulmonary rehab. It is unclear if the patient will in fact be compliant and follow-up. 08/29/19- Patient is now at her baseline respiratory function; now ambulatory on room air. Lung sounds are clear. Patient denies dyspnea, orthopnea, and cough. She, again, denies home health services but is now agreeable to outpatient pulmonary rehabilitation. CHF exacerbation has resolved; lung sounds clear, on room air, no peripheral edema. Cardiology was consulted; she is discharged on diltiazem CD 120 mg daily, furosemide 20 mg daily, lisinopril 5 mg daily, daily aspirin and statin therapy. She has been instructed on a low sodium/fluid restricted diet. She is advised to weigh herself daily and report any weight gain of greater than 2 pounds overnight to her primary care provider. She is discharged home in stable condition. She is instructed to follow-up with her primary care provider as scheduled on 09/07/2019 and to return to the emergency department as needed for concerning symptoms. Physical Exam Vital Signs: Temp Pulse Resp BP Pulse Ox 97.7 F 66 18 132/77 H 94 08/29/19 16:49 08/29/19 16:49 08/29/19 16:49 08/29/19 16:49 08/29/19 16:49 Intake & Output 08/28/19 08/29/19 08/30/19 06:59 06:59 06:59 Intake Total 690 1170 530 Output Total 200 Balance 690 970 530 Weight 83.6 kg 84 kg General appearance: PRESENT: no acute distress, cooperative, well-developed, well-nourished Head exam: PRESENT: atraumatic, normocephalic Eye exam: PRESENT: conjunctiva pink, EOMI, PERRLA. ABSENT: scleral icterus Ear exam: PRESENT: normal external ear exam Mouth exam: PRESENT: moist, tongue midline Teeth exam: PRESENT: poor dentation Neck exam: ABSENT: carotid bruit, JVD, lymphadenopathy, thyromegaly Respiratory exam: PRESENT: clear to auscultation chago, symmetrical, unlabored, other - baseline oxygen requirement. ABSENT: rales, rhonchi, wheezes Cardiovascular exam: PRESENT: RRR, +S1, +S2. ABSENT: diastolic murmur, rubs, systolic murmur Pulses: PRESENT: normal dorsalis pedis pul Vascular exam: PRESENT: normal capillary refill GI/Abdominal exam: PRESENT: normal bowel sounds, soft. ABSENT: distended, guarding, mass, organolmegaly, rebound, tenderness Rectal exam: PRESENT: deferred Extremities exam: PRESENT: full ROM. ABSENT: calf tenderness, clubbing, pedal edema Musculoskeletal exam: PRESENT: ambulatory Neurological exam: PRESENT: alert, awake, oriented to person, oriented to place, oriented to time, oriented to situation, CN II-XII grossly intact. ABSENT: motor sensory deficit Psychiatric exam: PRESENT: appropriate affect, normal mood. ABSENT: homicidal ideation, suicidal ideation Skin exam: PRESENT: dry, intact, warm. ABSENT: cyanosis, rash Results Laboratory Results: WBC 10.8 10^3/uL (4.0-10.5) H 08/28/19 08:55 RBC 3.38 10^6/uL (3.72-5.28) L 08/28/19 08:55 Hgb 10.3 g/dL (12.0-15.5) L 08/28/19 08:55 Hct 31.0 % (36.0-47.0) L 08/28/19 08:55 MCV 92 fl (80-97) 08/28/19 08:55 MCH 30.6 pg (27.0-33.4) 08/28/19 08:55 MCHC 33.3 g/dL (32.0-36.0) 08/28/19 08:55 RDW 14.2 % (11.5-14.0) H 08/28/19 08:55 Plt Count 223 10^3/uL (150-450) 08/28/19 08:55 Lymph % (Auto) 21.5 % (13-45) 08/28/19 08:55 [place] % (Auto) 8.3 % (3-13) 08/28/19 08:55 Eos % (Auto) 2.0 % (0-6) 08/28/19 08:55 Baso % (Auto) 0.2 % (0-2) 08/28/19 08:55 Absolute Neuts (auto) 7.4 10^3/uL (1.7-8.2) 08/28/19 08:55 Absolute Lymphs (auto) 2.3 10^3/uL (0.5-4.7) 08/28/19 08:55 Absolute Monos (auto) 0.9 10^3/uL (0.1-1.4) 08/28/19 08:55 Absolute Eos (auto) 0.2 10^3/uL (0.0-0.6) 08/28/19 08:55 Absolute Basos (auto) 0.0 10^3/uL (0.0-0.2) 08/28/19 08:55 Total Counted 100 08/24/19 16:54 Seg Neutrophils % 68.0 % (42-78) 08/28/19 08:55 Seg Neuts % (Manual) 78 % (42-78) 08/24/19 16:54 Band Neutrophils % 7 % (3-5) H 08/24/19 16:54 Lymphocytes % (Manual) 11 % (13-45) L 08/24/19 16:54 Monocytes % (Manual) 3 % (3-13) 08/24/19 16:54 Eosinophils % (Manual) 0 % (0-6) 08/24/19 16:54 Basophils % (Manual) 0 % (0-2) 08/24/19 16:54 Metamyelocytes % 1 % (0) H 08/24/19 16:54 Abs Neuts (Manual) 16.0 10^3/uL (1.7-8.2) H 08/24/19 16:54 Abs Lymphs (Manual) 2.0 10^3/uL (0.5-4.7) 08/24/19 16:54 Abs Monocytes (Manual) 0.6 10^3/uL (0.1-1.4) 08/24/19 16:54 Absolute Eos (Manual) 0.0 10^3/uL (0.0-0.6) 08/24/19 16:54 Abs Basophils (Manual) 0.0 10^3/uL (0.0-0.2) 08/24/19 16:54 Clumped Platelets PRESENT 08/24/19 16:54 Platelet Comment ADEQUATE 08/24/19 16:54 Polychromasia SLIGHT 08/24/19 16:54 Carbonic Acid 1.67 mmol/L (1.05-1.35) H 08/24/19 20:52 HCO3/H2CO3 Ratio 16:1 08/24/19 20:52 ABG pH 7.32 (7.35-7.45) L 08/24/19 20:52 ABG pCO2 55.6 mmHg (35-45) H 08/24/19 20:52 ABG pO2 55.2 mmHg (80-100) L 08/24/19 20:52 ABG HCO3 27.7 mmol/L (20-24) H 08/24/19 20:52 ABG Total CO2 29.5 mmol/L (21-25) H 08/24/19 20:52 ABG O2 Saturation 85.6 % (94-98) L 08/24/19 20:52 ABG Base Excess 0.9 mmol/L 08/24/19 20:52 FiO2 40% 08/24/19 20:52 Sodium 135.3 mmol/L (137-145) L 08/28/19 08:55 Potassium 4.9 mmol/L (3.6-5.0) 08/28/19 08:55 Chloride 97 mmol/L (98-107) L 08/28/19 08:55 Carbon Dioxide 30 mmol/L (22-30) 08/28/19 08:55 Anion Gap 8 (5-19) 08/28/19 08:55 BUN 18 mg/dL (7-20) 08/28/19 08:55 Creatinine 1.19 mg/dL (0.52-1.25) 08/28/19 21:39 Est GFR ( Amer) 54 (>60) L 08/28/19 21:39 Est GFR (MDRD) Non-Af 44 (>60) L 08/28/19 21:39 Glucose 113 mg/dL (75-110) H 08/28/19 08:55 POC Glucose 149 mg/dL (70-110) H 08/29/19 15:15 Calcium 9.7 mg/dL (8.4-10.2) 08/28/19 08:55 Magnesium 1.5 mg/dL (1.6-2.3) L 08/28/19 08:55 Total Bilirubin 0.5 mg/dL (0.2-1.3) 08/24/19 16:54 Direct Bilirubin 0.2 mg/dL (0.0-0.4) 08/24/19 16:54 Neonat Total Bilirubin Not Reportable 08/24/19 16:54 Neonat Direct Bilirubin Not Reportable 08/24/19 16:54 Neonat Indirect Bili Not Reportable 08/24/19 16:54 AST 38 U/L (14-36) H 08/24/19 16:54 ALT 16 U/L (<35) 08/24/19 16:54 Alkaline Phosphatase 107 U/L (38-126) 08/24/19 16:54 Creatine Kinase 54 U/L (30-135) 08/24/19 16:54 CK-MB (CK-2) 0.98 ng/mL (<4.55) 08/24/19 16:54 Troponin I 0.098 ng/mL 08/25/19 13:44 NT-Pro-B Natriuret Pep 1930 pg/mL (5-900) H 08/24/19 16:54 Total Protein 7.3 g/dL (6.3-8.2) 08/24/19 16:54 Albumin 4.0 g/dL (3.5-5.0) 08/24/19 16:54 Urine Color STRAW 08/25/19 15:05 Urine Appearance CLEAR 08/25/19 15:05 Urine pH 6.0 (5.0-9.0) 08/25/19 15:05 Ur Specific [place] 1.012 08/25/19 15:05 Urine Protein NEGATIVE mg/dL (NEGATIVE) 08/25/19 15:05 Urine Glucose (UA) NEGATIVE mg/dL (NEGATIVE) 08/25/19 15:05 Urine Ketones NEGATIVE mg/dL (NEGATIVE) 08/25/19 15:05 Urine Blood NEGATIVE (NEGATIVE) 08/25/19 15:05 Urine Nitrite NEGATIVE (NEGATIVE) 08/25/19 15:05 Urine Bilirubin NEGATIVE (NEGATIVE) 08/25/19 15:05 Urine Urobilinogen NEGATIVE mg/dL (<2.0) 08/25/19 15:05 Ur Leukocyte Esterase NEGATIVE (NEGATIVE) 08/25/19 15:05 Urine WBC (Auto) 1 /HPF 08/25/19 15:05 Squamous Epi Cells Auto 1 /HPF 08/25/19 15:05 Urine Mucus (Auto) RARE /LPF 08/25/19 15:05 Urine Ascorbic Acid NEGATIVE (NEGATIVE) 08/25/19 15:05 Time Trough Drawn 213808/28/19 21:39 Vancomycin Trough 11.6 ug/mL (5.0-20.0) 08/28/19 21:39 08/24/19 08/24/19 08/25/19 16:54 19:12 00:58 CK-MB (CK-2) 0.98 Troponin I < 0.012 0.121 0.263 NT-Pro-B Natriuret Pep 1930 H 08/25/19 08/25/19 07:36 13:44 CK-MB (CK-2) Troponin I 0.205 0.098 NT-Pro-B Natriuret Pep Impressions: Chest X-Ray 08/24/19 16:23 IMPRESSION: Chronic lung changes with no acute cardiopulmonary findings. Chest X-Ray 08/25/19 06:00 IMPRESSION: Emphysematous change without definite evidence of acute cardiopulmonary process. No findings to suggest CHF. Plan Plan of Treatment: The patient is discharged home in stable condition. She is advised to follow-up with her primary care provider within 1 week. She again declines home health services. However, she is agreeable to outpatien t pulmonary rehabilitation services. She is instructed to take her medications as prescribed. Avoid known respiratory triggers (dust, pollen, pet dander, smoke). Eat a cardiac diet. Be especially careful to avoid sodium (salt). Weigh daily and report any weight gain of greater than 2 lbs to provider. Return to the emergency room as needed for concerning symptoms. Time Spent: Greater than 30 Minutes Stroke Is this a Stroke Patient?: No Acute Heart Failure - Is this a Heart Failure Patient?: Yes Documentation of LVEF assessment?: Yes LVEF < 40%?: No- if no continue to question #3 3. Anticoagulant therapy for permanect/persistent/paraoxysmal Afib or Aflutter: N/A Follow-up Appointment scheduled within 7 days?: Yes
== END 2019-08-29 17:40 | disposition home or self-care (01) | DRG 189 ==
LOC: ER 16:15 → EH 19:16 → ICU 21:42 → 3S 08-25 15:50
PROVIDERS: ADMIT Internal Medicine; ATTEND Hospitalist
PROC: 5A09557 Assistance with Respiratory Ventilation, Greater than 96 Consecutive Hours, Continuous Positive Airway Pressure (ICD-10-PCS; principal; 2019-08-24)
DX: J96.21 Acute and chronic respiratory failure with hypoxia (principal); I50.33 Acute on chronic diastolic (congestive) heart failure; J18.9 Pneumonia, unspecified organism; I21.A1 Myocardial infarction type 2; N17.9 Acute kidney failure, unspecified; J44.0 Chronic obstructive pulmonary disease with (acute) lower respiratory infection; J44.1 Chronic obstructive pulmonary disease with (acute) exacerbation; I13.0 Hypertensive heart and chronic kidney disease with heart failure and stage 1 through stage 4 chronic kidney disease, or unspecified chronic kidney disease; Z66 Do not resuscitate; I25.10 Atherosclerotic heart disease of native coronary artery without angina pectoris; I44.7 Left bundle-branch block, unspecified; K21.9 Gastro-esophageal reflux disease without esophagitis; G47.33 Obstructive sleep apnea (adult) (pediatric); Z60.2 Problems related to living alone; N18.3 Chronic kidney disease, stage 3 (moderate); I27.20 Pulmonary hypertension, unspecified; E66.01 Morbid (severe) obesity due to excess calories; E11.22 Type 2 diabetes mellitus with diabetic chronic kidney disease; Y95 Nosocomial condition; F17.210 Nicotine dependence, cigarettes, uncomplicated; Z79.899 Other long term (current) drug therapy; Z88.6 Allergy status to analgesic agent; Z99.81 Dependence on supplemental oxygen; Z86.718 Personal history of other venous thrombosis and embolism; Z88.8 Allergy status to other drugs, medicaments and biological substances; Z82.49 Family history of ischemic heart disease and other diseases of the circulatory system
CPT/HCPCS: 36415; 71045; 80048; 80053; 80202; 81001; 82550; 82553; 82565; 82803; 82962; 83735; 83880; 84484; 85025; 85027; 87040; 87077; 87186; 93005; 93010; 93306; 94640; 94660; J0692; J1650; J1940; J2405; J2543; J3370; J3490; J7050; J7060; J7620

== ENCOUNTER 2019-09-20 16:44 | Emergency (ER) | payer MEDICARE ==
--- NOTE | 2019-09-20 16:59 | ER Document Report ---
ED Medical Screen (RME) - General Stated Complaint: DIFFICULTY BREATHING Time Seen by Provider: 09/20/19 16:54 Primary Care Provider: WILMAR BENSON FNP-C [Primary Care Provider] - Follow up as needed Mode of Arrival: Wheelchair Information source: Patient Notes: This 73-year-old female with history of respiratory failure presents emergency department cough and difficulty breathing that started 2 hours ago. Patient was recently discharged from the hospital for respiratory failure. Patient is on home O2. O2 sat upon arrival is 94% on 2 L nasal cannula. She denies fever vomiting diarrhea. Although at her side reports she had diarrhea couple days ago. I have greeted and performed a rapid initial assessment of this patient. A comprehensive ED assessment and evaluation of the patient, analysis of test results and completion of the medical decision making process will be conducted by additional ED providers. Dictation of this chart was performed using voice recognition software; therefore, there may be some unintended grammatical errors. TRAVEL OUTSIDE OF THE [place] IN LAST 30 DAYS: No - Related Data Allergies/Adverse Reactions: ibuprofen [From Motrin] Allergy (Intermediate, Verified 07/01/19 22:47) RASH/UTICARTIA Past Medical History - Past Medical History Cardiac Medical History: Reports: Hx Congestive Heart Failure, Hx Coronary Artery Disease, Hx DVT, Hx Hypertension Denies: Hx Atrial Fibrillation, Hx Heart Attack, Hx Heart Murmur Pulmonary Medical History: Reports: Hx Asthma, Hx COPD, Hx Pneumonia Denies: Hx Bronchitis, Hx Respiratory Failure, Hx Sleep Apnea, Hx Tuberculosis Neurological Medical History: Denies: Hx Cerebrovascular Accident, Hx Seizures, Hx Parkinson's Disease Endocrine Medical History: Reports: Hx Diabetes Mellitus Type 2. Denies: Hx Diabetes Mellitus Type 1, Hx Hyperthyroidism, Hx Hypothyroidism Renal/ Medical History: Reports: Hx Renal Insufficiency. Denies: Hx Peritoneal Dialysis GI Medical History: Reports: Hx Diverticulitis, Hx Gastroesophageal Reflux Disease. Denies: Hx Cirrhosis, Hx Crohn's Disease, Hx Hepatitis, Hx Hiatal Hernia, Hx Pancreatitis, Hx Ulcer - ?, Hx Ulcerative Colitis Musculoskeltal Medical History: Reports Hx Arthritis, Denies Hx Gout, Denies Hx Systemic Lupus Erythematosus Skin Medical History: Denies Hx Eczema, Denies Hx Psoriasis Psychiatric Medical History: Denies: Hx Depression Traumatic Medical History: Reports: Hx Fractures - several broken ribs Infectious Medical History: Denies: Hx Hepatitis Past Surgical History: Reports: Hx Appendectomy, Hx Cholecystectomy, Hx He rniorrhaphy, Hx Hysterectomy, Hx Orthopedic Surgery - rotator cuff. Denies: Hx Mastectomy, Hx Open Heart Surgery, Hx Pacemaker - Immunizations Immunizations up to date: Yes Hx Diphtheria, Pertussis, Tetanus Vaccination: No Doctor's Discharge - Discharge Referrals: WILMAR BENSON FNP-C [Primary Care Provider] - Follow up as needed
--- NOTE | 2019-09-20 17:37 | RADIOLOGY REPORT (SQ) ---
EXAM DESCRIPTION: CHEST 2 VIEWS COMPLETED DATE/TIME: 09/20/2019 5:18 pm REASON FOR STUDY: diff breathing COMPARISON: 08/25/2019 EXAM PARAMETERS: NUMBER OF VIEWS: two views TECHNIQUE: Digital Frontal and Lateral radiographic views of the chest acquired. RADIATION DOSE: NA LIMITATIONS: none FINDINGS: LUNGS AND PLEURA: The lungs arm mildly hyperexpanded. There is no infiltrate, effusion, o r mass. MEDIASTINUM AND HILAR STRUCTURES: No masses or contour abnormalities. HEART AND VASCULAR STRUCTURES: Heart normal size. No evidence for failure. BONES: No acute findings. HARDWARE: None in the chest. OTHER: No other significant finding. IMPRESSION: Chronic lung changes with no acute cardiopulmonary findings. TECHNICAL DOCUMENTATION: JOB ID: [id number] [employer]- All Rights Reserved Reading location - IP/workstation name: [email or web address]
[2019-09-20 18:04] LABS: ABSOLUTE BASOPHILS # (AUTO) 0.1 10^3/uL (0.0-0.2); ABSOLUTE EOSINOPHILS # (AUTO) 0.4 10^3/uL (0.0-0.6); ABSOLUTE LYMPHOCYTES (AUTO) 2.5 10^3/uL (0.5-4.7); ABSOLUTE MONOCYTES (AUTO) 1.1 10^3/uL (0.1-1.4); BASOPHILS % (AUTO) 0.8 % (0-2); EOSINOPHILS % (AUTO) 3.1 % (0-6); HEMATOCRIT 33.3 % (36.0-47.0); HEMOGLOBIN 10.8 g/dL (12.0-15.5); LYMPHOCYTES % (AUTO) 19.1 % (13-45); MEAN CORPUSCULAR HEMOGLOBIN 30.4 pg (27.0-33.4); MEAN CORPUSCULAR HGB CONC 32.3 g/dL (32.0-36.0); MEAN CORPUSCULAR VOLUME 94 fl (80-97); MONOCYTES % (AUTO) 8.2 % (3-13); PLATELET COUNT 276 10^3/uL (150-450); RED BLOOD COUNT 3.54 10^6/uL (3.72-5.28); RED CELL DISTRIBUTION WIDTH 13.8 % (11.5-14.0); SEGMENTED NEUTROPHILS % (AUTO) 68.8 % (42-78); TOTAL CELLS COUNTED % (AUTO) 100 %; WHITE BLOOD COUNT 13.1 10^3/uL (4.0-10.5)
[2019-09-20 18:31] LABS: ALBUMIN 3.7 g/dL (3.5-5.0); ALKALINE PHOSPHATASE 82 U/L (38-126); ANION GAP 9 (5-19); ASPARTATE AMINO TRANSFERASE 18 U/L (14-36); BILIRUBIN,DIRECT 0.2 mg/dL (0.0-0.4); BILIRUBIN,TOTAL 0.2 mg/dL (0.2-1.3); BLOOD UREA NITROGEN 26 mg/dL (7-20); CALCIUM 9.5 mg/dL (8.4-10.2); CARBON DIOXIDE 28 mmol/L (22-30); CHLORIDE 104 mmol/L (98-107); GLUCOSE 100 mg/dL (75-110); POTASSIUM 5.9 mmol/L (3.6-5.0); TOTAL PROTEIN 6.9 g/dL (6.3-8.2)
--- NOTE | 2019-09-20 19:00 | EKG REPORT ---
SEVERITY:- ABNORMAL ECG - SINUS RHYTHM LEFT BUNDLE BRANCH BLOCK : Confirmed by: Paras Alvarado MD 20-Sep-2019 19:00:16
[2019-09-20 19:55] LABS: APPEARANCE,URINE CLEAR; BILIRUBIN,URINE NEGATIVE (NEGATIVE); COLOR,URINE YELLOW; GLUCOSE, URINE 50 mg/dL (NEGATIVE); KETONES,URINE NEGATIVE (NEGATIVE); LEUKOCYTE ESTERASE,URINE NEGATIVE (NEGATIVE); NITRITE,URINE NEGATIVE (NEGATIVE); PROTEIN,URINE NEGATIVE (NEGATIVE); URINE SPECIFIC GRAVITY 1.015; UROBILINOGEN,URINE NEGATIVE mg/dL (<2.0)
[2019-09-20] MEDS ORDERED: IPRATROPIUM/ALBUTEROL 0.5-2.5 MG/3 ML AMPUL NEB ONE (21:57)
[2019-09-20] MEDS ORDERED: METHYLPREDNISOLONE INJ 125 MG/2 ML SDV IV ONE (22:11)
[2019-09-20] MEDS ORDERED: SODIUM POLYSTYRENE SULFONATE 15 GM/60 ML PO ONE (22:46)
--- NOTE | 2019-09-20 23:34 | ER Document Report ---
ED Respiratory Problem - General Chief Complaint: Breathing Difficulty Stated Complaint: DIFFICULTY BREATHING Time Seen by Provider: 09/20/19 16:54 Primary Care Provider: WILMAR BENSON FNP-C [Primary Care Provider] - Follow up as needed Mode of Arrival: Wheelchair Notes: RME NOTE: This 73-year-old female with history of respiratory failure presents emergency department cough and difficulty breathing that started 2 hours ago. Patient was recently discharged from the hospital for respiratory failure. Patient is on home O2. O2 sat upon arrival is 94% on 2 L nasal cannula. She denies fever vomiting diarrhea. Although at her side reports she had diarrhea couple days ago. MY HPI: Patient is a 73-year-old female recently discharged from this facility on 08/29/2019 for respiratory failure COPD exacerbation. Patient voices she has been feeling "fine" after d/c. States she started with an overall cough and congestion 3 days ago. Patient voices a subjective fever. Patient states at times it was hard for her to take a deep breath. Patient's denying any chest pain, nausea, vomiting. States she did have 2 episodes of diarrhea prior to arrival to the emergency department but is denying any blood in her stool. Patient is denying any dysuria or abdominal pain. Patient voices she is on oxygen at home all the time 2 L/min. TRAVEL OUTSIDE OF THE [place] IN LAST 30 DAYS: No - Related Data Allergies/Adverse Reactions: ibuprofen [From Motrin] Allergy (Intermediate, Verified 09/20/19 16:59) RASH/UTICARTIA Past Medical History - General Information source: Patient - Social History Smoking Status: Former Smoker Chew tobacco use (# tins/day): No Frequency of alcohol use: None Drug Abuse: None Family History: CAD, COPD, DM, Hypertension, Malignancy Patient has suicidal ideation: No Patient has homicidal ideation: No - Past Medical History Cardiac Medical History: Reports: Hx Congestive Heart Failure, Hx Coronary Artery Disease, Hx DVT, Hx Hypertension Denies: Hx Atrial Fibrillation, Hx Heart Attack, Hx Heart Murmur Pulmonary Medical History: Reports: Hx Asthma, Hx COPD, Hx Pneumonia Denies: Hx Bronchitis, Hx Respiratory Failure, Hx Sleep Apnea, Hx Tuberculosis Neurological Medical History: Denies: Hx Cerebrovascular Accident, Hx Seizures, Hx Parkinson's Disease Endocrine Medical History: Reports: Hx Diabetes Mellitus Type 2. Denies: Hx Diabetes Mellitus Type 1, Hx Hyperthyroidism, Hx Hypothyroidism Renal/ Medical History: Reports: Hx Renal Insufficiency. Denies: Hx Peritoneal Dialysis GI Medical History: Reports: Hx Diverticulitis, Hx Gastroesophageal Reflux D isease. Denies: Hx Cirrhosis, Hx Crohn's Disease, Hx Hepatitis, Hx Hiatal Hernia, Hx Pancreatitis, Hx Ulcer - ?, Hx Ulcerative Colitis Musculoskeletal Medical History: Reports Hx Arthritis, Denies Hx Gout, Denies Hx Systemic Lupus Erythematosus Skin Medical History: Denies Hx Eczema, Denies Hx Psoriasis Psychiatric Medical History: Denies: Hx Depression Traumatic Medical History: Reports: Hx Fractures - several broken ribs Infectious Medical History: Denies: Hx Hepatitis Past Surgical History: Reports: Hx Appendectomy, Hx Cholecystectomy, Hx Herniorrhaphy, Hx Hysterectomy, Hx Orthopedic Surgery - rotator cuff. Denies: Hx Mastectomy, Hx Open Heart Surgery, Hx Pacemaker - Immunizations Immunizations up to date: Yes Hx Diphtheria, Pertussis, Tetanus Vaccination: No Hx Pneumococcal Vaccination: 08/30/14 Review of Systems - Review of Systems Constitutional: denies: Fever EENT: See HPI Cardiovascular: See HPI Respiratory: See HPI Gastrointestinal: See HPI Genitourinary: No symptoms reported Female Genitourinary: No symptoms reported Musculoskeletal: No symptoms reported Skin: No symptoms reported Hematologic/Lymphatic: No symptoms reported Neurological/Psychological: No symptoms reported Physical Exam - Vital signs Vitals: Temp Pulse Resp BP Pulse Ox 97.7 F 55 L 28 H 166/67 H 94 09/20/19 16:58 09/20/19 16:58 09/20/19 16:58 09/20/19 16:58 09/20/19 16:58 - Notes Notes: GENERAL: Alert, interacts well. No acute distress. HEAD: Normocephalic, atraumatic. EYES: Pupils equal, round, and reactive to light. Extraocular movements intact. ENT: Oral mucosa moist, tongue midline. NECK: Full range of motion. Supple. Trachea midline. LUNGS: Expiratory wheeze to auscultation bilateral bases, no discernible rales, or rhonchi. No respiratory distress. HEART: Regular rate and rhythm. No murmur ABDOMEN: Soft, non-tender. Non-distended. Bowel sounds present in all 4 quadrants. EXTREMITIES: Moves all 4 extremities spontaneously. No edema, normal radial and dorsalis pedis pulses bilaterally. No cyanosis. BACK: no cervical, thoracic, lumbar midline tenderness. No saddle anesthesia, normal distal neurovascular exam. NEUROLOGICAL: Alert and oriented x3. Normal speech. cranial nerves II through XII grossly intact PSYCH: Normal affect, normal mood. SKIN: Warm, dry, normal turgor. No rashes or lesions noted. Course - Re-evaluation Re-evalutation: 09/20/19 23:31 Laboratory 09/20/19 09/20/19 09/20/19 17:50 17:50 17:50 WBC 13.1 H RBC 3.54 L Hgb 10.8 L Hct 33.3 L MCV 94 MCH 30.4 MCHC 32.3 RDW 13.8 Plt Count 276 Lymph % (Auto) 19.1 [place] % (Auto) 8.2 Eos % (Auto) 3.1 Baso % (Auto) 0.8 Absolute Neuts (auto) 9.0 H Absolute Lymphs (auto) 2.5 Absolute Monos (auto) 1.1 Absolute Eos (auto) 0.4 Absolute Basos (auto) 0.1 Seg Neutrophils % 68.8 Sodium 140.9 Potassium 5.9 H Chloride 104 Carbon Dioxide 28 Anion Gap 9 BUN 26 H Creatinine 1.16 Est GFR ( Amer) 55 L Est GFR (MDRD) Non-Af 46 L Glucose 100 Calcium 9.5 Total Bilirubin 0.2 Direct Bilirubin 0.2 Neonat Total Bilirubin Not Reportable Neonat Direct Bilirubin Not Reportable Neonat Indirect Bili Not Reportable AST 18 ALT 11 Alkaline Phosphatase 82 NT-Pro-B Natriuret Pep 1430 H Total Protein 6.9 Albumin 3.7 Urine Color Urine Appearance Urine pH Ur Specific [place] Urine Protein Urine Glucose (UA) Urine Ketones Urine Blood Urine Nitrite Urine Bilirubin Urine Urobilinogen Ur Leukocyte Esterase Urine WBC (Auto) Urine RBC (Auto) Urine Bacteria (Auto) Squamous Epi Cells Auto Urine Mucus (Auto) Urine Ascorbic Acid 09/20/19 19:42 WBC RBC Hgb Hct MCV MCH MCHC RDW Plt Count Lymph % (Auto) [place] % (Auto) Eos % (Auto) Baso % (Auto) Absolute Neuts (auto) Absolute Lymphs (auto) Absolute Monos (auto) Absolute Eos (auto) Absolute Basos (auto) Seg Neutrophils % Sodium Potassium Chloride Carbon Dioxide Anion Gap BUN Creatinine Est GFR ( Amer) Est GFR (MDRD) Non-Af Glucose Calcium Total Bilirubin Direct Bilirubin Neonat Total Bilirubin Neonat Direct Bilirubin Neonat Indirect Bili AST ALT Alkaline Phosphatase NT-Pro-B Natriuret Pep Total Protein Albumin Urine Color YELLOW Urine Appearance CLEAR Urine pH 6.0 Ur Specific [place] 1.015 Urine Protein NEGATIVE Urine Glucose (UA) 50 H Urine Ketones NEGATIVE Urine Blood NEGATIVE Urine Nitrite NEGATIVE Urine Bilirubin NEGATIVE Urine Urobilinogen NEGATIVE Ur Leukocyte Esterase NEGATIVE Urine WBC (Auto) 3 Urine RBC (Auto) 1 Urine Bacteria (Auto) TRACE Squamous Epi Cells Auto 1 Urine Mucus (Auto) RARE Urine Ascorbic Acid NEGATIVE Chest X-Ray 09/20/19 16:54 IMPRESSION: Chronic lung changes with no acute cardiopulmonary findings. Upon my initial assessment patient is sleeping, easily arousable to verbal stimuli. She is 95% on her home oxygen in no apparent distress. Patient voices "I feel better now. Upon my assessment she does have expiratory wheezes seen bilateral bases. We will treat with DuoNeb. Patient has no excessive sputum production, no fevers. Patient voices no swelling noted to bilateral lower extremities. Patient voices she does not do much walking around at home typically. Patient's potassium was noted to be 5.9. She was treated with 2 DuoNeb treatments as well as Kayexalate in the emergency department. Patient also takes home Lasix. Discussed this with my attending Dr. White who is in agreement with this plan. Patient's EKG shows a sinus bradycardia rate of 50, QTc 442, left bundle branch block, old. No peaked T waves noted. Currently on telemetry patient's heart rate is noted to be 66 without ectopy. I discussed with her at length albuterol treatments as well as Kayexalate should bring patient's potassium down. Of also discussed she should get her potassium rechecked tomorrow. Discussed continue to take her medications as prescribed. Patient voices she does not take a potassium supplement. I have again discussed close follow-up with primary care provider in the next 12 hours for laboratory redraw. Patient voices understanding. Upon reassessment patient's lung sounds are clear and equal in all blackmon. She continues to be without respiratory distress. Is continually denying chest pain. Likely COPD exacerbation. Stable for discharge. 09/20/19 23:58 - Vital Signs Vital signs: Temp Pulse Resp BP Pulse Ox 97.7 F 55 L 17 140/67 H 92 10/30/19 16:58 09/20/19 16:58 09/20/19 20:01 09/20/19 20:01 09/20/19 20:01 - Laboratory Result Diagrams: 09/20/19 17:50 09/20/19 17:50 Laboratory results interpreted by me: 09/20/19 09/20/19 09/20/19 17:50 17:50 17:50 WBC 13.1 H RBC 3.54 L Hgb 10.8 L Hct 33.3 L Absolute Neuts (auto) 9.0 H Potassium 5.9 H BUN 26 H Est GFR ( Amer) 55 L Est GFR (MDRD) Non-Af 46 L NT-Pro-B Natriuret Pep 1430 H Urine Glucose (UA) 09/20/19 19:42 WBC RBC Hgb Hct Absolute Neuts (auto) Potassium BUN Est GFR ( Amer) Est GFR (MDRD) Non-Af NT-Pro-B Natriuret Pep Urine Glucose (UA) 50 H Discharge - Discharge Clinical Impression: COPD (chronic obstructive pulmonary disease) Qualifiers: COPD type: unspecified COPD Qualified Code(s): J44.9 - Chronic obstructive pulmonary disease, unspecified Condition: Stable Disposition: HOME, SELF-CARE Instructions: Chronic Obstructive Lung Disease ([facility]) Additional Instructions: As we discussed you have been seen and treated in the emergency department for an exacerbation of your COPD. Please use your albuterol treatments every 4 hours for the next 3 days. Please also make sure taking steroids as prescribed. Please follow-up with your primary care provider in the next 12 hours for laboratory redraw. As we discussed your potassium was slightly elevated at today's visit. Please return to the emergency department for any concerns. Prescriptions: Prednisone [Deltasone 20 mg Tablet] 3 tab PO DAILY 5 Days tablet Referrals: WILMAR BENSON FNP-C [Primary Care Provider] - Follow up as needed
[2019-09-21 00:04] VITALS: BP 104/85
== END 2019-09-21 00:30 | disposition home or self-care (01) ==
LOC: ER 16:44
DX: J44.9 Chronic obstructive pulmonary disease, unspecified (principal); Z99.81 Dependence on supplemental oxygen; I11.0 Hypertensive heart disease with heart failure; I50.9 Heart failure, unspecified; Z79.899 Other long term (current) drug therapy; R19.7 Diarrhea, unspecified; R05 Cough; I25.10 Atherosclerotic heart disease of native coronary artery without angina pectoris; R00.1 Bradycardia, unspecified; I44.7 Left bundle-branch block, unspecified; E11.9 Type 2 diabetes mellitus without complications; Z87.01 Personal history of pneumonia (recurrent); Z87.891 Personal history of nicotine dependence; Z88.8 Allergy status to other drugs, medicaments and biological substances
CPT/HCPCS: 93005; 36415; 85025; 80053; 81001; 83880; 71046; 93010; A9270 ×2; 87086; 87088; J7620

== ENCOUNTER 2020-01-20 19:56 | Emergency (ER) | payer MEDICARE ==
--- NOTE | 2020-01-20 20:10 | ER Document Report ---
ED Medical Screen (RME) - General Chief Complaint: Nausea/Vomiting/Diarrhea Stated Complaint: NAUSEA,HEADACHE Time Seen by Provider: 01/20/20 20:08 Primary Care Provider: WILMAR BENSON FNP-C [Primary Care Provider] - Follow up as needed TRAVEL OUTSIDE OF THE [place] IN LAST 30 DAYS: No - HPI Notes: 01/20/20 20:10 Patient is a 74-year-old female with a history of left bundle branch block, home oxygen dependent COPD, allergic sinusitis, chronic bronchitis, GERD, obstructive sleep apnea and mild to moderate diastolic heart failure presents complaining of nausea, diarrhea, and generalized abdominal pain that began yesterday. Patient states that she does not have any chest pain or shortness of breath outside of her normal. She has not noticed any fevers. No recent antibiotic use. I have treated and performed a rapid initial assessment of this patient. A comprehensive ED assessment and evaluation of the patient, analysis of test results and completion of medical decision making process will be conducted by additional ED providers. PHYSICAL EXAMINATION: GENERAL: Well-appearing, well-nourished and in no acute distress. A&Ox4. Answers questions appropriately. Abdomen: Limited exam in triage, there is generalized mild tenderness noted. Abd is soft. - Related Data Allergies/Adverse Reactions: ibuprofen [From Motrin] Allergy (Intermediate, Verified 09/20/19 16:59) RASH/UTICARTIA Past Medical History - Past Medical History Cardiac Medical History: Reports: Hx Congestive Heart Failure, Hx Coronary Artery Disease, Hx DVT, Hx Hypertension Denies: Hx Atrial Fibrillation, Hx Heart Attack, Hx Heart Murmur Pulmonary Medical History: Reports: Hx Asthma, Hx COPD, Hx Pneumonia Denies: Hx Bronchitis, Hx Respiratory Failure, Hx Sleep Apnea, Hx Tuberculosis Neurological Medical History: Denies: Hx Cerebrovascular Accident, Hx Seizures, Hx Parkinson's Disease Endocrine Medical History: Reports: Hx Diabetes Mellitus Type 2. Denies: Hx Diabetes Mellitus Type 1, Hx Hyperthyroidism, Hx Hypothyroidism Renal/ Medical History: Reports: Hx Renal Insufficiency. Denies: Hx Peritoneal Dialysis GI Medical History: Reports: Hx Diverticulitis, Hx Gastroesophageal Reflux Disease. Denies: Hx Cirrhosis, Hx Crohn's Disease, Hx Hepatitis, Hx Hiatal Hernia, Hx Pancreatitis, Hx Ulcer - ?, Hx Ulcerative Colitis Musculoskeltal Medical History: Reports Hx Arthritis, Denies Hx Gout, Denies Hx Systemic Lupus Erythematosus Skin Medical History: Denies Hx Eczema, Denies Hx Psoriasis Psychiatric Medical History: Denies: Hx Depression Traumatic Medical History: Reports: Hx Fractures - several broken ribs Infectious Medical History: Denies: Hx Hepatitis Past Surgical History: Reports: Hx Appendectomy, Hx Cholecystectomy, Hx Herniorrhaphy, Hx Hysterectomy, Hx Orthopedic Surgery - rotator cuff. Denies: Hx Mastectomy, Hx Open Heart Surgery, Hx Pacemaker - Immunizations Immunizations up to date: Yes Hx Diphtheria, Pertussis, Tetanus Vaccination: No Physical Exam - Vital signs Vitals: Temp Pulse Resp BP Pulse Ox 98.1 F 75 18 149/60 H 90 L 01/20/20 20:06 01/20/20 20:06 01/20/20 20:06 01/20/20 20:06 01/20/20 20:06 Course - Vital Signs Vital signs: Temp Pulse Resp BP Pulse Ox 98.1 F 75 18 149/60 H 90 L 01/20/20 20:06 01/20/20 20:06 01/20/20 20:06 01/20/20 20:06 01/20/20 20:06 Doctor's Discharge - Discharge Referrals: WILMAR BENSON FNP-C [Primary Care Provider] - Follow up as needed
[2020-01-20] MEDS ORDERED: NORMAL SALINE 1000 ML 1,000 ML IV ONE (21:46)
[2020-01-20] MEDS ORDERED: ONDANSETRON HCL INJ/PF 4 MG/2 ML SDV IV ONE (21:46)
--- NOTE | 2020-01-20 21:46 | ER Document Report ---
ED General - General Chief Complaint: Nausea Stated Complaint: NAUSEA,HEADACHE Time Seen by Provider: 01/20/20 20:08 Primary Care Provider: WILMAR BENSON FNP-C [NURSE PRACTITIONER] - Follow up as needed Information source: Patient TRAVEL OUTSIDE OF THE [place] IN LAST 30 DAYS: No - HPI Onset: Yesterday Onset/Duration: Gradual Quality of pain: Achy, Fullness Severity: Moderate Pain Level: 3 Associated symptoms: Nausea, Other - Abdominal Pain Exacerbated by: Denies Relieved by: Denies Similar symptoms previously: No Recently seen / treated by doctor: No Notes: 74 year old female with a history of CAD, CHF, HTN, DVT, DM, CKD, GERD, COPD on home O2 here for a headache, nausea, abdominal pains and profuse diarrhea. The patient says the headache was the first thing that started followed by diarrhea, abdominal pain, and nausea. The patient denies sick contacts, recent travel, recent antibiotic use, recent ingested of uncooked foots. The patient has not had fevers but she has had chills and sweats. - Related Data Allergies/Adverse Reactions: ibuprofen [From Motrin] Allergy (Intermediate, Verified 09/20/19 16:59) RASH/UTICARTIA Home Medications: trelegy, baby asa, metformin,lisinopril, gabapentin, atorvastatin Past Medical History - General Information source: Patient - Social History Smoking Status: Current Every Day Smoker Frequency of alcohol use: None Drug Abuse: None Lives with: Family Family History: CAD, COPD, DM, Hypertension, Malignancy Patient has suicidal ideation: No Patient has homicidal ideation: No - Past Medical History Cardiac Medical History: Reports: Hx Congestive Heart Failure, Hx Coronary Artery Disease, Hx DVT, Hx Hypertension Denies: Hx Atrial Fibrillation, Hx Heart Attack, Hx Heart Murmur Pulmonary Medical History: Reports: Hx Asthma, Hx COPD, Hx Pneumonia Denies: Hx Bronchitis, Hx Respiratory Failure, Hx Sleep Apnea, Hx Tuberculosis Neurological Medical History: Denies: Hx Cerebrovascular Accident, Hx Seizures, Hx Parkinson's Disease Endocrine Medical History: Reports: Hx Diabetes Mellitus Type 2. Denies: Hx Di abetes Mellitus Type 1, Hx Hyperthyroidism, Hx Hypothyroidism Renal/ Medical History: Reports: Hx Renal Insufficiency. Denies: Hx Peritoneal Dialysis GI Medical History: Reports: Hx Diverticulitis, Hx Gastroesophageal Reflux Disease. Denies: Hx Cirrhosis, Hx Crohn's Disease, Hx Hepatitis, Hx Hiatal Hernia, Hx Pancreatitis, Hx Ulcer - ?, Hx Ulcerative Colitis Musculoskeletal Medical History: Reports Hx Arthritis, Denies Hx Gout, Denies Hx Systemic Lupus Erythematosus Skin Medical History: Denies Hx Eczema, Denies Hx Psoriasis Psychiatric Medical History: Denies: Hx Depression Traumatic Medical History: Reports: Hx Fractures - several broken ribs Infectious Medical History: Denies: Hx Hepatitis Past Surgical History: Reports: Hx Appendectomy, Hx Cholecystectomy, Hx Herniorrhaphy, Hx Hysterectomy, Hx Orthopedic Surgery - rotator cuff. Denies: Hx Mastectomy, Hx Open Heart Surgery, Hx Pacemaker - Immunizations Immunizations up to date: Yes Hx Diphtheria, Pertussis, Tetanus Vaccination: No Hx Pneumococcal Vaccination: 08/30/14 Review of Systems - Review of Systems Constitutional: Chills, Weakness. denies: Fever EENT: No symptoms reported Cardiovascular: No symptoms reported Respiratory: Cough, Short of breath Gastrointestinal: Abdominal pain, Diarrhea, Nausea Genitourinary: No symptoms reported Female Genitourinary: No symptoms reported Musculoskeletal: No symptoms reported Skin: No symptoms reported Hematologic/Lymphatic: No symptoms reported Neurological/Psychological: Headaches -: Yes All other systems reviewed and negative Physical Exam - Vital signs Vitals: Temp Pulse Resp BP Pulse Ox 98.1 F 75 18 149/60 H 90 L 01/20/20 20:06 01/20/20 20:06 01/20/20 20:06 01/20/20 20:06 01/20/20 20:06 - Notes Notes: GENERAL: Well-appearing, well-nourished and in no acute distress. HEAD: Atraumatic, normocephalic. EYES: Pupils equal round and reactive to light, extraocular movements intact, sclera anicteric, conjunctiva are normal. ENT: Nares patent, oropharynx clear without exudates. Moist mucous membranes. NECK: Normal range of motion, supple without lymphadenopathy or JVD. LUNGS: Breath sounds clear to auscultation bilaterally and equal. No wheezes rales or rhonchi. HEART: Regular rate and rhythm without murmurs, rubs or gallops. ABDOMEN: Soft, moderate diffuse abdominal tenderness, normoactive bowel sounds. No guarding, no rebound. No masses appreciated. EXTREMITIES: Normal range of motion, no pitting or edema. No clubbing or cyanosis. NEUROLOGICAL: Cranial nerves II through XII grossly intact. Normal speech, normal gait. PSYCH: Normal mood, normal affect. SKIN: Warm, Dry, normal turgor, no rashes or lesions noted. Course - Re-evaluation Re-evalutation: 01/21/20 01:19 The patient had diverticulitis seen on CT scan. Patient was treated with fluids, Morphine Zofran, PO Flagyl, PO Cipro. Patient DCed with script for Flagyl, Cipro, and Zofran and she was given a Maynard comp pack. Patient told to follow up with her PCP. Patient had a head CT since she never has headaches. The patient's head CT showed no acute process. Patient felt better after treatment in the ER and she could tolerate POs. - Vital Signs Vital signs: Temp Pulse Resp BP Pulse Ox 98.0 F 75 23 H 141/88 H 94 01/20/20 21:00 01/20/20 20:06 01/21/20 01:01 01/21/20 01:01 01/21/20 01:01 - Laboratory Result Diagrams: 01/20/20 22:40 01/20/20 22:40 Laboratory results interpreted by me: 01/20/20 01/20/20 22:40 22:40 WBC 12.4 H RBC 3.70 L Hgb 11.2 L Hct 35.0 L RDW 14.6 H Band Neutrophils % 1 L Abs Neuts (Manual) 9.2 H Est GFR ( Amer) 58 L Est GFR (MDRD) Non-Af 48 L - Diagnostic Test Radiology reviewed: Image reviewed, Reports reviewed Discharge - Discharge Clinical Impression: Diverticulitis, Abdominal pain Disposition: HOME, SELF-CARE Instructions: Abdominal Pain ([facility]), Diverticulitis ([facility]) Additional Instructions: Take Ciprofloxacin and Flagyl as prescribed. Use Zofran for nausea. Use Maynard for pain not well controlled with Tylenol. Follow up with your primary care doctor to ensure resolution of symptoms. Prescriptions: Ciprofloxacin HCl [Cipro 500 mg Tablet] 500 mg PO BID 7 Days #14 tablet Metronidazole [Flagyl 500 mg Tablet] 500 mg PO TID 7 Days #21 tablet Ondansetron [Zofran Odt 4 mg Tablet] 1 tab PO Q8H PRN #10 tab.rapdis PRN Reason: For Nausea/Vomiting Referrals: WILMAR BENSON, REHABILITATION LIAISON-C [NURSE PRACTITIONER] - Follow up as needed
[2020-01-20] MEDS ORDERED: MORPHINE SULFATE 10 MG/ML INJ IV ONE (21:55)
--- NOTE | 2020-01-20 22:39 | RADIOLOGY REPORT (SQ) ---
EXAM DESCRIPTION: XR CHEST 2 VIEWS COMPLETED DATE/TME: 01/20/2020 22:00 CLINICAL HISTORY: 74 years Female, eval for pneumonia COMPARISON:Aug 25 2019 NUMBER OF VIEWS/TECHNIQUE: 1/AP FINDINGS: Increased lung volume, small somewhat nodular patchiness of the right mid lung field, normal cardiac silhouette, and intact bony thorax. IMPRESSION: Small nodular patchiness of the right mid lung field. Differential etiologies include infectious, inflammatory, and neoplastic processes. Recommend CR/CT surveillance including at 7-12 weeks following initiation of any clinically warranted therapy.
[2020-01-20 22:55] LABS: HEMOGLOBIN 11.2 g/dL (12.0-15.5); MEAN CORPUSCULAR HEMOGLOBIN 30.3 pg (27.0-33.4); MEAN CORPUSCULAR VOLUME 95 fl (80-97); PLATELET COUNT 219 10^3/uL (150-450); RED CELL DISTRIBUTION WIDTH 14.6 % (11.5-14.0); WHITE BLOOD COUNT 12.4 10^3/uL (4.0-10.5)
[2020-01-20 23:13] LABS: ALBUMIN 3.8 g/dL (3.5-5.0); ALKALINE PHOSPHATASE 99 U/L (38-126); ANION GAP 9 (5-19); ASPARTATE AMINO TRANSFERASE 21 U/L (14-36); BILIRUBIN,DIRECT 0.3 mg/dL (0.0-0.4); BILIRUBIN,TOTAL 0.3 mg/dL (0.2-1.3); BLOOD UREA NITROGEN 17 mg/dL (7-20); CALCIUM 8.9 mg/dL (8.4-10.2); CARBON DIOXIDE 28 mmol/L (22-30); CHLORIDE 103 mmol/L (98-107); GLUCOSE 90 mg/dL (75-110); POTASSIUM 4.8 mmol/L (3.6-5.0); TOTAL PROTEIN 7.2 g/dL (6.3-8.2)
[2020-01-20 23:15] LABS: ABSOLUTE LYMPHOCYTES# (MANUAL) 1.9 10^3/uL (0.5-4.7); ABSOLUTE MONOCYTES # (MANUAL) 0.9 10^3/uL (0.1-1.4); BAND NEUTROPHILS % (MANUAL) 1 % (3-5); BASOPHILS % (MANUAL) 0 % (0-2); EOSINOPHILS % (MANUAL) 4 % (0-6); LYMPHOCYTES % (MANUAL) 15 % (13-45); MONOCYTES % (MANUAL) 7 % (3-13); PLATELET COMMENT ADEQUATE; RBC MORPHOLOGY COMMENT NORMO-CYTIC/CHROMIC; SEGMENTED NEUTROPHILS % (MAN) 73 % (42-78); TOTAL CELLS COUNTED 100
--- NOTE | 2020-01-21 00:48 | RADIOLOGY REPORT (SQ) ---
CT head without contrast on 01/21/2020 at 12:14 AM CLINICAL INDICATION: Headache TECHNIQUE: Multiple axial images are obtained throughout the head without the administration of contrast. This exam was performed according to our departmental dose-optimization program, which includes automated exposure control, adjustment of the mA and/or kV according to patient size and/or use of iterative reconstruction technique. Total DLP is 1070.38 mGy*cm. 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 There is low-density in the periventricular white matter consistent with chronic small vessel ischemic changes. There is no hydrocephalus. There is no hemorrhage. There are no abnormal extra-axial fluid collections. There is no mass, mass effect or midline shift. No bony abnormality is noted. IMPRESSION: Chronic findings as above with no acute intracranial abnormality.
--- NOTE | 2020-01-21 01:04 | RADIOLOGY REPORT (SQ) ---
CT abdomen and pelvis with contrast on 01/21/2020 at 12:18 AM CLINICAL INDICATION: Generalized abdominal pain TECHNIQUE: Multiple axial images are obtained throughout the abdomen and pelvis following the administration of IV contrast, 88 mL of Omnipaque 350 contrast was administered intravenously without complication. This exam was performed according to our departmental dose-optimization program, which includes automated exposure control, adjustment of the mA and/or kV according to patient size and/or use of iterative reconstruction technique. Total DLP is 2034.07 mGy*cm. COMPARISON: 06/11/2018 FINDINGS: Abdomen: There is minimal basilar atelectasis. Vascular calcifications are noted. Tiny renal cysts are noted. Solid abdominal organs are otherwise unremarkable. There is no abdominal adenopathy. There is no free fluid or free air within the abdomen. There is diverticulosis. There is some mild fat stranding around the diverticula in the mid descending colon suggesting mild acute diverticulitis. This is seen best on axial image 41 of series 3. There is no evidence of abscess or perforation. Pelvis: There is diverticulosis. The patient is status post hysterectomy. There is no free fluid in the pelvis. There is no pelvic adenopathy. Pelvic portion of the GI tract is otherwise unremarkable. Degenerative changes are noted in the spine. IMPRESSION: 1. Mild acute descending colon diverticulitis without evidence of abscess or perforation. 2. Diverticulosis throughout the colon.
[2020-01-21] MEDS ORDERED: CIPROFLOXACIN HCL 500 MG TABLET PO ONE (01:20)
[2020-01-21] MEDS ORDERED: FENTANYL CITRATE INJ/PF 100 MCG/2 ML AMPUL IV ONE (01:20)
[2020-01-21] MEDS ORDERED: METRONIDAZOLE 500 MG TABLET PO ONE (01:20)
[2020-01-21 01:22] LABS: APPEARANCE,URINE CLEAR; BILIRUBIN,URINE NEGATIVE (NEGATIVE); COLOR,URINE YELLOW; GLUCOSE, URINE 50 mg/dL (NEGATIVE); KETONES,URINE NEGATIVE (NEGATIVE); LEUKOCYTE ESTERASE,URINE NEGATIVE (NEGATIVE); NITRITE,URINE NEGATIVE (NEGATIVE); PROTEIN,URINE 30 mg/dL (NEGATIVE); URINE SPECIFIC GRAVITY 1.026; UROBILINOGEN,URINE NEGATIVE mg/dL (<2.0)
[2020-01-21] MEDS ORDERED: HYDROCODONE/ACETAMINOPHEN 5-325 MG (6 TAB/ER DISP) PO PRN (01:24)
[2020-01-21 02:35] VITALS: BP 140/79
== END 2020-01-21 02:41 | disposition home or self-care (01) ==
LOC: ER 19:56
DX: K57.32 Diverticulitis of large intestine without perforation or abscess without bleeding (principal); R51 Headache; R19.7 Diarrhea, unspecified; R11.0 Nausea; R68.83 Chills (without fever); R61 Generalized hyperhidrosis; R53.1 Weakness; R10.9 Unspecified abdominal pain; R10.817 Generalized abdominal tenderness; R05 Cough; R06.02 Shortness of breath; I25.10 Atherosclerotic heart disease of native coronary artery without angina pectoris; I10 Essential (primary) hypertension; E11.9 Type 2 diabetes mellitus without complications; F17.200 Nicotine dependence, unspecified, uncomplicated; J44.9 Chronic obstructive pulmonary disease, unspecified; Z99.81 Dependence on supplemental oxygen; Z79.51 Long term (current) use of inhaled steroids; Z79.82 Long term (current) use of aspirin; Z79.84 Long term (current) use of oral hypoglycemic drugs; Z88.8 Allergy status to other drugs, medicaments and biological substances
CPT/HCPCS: 99284; 96361; 96374; 96375; 36415; 83690; 83735; 85025; 80053; 81001; 71046; 70450; 74177; A9270 ×3; J3010; J2270; J2405; J7030

== ENCOUNTER → 2020-05-13 | Outpatient (CLI) | payer MEDICARE ==
--- NOTE | 2020-05-13 14:53 | WOMENS IMAGING REPORT ---
EXAM DESCRIPTION: BONE DENSITY HIP/SPINE IMAGES COMPLETED DATE/TIME: 05/13/2020 2:19 pm REASON FOR STUDY: Z78.0 POSTMENOPAUSAL Z12.31 ENCNTR SCREEN MAMMOGRAM FOR MALIGNANT NEOPLASM OF SERINA Z78.0 ASYMPTOMATIC MENOPAUSAL STATE COMPARISON: 06/25/2016 TECHNIQUE: Dual-Energy X-ray Absorptiometry (DEXA) of the AP Spine and Hip. LIMITATIONS: None. FINDINGS: LUMBAR SPINE: The bone mineral density (BMD) measured from L1-L4 in the AP projection correlates with a T-score of -1.4, which is osteopenia as defined by the World Health Organization. BMD Change vs Baseline: -1% HIP: The bone mineral density (BMD) measured in the left hip correlates with a T-score of -1.3 in the femo ral neck, which is osteopenia as defined by the World Health Organization. BMD Change vs Baseline: +5.7% 10 year Fracture Risk Assessment: Major Osteoporotic Fracture: 16% Hip Fracture: 4.6% IMPRESSION: 1. LUMBAR SPINE WHO CLASSIFICATION: Osteopenia 2. HIP WHO CLASSIFICATION: Osteopenia OVERALL ASSESSMENT: WHO CLASSIFICATION: Osteopenia COMMENT: The World Health Organization defines low BMD as follows: T-score: Normal: At or above -1.0 Osteopenia: Between -1.0 and -2.5 Osteoporosis: At or below -2.5 without fractures Established osteoporosis: At or below -2.5 with fractures In general, you may wish to consider: Diagnosis Treatment Follow-up DEXA Normal BMD Prevention 2-3 years Osteopenia Prevention/Therapy 1-2 years Osteoporosis Therapy Yearly TECHNICAL DOCUMENTATION: JOB ID: [id number] 2010 [employer]- All Rights Reserved Reading location - IP/workstation name: [email or web address]
--- NOTE | 2020-05-13 17:02 | WOMENS IMAGING REPORT ---
EXAM DESCRIPTION: 3D SCREENING MAMMO BILAT IMAGES COMPLETED DATE/TIME: 05/13/2020 1:19 pm REASON FOR STUDY: Z12.31 SCREENING MAMMO Z12.31 ENCNTR SCREEN MAMMOGRAM FOR MALIGNANT NEOPLASM OF B RE Z78.0 ASYMPTOMATIC MENOPAUSAL STATE COMPARISON: 08/31/2017, 08/10/2016 EXAM PARAMETERS: Views: Standard craniocaudal and mediolateral oblique views of each breast recorded using digital acquisition and breast tomosynthesis. . Read with the assistance of CAD. .[facility] - [employer] Version 9.2 LIMITATIONS: None. FINDINGS: No suspicious masses, suspicious calcifications or architectural distortion. No areas of c oncern. IMPRESSION: NEGATIVE MAMMOGRAM. BIRADS 1. BREAST DENSITY: b. There are scattered areas of fibroglandular density. BIRAD: ASSESSMENT: 1 NEGATIVE RECOMMENDATION: ROUTINE SCREENING COMMENT: The patient has been notified of the results by letter per MQSA requirements. Additional no tification policies are in place for contacting patient with suspicious or incomplete findings. Quality ID #[id number]: The [employer] recommends an annual screening mammogram for women aged 40 years or over. This facility utilizes a reminder system to ensure that all patients receive reminder letters, and/or direct phone calls for appointments. This includes reminders for routine scr eening mammograms, diagnostic mammograms, or other Breast Imaging Interventions when appropriate. Th is patient will be placed in the appropriate reminder system. TECHNICAL DOCUMENTATION: FINDING NUMBER: (1) ASSESSMENT: (1) JOB ID: [id number] 2010 [employer]- All Rights Reserved Reading location - IP/workstation name: [email or web address]
== END ==
LOC: WI 13:30
PROVIDERS: ATTEND Physician Assistant Medical
DX: Z12.31 Encounter for screening mammogram for malignant neoplasm of breast (principal); M85.88 Other specified disorders of bone density and structure, other site; Z78.0 Asymptomatic menopausal state
CPT/HCPCS: 77063; 77067; 77080

== ENCOUNTER 2020-08-04 19:10 | Emergency (ER) | payer MEDICARE ==
[2020-08-04] MEDS ORDERED: OXYCODONE-ACETAMINOPHEN 5-325 MG TABLET PO ONE (20:00)
--- NOTE | 2020-08-04 20:03 | ER Document Report ---
ED Medical Screen (RME) - General Chief Complaint: Fall Stated Complaint: FALL/LEG PAIN Time Seen by Provider: 08/04/20 19:56 Primary Care Provider: LELE BUTTERFIELD PA-C [Primary Care Provider] - Follow up as needed Mode of Arrival: Wheelchair Notes: Patient presents after a fall at home this afternoon. The patient has had 2 falls over the past week. Patient denies any head injury or loss of consciousness. Patient denies any chest pain or shortness of breath. Patient complains of right knee pain and left shoulder pain. Patient injured her left knee with her previous fall. Patient with significant swelling to the right knee. Patient has a history of a CVA, COPD, CHF, hypertension and diabetes. I have greeted and performed a rapid initial assessment of this patient. A comp rehensive ED assessment and evaluation of the patient, analysis of test results and completion of the medical decision making process will be conducted by additional ED providers. TRAVEL OUTSIDE OF THE [place] IN LAST 30 DAYS: No - Related Data Allergies/Adverse Reactions: ibuprofen [From Motrin] Allergy (Intermediate, Verified 09/20/19 16:59) RASH/UTICARTIA Past Medical History - Past Medical History Cardiac Medical History: Reports: Hx Congestive Heart Failure, Hx Coronary Artery Disease, Hx DVT, Hx Hypertension Denies: Hx Atrial Fibrillation, Hx Heart Attack, Hx Heart Murmur Pulmonary Medical History: Reports: Hx Asthma, Hx COPD, Hx Pneumonia Denies: Hx Bronchitis, Hx Respiratory Failure, Hx Sleep Apnea, Hx Tuberculosis Neurological Medical History: Denies: Hx Cerebrovascular Accident, Hx Seizures, Hx Parkinson's Disease Endocrine Medical History: Reports: Hx Diabetes Mellitus Type 2. Denies: Hx Diabetes Mellitus Type 1, Hx Hyperthyroidism, Hx Hypothyroidism Renal/ Medical History: Reports: Hx Renal Insufficiency. Denies: Hx Peritoneal Dialysis GI Medical History: Reports: Hx Diverticulitis, Hx Gastroesophageal Reflux Disease. Denies: Hx Cirrhosis, Hx Crohn's Disease, Hx Hepatitis, Hx Hiatal Hernia, Hx Pancreatitis, Hx Ulcer - ?, Hx Ulcerative Colitis Musculoskeltal Medical History: Reports Hx Arthritis, Denies Hx Gout, Denies Hx Systemic Lupus Erythematosus Skin Medical History: Denies Hx Eczema, Denies Hx Psoriasis Psychiatric Medical History: Denies: Hx Depression Traumatic Medical History: Reports: Hx Fractures - several broken ribs Infectious Medical History: Denies: Hx Hepatitis Past Surgical History: Reports: Hx Appendectomy, Hx Cholecystectomy, Hx Herniorrhaphy, Hx Hysterectomy, Hx Orthopedic Surgery - rotator cuff. Denies: Hx Mastectomy, Hx Open Heart Surgery, Hx Pacemaker - Immunizations Immunizations up to date: Yes Hx Diphtheria, Pertussis, Tetanus Vaccination: No Physical Exam - Vital signs Vitals: Temp Pulse Resp BP Pulse Ox 98.3 F 91 22 H 98/58 L 96 08/04/20 19:21 08/04/20 19:21 08/04/20 19:21 08/04/20 19:21 08/04/20 19:21 - General General appearance: Alert In distress: Moderate Notes: Significant swelling to the right knee with ecchymosis, additional ecchymosis to the left knee, tenderness to the left shoulder Course - Vital Signs Vital signs: Temp Pulse Resp BP Pulse Ox 98.3 F 91 22 H 98/58 L 96 08/04/20 19:21 08/04/20 19:21 08/04/20 19:21 08/04/20 19:21 08/04/20 19:21 Doctor's Discharge - Discharge Referrals: LELE BUTTERFIELD PA-C [Primary Care Provider] - Follow up as needed
--- NOTE | 2020-08-04 21:04 | RADIOLOGY REPORT (SQ) ---
EXAM DESCRIPTION: XR CHEST 1 VIEW COMPLETED DATE/TME: 08/04/2020 20:01 CLINICAL HISTORY: 74 years, Female, falls COMPARISON: None. NUMBER OF VIEWS: TECHNIQUE: LIMITATIONS: None. FINDINGS: There is emphysema. No evidence of pulmonary consolidation or pleural effusion. The heart and mediastinum are unremarkable. Pulmonary vascularity appears normal. There are atherosclerotic changes and tortuosity of the thoracic aorta. No gross evidence of fracture. IMPRESSION: Emphysema. copyright 2010 [employer]- All Rights Reserved
--- NOTE | 2020-08-04 21:06 | RADIOLOGY REPORT (SQ) ---
EXAM DESCRIPTION: XR left shoulder 2 views COMPLETED DATE/TME: 08/04/2020 20:01 CLINICAL HISTORY: 74 years, Female, falls COMPARISON: None. NUMBER OF VIEWS: TECHNIQUE: LIMITATIONS: None. FINDINGS: No fracture or dislocation. There are mild degenerative changes involving the acromioclavicular joint. IMPRESSION: No fracture or dislocation. copyright 2010 [employer]- All Rights Reserved
--- NOTE | 2020-08-04 22:10 | RADIOLOGY REPORT (SQ) ---
Pelvis and bilateral hip x-rays three views on 08/04/2020 at 9:41 PM CLINICAL INDICATION: Pain after fall COMPARISON: CT from 01/21/2020 FINDINGS: The hips are well located. The SI joints are well aligned. There are no fractures. No significant degenerative changes are noted. IMPRESSION: No acute abnormality.
--- NOTE | 2020-08-04 22:12 | RADIOLOGY REPORT (SQ) ---
CLINICAL INDICATION: falls. Pain. TECHNIQUE: 4 view(s) were obtained of the left knee. COMPARISON: None. FINDINGS: No acute displaced fracture is identified of the knee. Alignment appears anatomic. Tricompartment osteoarthritis, most prominent in the medial compartment. No significant joint effusion. Soft tissue swelling. IMPRESSION: No evidence of acute displaced fracture of the knee. Osteoarthritis
--- NOTE | 2020-08-04 22:13 | RADIOLOGY REPORT (SQ) ---
4 VIEWS RIGHT KNEE HISTORY: Knee pain post fall. COMPARISON: None. FINDINGS: No acute fracture or dislocation is seen. Mild degenerative changes of the medial and patellofemoral compartments with joint space loss and osteophytes. No knee joint effusion. Diffuse soft tissue swelling surrounding the right knee. No foreign bodies. Generalized osteopenia is present. IMPRESSION: Mild degenerative changes. No acute fracture. Soft tissue swelling.
[2020-08-04] MEDS ORDERED: ONDANSETRON 4 MG TAB.RAPDIS PO ONE (22:14)
[2020-08-04] MEDS ORDERED: HYDROCODONE/ACETAMINOPHEN 5-325 MG TABLET PO ONE (22:14)
--- NOTE | 2020-08-04 22:15 | ER Document Report ---
ED General - General Chief Complaint: Leg Pain Stated Complaint: FALL/LEG PAIN Time Seen by Provider: 08/04/20 19:56 Primary Care Provider: LELE BUTTERFIELD PA-C [Primary Care Provider] - Follow up as needed Mode of Arrival: Wheelchair TRAVEL OUTSIDE OF THE [place] IN LAST 30 DAYS: No - HPI Onset/Duration: Sudden Quality of pain: Sharp Severity: Moderate Pain Level: 3 Context: This is a 74-year-old female who presents to the emergency department compl aining of right knee and left shoulder pain after falling at home earlier today. Patient states that she denies loss of consciousness, shortness of breath, chest pain. Patient states she has a history of CVA, COPD CHF hypertension diabetes. Patient states that she is allergic to ibuprofen and Tylenol does not help pain for her. Patient denies slurred speech or visual changes. Patient denies history of syncopal episodes. Patient describes her pain as sharp and rates it as a 3 on a scale of 0-5. Patient states movement exacerbates her symptoms and staying still slightly helps her symptoms. Patient states she also had one previous fall which involved her landing on her left knee which she states is painful. Associated symptoms: None Exacerbated by: Movement Relieved by: Remaining still - Related Data Allergies/Adverse Reactions: ibuprofen [From Motrin] Allergy (Intermediate, Verified 09/20/19 16:59) RASH/UTICARTIA Past Medical History - General Information source: Patient - Social History Smoking Status: Current Every Day Smoker Family History: Reviewed & Not Pertinent, CAD, COPD, DM, Hypertension, Malignancy - Past Medical History Cardiac Medical History: Reports: Hx Congestive Heart Failure, Hx Coronary Artery Disease, Hx DVT, Hx Hypertension Denies: Hx Atrial Fibrillation, Hx Heart Attack, Hx Heart Murmur Pulmonary Medical History: Reports: Hx Asthma, Hx COPD, Hx Pneumonia Denies: Hx Bronchitis, Hx Respiratory Failure, Hx Sleep Apnea, Hx Tuberculosis Neurological Medical History: Denies: Hx Cerebrovascular Accident, Hx Seizures, Hx Parkinson's Disease Endocrine Medical History: Reports: Hx Diabetes Mellitus Type 2. Denies: Hx Diabetes Mellitus Type 1, Hx Hyperthyroidism, Hx Hypothyroidism Renal/ Medical History: Reports: Hx Renal Insufficiency. Denies: Hx Peritoneal Dialysis GI Medical History: Reports: Hx Diverticulitis, Hx Gastroesophageal Reflux Disease. Denies: Hx Cirrhosis, Hx Crohn's Disease, Hx Hepatitis, Hx Hiatal Hernia, Hx Pancreatitis, Hx Ulcer - ?, Hx Ulcerative Colitis Musculoskeletal Medical History: Reports Hx Arthritis, Denies Hx Gout, Denies Hx Systemic Lupus Erythematosus Skin Medical History: Denies Hx Eczema, Denies Hx Psoriasis Psychiatric Medical History: Denies: Hx Depression Traumatic Medical History: Reports: Hx Fractures - several broken ribs Infectious Medical History: Denies: Hx Hepatitis Past Surgical History: Reports: Hx Appendectomy, Hx Cholecystectomy, Hx Herniorrhaphy, Hx Hysterectomy, Hx Orthopedic Surgery - rotator cuff. Denies: Hx Mastectomy, Hx Open Heart Surgery, Hx Pacemaker - Immunizations Immunizations up to date: Yes Hx Diphtheria, Pertussis, Tetanus Vaccination: No Hx Pneumococcal Vaccination: 08/30/14 Review of Systems - Review of Systems Constitutional: No symptoms reported EENT: No symptoms reported Cardiovascular: No symptoms reported Respiratory: No symptoms reported Gastrointestinal: No symptoms reported Genitourinary: No symptoms reported Female Genitourinary: No symptoms reported Musculoskeletal: See HPI Skin: No symptoms reported Hematologic/Lymphatic: No symptoms reported Neurological/Psychological: No symptoms reported -: Yes All other systems reviewed and negative Physical Exam - Vital signs Vitals: Temp Pulse Resp BP Pulse Ox 98.3 F 91 22 H 98/58 L 96 08/04/20 19:21 08/04/20 19:21 08/04/20 19:21 08/04/20 19:21 08/04/20 19:21 - Notes Notes: CONSTITUTIONAL [Vital signs reviewed, Patient appears comfortable, Alert and oriented X 3, Normal stature.] HEAD [Atraumatic, Normocephalic.] EYES [Eyes are normal to inspection, No discharge from eyes, Extraocular muscles intact, Sclera are normal, Conjunctiva are normal.] ] NECK [Normal ROM, No jugular venous distention, No meningeal signs, no carotid bruit.] RESPIRATORY CHEST [Chest is nontender, Breath sounds normal, No respiratory distress.] CARDIOVASCULAR [RRR, No murmurs, Normal S1 S2, No rub, No gallop.] ABDOMEN [Abdomen is nontender, No pulsatile masses, No other masses, Bowel sounds normal, No distension, No peritoneal signs, No hernias.] BACK [There is no CVA Tenderness, There is no tenderness to palpation, Normal inspection.] UPPER EXTREMITY Upper extremity exam is significant for tenderness to palpation of the left shoulder. There is no anterior fullness, crepitus, step-off or deformity noted. Remainder of upper extremity exam is unremarkable.] LOWER EXTREMITY Lower extremity exam is significant for moderate edema and tenderness to palpation of the right knee. There is no crepitus, step-off, deformity noted on exam. There is no gross laxity of ligaments. Patient's left knee is slightly tender to palpation. The remainder of the lower extremity exam is unremarkable. NEURO [No focal motor deficits, No focal sensory deficits, Speech normal.] SKIN [Skin is warm, Skin is dry, Skin is normal color.] LYMPHATIC [No adenopathy in neck.] PSYCHIATRIC [Normal affect. ] Course - Re-evaluation Re-evalutation: 08/05/20 00:17 Results of ED MSE discussed with patient. All questions were answered prior to discharge. Emergency signs and symptoms, reasons to return to the emergency department discussed with patient. - Vital Signs Vital signs: Temp Pulse Resp BP Pulse Ox 98.3 F 91 22 H 98/58 L 96 08/04/20 19:21 08/04/20 19:21 08/04/20 19:21 08/04/20 19:21 08/04/20 19:21 - Laboratory Result Diagrams: 08/04/20 22:05 08/04/20 22:05 Laboratory results interpreted by me: 08/04/20 08/04/20 22:05 22:05 WBC 15.8 H RBC 3.33 L Hgb 10.3 L Hct 31.1 L RDW 15.1 H Lymph % (Auto) 11.1 L Absolute Neuts (auto) 13.0 H Seg Neutrophils % 82.4 H BUN 24 H Creatinine 1.88 H Est GFR ( Amer) 32 L Est GFR (MDRD) Non-Af 26 L Glucose 151 H - Diagnostic Test Radiology reviewed: Reports reviewed - EKG Interpretation by Me Additional EKG results interpreted by me: 08/04/20 22:32 EKG obtained on 08/04/2020 at 2054 hrs. was interpreted by this MD. Findings normal sinus rhythm, rate 78, CO interval appears within normal limits, P waves proceed QRS complexes, left bundle branch block is present, left bundle branch was also present on EKG from 09/20/2019, there are no obvious patterns of ST segment elevation or depression present to suggest acute myocardial ischemia or infarction. Impression: Normal sinus rhythm with nonspecific ST segments and left bundle branch block that is pre-existing on prior EKG. Discharge - Discharge Clinical Impression: Multiple contusions Accidental fall Qualifiers: Encounter type: initial encounter Qualified Code(s): W19.XXXA - Unspecified fall, initial encounter Condition: Stable Disposition: HOME, SELF-CARE Additional Instructions: Return to the Emergency Department without delay if any worse. HOME CARE INSTRUCTIONS & INFORMATION: Thank you for choosing us for your medical needs. We hope you're satisfied with the care you received. After you leave, you must properly care for your problem and, at the same time, observe its progress. Any condition can change. Some illnesses can change rapidly over hours or days. If your condition worsens, return to the Emergency Department or see your physician promptly. ABOUT YOUR X-RAYS AND EKG'S: If you had an EKG or X-rays taken, they have been read by the Emergency Physician. The X-rays and EKG's will also be read by a Radiologist or Manager Social Responsibility within 24 hours. If discrepancies are noted, you will be notified by telephone. Please be certain the ED has a correct telephone number & address where you can be reached. Also, realize that some fractures or abnormalities do not show up on initial X-rays. If your symptoms continue, see your physician. ABOUT YOUR LABORATORY TEST: If you had laboratory tests, the results have been reviewed by the Emergency Physician. Some test results (for example cultures) may not be available for several days. You will be contacted if any test result shows you need additional treatment. Please be certain the ED has a correct telephone number and address where you can be reached. ABOUT YOUR MEDICATIONS: You will receive instructions on how to take your medicine on the prescription label you receive. Additional information may be provided by the Pharmacy. If you have questions afterwards, call the ED for clarification or further instructions. Some prescribed medications may cause drowsiness. Do not perform tasks such as driving a car or operating machinery without consulting your Pharmacist. If you feel you need a refill of pain medi cation, your condition will need re-evaluation. Please do not call for a refill of any medication. ABOUT YOUR SIGNATURE: Signature of this document acknowledges to followin. Understanding that you received emergency treatment and that you may be released before al medical problems are known or treated. Please be certain the ED has a correct phone number & address where you can be reached. 2. Acknowledgement that you will arrange for follow-up care as recommended. 3. Authorization for the Emergency Physician to provide information to your follow-up Physician in order to maximize your care. AT ANY TIME, IF YOUR SYMPTOMS CHANGE SIGNIFICANTLY OR WORSEN OR YOU DEVELOP NEW SYMPTOMS, RETURN TO THE EMERGENCY DEPARTMENT IMMEDIATELY FOR RE-EVALUATION. OUR GOAL IS TO PROVIDE EXCELLENT MEDICAL CARE! WE HOPE THAT WE HAVE MET YOUR EXPECTATIONS DURING YOUR EMERGENCY DEPARTMENT VISIT AND THAT YOU FEEL YOU HAVE RECEIVED EXCELLENT CARE! Contusion Your injury has resulted in a contusion -- a crushing of the deep tissues. No injury to important structures was detected during the physician's exam. Contusions vary in the amount of pain they cause, and in the length of time required for healing. Typically, the area will become bruised, and will remain painful to touch for two or three weeks. However, most patients are back to working and playing within a few days. After the initial period of rest and cold-packs, your symptoms (together with the doctor's recommendations) will determine how rapidly you can get back to full activity. Usually this means "do what feels okay, but don't do things that hurt." If re-examination was recommended, it's important to follow up as instructed. Call the doctor or return any time if pain increases, if swelling becomes severe, if you develop numbness or weakness in an injured extremity, or if any other alarming symptoms occur. Prescriptions: Hydrocodone/Acetaminophen [Levels 5-325 mg Tablet] 1 tab PO Q6HP PRN #12 tablet PRN Reason: pain Referrals: LELE BUTTERFIELD PA-C [Primary Care Provider] - Follow up as needed
[2020-08-04 22:28] LABS: ABSOLUTE EOSINOPHILS # (AUTO) 0.1 10^3/uL (0.0-0.6); HEMATOCRIT 31.1 % (36.0-47.0); TOTAL CELLS COUNTED % (AUTO) 100 %
[2020-08-04 22:30] LABS: ABSOLUTE BASOPHILS # (AUTO) 0.1 10^3/uL (0.0-0.2); ABSOLUTE LYMPHOCYTES (AUTO) 1.7 10^3/uL (0.5-4.7); ABSOLUTE MONOCYTES (AUTO) 0.8 10^3/uL (0.1-1.4); BASOPHILS % (AUTO) 0.9 % (0-2); EOSINOPHILS % (AUTO) 0.7 % (0-6); HEMOGLOBIN 10.3 g/dL (12.0-15.5); LYMPHOCYTES % (AUTO) 11.1 % (13-45); MEAN CORPUSCULAR HEMOGLOBIN 30.9 pg (27.0-33.4); MEAN CORPUSCULAR VOLUME 93 fl (80-97); MONOCYTES % (AUTO) 4.9 % (3-13); PLATELET COUNT 310 10^3/uL (150-450); RED BLOOD COUNT 3.33 10^6/uL (3.72-5.28); RED CELL DISTRIBUTION WIDTH 15.1 % (11.5-14.0); SEGMENTED NEUTROPHILS % (AUTO) 82.4 % (42-78); WHITE BLOOD COUNT 15.8 10^3/uL (4.0-10.5)
[2020-08-04 22:43] LABS: ALBUMIN 3.7 g/dL (3.5-5.0); ALKALINE PHOSPHATASE 87 U/L (38-126); ANION GAP 9 (5-19); ASPARTATE AMINO TRANSFERASE 20 U/L (14-36); BILIRUBIN,DIRECT 0.4 mg/dL (0.0-0.4); BILIRUBIN,TOTAL 0.4 mg/dL (0.2-1.3); BLOOD UREA NITROGEN 24 mg/dL (7-20); CALCIUM 8.9 mg/dL (8.4-10.2); CARBON DIOXIDE 28 mmol/L (22-30); CHLORIDE 100 mmol/L (98-107); GLUCOSE 151 mg/dL (75-110); POTASSIUM 4.9 mmol/L (3.6-5.0); TOTAL PROTEIN 6.5 g/dL (6.3-8.2)
[2020-08-05] MEDS ORDERED: HYDROCODONE/ACETAMINOPHEN 5-325 MG (6 TAB/ER DISP) PO PRN (00:16)
[2020-08-05 00:55] VITALS: BP 113/55
--- NOTE | 2020-08-05 02:23 | EKG REPORT ---
SEVERITY:- ABNORMAL ECG - SINUS RHYTHM INCOMPLETE LEFT BUNDLE BRANCH BLOCK BORDERLINE R WAVE PROGRESSION, ANTERIOR LEADS : Confirmed by: Ernesto Rodríguez MD 05-Aug-2020 02:23:25
== END 2020-08-05 00:55 | disposition home or self-care (01) ==
LOC: ER 19:10
DX: S80.01XA Contusion of right knee, initial encounter (principal); S40.012A Contusion of left shoulder, initial encounter; W17.89XA Other fall from one level to another, initial encounter; Y92.009 Unspecified place in unspecified non-institutional (private) residence as the place of occurrence of the external cause; F17.200 Nicotine dependence, unspecified, uncomplicated; I50.9 Heart failure, unspecified; I11.0 Hypertensive heart disease with heart failure; I25.10 Atherosclerotic heart disease of native coronary artery without angina pectoris; E11.9 Type 2 diabetes mellitus without complications; Z88.6 Allergy status to analgesic agent
CPT/HCPCS: 93005; 99285; 36415; 85025; 80053; 71045; 73564 ×2; 73522; 73030; 93010; A9270 ×4; S0119

== ENCOUNTER 2020-09-19 10:33 | Outpatient (CLI) | payer MEDICARE ==
[2020-09-19] MEDS ORDERED: FERUMOXYTOL (NON-ESRD) 510 MG/NS 100 ML IV PRN ×2 (11:09)
[2020-09-19] MEDS ORDERED: NORMAL SALINE 250 ML IV PRN (11:09)
[2020-09-19 11:13] VITALS: BP 124/61
== END 2020-09-19 13:22 | disposition home or self-care (01) ==
LOC: II 10:33 → 5TH 11:21 → II 13:22
PROVIDERS: ATTEND Internal Medicine
DX: D50.9 Iron deficiency anemia, unspecified (principal); N18.2 Chronic kidney disease, stage 2 (mild)
CPT/HCPCS: 96365; Q0138; J7050

== ENCOUNTER 2020-09-26 11:42 | Outpatient (CLI) | payer MEDICARE ==
[~2020-09-26 11:42] MED LIST changes: -EPINEPHRINE INJ 1 MG/10 ML DISP.SYRIN ONE; +FERUMOXYTOL (NON-ESRD) 510 MG/NS 100 ML IV PRN; -FLUMAZENIL INJ 0.5 MG/5 ML VIAL ONE; -GLUCAGON,HUMAN RECOMB 1 MG INJ ONE; -NALOXONE HCL INJ/PF 0.4 MG/1 ML SDV ONE; +NORMAL SALINE 250 ML IV PRN; -ONDANSETRON HCL INJ/PF 4 MG/2 ML SDV ONE
[2020-09-26 12:10] VITALS: BP 102/36
== END 2020-09-26 13:15 | disposition home or self-care (01) ==
LOC: II 11:42 → 5TH 11:57 → II 13:15
PROVIDERS: ATTEND Internal Medicine
DX: D50.9 Iron deficiency anemia, unspecified (principal); N18.2 Chronic kidney disease, stage 2 (mild)
CPT/HCPCS: 96365; Q0138; J7050